=== PATIENT | female | born 1985 | race Caucasian/White ===

== ENCOUNTER 2024-04-11 12:31 | Outpatient (CLI) | payer OTHER, SELFPAY ==
--- OUTSIDE RECORDS SUMMARY | 2024-04-11 12:35 | XMS_ITS | Clinical Summary ---
Author Organization [facility] Address [address] [place] [place] [address] Care Team Providers Care Plastic Surgery Technician Name Role Phone Deja Mendez PA-C Unavailable [phone] Allergies No known active allergies Medications Medication Sig Dispensed Refills Start Date End Date Status hydrOXYzine (ATARAX) 25 MG tabletIndications:A nxiety Take 0.5-1 tablets (12.5-25 mg) by mouth 3 times daily as needed for anxiety 30 tablet 11/24/2022 Active Additional Information Patient not taking.Reported on 12/14/2023 FLUoxetine (PROZAC) 40 MG capsuleIndications: Moderate major depression (H) Take 1 capsule (40 mg) by mouth daily 90 capsule 1 04/20/2023 Active ADDERALL XR 10 MG 24 hr capsuleIndications: ADHD (attention deficit hyperactivity disorder), combined type TAKE ONE CAPSULE BY MOUTH ONCE DAILY 30 capsule 10/01/2023 Active ADDERALL XR 30 MG 24 hr capsuleIndications: ADHD (attention deficit hyperactivity disorder), combined type TAKE ONE CAPSULE BY MOUTH ONCE DAILY 30 capsule 10/01/2023 Active amphetamine-dextroa mphetamine (ADDERALL XR) 10 MG 24 hr capsuleIndications: ADHD (attention deficit hyperactivity disorder), combined type Take 1 capsule (10 mg) by mouth daily 30 capsule 12/10/2023 Active amphetamine-dextroa mphetamine (ADDERALL XR) 30 MG 24 hr capsuleIndications: ADHD (attention deficit hyperactivity disorder), combined type Take 1 capsule (30 mg) by mouth daily 30 capsule 12/10/2023 Active levothyroxine (SYNTHROID/LEVOTHRO ID) 25 MCG tabletIndications:H ypothyroidism, unspecified type Take 1 tablet (25 mcg) by mouth daily 90 tablet 1 12/14/2023 Active citalopram (CELEXA) 10 MG tabletIndications:M oderate major depression (H),Anxiety Take 1 tablet (10 mg) by mouth daily 30 tablet 02/11/2024 Active amphetamine-dextroa mphetamine (ADDERALL XR) 10 MG 24 hr capsuleIndications: ADHD (attention deficit hyperactivity disorder), combined type Take 1 capsule (10 mg) by mouth daily for 30 days Take in combination with 30 XR 30 capsule 03/08/2024 4 amphetamine-dextroa mphetamine (ADDERALL XR) 30 MG 24 hr capsuleIndications: ADHD (attention deficit hyperactivity disorder), combined type Take 1 capsule (30 mg) by mouth daily for 30 days 30 capsule 03/08/2024 4 Active Problems Problem Noted Date Diagnosed Date Controlled substance agreement signed 11/24/2022 Cervical high risk HPV (human papillomavirus) te st positive 03/15/2018 Overview: Hx of LSIL in 2014, no record of colposcopy. 03/15/18 NIL, +HR HPV, not 16/18. Plan colp 10/06/18 Patient is lost to pap tracking follow-up. 07/28/19 NIL, +HR HPV, not 16/18. Plan [place] 06/11/20 Patient is lost to pap tracking follow-up. 11/21/21 NIL Pap, Neg HPV. Plan cotest in 1 year. 11/28/2021 MyChart result note sent. Not read. Letter sent to pt 11/04/2022 Reminder MyChart 11/24/22 appt - added note 01/26/23 appt - canceled 02/17/2023 Reminder call - lm 04/20/23 appt - period started. Will schedule another appt for pap. 05/03/2023 Lost to follow-up for pap tracking - pt aware she needs pap done. Hypothyroidism 01/01/2016 Red blood cell antibody positive 12/04/2014 Overview: Unidentified Antibody Present Antibody with no identifiable specific reactivity. ADHD (attention deficit hype ractivity disorder), combined type 07/04/2013 Overview: Patient is followed by MARIEL GALINDO for ongoing prescription of stimulants. All refills should be approved by this provider, or covering partner. Medication(s): GENERIC ADDERALL 10 MG. And Generic Adderall XR 30 MG Maximum quantity per month: 30 Clinic visit frequency required: Q 3 months Controlled substance agreement on file: Date(s): 01/01/16 Neuropsych evaluation for ADD completed: UNKNOWN Last [employer] website verification: 06/28/19 [email or web address] Last Assessment & Plan: Patient is followed by MARIEL GALINDO for ongoing prescription of stimulants. All refills should be approved by this provider, or covering partner. Medication(s): amphetamine-dextroamphetamine (ADDERALL XR) 30 MG per 24 hr capsule. Maximum quantity per month: 30 Clinic visit frequency required: Q 6 months Controlled substance agreement on file: No Neuropsych evaluation for ADD completed: No Last [employer] website verification: done on 05.10.17 [email or web address] CARDIOVASCULAR SCREENING; LDL GOAL LESS THAN 160 08/08/2012 Moderate major depression 08/08/2012 Anxiety 08/08/2012 Resolved Problems Problem Noted Date Diagnosed Date Resolved Date Anemia due to blood loss, acute 12/05/2020 10/16/2021 12/03/2020 10/16/2021 (spontaneous vaginal delivery) 09/25/2016 10/16/2021 Labor and delivery, indication for care 09/24/2016 10/23/2016 Labor abnormality, antepartum 06/14/2015 06/19/2015 (spontaneous vaginal delivery) 06/14/2015 10/23/2016 Encounter for triage in patient 05/15/2015 06/19/2015 Indication for care in labor or delivery 12/31/2014 01/01/2016 Rubella non-immune status, antepartum 12/04/2014 10/23/2016 Overview: Rubella immunity equivocal Encounter for supervision of other normal 11/28/2014 06/19/2015 Overview: Diagnosis updated by automated process. Provider to review and confirm. History of hypothyroidism as a child 11/28/2014 01/01/2016 Encounters Date Type Department Care Team Description 02/11/2024 Refill M [address] [address] Deja Mendez PA-C Refill Request from Last 3 Months Immunizations Name Administration Dates Next Due Influenza Vaccine >6 months,quad, PF 07/28/2019, 07/11/2018 TDAP (Adacel,Boostrix) 05/13/2015 TDAP Vaccine (Adacel) 10/22/2020 Tdap (Adult) Unspecified Formulation 07/23/2016 Family History Medical History Relation Comments Depression/Anxiety Father Hyperlipidemia Father Hypertension Father Thyroid Disease Maternal Grandfather Cancer Maternal Grandmother Thyroid Disease Mother Depression/Anxiety Sister 3 Known Genetic Syndrome Sister 4 Austic Autism Spectrum Disorder Sister 5 Anesthesia Reaction No family hx of Breast Cancer No family hx of Cancer - colorectal No family hx of Cerebrovascular Disease No family hx of Chemical Addiction No family hx of Coronary Artery Disease No family hx of Diabetes No family hx of Osteoporosis No family hx of Ovarian Cancer No family hx of Prostate Cancer No family hx of Relation Status Comments Father Alive Maternal Grandfather Alive Maternal Grandmother CA Mother Alive Paternal Grandfather Alive Paternal Grandmother Alive Sister 1 Alive Sister 2 Alive Sister 3 Sister 4 Sister 5 Son 1 Alive Son 2 Alive Social History Tobacco Use Types Packs/Day Years Used Date Smoking Tobacco: Never Smokeless Tobacco: Never Tobacco Cessation:Counseling Given: Yes Alcohol Use Standard Drinks/Week Comments Yes 0 (1 standard drink = 0.6 oz pur e alcohol) wine occasionally Social Connection and Isolation Panel [NHANES] A nswer Date Recorded In a typical week, how many times do you talk on the phone with family, friends, or neighbors? Twice a week 04/20/2023 How often do you get togethe r with friends or relatives? Patient declined 04/20/2023 How often do you attend alevism or scientologist serv ices? Never 04/20/2023 Do you belong to any clubs o r organizations such as alevism groups, unions, fraternal or athletic groups, or school groups? No 04/20/2023 Attends Club or Organization Meetings Not on leighton e 04/20/2023 Are you , , di vorced, , never , or living with a partner? 04/20/2023 AUDIT-C Answer Date Recorded Q1: How often do you have a drink containing alcohol? 4 or more times a week 04/20/2023 Q2: How many drinks containi ng alcohol do you have on a typical day when you are drinking? 1 or 2 3 Q3: How often do you have si x or more drinks on one occasion? Never 04/20/2023 Overall Financial Resource Strain (CARDIA) Answe r Date Recorded How hard is it for you to pa y for the very basics like food, housing, medical care, and heating? Not very hard 04/20/2023 PHQ-2 Answer Date Recorded PHQ-2 Score 3 12/14/2023 [facility] - Occupational Stress Questionnaire Answer Date Recorded Do you feel stress - tense, restless, nervous, or anxious, or unable to sleep at night because your mind is troubled all the time - these days? Rather much 04/20/2023 Exercise Vital Sign Answer Date Recorde d On average, how many days pe r week do you engage in moderate to strenuous exercise (like a brisk walk)? 3 days 04/20/2023 On average, how many minutes do you engage in exercise at this level? 30 min 04/20/2023 Hunger Vital Sign Answer Date Recorded Within the past 12 months, y ou worried that your food would run out before you got the money to buy more. Never true 04/20/20 23 Within the past 12 months, t he food you bought just didn't last and you didn't have money to get more. Never true 04/20/2023 PRAPARE - Transportation Answer Date Re corded In the past 12 months, has l ack of transportation kept you from medical appointments or from getting medications? No 04/2023 In the past 12 months, has l ack of transportation kept you from meetings, work, or from getting things needed for daily living? No 04/20/2023 Housing Stability Vital Sign Answer Clayton e Recorded In the last 12 months, was t here a time when you were not able to pay the mortgage or rent on time? No 04/20/2023 In the last 12 months, how many places have you lived? 1 04/20/2023 In the last 12 months, was t here a time when you did not have a steady place to sleep or slept in a fpc (including now)? No 04/20/2023 [place] Depression Scale Answer Date Recorded [place] Depression Score 16 12/04/2020 Last EPDS Self Harm Result Not on file 12/04 Adolescent Education Answer Date Record ed Getting School Help Needed Not on file 06/04 Sex and Gender Information Value Date Recorded Sex Assigned at Female 04/07/2021 2:32 PM CDT Gender Identity Female 04/07/2021 2:32 PM CDT Sexual Orientation Straight 04/07/2021 2: 32 PM CDT Last Filed Vital Signs Vital Sign Reading Time Taken Comments Blood Pressure 115/80 04/20/2023 3:02 PM CDT Pulse 103 04/20/2023 3:02 PM CDT Temperature 36.7 ??C (98 ??F) 04/20/2023 3:02 PM CDT Respiratory Rate 18 04/20/2023 3:02 PM CDT Oxygen Saturation 98% 04/20/2023 3:02 PM CDT Inhaled Oxygen Concentration - - Weight 65.3 kg (144 lb) 04/20/2023 3:02 PM CDT Height 165.1 cm (5' 5) 04/20/2023 3:02 PM CDT Body Mass Index 23.96 04/20/2023 3:02 PM CDT Plan of Treatment Health Maintenance Due Date Last Done Comments HEPATITIS B IMMUNIZATION (1 of 3 - 19+ 3-dose series) 2004 HPV FOLLOW-UP 11/21/2022 11/21/2021, 0 09/2019, 05/14/2020, Additional history exists PAP FOLLOW-UP 11/21/2022 11/21/2021, 0 09/2019, 05/14/2020, Additional history exists COVID-19 Vaccine ( season) 2023 TSH W/FREE T4 REFLEX 11/25/2023 11/24/2022, 10/16/2021, 07/28/2019, Additional history exists YEARLY PREVENTIVE VISIT 04/20/2024 04/20/20 23, 11/21/2021, 03/15/2018 INFLUENZA VACCINE (#1) 2024 07/28/2019, 2017 PHQ-9 06/14/2024 12/14/2023, 08/0 04/2023, 01/25/2023, Additional history exists ANNUAL REVIEW OF HM ORDERS 12/13/202412/13, 11/24/2022, 11/21/2021, Additional history exists GLUCOSE 04/20/2026 04/20/2023, 10/16/2021 ADVANCE CARE PLANNING 11/21/2026 11/21/2021 DTAP/TDAP/TD IMMUNIZATION (4 - Td or Tdap) 10/22/2030 10/22/2020, 07/23/2016, 05/13/2015 HIV SCREENING Completed 05/20/2016, 11/28/2014 DEPRESSION ACTION PLAN Completed 8, 10/23/2016, 06/19/2015, Additional history exists PAP Discontinued 11/21/2021, 090 09/2019, 05/14/2020, Additional history exists HEPATITIS C SCREENING Completed 04/20/2023 HPV IMMUNIZATION Aged Out No longer e ligible based on patient's age to complete this topic IPV IMMUNIZATION Aged Out No longer e ligible based on patient's age to complete this topic MENINGITIS IMMUNIZATION Aged Out No l onger eligible based on patient's age to complete this topic Pneumococcal Vaccine: Pediatrics (0 to 5 Years) and At-Risk Patients (6 to 64 Years) Aged Out No longer eligible based on patient's age to complete this topic RSV MONOCLONAL ANTIBODY Aged Out No l onger eligible based on patient's age to complete this topic Procedures Procedure Name Priority Date/Time Associated Diagnosis Comments BASIC METABOLIC PANEL Routine 04/20/2023 3:45 PM CDT Screening for diabetes mellitus HEPATITIS C SCREEN REFLEX TO HCV RNA QUANT AND GENOTYPE Routine 04/20/2023 3:45 PM CDT Need for hepatitis C screening test TSH WITH FREE T4 REFLEX Routine 11/24/2022 11:06 AM CDT Other specified hypothyroidism HPV HIGH RISK TYPES DNA CERVICAL Routine 11/21/2021 8:09 AM MASTER LAY OUT SPECIALIST Cervical cancer screening GYNECOLOGIC CYTOLOGY Routine 11/21/2021 8:09 AM MASTER LAY OUT SPECIALIST Cervical cancer screening HIV ANTIGEN ANTIBODY COMBO Routine 05/20/2016 from Last 3 Months or Most Recently Relevant to Health Maintenance Results * Hepatitis C Screen Reflex to HCV RNA Quant and Genotype (04/20/2023 3:45 PM CDT) Hepatitis C Antibody Nonreactive Nonreactive 04/22/2023 12:15 PM CDT SPECIALTY CORE/PROT/EN DO Blood BLOOD SPECIMEN / Unknown Venipuncture / Unknown 04/20/2023 3:45 PM CDT 04/20/2023 3:45 PM CDT Narrative SPECIALTY CORE/PROT/ENDO - 04/22/2023 12:15 PM CDT Assay performance characteristics have not been established for newborns, infants, and children. Nadege Robert KELLEY [facility] - BLOOD ORDE ELE[facility] SPECIALTY CORE/PROT/ENDO Specialty Core/Prot/Endo [address] [facility], [address] [address], [facility] [place] [phone] * Basic metabolic panel (Ca, Cl, CO2, Creat, Gluc, K, Na, BUN) (04/20/2023 3:45 PM CDT) Pathologist [facility] [place] Sodium 137 136 - 145 mmol/L 04/21/2023 3:40 PM CDT [facility] Potassium 4.2 3.4 - 5.3 mmol/L 04/21/2023 3:40 PM CDT [facility] Chloride 99 98 - 107 mmol/L 04/21/2023 3:40 PM CDT [facility] Carbon Dioxide (CO2) 26 22 - 29 mmol/L 04/21/2023 3:40 PM CDT [facility] Anion Gap 12 7 - 15 mmol/L 04/21/2023 3:40 PM CDT [facility] Urea Nitrogen 10.7 6.0 - 20.0 mg/dL 04/21/2023 3:40 PM CDT [facility] Creatinine 0.58 0.51 - 0.95 mg/dL 04/21/2023 3:40 PM CDT [facility] Calcium 9.6 8.6 - 10.0 mg/dL 04/21/2023 3:40 PM CDT [facility] Glucose 94 70 - 99 mg/dL 04/21/2023 3:40 PM CDT [facility] GFR Estimate >90 >60 mL/min/1.7 3m2 04/21/2023 3:40 PM CDT [facility] Blood BLOOD SPECIMEN / Unknown Venipuncture / Unknown 04/20/2023 3:45 PM CDT 04/20/2023 3:45 PM CDT Nadege Jones APRN [facility] - BLOOD ORDE [facility]AT[facility] [place] Core Lab [address] [facility], [address] [id number], [facility] [place] [phone] * TSH WITH FREE T4 REFLEX (11/24/2022 11:06 AM CDT) TSH 1.31 0.30 - 4.20 uIU/mL 11/24/2022 5:51 PM CDT [facility] Blood BLOOD SPECIMEN / Unknown Venipuncture / Unknown 11/24/2022 11:06 AM CDT 11/24/2022 11:10 AM CDT Nadege Jones APRN [facility] - BLOOD ORDE [facility] [place] [facility] Lab [address] [facility] [id number], [facility] [place] [phone] * Pap Screen with HPV - recommended age 30 - 65 years (11/21/2021 8:09 AM MASTER LAY OUT SPECIALIST) Interpretation Negative for Intraepithelial Lesion or Malignancy (NILM) 11/25/2021 9:24 AM CDT SPECIALTY LABS Comment Papanicolaou Test Limitations: Cervical cytology is a screening test with limited sensitivity, and regular screening is critical for cancer prevention. Pap tests are primarily effective for the diagnosis/prevent ion of squamous cell carcinoma, not adenocarcinoma or other cancers. 11/25/2021 9:24 AM CDT [facility] LAB[facility] Specimen Adequacy Satisfactory for evaluation, endocervical/winters sformation zone component present 11/25/2021 9:24 AM CDT [facility] Clinical Information none 11/25/2021 9:24 AM CDT [facility] LMP/Menopause Date 11/05/2021 11/25/2021 9:24 AM CDT [facility] Reflex Testing Yes regardless of result 11/25/2021 9:24 AM CDT [facility] LAB[facility] Previous Abnormal? No 11/25/2021 9:24 AM CDT [facility] Performing Labs The technical component of this testing was completed at [facility] 11/25/2021 9:24 AM CDT SPECIAL[facility] LABS Brushing CERVIX UTERI STRUCTURE / Unknown 11/21/2021 8:09 AM MASTER LAY OUT SPECIALIST 11/21/2021 8:24 AM MASTER LAY OUT SPECIALIST Mariel Galindo APRN [facility] Specialty Lab [address] [facility], [address] [address], [facility] [place] [phone] * HPV High Risk Types DNA Cervical (11/21/2021 8:09 AM MASTER LAY OUT SPECIALIST) Other HR HPV Negative Negative 11/26/2021 2:10 PM CDT [facility]ST[facility] HPV16 DNA Negative Negative 11/26/2021 2:10 PM CDT [facility]AG[facility]ST[facility] HPV18 DNA Negative Negative 11/26/2021 2:10 PM CDT [facility] DIAGNOSTICS FINAL DIAGNOSIS This patient's sample is negative for HPV DNA. This test was developed and its performance characteristics determined by the [facility], Molecular Diagnostics Laboratory. It has not been cleared or approved by the FDA. The laboratory is regulated under CLIA as qualified to perform high-complexity testing. This test is used for clinical purposes. It should not be regarded as investigational or for research. METHODOLOGY: The Andreas Amada 4800 system uses automated extraction, simultaneous amplification of HPV (L1 region) and beta-globin, followed by real time detection of fluorescent labeled HPV and beta globin using specific oligonucleotide probes. The test specifically identified types HPV 16 DNA and HPV 18 DNA while concurrently detecting the rest of the high risk types (31, 33, 35, 39, 45, 51, 52, 56, 58, 59, 66 or 68). COMMENTS: This test is not intended for use as a screening device for woman under age 30 with normal cervical cytology. Results should be correlated with cytologic and histologic findings. Close clinical followup is recommended. 11/26/2021 2:10 PM CDT [facility] Brushing CERVIX UTERI STRUCTURE / Unknown Non-blood Collection / Unknown 11/21/2021 8:09 AM MASTER LAY OUT SPECIALIST 11/25/2021 3:59 PM CDT Mariel Galindo APRN [facility] - BLOOD ORDERABLES MOLECULAR DIAGNOSTICS Molecular Diagnostics [address] [facility], [address] [place] [address], [facility] [place] [phone] * HIV Antigen Antibody Combo (05/20/2016) HIV Antigen Antibody Combo Negative Blood specimen (specimen) Patient Reported LAB - BLOOD ORDERABL ES from Last 3 Months or Most Recently Relevant to Health Maintenance Care Teams Plastic Surgery Technician Relationship Specialty Start Date End Date Deja Mendez PA-C [id number] [facility] [place] [phone] Assigned PCP 01/04/24
--- OUTSIDE RECORDS SUMMARY | 2024-04-11 12:35 | XMS_ITS | Encounter Summary ---
Author Organization [facility] Address [address] [place] [address]. [place] [address] Care Team Providers Care Detective Narcotics And Vice Name Role Phone Deja Mendez PA-C Unavailable [phone] Reason for Visit * Reason Onset Date Comments Refill Request 02/11/2024 Encounter Details Date Type Department Care Team (Late st Contact Info) Description 02/11/2024 [facility] [address] [place] [phone] Deja Mendez PA-C [id number] [place] [phone] Refill Request Social History Tobacco Use Types Packs/Day Years Used Date Smoking Tobacco: Never Smokeless Tobacco: Never Alcohol Use Standard Drinks/Week Comments Yes 0 [...] declined 04/20/2023 How often do you attend congregational or gnosticist serv ices? Never 04/20/2023 Do you belong to any clubs o r organizations such as congregational groups, unions, fraternal or athletic groups, or [...] Answer Date Recorded PHQ-2 Score 3 12/14/2023 [facility] - Occupational Stress Questionnaire Answer Date [...] place to sleep or slept in a assisted (including now)? No 04/20/2023 Antelope Depression Scale Answer Date Recorded Antelope Depression Score 16 12/04/2020 Last EPDS Self Harm Result Not on file 12/04 Adolescent Education Answer Date Record ed Getting School Help Needed Not on file 06/04 Sex and Gender Information Value Date Recorded Sex Assigned at Female 04/07/2021 2:32 PM CDT Gender Identity Female 04/07/2021 2:32 PM CDT Sexual Orientation Straight 04/07/2021 2: 32 PM CDT documented as of this encounter Miscellaneous Notes * Telephone Encounter - Kiley Ba MA - 02/14/2024 8:40 AM CDT Pt informed. She was not able to schedule a appointment at the moment but says she will call back to schedule. * Telephone Encounter - Deja Mendez PA-C - 02/11/2024 2:48 PM CDT Due for virtual or in person follow up visit for med check if we could help her with scheduling this. Refilled one month supply to allow for scheduling. Thanks! Deja Mendez PA-C documented in this encounter Plan of Treatment Not on file documented as of this encounter Visit Diagnoses Diagnosis Moderate major depression (H) Major depressive disorder, single episode, moderate Anxiety Anxiety state, unspecified documented in this encounter Additional Health Concerns Assessment Noted Time PHQ-9 Depression Total Score: 12 024 4:09 PM CDT documented as of this encounter Care Teams Detective Narcotics And Vice Relationship Specialty Start Date End Date Deja Mendez PA-C [address] [place] [address] Assigned PCP 01/04/24 documented as of this encounter
--- OUTSIDE RECORDS SUMMARY | 2024-04-11 12:35 | XMS_ITS | Referral Summary ---
Author Organization [facility] Address [address] [place] [address] Care Team Providers Care Registered Nurse Teacher Name Role Phone Deja Mendez PA-C Unavailable [phone] Encounters Date Type Department Care Team Description 02/11/[address] [address] Deja Mendez PA-C Refill Request from Last 3 Months Allergies No known active allergies Medications Medication [...] 07/28/19 NIL, +HR HPV, not 16/18. Plan [place] 06/11/20 Patient is lost to pap tracking [...] Neuropsych evaluation for ADD completed: UNKNOWN Last [employer] website verification: 06/28/19 [email or web address] Last Assessment & Plan: Patient is followed by MARIEL GALINDO for ongoing prescription of stimulants. All refills should be approved by this provider, or covering partner. Medication(s): amphetamine-dextroamphetamine (ADDERALL XR) 30 MG per 24 hr capsule. Maximum quantity per month: 30 Clinic visit frequency required: Q 6 months Controlled substance agreement on file: No Neuropsych evaluation for ADD completed: No Last [employer] website verification: done on 05.10.17 [email or web address] [email or web address] SCREENING; LDL GOAL LESS THAN 160 [...] of hypothyroidism as a child 11/28/2014 01/01/2016 Immunizations Name Administration Dates Next Due Influenza Vaccine >6 months,quad, PF 07/28/2019, 07/11/2018 TDAP (Adacel,Boostrix) 05/13/2015 TDAP Vaccine (Adacel) 10/22/2020 Tdap (Adult) Unspecified Formulation 07/23/2016 Social History Tobacco Use Types Packs/Day Years [...] declined 04/20/2023 How often do you attend restorationism or muslim serv ices? Never 04/20/2023 Do you belong to any clubs o r organizations such as restorationism groups, unions, fraternal or athletic groups, or [...] Answer Date Recorded PHQ-2 Score 3 12/14/2023 [facility] Occupat ional [facility] - Occupational Stress Questionnaire Answer Date Recorded [...] place to sleep or slept in a [facility] (including now)? No 04/20/2023 [place] Depression Scale Answer Date Recorded [place] Depression Score 16 12/04/2020 Last EPDS Self [...] 04/20/2023 3:02 PM CDT Plan of Treatment Not on file Procedures Procedure Name Priority Date/Time Associated Diagnosis [...] TYPES DNA CERVICAL Routine 11/21/2021 8:09 AM RESPIRATORY CARE PRACTITIONER Cervical cancer screening GYNECOLOGIC CYTOLOGY Routine 11/21/2021 8:09 AM RESPIRATORY CARE PRACTITIONER Cervical cancer screening HIV ANTIGEN ANTIBODY COMBO Routine 05/20/2016 from Last 3 Months or Most Recently Relevant to Health Maintenance Results * Hepatitis C Screen Reflex to HCV RNA Quant and Genotype (04/20/2023 3:45 PM CDT) Hepatitis C Antibody Nonreactive Nonreactive 04/22/2023 12:15 PM CDT [facility]/PROT/EN DO Blood BLOOD SPECIMEN / Unknown Venipuncture / Unknown 04/20/2023 3:45 PM CDT 04/20/2023 3:45 PM CDT Narrative [facility]/PROT/ENDO - 04/22/2023 12:15 PM CDT Assay performance characteristics have not been established for newborns, infants, and children. Nadege Jones APRN OIL PIPE INSPECTOR LAB - BLOOD ORDE ELEUTERIO [facility] CORE/PROT/ENDO [facility] Specialty Core/Prot/Endo [address] [facility], [address] [place] [address], [facility] [phone] * Basic metabolic panel (Ca, Cl, CO2, Creat, Gluc, K, Na, BUN) (04/20/2023 3:45 PM CDT) Sodium 137 136 - 145 mmol/L 04/21/2023 [...] CDT 04/20/2023 3:45 PM CDT Nadege Jones [facility] - BLOOD ORDBrandi MCCLELLAN [facility]AT[facility] [address] [facility], [address] [address], [facility] [phone] * TSH WITH FREE T4 REFLEX (11/24/2022 11:06 AM CDT) TSH 1.31 0.30 - 4.20 uIU/mL 11/24/2022 5:51 PM CDT [facility]AT[facility] Blood BLOOD SPECIMEN / Unknown Venipuncture / Unknown 11/24/2022 11:06 AM CDT 11/24/2022 11:10 AM CDT Nadege Jones [facility] - BLOOD PATRICIA HARRISONPEARL Performing Organization Address City/Va Hospital/ZIP Co de Phone Number LABORATORY [facility] Core Lab [address] [facility], [address] [address], [facility] [phone] * Pap Screen with HPV - recommended age 30 - 65 years (11/21/2021 8:09 AM RESPIRATORY CARE PRACTITIONER) Interpretation Negative for Intraepithelial Lesion or Malignancy [...] component of this testing was completed at [facility] 11/25/2021 9:24 AM CDT SPECIALTY LABS Brushing CERVIX UTERI STRUCTURE / Unknown 11/21/2021 8:09 AM RESPIRATORY CARE PRACTITIONER 11/21/2021 8:24 AM RESPIRATORY CARE PRACTITIONER Mariel Galindo APRN OIL PIPE INSPECTOR LAB - [facility] Specialty Lab 500 [facility], Room [address] [place] [address], [facility] [phone] * HPV High Risk Types DNA Cervical (11/21/2021 8:09 AM RESPIRATORY CARE PRACTITIONER) Other HR HPV Negative Negative 11/26/2021 2:10 PM CDT MOLECULAR DIAGNOSTICS HPV16 DNA Negative Negative 11/26/2021 2:10 PM CDT MOLECULAR DIAGNOSTICS HPV18 DNA Negative Negative 11/26/2021 2:10 PM CDT MOLECULAR DIAGNOSTICS FINAL DIAGNOSIS This patient's sample is negative for HPV DNA. This test was developed and its performance characteristics determined by the [facility], Molecular Diagnostics Laboratory. It has not been [...] followup is recommended. 11/26/2021 2:10 PM CDT [facility] MO[facility]CULAR DIAGNOSTICS Brushing CERVIX UTERI STRUCTURE / Unknown Non-blood Collection / Unknown 11/21/2021 8:09 AM RESPIRATORY CARE PRACTITIONER 11/25/2021 3:59 PM CDT Mariel Argelia Haase TRANSACTIONAL ATTORNEY OIL PIPE INSPECTOR LAB - BLOOD ORDERABLES [facility] MOLECULAR DIAGNOSTICS [facility] Molecular Diagnostics [address], [address] [address], [facility] [phone] * HIV Antigen Antibody Combo (05/20/2016) HIV Antigen Antibody Combo Negative Blood specimen (specimen) Patient Reported LAB - BLOOD ORDERABL ES from Last 3 Months or Most Recently Relevant to Health Maintenance Care Teams Registered Nurse Teacher Relationship Specialty Start Date End Date Deja Mendez PA-C [id number] [place] [address] Assigned PCP 01/04/24
--- OUTSIDE RECORDS SUMMARY | 2024-04-11 12:35 | XMS_ITS | Encounter Summary ---
Author Organization [facility] Address [address] [place] [address]. [place] [address] Care Team Providers Care Kiln Firer Name Role Phone No Ref-Primary, Physician Primary Care Provider MateoMariel MANAGER ASSURANCE LEAD REFINERY SUPERVISOR Unavailable Un available Nadege Jones APRN LEAD REFINERY SUPERVISOR Unavailable Unavail able MateoMariel MANAGER ASSURANCE LEAD REFINERY SUPERVISOR Unavailable Un available MateoMariel MANAGER ASSURANCE LEAD REFINERY SUPERVISOR Unavailable Un available MateoMariel APRN LEAD REFINERY SUPERVISOR Unavailable Un available Deja Mendez PA-C Unavailable [phone] Encounter Details Date Type Department Care Team (Late st Contact Info) Description 04/16/2023 MyC Medical Advice [address] [address] Kimberly Montanez, [facility] Social History Tobacco Use Types Packs/Day Years [...] declined 04/20/2023 How often do you attend jain or sikhism serv ices? Never 04/20/2023 Do you belong to any clubs o r organizations such as jain groups, unions, fraternal or athletic groups, or [...] 04/20/2023 PHQ-2 Answer Date Recorded PHQ-2 Score 4 04/20/2023 [facility] Occupat ional [facility] - Occupational Stress Questionnaire Answer Date Recorded [...] place to sleep or slept in a [place] health [place] facility (including now)? No 04/20/2023 [place] Depression Scale Answer Date Recorded [place] Depression Score 16 12/04/2020 Last EPDS Self Harm Result Not on file 12/04 Sex and Gender Information Value Date Recorded Sex Assigned at Female 04/07/2021 2:32 PM CDT Gender Identity Female 04/07/2021 2:32 PM CDT Sexual Orientation Straight 04/07/2021 2: 32 PM CDT documented as of this encounter Plan of Treatment Not on file documented as of this encounter Visit Diagnoses Not on filedocumented in this encounter Additional Health Concerns Assessment Noted Time PHQ-9 Depression Total Score: 12 023 3:55 PM CDT documented as of this encounter Care Teams Kiln Firer Relationship Specialty Start Date End Date No Ref-Primary, Physician PCP - General 06/09/22 06/02/23 Mariel Galindo APRN CNP Assigned PCP 01/16/23 04/23/23 Nadege Jones APRN LEAD REFINERY SUPERVISOR Assigned PCP 04/24/23 10/06/23 Mariel Galindo APRN CNP Assigned PCP 10/07/23 11/04/23 Mariel Galindo APRN LEAD REFINERY SUPERVISOR Assigned PCP 11/05/23 12/03/23 Mariel Galindo APRN CNP Assigned PCP 12/04/23 01/03/24 Deja Mendez PA-C [address] [place] [phone] Assigned PCP 01/04/24 documented as of this encounter
--- OUTSIDE RECORDS SUMMARY | 2024-04-11 12:36 | XMS_ITS | Encounter Summary ---
Author Organization [facility] Address [address] [place] [address]. [place] [address] Care Team Providers Care Physical Education Aide Name Role Phone No Ref-Primary, Physician Primary Care Provider MateoMariel APRN PSYCH COORDINATOR Unavailable Un available Nadege Jones APRN PSYCH COORDINATOR Unavailable Unavail able Mateo, Mariel Stout APRN PSYCH COORDINATOR Unavailable Un available Mateo, Mariel Stout APRN PSYCH COORDINATOR Unavailable Un available Mateo, Mariel Stout APRN PSYCH COORDINATOR Unavailable Un available Deja Mendez PA-C Unavailable [phone] Reason for Visit * Reason Onset Date Comments Refill Request 02/18/2023 Encounter Details Date Type Department Care Team (Late st Contact Info) Description 02/18/2023 MyC Refill [facility] [address] [place] [phone] Amanda Tolbert PA-C [address] [place], [place] [phone] Refill Request Social History Tobacco Use Types Packs/Day Years Used Date Smoking Tobacco: Never Smokeless Tobacco: Never Alcohol Use Standard Drinks/Week Comments Yes 0 (1 standard drink = 0.6 oz pur e alcohol) wine occasionally PHQ-2 Answer Date Recorded PHQ-2 Total Score (Adult) - Positive if 3 or more points; Administer PHQ-9 if positive 2 02/18/2023 [place] Depression Scale Answer Date Recorded [place] Depression Score 16 12/04/2020 Last EPDS Self Harm Result Not on file 12/04 Sex and Gender Information Value Date Recorded Sex Assigned at Female 04/07/2021 2:32 PM CDT Gender Identity Female 04/07/2021 2:32 PM CDT Sexual Orientation Straight 04/07/2021 2: 32 PM CDT documented as of this encounter Plan of Treatment Not on file documented as of this encounter Visit Diagnoses Diagnosis ADHD (attention deficit hyperactivity disorder), combined type Attention deficit disorder with hyperactivity documented in this encounter Additional Health Concerns Assessment Noted Time PHQ-9 Depression Total Score: 12 023 3:55 PM CDT documented as of this encounter Care Teams Physical Education Aide Relationship Specialty Start Date End Date No Ref-Primary, Physician PCP - General 06/09/22 06/02/23 Mariel Galindo APRN PSYCH COORDINATOR Assigned PCP 01/16/23 04/23/23 Nadege Jones APRN PSYCH COORDINATOR Assigned PCP 04/24/23 10/06/23 Mariel Galindo APRN PSYCH COORDINATOR Assigned PCP 10/07/23 11/04/23 Mariel Galindo APRN PSYCH COORDINATOR Assigned PCP 11/05/23 12/03/23 Mariel Galindo APRN PSYCH COORDINATOR Assigned PCP 12/04/23 01/03/24 Deja Mendez PA-C [address] [place] [address] Assigned PCP 01/04/24 documented as of this encounter
--- OUTSIDE RECORDS SUMMARY | 2024-04-11 12:36 | XMS_ITS | Encounter Summary ---
Author Organization [facility] Address [address] [place] [address]. [place] [address] Care Team Providers Care Shipping Point Inspector Name Role Phone Mariel Galindo APRN TALENT RECRUITER Primary Care Provi adam Unavailable Mateo, Mariel Stout APRN TALENT RECRUITER Unavailable Un available Samia Silverman MD Unavailable [phone] No Ref-Primary, Physician Primary Care Provider MateoMariel meng APRN TALENT RECRUITER Unavailable Un available Nadege Jones APRN TALENT RECRUITER Unavailable Unavail able Mateo, Mariel Stout APRN TALENT RECRUITER Unavailable Un available Nadege Jones APRN TALENT RECRUITER Unavailable Unavail able Mateo, Mariel Stout APRN TALENT RECRUITER Unavailable Un available Mateo, Mariel Stout APRN TALENT RECRUITER Unavailable Un available Mateo, Mariel Stout APRN TALENT RECRUITER Unavailable Un available Deja Mendez PA-C Unavailable [phone] Reason for Visit * Reason Onset Date Comments Refill Request 03/06/2021 Encounter Details Date Type Department Care Team (Late st Contact Info) Description 03/06/2021 MyC Refill [address] [address] Mariel Galindo APRN CNP Refill Request Social History Tobacco Use Types Packs/Day Years Used Date Smoking Tobacco: Never Smokeless Tobacco: Never Alcohol Use Standard Drinks/Week Comments Not Currently 0 (1 standard drink = 0.6 oz pur e alcohol) wine occasionally PHQ-2 Answer Date Recorded PHQ-2 Total Score (Adult) - Positive if 3 or more points; Administer PHQ-9 if positive 0 03/06/2021 [place] Depression Scale Answer Date Recorded [place] Depression Score 16 12/04/2020 Last EPDS Self Harm Result Not on file 12/04 Sex and Gender Information Value Date Recorded Sex Assigned at Female 04/07/2021 2:32 PM CDT Gender Identity Female 04/07/2021 2:32 PM CDT Sexual Orientation Straight 04/07/2021 2: 32 PM CDT documented as of this encounter Miscellaneous Notes * Telephone Encounter - Tamra Chavez PA-C - 03/06/2021 3:51 PM CDT Fluoxetine just filled last month for 90 days. * Telephone Encounter - Trish Salvador RN - 03/06/2021 1:55 PM CDT Routing refill request to provider for review/approval because: Drug not on the [facility] [place] protocol Failing PHQ9 Trish Salvador RN documented in this encounter Plan of Treatment Not on file documented as of this encounter Visit Diagnoses Diagnosis Moderate major depression (H) Major depressive disorder, single episode, moderate ADHD (attention deficit hyperactivity disorder), combined type Attention deficit disorder with hyperactivity documented in this encounter Additional Health Concerns Assessment Noted Time PHQ-9 Depression Total Score: 10 021 7:04 AM CDT documented as of this encounter Care Teams Shipping Point Inspector Relationship Specialty Start Date End Date Mariel Galindo APRN TALENT RECRUITER PCP - General Nurse Practitioner 08/13/14 06/08/22 No Ref-Primary, Physician PCP - General 06/09/22 06/02/23 Mariel Galindo APRN TALENT RECRUITER Assigned PCP 10/21/14 04/10/22 Samia Silverman MD [address] [place] [address] [place] [address] Assigned OBGYN Provider 08/04/20 Mateo, Mariel Stout APRN TALENT RECRUITER Assigned PCP 06/27/22 01/08/23 Nadege Jones APRN TALENT RECRUITER Assigned PCP 01/09/23 01/15/23 Mateo, Mariel Stout APRN TALENT RECRUITER Assigned PCP 01/16/23 04/23/23 Nadege Joens APRN TALENT RECRUITER Assigned PCP 04/24/23 10/06/23 Mateo, Mariel Stout APRN TALENT RECRUITER Assigned PCP 10/07/23 11/04/23 Mateo, Mariel Stout APRN TALENT RECRUITER Assigned PCP 11/05/23 12/03/23 Mateo, Mariel Stout APRN TALENT RECRUITER Assigned PCP 12/04/23 01/03/24 Deja Mendez PA-C [address] [place] [phone] Assigned PCP 01/04/24 documented as of this encounter
--- OUTSIDE RECORDS SUMMARY | 2024-04-11 12:36 | XMS_ITS | Encounter Summary ---
Author Organization [facility] Address [address] [place] [address]. [place] [address] Care Team Providers Care Street Sprinkler Name Role Phone Mariel Galindo APRN, CNP Primary Care Provi adam Unavailable Mateo, Mariel Stout APRN BOTTLING ATTENDANT Unavailable Un available Samia Silverman MD Unavailable [phone] No Ref-Primary, Physician Primary Care Provider MateoMariel meng APRN BOTTLING ATTENDANT Unavailable Un available Nadege Jones APRN BOTTLING ATTENDANT Unavailable Unavail able Mateo, Mariel Stout APRN BOTTLING ATTENDANT Unavailable Un available Nadege Jones APRN BOTTLING ATTENDANT Unavailable Unavail able Mateo, Mariel Stout APRN BOTTLING ATTENDANT Unavailable Un available Mateo, Mariel Stout APRN BOTTLING ATTENDANT Unavailable Un available Mateo, Mariel Stout APRN BOTTLING ATTENDANT Unavailable Un available Deja Mendez PA-C Unavailable [phone] Reason for Visit * Reason Onset Date Comments Refill Request 07/07/2021 Encounter Details Date Type Department Care Team (Late st Contact Info) Description 07/07/2021 [facility] [address] [address] Mariel Galindo APRN BOTTLING ATTENDANT Refill Request Social History Tobacco Use Types Packs/Day Years Used Date Smoking Tobacco: Never Smokeless Tobacco: Never Alcohol Use Standard Drinks/Week Comments Not Currently 0 (1 standard drink = 0.6 oz pur e alcohol) wine occasionally PHQ-2 Answer Date Recorded PHQ-2 Total Score (Adult) - Positive if 3 or more points; Administer PHQ-9 if positive 2 07/09/2021 [place] Depression Scale Answer Date Recorded [place] Depression Score 16 12/04/2020 Last EPDS Self [...] Assessment Noted Time PHQ-9 Depression Total Score: 8 04/08/20 21 7:03 AM CDT documented as of this encounter Care Teams Street Sprinkler Relationship Specialty Start Date End Date Mariel Galindo APRN CNP PCP - General Nurse Practitioner 08/13/14 06/08/22 No Ref-Primary, Physician PCP - General 06/09/22 06/02/23 Mariel Galindo APRN CNP Assigned PCP 10/21/14 04/10/22 Samia Silverman MD [address] [place] [address] Assigned OBGYN Provider 08/04/20 Mariel Galindo APRN CNP Assigned PCP 06/27/22 01/08/23 Nadege Jones APRN CNP Assigned PCP 01/09/23 01/15/23 Mariel Galindo APRN CNP Assigned PCP 01/16/23 04/23/23 Nadege Jones APRN CNP Assigned PCP 04/24/23 10/06/23 MateoMariel meng APRN BOTTLING ATTENDANT Assigned PCP 10/07/23 11/04/23 Mariel Galindo APRN BOTTLING ATTENDANT Assigned PCP 11/05/23 12/03/23 Mariel Galindo APRN BOTTLING ATTENDANT Assigned PCP 12/04/23 01/03/24 Deja Mendez PA-C [address] [place] [address] Assigned PCP 01/04/24 documented as of this encounter
--- OUTSIDE RECORDS SUMMARY | 2024-04-11 12:36 | XMS_ITS | Encounter Summary ---
Author Organization [facility] Address [address] [place] [address] Care Team Providers Care Supervisor Roving Name Role Phone No Ref-Primary, Physician Primary Care Provider MateoMariel MOLD SHEET CLEANER HOTEL AND DINING ROOM CASHIER Unavailable Un available Nadege Jones APRN HOTEL AND DINING ROOM CASHIER Unavailable Unavail able Mateo, Mariel Stout MOLD SHEET CLEANER HOTEL AND DINING ROOM CASHIER Unavailable Un available MateoMariel MOLD SHEET CLEANER HOTEL AND DINING ROOM CASHIER Unavailable Un available MateoMariel APRN HOTEL AND DINING ROOM CASHIER Unavailable Un available Deja Mendez PA-C Unavailable [phone] Encounter Details Date Type Department Care Team (Late st Contact Info) Description 01/25/2023 MyC Medical Advice [address] [address] Kimberly Montanez, [facility] Social History Tobacco Use Types Packs/Day Years Used Date Smoking Tobacco: Never Smokeless Tobacco: Never Alcohol Use Standard Drinks/Week Comments Yes 0 (1 standard drink = 0.6 oz pur e alcohol) wine occasionally PHQ-2 Answer Date Recorded PHQ-2 Total Score (Adult) - Positive if 3 or more points; Administer PHQ-9 if positive 2 11/24/2022 [place] Depression Scale Answer Date Recorded [place] Depression Score 16 12/04/2020 Last EPDS Self [...] Noted Time PHQ-9 Depression Total Score: 12 02/18/ 023 3:55 PM CDT documented as of this encounter Care Teams Supervisor Roving Relationship Specialty Start Date End Date No Ref-Primary, Physician PCP - General 06/09/22 06/02/23 Mariel Galindo APRN HOTEL AND DINING ROOM CASHIER Assigned PCP 01/16/23 04/23/23 Nadege Jones APRN HOTEL AND DINING ROOM CASHIER Assigned PCP 04/24/23 10/06/23 Mariel Galindo APRN HOTEL AND DINING ROOM CASHIER Assigned PCP 10/07/23 11/04/23 Mariel Galindo APRN HOTEL AND DINING ROOM CASHIER Assigned PCP 11/05/23 12/03/23 MateoMariel meng APRN HOTEL AND DINING ROOM CASHIER Assigned PCP 12/04/23 01/03/24 Deja Mendez PA-C [address] [place] [address] Assigned PCP 01/04/24 documented as of this encounter
--- OUTSIDE RECORDS SUMMARY | 2024-04-11 12:36 | XMS_ITS | Encounter Summary ---
Author Organization [facility] Address [address] [place] [address] Care Team Providers Care Rn Building Name Role Phone Mariel Galindo APRN, CNP Primary Care Provi adam Unavailable Mateo, Mariel Stout APRN ACCESSIBILITY LIFT TECHNICIAN Unavailable Un available Mateo, Mariel Stout APRN ACCESSIBILITY LIFT TECHNICIAN Unavailable Un available Samia Silverman MD Unavailable [phone] No Ref-Primary, Physician Primary Care Provider Mateo, Mariel Stout APRN ACCESSIBILITY LIFT TECHNICIAN Unavailable Un available Nadege Jones APRN ACCESSIBILITY LIFT TECHNICIAN Unavailable Unavail able Mateo, Mariel Stout APRN ACCESSIBILITY LIFT TECHNICIAN Unavailable Un available Nadege Jones APRN ACCESSIBILITY LIFT TECHNICIAN Unavailable Unavail able Mateo, Mariel Stout APRN ACCESSIBILITY LIFT TECHNICIAN Unavailable Un available Mateo, Mariel Stout APRN ACCESSIBILITY LIFT TECHNICIAN Unavailable Un available Mateo, Mariel Stout APRN ACCESSIBILITY LIFT TECHNICIAN Unavailable Un available Deja Mendez PA-C Unavailable [phone] Reason for Visit * Reason Comments Medication Refill FLUoxetine (PROZAC) 20 MG capsule Encounter Details Date Type Department Care Team (Late st Contact Info) Description 03/25/[address] [address] Mariel Galindo APRN CNP Medication Refill (FLUoxetine (PROZAC) 20 MG capsule) Social History Tobacco Use Types Packs/Day Years Used Date Smoking Tobacco: Never Alcohol Use Standard Drinks/Week Comments No 0 (1 standard drink = 0.6 oz pur e alcohol) not during Sex and Gender Information Value Date Recorded Sex Assigned at Female 04/07/2021 2:32 PM CDT Gender Identity Female 04/07/2021 2:32 PM CDT Sexual Orientation Straight 04/07/2021 2: 32 PM CDT documented as of this encounter Miscellaneous Notes * Telephone Encounter - Mariel Galindo APRN CNP - 03/26/2017 9:13 PM CDT CAn you let * Telephone Encounter - Oksana Rodríguez RN - 03/26/2017 3:59 PM CDT Per telephone visit 01/12/17, patient was to f/u in 6 weeks, no appt. Scheduled Routing refill request to provider for review/approval because: Patient needs to be seen because: Patient OD for f/u Letter sent Oksana Rodríguez RN * Telephone Encounter - Cele Cassidy - 03/25/2017 7:39 PM CDT Pending Prescriptions: Disp Refills FLUoxetine (PROZAC) 20 MG capsule [Pharma*30 cap*0 Sig: TAKE 1 CAPSULE BY MOUTH EVERY DAY Last Written Prescription Date: 01/12/2017 Last Fill Quantity: 60, # refills: 1 Last Office Visit with [facility] [place] care provider: 10/23/2016Mateo Last PHQ-9 score on record= PHQ-9 SCORE 01/12/2017 Total Score - Total Score 14 documented in this encounter Plan of Treatment Not on file documented as of this encounter Visit Diagnoses Diagnosis Moderate major depression (H)- Primary Major depressive disorder, single episode, moderate documented in this encounter Additional Health Concerns Assessment Noted Time PHQ-9 Depression Total Score: 14 017 7:04 AM CDT documented as of this encounter Care Teams Rn Building Relationship Specialty Start Date End Date Mariel Galindo APRN CNP PCP - General Nurse Practitioner 08/13/14 06/08/22 Mariel Galindo APRN CNP PCP - Assigned PCP 10/21/14 11/15/18 No Ref-Primary, Physician PCP - General 06/09/22 06/02/23 Mariel Galindo APRN ACCESSIBILITY LIFT TECHNICIAN Assigned PCP 10/21/14 04/10/22 Samia Silverman MD [address] [address] Assigned OBGYN Provider 08/04/20 Mariel Galindo APRN ACCESSIBILITY LIFT TECHNICIAN Assigned PCP 06/27/22 01/08/23 Nadege Jones APRN ACCESSIBILITY LIFT TECHNICIAN Assigned PCP 01/09/23 01/15/23 Mariel Galindo APRN ACCESSIBILITY LIFT TECHNICIAN Assigned PCP 01/16/23 04/23/23 Nadege Jones APRN ACCESSIBILITY LIFT TECHNICIAN Assigned PCP 04/24/23 10/06/23 Mariel Galindo APRN ACCESSIBILITY LIFT TECHNICIAN Assigned PCP 10/07/23 11/04/23 Mariel Galindo APRN ACCESSIBILITY LIFT TECHNICIAN Assigned PCP 11/05/23 12/03/23 Mariel Galindo APRN ACCESSIBILITY LIFT TECHNICIAN Assigned PCP 12/04/23 01/03/24 Deja Mendez PA-C [address] [place] [phone] Assigned PCP 01/04/24 documented as of this encounter
--- OUTSIDE RECORDS SUMMARY | 2024-04-11 12:36 | XMS_ITS | Encounter Summary ---
Author Organization [facility] Address [address] [place] [address]. [place] [address] Care Team Providers Care Crime Laboratory Analyst Name Role Phone Mariel Galindo APRN SENIOR PHP WEB DEVELOPER Primary Care Provi adam Unavailable Mateo, Mariel Stout APRN SENIOR PHP WEB DEVELOPER Unavailable Un available Samia Silverman MD Unavailable [phone] No Ref-Primary, Physician Primary Care Provider MateoMariel meng APRN SENIOR PHP WEB DEVELOPER Unavailable Un available Nadege Jones APRN SENIOR PHP WEB DEVELOPER Unavailable Unavail able Mateo, Mariel Stout APRN SENIOR PHP WEB DEVELOPER Unavailable Un available Nadege Jones APRN SENIOR PHP WEB DEVELOPER Unavailable Unavail able Mateo, Mariel Stout APRN SENIOR PHP WEB DEVELOPER Unavailable Un available Mateo, Mariel Stout APRN SENIOR PHP WEB DEVELOPER Unavailable Un available Mateo, Mariel Stout APRN SENIOR PHP WEB DEVELOPER Unavailable Un available Deja Mendez PA-C Unavailable [phone] Reason for Visit * Reason Onset Date Comments Refill Request 10/09/2021 Encounter Details Date Type Department Care Team (Late st Contact Info) Description 10/09/2021 MyC Refill [address] [address] Mariel Galindo APRN CNP Refill Request Social History Tobacco Use Types Packs/Day Years Used Date Smoking Tobacco: Never Smokeless Tobacco: Never Alcohol Use Standard Drinks/Week Comments Not Currently 0 (1 standard drink = 0.6 oz pur e alcohol) wine occasionally PHQ-2 Answer Date Recorded PHQ-2 Total Score (Adult) - Positive if 3 or more points; Administer PHQ-9 if positive 2 07/09/2021 [place] Depression Scale Answer Date Recorded [place] Depression Score 16 12/04/2020 Last EPDS Self Harm Result Not on file 12/04 Sex and Gender Information Value Date Recorded Sex Assigned at Female 04/07/2021 2:32 PM CDT Gender Identity Female 04/07/2021 2:32 PM CDT Sexual Orientation Straight 04/07/2021 2: 32 PM CDT documented as of this encounter Miscellaneous Notes * Telephone Encounter - Mariel Pedersen RN - 10/09/2021 8:54 AM CST Routing refill request to provider for review/approval because: Drug not on the [facility] refill protocol Mariel Pedersen RN on 10/09/2021 at 8:54 AM TIME FLEXIBLE CLERK documented in this encounter Plan of Treatment Not on file documented as of this encounter Visit Diagnoses Diagnosis ADHD (attention deficit hyperactivity disorder), combined type Attention deficit disorder with hyperactivity documented in this encounter Additional Health Concerns Assessment Noted Time PHQ-9 Depression Total Score: 12 021 7:02 AM CDT documented as of this encounter Care Teams Crime Laboratory Analyst Relationship Specialty Start Date End Date Mariel Galindo APRN SENIOR PHP WEB DEVELOPER PCP - General Nurse Practitioner 08/13/14 06/08/22 No Ref-Primary, Physician PCP - General 06/09/22 06/02/23 Mariel Galindo APRN SENIOR PHP WEB DEVELOPER Assigned PCP 10/21/14 04/10/22 Samia Silveramn MD [address] [address] Assigned OBGYN Provider 08/04/20 Mariel Galindo APRN SENIOR PHP WEB DEVELOPER Assigned PCP 06/27/22 01/08/23 Nadege Jones APRN SENIOR PHP WEB DEVELOPER Assigned PCP 01/09/23 01/15/23 Mateo, Mariel Stout FUSE MAKER SENIOR PHP WEB DEVELOPER Assigned PCP 01/16/23 04/23/23 Nadege Jones APRN SENIOR PHP WEB DEVELOPER Assigned PCP 04/24/23 10/06/23 Mateo, Mariel Stout APRN SENIOR PHP WEB DEVELOPER Assigned PCP 10/07/23 11/04/23 MateoMariel meng APRN SENIOR PHP WEB DEVELOPER Assigned PCP 11/05/23 12/03/23 Mateo, Mariel Stout APRN SENIOR PHP WEB DEVELOPER Assigned PCP 12/04/23 01/03/24 Deja Mendez PA-C [address] [place] [address] Assigned PCP 01/04/24 documented as of this encounter
--- OUTSIDE RECORDS SUMMARY | 2024-04-11 12:36 | XMS_ITS | Encounter Summary ---
Author Organization [facility] Address [address] [place] [address]. [place] [address] Care Team Providers Care Garbage Stoker Name Role Phone Mariel Galindo APRN, CNP Primary Care Provi adam Unavailable Mateo, Mariel Stout APRN EMT B Unavailable Un available Samia Silverman MD Unavailable [phone] No Ref-Primary, Physician Primary Care Provider MateoMariel meng APRN EMT B Unavailable Un available Nadege Jones APRN EMT B Unavailable Unavail able Mateo, Mariel Stout APRN EMT B Unavailable Un available Nadege Jones APRN EMT B Unavailable Unavail able Mateo, Mariel Stout APRN EMT B Unavailable Un available Mateo, Mariel Stout APRN EMT B Unavailable Un available MateoMariel APRN EMT B Unavailable Un available Deja Mendez PA-C Unavailable [phone] Reason for Visit * Reason Comments Medication Refill Encounter Details Date Type Department Care Team (Late st Contact Info) Description 02/02/[address] [address] Mariel Galindo APRN CNP Medication Refill Social History Tobacco Use Types Packs/Day Years Used Date Smoking Tobacco: Never Smokeless Tobacco: Never Alcohol Use Standard Drinks/Week Comments Not Currently 0 (1 standard drink = 0.6 oz pur e alcohol) wine occasionally PHQ-2 Answer Date Recorded PHQ-2 Score 3 12/23/2020 [place] Depression Scale Answer Date Recorded [place] Depression Score 16 12/04/2020 Last EPDS Self Harm Result Not on file 12/04 Sex and Gender Information Value Date Recorded Sex Assigned at Female 04/07/2021 2:32 PM CDT Gender Identity Female 04/07/2021 2:32 PM CDT Sexual Orientation Straight 04/07/2021 2: 32 PM CDT documented as of this encounter Miscellaneous Notes * Telephone Encounter - Marcela Benedict RN - 02/04/2021 2:19 PM CDT Routing refill request to provider for review/approval because: Elevated PHQ-9 Marcela Benedict RN [facility] -- Triage Nurse documented in this encounter Plan of Treatment Not on file documented as of this encounter Visit Diagnoses Diagnosis Moderate major depression (H) Major depressive disorder, single episode, moderate documented in this encounter Additional Health Concerns Assessment Noted Time PHQ-9 Depression Total Score: 17 021 1:27 PM CDT documented as of this encounter Care Teams Garbage Stoker Relationship Specialty Start Date End Date Mariel Galindo APRN CNP PCP - General Nurse Practitioner 08/13/14 06/08/22 No Ref-Primary, Physician PCP - General 06/09/22 06/02/23 Mariel Galindo APRN EMT B Assigned PCP 10/21/14 04/10/22 Samia Silverman MD [address] [place] [address] Assigned OBGYN Provider 08/04/20 Mariel Galindo APRN EMT B Assigned PCP 06/27/22 01/08/23 Nadege Jones APRN EMT B Assigned PCP 01/09/23 01/15/23 Mateo, Mariel Stout APRN EMT B Assigned PCP 01/16/23 04/23/23 Nadege Jones APRN EMT B Assigned PCP 04/24/23 10/06/23 Mateo, Mariel Stout APRN EMT B Assigned PCP 10/07/23 11/04/23 Mateo, Mariel Stout APRN EMT B Assigned PCP 11/05/23 12/03/23 Mateo, Mariel Stout APRN EMT B Assigned PCP 12/04/23 01/03/24 Deja Mendez PA-C [address] [place] [address] Assigned PCP 01/04/24 documented as of this encounter
--- OUTSIDE RECORDS SUMMARY | 2024-04-11 12:36 | XMS_ITS | Encounter Summary ---
Author Organization [facility] Address [address] [place] [address]. [place] [address] Care Team Providers Care In Home Baby Sitter Name Role Phone Mateo, Mariel Stout STORY WRITER WET SANDER Primary Care Provi adam Unavailable Mateo, Mariel Stout APRN WET SANDER Unavailable Un available No Ref-Primary, Physician Primary Care Provider Mateo, Mariel Stout STORY WRITER WET SANDER Unavailable Un available GillNadege ricci APRN WET SANDER Unavailable Unavail able Mateo, Mariel Stout APRN WET SANDER Unavailable Un available GillNadege ricci APRN WET SANDER Unavailable Unavail able Mateo, Mariel Stout APRN WET SANDER Unavailable Un available Mateo, Mariel Stout APRN WET SANDER Unavailable Un available Mateo, Mariel Stout APRN WET SANDER Unavailable Un available Deja Mendez PA-C Unavailable [phone] Encounter Details Date Type Department Care Team (Late st Contact Info) Description 02/10/2022 [facility] [place] [facility] [facility] [address] [place] [phone] Tamra Chavez PA-C [address] [place], [place] [id number] Social History Tobacco Use Types Packs/Day Years Used Date Smoking Tobacco: Never Smokeless Tobacco: Never Alcohol Use Standard Drinks/Week Comments Yes 0 (1 standard drink = 0.6 oz pur e alcohol) wine occasionally PHQ-2 Answer Date Recorded PHQ-2 Score 2 11/21/2021 [place] Depression Scale Answer Date Recorded [place] Depression Score 16 12/04/2020 Last EPDS Self Harm Result Not on file 12/04 Sex and Gender Information Value Date Recorded Sex Assigned at Female 04/07/2021 2:32 PM CDT Gender Identity Female 04/07/2021 2:32 PM CDT Sexual Orientation Straight 04/07/2021 2: 32 PM CDT COVID-19 Exposure Response Date Recorded In the last 10 days, have yo u been in contact with someone who was confirmed or suspected to have Coronavirus/COVID-19? No / Unsure 01/20/2022 1:12 PM CDT documented as of this encounter Plan of Treatment Not on file documented as of this encounter Visit Diagnoses Not on filedocumented in this encounter Additional Health Concerns Assessment Noted Time PHQ-9 Depression Total Score: 13 022 7:03 AM ARMED SECURITY GUARD documented as of this encounter Care Teams In Home Baby Sitter Relationship Specialty Start Date End Date Mariel Galindo APRN CNP PCP - General Nurse Practitioner 08/13/14 06/08/22 No Ref-Primary, Physician PCP - General 06/09/22 06/02/23 Mariel Galindo APRN CNP Assigned PCP 10/21/14 04/10/22 Mariel Galindo APRN CNP Assigned PCP 06/27/22 01/08/23 Nadege Jones APRN CNP Assigned PCP 01/09/23 01/15/23 Mariel Galindo APRN CNP Assigned PCP 01/16/23 04/23/23 Nadege Jones APRN CNP Assigned PCP 04/24/23 10/06/23 Mariel Galindo APRN CNP Assigned PCP 10/07/23 11/04/23 Mariel Galindo APRN CNP Assigned PCP 11/05/23 12/03/23 Mariel Galindo, STORY WRITER WET SANDER Assigned PCP 12/04/23 01/03/24 Deja Mendez PA-C [address] [place] [phone] Assigned PCP 01/04/24 documented as of this encounter
--- OUTSIDE RECORDS SUMMARY | 2024-04-11 12:36 | XMS_ITS | Encounter Summary ---
Author Organization [facility] Address [address] [place] [address] Care Team Providers Care Bricklayer Name Role Phone Mariel Galindo APRN WELDING MACHINE FEEDER Primary Care Provi adam Unavailable Mateo, Mariel Stout APRN WELDING MACHINE FEEDER Unavailable Un available Mateo, Mariel Stout APRN WELDING MACHINE FEEDER Unavailable Un available Samia Silverman MD Unavailable [phone] No Ref-Primary, Physician Primary Care Provider Mateo, Mariel Stout APRN WELDING MACHINE FEEDER Unavailable Un available Nadege Jones APRN WELDING MACHINE FEEDER Unavailable Unavail able Mateo, Mariel Stout APRN WELDING MACHINE FEEDER Unavailable Un available Nadege Jones APRN WELDING MACHINE FEEDER Unavailable Unavail able Mateo, Mariel Stout APRN WELDING MACHINE FEEDER Unavailable Un available Mateo, Mariel Stout APRN WELDING MACHINE FEEDER Unavailable Un available Mateo, Mariel Stout APRN WELDING MACHINE FEEDER Unavailable Un available Deja Mendez PA-C Unavailable [phone] Encounter Details Date Type Department Care Team (Latest Contact Info) Description 10/23/2016 Historic Results Social History Tobacco Use Types Packs/Day Years [...] Noted Time PHQ-9 Depression Total Score: 12 017 7:21 AM SUPERVISOR DETASSELING CREW documented as of this encounter Care Teams Bricklayer Relationship Specialty Start Date End Date Mariel Galindo APRN CNP PCP - General Nurse Practitioner 08/13/14 06/08/22 Mariel Galindo APRN CNP PCP - Assigned PCP 10/21/14 11/15/18 No Ref-Primary, Physician PCP - General 06/09/22 06/02/23 Mariel aGlindo APRN CNP Assigned PCP 10/21/14 04/10/22 Samia Silverman MD [address] [place] [address] Assigned OBGYN Provider 08/04/20 Mariel Galindo APRN CNP Assigned PCP 06/27/22 01/08/23 Nadege Joens APRN WELDING MACHINE FEEDER Assigned PCP 01/09/23 01/15/23 Mariel Galindo APRN CNP Assigned PCP 01/16/23 04/23/23 Nadege Jones APRN WELDING MACHINE FEEDER Assigned PCP 04/24/23 10/06/23 Mariel Galindo APRN CNP Assigned PCP 10/07/23 11/04/23 Mariel Galindo APRN CNP Assigned PCP 11/05/23 12/03/23 Mariel Galindo APRN CNP Assigned PCP 12/04/23 01/03/24 Deja Mendez PA-C [address] [place] [phone] Assigned PCP 01/04/24 documented as of this encounter
--- OUTSIDE RECORDS SUMMARY | 2024-04-11 12:36 | XMS_ITS | Encounter Summary ---
Author Organization [facility] Address [address] [place] [address] Care Team Providers Care Team Coordinator Name Role Phone No Ref-Primary, Physician Primary Care Provider MateoMariel APRN CROWN BUFFER Unavailable Un available Nadege Jones APRN CROWN BUFFER Unavailable Unavail able Mateo, Mariel Stout APRN CROWN BUFFER Unavailable Un available Mateo, Mariel Stout APRN CROWN BUFFER Unavailable Un available Mateo, Mariel Stout APRN CROWN BUFFER Unavailable Un available Deja Mendez PA-C Unavailable [phone] Reason for Visit * Reason Onset Date Comments Refill Request 02/18/2023 Encounter Details Date Type Department Care Team (Late st Contact Info) Description 02/18/2023 MyC Refill [facility] [address] [place] [phone] Tamra Chavez PA-C [address] [place], [place] [phone] Refill Request Social History Tobacco Use Types Packs/Day Years Used Date Smoking Tobacco: Never Smokeless Tobacco: Never Alcohol Use Standard Drinks/Week Comments Yes 0 (1 standard drink = 0.6 oz pur e alcohol) wine occasionally PHQ-2 Answer Date Recorded PHQ-2 Total Score (Adult) - Positive if 3 or more points; Administer PHQ-9 if positive 2 02/18/2023 [place] Depression Scale Answer Date Recorded [place] Depression Score 16 12/04/2020 Last EPDS Self [...] documented as of this encounter Care Teams Team Coordinator Relationship Specialty Start Date End Date No Ref-Primary, Physician PCP - General 06/09/22 06/02/23 Mariel Galindo APRN CROWN BUFFER Assigned PCP 01/16/23 04/23/23 Nadege Jones APRN CROWN BUFFER Assigned PCP 04/24/23 10/06/23 Mariel Galindo APRN CROWN BUFFER Assigned PCP 10/07/23 11/04/23 Mariel Galindo APRN CROWN BUFFER Assigned PCP 11/05/23 12/03/23 Mariel Galindo APRN CROWN BUFFER Assigned PCP 12/04/23 01/03/24 Deja Mendez PA-C [address] [place] [address] Assigned PCP 01/04/24 documented as of this encounter
--- OUTSIDE RECORDS SUMMARY | 2024-04-11 12:36 | XMS_ITS | Encounter Summary ---
Author Organization [facility] Address [address] [place] [address] Care Team Providers Care Scientist/Engineer Name Role Phone MateoMariel meng APRN SEE SUPERVISOR Primary Care Provi adam Unavailable Mateo, Mariel Stout APRN SEE SUPERVISOR Unavailable Un available Samia Silverman MD Unavailable [phone] No Ref-Primary, Physician Primary Care Provider Mateo, Mariel Stout APRN SEE SUPERVISOR Unavailable Un available Nadege Jones APRN SEE SUPERVISOR Unavailable Unavail able Mateo, Mariel Stout APRN SEE SUPERVISOR Unavailable Un available Nadege Jones APRN SEE SUPERVISOR Unavailable Unavail able Mateo, Mariel Stout ASSISTANT SERVICE MANAGER SEE SUPERVISOR Unavailable Un available Mateo, Mariel Stout APRN SEE SUPERVISOR Unavailable Un available MateoMariel APRN SEE SUPERVISOR Unavailable Un available Deja Mendez PA-C Unavailable Encounter Details Date Type Department Care Team (Latest Contact Info) Description 03/07/2020 Historic Results Social History Tobacco Use Types Packs/Day Years Used Date Smoking Tobacco: Never Smokeless Tobacco: Never Alcohol Use Standard Drinks/Week Comments Yes 0 (1 standard drink = 0.6 oz pur e alcohol) wine occasionally PHQ-2 Answer Date Recorded PHQ-2 Score 2 07/28/2019 Sex and Gender Information Value Date Recorded Sex Assigned at Female 04/07/2021 2:32 PM CDT Gender Identity Female 04/07/2021 2:32 PM CDT Sexual Orientation Straight 04/07/2021 2: 32 PM CDT COVID-19 Exposure Response Date Recorded In the last month, have you been in contact with someone who was confirmed or suspected to have Coronavirus / COVID-19? No / Unsure 03/07/2020 2:21 PM CDT documented as of this encounter Plan of Treatment Not on file documented as of this encounter Visit Diagnoses Not on filedocumented in this encounter Additional Health Concerns Assessment Noted Time PHQ-9 Depression Total Score: 10 020 2:27 PM CDT documented as of this encounter Care Teams Scientist/Engineer Relationship Specialty Start Date End Date Mariel Galindo APRN CNP PCP - General Nurse Practitioner 08/13/14 06/08/22 No Ref-Primary, Physician PCP - General 06/09/22 06/02/23 Mariel Galindo APRN CNP Assigned PCP 10/21/14 04/10/22 Samia Silverman MD [address] [place] [address] Assigned OBGYN Provider 08/04/20 Mariel Galindo APRN CNP Assigned PCP 06/27/22 01/08/23 Nadege Jones APRN SEE SUPERVISOR Assigned PCP 01/09/23 01/15/23 Mariel Galindo APRN CNP Assigned PCP 01/16/23 04/23/23 Nadege Jones APRN CNP Assigned PCP 04/24/23 10/06/23 Mariel Galindo APRN CNP Assigned PCP 10/07/23 11/04/23 Mariel Galindo APRN CNP Assigned PCP 11/05/23 12/03/23 Mariel Galindo APRN CNP Assigned PCP 12/04/23 01/03/24 Deja Mendez PA-C [address] [place] [phone] Assigned PCP 01/04/24 documented as of this encounter
--- OUTSIDE RECORDS SUMMARY | 2024-04-11 12:36 | XMS_ITS | Data Portability ---
Author Organization [facility] - AVIATION SAFETY TECHNICIAN, [id number] Address [address] [place] [address] Assessment No assessment recorded. Plan of Treatment Reminders Order Date Submit Date Provider Last Modified By Organization Details Last Modified Time Details Appointments None recorded. Lab hemoglobin (Hb), fingerstick , blood 2020 021 eamon [id number]_[email or web address] _[place] , [address] [facility], [address], [place], [address], 17:16:48 unlisted lab - group B strep by PCR (OB patients) 2020 [facility], [address] [place] [address], [address], 12:42:00 Referral None recorded. Procedures None recorded. Surgeries None recorded. Imaging US, obstetric, biophysical profile 2020 021 ahuepfel [id number] le_[place], [address], [address], [place], [address], 18:52:27 US, obstetric, biophysical profile 2020 021 [place] [id number] [facility], [address], [address], [place], [address], 14:23:32 Medication Orders None recorded. Patient TargetsNo targets recorded. Patient InstructionsNo instructions recorded. Reason for Referral Maternal & Medicine Re ferral for Advanced maternal age Level 2 sono for AMA pt declines [id number] BMI 26 Referring Physician: Mervin Lyman, AVIATION SAFETY TECHNICIAN, Encounter Date: 06/24/2020 Results Created Date Observation Date Name Description Value Unit Range Abnormal Flag LastModifiedBy Organization Detail LastModifiedTime 11/25/2020 hemog lobin (Hb), finge rstic k, blood fingerstick hemoglobin 9.5 g/dL 12.0-1 5.0 Not Available [id number] le_[place] [address] [facility] [address], [place], [address], 11/25/2020 16:56:31 11/26/19 21 11/25/2020 strep tococ cus group B DNA group B strep by PCR No Group B Strept ococcu s detect ed by PCR. no group B strept ococcu s detect ed by PCR. Not Available [facility] Lab [address], [place], [address], 11/27/2020 12:42:00 11/04/19 21 US, obste tric, follo w-up No observ ation record ed. [email or web address] [address], [place], [address], 11/04/2020 15:03:03 11/27/19 21 US, obste tric, bioph ysica l profi le No observ ation record ed. [email or web address] [address], [place], [address], 12/02/2020 10:38:41 12/04/19 21 US, obste tric, bioph ysica l profi le No observ ation record ed. [place] [address], [place], [address], 12/04/2020 10:55:17 Result Notes None recorded. Problems Name Status Onset Date Resolution Date Notes Provider Name and Address Organization Details Recorded Time Completed 020 12/26/2020 Anupama tristan, [place] - [facility] AVIATION SAFETY TECHNICIAN 1 12:47:15 Advanced maternal age Completed level II Anupama tristan, [place] AVIATION SAFETY TECHNICIAN 1 12:47:10 Depression screening Completed 021 PHQ9: 16, GAD7: 19 @ 28 week visit, disc, declines meds. Desires to restart Anupama tristan, [place] - [place] [facility] AVIATION SAFETY TECHNICIAN 1 12:47:10 Problem Notes None recorded. Procedures Surgical History Date Name Laterality Status Provider Name and Address Organization Details Recorded Time 0 Date of Last Pap Smear completed Inés tristan, [place] - Prem[facility] AVIATION SAFETY TECHNICIAN 2020 17:26:50 colposcopy of cervix completed Not Available [facility] 04/22/2020 01:04:46 Imaging Results Imaging Date Name Status LastModified by Organiz ation Details LastModified Time 11/04/2020 US, obstetric, follow-up completed [email or web address] [address], [place], [address], 11/04/2020 15:03:03 11/26/2020 US, obstetric, biophysical profile completed [email or web address] [address], [place], [address], 12/02/2020 10:38:41 12/03/2020 US, obstetric, biophysical profile completed [email or web address] [address], [place], [address], 12/04/2020 10:55:17 Procedure Notes None recorded. Medical Equipment None Reported. Allergies No known drug allergies Medications Name Sig Start Date Stop Date Status Note LastModified by Organization Details LastModified Time dextroamphetami ne-amphetamine 10 mg tablet 05/14 completed Not Available Not Available Not Available Adderall XR 20 mg capsule,extende d release 05/14 completed Not Available Not Available Not Available Adderall XR 30 mg capsule,extende d release 05/14 completed Not Available Not Available Not Available clindamycin 1 % topical gel 05/14 completed Not Available Not Available Not Available levothyroxine 50 mcg tablet active Not Available Not Availabl e Not Available fluoxetine 20 mg capsule 05/14 completed Not Available Not Available Not Available Vitamin active Not Available Not Available Not Available Vitals Date Recorded Body height Body mass index (BMI) Body weight Systolic blood pressure Diastolic blood pressure Provider Name and Address Organization Details Last Updated DateTime 11/25/2020 165.1 cm 32.8 kg/m2 77792.13 3838 g 112 mm[Hg] 72 mm[Hg] Deya Adams (TERMED) [facility] AVIATION SAFETY TECHNICIAN 16:56:19 Date Recorded Body height Body mass index (BMI) Systolic blood pressure Diastolic blood pressure Provider Name and Address Organization Details Last Updated DateTime 11/26/2020 165.1 cm 33.3 kg/m2 102 mm[Hg] 70 mm[Hg] Yen Ann [facility] AVIATION SAFETY TECHNICIAN 11/26/2020 14:38:15 Date Recorded Body weight Provider Name an d Address Organization Details Last Updated DateTime 11/26/2020 15514.031578 [place] [address] [facility],[address], [place], [address], [facility] AVIATION SAFETY TECHNICIAN 11/28/2020 10:14:32 Date Recorded Body weight Systolic blood pressure Diastolic blood pressure Provider Name and Address Organization Details Last Updated DateTime 12/03/2020 61361.474 g 110 mm[Hg] 70 mm[Hg] Norma Cabrera [facility] AVIATION SAFETY TECHNICIAN 12/03/2020 12:25:27 Social History Question Answer Notes LastModified by Organizat ion Details LastModified Time Tobacco Smoking Status Never Smoker Tobacco *Status: Never *Note: 11/18/2016 - Not Available [facility] 04/22/2020 13:56:27 What Is Your Level Of Alcohol Consumption? None Alcohol *Status: Former *Qty: 2dr/wk Information not available 04/22/2020 What Is Your Level Of Caffeine Consumption? Moderate Caffeine *Status: Current Every Day *Qty: 1c/day Information not available 04/22/2020 History Of Domestic Violence No Denies All Domestic Violence [email or web address] Information not available 04/22/2020 Marital Status Information not available 04/22/2020 Sex: Unknown Functional Status None recorded. Mental Status None recorded. Family History Nothing Reported. Medical History Condition Response Neurology- Memory Loss/Dementia N Neurology- Stroke/TIA N Rheumatology- Fibromyalgia/Chronic Pain N Dermatology-Acne N Cancer- Genetic Screening N Endocrinology- Vitamin Deficiency N Endocrinology-Other N Urology-Other N Cardiology- Atrial fib/atrial flutter N ID- Usual childhood diseases- Chicken Po x N Rheumatology- Autoimmune Disease N Nephrology-Renal Disease N Neurology- Seizures/Epilepsy N Cardiology- Heart Attack N Ortho-Fractures N Neurology- Neuropathy N Endocrinology- Prolactinoma N Urology- Recurrent Urinary Tract Infecti ons N Pulmonary- Seasonal Allergies/Allergic R hinitis N Psych- PMS/PMDD N Pulmonary-Other N Pulmonary- Lung Disease N Endocrinology- Glucose Intolerance/Insul in Resistance N Psych- Anxiety Disorder N Hematology- Anemia N GI- Reflux/Ulcers N Cancer- Skin N GI- Irritable Bowel Syndrome N Cardiology- Heart Disease N GI- Colon Polyps N Ortho-Other N Endocrinology- Osteopenia N Psych-Other N ID- MRSA N Endocrinology- Elevated Prolactin N ID-Other N Psych- Eating Disorder N Ortho- Arthritis N Urology- Urinary Incontinence N Pulmonary- Asthma N Urology- Hematuria (Blood in Urine) N Pulmonary- Sleep Apnea N Neurology- Dementia N Vascular-Aneurysm N Urology- Interstitial Cystitis N Endocrinology- Hypothyroidism N Eyes-other N Rheumatology- Arthritis N GI- Hemorrhoids N ID- Rheumatic Fever N Neurology-Other N Hematology- Blood Clotting Disorder/Fact or V Leiden N Ortho- Degenerative Joint Disease N Cardiology-Other N Hematology- Bleeding Disorder N Endocrinology- Osteoporosis N Psych- Depression N Hematology-Other N Dermatology-Eczema/Psoriasis N Dermatology-Other N ID- Tuberculosis/Positive PPD N Ortho-Chronic Back Pain N ID- HIV N Cancer- Ovary N Cardiac- Mitral Valve Prolapse N Cardiology- High Cholesterol N ID- Chicken Pox/Shingles N Cardiology- Heart Arrhythmia N Urology- Kidney or Bladder Problems N Psych- Mental Disorder N Endocrinology- Hyperthyroidism N Endocrinology- Thyroid Problems N Cancer- Breast N Psych- ADD N GI- Liver Disease/Hepatitis N Weight Management/Obesity N Cancer- Colon N ENT- Hearing Loss N Cancer- Vulvar N Hematology- Blood Transfusion N Cancer- Vaginal N GI-Other N Neurology- Headaches/Migraines N Endocrinology- Diabetes N Cancer- Cervical N Pulmonary- COPD/Emphysema N GI- Vitamin Deficiency N Endocrinology- History of Gestational Di abetes N GI- Crohn's/Ulcerative Colitis N Psych- Bipolar Disease N Cardiology- High Blood Pressure N ENT- Seasonal Allergies/Allergic Rhiniti s N Cancer- Lung N Cancer- Endometrial/Uterine N Eyes- Glaucoma N ENT-Other N Eyes- Vision Loss/Macular Degeneration N Rheumatology-Other N Cardiac- Aneurysm N Urology- Kidney Infection N Cardiology- Heart Murmur/Mitral Valve Pr olapse N Hematology- DVT/Pulmonary Embolism N Urology- Stones N Cancer-Other N GI- Gallbladder Disease N Gynecological History Statement/Question Response Date of Last Pap Smear 05/14/2020 Date of LMP 03/06/2020 Obstetrics History GPAL:G 7 P 5 0 1 5 Type Value Multiple Births 0 Full Term 5 Induced 0 Spontaneous 1 Premature 0 Living 5 Ectopics 0 Total 7 Immunizations Vaccine Type Date Status Provider Name a mi Address Organization Details Recorded Time Tdap 05/13/2015 completed Not Available [facility] 01:10:22 Tdap 07/23/2016 completed Not Available [facility] 01:10:23 Tdap 10/22/2020 [place] [address] [facility],[address], [place], [address], [facility] AVIATION SAFETY TECHNICIAN 10/22/2020 18:06:11 Past Encounters Encounter ID Performer Location Encounter Start Date Encounter Closed Date Diagnosis/Indication Diagnosis SNOMED-CT Code [id number] MERVIN LYMAN DO [id number] [facility] [address] [facility], [address] [place] [address] 05/14/2020 14:44:49 05/14/2020 15:30:23 Past history of miscarriage [id number] [id number] MERVIN LYMAN DO [id number] [facility] [address] [facility], [address] [place] [address] 05/14/2020 15:08:40 05/15/2020 08:36:36 Gynecologic examination [id number] [id number] Hypothyroidism 81220067 Advanced m aternal age 603180393 [id number] MERVIN LYMAN, DO [id number] [facility] [address] [facility], [address] [place] [address] 06/24/2020 17:13:25 06/25/2020 08:00:24 [id number] MERVIN LYMAN, DO [id number] [facility] [address] [facility], [address] [place] [address] 08/20/2020 17:13:53 08/20/2020 17:41:37 Hypothyroidism in 575566803 [id number] ALIDA NOONAN ZION [id number] [facility] [address] [facility], [address] [address] 09/23/2020 12:18:42 09/23/2020 12:47:09 Gestation period, 28 weeks 45595160 screening 7904 22265 [id number] MERVIN LYMAN, [id number] [facility] [address] [facility], [address] [address] 10/08/2020 16:55:23 10/09/2020 09:02:08 [id number] MERVIN LYMAN, [id number] [facility] [address] [facility], [address] [address] 10/22/2020 16:57:54 10/22/2020 17:50:54 Routine care 682965244 [id number] JOSE SEPULVEDA MD [id number] [facility] [address] [facility], [address] [place] [address] 11/04/2020 10:32:08 11/04/2020 11:18:33 Multigravida of advanced maternal age 864667084 [id number] MERVIN LYMAN, DO [id number] [facility] [address] [facility], [address] [place] [id number] 11/04/2020 10:52:39 11/04/2020 11:52:35 [id number] MERVIN LYMAN, DO [id number] [facility] [address] [facility], [address] [place] [phone] 11/25/2020 16:46:50 11/25/2020 17:15:57 [id number] OCTAVIO SAGASTUME MD [id number] [facility] [address] [facility], [address] [address] 11/26/2020 12:00:12 11/26/2020 12:30:01 movement activity - finding [id number] MERVIN LYMAN, [id number] [facility] [address] [facility], [address] [address] 11/26/2020 14:35:25 11/26/2020 15:39:41 [id number] SAMMI RIOS MD [id number] [facility] [address] [facility], [address] [address] 12/03/2020 12:06:38 12/03/2020 12:53:29 Reduced movement 415851531 [id number] MERVIN LYMAN, [id number] [facility] [address] [facility], [address] [address] 12/03/2020 12:18:59 12/03/2020 13:26:24 Health Concerns Section Related Observation LastModified by Organization Detai ls LastModified Time None Recorded Concern Status LastModified by Organization Details LastModified Time None Recorded Advance Directives Directive None Recorded Payers Encounter Date Sequence Insurance Name Policy Number Policy Doss Covered Member ID Doss Member ID Guarantor Name 11/25/2020 1 [facility] [id number] Mayito Valenzuela [id number] Madeline Valenzuela 11/26/2020 1 [facility] [id number] Mayito Valenzuela [id number] Madeline Valenzuela 11/26/2020 1 [facility] [id number] Mayito Valenzuela [id number] Madeline Valenzuela 12/03/2020 1 [facility] [id number] Mayito Valenzuela [id number] Madeline Valenzuela 12/03/2020 1 [facility] [id number] Mayito Valenzuela [id number] Madeline Valenzuela OBGyn Episode Ob Episode Information Episode Created Date Number of Fetuses Patient Bloodtype Patient rh Status Prepregnancy Weight lbs Domestic Partner Domestic Partner Phone Father Name Graphic Technician Status 05/14/20 20 1 A Positive CLOSED Fetus Data First Name Last Name Admitted to NICU Weight (g) Sex Living Outcome Pediatric Complications Fetus ID Race Codes Race Delivery Type 3288.54 2 M true Full Term 6501 Problems Problem Notes Problem Name Start Date End Date Resolution Snomed Code Not e Advanced maternal age [id number] level II Depression screening 09/23/2020 28894477 6 PHQ9: 16, GAD7: 19 @ 28 week visit, disc, declines meds. Desires to restart Prashant Calculation Initial Prashant Date Initial Exam Date Initial Exam Provider Initial Ultrasound Date Last Menstrual Period Date Ultra Sound Weeks Gestation 12/21/2020 05/14/2020 03/06/2020 0 Eighteen To Twenty Week Prashant Update Ultra Sound Date Fundal Height At Umbil Quickening Date Ultra Sound Latest Weeks Gestation Final Prashant Confirmed By Final Prashant Confirmed Date Final Prashant Date Ultra Sound Latest Days Gestation 0 [email or web address] 06/24/2020 12/22/19 21 0 Pre- Flowsheet Flowsheet Date 05/14/2020 Fritz Score Blood Edema Fundus Height Fundus Units Glucose Ketones Leukocytes Nitrite Labor Signs Protein Cervic Dilation Cervic Effacement Cervic Station Type Weight in lbs BP Diastolic BP Location Tested BP Systolic BP Type Fetus Heart Rate Present Fetus Movement Comments Flowsheet Date 05/14/2020 Fritz Score Blood Edema Fundus Height Fundus Units Glucose Ketones Leukocytes Nitrite Labor Signs Protein Cervic Dilation Cervic Effacement Cervic Station none none neg Type Weight in lbs BP Diastolic BP Location Tested BP Systolic BP Type 70 110 Fetus Heart Rate Present A Present Fetus Movement Comments NOB visit Flowsheet Date 06/24/2020 Fritz Score Blood Edema Fundus Height Fundus Units Glucose Ketones Leukocytes Nitrite Labor Signs Protein Cervic Dilation Cervic Effacement Cervic Station none none neg Type Weight in lbs BP Diastolic BP Location Tested BP Systolic BP Type 70 R arm 104 sitting Fetus Heart Rate Present A Present Fetus Movement A Yes Comments feeling well, has declined M T21. will do LII US. RTC in 4 wks for regular visit. Flowsheet Date 08/20/2020 Fritz Score Blood Edema Fundus Height Fundus Units Glucose Ketones Leukocytes Nitrite Labor Signs Protein Cervic Dilation Cervic Effacement Cervic Station 24 cm none Backpain neg Type Weight in lbs BP Diastolic BP Location Tested BP Systolic BP Type 70 110 Fetus Heart Rate Present A Present Fetus Movement A Yes Comments LII US was normal, post plac enta not low lying, 3vc, boy!. is having left back and pelvic pain. sacral reseat done, with a little improvement. will recheck at next visit and send to PT if still having a hard time. JJ Flowsheet Date 09/23/2020 Fritz Score Blood Edema Fundus Height Fundus Units Glucose Ketones Leukocytes Nitrite Labor Signs Protein Cervic Dilation Cervic Effacement Cervic Station 29 cm none none neg Type Weight in lbs BP Diastolic BP Location Tested BP Systolic BP Type 74 R arm 102 sitting Fetus Heart Rate Present A Present Fetus Movement A Yes Comments 1. backpain slightly improve d x1 week after visit, offered PT, pt declines at this time. 2. PHQ9/GAD7: , discussed meds and therapy. Resources given. Was on meds pre-preg, declines. Would like to start after delivery. 3. Gct/Hgb today. 4. +FM, declines VB, LOF, ctxns. lw Flowsheet Date 10/08/2020 Fritz Score Blood Edema Fundus Height Fundus Units Glucose Ketones Leukocytes Nitrite Labor Signs Protein Cervic Dilation Cervic Effacement Cervic Station 30 cm none none neg Type Weight in lbs BP Diastolic BP Location Tested BP Systolic BP Type 70 110 Fetus Heart Rate Present A Present Fetus Movement A Yes Comments feeling well, is having lots of BH contractions. some back and sacral pain. discussed IOL at 39 wks due to fast labors. will consider. hx of big babies but does well.JJ Flowsheet Date 10/22/2020 Fritz Score Blood Edema Fundus Height Fundus Units Glucose Ketones Leukocytes Nitrite Labor Signs Protein Cervic Dilation Cervic Effacement Cervic Station 34 cm none [place] neg 0cm 10% -3 Type Weight in lbs BP Diastolic BP Location Tested BP Systolic BP Type 66 R arm 102 sitting Fetus Heart Rate Present A Present Fetus Movement A Yes Comments Tdap given today.PS Feeling lots of pressure all the time, had a glob of mucus come out the other day. Still having BH ctxs but not painful. S>D will get US to eval next time. Cvx examined for reassurance. JJ Flowsheet Date 11/04/2020 Fritz Score Blood Edema Fundus Height Fundus Units Glucose Ketones Leukocytes Nitrite Labor Signs Protein Cervic Dilation Cervic Effacement Cervic Station Type Weight in lbs BP Diastolic BP Location Tested BP Systolic BP Type Fetus Heart Rate Present Fetus Movement Comments Flowsheet Date 11/04/2020 Fritz Score Blood Edema Fundus Height Fundus Units Glucose Ketones Leukocytes Nitrite Labor Signs Protein Cervic Dilation Cervic Effacement Cervic Station none none neg Type Weight in lbs BP Diastolic BP Location Tested BP Systolic BP Type 66 R arm 104 sitting Fetus Heart Rate Present A Present Fetus Movement A Yes Comments pressure is better, not as f requent. Growth today for S>D 67%tile 5lbs. feels better about that. HC 87%tile. RTC in 2 wks and then weekly. JJ Flowsheet Date 11/25/2020 Fritz Score Blood Edema Fundus Height Fundus Units Glucose Ketones Leukocytes Nitrite Labor Signs Protein Cervic Dilation Cervic Effacement Cervic Station 36 cm none [place] neg Type Weight in lbs BP Diastolic BP Location Tested BP Systolic BP Type 72 112 Fetus Heart Rate Present A Present Fetus Movement A Yes Comments feeling OK. has had a few pa inful contractions but no pattern. she has noticed decreased amounts of movement, baby will move a lot a few times per day but then wont move much at other times. will get BPP tomorrow. EFW 6.5 lbs. JJ Flowsheet Date 11/26/2020 Fritz Score Blood Edema Fundus Height Fundus Units Glucose Ketones Leukocytes Nitrite Labor Signs Protein Cervic Dilation Cervic Effacement Cervic Station Type Weight in lbs BP Diastolic BP Location Tested BP Systolic BP Type Fetus Heart Rate Present Fetus Movement Comments Flowsheet Date 11/26/2020 Fritz Score Blood Edema Fundus Height Fundus Units Glucose Ketones Leukocytes Nitrite Labor Signs Protein Cervic Dilation Cervic Effacement Cervic Station none Type Weight in lbs BP Diastolic BP Location Tested BP Systolic BP Type 70 102 Fetus Heart Rate Present A Present Fetus Movement A Yes Comments BPP normal today 04/20 with no rmal BOBO, discussed kick counts and continuing weekly BPPs due to decreased FM. consider IOL at 39 wks or sooner if indicated. Flowsheet Date 12/03/2020 Fritz Score Blood Edema Fundus Height Fundus Units Glucose Ketones Leukocytes Nitrite Labor Signs Protein Cervic Dilation Cervic Effacement Cervic Station Type Weight in lbs BP Diastolic BP Location Tested BP Systolic BP Type Fetus Heart Rate Present Fetus Movement Comments Flowsheet Date 12/03/2020 Fritz Score Blood Edema Fundus Height Fundus Units Glucose Ketones Leukocytes Nitrite Labor Signs Protein Cervic Dilation Cervic Effacement Cervic Station none none trace 2cm 70% -3 Type Weight in lbs BP Diastolic BP Location Tested BP Systolic BP Type 70 R arm 110 sitting Fetus Heart Rate Present A Present Fetus Movement A Yes Comments Feeling well, ready for labo r. precautions discussed. BPP 04/20 normal BOBO. EFW 7lbs JJ Menstrual History Last Menstrual Date Menses Monthly On Bcp Conception Prior Menses Frequency Hcg Plus Date Menarche Onset Age 0603/06/2020 Genetic Screening And Infection History Question Response Note Any Other Genetic History false Artemio Disease false Other Infection History false Thalassemia (Haitian, Gambian, Mediterranean, Or Background): MCV < 80 false Patient Or Baby's Father Had A Child With Defects Not Listed Above false Patient's Age Will Be 35 Years Or Older At Estim ated Date of Delivery false Recurrent Loss, Or A Stillbirth false Maternal Metabolic Disorder (eg, Type 1 Diabetes , PKU) false Muscular Dystrophy false History Of STD, Gonorrhea, Chlamydia, HPV, Syphi lis false History of Hepatitis false Prior GBS-infected child false If Yes, Was Person Tested For Fragile X? false If Yes, Agent(s) And Strength/Dosage false Rash Or Viral Illness Since Last Menstrual Perio d false Muscular Dystrophy false Cystic Fibrosis false Mental Retardation/Autism false Live With Someone With TB Or Exposed To TB false Thalassemia (Haitian, Gambian, Mediterranean, Or Background): MCV < 80 false Sickle Cell Disease Or Trait () false Intellectual Disability/Autism false Patient Or Partner Has History Of Genital Herpes false History of HIV false Harry-Sachs (eg, Jehovah'S Witness, Cajun, Turkish-Runnels) f alse Neural Tube Defect (Meningomyelocele, Spina Bifi da, Or Anencephaly) false Hemophilia Or Other Blood Disorders false Bianca's Chorea false Congenital Heart Defect false Other Inherited Genetic Or Chromosomal Disorder false Down Syndrome false Sickle Cell Disease Or Trait () false Congenital Heart Defect false Bianca's Chorea false Medications (including Suppl ements, Vitamins, Herbs, OTC Drugs), Illicit/Recreational Drugs, Alcohol false Cystic Fibrosis false Down Syndrome false Delivery Information Delivery Date Delivery Type Labor Anesthesia Weeks Gestation Incision Type Labor Labor Length Hrs Delivered By Post Complications Tubal Sterilization Discharge Date Comments 1 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 Mervin Lyman DO Discharge Information Feeding Method Contraceptive Method Maternal HG B and HCT Levels Ob Episode Information Episode Created Date Number of Fetuses Patient Bloodtype Patient rh Status Prepregnancy Weight lbs Domestic Partner Domestic Partner Phone Father Name Graphic Technician Status 05/14/20 20 1 CLOSED Fetus Data First Name Last Name Admitted to NICU Weight (g) Sex Living Outcome Pediatric Complications Fetus ID Race Codes Race Delivery Type 3316.66 4704 M Full Term 6518 Prashant Calculation Initial Prashant Date Initial Exam Date Initial Exam Provider Initial Ultrasound Date Last Menstrual Period Date Ultra Sound Weeks Gestation 0 Eighteen To Twenty Week Prashant Update Ultra Sound Date Fundal Height At Umbil Quickening Date Ultra Sound Latest Weeks Gestation Final Prashant Confirmed By Final Prashant Confirmed Date Final Prashant Date Ultra Sound Latest Days Gestation 0 0 Menstrual History Last Menstrual Date Menses Monthly On Bcp Conception Prior Menses Frequency Hcg Plus Date Menarche Onset Age Delivery Information Delivery Date Delivery Type Labor Anesthesia Weeks Gestation Incision Type Labor Labor Length Hrs Delivered By Post Complications Tubal Sterilization Discharge Date Comments 8 None 39 Discharge Information Feeding Method Contraceptive Method Maternal HG B and HCT Levels Ob Episode Information Episode Created Date Number of Fetuses Patient Bloodtype Patient rh Status Prepregnancy Weight lbs Domestic Partner Domestic Partner Phone Father Name Graphic Technician Status 05/14/20 20 1 CLOSED Fetus Data First Name Last Name Admitted to NICU Weight (g) Sex Living Outcome Pediatric Complications Fetus ID Race Codes Race Delivery Type 4507.34 3704 M Full Term 6520 Prashant Calculation Initial Prashant Date Initial Exam Date Initial Exam Provider Initial Ultrasound Date Last Menstrual Period Date Ultra Sound Weeks Gestation 0 Eighteen To Twenty Week Prashant Update Ultra Sound Date Fundal Height At Umbil Quickening Date Ultra Sound Latest Weeks Gestation Final Prashant Confirmed By Final Prashant Confirmed Date Final Prashant Date Ultra Sound Latest Days Gestation 0 0 Menstrual History Last Menstrual Date Menses Monthly On Bcp Conception Prior Menses Frequency Hcg Plus Date Menarche Onset Age Delivery Information Delivery Date Delivery Type Labor Anesthesia Weeks Gestation Incision Type Labor Labor Length Hrs Delivered By Post Complications Tubal Sterilization Discharge Date Comments 7 None 41 15 Discharge Information Feeding Method Contraceptive Method Maternal HG B and HCT Levels Ob Episode Information Episode Created Date Number of Fetuses Patient Bloodtype Patient rh Status Prepregnancy Weight lbs Domestic Partner Domestic Partner Phone Father Name Graphic Technician Status 05/14/20 20 1 CLOSED Fetus Data First Name Last Name Admitted to NICU Weight (g) Sex Living Outcome Pediatric Complications Fetus ID Race Codes Race Delivery Type 3883.65 4704 F Full Term 6522 Prashant Calculation Initial Prashant Date Initial Exam Date Initial Exam Provider Initial Ultrasound Date Last Menstrual Period Date Ultra Sound Weeks Gestation 0 Eighteen To Twenty Week Prashant Update Ultra Sound Date Fundal Height At Umbil Quickening Date Ultra Sound Latest Weeks Gestation Final Prashant Confirmed By Final Prashant Confirmed Date Final Prashant Date Ultra Sound Latest Days Gestation 0 0 Menstrual History Last Menstrual Date Menses Monthly On Bcp Conception Prior Menses Frequency Hcg Plus Date Menarche Onset Age Delivery Information Delivery Date Delivery Type Labor Anesthesia Weeks Gestation Incision Type Labor Labor Length Hrs Delivered By Post Complications Tubal Sterilization Discharge Date Comments 5 Regional-Ep idural 40 Discharge Information Feeding Method Contraceptive Method Maternal HG B and HCT Levels Ob Episode Information Episode Created Date Number of Fetuses Patient Bloodtype Patient rh Status Prepregnancy Weight lbs Domestic Partner Domestic Partner Phone Father Name Graphic Technician Status 05/14/20 20 1 CLOSED Fetus Data First Name Last Name Admitted to NICU Weight (g) Sex Living Outcome Pediatric Complications Fetus ID Race Codes Race Delivery Type 3628.73 6 M Full Term 6526 Prashant Calculation Initial Prashant Date Initial Exam Date Initial Exam Provider Initial Ultrasound Date Last Menstrual Period Date Ultra Sound Weeks Gestation 0 Eighteen To Twenty Week Prashant Update Ultra Sound Date Fundal Height At Umbil Quickening Date Ultra Sound Latest Weeks Gestation Final Prashant Confirmed By Final Prashant Confirmed Date Final Prashant Date Ultra Sound Latest Days Gestation 0 0 Menstrual History Last Menstrual Date Menses Monthly On Bcp Conception Prior Menses Frequency Hcg Plus Date Menarche Onset Age Delivery Information Delivery Date Delivery Type Labor Anesthesia Weeks Gestation Incision Type Labor Labor Length Hrs Delivered By Post Complications Tubal Sterilization Discharge Date Comments 7 Regional- idural 40 Discharge Information Feeding Method Contraceptive Method Maternal HG B and HCT Levels
--- OUTSIDE RECORDS SUMMARY | 2024-04-11 12:36 | XMS_ITS | Encounter Summary ---
Author Organization [place] Address [address] [place] [address]. [place] [address] Care Team Providers Care Crayon Grader Name Role Phone Mateo, Mariel Stout MANAGER BOOK REGIONAL ENGINEER Primary Care Provi adam Unavailable Mateo, Mariel Stout MANAGER BOOK REGIONAL ENGINEER Unavailable Un available Samia Silverman MD Unavailable [phone] No Ref-Primary, Physician Primary Care Provider Mateo, Mariel Stout APRN REGIONAL ENGINEER Unavailable Un available Nadege Jones APRN REGIONAL ENGINEER Unavailable Unavail able Mateo, Mariel Stout APRN REGIONAL ENGINEER Unavailable Un available Nadege Jones APRN REGIONAL ENGINEER Unavailable Unavail able Mateo, Mariel Stout MANAGER BOOK REGIONAL ENGINEER Unavailable Un available Mateo, Mariel Stout APRN REGIONAL ENGINEER Unavailable Un available Mateo, Mariel Stout APRN REGIONAL ENGINEER Unavailable Un available Deja Mendez PA-C Unavailable [phone] Encounter Details Date Type Department Care Team (Late st Contact Info) Description [place]16/[place] [facility] [place] [address] [address] Sheyla Cespedes CMA Social History Tobacco Use Types Packs/Day Years Used Date Smoking Tobacco: Never Smokeless Tobacco: Never Alcohol Use Standard Drinks/Week Comments Yes 0 (1 standard drink = 0.6 oz pur e alcohol) wine occasionally PHQ-2 Answer Date Recorded PHQ-2 Score 2 07/28/2019 Comments Yes Sex and Gender Information Value Date Recorded [...] documented as of this encounter Care Teams Crayon Grader Relationship Specialty Start Date End Date Mariel Galindo APRN CNP PCP - General Nurse Practitioner 08/13/14 06/08/22 No Ref-Primary, Physician PCP - General 06/09/22 06/02/23 Mariel Galindo APRN CNP Assigned PCP 10/21/14 04/10/22 Samia Silverman MD [address] [place] [address] Assigned OBGYN Provider 08/04/20 Mariel Galindo APRN CNP Assigned PCP 06/27/22 01/08/23 Nadege Jones APRN CNP Assigned PCP 01/09/23 01/15/23 Mariel Galindo APRN CNP Assigned PCP 01/16/23 04/23/23 Nadege Jones APRN CNP Assigned PCP 04/24/23 10/06/23 Mariel Galindo APRN CNP Assigned PCP 10/07/23 11/04/23 Mariel Galindo APRN CNP Assigned PCP 11/05/23 12/03/23 Mariel Galindo APRN CNP Assigned PCP 12/04/23 01/03/24 Deja Mendez PA-C [address] [place] [phone] Assigned PCP 01/04/24 documented as of this encounter
--- OUTSIDE RECORDS SUMMARY | 2024-04-11 12:36 | XMS_ITS | Encounter Summary ---
Author Organization [place] Address [address] [place] [address]. [place] [address] Care Team Providers Care Electrical Repairer Name Role Phone Mateo, Mariel Stout CRYSTALLIZER OPERATOR POUNCING LATHE OPERATOR Primary Care Provi adam Unavailable Mateo, Mariel Stout CRYSTALLIZER OPERATOR POUNCING LATHE OPERATOR Unavailable Un available Samia Silverman MD Unavailable [phone] No Ref-Primary, Physician Primary Care Provider Mateo, Mariel Stout APRN POUNCING LATHE OPERATOR Unavailable Un available Nadege Jones APRN POUNCING LATHE OPERATOR Unavailable Unavail able Mateo, Mariel Stout APRN POUNCING LATHE OPERATOR Unavailable Un available Nadege Jones APRN POUNCING LATHE OPERATOR Unavailable Unavail able Mateo, Mariel Stout CRYSTALLIZER OPERATOR POUNCING LATHE OPERATOR Unavailable Un available Mateo, Mariel Stout APRN POUNCING LATHE OPERATOR Unavailable Un available Mateo, Mariel Stout CRYSTALLIZER OPERATOR POUNCING LATHE OPERATOR Unavailable Un available Deja Mendez PA-C Unavailable [phone] Encounter Details Date Type Department Care Team (Late st Contact Info) Description 03/03/2021 [facility] [place] Medical Advice [facility] [place] [address] [place] [address] Sheyla Cespedes, MAHI Social History Tobacco Use Types Packs/Day Years Used Date Smoking Tobacco: Never Smokeless Tobacco: Never Alcohol Use Standard Drinks/Week Comments Not Currently 0 (1 standard drink = 0.6 oz pur e alcohol) wine occasionally PHQ-2 Answer Date Recorded PHQ-2 Total Score (Adult) - Positive if 3 or more points; Administer PHQ-9 if positive 0 03/06/2021 [place] Depression Scale Answer Date Recorded [place] Depression Score 16 12/04/2020 Last EPDS Self [...] documented as of this encounter Care Teams Electrical Repairer Relationship Specialty Start Date End Date Mariel Galindo APRN CNP PCP - General Nurse Practitioner 08/13/14 06/08/22 No Ref-Primary, Physician PCP - General 06/09/22 06/02/23 Mariel Galindo APRN CNP Assigned PCP 10/21/14 04/10/22 Samia Silverman MD [address] [place] [address] Assigned OBGYN Provider 08/04/20 Mariel Galindo APRN POUNCING LATHE OPERATOR Assigned PCP 06/27/22 01/08/23 Nadege Jones APRN CNP Assigned PCP 01/09/23 01/15/23 Mariel Galindo APRN CNP Assigned PCP 01/16/23 04/23/23 Nadege Jones APRN CNP Assigned PCP 04/24/23 10/06/23 Mariel Galindo APRN CNP Assigned PCP 10/07/23 11/04/23 Mariel Galindo APRN POUNCING LATHE OPERATOR Assigned PCP 11/05/23 12/03/23 Mariel Galindo APRN POUNCING LATHE OPERATOR Assigned PCP 12/04/23 01/03/24 Deja Mendez PA-C [address] [place] [phone] Assigned PCP 01/04/24 documented as of this encounter
--- OUTSIDE RECORDS SUMMARY | 2024-04-11 12:36 | XMS_ITS | Encounter Summary ---
Author Organization [place] Address [address] [place] [address]. [place] [address] Care Team Providers Care Lift Supervisor Name Role Phone Mariel Galindo APRN RENAL CASE MANAGER Primary Care Provi adam Unavailable Mateo, Mariel Stout APRN RENAL CASE MANAGER Unavailable Un available Samia Silverman MD Unavailable [phone] No Ref-Primary, Physician Primary Care Provider Mateo, Mariel Stout APRN RENAL CASE MANAGER Unavailable Un available Nadege Jones APRN RENAL CASE MANAGER Unavailable Unavail able Mateo, Mariel Stout APRN RENAL CASE MANAGER Unavailable Un available Nadege Jones APRN RENAL CASE MANAGER Unavailable Unavail able Mateo, Mariel Stout APRN RENAL CASE MANAGER Unavailable Un available Mateo, Mariel Stout APRN RENAL CASE MANAGER Unavailable Un available Mateo, Mariel Stout APRN RENAL CASE MANAGER Unavailable Un available Deja Mendez PA-C Unavailable [phone] Reason for Visit * Reason Onset Date Comments Refill Request 06/20/2019 Adderrall Encounter Details Date Type Department Care Team (Late st Contact Info) Description 06/20/2019 My[facility] Refill [address] [phone] Mariel Galindo APRN CNP Refill Request (Adderrall) Social History Tobacco Use Types Packs/Day Years Used Date Smoking Tobacco: Never Smokeless Tobacco: Never Alcohol Use Standard Drinks/Week Comments No 0 (1 standard drink = 0.6 oz pur e alcohol) not during PHQ-2 Answer Date Recorded PHQ-2 Score 1 10/24/2018 Sex and Gender Information Value Date Recorded Sex Assigned at Female 04/07/2021 2:32 PM CDT Gender Identity Female 04/07/2021 2:32 PM CDT Sexual Orientation Straight 04/07/2021 2: 32 PM CDT documented as of this encounter Miscellaneous Notes * Telephone Encounter - Mariel Galindo APRN CNP - 06/21/2019 9:13 PM CDT Will refill at appointment on 06/26. Mariel Galindo CNP * Telephone Encounter - Joyce Whitley RN - 06/21/2019 4:59 PM CDT Disp Refills Start End [place] amphetamine-dextroamphetamine (ADDERALL) 10 MG tablet 60 tablet 0 05/07/2019 No Sig - Route: Take 1 tablet (10 mg) by mouth 2 times daily - Oral Sent to pharmacy as: amphetamine-dextroamphetamine (ADDERALL) 10 MG tablet Class: E-Prescribe Earliest Fill Date: 05/07/2019 Disp Refills Start End [place] amphetamine-dextroamphetamine (ADDERALL XR) 30 MG 24 hr capsule 30 capsule 0 05/07/2019 No Sig - Route: Take 1 capsule (30 mg) by mouth daily - Oral Sent to pharmacy as: amphetamine-dextroamphetamine (ADDERALL XR) 30 MG 24 hr capsule Class: E-Prescribe Routing refill request to provider for review/approval because: Drug not on the G refill protocol [employer] INSTRUCTOR: 1.31.19 Annual Controlled substance agreement: 12.31.16 Annual drug screenin07.11.19 Michelle Whitley RN * Telephone Encounter - Milagro Mcguire - 06/21/2019 10:30 AM CDT Controlled Substance Refill Request for Adderrall 30 mg Problem List Complete: No PROVIDER TO CONSIDER COMPLETION OF PROBLEM LIST AND OVERVIEW/CONTROLLED SUBSTANCE AGREEMENT Last Written Prescription Date: 05/07/2019 Last Fill Quantity: 30, # refills: 0 THE MOST RECENT OFFICE VISIT MUST BE WITHIN THE PAST 3 MONTHS. AT LEAST ONE FACE TO FACE VISIT MUSTOCCUR EVERY 6 MONTHS. ADDITIONAL VISITS CAN BE VIRTUAL. (THIS STATEMENT SHOULD BE DELETED.) Last Office Visit with [facility] primary care provider: 10/24/2018-Mariel Galindo Future Office visit: Controlled substance agreement: Encounter-Level CSA - 01/01/2016: Controlled Substance Agreement - Scan on 01/13/2016 9:17 AM: CONTROLLED SUBSTANCE AGREEMENT Patient-Level CSA: There are no patient-level csa. Last Urine Drug Screen: Pain Drug SCR UR W RPTD Meds Date Value Ref Range Status 07/11/2018 FINAL Final Comment: (Note) TOXASSURE COMP DRUG ANALYSIS,UR Test Result Flag Units Drug Present Amphetamine 2606 ng/mg creat Amphetamine is available as a schedule II prescription drug. Fluoxetine PRESENT Norfluoxetine PRESENT Norfluoxetine is an expected metabolite of fluoxetine. Test Result Flag Units Ref Range Creatinine 118 mg/dL >=20 Declared Medications: Medication list was not provided. For clinical consultation, please call . Analysis performed by [facility] [employer] [place] [address] , No results found for: COMDAT, No results found for: THC13, PCP13, COC13, MAMP13, OPI13, AMP13, BZO13, TCA13, MTD13, BAR13, OXY13, PPX13, BUP13 Processing: Send Electronically to pharmacy [email or web address] [employer] S[employer]OL INSTRUCTOR checked in past 3 months? No, route to RN documented in this encounter Plan of Treatment Not on file documented as of this encounter Visit Diagnoses Diagnosis ADHD (attention deficit hyperactivity disorder), combined type Attention deficit disorder with hyperactivity documented in this encounter Additional Health Concerns Assessment Noted Time PHQ-9 Depression Total Score: 13 019 7:06 AM TIE CARRIER documented as of this encounter Care Teams Lift Supervisor Relationship Specialty Start Date End Date Mariel Galindo APRN RENAL CASE MANAGER PCP - General Nurse Practitioner 08/13/14 06/08/22 No Ref-Primary, Physician PCP - General 06/09/22 06/02/23 Mariel Galindo APRN RENAL CASE MANAGER Assigned PCP 10/21/14 04/10/22 Samia Silverman MD [address] [place] [address] Assigned OBGYN Provider 08/04/20 Mariel Galinod APRN RENAL CASE MANAGER Assigned PCP 06/27/22 01/08/23 Nadege Jones APRN RENAL CASE MANAGER Assigned PCP 01/09/23 01/15/23 Mariel Galindo APRN RENAL CASE MANAGER Assigned PCP 01/16/23 04/23/23 Nadege Jones APRN RENAL CASE MANAGER Assigned PCP 04/24/23 10/06/23 Mariel Galindo APRN RENAL CASE MANAGER Assigned PCP 10/07/23 11/04/23 Mariel Galindo APRN RENAL CASE MANAGER Assigned PCP 11/05/23 12/03/23 Mariel Galindo APRN RENAL CASE MANAGER Assigned PCP 12/04/23 01/03/24 Deja Mendez PA-C [address] [facility] [phone] Assigned PCP 01/04/24 documented as of this encounter
--- OUTSIDE RECORDS SUMMARY | 2024-04-11 12:36 | XMS_ITS | Encounter Summary ---
Author Organization [facility] Address [address] [place] [address]. [place] [address] Care Team Providers Care Poison Information Specialist Name Role Phone Mariel Galindo APRN APPLICATION DEVELOPER MANAGER Primary Care Provi adam Unavailable Mateo, Mariel Stout APRN APPLICATION DEVELOPER MANAGER Unavailable Un available Samia Silverman MD Unavailable [phone] No Ref-Primary, Physician Primary Care Provider MateoMariel meng APRN APPLICATION DEVELOPER MANAGER Unavailable Un available Nadege Jones APRN APPLICATION DEVELOPER MANAGER Unavailable Unavail able Mateo, Mariel Stout APRN APPLICATION DEVELOPER MANAGER Unavailable Un available Nadege Jones APRN APPLICATION DEVELOPER MANAGER Unavailable Unavail able Mateo, Mariel Stout APRN APPLICATION DEVELOPER MANAGER Unavailable Un available Mateo, Mariel Stout APRN APPLICATION DEVELOPER MANAGER Unavailable Un available Mateo, Mariel Stout APRN APPLICATION DEVELOPER MANAGER Unavailable Un available Deja Mendez PA-C Unavailable [phone] Reason for Visit * Reason Onset Date Comments Refill Request 09/14/2019 Encounter Details Date Type Department Care Team (Late st Contact Info) Description 09/14/2019 My[facility] Refill [address] [address] Mariel Galindo APRN APPLICATION DEVELOPER MANAGER Refill Request Social History Tobacco Use Types [...] as of this encounter Visit Diagnoses Diagnosis Hypothyroidism, unspecified type Moderate major depression (H) Major depressive disorder, single episode, moderate Anxiety Anxiety state, unspecified ADHD (attention deficit hyperactivity disorder), combined type Attention deficit disorder with hyperactivity documented in this encounter Additional Health Concerns Assessment Noted Time PHQ-9 Depression Total Score: 9 07/28/20 19 8:28 AM DROPPER TANK STORAGE documented as of this encounter Care Teams Poison Information Specialist Relationship Specialty Start Date End Date Mariel Galindo APRN CNP PCP - General Nurse Practitioner 08/13/14 06/08/22 No Ref-Primary, Physician PCP - General 06/09/22 06/02/23 Mariel Galindo APRN CNP Assigned PCP 10/21/14 04/10/22 Samia Silverman MD [address] [place] [address] Assigned OBGYN Provider 08/04/20 Mariel Galindo APRN APPLICATION DEVELOPER MANAGER Assigned PCP 06/27/22 01/08/23 Nadege Jones APRN APPLICATION DEVELOPER MANAGER Assigned PCP 01/09/23 01/15/23 Mariel Galindo APRN CNP Assigned PCP 01/16/23 04/23/23 Nadege Jones APRN APPLICATION DEVELOPER MANAGER Assigned PCP 04/24/23 10/06/23 Mariel Galindo APRN CNP Assigned PCP 10/07/23 11/04/23 Mariel Galindo APRN APPLICATION DEVELOPER MANAGER Assigned PCP 11/05/23 12/03/23 Mariel Galindo APRN APPLICATION DEVELOPER MANAGER Assigned PCP 12/04/23 01/03/24 Deja Mendez PA-C [address] [place] [phone] Assigned PCP 01/04/24 documented as of this encounter
--- OUTSIDE RECORDS SUMMARY | 2024-04-11 12:36 | XMS_ITS | Encounter Summary ---
Author Organization [facility] Address [address] [place] [address]. [place] [address] Care Team Providers Care Lower School Spanish Teacher Name Role Phone Mariel Galindo APRN, CNP Primary Care Provi adam Unavailable Mateo, Mariel Stout APRN PUMPER GAUGER APPRENTICE Unavailable Un available Samia Silverman MD Unavailable [phone] No Ref-Primary, Physician Primary Care Provider MateoMariel meng APRN PUMPER GAUGER APPRENTICE Unavailable Un available Nadege Jones APRN PUMPER GAUGER APPRENTICE Unavailable Unavail able Mateo, Mariel Stout APRN PUMPER GAUGER APPRENTICE Unavailable Un available Nadege Jones APRN PUMPER GAUGER APPRENTICE Unavailable Unavail able Mateo, Mariel Stout APRN PUMPER GAUGER APPRENTICE Unavailable Un available Mateo, Mariel Stout APRN PUMPER GAUGER APPRENTICE Unavailable Un available Mateo, Mariel Stout APRN PUMPER GAUGER APPRENTICE Unavailable Un available Deja Mendez PA-C Unavailable [phone] Reason for Visit * Reason Onset Date Comments Refill Request 06/06/2021 Encounter Details Date Type Department Care Team (Late st Contact Info) Description 06/06/2021 [facility] [address] [place] [phone] Mariel Galindo APRN CNP Refill Request Social History Tobacco Use Types Packs/Day Years Used Date Smoking Tobacco: Never Smokeless Tobacco: Never Alcohol Use Standard Drinks/Week Comments Not Currently 0 (1 standard drink = 0.6 oz pur e alcohol) wine occasionally PHQ-2 Answer Date Recorded PHQ-2 Total Score (Adult) - Positive if 3 or more points; Administer PHQ-9 if positive 0 04/07/2021 [place] Depression Scale Answer Date Recorded [place] Depression Score 16 12/04/2020 Last EPDS Self Harm Result Not on file 12/04 Sex and Gender Information Value Date Recorded Sex Assigned at Female 04/07/2021 2:32 PM CDT Gender Identity Female 04/07/2021 2:32 PM CDT Sexual Orientation Straight 04/07/2021 2: 32 PM CDT documented as of this encounter Miscellaneous Notes * Telephone Encounter - Asia Stewart RN - 06/09/2021 5:17 PM CDT Routing refill request to provider for review/approval because: Drug not on the [facility] refill protocol Asia Stewart RN, BSN Message handled by CLINIC NURSE. documented in this encounter Plan of Treatment Not on file documented as of this encounter Visit Diagnoses Diagnosis ADHD (attention deficit hyperactivity disorder), combined type Attention deficit disorder with hyperactivity documented in this encounter Additional Health Concerns Assessment Noted Time PHQ-9 Depression Total Score: 8 04/08/20 21 7:03 AM CDT documented as of this encounter Care Teams Lower School Spanish Teacher Relationship Specialty Start Date End Date Mariel Galindo APRN PUMPER GAUGER APPRENTICE PCP - General Nurse Practitioner 08/13/14 06/08/22 No Ref-Primary, Physician PCP - General 06/09/22 06/02/23 Mariel Galindo APRN PUMPER GAUGER APPRENTICE Assigned PCP 10/21/14 04/10/22 Samia Silverman MD [address] [address] Assigned OBGYN Provider 08/04/20 Mariel Galindo APRN PUMPER GAUGER APPRENTICE Assigned PCP 06/27/22 01/08/23 Nadege Jones APRN PUMPER GAUGER APPRENTICE Assigned PCP 01/09/23 01/15/23 Mateo, Mariel Stout APRN PUMPER GAUGER APPRENTICE Assigned PCP 01/16/23 04/23/23 Nadege Jones APRN PUMPER GAUGER APPRENTICE Assigned PCP 04/24/23 10/06/23 Mateo, Mariel Stout APRN PUMPER GAUGER APPRENTICE Assigned PCP 10/07/23 11/04/23 Mateo, Mariel Stout APRN PUMPER GAUGER APPRENTICE Assigned PCP 11/05/23 12/03/23 Mateo, Mariel Stout APRN PUMPER GAUGER APPRENTICE Assigned PCP 12/04/23 01/03/24 Deja Mendez PA-C [address] [place] [phone] Assigned PCP 01/04/24 documented as of this encounter
--- OUTSIDE RECORDS SUMMARY | 2024-04-11 12:36 | XMS_ITS | Encounter Summary ---
Author Organization [place] Address [address] [place] [address]. [place] [address] Care Team Providers Care Rand Butting Machine Operator Name Role Phone Mateo, Mariel Stout APRN BOOM WORKER Primary Care Provi adam Unavailable Mateo, Mariel Stout MEDICAL REVIEW COORDINATOR BOOM WORKER Unavailable Un available Samia Silverman MD Unavailable [phone] No Ref-Primary, Physician Primary Care Provider Mateo, Mariel Stout APRN BOOM WORKER Unavailable Un available Nadege Jones APRN BOOM WORKER Unavailable Unavail able Mateo, Mariel Stout APRN BOOM WORKER Unavailable Un available Nadege oJnes APRN BOOM WORKER Unavailable Unavail able Mateo, Mariel Stout MEDICAL REVIEW COORDINATOR BOOM WORKER Unavailable Un available Mateo, Mariel Stout APRN BOOM WORKER Unavailable Un available Mateo, Mariel Stout APRN BOOM WORKER Unavailable Un available Deja Mendez PA-C Unavailable Encounter Details Date Type Department Care Team (Late st Contact Info) Description 09/27/2019 [facility] [address] [place] [address] Mimi Sun Social History Tobacco Use Types Packs/Day Years [...] Total Score: 9 07/28/20 19 8:28 AM YARD RIGGER documented as of this encounter Care Teams Rand Butting Machine Operator Relationship Specialty Start Date End Date Mariel Galindo APRN CNP PCP - General Nurse Practitioner 08/13/14 06/08/22 No Ref-Primary, Physician PCP - General 06/09/22 06/02/23 Mariel Galindo APRN CNP Assigned PCP 10/21/14 04/10/22 Samia Silverman MD [address] [place] [address] Assigned OBGYN Provider 08/04/20 Mariel Galindo APRN CNP Assigned PCP 06/27/22 01/08/23 Nadege Jones APRN BOOM WORKER Assigned PCP 01/09/23 01/15/23 Mariel Galindo APRN BOOM WORKER Assigned PCP 01/16/23 04/23/23 Nadege Jones APRN BOOM WORKER Assigned PCP 04/24/23 10/06/23 Mariel Galindo APRN CNP Assigned PCP 10/07/23 11/04/23 Mariel Galindo APRN CNP Assigned PCP 11/05/23 12/03/23 Mariel Galindo APRN CNP Assigned PCP 12/04/23 01/03/24 Deja Mendez PA-C [address] [place] [phone] Assigned PCP 01/04/24 documented as of this encounter
--- NOTE | 2024-04-11 12:45 | CRLHL7_ITS ---
For Patients: As a result of the Century Cures Act, medical imaging exams and procedure reports are released immediately into your electronic medical record. You may view this report before your referring provider. If you have questions, please contact your health care provider. INDICATION: First trimester scan, establish dates. COMPARISON: None. TECHNIQUE: Real-time ridley-scale imaging of the pelvis was performed. FINDINGS: Sonographic imaging demonstrates a single living intrauterine gestation. The embryo demonstrates a regular cardiac rate measuring 180 beats per minute. The embryo`s crown-rump length measurement of 4.3 cm corresponds to a gestational age of 11 weeks 1 day with a sonographic due date of 10/30/2024. Yolk sac measures 5.4 millimeters. There are no gross abnormalities noted within the embryo at this early state of development. The gestational sac has a normal appearance. There is no evidence of a perigestational hemorrhage. The amount of fluid within the sac appears appropriate for gestational age. The cervix is closed. The myometrium appears normal. Corpus luteal cyst left ovary. Right ovary not visualized. There are no suspicious fluid collections noted in the cul-de-sac. IMPRESSION: Single living intrauterine with sonographic gestational age 11 weeks 1 day and sonographic due date of 10/30/2024. Dictated by Heber Call MD @ 04/13/2024 6:59:42 AM (Electronically Signed)
== END 2024-04-11 12:32 | disposition home or self-care (01) ==
LOC: US 12:33
PROVIDERS: Visit Provider Midwife
DX: Z34.91 Encounter for supervision of normal pregnancy, unspecified, first trimester (principal); Z3A.11 11 weeks gestation of pregnancy
CPT/HCPCS: 76801

== ENCOUNTER 2024-04-11 14:04 | Outpatient (CLI) | payer OTHER, SELFPAY ==
--- OUTSIDE RECORDS SUMMARY | 2024-04-11 14:11 | XMS_ITS | Encounter Summary ---
Author Organization [place] Address [address] [place] [address] Care Team Providers Care Automation Tech Name Role Phone No Ref-Primary, Physician Primary Care Provider MateoMariel CENTRAL SERVICES TECH SOUND EQUIPMENT MECHANIC Unavailable Un available Nadege Jones APRN SOUND EQUIPMENT MECHANIC Unavailable Unavail able Mateo, Mariel Stout CENTRAL SERVICES TECH SOUND EQUIPMENT MECHANIC Unavailable Un available MateoMariel CENTRAL SERVICES TECH SOUND EQUIPMENT MECHANIC Unavailable Un available MateoMariel APRN SOUND EQUIPMENT MECHANIC Unavailable Un available Deja Mendez PA-C Unavailable [phone] Encounter Details Date Type Department Care Team (Late st Contact Info) Description 01/25/2023 MyC Medical Advice [address] [address] Kimberly Montanez, [facility] Social History Tobacco Use Types Packs/Day Years Used Date Smoking Tobacco: Never Smokeless Tobacco: Never Alcohol Use Standard Drinks/Week Comments Yes 0 (1 standard drink = 0.6 oz pur e alcohol) wine occasionally PHQ-2 Answer Date Recorded PHQ-2 Total Score (Adult) - Positive if 3 or more points; Administer PHQ-9 if positive 2 11/24/2022 [place] Depression Scale Answer Date Recorded [place] Depression Score 16 12/04/2020 Last EPDS Self [...] documented as of this encounter Care Teams Automation Tech Relationship Specialty Start Date End Date No Ref-Primary, Physician PCP - General 06/09/22 06/02/23 Mariel Galindo APRN SOUND EQUIPMENT MECHANIC Assigned PCP 01/16/23 04/23/23 Nadege Jones APRN SOUND EQUIPMENT MECHANIC Assigned PCP 04/24/23 10/06/23 Mariel Galindo APRN SOUND EQUIPMENT MECHANIC Assigned PCP 10/07/23 11/04/23 Mariel Galindo APRN SOUND EQUIPMENT MECHANIC Assigned PCP 11/05/23 12/03/23 MateoMariel meng APRN SOUND EQUIPMENT MECHANIC Assigned PCP 12/04/23 01/03/24 Deja Mendez PA-C [address] [place] [address] Assigned PCP 01/04/24 documented as of this encounter
--- OUTSIDE RECORDS SUMMARY | 2024-04-11 14:11 | XMS_ITS | Encounter Summary ---
Author Organization [place] Address [address] [place] [address]. [place] [address] Care Team Providers Care Spring Tester Name Role Phone No Ref-Primary, Physician Primary Care Provider MateoMariel CHEESEMAKER NURSE INFORMATICIST Unavailable Un available Nadege Jones APRN NURSE INFORMATICIST Unavailable Unavail able MateoMariel CHEESEMAKER NURSE INFORMATICIST Unavailable Un available MateoMariel CHEESEMAKER NURSE INFORMATICIST Unavailable Un available MateoMariel APRN NURSE INFORMATICIST Unavailable Un available Deja Mendez PA-C Unavailable Encounter Details Date Type Department Care Team (Late st Contact Info) Description 04/16/2023 MyC Medical Advice [address] [address] iKmberly Montanez, [facility] Social History Tobacco Use Types Packs/Day [...] declined 04/20/2023 How often do you attend muslim or shinto serv ices? Never 04/20/2023 Do you belong to any clubs o r organizations such as muslim groups, unions, fraternal or athletic groups, or [...] Answer Date Recorded PHQ-2 Score 4 04/20/2023 [facility] of Occupat ional [facility] - Occupational Stress Questionnaire Answer Date [...] place to sleep or slept in a custodial (including now)? No 04/20/2023 [place] Depression Scale Answer Date Recorded [place] Depression Score 16 12/04/2020 Last EPDS Self [...] documented as of this encounter Care Teams Spring Tester Relationship Specialty Start Date End Date No Ref-Primary, Physician PCP - General 06/09/22 06/02/23 Mariel Galindo APRN CNP Assigned PCP 01/16/23 04/23/23 Nadege Jones APRN NURSE INFORMATICIST Assigned PCP 04/24/23 10/06/23 Mariel Galindo APRN CNP Assigned PCP 10/07/23 11/04/23 Mariel Galindo APRN NURSE INFORMATICIST Assigned PCP 11/05/23 12/03/23 Mariel Galindo APRN CNP Assigned PCP 12/04/23 01/03/24 Deja Mendez PA-C [address] [place] [phone] Assigned PCP 01/04/24 documented as of this encounter
--- OUTSIDE RECORDS SUMMARY | 2024-04-11 14:11 | XMS_ITS | Referral Summary ---
Author Organization [place] Address [address] [place] [address] Care Team Providers Care Linux Network Administrator Name Role Phone Deja Mendez PA-C Unavailable [phone] Encounters Date Type Department Care Team Description 02/11/[address] [address] Deja Mendez PA-C Refill Request [...] 07/28/19 NIL, +HR HPV, not 16/18. Plan [place] 06/11/20 Patient is lost to pap tracking [...] Neuropsych evaluation for ADD completed: UNKNOWN Last [employer] website verification: 06/28/19 [email or web address] Last Assessment & Plan: Patient is followed by MARIEL GALINDO for ongoing prescription of stimulants. All refills should be approved by this provider, or covering partner. Medication(s): amphetamine-dextroamphetamine (ADDERALL XR) 30 MG per 24 hr capsule. Maximum quantity per month: 30 Clinic visit frequency required: Q 6 months Controlled substance agreement on file: No Neuropsych evaluation for ADD completed: No Last [employer] website verification: done on 05.10.17 [email or web address] CARDIOVASCULAR SCREENING; LDL GOAL LESS THAN 160 [...] declined 04/20/2023 How often do you attend pentecostal or yazdanism serv ices? Never 04/20/2023 Do you belong to any clubs o r organizations such as pentecostal groups, unions, fraternal or athletic groups, or [...] Answer Date Recorded PHQ-2 Score 3 12/14/2023 [facility] of Occupat ional Health - Occupational Stress [...] place to sleep or slept in a half-way (including now)? No 04/20/2023 [place] Depression Scale Answer Date Recorded [place] Depression Score 16 12/04/2020 Last EPDS Self [...] TYPES DNA CERVICAL Routine 11/21/2021 8:09 AM QUALITY CONTROL DIRECTOR Cervical cancer screening GYNECOLOGIC CYTOLOGY Routine 11/21/2021 8:09 AM QUALITY CONTROL DIRECTOR Cervical cancer screening HIV ANTIGEN ANTIBODY COMBO [...] newborns, infants, and children. Nadege Jones APRN FINGER GRIP MACHINE OPERATOR LAB - BLOOD ORDE ELEUTERIO UM SPECIALTY CORE/PROT/ENDO UM Specialty Core/Prot/Endo [address] [facility], [address] [place] [address], [facility] [phone] * Basic metabolic panel (Ca, Cl, CO2, [...] LAB - BLOOD ORDBrandi MCCLELLAN U LABORATORY [facility] Core Lab 500 [facility], [address] [address], [facility] [phone] * TSH WITH FREE T4 REFLEX (11/24/2022 11:06 AM CDT) TSH 1.31 0.30 - 4.20 uIU/mL 11/24/2022 5:51 PM CDT [facility]ATORY Blood BLOOD SPECIMEN / Unknown Venipuncture / Unknown 11/24/2022 11:06 AM CDT 11/24/2022 11:10 AM CDT Nadege Jones W[facility] LAB - BLOOD PATRICIA HARRISONPEARL Performing Organization Address City/[facility]/ZIP Co de Phone Number LABORATORY [facility] Core Lab [address] [facility], [address] [address], [facility] [phone] * Pap Screen with HPV - recommended age 30 - 65 years (11/21/2021 8:09 AM QUALITY CONTROL DIRECTOR) Interpretation Negative for Intraepithelial Lesion or Malignancy [...] component of this testing was completed at [facility] 11/25/2021 9:24 AM CDT SPECIALTY LABS Brushing CERVIX UTERI STRUCTURE / Unknown 11/21/2021 8:09 AM QUALITY CONTROL DIRECTOR 11/21/2021 8:24 AM QUALITY CONTROL DIRECTOR Mariel Galindo APRN FINGER GRIP MACHINE OPERATOR LAB - [facility] Specialty Lab [address] [facility], [address] [place] [phone], [facility] [phone] * HPV High Risk Types DNA Cervical (11/21/2021 8:09 AM QUALITY CONTROL DIRECTOR) Other HR HPV Negative Negative 11/26/2021 2:10 PM CDT [facility]ST[facility] HPV16 DNA Negative Negative 11/26/2021 2:10 PM CDT [facility] DIAGNOST[facility] HPV18 DNA Negative Negative 11/26/2021 2:10 PM CDT [facility] DIAGNOSTICS FINAL DIAGNOSIS This patient's sample is negative for HPV DNA. This test was developed and its performance characteristics determined by the [facility], Molecular Diagnostics Laboratory. It has not been [...] Non-blood Collection / Unknown 11/21/2021 8:09 AM QUALITY CONTROL DIRECTOR 11/25/2021 3:59 PM CDT Mariel Argelia Haase PULP PILER FINGER GRIP MACHINE OPERATOR LAB - BLOOD ORDERABLES UM MOLECULAR DIAGNOSTICS UM Molecular Diagnostics [address], [address] [address], [facility] [phone] * HIV Antigen Antibody Combo (05/20/2016) HIV Antigen Antibody Combo Negative Blood specimen (specimen) Patient Reported LAB - BLOOD ORDERABL ES from Last 3 Months or Most Recently Relevant to Health Maintenance Care Teams Linux Network Administrator Relationship Specialty Start Date End Date Deja Mendez PA-C [address] [place] [address] Assigned PCP 01/04/24
--- OUTSIDE RECORDS SUMMARY | 2024-04-11 14:11 | XMS_ITS | Encounter Summary ---
Author Organization [place] Address [address] [place] [address] Care Team Providers Care Floor Manager Name Role Phone No Ref-Primary, Physician Primary Care Provider MateoMariel APRN CITY ATTORNEY Unavailable Un available Nadege Jones APRN CITY ATTORNEY Unavailable Unavail able Mateo, Mariel Stout APRN CITY ATTORNEY Unavailable Un available Mateo, Mariel Stout APRN CITY ATTORNEY Unavailable Un available Mateo, Mariel Stout APRN CITY ATTORNEY Unavailable Un available Deja Mendez PA-C Unavailable [phone] Reason for Visit * Reason Onset Date Comments Refill Request 02/18/2023 Encounter Details Date Type Department Care Team (Late st Contact Info) Description 02/18/2023 MyC Refill [facility] [address] [place] [phone] Tamra Chavez PA-C [address] [place], [place] [phone] Refill Request Social History Tobacco Use Types Packs/Day Years Used Date Smoking Tobacco: Never Smokeless Tobacco: Never Alcohol Use Standard Drinks/Week Comments Yes 0 (1 standard drink = 0.6 oz pur e alcohol) wine occasionally PHQ-2 Answer Date Recorded PHQ-2 Total Score (Adult) - Positive if 3 or more points; Administer PHQ-9 if positive 2 02/18/2023 [place] Depression Scale Answer Date Recorded [place] Depression Score 16 12/04/2020 Last EPDS Self [...] documented as of this encounter Care Teams Floor Manager Relationship Specialty Start Date End Date No Ref-Primary, Physician PCP - General 06/09/22 06/02/23 Mariel Galindo APRN CITY ATTORNEY Assigned PCP 01/16/23 04/23/23 Nadege Jones APRN CITY ATTORNEY Assigned PCP 04/24/23 10/06/23 Mariel Galindo APRN CITY ATTORNEY Assigned PCP 10/07/23 11/04/23 Mariel Galindo APRN CITY ATTORNEY Assigned PCP 11/05/23 12/03/23 Mariel Galindo APRN CITY ATTORNEY Assigned PCP 12/04/23 01/03/24 Deja Mendez PA-C [address] [place] [address] Assigned PCP 01/04/24 documented as of this encounter
--- OUTSIDE RECORDS SUMMARY | 2024-04-11 14:11 | XMS_ITS | Encounter Summary ---
Author Organization [place] Address [address] [place] [address]. [place] [address] Care Team Providers Care Coffee Supervisor Name Role Phone Deja Mendez PA-C Unavailable [phone] Reason for Visit * Reason Onset Date Comments Refill Request 02/11/2024 Encounter Details Date Type Department Care Team (Late st Contact Info) Description 02/11/2024 [facility] [address] [place] [phone] Deja Mendez PA-C [id number] [place] [phone] Refill Request Social History Tobacco Use [...] declined 04/20/2023 How often do you attend evangelical or mandaen serv ices? Never 04/20/2023 Do you belong to any clubs o r organizations such as evangelical groups, unions, fraternal or athletic groups, or [...] Answer Date Recorded PHQ-2 Score 3 12/14/2023 [facility] - Occupational Stress Questionnaire Answer Date [...] place to sleep or slept in a residential (including now)? No 04/20/2023 [place] Depression Scale Answer Date Recorded [place] Depression Score 16 12/04/2020 Last EPDS Self [...] documented as of this encounter Care Teams Coffee Supervisor Relationship Specialty Start Date End Date Deja Mendez PA-C [address] [place] [address] Assigned PCP 01/04/24 documented as of this encounter
--- OUTSIDE RECORDS SUMMARY | 2024-04-11 14:11 | XMS_ITS | Encounter Summary ---
Author Organization [facility] Address [address] [place] [address]. [place] [address] Care Team Providers Care Eye Specialist Name Role Phone No Ref-Primary, Physician Primary Care Provider MateoMariel APRN HOMEWORKER Unavailable Un available Nadege Jones APRN HOMEWORKER Unavailable Unavail able Mateo, Mariel Stout APRN HOMEWORKER Unavailable Un available Mateo, Mariel Stout APRN HOMEWORKER Unavailable Un available Mateo, Mariel Stout APRN HOMEWORKER Unavailable Un available Deja Mendez PA-C Unavailable [phone] Reason for Visit * Reason Onset Date Comments Refill Request 02/18/2023 Encounter Details Date Type Department Care Team (Late st Contact Info) Description 02/18/2023 MyC Refill [facility] [address] [place] [phone] Amanda Tolbert PA-C [address] [place], [place] [phone] Refill Request Social History Tobacco Use Types Packs/Day Years Used Date Smoking Tobacco: Never Smokeless Tobacco: Never Alcohol Use Standard Drinks/Week Comments Yes 0 (1 standard drink = 0.6 oz pur e alcohol) wine occasionally PHQ-2 Answer Date Recorded PHQ-2 Total Score (Adult) - Positive if 3 or more points; Administer PHQ-9 if positive 2 02/18/2023 [place] Depression Scale Answer Date Recorded [place] Depression Score 16 12/04/2020 Last EPDS Self [...] documented as of this encounter Care Teams Eye Specialist Relationship Specialty Start Date End Date No Ref-Primary, Physician PCP - General 06/09/22 06/02/23 Mariel Galindo APRN HOMEWORKER Assigned PCP 01/16/23 04/23/23 Nadege Jones APRN HOMEWORKER Assigned PCP 04/24/23 10/06/23 Mariel Galindo APRN HOMEWORKER Assigned PCP 10/07/23 11/04/23 Mariel Galindo APRN HOMEWORKER Assigned PCP 11/05/23 12/03/23 Mariel Galindo APRN HOMEWORKER Assigned PCP 12/04/23 01/03/24 Deja Mendez PA-C [address] [place] [address] Assigned PCP 01/04/24 documented as of this encounter
--- OUTSIDE RECORDS SUMMARY | 2024-04-11 14:11 | XMS_ITS | Clinical Summary ---
Author Organization [place] Address [address] [place] [address] Care Team Providers Care Hand Paster Name Role Phone Deja Mendez PA-C Unavailable [phone] Allergies No known active allergies Medications [...] 07/28/19 NIL, +HR HPV, not 16/18. Plan [place] 06/11/20 Patient is lost to pap tracking [...] Neuropsych evaluation for ADD completed: UNKNOWN Last [employer] website verification: 06/28/19 [email or web address] Last Assessment & Plan: Patient is followed by MARIEL GALINDO for ongoing prescription of stimulants. All refills should be approved by this provider, or covering partner. Medication(s): amphetamine-dextroamphetamine (ADDERALL XR) 30 MG per 24 hr capsule. Maximum quantity per month: 30 Clinic visit frequency required: Q 6 months Controlled substance agreement on file: No Neuropsych evaluation for ADD completed: No Last [employer] website verification: done on 05.10.17 [email or web address] CARDIOVASCULAR SCREENING; LDL GOAL LESS THAN 160 [...] Department Care Team Description 02/11/2024 Refill M [address] [address] Deja Mendez PA-C Refill Request [...] declined 04/20/2023 How often do you attend latter-day or latter-day serv ices? Never 04/20/2023 Do you belong to any clubs o r organizations such as latter-day groups, unions, fraternal or athletic groups, or [...] Answer Date Recorded PHQ-2 Score 3 12/14/2023 [facility] - Occupational Stress Questionnaire Answer Date Recorded [...] place to sleep or slept in a intermediate (including now)? No 04/20/2023 [place] Depression Scale Answer Date Recorded [place] Depression Score 16 12/04/2020 Last EPDS Self [...] TYPES DNA CERVICAL Routine 11/21/2021 8:09 AM SOFTWARE SYSTEMS ARCHITECT Cervical cancer screening GYNECOLOGIC CYTOLOGY Routine 11/21/2021 8:09 AM SOFTWARE SYSTEMS ARCHITECT Cervical cancer screening HIV ANTIGEN ANTIBODY COMBO [...] newborns, infants, and children. Nadege Robert [facility] LAB - BLOOD ORDE ELEUTERIO UM SPECIALTY CORE/PROT/ENDO Specialty Core/Prot/Endo 500 [facility], [address] [address], [facility] [phone] * Basic metabolic panel (Ca, Cl, CO2, Creat, Gluc, K, Na, BUN) (04/20/2023 3:45 PM CDT) Pathologist [facility] Sodium 137 136 - 145 mmol/L 04/21/2023 [...] 04/20/2023 3:45 PM CDT Nadege Jones APRN [facility] LAB - BLOOD ORDE ELEUTERIO LABORATORY [facility] [place] Core Lab 500 [facility], [address] [phone], [facility] [phone] * TSH WITH FREE T4 REFLEX (11/24/2022 11:06 AM CDT) TSH 1.31 0.30 - 4.20 uIU/mL 11/24/2022 5:51 PM CDT [facility] LABORATORY Blood BLOOD SPECIMEN / Unknown Venipuncture / Unknown 11/24/2022 11:06 AM CDT 11/24/2022 11:10 AM CDT Nadege Jones APRN [facility] LAB - BLOOD ORDE ELEUTERIO LABORATORY [facility] [place] Core Lab [address] [facility], [address] [phone], [facility] [phone] * Pap Screen with HPV - recommended age 30 - 65 years (11/21/2021 8:09 AM SOFTWARE SYSTEMS ARCHITECT) Interpretation Negative for Intraepithelial Lesion or Malignancy [...] component of this testing was completed at [facility] 11/25/2021 9:24 AM CDT SPECIALTY LABS Brushing CERVIX UTERI STRUCTURE / Unknown 11/21/2021 8:09 AM SOFTWARE SYSTEMS ARCHITECT 11/21/2021 8:24 AM SOFTWARE SYSTEMS ARCHITECT Mariel Galindo APRN CUSTOMS CONSULTANT LAB - [facility] SPECIALTY LABS Specialty Lab 500 [facility], [address] [address], [facility] [phone] * HPV High Risk Types DNA Cervical (11/21/2021 8:09 AM SOFTWARE SYSTEMS ARCHITECT) Other HR HPV Negative Negative 11/26/2021 2:10 PM CDT [facility] DIAGNOST[facility] HPV16 DNA Negative Negative 11/26/2021 2:10 PM CDT [facility]ST[facility] HPV18 DNA Negative Negative 11/26/2021 2:10 PM CDT MOLE[facility] DIAGNOSTICS FINAL DIAGNOSIS This patient's sample is negative for HPV DNA. This test was developed and its performance characteristics determined by the [facility], Molecular Diagnostics Laboratory. It has not been [...] Non-blood Collection / Unknown 11/21/2021 8:09 AM SOFTWARE SYSTEMS ARCHITECT 11/25/2021 3:59 PM CDT Mariel Galindo APRN CUSTOMS CONSULTANT LAB - BLOOD ORDERABLES MOLECULAR DIAGNOSTICS Molecular Diagnostics 500 [facility], [address] [place] [address], [facility] [phone] * HIV Antigen Antibody Combo (05/20/2016) HIV Antigen Antibody Combo Negative Blood specimen (specimen) Patient Reported LAB - BLOOD ORDERABL ES from Last 3 Months or Most Recently Relevant to Health Maintenance Care Teams Hand Paster Relationship Specialty Start Date End Date Deja Mendez PA-C [address] [facility] [place] [phone] Assigned PCP 01/04/24
--- OUTSIDE RECORDS SUMMARY | 2024-04-11 14:12 | XMS_ITS | Encounter Summary ---
Author Organization [facility] Address [address] [place] [address]. [place] [address] Care Team Providers Care Nanotechnology Technician Name Role Phone Mateo, Mariel Stout SOCCER BALL ASSEMBLER STUDIO DESIGNER Primary Care Provi adam Unavailable Mateo, Mariel Stout SOCCER BALL ASSEMBLER STUDIO DESIGNER Unavailable Un available Samia Silverman MD Unavailable [phone] No Ref-Primary, Physician Primary Care Provider Mateo, Mariel Stout APRN STUDIO DESIGNER Unavailable Un available Nadege Jones APRN STUDIO DESIGNER Unavailable Unavail able Matoe, Mariel Stout APRN STUDIO DESIGNER Unavailable Un available Nadege Jones APRN STUDIO DESIGNER Unavailable Unavail able Mateo, Mariel Stout SOCCER BALL ASSEMBLER STUDIO DESIGNER Unavailable Un available Mateo, Mareil Stout APRN STUDIO DESIGNER Unavailable Un available Mateo, Mariel Stout APRN STUDIO DESIGNER Unavailable Un available Deja Mendez PA-C Unavailable [phone] Encounter Details Date Type Department Care Team (Late st Contact Info) Description 09/16/2020 [facility] Adv[place] [address] [address] Sheyla Cespedes CMA Social History [...] documented as of this encounter Care Teams Nanotechnology Technician Relationship Specialty Start Date End Date Mariel Galindo APRN CNP PCP - General Nurse Practitioner 08/13/14 06/08/22 No Ref-Primary, Physician PCP - General 06/09/22 06/02/23 Mariel Galindo APRN CNP Assigned PCP 10/21/14 04/10/22 Samia Silverman MD [address] [place] [address] Assigned OBGYN Provider 08/04/20 Mariel Galindo APRN CNP Assigned PCP 06/27/22 01/08/23 Nadege Jones APRN CNP Assigned PCP 01/09/23 01/15/23 Mariel Galindo APRN CNP Assigned PCP 01/16/23 04/23/23 Nadege Jones APRN CNP Assigned PCP 04/24/23 10/06/23 Mariel Galindo APRN CNP Assigned PCP 10/07/23 11/04/23 Mariel Galindo APRN CNP Assigned PCP 11/05/23 12/03/23 Mariel Galindo APRN CNP Assigned PCP 12/04/23 01/03/24 Deja Mendez PA-C [address] [place] [phone] Assigned PCP 01/04/24 documented as of this encounter
--- OUTSIDE RECORDS SUMMARY | 2024-04-11 14:12 | XMS_ITS | Encounter Summary ---
Author Organization [place] Address [address] [place] [address]. [address] Care Team Providers Care Business Manager College [employer] Name Role Phone Mariel Galindo APRN, CNP Primary Care Provi adam Unavailable Mateo, Mariel Stout APRN BRICK MAKER Unavailable Un available Samia Silverman MD Unavailable [phone] No Ref-Primary, Physician Primary Care Provider MateoMariel meng APRN BRICK MAKER Unavailable Un available Nadege Jones APRN BRICK MAKER Unavailable Unavail able Mateo, Mariel Stout APRN BRICK MAKER Unavailable Un available Nadege Jones APRN BRICK MAKER Unavailable Unavail able Mateo, Mariel Stout APRN BRICK MAKER Unavailable Un available Mateo, Mariel Stout APRN BRICK MAKER Unavailable Un available Mateo, Mariel Stout APRN BRICK MAKER Unavailable Un available Deja Mendez PA-C Unavailable [phone] Reason for Visit * Reason Onset Date Comments Refill Request 06/06/2021 Encounter Details Date Type Department Care Team (Late st Contact Info) Description 06/06/2021 [facility] [address] [place] [address] Mariel Galindo APRN CNP Refill Request Social History Tobacco Use Types Packs/Day Years Used Date Smoking Tobacco: Never Smokeless Tobacco: Never Alcohol Use Standard Drinks/Week Comments Not Currently 0 (1 standard drink = 0.6 oz pur e alcohol) wine occasionally PHQ-2 Answer Date Recorded PHQ-2 Total Score (Adult) - Positive if 3 or more points; Administer PHQ-9 if positive 0 04/07/2021 [place] Depression Scale Answer Date Recorded [place] Depression Score 16 12/04/2020 Last EPDS Self [...] documented as of this encounter Care Teams Business Manager College [employer] Relationship Specialty Start Date End Date Mariel Galindo APRN BRICK MAKER PCP - General Nurse Practitioner 08/13/14 06/08/22 No Ref-Primary, Physician PCP - General 06/09/22 06/02/23 Mariel Galindo APRN BRICK MAKER Assigned PCP 10/21/14 04/10/22 Samia Silverman MD [address] [address] Assigned OBGYN Provider 08/04/20 Mariel Galindo APRN BRICK MAKER Assigned PCP 06/27/22 01/08/23 Nadege Jones APRN BRICK MAKER Assigned PCP 01/09/23 01/15/23 Mateo, Mariel Stout APRN BRICK MAKER Assigned PCP 01/16/23 04/23/23 Nadege Jones APRN BRICK MAKER Assigned PCP 04/24/23 10/06/23 Mateo, Mariel Stout APRN BRICK MAKER Assigned PCP 10/07/23 11/04/23 Mateo, Mariel Stout APRN BRICK MAKER Assigned PCP 11/05/23 12/03/23 Mateo, Mariel Stout APRN BRICK MAKER Assigned PCP 12/04/23 01/03/24 Deja Mendez PA-C [address] [place] [phone] Assigned PCP 01/04/24 documented as of this encounter
--- OUTSIDE RECORDS SUMMARY | 2024-04-11 14:12 | XMS_ITS | Encounter Summary ---
Author Organization [facility] Address [address] [place] [address]. [place] [address] Care Team Providers Care Echocardiographer Name Role Phone Mateo, Mariel Stout SURVEYOR HELPER ROD CAPSULE INSPECTOR Primary Care Provi adam Unavailable Mateo, Mariel Stout APRN CAPSULE INSPECTOR Unavailable Un available No Ref-Primary, Physician Primary Care Provider Mateo, Mariel Stout SURVEYOR HELPER ROD CAPSULE INSPECTOR Unavailable Un available GillNadege ricci APRN CAPSULE INSPECTOR Unavailable Unavail able Mateo, Mariel Stout APRN CAPSULE INSPECTOR Unavailable Un available GillNadege ricci APRN CAPSULE INSPECTOR Unavailable Unavail able Mateo, Mariel Stout APRN CAPSULE INSPECTOR Unavailable Un available Mateo, Mariel Stout APRN CAPSULE INSPECTOR Unavailable Un available Mateo, Mariel Stout APRN CAPSULE INSPECTOR Unavailable Un available Deja Mendez PA-C Unavailable [phone] Encounter Details Date Type Department Care Team (Late st Contact Info) Description 02/10/2022 [facility] [place] [facility] [address] [place] [phone] Tamra Chavez PA-C [address] [place], [place] [phone] Social History Tobacco Use Types Packs/Day Years Used Date Smoking Tobacco: Never Smokeless Tobacco: Never Alcohol Use Standard Drinks/Week Comments Yes 0 (1 standard drink = 0.6 oz pur e alcohol) wine occasionally PHQ-2 Answer Date Recorded PHQ-2 Score 2 11/21/2021 [place] Depression Scale Answer Date Recorded [place] Depression Score 16 12/04/2020 Last EPDS Self [...] Depression Total Score: 13 022 7:03 AM WINE BOTTLE INSPECTOR documented as of this encounter Care Teams Echocardiographer Relationship Specialty Start Date End Date Mariel [...] CNP Assigned PCP 11/05/23 12/03/23 Mariel Galindo, SURVEYOR HELPER ROD CAPSULE INSPECTOR Assigned PCP 12/04/23 01/03/24 Deja Mendez PA-C [address] [place] [phone] Assigned PCP 01/04/24 documented as of this encounter
--- OUTSIDE RECORDS SUMMARY | 2024-04-11 14:12 | XMS_ITS | Encounter Summary ---
Author Organization [facility] Address [address] [place] [address]. [place] [address] Care Team Providers Care Breaker Unit Assembler Name Role Phone Mateo, Mariel Stout APRN SOIL SCIENCE TEACHER Primary Care Provi adam Unavailable Mateo, Mariel Stout FARM EQUIPMENT TECHNICIAN SOIL SCIENCE TEACHER Unavailable Un available Samia Silverman MD Unavailable [phone] No Ref-Primary, Physician Primary Care Provider Mateo, Mariel Stout APRN SOIL SCIENCE TEACHER Unavailable Un available Nadege Jones APRN SOIL SCIENCE TEACHER Unavailable Unavail able Mateo, Mariel Stout APRN SOIL SCIENCE TEACHER Unavailable Un available Nadege Jones APRN SOIL SCIENCE TEACHER Unavailable Unavail able Mateo, Mariel Stout FARM EQUIPMENT TECHNICIAN SOIL SCIENCE TEACHER Unavailable Un available Mateo, Mariel Stout APRN SOIL SCIENCE TEACHER Unavailable Un available Mateo, Mariel Stout APRN SOIL SCIENCE TEACHER Unavailable Un available Deja Mendez PA-C Unavailable [phone] Encounter Details Date Type Department Care Team (Late st Contact Info) Description 09/27/2019 [facility] [address] [place] [address] Mimi Sun Social History Tobacco [...] Total Score: 9 07/28/20 19 8:28 AM OVERHEAD LINE WORKER documented as of this encounter Care Teams Breaker Unit Assembler Relationship Specialty Start Date End Date Mariel Galindo APRN CNP PCP - General Nurse Practitioner 08/13/14 06/08/22 No Ref-Primary, Physician PCP - General 06/09/22 06/02/23 Mariel Galindo APRN CNP Assigned PCP 10/21/14 04/10/22 Samia Silverman MD [address] [place] [address] Assigned OBGYN Provider 08/04/20 Mariel Galindo APRN CNP Assigned PCP 06/27/22 01/08/23 Nadege Jones APRN SOIL SCIENCE TEACHER Assigned PCP 01/09/23 01/15/23 Mariel Galindo APRN SOIL SCIENCE TEACHER Assigned PCP 01/16/23 04/23/23 Nadege Jones APRN SOIL SCIENCE TEACHER Assigned PCP 04/24/23 10/06/23 Mariel Galindo APRN CNP Assigned PCP 10/07/23 11/04/23 Mariel Galindo APRN CNP Assigned PCP 11/05/23 12/03/23 Mariel Galindo APRN CNP Assigned PCP 12/04/23 01/03/24 Deja Mendez PA-C [address] [place] [phone] Assigned PCP 01/04/24 documented as of this encounter
--- OUTSIDE RECORDS SUMMARY | 2024-04-11 14:12 | XMS_ITS | Encounter Summary ---
Author Organization [facility] Address [address] [place] [address] Care Team Providers Care Marking Machine Tender Name Role Phone MateoMariel meng APRN PUBLIC RELATIONS ACCOUNT EXECUTIVE Primary Care Provi adam Unavailable Mateo, Mariel Stout APRN PUBLIC RELATIONS ACCOUNT EXECUTIVE Unavailable Un available Samia Silverman MD Unavailable [phone] No Ref-Primary, Physician Primary Care Provider Mateo, Mariel Stout APRN PUBLIC RELATIONS ACCOUNT EXECUTIVE Unavailable Un available Nadege Jones APRN PUBLIC RELATIONS ACCOUNT EXECUTIVE Unavailable Unavail able Mateo, Mariel Stout APRN PUBLIC RELATIONS ACCOUNT EXECUTIVE Unavailable Un available Nadege Jones APRN PUBLIC RELATIONS ACCOUNT EXECUTIVE Unavailable Unavail able Mateo, Mariel Stout SET UP MOLD TECHNICIAN PUBLIC RELATIONS ACCOUNT EXECUTIVE Unavailable Un available Mateo, Mariel Stout APRN PUBLIC RELATIONS ACCOUNT EXECUTIVE Unavailable Un available MateoMariel APRN PUBLIC RELATIONS ACCOUNT EXECUTIVE Unavailable Un available Deja Mendez PA-C Unavailable [phone] Encounter Details Date Type Department Care [...] documented as of this encounter Care Teams Marking Machine Tender Relationship Specialty Start Date End Date Mariel Galindo APRN CNP PCP - General Nurse Practitioner 08/13/14 06/08/22 No Ref-Primary, Physician PCP - General 06/09/22 06/02/23 Mariel Galindo APRN CNP Assigned PCP 10/21/14 04/10/22 Samia Silverman MD [address] [place] [address] Assigned OBGYN Provider 08/04/20 Mariel Galindo APRN CNP Assigned PCP 06/27/22 01/08/23 Nadege Jones APRN PUBLIC RELATIONS ACCOUNT EXECUTIVE Assigned PCP 01/09/23 01/15/23 Mariel Galindo APRN CNP Assigned PCP 01/16/23 04/23/23 Nadege Jones APRN CNP Assigned PCP 04/24/23 10/06/23 Mariel Galindo APRN CNP Assigned PCP 10/07/23 11/04/23 Mariel Galindo APRN CNP Assigned PCP 11/05/23 12/03/23 Mariel Galindo APRN CNP Assigned PCP 12/04/23 01/03/24 Deja Mendez PA-C [address] [place] [phone] Assigned PCP 01/04/24 documented as of this encounter
--- OUTSIDE RECORDS SUMMARY | 2024-04-11 14:12 | XMS_ITS | Encounter Summary ---
Author Organization [facility] Address [address] [place] [address]. [place] [address] Care Team Providers Care Technical Applications Scientist Name Role Phone Mariel Galindo APRN, CNP Primary Care Provi adam Unavailable Mateo, Mariel Stout APRN VISITING HOUSEKEEPER Unavailable Un available Samia Silverman MD Unavailable [phone] No Ref-Primary, Physician Primary Care Provider MateoMariel meng APRN VISITING HOUSEKEEPER Unavailable Un available Nadege Jones APRN VISITING HOUSEKEEPER Unavailable Unavail able Mateo, Mariel Stout APRN VISITING HOUSEKEEPER Unavailable Un available Nadege Jones APRN VISITING HOUSEKEEPER Unavailable Unavail able Mateo, Mariel Stout APRN VISITING HOUSEKEEPER Unavailable Un available Mateo, Mariel Stout APRN VISITING HOUSEKEEPER Unavailable Un available MateoMariel APRN VISITING HOUSEKEEPER Unavailable Un available Deja Mendez PA-C Unavailable [phone] Reason for Visit * Reason Comments Medication Refill Encounter Details Date Type Department Care Team (Late st Contact Info) Description 02/02/[address] [address] Mariel Galindo APRN CNP Medication Refill Social History Tobacco Use Types Packs/Day Years Used Date Smoking Tobacco: Never Smokeless Tobacco: Never Alcohol Use Standard Drinks/Week Comments Not Currently 0 (1 standard drink = 0.6 oz pur e alcohol) wine occasionally PHQ-2 Answer Date Recorded PHQ-2 Score 3 12/23/2020 [place] Depression Scale Answer Date Recorded [place] Depression Score 16 12/04/2020 Last EPDS Self [...] review/approval because: Elevated PHQ-9 Marcela Benedict RN [facility] -- Triage Nurse documented in this encounter Plan of Treatment Not on file documented as of this encounter Visit Diagnoses Diagnosis Moderate major depression (H) Major depressive disorder, single episode, moderate documented in this encounter Additional Health Concerns Assessment Noted Time PHQ-9 Depression Total Score: 17 021 1:27 PM CDT documented as of this encounter Care Teams Technical Applications Scientist Relationship Specialty Start Date End Date Mariel Galindo APRN CNP PCP - General Nurse Practitioner 08/13/14 06/08/22 No Ref-Primary, Physician PCP - General 06/09/22 06/02/23 Mariel Galindo APRN VISITING HOUSEKEEPER Assigned PCP 10/21/14 04/10/22 Samia Silverman MD [address] [place] [address] Assigned OBGYN Provider 08/04/20 Mariel Galindo APRN VISITING HOUSEKEEPER Assigned PCP 06/27/22 01/08/23 Nadege Jones APRN VISITING HOUSEKEEPER Assigned PCP 01/09/23 01/15/23 Mateo, Mariel Stout APRN VISITING HOUSEKEEPER Assigned PCP 01/16/23 04/23/23 Nadege Jones APRN VISITING HOUSEKEEPER Assigned PCP 04/24/23 10/06/23 Mateo, Mariel Stout APRN VISITING HOUSEKEEPER Assigned PCP 10/07/23 11/04/23 Mateo, Mariel Stout APRN VISITING HOUSEKEEPER Assigned PCP 11/05/23 12/03/23 Mateo, Mariel Stout APRN VISITING HOUSEKEEPER Assigned PCP 12/04/23 01/03/24 Deja Mendez PA-C [address] [place] [address] Assigned PCP 01/04/24 documented as of this encounter
--- OUTSIDE RECORDS SUMMARY | 2024-04-11 14:12 | XMS_ITS | Encounter Summary ---
Author Organization [facility] Address [address] [place] [address]. [place] [address] Care Team Providers Care Forensic Scientist Name Role Phone Mariel Galindo APRN LOGISTICS MANAGEMENT SPECIALIST Primary Care Provi adam Unavailable Mateo, Mariel Stout APRN LOGISTICS MANAGEMENT SPECIALIST Unavailable Un available Samia Silverman MD Unavailable [phone] No Ref-Primary, Physician Primary Care Provider MateoMariel meng APRN LOGISTICS MANAGEMENT SPECIALIST Unavailable Un available Nadege Jones APRN LOGISTICS MANAGEMENT SPECIALIST Unavailable Unavail able Mateo, Mariel Stout APRN LOGISTICS MANAGEMENT SPECIALIST Unavailable Un available Nadege Jones APRN LOGISTICS MANAGEMENT SPECIALIST Unavailable Unavail able Mateo, Mariel Stout APRN LOGISTICS MANAGEMENT SPECIALIST Unavailable Un available Mateo, Mariel Stout APRN LOGISTICS MANAGEMENT SPECIALIST Unavailable Un available Mateo, Mariel Stout APRN LOGISTICS MANAGEMENT SPECIALIST Unavailable Un available Deja Mendez PA-C Unavailable [phone] Reason for Visit * Reason Onset Date Comments Refill Request 03/06/2021 Encounter Details Date Type Department Care Team (Late st Contact Info) Description 03/06/2021 [facility] Refill [address] [address] Mariel Galindo APRN CNP Refill Request Social History Tobacco Use Types Packs/Day Years Used Date Smoking Tobacco: Never Smokeless Tobacco: Never Alcohol Use Standard Drinks/Week Comments Not Currently 0 (1 standard drink = 0.6 oz pur e alcohol) wine occasionally PHQ-2 Answer Date Recorded PHQ-2 Total Score (Adult) - Positive if 3 or more points; Administer PHQ-9 if positive 0 03/06/2021 [place] Depression Scale Answer Date Recorded [place] Depression Score 16 12/04/2020 Last EPDS Self [...] for review/approval because: [place] [facility] [place] Failing PHQ9 Trish Salvador RN [...] documented as of this encounter Care Teams Forensic Scientist Relationship Specialty Start Date End Date Mariel Galindo APRN LOGISTICS MANAGEMENT SPECIALIST PCP - General Nurse Practitioner 08/13/14 06/08/22 No Ref-Primary, Physician PCP - General 06/09/22 06/02/23 Mariel Galindo APRN LOGISTICS MANAGEMENT SPECIALIST Assigned PCP 10/21/14 04/10/22 Samia Silverman MD [address] [place] [address] [place] [address] Assigned OBGYN Provider 08/04/20 Mateo, Mariel Stout APRN LOGISTICS MANAGEMENT SPECIALIST Assigned PCP 06/27/22 01/08/23 Nadege Jones APRN LOGISTICS MANAGEMENT SPECIALIST Assigned PCP 01/09/23 01/15/23 Mateo, Mariel Stout APRN LOGISTICS MANAGEMENT SPECIALIST Assigned PCP 01/16/23 04/23/23 Nadege Jones APRN LOGISTICS MANAGEMENT SPECIALIST Assigned PCP 04/24/23 10/06/23 Mateo, Mariel Stout APRN LOGISTICS MANAGEMENT SPECIALIST Assigned PCP 10/07/23 11/04/23 Mateo, Mariel Stout APRN LOGISTICS MANAGEMENT SPECIALIST Assigned PCP 11/05/23 12/03/23 Mateo, Mariel Stout APRN LOGISTICS MANAGEMENT SPECIALIST Assigned PCP 12/04/23 01/03/24 Deja Mendez PA-C [address] [place] [address] Assigned PCP 01/04/24 documented as of this encounter
--- OUTSIDE RECORDS SUMMARY | 2024-04-11 14:12 | XMS_ITS | Encounter Summary ---
Author Organization [facility] Address [address] [place] [address] Care Team Providers Care Insurance Specialist Name Role Phone Mariel Galindo APRN, CNP Primary Care Provi adam Unavailable Mateo, Mariel Stout APRN CERTIFIED RETINAL ANGIOGRAPHER Unavailable Un available Mateo, Mariel Stout APRN CERTIFIED RETINAL ANGIOGRAPHER Unavailable Un available Samia Silverman MD Unavailable [phone] No Ref-Primary, Physician Primary Care Provider Mateo, Mariel Stout APRN CERTIFIED RETINAL ANGIOGRAPHER Unavailable Un available Nadege Jones APRN CERTIFIED RETINAL ANGIOGRAPHER Unavailable Unavail able Mateo, Mariel Stout APRN CERTIFIED RETINAL ANGIOGRAPHER Unavailable Un available Nadege Jones APRN CERTIFIED RETINAL ANGIOGRAPHER Unavailable Unavail able Mateo, Mariel Stout APRN CERTIFIED RETINAL ANGIOGRAPHER Unavailable Un available Mateo, Mariel Stout APRN CERTIFIED RETINAL ANGIOGRAPHER Unavailable Un available Mateo, Mariel Stout APRN CERTIFIED RETINAL ANGIOGRAPHER Unavailable Un available Deja Mendez PA-C Unavailable [phone] Reason for Visit * Reason Comments Medication Refill FLUoxetine (PROZAC) 20 MG capsule Encounter Details Date Type Department Care Team (Late st Contact Info) Description 03/25/[address] [address] Mariel Galindo APRN CNP Medication [...] # refills: 1 Last Office Visit with [facility] primary care provider: 10/23/2016Mateo Last PHQ-9 score [...] documented as of this encounter Care Teams Insurance Specialist Relationship Specialty Start Date End Date Mariel Galindo APRN CNP PCP - General Nurse Practitioner 08/13/14 06/08/22 Mariel Galindo APRN CNP PCP - Assigned PCP 10/21/14 11/15/18 No Ref-Primary, Physician PCP - General 06/09/22 06/02/23 Mariel Galindo APRN CERTIFIED RETINAL ANGIOGRAPHER Assigned PCP 10/21/14 04/10/22 Samia Silverman MD [address] [address] Assigned OBGYN Provider 08/04/20 Mariel Galindo APRN CERTIFIED RETINAL ANGIOGRAPHER Assigned PCP 06/27/22 01/08/23 Nadege Jones APRN CERTIFIED RETINAL ANGIOGRAPHER Assigned PCP 01/09/23 01/15/23 Mariel Galindo APRN CERTIFIED RETINAL ANGIOGRAPHER Assigned PCP 01/16/23 04/23/23 Nadege Jones APRN CERTIFIED RETINAL ANGIOGRAPHER Assigned PCP 04/24/23 10/06/23 Mariel Galindo APRN CERTIFIED RETINAL ANGIOGRAPHER Assigned PCP 10/07/23 11/04/23 Mariel Galindo APRN CERTIFIED RETINAL ANGIOGRAPHER Assigned PCP 11/05/23 12/03/23 Mariel Galindo APRN CERTIFIED RETINAL ANGIOGRAPHER Assigned PCP 12/04/23 01/03/24 Deja Mendez PA-C [address] [place] [phone] Assigned PCP 01/04/24 documented as of this encounter
--- OUTSIDE RECORDS SUMMARY | 2024-04-11 14:12 | XMS_ITS | Encounter Summary ---
Author Organization [facility] Address [address] [place] [address]. [place] [address] Care Team Providers Care Emr Analyst Name Role Phone Mateo, Mariel Stout BANKING SERVICES ADVISOR OVERHAULER BUS TRUCK Primary Care Provi adam Unavailable Mateo, Mariel Stout BANKING SERVICES ADVISOR OVERHAULER BUS TRUCK Unavailable Un available Samia Silverman MD Unavailable [phone] No Ref-Primary, Physician Primary Care Provider Mateo, Mariel Stout APRN OVERHAULER BUS TRUCK Unavailable Un available Nadege Jones APRN OVERHAULER BUS TRUCK Unavailable Unavail able Mateo, Mariel Stout APRN OVERHAULER BUS TRUCK Unavailable Un available Nadege Jones APRN OVERHAULER BUS TRUCK Unavailable Unavail able Mateo, Mariel Stout BANKING SERVICES ADVISOR OVERHAULER BUS TRUCK Unavailable Un available Mateo, Mariel Stout APRN OVERHAULER BUS TRUCK Unavailable Un available Mateo, Mariel Stout BANKING SERVICES ADVISOR OVERHAULER BUS TRUCK Unavailable Un available Deja Mendez PA-C Unavailable [phone] Encounter Details Date Type Department Care Team (Late st Contact Info) Description 03/03/2021 [facility] Medical Advice [facility] [place] [address] [place] [address] Sheyla Cespedes, MAHI Social History Tobacco Use Types Packs/Day Years Used Date Smoking Tobacco: Never Smokeless Tobacco: Never Alcohol Use Standard Drinks/Week Comments Not Currently 0 (1 standard drink = 0.6 oz pur e alcohol) wine occasionally PHQ-2 Answer Date Recorded PHQ-2 Total Score (Adult) - Positive if 3 or more points; Administer PHQ-9 if positive 0 03/06/2021 [place] Depression Scale Answer Date Recorded [place] Depression Score 16 12/04/2020 Last EPDS Self [...] documented as of this encounter Care Teams Emr Analyst Relationship Specialty Start Date End Date Mariel Galindo APRN CNP PCP - General Nurse Practitioner 08/13/14 06/08/22 No Ref-Primary, Physician PCP - General 06/09/22 06/02/23 Mariel Galindo APRN CNP Assigned PCP 10/21/14 04/10/22 Samia Silverman MD [address] [place] [address] Assigned OBGYN Provider 08/04/20 Mariel Galindo APRN OVERHAULER BUS TRUCK Assigned PCP 06/27/22 01/08/23 Nadege Jones APRN CNP Assigned PCP 01/09/23 01/15/23 Mariel Galindo APRN CNP Assigned PCP 01/16/23 04/23/23 Nadege Jones APRN CNP Assigned PCP 04/24/23 10/06/23 Mariel Galindo APRN CNP Assigned PCP 10/07/23 11/04/23 Mariel Galindo APRN OVERHAULER BUS TRUCK Assigned PCP 11/05/23 12/03/23 Mariel Galindo APRN OVERHAULER BUS TRUCK Assigned PCP 12/04/23 01/03/24 Deja Mendez PA-C [address] [place] [phone] Assigned PCP 01/04/24 documented as of this encounter
--- OUTSIDE RECORDS SUMMARY | 2024-04-11 14:12 | XMS_ITS | Encounter Summary ---
Author Organization [facility] Address [address] [place] [address]. [place] [address] Care Team Providers Care Senior Market Research Analyst Name Role Phone Mariel Galindo APRN INFORMATION TECHNOLOGY ADMINISTRATOR Primary Care Provi adam Unavailable Mateo, Mariel Stout APRN INFORMATION TECHNOLOGY ADMINISTRATOR Unavailable Un available Samia Silverman MD Unavailable [phone] No Ref-Primary, Physician Primary Care Provider MateoMariel meng APRN INFORMATION TECHNOLOGY ADMINISTRATOR Unavailable Un available Nadege Jones APRN INFORMATION TECHNOLOGY ADMINISTRATOR Unavailable Unavail able Mateo, Mariel Stout APRN INFORMATION TECHNOLOGY ADMINISTRATOR Unavailable Un available Nadege Jones APRN INFORMATION TECHNOLOGY ADMINISTRATOR Unavailable Unavail able Mateo, Mariel Stout APRN INFORMATION TECHNOLOGY ADMINISTRATOR Unavailable Un available Mateo, Mariel Stout APRN INFORMATION TECHNOLOGY ADMINISTRATOR Unavailable Un available Mateo, Mariel Stout APRN INFORMATION TECHNOLOGY ADMINISTRATOR Unavailable Un available Deja Mendez PA-C Unavailable [phone] Reason for Visit * Reason Onset Date Comments Refill Request 09/14/2019 Encounter Details Date Type Department Care Team (Late st Contact Info) Description 09/14/2019 MyC Refill [address] [address] Mariel Galindo APRN INFORMATION TECHNOLOGY ADMINISTRATOR Refill Request Social History Tobacco Use Types [...] Total Score: 9 07/28/20 19 8:28 AM PAINT AND TABLE EDGER documented as of this encounter Care Teams Senior Market Research Analyst Relationship Specialty Start Date End Date Mariel Galindo APRN CNP PCP - General Nurse Practitioner 08/13/14 06/08/22 No Ref-Primary, Physician PCP - General 06/09/22 06/02/23 Mariel Galindo APRN CNP Assigned PCP 10/21/14 04/10/22 Samia Silverman MD [address] [place] [address] Assigned OBGYN Provider 08/04/20 Mariel Galindo APRN INFORMATION TECHNOLOGY ADMINISTRATOR Assigned PCP 06/27/22 01/08/23 Nadege Jones APRN INFORMATION TECHNOLOGY ADMINISTRATOR Assigned PCP 01/09/23 01/15/23 Mariel Galindo APRN CNP Assigned PCP 01/16/23 04/23/23 Nadege Jones APRN INFORMATION TECHNOLOGY ADMINISTRATOR Assigned PCP 04/24/23 10/06/23 Mariel Galindo APRN CNP Assigned PCP 10/07/23 11/04/23 Mariel Galindo APRN INFORMATION TECHNOLOGY ADMINISTRATOR Assigned PCP 11/05/23 12/03/23 Mariel Galindo APRN INFORMATION TECHNOLOGY ADMINISTRATOR Assigned PCP 12/04/23 01/03/24 Deja Mendez PA-C [address] [place] [phone] Assigned PCP 01/04/24 documented as of this encounter
--- OUTSIDE RECORDS SUMMARY | 2024-04-11 14:12 | XMS_ITS | Encounter Summary ---
Author Organization [facility] Address [address] [place] [address]. [place] [address] Care Team Providers Care House Painter Helper Name Role Phone Mariel Galindo APRN CADD TECHNICIAN Primary Care Provi adam Unavailable Mateo, Mariel Stout APRN CADD TECHNICIAN Unavailable Un available Samia Silverman MD Unavailable [phone] No Ref-Primary, Physician Primary Care Provider MateoMariel meng APRN CADD TECHNICIAN Unavailable Un available Nadege Jones APRN CADD TECHNICIAN Unavailable Unavail able Mateo, Mariel Stout APRN CADD TECHNICIAN Unavailable Un available Nadege Jones APRN CADD TECHNICIAN Unavailable Unavail able Mateo, Mariel Stout APRN CADD TECHNICIAN Unavailable Un available Mateo, Mariel Stout APRN CADD TECHNICIAN Unavailable Un available Mateo, Mariel Stout APRN CADD TECHNICIAN Unavailable Un available Deja Mendez PA-C Unavailable [phone] Reason for Visit * Reason Onset Date Comments Refill Request 10/09/2021 Encounter Details Date Type Department Care Team (Late st Contact Info) Description 10/09/2021 MyC Refill [address] [address] Mariel Galindo APRN CNP Refill Request Social History Tobacco Use Types Packs/Day Years Used Date Smoking Tobacco: Never Smokeless Tobacco: Never Alcohol Use Standard Drinks/Week Comments Not Currently 0 (1 standard drink = 0.6 oz pur e alcohol) wine occasionally PHQ-2 Answer Date Recorded PHQ-2 Total Score (Adult) - Positive if 3 or more points; Administer PHQ-9 if positive 2 07/09/2021 [place] Depression Scale Answer Date Recorded [place] Depression Score 16 12/04/2020 Last EPDS Self [...] Pedersen RN on 10/09/2021 at 8:54 AM CONSULTANT documented in this encounter Plan of Treatment Not on file documented as of this encounter Visit Diagnoses Diagnosis ADHD (attention deficit hyperactivity disorder), combined type Attention deficit disorder with hyperactivity documented in this encounter Additional Health Concerns Assessment Noted Time PHQ-9 Depression Total Score: 12 021 7:02 AM CDT documented as of this encounter Care Teams House Painter Helper Relationship Specialty Start Date End Date Mariel Galindo APRN CADD TECHNICIAN PCP - General Nurse Practitioner 08/13/14 06/08/22 No Ref-Primary, Physician PCP - General 06/09/22 06/02/23 Mariel Galindo APRN CADD TECHNICIAN Assigned PCP 10/21/14 04/10/22 Samia Silverman MD [address] [address] Assigned OBGYN Provider 08/04/20 Mariel Galindo APRN CADD TECHNICIAN Assigned PCP 06/27/22 01/08/23 Nadege Jones APRN CADD TECHNICIAN Assigned PCP 01/09/23 01/15/23 Mateo, Mariel Stout SPORTS EQUIPMENT RACKER CADD TECHNICIAN Assigned PCP 01/16/23 04/23/23 Nadege Jones APRN CADD TECHNICIAN Assigned PCP 04/24/23 10/06/23 Mateo, Mariel Stout APRN CADD TECHNICIAN Assigned PCP 10/07/23 11/04/23 MateoMariel meng APRN CADD TECHNICIAN Assigned PCP 11/05/23 12/03/23 Mateo, Mariel Stout APRN CADD TECHNICIAN Assigned PCP 12/04/23 01/03/24 Deja Mendez PA-C [address] [place] [address] Assigned PCP 01/04/24 documented as of this encounter
--- OUTSIDE RECORDS SUMMARY | 2024-04-11 14:12 | XMS_ITS | Encounter Summary ---
Author Organization [facility] Address [address] [place] [address]. [place] [address] Care Team Providers Care Knocker Out Name Role Phone Mariel Galindo APRN, CNP Primary Care Provi adam Unavailable Mateo, Mariel Stout APRN DIRECTOR CLINICAL OPERATIONS Unavailable Un available Samia Silverman MD Unavailable [phone] No Ref-Primary, Physician Primary Care Provider MateoMariel meng APRN DIRECTOR CLINICAL OPERATIONS Unavailable Un available Nadege Jones APRN DIRECTOR CLINICAL OPERATIONS Unavailable Unavail able Mateo, Mariel Stout APRN DIRECTOR CLINICAL OPERATIONS Unavailable Un available Nadege Jones APRN DIRECTOR CLINICAL OPERATIONS Unavailable Unavail able Mateo, Mariel Stout APRN DIRECTOR CLINICAL OPERATIONS Unavailable Un available Mateo, Mariel Stout APRN DIRECTOR CLINICAL OPERATIONS Unavailable Un available Mateo, Mariel Stout APRN DIRECTOR CLINICAL OPERATIONS Unavailable Un available Deja Mendez PA-C Unavailable [phone] Reason for Visit * Reason Onset Date Comments Refill Request 07/07/2021 Encounter Details Date Type Department Care Team (Late st Contact Info) Description 07/07/2021 [facility] [address] [address] Mariel Galindo APRN DIRECTOR CLINICAL OPERATIONS Refill Request Social History Tobacco Use Types Packs/Day Years Used Date Smoking Tobacco: Never Smokeless Tobacco: Never Alcohol Use Standard Drinks/Week Comments Not Currently 0 (1 standard drink = 0.6 oz pur e alcohol) wine occasionally PHQ-2 Answer Date Recorded PHQ-2 Total Score (Adult) - Positive if 3 or more points; Administer PHQ-9 if positive 2 07/09/2021 Wellington Depression Scale Answer Date Recorded [place] Depression Score 16 12/04/2020 Last EPDS Self [...] documented as of this encounter Care Teams Knocker Out Relationship Specialty Start Date End Date Mariel Galindo APRN CNP PCP - General Nurse Practitioner 08/13/14 06/08/22 No Ref-Primary, Physician PCP - General 06/09/22 06/02/23 Mariel Galindo APRN CNP Assigned PCP 10/21/14 04/10/22 Samia Silverman MD [address] [place] [address] Assigned OBGYN Provider 08/04/20 Mariel Galindo APRN CNP Assigned PCP 06/27/22 01/08/23 Nadege Jones APRN CNP Assigned PCP 01/09/23 01/15/23 Mariel Galindo APRN CNP Assigned PCP 01/16/23 04/23/23 Nadege Jones APRN CNP Assigned PCP 04/24/23 10/06/23 MateoMariel meng APRN DIRECTOR CLINICAL OPERATIONS Assigned PCP 10/07/23 11/04/23 Mariel Galindo APRN DIRECTOR CLINICAL OPERATIONS Assigned PCP 11/05/23 12/03/23 Mariel Galindo APRN DIRECTOR CLINICAL OPERATIONS Assigned PCP 12/04/23 01/03/24 Deja Mendez PA-C [address] [place] [address] Assigned PCP 01/04/24 documented as of this encounter
--- OUTSIDE RECORDS SUMMARY | 2024-04-11 14:12 | XMS_ITS | Encounter Summary ---
Author Organization [facility] Address [address] [place] [address]. [place] [address] Care Team Providers Care Public Health Specialist Name Role Phone Mariel Galindo APRN ROCK DRILL OPERATOR Primary Care Provi adam Unavailable Mateo, Mariel Stout APRN ROCK DRILL OPERATOR Unavailable Un available Samia Silverman MD Unavailable [phone] No Ref-Primary, Physician Primary Care Provider Mateo, Mariel Stout APRN ROCK DRILL OPERATOR Unavailable Un available Nadege Jones APRN ROCK DRILL OPERATOR Unavailable Unavail able Mateo, Mariel Stout APRN ROCK DRILL OPERATOR Unavailable Un available Nadege Jones APRN ROCK DRILL OPERATOR Unavailable Unavail able Mateo, Mariel Stout APRN ROCK DRILL OPERATOR Unavailable Un available Mateo, Mariel Stout APRN ROCK DRILL OPERATOR Unavailable Un available Mateo, Mariel Stout APRN ROCK DRILL OPERATOR Unavailable Un available Deja Menedz PA-C Unavailable [phone] Reason for Visit * Reason Onset Date Comments Refill Request 06/20/2019 [place] Encounter Details Date Type Department Care Team (Late st Contact Info) Description 06/20/2019 MyC Refill [address] [phone] Mariel Galindo APRN CNP Refill Request ([place]) [...] Drug not on the G refill protocol TILE PROFESSIONAL: 1.31.19 Annual Controlled substance agreement: 12.31.16 Annual [...] SHOULD BE DELETED.) [facility] Office Visit with [facility] primary care provider: 10/24/2018-Mariel Galindo Future Office [...] consultation, please call . Analysis performed by [facility], [employer] [place] [address] , No results found for: COMDAT, No results found for: THC13, PCP13, COC13, MAMP13, OPI13, AMP13, BZO13, TCA13, MTD13, BAR13, OXY13, PPX13, BUP13 Processing: Send Electronically to pharmacy [email or web address] TILE PROFESSIONAL checked in past 3 months? No, route to RN documented in this encounter Plan of Treatment Not on file documented as of this encounter Visit Diagnoses Diagnosis ADHD (attention deficit hyperactivity disorder), combined type Attention deficit disorder with hyperactivity documented in this encounter Additional Health Concerns Assessment Noted Time PHQ-9 Depression Total Score: 13 019 7:06 AM HAIR BALER documented as of this encounter Care Teams Public Health Specialist Relationship Specialty Start Date End Date Mariel Galindo APRN ROCK DRILL OPERATOR PCP - General Nurse Practitioner 08/13/14 06/08/22 No Ref-Primary, Physician PCP - General 06/09/22 06/02/23 Mariel Galindo APRN ROCK DRILL OPERATOR Assigned PCP 10/21/14 04/10/22 Samia Silverman MD [address] [place] [address] Assigned OBGYN Provider 08/04/20 Mariel Galindo APRN ROCK DRILL OPERATOR Assigned PCP 06/27/22 01/08/23 Nadege Jones APRN ROCK DRILL OPERATOR Assigned PCP 01/09/23 01/15/23 Mariel Galindo APRN ROCK DRILL OPERATOR Assigned PCP 01/16/23 04/23/23 Nadege Jones APRN ROCK DRILL OPERATOR Assigned PCP 04/24/23 10/06/23 Mariel Galindo APRN ROCK DRILL OPERATOR Assigned PCP 10/07/23 11/04/23 Mariel Galindo APRN ROCK DRILL OPERATOR Assigned PCP 11/05/23 12/03/23 Mariel Galindo APRN ROCK DRILL OPERATOR Assigned PCP 12/04/23 01/03/24 Deja Mendez PA-C [address] [place] [address] Assigned PCP 01/04/24 documented as of this encounter
--- OUTSIDE RECORDS SUMMARY | 2024-04-11 14:12 | XMS_ITS | Encounter Summary ---
Author Organization [facility] Address [address] [place] [address] Care Team Providers Care Pump Tender Name Role Phone Mariel Galindo APRN CAR SALESPERSON Primary Care Provi adam Unavailable Mateo, Mariel Stout APRN CAR SALESPERSON Unavailable Un available Mateo, Mariel Stout APRN CAR SALESPERSON Unavailable Un available Samia Silverman MD Unavailable [phone] No Ref-Primary, Physician Primary Care Provider Mateo, Mariel Stout APRN CAR SALESPERSON Unavailable Un available Nadege Jones APRN CAR SALESPERSON Unavailable Unavail able Mateo, Mariel Stout APRN CAR SALESPERSON Unavailable Un available Nadege Jones APRN CAR SALESPERSON Unavailable Unavail able Mateo, Mariel Stout APRN CAR SALESPERSON Unavailable Un available Mateo, Mariel Stout APRN CAR SALESPERSON Unavailable Un available Mateo, Mariel Stout APRN CAR SALESPERSON Unavailable Un available Deja Mendez PA-C Unavailable [...] Depression Total Score: 12 017 7:21 AM QUALITY CONTROL CHEMIST documented as of this encounter Care Teams Pump Tender Relationship Specialty Start Date End Date Mariel Galindo APRN CNP PCP - General Nurse Practitioner 08/13/14 06/08/22 Mariel Galindo APRN CNP PCP - Assigned PCP 10/21/14 11/15/18 No Ref-Primary, Physician PCP - General 06/09/22 06/02/23 Mariel Galindo APRN CNP Assigned PCP 10/21/14 04/10/22 Samia Silverman MD [address] [place] [address] Assigned OBGYN Provider 08/04/20 Mariel Galindo APRN CNP Assigned PCP 06/27/22 01/08/23 Nadege Jones APRN CAR SALESPERSON Assigned PCP 01/09/23 01/15/23 Mariel Galindo APRN CNP Assigned PCP 01/16/23 04/23/23 Nadege Jones APRN CAR SALESPERSON Assigned PCP 04/24/23 10/06/23 Mariel Galindo APRN CNP Assigned PCP 10/07/23 11/04/23 Mariel Galindo APRN CNP Assigned PCP 11/05/23 12/03/23 Mariel Galindo APRN CNP Assigned PCP 12/04/23 01/03/24 Deja Mendez PA-C [address] [place] [address] Assigned PCP 01/04/24 documented as of this encounter
== END 2024-04-11 14:05 | disposition home or self-care (01) ==
PROVIDERS: Visit Provider Midwife
DX: Z34.91 Encounter for supervision of normal pregnancy, unspecified, first trimester (principal); Z3A.11 11 weeks gestation of pregnancy
CPT/HCPCS: 76801; 84443; 86592; 86703; 86704; 86706; 86762; 86787; 86803; 86850; 86900; 86901; 87086; 87340; 87491; 87591

== ENCOUNTER 2024-06-06 14:45 | Outpatient (CLI) | payer OTHER, SELFPAY ==
--- OUTSIDE RECORDS SUMMARY | 2024-06-06 14:52 | XMS_ITS | Encounter Summary ---
Author Organization [facility] Address [address] [place] [address] Care Team Providers Care Process Development Technician Name Role Phone No Ref-Primary, Physician Primary Care Provider Mateo, Mariel Stout APRN THERAPY AIDE Unavailable Un available Nadege Jones APRN THERAPY AIDE Unavailable Mateo, Mariel Stout APRN THERAPY AIDE Unavailable Un available Maeto, Mariel Stout APRN THERAPY AIDE Unavailable Un available Mateo, Mariel Stout APRN THERAPY AIDE Unavailable Un available Deja Mendez PA-C Unavailable [phone] Reason for Visit * Reason Onset Date Comments Refill Request 02/18/2023 Encounter Details Date Type Department Care Team (Late st Contact Info) Description 02/18/2023 MyC Refill [facility] [address] [place] [phone] Tamra Chavez PA-C [address] [place] [address] Refill Request Social History Tobacco Use Types Packs/Day Years Used Date Smoking Tobacco: Never Smokeless Tobacco: Never Alcohol Use Standard Drinks/Week Comments Yes 0 (1 standard drink = 0.6 oz pur e alcohol) wine occasionally PHQ-2 Answer Date Recorded PHQ-2 Total Score (Adult) - Positive if 3 or more points; Administer PHQ-9 if positive 2 02/18/2023 [place] Depression Scale Answer Date Recorded [place] Depression Score 16 12/04/2020 Last EPDS Self [...] documented as of this encounter Care Teams Process Development Technician Relationship Specialty Start Date End Date No Ref-Primary, Physician PCP - General 06/09/22 06/02/23 Mariel Galindo APRN THERAPY AIDE Assigned PCP 01/16/23 04/23/23 Nadege Jones APRN THERAPY AIDE [address] [place] [phone] Assigned PCP 04/24/23 10/06/23 Mairel Galindo APRN THERAPY AIDE Assigned PCP 10/07/23 11/04/23 Mariel Galindo APRN THERAPY AIDE Assigned PCP 11/05/23 12/03/23 Mariel Galindo APRN THERAPY AIDE Assigned PCP 12/04/23 01/03/24 Deja Mendez PA-C [address] [place] [phone] Assigned PCP 01/04/24 documented as of this encounter
--- OUTSIDE RECORDS SUMMARY | 2024-06-06 14:52 | XMS_ITS | Encounter Summary ---
Author Organization [facility] Address [address] [place] [address]. [place] [address] Care Team Providers Care Panama Hat Hydraulic Press Operator Name Role Phone No Ref-Primary, Physician Primary Care Provider MateoMariel INSIDE TECHNICAL SALES REPRESENTATIVE PHILOSOPHY FACULTY MEMBER Unavailable Un available Nadege Jones APRN PHILOSOPHY FACULTY MEMBER Unavailable MateoMariel APRN PHILOSOPHY FACULTY MEMBER Unavailable Un available MateoMariel APRN PHILOSOPHY FACULTY MEMBER Unavailable Un available MateoMariel APRN PHILOSOPHY FACULTY MEMBER Unavailable Un available Deja Mendez PA-C Unavailable [phone] Encounter Details Date Type Department Care Team (Late st Contact Info) Description 04/16/2023 MyC Medical Advice [facility] [address] [place] [address] Kimberly Montanez, PYTHON CONSULTANT Social History Tobacco Use Types Packs/Day Years [...] declined 04/20/2023 How often do you attend quaker or sikh serv ices? Never 04/20/2023 Do you belong to any clubs o r organizations such as quaker groups, unions, fraternal or athletic groups, or [...] when you are drinking? 1 or 2 Q3: How often do you have si x or more drinks on one occasion? Never 04/20/2023 Overall Financial Resource Strain (CARDIA) Answe r Date Recorded How hard is it for you to pa y for the very basics like food, housing, medical care, and heating? Not very hard 04/20/2023 PHQ-2 Answer Date Recorded PHQ-2 Score 4 04/20/2023 [facility] - Occupational Stress [...] place to sleep or slept in a penitentiary (including now)? No 04/20/2023 [place] Depression Scale Answer Date Recorded [place] Depression Score 16 12/04/2020 Last EPDS Self [...] documented as of this encounter Care Teams Panama Hat Hydraulic Press Operator Relationship Specialty Start Date End Date No Ref-Primary, Physician PCP - General 06/09/22 06/02/23 Mariel Galindo APRN PHILOSOPHY FACULTY MEMBER Assigned PCP 01/16/23 04/23/23 Nadege Jones APRN PHILOSOPHY FACULTY MEMBER [address] [place] [address] Assigned PCP 04/24/23 10/06/23 Mariel Galindo APRN CNP Assigned PCP 10/07/23 11/04/23 Mariel Galindo APRN PHILOSOPHY FACULTY MEMBER Assigned PCP 11/05/23 12/03/23 Mariel Galindo APRN PHILOSOPHY FACULTY MEMBER Assigned PCP 12/04/23 01/03/24 Deja Mendez PA-C [address] [place] [phone] Assigned PCP 01/04/24 documented as of this encounter
--- OUTSIDE RECORDS SUMMARY | 2024-06-06 14:52 | XMS_ITS | Encounter Summary ---
Author Organization [facility] Address [address] [place] [address]. [place] [address] Care Team Providers Care Malt House Supervisor Name Role Phone Mateo, Mariel Stout FISHER TROT LINE GRID TRIMMER Primary Care Provi adam Unavailable Mateo, Mariel Stout FISHER TROT LINE GRID TRIMMER Unavailable Un available Samia Silverman MD Unavailable No Ref-Primary, Physician Primary Care Provider Mateo, Mariel Stout FISHER TROT LINE GRID TRIMMER Unavailable Un available Nadege Jones APRN GRID TRIMMER Unavailable [phone] Mateo, Mariel Stout FISHER TROT LINE GRID TRIMMER Unavailable Un available Nadege Jones APRN GRID TRIMMER Unavailable [phone] Mateo, Mariel Stout APRN GRID TRIMMER Unavailable Un available Mateo, Mariel Stout APRN GRID TRIMMER Unavailable Un available Mateo, Mariel Stout FISHER TROT LINE GRID TRIMMER Unavailable Un available Deja Mendez PA-C Unavailable [phone] Encounter Details Date Type Department Care Team (Late st Contact Info) Description 03/03/2021 [facility] [place] [address] [place] [address] Sheyla Cespedes, FINANCIAL SERVICES ASSISTANT Social History Tobacco Use Types Packs/Day Years Used Date Smoking Tobacco: Never Smokeless Tobacco: Never Alcohol Use Standard Drinks/Week Comments Not Currently 0 (1 standard drink = 0.6 oz pur e alcohol) wine occasionally PHQ-2 Answer Date Recorded PHQ-2 Total Score (Adult) - Positive if 3 or more points; Administer PHQ-9 if positive 0 03/06/2021 [place] Depression Scale Answer Date Recorded [place] Depression Score 16 12/04/2020 Last EPDS Self [...] documented as of this encounter Care Teams Malt House Supervisor Relationship Specialty Start Date End Date Mariel Galindo APRN CNP PCP - General Nurse Practitioner 08/13/14 06/08/22 No Ref-Primary, Physician PCP - General 06/09/22 06/02/23 Mariel Galindo APRN GRID TRIMMER Assigned PCP 10/21/14 04/10/22 Samia Silverman MD [address] [place], [place] [address] Assigned OBGYN Provider 08/04/20 Mariel Galindo APRN GRID TRIMMER Assigned PCP 06/27/22 01/08/23 Nadege Jones APRN GRID TRIMMER [address] [place] [address] Assigned PCP 01/09/23 01/15/23 Mariel Galindo APRN GRID TRIMMER Assigned PCP 01/16/23 04/23/23 Nadege Jones APRN GRID TRIMMER [address] [place] [phone] Assigned PCP 04/24/23 10/06/23 Mateo, Mariel Stout APRN GRID TRIMMER Assigned PCP 10/07/23 11/04/23 Mateo, Mariel Stout APRN GRID TRIMMER Assigned PCP 11/05/23 12/03/23 Mateo, Mariel Stout APRN GRID TRIMMER Assigned PCP 12/04/23 01/03/24 Deja Mendez PA-C [address] [place] [address] Assigned PCP 01/04/24 documented as of this encounter
--- OUTSIDE RECORDS SUMMARY | 2024-06-06 14:52 | XMS_ITS | Encounter Summary ---
Author Organization [facility] [place] Address [address] [place] [address] Care Team Providers Care Electronics Teacher Name Role Phone Mariel Galindo APRN, CNP Primary Care Provi adam Unavailable Mateo, Mariel Stout APRN MECHANICAL SUPERVISOR Unavailable Un available Samia Silverman MD Unavailable [phone] No Ref-Primary, Physician Primary Care Provider Mateo, Mariel Stout APRN MECHANICAL SUPERVISOR Unavailable Un available Nadege Jones APRN MECHANICAL SUPERVISOR Unavailable Mateo, Mariel Stout APRN MECHANICAL SUPERVISOR Unavailable Un available Nadege Jones APRN MECHANICAL SUPERVISOR Unavailable Mateo, Mariel Stout APRN MECHANICAL SUPERVISOR Unavailable Un available Mateo, Mariel Stout APRN MECHANICAL SUPERVISOR Unavailable Un available Mateo, Mariel Stout APRN MECHANICAL SUPERVISOR Unavailable Un available Deja Mendez PA-C Unavailable [phone] Reason for Visit * Reason Onset Date Comments Refill Request 10/09/2021 Encounter Details Date Type Department Care Team (Late st Contact Info) Description 10/09/2021 [facility] [address] [phone] Mariel Galindo APRN CNP Refill Request Social History Tobacco Use Types Packs/Day Years Used Date Smoking Tobacco: Never Smokeless Tobacco: Never Alcohol Use Standard Drinks/Week Comments Not Currently 0 (1 standard drink = 0.6 oz pur e alcohol) wine occasionally PHQ-2 Answer Date Recorded PHQ-2 Total Score (Adult) - Positive if 3 or more points; Administer PHQ-9 if positive 2 07/09/2021 [place] Depression Scale Answer Date Recorded [place] Depression Score 16 12/04/2020 Last EPDS Self [...] Pedersen RN on 10/09/2021 at 8:54 AM ON BREEDER documented in this encounter Plan of Treatment Not on file documented as of this encounter Visit Diagnoses Diagnosis ADHD (attention deficit hyperactivity disorder), combined type Attention deficit disorder with hyperactivity documented in this encounter Additional Health Concerns Assessment Noted Time PHQ-9 Depression Total Score: 12 021 7:02 AM CDT documented as of this encounter Care Teams Electronics Teacher Relationship Specialty Start Date End Date Mariel Galindo APRN MECHANICAL SUPERVISOR PCP - General Nurse Practitioner 08/13/14 06/08/22 No Ref-Primary, Physician PCP - General 06/09/22 06/02/23 Mariel Galindo APRN MECHANICAL SUPERVISOR Assigned PCP 10/21/14 04/10/22 Samia Silverman MD [address] [address] Assigned OBGYN Provider 08/04/20 Mateo, Mariel Stout APRN MECHANICAL SUPERVISOR Assigned PCP 06/27/22 01/08/23 Nadege Jones APRN MECHANICAL SUPERVISOR [address] [place], [place] [phone] Assigned PCP 01/09/23 01/15/23 Mateo, Mariel Stout APRN MECHANICAL SUPERVISOR Assigned PCP 01/16/23 04/23/23 Nadege Jones APRN MECHANICAL SUPERVISOR [address] [place], [place] [phone] Assigned PCP 04/24/23 10/06/23 Mateo, Mariel Stout APRN MECHANICAL SUPERVISOR Assigned PCP 10/07/23 11/04/23 Mateo, Mariel Stout APRN MECHANICAL SUPERVISOR Assigned PCP 11/05/23 12/03/23 Mateo, Mariel Stout APRN MECHANICAL SUPERVISOR Assigned PCP 12/04/23 01/03/24 Deja Mendez PA-C [id number] [place] [address] Assigned PCP 01/04/24 documented as of this encounter
--- OUTSIDE RECORDS SUMMARY | 2024-06-06 14:52 | XMS_ITS | Encounter Summary ---
Author Organization [facility] Address [address] [place] [address] Care Team Providers Care Personal Computer Network Engineer Name Role Phone Mariel Galindo APRN, CNP Primary Care Provi adam Unavailable Mateo, Mariel Stout APRN NURSING PROJECT COORDINATOR Unavailable Un available Samia Silverman MD Unavailable [phone] No Ref-Primary, Physician Primary Care Provider Mateo, Mariel Stout APRN NURSING PROJECT COORDINATOR Unavailable Un available Nadege Jones APRN NURSING PROJECT COORDINATOR Unavailable Mateo, Mariel Stout APRN NURSING PROJECT COORDINATOR Unavailable Un available Nadege Jones APRN NURSING PROJECT COORDINATOR Unavailable [phone] Mateo, Mariel Stout APRN NURSING PROJECT COORDINATOR Unavailable Un available Mateo, Mariel Stout APRN NURSING PROJECT COORDINATOR Unavailable Un available Mateo, Mariel Stout APRN NURSING PROJECT COORDINATOR Unavailable Un available Deja Mendez PA-C Unavailable [phone] Reason for Visit * Reason Onset Date Comments Refill Request 03/06/2021 Encounter Details Date Type Department Care Team (Late st Contact Info) Description 03/06/2021 [facility] [address] [phone] Mariel Galindo APRN CNP Refill Request Social History Tobacco Use Types Packs/Day Years Used Date Smoking Tobacco: Never Smokeless Tobacco: Never Alcohol Use Standard Drinks/Week Comments Not Currently 0 (1 standard drink = 0.6 oz pur e alcohol) wine occasionally PHQ-2 Answer Date Recorded PHQ-2 Total Score (Adult) - Positive if 3 or more points; Administer PHQ-9 if positive 0 03/06/2021 [place] Depression Scale Answer Date Recorded [place] Depression Score 16 12/04/2020 Last EPDS Self [...] for review/approval because: Drug not on the [facility] refill protocol Failing PHQ9 Trish Salvador RN documented in this encounter Plan of Treatment Not on file documented as of this encounter Visit Diagnoses Diagnosis Moderate major depression Major depressive disorder, single episode, moderate ADHD (attention deficit hyperactivity disorder), combined type Attention deficit disorder with hyperactivity documented in this encounter Additional Health Concerns Assessment Noted Time PHQ-9 Depression Total Score: 10 021 7:04 AM CDT documented as of this encounter Care Teams Personal Computer Network Engineer Relationship Specialty Start Date End Date Mariel Galindo APRN CNP PCP - General Nurse Practitioner 08/13/14 06/08/22 No Ref-Primary, Physician PCP - General 06/09/22 06/02/23 Mariel Galindo APRN NURSING PROJECT COORDINATOR Assigned PCP 10/21/14 04/10/22 Samia Silverman MD [address] [place] [address] Assigned OBGYN Provider 08/04/20 Mateo, Mariel Stout APRN NURSING PROJECT COORDINATOR Assigned PCP 06/27/22 01/08/23 Nadege Jones APRN NURSING PROJECT COORDINATOR [address] [place] [phone] Assigned PCP 01/09/23 01/15/23 Mateo, Mariel Stout APRN NURSING PROJECT COORDINATOR Assigned PCP 01/16/23 04/23/23 Nadege Jones APRN NURSING PROJECT COORDINATOR [address] [facility] [place] [phone] Assigned PCP 04/24/23 10/06/23 Mateo, Mariel Stout APRN NURSING PROJECT COORDINATOR Assigned PCP 10/07/23 11/04/23 Mateo, Mariel Stout APRN NURSING PROJECT COORDINATOR Assigned PCP 11/05/23 12/03/23 Mateo, Mariel Stout APRN NURSING PROJECT COORDINATOR Assigned PCP 12/04/23 01/03/24 Deja Mendez PA-C [address] [place] [address] Assigned PCP 01/04/24 documented as of this encounter
--- OUTSIDE RECORDS SUMMARY | 2024-06-06 14:52 | XMS_ITS | Encounter Summary ---
Author Organization [facility] Address [address] [place] [address] Care Team Providers Care Switch House Operator Name Role Phone No Ref-Primary, Physician Primary Care Provider MateoMariel MOTION PICTURE PROJECTIONIST ADVICE LINE RN Unavailable Un available Nadege Jones APRN ADVICE LINE RN Unavailable MateoMariel MOTION PICTURE PROJECTIONIST ADVICE LINE RN Unavailable Un available MateoMariel APRN ADVICE LINE RN Unavailable Un available MateoMariel APRN ADVICE LINE RN Unavailable Un available Deja Mendez PA-C Unavailable [phone] Encounter Details Date Type Department Care Team (Late st Contact Info) Description 01/25/[address] [facility] [address] [place] [phone] Kimberly Montanez, CATTLE SORTER Social History Tobacco Use Types Packs/Day Years Used Date Smoking Tobacco: Never Smokeless Tobacco: Never Alcohol Use Standard Drinks/Week Comments Yes 0 (1 standard drink = 0.6 oz pur e alcohol) wine occasionally PHQ-2 Answer Date Recorded PHQ-2 Total Score (Adult) - Positive if 3 or more points; Administer PHQ-9 if positive 2 11/24/2022 [place] Depression Scale Answer Date Recorded [place] Depression Score 16 12/04/2020 Last EPDS Self [...] documented as of this encounter Care Teams Switch House Operator Relationship Specialty Start Date End Date No Ref-Primary, Physician PCP - General 06/09/22 06/02/23 Mariel Galindo APRN ADVICE LINE RN Assigned PCP 01/16/23 04/23/23 Nadege Jones APRN ADVICE LINE RN [address] [place] [phone] Assigned PCP 04/24/23 10/06/23 MateoMariel meng APRN ADVICE LINE RN Assigned PCP 10/07/23 11/04/23 Mariel Galindo APRN ADVICE LINE RN Assigned PCP 11/05/23 12/03/23 MateoMariel meng APRN ADVICE LINE RN Assigned PCP 12/04/23 01/03/24 Deja Mendez PA-C [address] [facility] [place] [address] Assigned PCP 01/04/24 documented as of this encounter
--- OUTSIDE RECORDS SUMMARY | 2024-06-06 14:52 | XMS_ITS | Encounter Summary ---
Author Organization [facility] Address [address] [place] [address] Care Team Providers Care Sock Boarder Name Role Phone Mariel Galindo APRN, CNP Primary Care Provi adam Unavailable Maeto, Mariel Stout APRN INSURANCE OPERATIONS REP Unavailable Un available Samia Silverman MD Unavailable [phone] No Ref-Primary, Physician Primary Care Provider Mateo, Mariel Stout APRN INSURANCE OPERATIONS REP Unavailable Un available Nadege Jones APRN INSURANCE OPERATIONS REP Unavailable [phone] Mateo, Mariel Stout APRN INSURANCE OPERATIONS REP Unavailable Un available Nadege Jones APRN INSURANCE OPERATIONS REP Unavailable Mateo, Mariel Stout APRN INSURANCE OPERATIONS REP Unavailable Un available Mateo, Mariel Stout APRN INSURANCE OPERATIONS REP Unavailable Un available MateoMariel APRN INSURANCE OPERATIONS REP Unavailable Un available Deja Mendez PA-C Unavailable [phone] Reason for Visit * Reason Onset Date Comments Refill Request 07/07/2021 Encounter Details Date Type Department Care Team (Late st Contact Info) Description 07/07/2021 Radha [facility] [address] [phone] Mariel Galindo APRN CNP Refill Request Social History Tobacco Use Types Packs/Day Years Used Date Smoking Tobacco: Never Smokeless Tobacco: Never Alcohol Use Standard Drinks/Week Comments Not Currently 0 (1 standard drink = 0.6 oz pur e alcohol) wine occasionally PHQ-2 Answer Date Recorded PHQ-2 Total Score (Adult) - Positive if 3 or more points; Administer PHQ-9 if positive 2 07/09/2021 [place] Depression Scale Answer Date Recorded [place] Depression Score 16 12/04/2020 Last EPDS Self [...] documented as of this encounter Care Teams Sock Boarder Relationship Specialty Start Date End Date Mariel Galindo APRN INSURANCE OPERATIONS REP PCP - General Nurse Practitioner 08/13/14 06/08/22 No Ref-Primary, Physician PCP - General 06/09/22 06/02/23 Mariel Galindo APRN INSURANCE OPERATIONS REP Assigned PCP 10/21/14 04/10/22 Samia Silverman MD [address] [place] [address] Assigned OBGYN Provider 08/04/20 Mariel Galindo APRN INSURANCE OPERATIONS REP Assigned PCP 06/27/22 01/08/23 Nadege Jones APRN INSURANCE OPERATIONS REP [address] [facility] [address] Assigned PCP 01/09/23 01/15/23 MateoMariel meng APRN INSURANCE OPERATIONS REP Assigned PCP 01/16/23 04/23/23 Nadege Jones APRN INSURANCE OPERATIONS REP [address] [place] [address] Assigned PCP 04/24/23 10/06/23 MateoMariel meng APRN INSURANCE OPERATIONS REP Assigned PCP 10/07/23 11/04/23 Mariel Galindo APRN INSURANCE OPERATIONS REP Assigned PCP 11/05/23 12/03/23 Mariel Galindo APRN INSURANCE OPERATIONS REP Assigned PCP 12/04/23 01/03/24 Deja Mendez PA-C [address] [place] [phone] Assigned PCP 01/04/24 documented as of this encounter
--- OUTSIDE RECORDS SUMMARY | 2024-06-06 14:52 | XMS_ITS | Encounter Summary ---
Author Organization [facility] Address [address] [place] [address] Care Team Providers Care Dog Trainer Name Role Phone Mariel Galindo APRN, CNP Primary Care Provi adam Unavailable Mateo, Mareil Stout APRN INDUSTRIAL TECHNOLOGY EDUCATION TEACHER Unavailable Un available Samia Silverman MD Unavailable [phone] No Ref-Primary, Physician Primary Care Provider Mateo, Mariel Stout APRN INDUSTRIAL TECHNOLOGY EDUCATION TEACHER Unavailable Un available Nadege Jones APRN INDUSTRIAL TECHNOLOGY EDUCATION TEACHER Unavailable [phone] Mateo, Mariel Stout APRN INDUSTRIAL TECHNOLOGY EDUCATION TEACHER Unavailable Un available Nadege Jones APRN INDUSTRIAL TECHNOLOGY EDUCATION TEACHER Unavailable Mateo, Mariel Stout APRN INDUSTRIAL TECHNOLOGY EDUCATION TEACHER Unavailable Un available Mateo, Mariel Stout APRN INDUSTRIAL TECHNOLOGY EDUCATION TEACHER Unavailable Un available MateoMariel APRN INDUSTRIAL TECHNOLOGY EDUCATION TEACHER Unavailable Un available Deja Mendez PA-C Unavailable Reason for Visit * Reason Onset Date Comments Refill Request 06/06/2021 Encounter Details Date Type Department Care Team (Late st Contact Info) Description 06/06/2021 Radha Tyler [facility] [address] [phone] Mariel Galindo APRN CNP Refill Request Social History Tobacco Use Types Packs/Day Years Used Date Smoking Tobacco: Never Smokeless Tobacco: Never Alcohol Use Standard Drinks/Week Comments Not Currently 0 (1 standard drink = 0.6 oz pur e alcohol) wine occasionally PHQ-2 Answer Date Recorded PHQ-2 Total Score (Adult) - Positive if 3 or more points; Administer PHQ-9 if positive 0 04/07/2021 [place] Depression Scale Answer Date Recorded [place] Depression Score 16 12/04/2020 Last EPDS Self [...] documented as of this encounter Care Teams Dog Trainer Relationship Specialty Start Date End Date Mariel Galindo APRN INDUSTRIAL TECHNOLOGY EDUCATION TEACHER PCP - General Nurse Practitioner 08/13/14 06/08/22 No Ref-Primary, Physician PCP - General 06/09/22 06/02/23 Mariel Galindo APRN INDUSTRIAL TECHNOLOGY EDUCATION TEACHER Assigned PCP 10/21/14 04/10/22 Samia Silverman MD [address] [address] Assigned OBGYN Provider 08/04/20 Mateo, Mariel Stout APRN INDUSTRIAL TECHNOLOGY EDUCATION TEACHER Assigned PCP 06/27/22 01/08/23 Nadege Jones APRN INDUSTRIAL TECHNOLOGY EDUCATION TEACHER [address], [place] [phone] Assigned PCP 01/09/23 01/15/23 Mateo, Mariel Stout APRN INDUSTRIAL TECHNOLOGY EDUCATION TEACHER Assigned PCP 01/16/23 04/23/23 Nadege Jones APRN INDUSTRIAL TECHNOLOGY EDUCATION TEACHER [address], [place] [phone] Assigned PCP 04/24/23 10/06/23 Mateo, Mariel Stout APRN INDUSTRIAL TECHNOLOGY EDUCATION TEACHER Assigned PCP 10/07/23 11/04/23 Mateo, Mariel Stout APRN INDUSTRIAL TECHNOLOGY EDUCATION TEACHER Assigned PCP 11/05/23 12/03/23 Mateo, Mariel Stout APRN INDUSTRIAL TECHNOLOGY EDUCATION TEACHER Assigned PCP 12/04/23 01/03/24 Deja Mendez PA-C [address] [place] [address] Assigned PCP 01/04/24 documented as of this encounter
--- OUTSIDE RECORDS SUMMARY | 2024-06-06 14:52 | XMS_ITS | Clinical Summary ---
Author Organization [facility] Address [address] [place] [address] Care Team Providers Care Seed Expert Name Role Phone AndreaLesleyDejaoriana Tyler PA-C Unavailable [phone] Allergies No known active allergies Medications Medication Sig Dispensed Refills Start Date End Date Status hydrOXYzine (ATARAX) 25 MG tabletIndications:An xiety Take 0.5-1 tablets (12.5-25 mg) by mouth 3 times daily as needed for anxiety 30 tablet 11/24/2022 Active Additional Information Patient not taking.Reported on 12/14/2023 FLUoxetine (PROZAC) 40 MG capsuleIndications:M oderate major depression Take 1 capsule (40 mg) by mouth daily 90 capsule 1 04/20/2023 Active ADDERALL XR 10 MG 24 hr capsuleIndications:A DHD (attention deficit hyperactivity disorder), combined type TAKE ONE CAPSULE BY MOUTH ONCE DAILY 30 capsule 10/01/2023 Active ADDERALL XR 30 MG 24 hr capsuleIndications:A DHD (attention deficit hyperactivity disorder), combined type TAKE ONE CAPSULE BY MOUTH ONCE DAILY 30 capsule 10/01/2023 Active amphetamine-dextroam phetamine (ADDERALL XR) 10 MG 24 hr capsuleIndications:A DHD (attention deficit hyperactivity disorder), combined type Take 1 capsule (10 mg) by mouth daily 30 capsule 12/10/2023 Active amphetamine-dextroam phetamine (ADDERALL XR) 30 MG 24 hr capsuleIndications:A DHD (attention deficit hyperactivity disorder), combined type Take 1 capsule (30 mg) by mouth daily 30 capsule 12/10/2023 Active levothyroxine (SYNTHROID/LEVOTHROI D) 25 MCG tabletIndications:Hy pothyroidism, unspecified type Take 1 tablet (25 mcg) by mouth daily 90 tablet 1 12/14/2023 Active citalopram (CELEXA) 10 MG tabletIndications:Mo derate major depression,Anxiety Take 1 tablet (10 mg) by mouth daily 30 tablet 02/11/2024 Active Active Problems Problem Noted Date Diagnosed Date Controlled substance agreement signed 11/24/2022 Cervical high risk HPV (human papillomavirus) te st positive 03/15/2018 Overview: Hx of LSIL in 2014, no record of colposcopy. 03/15/18 NIL, +HR HPV, not 16/18. Plan colp 10/06/18 Patient is lost to pap tracking follow-up. 07/28/19 NIL, +HR HPV, not 16/18. Plan [place] 06/11/20 Patient is lost to pap tracking [...] Neuropsych evaluation for ADD completed: UNKNOWN Last [employer] website verification: 06/28/19 [email or web address] Assessment & Plan: Patient is followed by MARIEL GALINDO for ongoing prescription of stimulants. All refills should be approved by this provider, or covering partner. Medication(s): amphetamine-dextroamphetamine (ADDERALL XR) 30 MG per 24 hr capsule. Maximum quantity per month: 30 Clinic visit frequency required: Q 6 months Controlled substance agreement on file: No Neuropsych evaluation for ADD completed: No Last [employer] website verification: done on 05.10.17 [email or web address] ID/ [email or web address] SCREENING; LDL GOAL LESS THAN 160 [...] declined 04/20/2023 How often do you attend mandaeism or jainism serv ices? Never 04/20/2023 Do you belong to any clubs o r organizations such as mandaeism groups, unions, fraternal or athletic groups, or [...] Answer Date Recorded PHQ-2 Score 3 12/14/2023 [facility] Occupat ional Health - Occupational Stress [...] place to sleep or slept in a skilled nursing (including now)? No 04/20/2023 [place] Depression Scale Answer Date Recorded [place] Depression Score 16 12/04/2020 Last EPDS Self [...] 3-dose series) 2004 HPV FOLLOW-UP 11/21/2022 11/21/2021, 090 09/2019, 05/14/2020, Additional history exists PAP FOLLOW-UP 11/21/2022 11/21/2021, 090 09/2019, 05/14/2020, Additional history exists TSH W/FREE T4 REFLEX 11/25/2023 11/24/2022, 10/16/2021, 07/28/2019, Additional history exists YEARLY PREVENTIVE VISIT 04/20/2024 04/20/20 23, 11/21/2021, 03/15/2018 COVID-19 Vaccine ( season) 2024 INFLUENZA VACCINE (#1) 2024 07/28/2019, 2017 PHQ-9 [...] 06/19/2015, Additional history exists PAP Discontinued 11/21/2021, 0909/2019, 05/14/2020, Additional history exists HEPATITIS C SCREENING [...] TYPES DNA CERVICAL Routine 11/21/2021 8:09 AM MEDICAL COLLECTIONS SPECIALIST Cervical cancer screening GYNECOLOGIC CYTOLOGY Routine 11/21/2021 8:09 AM MEDICAL COLLECTIONS SPECIALIST Cervical cancer screening HIV ANTIGEN ANTIBODY [...] newborns, infants, and children. Nadege Jones APRN SENIOR NETWORK ADMINISTRATOR LAB - BLOOD PATRICIA MCCLE[facility]/PROT/ENDO [facility] Special[facility] Core/Prot/Endo [address] [facility], [address] [phone] * Basic metabolic panel (Ca, Cl, CO2, [...] CDT 04/20/2023 3:45 PM CDT Nadege Jones APRN, CNP LAB - BLOOD ORDE ELEUTERIO [facility] [place] [facility] [address] [facility], [address] [place] [address], [facility] [phone] * TSH WITH FREE T4 REFLEX (11/24/2022 11:06 AM CDT) TSH 1.31 0.30 - 4.20 uIU/mL 11/24/2022 5:51 PM CDT [facility] Blood BLOOD SPECIMEN / Unknown Venipuncture / Unknown 11/24/2022 11:06 AM CDT 11/24/2022 11:10 AM CDT Nadege Jones APRN, CNP LAB - BLOOD ORDE ELEUTERIO Performing Organization Address City/[facility]/ZIP Co de Phone Number [facility] [place] [facility] [address] [facility], [address] [address], [facility] [phone] * Pap Screen with HPV - recommended age 30 - 65 years (11/21/2021 8:09 AM MEDICAL COLLECTIONS SPECIALIST) Interpretation Negative for Intraepithelial Lesion or [...] component of this testing was completed at [facility] 11/25/2021 9:24 AM CDT SPECIALTY LABS Brushing CERVIX UTERI STRUCTURE / Unknown 11/21/2021 8:09 AM MEDICAL COLLECTIONS SPECIALIST 11/21/2021 8:24 AM MEDICAL COLLECTIONS SPECIALIST Mariel [facility] Specialty Lab [address] [facility], [address] [place] [address], [facility] [phone] * HPV High Risk Types DNA Cervical (11/21/2021 8:09 AM MEDICAL COLLECTIONS SPECIALIST) Other HR HPV Negative Negative 11/26/2021 2:10 PM CDT [facility] HPV16 DNA Negative Negative 11/26/2021 2:10 PM CDT [facility]AGNOST[facility] HPV18 DNA Negative Negative 11/26/2021 2:10 PM CDT [facility] DIAGNOSTICS FINAL DIAGNOSIS This patient's sample is negative for HPV DNA. This test was developed and its performance characteristics determined by the [facility], Molecular Diagnostics Laboratory. It has not [...] Non-blood Collection / Unknown 11/21/2021 8:09 AM MEDICAL COLLECTIONS SPECIALIST 11/25/2021 3:59 PM CDT Mariel Galindo RESEARCH SUBJECT SENIOR NETWORK ADMINISTRATOR LAB - BLOOD ORDERABLES [facility] Molecular Diagnostics [address] [facility], [address] [address], [facility] [phone] * HIV Antigen Antibody Combo (05/20/2016) HIV Antigen Antibody Combo Negative Blood specimen (specimen) Patient Reported LAB - BLOOD ORDERABL ES from Last 3 Months or Most Recently Relevant to Health Maintenance Care Teams Seed Expert Relationship Specialty Start Date End Date Deja Mendez PA-C [address] [place] [phone] Assigned PCP 01/04/24
--- OUTSIDE RECORDS SUMMARY | 2024-06-06 14:52 | XMS_ITS | Encounter Summary ---
Author Organization [place] Address [address] [place] [address]. [place] [address] Care Team Providers Care Solutions Sales Consultant Name Role Phone Mateo, Mariel Stout ORGANIZATIONAL CONSULTANT CLIENT STRATEGIST Primary Care Provi adam Unavailable Mateo, Mariel Stout APRN CLIENT STRATEGIST Unavailable Un available No Ref-Primary, Physician Primary Care Provider Mateo, Mariel Stout APRN CLIENT STRATEGIST Unavailable Un available Nadege Jones APRN CLIENT STRATEGIST Unavailable Mateo, Mariel Stout APRN CLIENT STRATEGIST Unavailable Un available Nadege Jones APRN CLIENT STRATEGIST Unavailable Mateo, Mariel Stout APRN CLIENT STRATEGIST Unavailable Un available Mateo, Mariel Stout APRN CLIENT STRATEGIST Unavailable Un available Matoe, Mariel Stout APRN CLIENT STRATEGIST Unavailable Un available Deja Mendez PA-C Unavailable [phone] Encounter Details Date Type Department Care Team (Late st Contact Info) Description 02/10/2022 [facility] [address] [place] [phone] Tamra Chavez PA-C [address] [place], [place] [phone] Social History Tobacco Use Types Packs/Day Years Used Date Smoking Tobacco: Never Smokeless Tobacco: Never Alcohol Use Standard Drinks/Week Comments Yes 0 (1 standard drink = 0.6 oz pur e alcohol) wine occasionally PHQ-2 Answer Date Recorded PHQ-2 Score 2 11/21/2021 [place] Depression Scale Answer Date Recorded [place] Depression Score 16 12/04/2020 Last EPDS Self [...] Depression Total Score: 13 022 7:03 AM REFINERY OPERATOR ASSISTANT documented as of this encounter Care Teams Solutions Sales Consultant Relationship Specialty Start Date End Date Mariel Galindo APRN CNP PCP - General Nurse Practitioner 08/13/14 06/08/22 No Ref-Primary, Physician PCP - General 06/09/22 06/02/23 Mariel Galindo APRN CNP Assigned PCP 10/21/14 04/10/22 Mariel Galindo APRN CLIENT STRATEGIST Assigned PCP 06/27/22 01/08/23 Nadege Jones APRN CLIENT STRATEGIST [address], [place] [address] Assigned PCP 01/09/23 01/15/23 Mariel Galindo APRN CNP Assigned PCP 01/16/23 04/23/23 Nadege Jones APRN CLIENT STRATEGIST [address] [place] [phone] Assigned PCP 04/24/23 10/06/23 Mateo, Mariel Stout APRN CLIENT STRATEGIST Assigned PCP 10/07/23 11/04/23 MateoMariel meng APRN CLIENT STRATEGIST Assigned PCP 11/05/23 12/03/23 Mateo, Mariel Stout APRN CLIENT STRATEGIST Assigned PCP 12/04/23 01/03/24 Deja Mendez PA-C [address] [place] [phone] Assigned PCP 01/04/24 documented as of this encounter
--- OUTSIDE RECORDS SUMMARY | 2024-06-06 14:52 | XMS_ITS | Encounter Summary ---
Author Organization [place] Address [address] [place] [address]. [place] [address] Care Team Providers Care Wire Wrapper Machine Operator Name Role Phone No Ref-Primary, Physician Primary Care Provider Mateo, Mariel Stout APRN CORN GROWER Unavailable Un available Nadege Jones APRN CORN GROWER Unavailable Mateo, Mariel Stout APRN CORN GROWER Unavailable Un available MateoMariel APRN CORN GROWER Unavailable Un available Mateo, Mariel Stout APRN CORN GROWER Unavailable Un available Deja Mendez PA-C Unavailable [phone] Reason for Visit * Reason Onset Date Comments Refill Request 02/18/2023 Encounter Details Date Type Department Care Team (Late st Contact Info) Description 02/18/2023 MyC Refill [facility] [id number] [place] [phone] Amanda Tolbert PA-C [address] [place] [address] Refill Request Social History Tobacco Use Types Packs/Day Years Used Date Smoking Tobacco: Never Smokeless Tobacco: Never Alcohol Use Standard Drinks/Week Comments Yes 0 (1 standard drink = 0.6 oz pur e alcohol) wine occasionally PHQ-2 Answer Date Recorded PHQ-2 Total Score (Adult) - Positive if 3 or more points; Administer PHQ-9 if positive 2 02/18/2023 [place] Depression Scale Answer Date Recorded [place] Depression Score 16 12/04/2020 Last EPDS Self [...] documented as of this encounter Care Teams Wire Wrapper Machine Operator Relationship Specialty Start Date End Date No Ref-Primary, Physician PCP - General 06/09/22 06/02/23 Mariel Galindo APRN CORN GROWER Assigned PCP 01/16/23 04/23/23 Nadege Jones APRN CORN GROWER [address] [place] [phone] Assigned PCP 04/24/23 10/06/23 Mariel Galindo APRN CORN GROWER Assigned PCP 10/07/23 11/04/23 Mariel Galindo APRN CORN GROWER Assigned PCP 11/05/23 12/03/23 Mariel Galindo APRN CORN GROWER Assigned PCP 12/04/23 01/03/24 Deja Mendez PA-C [address] [place] [phone] Assigned PCP 01/04/24 documented as of this encounter
--- OUTSIDE RECORDS SUMMARY | 2024-06-06 14:52 | XMS_ITS | Referral Summary ---
Author Organization [facility] Address [address] [place] [address] Care Team Providers Care Size Roller Operator Name Role Phone AndreaLesleyDejaoriana Tyler PA-C Unavailable [phone] Allergies No known active allergies Medications [...] 07/28/19 NIL, +HR HPV, not 16/18. Plan [place] 06/11/20 Patient is lost to pap tracking [...] Neuropsych evaluation for ADD completed: UNKNOWN Last Tribunat website verification: 06/28/19 [email or web address] Last Assessment & Plan: Patient is followed by MARIEL GALINDO for ongoing prescription of stimulants. All refills should be approved by this provider, or covering partner. Medication(s): amphetamine-dextroamphetamine (ADDERALL XR) 30 MG per 24 hr capsule. Maximum quantity per month: 30 Clinic visit frequency required: Q 6 months Controlled substance agreement on file: No Neuropsych evaluation for ADD completed: No Last Tribunat website verification: done on 05.10.17 [email or web address] [email or web address] SCREENING; LDL GOAL LESS THAN 160 [...] declined 04/20/2023 How often do you attend nondenominational or yazidism serv ices? Never 04/20/2023 Do you belong to any clubs o r organizations such as nondenominational groups, unions, fraternal or athletic groups, or [...] Answer Date Recorded PHQ-2 Score 3 12/14/2023 [facility] - Occupational Stress [...] place to sleep or slept in a alf (including now)? No 04/20/2023 [place] Depression Scale Answer Date Recorded [place] Depression Score 16 12/04/2020 Last EPDS Self [...] TYPES DNA CERVICAL Routine 11/21/2021 8:09 AM HIV CTS SPECIALIST Cervical cancer screening GYNECOLOGIC CYTOLOGY Routine 11/21/2021 8:09 AM HIV CTS SPECIALIST Cervical cancer screening HIV ANTIGEN ANTIBODY [...] for newborns, infants, and children. Nadege Jones APRN, CNP LAB - BLOOD PATRICIA MCCLELLAN [facility] CORE/PROT/ENDO [facility] Specialty Core/Prot/Endo [address] [facility] [address] [facility], Room [address] [place] [address], [facility] [phone] * Basic metabolic panel (Ca, Cl, CO2, [...] 04/20/2023 3:45 PM CDT Nadege Jones APRN ACCOUNT SOLUTIONS ANALYST LAB - BLOOD PATRICIA MCCLELLAN [facility] [place] Core Lab [address] [facility], [address] [place] [address], [facility] [phone] * TSH WITH FREE T4 REFLEX (11/24/2022 11:06 AM CDT) TSH 1.31 0.30 - 4.20 uIU/mL 11/24/2022 5:51 PM CDT [facility] Blood BLOOD SPECIMEN / Unknown Venipuncture / Unknown 11/24/2022 11:06 AM CDT 11/24/2022 11:10 AM CDT Nadege Jones APRN ACCOUNT SOLUTIONS ANALYST LAB - BLOOD PATRICIA MCCLELLAN [facility] [place] [facility] Lab [address] [facility] [address] Building, [address] [place] [address], [place] [phone] * Pap Screen with HPV - recommended age 30 - 65 years (11/21/2021 8:09 AM HIV CTS SPECIALIST) Interpretation Negative for Intraepithelial Lesion or [...] of this testing was completed at [facility] 11/25/2021 9:24 AM CDT SPECIALTY LABS Brushing CERVIX UTERI STRUCTURE / Unknown 11/21/2021 8:09 AM HIV CTS SPECIALIST 11/21/2021 8:24 AM HIV CTS SPECIALIST Mariel Galindo APRN ACCOUNT SOLUTIONS ANALYST LAB - [facility] Specialty Lab [address] [facility] [address] Building, [address] [place] [address], [place] [phone] * HPV High Risk Types DNA Cervical (11/21/2021 8:09 AM HIV CTS SPECIALIST) Other HR HPV Negative Negative 11/26/2021 2:10 PM CDT [facility] HPV16 DNA Negative Negative 11/26/2021 2:10 PM CDT [facility] HPV18 DNA Negative Negative 11/26/2021 2:10 PM CDT [facility] FINAL DIAGNOSIS This patient's sample is negative for HPV DNA. This test was developed and its performance characteristics determined by the [facility], Molecular Diagnostics Laboratory. It has not [...] followup is recommended. 11/26/2021 2:10 PM CDT [facility] Brushing CERVIX UTERI STRUCTURE / Unknown Non-blood Collection / Unknown 11/21/2021 8:09 AM HIV CTS SPECIALIST 11/25/2021 3:59 PM CDT Mariel Galindo APRN ACCOUNT SOLUTIONS ANALYST LAB - BLOOD ORDERABLES [facility] File[employer] Document Management software Diagnostics [address], [address] [place] [address], [facility] [phone] * HIV Antigen Antibody Combo (05/20/2016) HIV Antigen Antibody Combo Negative Blood specimen (specimen) Patient Reported LAB - BLOOD ORDERABL ES from Last 3 Months or Most Recently Relevant to Health Maintenance Care Teams Size Roller Operator Relationship Specialty Start Date End Date Deja Mendez PA-C [address] [place] [phone] Assigned PCP 01/04/24
--- OUTSIDE RECORDS SUMMARY | 2024-06-06 14:53 | XMS_ITS | Encounter Summary ---
Author Organization [place] Address [address] [place] [address] Care Team Providers Care Contract Management Specialist Name Role Phone MtaeoMariel meng APRN PLUSH WEAVER Primary Care Provi adam Unavailable Mateo, Mariel Stout APRN PLUSH WEAVER Unavailable Un available aSmia Silverman MD Unavailable [phone] No Ref-Primary, Physician Primary Care Provider Mateo, Mariel Stout APRN PLUSH WEAVER Unavailable Un available Nadege Jones APRN PLUSH WEAVER Unavailable [phone] Mateo, Mariel Stout APRN PLUSH WEAVER Unavailable Un available Nadege Jones APRN PLUSH WEAVER Unavailable [phone] Mateo, Mariel Stout APRN PLUSH WEAVER Unavailable Un available Mateo, Mariel Stout APRN PLUSH WEAVER Unavailable Un available MateoMariel APRN PLUSH WEAVER Unavailable Un available Deja Mendez PA-C Unavailable [phone] Encounter Details Date Type Department Care [...] documented as of this encounter Care Teams Contract Management Specialist Relationship Specialty Start Date End Date Mariel Galindo APRN CNP PCP - General Nurse Practitioner 08/13/14 06/08/22 No Ref-Primary, Physician PCP - General 06/09/22 06/02/23 Mariel Galindo APRN PLUSH WEAVER Assigned PCP 10/21/14 04/10/22 Samia Silverman MD [address] [address] Assigned OBGYN Provider 08/04/20 Mariel Galindo APRN PLUSH WEAVER Assigned PCP 06/27/22 01/08/23 Nadege Jones APRN PLUSH WEAVER [address] [place] [phone] Assigned PCP 01/09/23 01/15/23 Mariel Galindo APRN PLUSH WEAVER Assigned PCP 01/16/23 04/23/23 Nadege Jones APRN PLUSH WEAVER [address] [place] [phone] Assigned PCP 04/24/23 10/06/23 MateoMariel meng APRN PLUSH WEAVER Assigned PCP 10/07/23 11/04/23 MateoMariel APRN PLUSH WEAVER Assigned PCP 11/05/23 12/03/23 MateoMariel meng APRN PLUSH WEAVER Assigned PCP 12/04/23 01/03/24 Deja Mendez PA-C [address] [place] [address] Assigned PCP 01/04/24 documented as of this encounter
--- OUTSIDE RECORDS SUMMARY | 2024-06-06 14:53 | XMS_ITS | Encounter Summary ---
Author Organization [place] Address [address] [place] [address] Care Team Providers Care Cut Out And Marking Machine Operator Name Role Phone Mariel Galindo APRN MIRROR POLISHER Primary Care Provi adam Unavailable Mateo, Mariel Stout APRN MIRROR POLISHER Unavailable Un available Samia Silverman MD Unavailable [phone] No Ref-Primary, Physician Primary Care Provider Mateo, Mariel Stout APRN MIRROR POLISHER Unavailable Un available Nadege Jones APRN MIRROR POLISHER Unavailable Mateo, Mariel Stout APRN MIRROR POLISHER Unavailable Un available Nadege Jones APRN MIRROR POLISHER Unavailable Mateo, Mariel Stout APRN MIRROR POLISHER Unavailable Un available Mateo, Mariel Stout APRN MIRROR POLISHER Unavailable Un available Mateo, Mariel Stout APRN MIRROR POLISHER Unavailable Un available Deja Mendez PA-C Unavailable [phone] Reason for Visit * Reason Onset Date Comments Refill Request 06/20/2019 [place] Encounter Details Date Type Department Care Team ([facility] st Contact Info) Description 06/20/2019 MyC Refill M [address] [phone] Mariel Galindo APRN CNP Refill Request ([place]) Social History Tobacco Use Types Packs/Day Years [...] Miscellaneous Notes * Telephone Encounter - Mariel Galnido APRN CNP - 06/21/2019 9:13 PM CDT [...] Drug not on the G refill protocol RADIO REPAIRER DOMESTIC: 1.31.19 Annual Controlled substance agreement: 01.01.16 Annual drug screenin07.11.19 Michelle Whitley RN * [...] SHOULD BE DELETED.) Last Office Visit with [facility] primary care provider: 10/24/2018-Mariel Galindo Future Office [...] consultation, please call . Analysis performed by [facility], [email or web address] [place] [address] , No results found for: COMDAT, No results found for: THC13, PCP13, COC13, MAMP13, OPI13, AMP13, BZO13, TCA13, MTD13, BAR13, OXY13, PPX13, BUP13 Processing: Send Electronically to pharmacy [email or web address] RADIO REPAIRER DOMESTIC checked in past 3 months? No, route to RN documented in this encounter Plan of Treatment Not on file documented as of this encounter Visit Diagnoses Diagnosis ADHD (attention deficit hyperactivity disorder), combined type Attention deficit disorder with hyperactivity documented in this encounter Additional Health Concerns Assessment Noted Time PHQ-9 Depression Total Score: 13 019 7:06 AM SURGICAL INSTRUMENT MECHANIC documented as of this encounter Care Teams Cut Out And Marking Machine Operator Relationship Specialty Start Date End Date Mariel Galindo APRN MIRROR POLISHER PCP - General Nurse Practitioner 08/13/14 06/08/22 No Ref-Primary, Physician PCP - General 06/09/22 06/02/23 Mariel Galindo APRN MIRROR POLISHER Assigned PCP 10/21/14 04/10/22 Samia Silverman MD [address] [place] [address] Assigned OBGYN Provider 08/04/20 Mateo, Mariel Stout APRN MIRROR POLISHER Assigned PCP 06/27/22 01/08/23 Nadege Jones APRN MIRROR POLISHER [address] [place] [phone] Assigned PCP 01/09/23 01/15/23 Mateo, Mariel Sotut APRN MIRROR POLISHER Assigned PCP 01/16/23 04/23/23 Nadege Jones APRN MIRROR POLISHER [address] [place] [phone] Assigned PCP 04/24/23 10/06/23 Mateo, Mariel Stout APRN MIRROR POLISHER Assigned PCP 10/07/23 11/04/23 Mateo, Mariel Stout APRN MIRROR POLISHER Assigned PCP 11/05/23 12/03/23 Mateo, Mariel Stout APRN MIRROR POLISHER Assigned PCP 12/04/23 01/03/24 Deja Mendez PA-C [address] [place] [phone] Assigned PCP 01/04/24 documented as of this encounter
--- OUTSIDE RECORDS SUMMARY | 2024-06-06 14:53 | XMS_ITS | Encounter Summary ---
Author Organization [facility] Address [address] [place] [address] Care Team Providers Care Tax Audit Manager Name Role Phone Mateo, Mariel Stout APRN OCCUPATIONAL WORK EXPERIENCE TEACHER Primary Care Provi adam Unavailable Mateo, Mariel Stout APRN OCCUPATIONAL WORK EXPERIENCE TEACHER Unavailable Un available Samia Silverman MD Unavailable [phone] No Ref-Primary, Physician Primary Care Provider Mateo, Mariel Stout APRN OCCUPATIONAL WORK EXPERIENCE TEACHER Unavailable Un available Nadege Jones APRN OCCUPATIONAL WORK EXPERIENCE TEACHER Unavailable [phone] Mateo, Mairel Stout APRN OCCUPATIONAL WORK EXPERIENCE TEACHER Unavailable Un available Nadege Jones APRN OCCUPATIONAL WORK EXPERIENCE TEACHER Unavailable Mateo, Mariel Stout APRN OCCUPATIONAL WORK EXPERIENCE TEACHER Unavailable Un available Mateo, Mariel Stout APRN OCCUPATIONAL WORK EXPERIENCE TEACHER Unavailable Un available MateoMariel APRN OCCUPATIONAL WORK EXPERIENCE TEACHER Unavailable Un available Deja Mendez PA-C Unavailable [phone] Reason for Visit * Reason Comments Medication Refill Encounter Details Date Type Department Care Team (Late st Contact Info) Description 02/02/[address] [address] Mariel Galindo APRN CNP Medication Refill Social History Tobacco Use Types Packs/Day Years Used Date Smoking Tobacco: Never Smokeless Tobacco: Never Alcohol Use Standard Drinks/Week Comments Not Currently 0 (1 standard drink = 0.6 oz pur e alcohol) wine occasionally PHQ-2 Answer Date Recorded PHQ-2 Score 3 12/23/2020 [place] Depression Scale Answer Date Recorded [place] Depression Score 16 12/04/2020 Last EPDS Self [...] review/approval because: Elevated PHQ-9 Marcela Benedict RN [facility] -- Triage Nurse documented in this encounter Plan of Treatment Not on file documented as of this encounter Visit Diagnoses Diagnosis Moderate major depression Major depressive disorder, single episode, moderate documented in this encounter Additional Health Concerns Assessment Noted Time PHQ-9 Depression Total Score: 17 021 1:27 PM CDT documented as of this encounter Care Teams Tax Audit Manager Relationship Specialty Start Date End Date Mariel Galindo APRN CNP PCP - General Nurse Practitioner 08/13/14 06/08/22 No Ref-Primary, Physician PCP - General 06/09/22 06/02/23 Mariel Galindo APRN OCCUPATIONAL WORK EXPERIENCE TEACHER Assigned PCP 10/21/14 04/10/22 Samia Silverman MD [address] [place] [address] Assigned OBGYN Provider 08/04/20 Mariel Galindo APRN OCCUPATIONAL WORK EXPERIENCE TEACHER Assigned PCP 06/27/22 01/08/23 Nadege Jones APRN OCCUPATIONAL WORK EXPERIENCE TEACHER [address], [place] [phone] Assigned PCP 01/09/23 01/15/23 Mateo, Mariel Stout APRN OCCUPATIONAL WORK EXPERIENCE TEACHER Assigned PCP 01/16/23 04/23/23 Nadege Jones APRN OCCUPATIONAL WORK EXPERIENCE TEACHER [address], [place] [phone] Assigned PCP 04/24/23 10/06/23 Mateo, Mariel Stout APRN OCCUPATIONAL WORK EXPERIENCE TEACHER Assigned PCP 10/07/23 11/04/23 Mateo, Mariel Stout APRN OCCUPATIONAL WORK EXPERIENCE TEACHER Assigned PCP 11/05/23 12/03/23 Mateo, Mariel Stout APRN OCCUPATIONAL WORK EXPERIENCE TEACHER Assigned PCP 12/04/23 01/03/24 Deja Mendez PA-C [address] [place] [phone] Assigned PCP 01/04/24 documented as of this encounter
--- OUTSIDE RECORDS SUMMARY | 2024-06-06 14:53 | XMS_ITS | Encounter Summary ---
Author Organization [place] Address [address] [place] [address] Care Team Providers Care Dispute Resolution Analyst Name Role Phone Mariel Galindo APRN, CNP Primary Care Provi adam Unavailable Mateo, Mairel Stout APRN QUALITY CONTROL SCIENTIST Unavailable Un available Samia Silverman MD Unavailable No Ref-Primary, Physician Primary Care Provider Mateo, Mariel Stout APRN QUALITY CONTROL SCIENTIST Unavailable Un available Nadege Jones APRN QUALITY CONTROL SCIENTIST Unavailable Mateo, Mariel Stout APRN QUALITY CONTROL SCIENTIST Unavailable Un available Nadege Jones APRN QUALITY CONTROL SCIENTIST Unavailable [phone] Mateo, Mariel Stout APRN QUALITY CONTROL SCIENTIST Unavailable Un available Mateo, Mariel Stout APRN QUALITY CONTROL SCIENTIST Unavailable Un available Mateo, Mariel Stout APRN QUALITY CONTROL SCIENTIST Unavailable Un available Deja Mendez PA-C Unavailable [phone] Reason for Visit * Reason Onset Date Comments Refill Request 09/14/2019 Encounter Details Date Type Department Care Team (Late st Contact Info) Description 09/14/2019 [facility] [address] [phone] Mariel Galindo APRN CNP Refill [...] Diagnosis Hypothyroidism, unspecified type Moderate major depression Major depressive disorder, single episode, moderate Anxiety Anxiety state, unspecified ADHD (attention deficit hyperactivity disorder), combined type Attention deficit disorder with hyperactivity documented in this encounter Additional Health Concerns Assessment Noted Time PHQ-9 Depression Total Score: 9 07/28/20 19 8:28 AM SHOP HAND documented as of this encounter Care Teams Dispute Resolution Analyst Relationship Specialty Start Date End Date Mariel Galindo APRN CNP PCP - General Nurse Practitioner 08/13/14 06/08/22 No Ref-Primary, Physician PCP - General 06/09/22 06/02/23 Mariel Galindo APRN CNP Assigned PCP 10/21/14 04/10/22 Samia Silverman MD [address] [address] Assigned OBGYN Provider 08/04/20 Mariel Galindo APRN QUALITY CONTROL SCIENTIST Assigned PCP 06/27/22 01/08/23 Nadege Jones APRN QUALITY CONTROL SCIENTIST [address] [place] [address] Assigned PCP 01/09/23 01/15/23 Mariel Galindo APRN CNP Assigned PCP 01/16/23 04/23/23 Nadege Jones APRN QUALITY CONTROL SCIENTIST [address] [place] [phone] Assigned PCP 04/24/23 10/06/23 Mateo, Mariel Stout APRN QUALITY CONTROL SCIENTIST Assigned PCP 10/07/23 11/04/23 Mateo, Mariel Stout APRN QUALITY CONTROL SCIENTIST Assigned PCP 11/05/23 12/03/23 Mateo, Mariel Stout APRN QUALITY CONTROL SCIENTIST Assigned PCP 12/04/23 01/03/24 Deja Mendez PA-C [address] [place] [phone] Assigned PCP 01/04/24 documented as of this encounter
--- OUTSIDE RECORDS SUMMARY | 2024-06-06 14:53 | XMS_ITS | Encounter Summary ---
Author Organization [place] Address [address] [place] [address]. [place] [address] Care Team Providers Care Mineral Resources Inspector Name Role Phone Mateo, Mariel Stout SUPERVISOR FINISHING DEMO EVENT SPECIALIST Primary Care Provi adam Unavailable Mateo, Mariel Stout SUPERVISOR FINISHING DEMO EVENT SPECIALIST Unavailable Un available Samia Silverman MD Unavailable [phone] No Ref-Primary, Physician Primary Care Provider Mateo, Mariel Stout APRN DEMO EVENT SPECIALIST Unavailable Un available Nadege Jones APRN DEMO EVENT SPECIALIST Unavailable Mateo, Mariel Stout APRN DEMO EVENT SPECIALIST Unavailable Un available Nadege Jones APRN DEMO EVENT SPECIALIST Unavailable Mateo, Mariel Stout APRN DEMO EVENT SPECIALIST Unavailable Un available Mateo, Mariel Stout APRN DEMO EVENT SPECIALIST Unavailable Un available Mateo, Mariel Stout APRN DEMO EVENT SPECIALIST Unavailable Un available Deja Mendez PA-C Unavailable [phone] Encounter Details Date Type Department Care Team (Late st Contact Info) Description 09/27/2019 [facility] Medical Advice [address] [place] [address] Mimi Sun Social History Tobacco [...] Total Score: 9 07/28/20 19 8:28 AM CASTING CARRIER documented as of this encounter Care Teams Mineral Resources Inspector Relationship Specialty Start Date End Date Mariel Galindo APRN CNP PCP - General Nurse Practitioner 08/13/14 06/08/22 No Ref-Primary, Physician PCP - General 06/09/22 06/02/23 Mariel Galindo APRN DEMO EVENT SPECIALIST Assigned PCP 10/21/14 04/10/22 Samia Silverman MD [address] [place] [address] Assigned OBGYN Provider 08/04/20 Mariel Galindo APRN DEMO EVENT SPECIALIST Assigned PCP 06/27/22 01/08/23 Nadege Jones APRN DEMO EVENT SPECIALIST [address] [place] [phone] Assigned PCP 01/09/23 01/15/23 Mariel Galindo APRN DEMO EVENT SPECIALIST Assigned PCP 01/16/23 04/23/23 Nadege Jones APRN DEMO EVENT SPECIALIST [address] [place] [phone] Assigned PCP 04/24/23 10/06/23 MateoMariel meng APRN DEMO EVENT SPECIALIST Assigned PCP 10/07/23 11/04/23 MateoMariel meng APRN DEMO EVENT SPECIALIST Assigned PCP 11/05/23 12/03/23 MateoMariel meng APRN DEMO EVENT SPECIALIST Assigned PCP 12/04/23 01/03/24 Deja Mendez PA-C [address] [place] [address] Assigned PCP 01/04/24 documented as of this encounter
--- OUTSIDE RECORDS SUMMARY | 2024-06-06 14:53 | XMS_ITS | Encounter Summary ---
Author Organization [place] Address [address] [place] [address]. [place] [address] Care Team Providers Care Mink Farmer Name Role Phone Mateo, Mariel Stout BOARD TURNER DYE PENETRANT TESTING TECHNICIAN Primary Care Provi adam Unavailable Mateo, Mariel Stout BOARD TURNER DYE PENETRANT TESTING TECHNICIAN Unavailable Un available Samia Silverman MD Unavailable [phone] No Ref-Primary, Physician Primary Care Provider Mateo, Mariel Stout APRN DYE PENETRANT TESTING TECHNICIAN Unavailable Un available Nadege Jones APRN DYE PENETRANT TESTING TECHNICIAN Unavailable [phone] Mateo, Mariel Stout APRN DYE PENETRANT TESTING TECHNICIAN Unavailable Un available Nadege Jones APRN DYE PENETRANT TESTING TECHNICIAN Unavailable Mateo, Mariel Stout APRN DYE PENETRANT TESTING TECHNICIAN Unavailable Un available Mateo, Mariel Stout APRN DYE PENETRANT TESTING TECHNICIAN Unavailable Un available Mateo, Mariel Stout APRN DYE PENETRANT TESTING TECHNICIAN Unavailable Un available Deja Mendez PA-C Unavailable [phone] Encounter Details Date Type Department Care Team (Late st Contact Info) Description 09/16/2020 [facility] [address] [address] Sheyla Cespedes, MATERIALS ASSISTANT Social History Tobacco Use Types Packs/Day [...] documented as of this encounter Care Teams Mink Farmer Relationship Specialty Start Date End Date Mariel Galindo APRN CNP PCP - General Nurse Practitioner 08/13/14 06/08/22 No Ref-Primary, Physician PCP - General 06/09/22 06/02/23 Mariel Galindo APRN DYE PENETRANT TESTING TECHNICIAN Assigned PCP 10/21/14 04/10/22 Samia Silverman MD [address] [address] Assigned OBGYN Provider 08/04/20 Mariel Galindo APRN DYE PENETRANT TESTING TECHNICIAN Assigned PCP 06/27/22 01/08/23 Nadege Jones APRN DYE PENETRANT TESTING TECHNICIAN [address] [place] [phone] Assigned PCP 01/09/23 01/15/23 Mariel Galindo APRN DYE PENETRANT TESTING TECHNICIAN Assigned PCP 01/16/23 04/23/23 Nadege Jones APRN DYE PENETRANT TESTING TECHNICIAN [address] [place] [phone] Assigned PCP 04/24/23 10/06/23 MateoMariel meng APRN DYE PENETRANT TESTING TECHNICIAN Assigned PCP 10/07/23 11/04/23 MateoMariel meng APRN DYE PENETRANT TESTING TECHNICIAN Assigned PCP 11/05/23 12/03/23 MateoMariel meng APRN DYE PENETRANT TESTING TECHNICIAN Assigned PCP 12/04/23 01/03/24 Deja Mendez PA-C [address] [place] [address] Assigned PCP 01/04/24 documented as of this encounter
--- OUTSIDE RECORDS SUMMARY | 2024-06-06 14:53 | XMS_ITS | Encounter Summary ---
Author Organization [place] Address [address] [place] [address] Care Team Providers Care Coffee Sampler Name Role Phone MateoMariel meng APRN MANAGER PAID Primary Care Provi adam Unavailable Mateo, Mariel Stout APRN MANAGER PAID Unavailable Un available Mateo, Mariel Stout APRN MANAGER PAID Unavailable Un available Samia Silverman MD Unavailable [phone] No Ref-Primary, Physician Primary Care Provider Mateo, Mariel Stout APRN MANAGER PAID Unavailable Un available Nadege Jones APRN MANAGER PAID Unavailable [phone] Mateo, Mariel Stout APRN MANAGER PAID Unavailable Un available Nadege Jones APRN MANAGER PAID Unavailable Mateo, Mariel Stout APRN MANAGER PAID Unavailable Un available Mateo, Mariel Stout APRN MANAGER PAID Unavailable Un available Mateo, Mariel Stout APRN MANAGER PAID Unavailable Un available Deja Mendez PA-C Unavailable [phone] Encounter Details Date Type Department Care [...] Depression Total Score: 12 017 7:21 AM ASSISTANT PROFESSOR OF GEOGRAPHY documented as of this encounter Care Teams Coffee Sampler Relationship Specialty Start Date End Date Mariel Galindo APRN CNP PCP - General Nurse Practitioner 08/13/14 06/08/22 Mariel Galindo APRN MANAGER PAID PCP - Assigned PCP 10/21/14 11/15/18 No Ref-Primary, Physician PCP - General 06/09/22 06/02/23 Mariel Galindo APRN CNP Assigned PCP 10/21/14 04/10/22 Samia Silverman MD [address] [facility] [address] [place], [place] [address] Assigned OBGYN Provider 08/04/20 Mariel Galindo APRN MANAGER PAID Assigned PCP 06/27/22 01/08/23 Nadege Jones APRN MANAGER PAID [address] [place] [address] Assigned PCP 01/09/23 01/15/23 Mariel Galindo APRN MANAGER PAID Assigned PCP 01/16/23 04/23/23 Nadege Jones APRN MANAGER PAID [address] [place] [phone] Assigned PCP 04/24/23 10/06/23 Mariel Galindo APRN MANAGER PAID Assigned PCP 10/07/23 11/04/23 Mariel Galindo APRN MANAGER PAID Assigned PCP 11/05/23 12/03/23 Mariel Galindo APRN MANAGER PAID Assigned PCP 12/04/23 01/03/24 Deja Mendez PA-C [address] [place] [address] Assigned PCP 01/04/24 documented as of this encounter
--- OUTSIDE RECORDS SUMMARY | 2024-06-06 14:53 | XMS_ITS | Encounter Summary ---
Author Organization [place] Address [address] [place] [address] Care Team Providers Care Kitchen Porter Name Role Phone Mateo, Mariel Stout APRN, CNP Primary Care Provi adam Unavailable Mateo, Mariel Stout APRN JEWEL INSERTER Unavailable Un available Mateo, Mariel Stout APRN JEWEL INSERTER Unavailable Un available Samia Silverman MD Unavailable [phone] No Ref-Primary, Physician Primary Care Provider Mateo, Mariel Stout APRN JEWEL INSERTER Unavailable Un available Nadege Jones APRN JEWEL INSERTER Unavailable [phone] Mateo, Mariel Stout APRN JEWEL INSERTER Unavailable Un available Nadege Jones APRN JEWEL INSERTER Unavailable Mateo, Mariel Stout APRN JEWEL INSERTER Unavailable Un available Mateo, Mariel Stout APRN JEWEL INSERTER Unavailable Un available Mateo, Mariel Stout APRN JEWEL INSERTER Unavailable Un available Deja Mendez PA-C Unavailable [phone] Reason for Visit * Reason Comments Medication Refill FLUoxetine (PROZAC) 20 MG capsule Encounter Details Date Type Department Care Team (Late st Contact Info) Description 03/25/[address] [address] Mariel Galindo APRN CNP Medication [...] # refills: 1 Last Office Visit with [facility] primary care provider: 10/23/2016Mateo Last PHQ-9 score on record= PHQ-9 SCORE 01/12/2017 Total Score - Total Score 14 documented in this encounter Plan of Treatment Not on file documented as of this encounter Visit Diagnoses Diagnosis Moderate major depression- Primary Major depressive disorder, single episode, moderate documented in this encounter Additional Health Concerns Assessment Noted Time PHQ-9 Depression Total Score: 14 017 7:04 AM CDT documented as of this encounter Care Teams Kitchen Porter Relationship Specialty Start Date End Date Mariel Galindo APRN CNP PCP - General Nurse Practitioner 08/13/14 06/08/22 Mariel Galindo APRN CNP PCP - Assigned PCP 10/21/14 11/15/18 No Ref-Primary, Physician PCP - General 06/09/22 06/02/23 Mariel Galindo APRN JEWEL INSERTER Assigned PCP 10/21/14 04/10/22 Samia Silverman MD [address] [address] Assigned OBGYN Provider 08/04/20 Mariel Galindo APRN JEWEL INSERTER Assigned PCP 06/27/22 01/08/23 Nadege Jones APRN JEWEL INSERTER [address] [place] [phone] Assigned PCP 01/09/23 01/15/23 Mariel Galindo APRN JEWEL INSERTER Assigned PCP 01/16/23 04/23/23 Nadege Jones APRN JEWEL INSERTER [address] [place] [phone] Assigned PCP 04/24/23 10/06/23 Mariel Galindo APRN JEWEL INSERTER Assigned PCP 10/07/23 11/04/23 Mariel Galindo APRN JEWEL INSERTER Assigned PCP 11/05/23 12/03/23 Mariel Galindo APRN JEWEL INSERTER Assigned PCP 12/04/23 01/03/24 Deja Mendez PA-C [address] [place] [phone] Assigned PCP 01/04/24 documented as of this encounter
== END 2024-06-06 14:46 | disposition home or self-care (01) ==
PROVIDERS: Visit Provider Midwife
DX: O99.712 Diseases of the skin and subcutaneous tissue complicating pregnancy, second trimester (principal); L29.9 Pruritus, unspecified; Z3A.19 19 weeks gestation of pregnancy
CPT/HCPCS: 82239; 84450; 84460; 84550

== ENCOUNTER 2024-06-21 10:04 | Outpatient (CLI) | payer OTHER, SELFPAY ==
--- OUTSIDE RECORDS SUMMARY | 2024-06-21 10:09 | XMS_ITS | Referral Summary ---
Author Organization [place] Address [address] [place] [address] Care Team Providers Care Sport Shoe Spike Assembler Name Role Phone Deja Mendez PA-C Unavailable [phone] Allergies No known active allergies Medications Medication Sig Dispensed Refills Start Date End Date Status hydrOXYzine (ATARAX) 25 MG tabletIndications:An xiety Take 0.5-1 tablets (12.5-25 mg) by mouth 3 times daily as needed for anxiety 30 tablet 11/24/2022 Active Additional Information Patient not taking.Reported on 12/14/2023 FLUoxetine (PROZAC) 40 MG capsuleIndications:M oderate major depression (H) Take 1 capsule (40 [...] citalopram (CELEXA) 10 MG tabletIndications:Mo derate major depression (H),Anxiety Take 1 tablet (10 [...] 07/28/19 NIL, +HR HPV, not 16/18. Plan [place] 06/11/20 Patient is lost to pap tracking [...] Neuropsych evaluation for ADD completed: UNKNOWN Last [employer] website verification: 06/28/19 [email or web address] Last Assessment & Plan: Patient is followed by MARIEL GALINDO for ongoing prescription of stimulants. All refills should be approved by this provider, or covering partner. Medication(s): amphetamine-dextroamphetamine (ADDERALL XR) 30 MG per 24 hr capsule. Maximum quantity per month: 30 Clinic visit frequency required: Q 6 months Controlled substance agreement on file: No Neuropsych evaluation for ADD completed: No Last [employer] website verification: done on 05.10.17 [email or web address] CARDIOVASCULAR SCREENING; LDL GOAL LESS THAN 160 [...] declined 04/20/2023 How often do you attend christianity or religion serv ices? Never 04/20/2023 Do you belong to any clubs o r organizations such as christianity groups, unions, fraternal or athletic groups, or [...] Answer Date Recorded PHQ-2 Score 3 12/14/2023 [facility] - Occupational [...] place to sleep or slept in a retirement (including now)? No 04/20/2023 [place] Depression Scale Answer Date Recorded [place] Depression Score 16 12/04/2020 Last EPDS Self [...] TYPES DNA CERVICAL Routine 11/21/2021 8:09 AM STRAW HAT BR[facility]HER Cervical cancer screening GYNECOLOGIC CYTOLOGY Routine 11/21/2021 8:09 AM [facility] Cervical cancer screening HIV ANTIGEN ANTIBODY COMBO [...] [facility] SPECIALTY CORE/PROT/ENDO UM Specialty Core/Prot/Endo [address] [facility] [address] [facility], [address] [address], [facility] [phone] * Basic metabolic panel (Ca, Cl, CO2, [...] 04/20/2023 3:45 PM CDT Nadege Jones [facility] FINISH[facility] LAB - BLOOD PATRICIA MCCLELLAN [facility] [place] [facility] [address] [facility], [address] [place] [address], [facility] [phone] * TSH WITH FREE T4 REFLEX (11/24/2022 11:06 AM CDT) TSH 1.31 0.30 - 4.20 uIU/mL 11/24/2022 5:51 PM CDT [facility] Blood BLOOD SPECIMEN / Unknown Venipuncture / Unknown 11/24/2022 11:06 AM CDT 11/24/2022 11:10 AM CDT Nadege Jones APRN [employer] AND GAMES HAND FINISHER LAB - BLOOD PATRICIA MCCLELLAN [facility] [place] [facility] [address] [facility] [address], [address] [place] [address], [facility] [phone] * Pap Screen with HPV - recommended age 30 - 65 years (11/21/2021 8:09 AM STRAW HAT BRUSHER) Interpretation Negative for Intraepithelial Lesion or Malignancy [...] of this testing was completed at [facility] 11/25/2021 9:24 AM CDT SPECIALTY LABS Brushing CERVIX UTERI STRUCTURE / Unknown 11/21/2021 8:09 AM STR[facility] BR[facility]HER 11/21/2021 8:24 AM STRAW [facility]AT BR[facility]HER Mariel Galindo APRN TOYS AND GAMES HAND FINISHER LAB - [facility] Specialty Lab [address] [facility] [address] Building, [address] [place] [address], [facility] [phone] * HPV High Risk Types DNA Cervical (11/21/2021 8:09 AM STR[facility]AT [facility]) Other HR HPV Negative Negative 11/26/2021 2:10 PM CDT [facility] HPV16 DNA Negative Negative 11/26/2021 2:10 PM CDT [facility] HPV18 DNA Negative Negative 11/26/2021 2:10 PM CDT [facility] FINAL DIAGNOSIS This patient's sample is negative for HPV DNA. This test was developed and its performance characteristics determined by the [facility], Molecular Diagnostics Laboratory. It has not [...] Non-blood Collection / Unknown 11/21/2021 8:09 AM STRAW HAT BRUSHER 11/25/2021 3:59 PM CDT Mariel Galindo MOVIE SHOT CAMERAM[employer] [facility] HAND FINISHER LAB - BLOOD ORDERABLES [facility] [address], [address] [place] [address], [facility] [phone] * HIV Antigen Antibody Combo (05/20/2016) HIV Antigen Antibody Combo Negative Blood specimen (specimen) Patient Reported LAB - BLOOD ORDERABL ES from Last 3 Months or Most Recently Relevant to Health Maintenance Care Teams Sport Shoe Spike Assembler Relationship Specialty Start Date End Date Deja Mendez PA-C [address] [place] [address] Assigned PCP 01/04/24
--- OUTSIDE RECORDS SUMMARY | 2024-06-21 10:09 | XMS_ITS | Encounter Summary ---
Author Organization [place] Address [address] [place] [address] Care Team Providers Care Etl Software Engineer Name Role Phone Mariel Galindo APRN, CNP Primary Care Provi adam Unavailable Mateo, Mariel Stout APRN MEDICAL RECORD ADMINISTRATOR Unavailable Un available Samia Silverman MD Unavailable [phone] No Ref-Primary, Physician Primary Care Provider Mateo, Mariel Stout APRN MEDICAL RECORD ADMINISTRATOR Unavailable Un available Nadege Jones APRN MEDICAL RECORD ADMINISTRATOR Unavailable Mateo, Mareil Stout APRN MEDICAL RECORD ADMINISTRATOR Unavailable Un available Nadege Jones APRN MEDICAL RECORD ADMINISTRATOR Unavailable Mateo, Mariel Stout APRN MEDICAL RECORD ADMINISTRATOR Unavailable Un available Mateo, Mariel Stout APRN MEDICAL RECORD ADMINISTRATOR Unavailable Un available Mateo, Mariel Stout APRN MEDICAL RECORD ADMINISTRATOR Unavailable Un available Deja Mendez PA-C Unavailable [phone] Reason for Visit * Reason Onset Date Comments Refill Request 03/06/2021 Encounter Details Date Type Department Care Team (Late st Contact Info) Description 03/06/2021 [facility] [address] [phone] Mariel Galindo APRN CNP Refill Request Social History Tobacco Use Types Packs/Day Years Used Date Smoking Tobacco: Never Smokeless Tobacco: Never Alcohol Use Standard Drinks/Week Comments Not Currently 0 (1 standard drink = 0.6 oz pur e alcohol) wine occasionally PHQ-2 Answer Date Recorded PHQ-2 Total Score (Adult) - Positive if 3 or more points; Administer PHQ-9 if positive 0 03/06/2021 [place] Depression Scale Answer Date Recorded [place] Depression Score 16 12/04/2020 Last EPDS Self [...] for review/approval because: Drug not on the [facility] refill protocol Failing PHQ9 Trish Salvador RN [...] documented as of this encounter Care Teams Etl Software Engineer Relationship Specialty Start Date End Date Mariel Galindo APRN MEDICAL RECORD ADMINISTRATOR PCP - General Nurse Practitioner 08/13/14 06/08/22 No Ref-Primary, Physician PCP - General 06/09/22 06/02/23 Mariel Galindo APRN MEDICAL RECORD ADMINISTRATOR Assigned PCP 10/21/14 04/10/22 Samia Silverman MD [address] [place] [address] [place] [address], [place] [address] Assigned OBGYN Provider 08/04/20 Mariel Galindo APRN MEDICAL RECORD ADMINISTRATOR Assigned PCP 06/27/22 01/08/23 Nadege Jones APRN MEDICAL RECORD ADMINISTRATOR [address] [place] [phone] Assigned PCP 01/09/23 01/15/23 Mariel Galindo APRN MEDICAL RECORD ADMINISTRATOR Assigned PCP 01/16/23 04/23/23 Nadege Jones APRN MEDICAL RECORD ADMINISTRATOR [address] [place] [phone] Assigned PCP 04/24/23 10/06/23 MatoeMariel meng APRN MEDICAL RECORD ADMINISTRATOR Assigned PCP 10/07/23 11/04/23 Mariel Galindo APRN MEDICAL RECORD ADMINISTRATOR Assigned PCP 11/05/23 12/03/23 MateoMariel APRN MEDICAL RECORD ADMINISTRATOR Assigned PCP 12/04/23 01/03/24 Deja Mendez PA-C [address] [place] [address] Assigned PCP 01/04/24 documented as of this encounter
--- OUTSIDE RECORDS SUMMARY | 2024-06-21 10:09 | XMS_ITS | Encounter Summary ---
Author Organization [facility] Address [address] [place] [address] Care Team Providers Care Heading Pinner Name Role Phone Mariel Galindo APRN, CNP Primary Care Provi adam Unavailable Mateo, Mariel Stout APRN GROUNDWATER CONSULTANT Unavailable Un available aSmia Silverman MD Unavailable No Ref-Primary, Physician Primary Care Provider Mateo, Mariel Stout APRN GROUNDWATER CONSULTANT Unavailable Un available Nadege Jones APRN GROUNDWATER CONSULTANT Unavailable [phone] Mateo, Mariel Stout APRN GROUNDWATER CONSULTANT Unavailable Un available Nadege Jones APRN GROUNDWATER CONSULTANT Unavailable [phone] Mateo, Mariel Stout APRN GROUNDWATER CONSULTANT Unavailable Un available Mateo, Mariel Stout APRN GROUNDWATER CONSULTANT Unavailable Un available Mateo, Mariel Stout APRN GROUNDWATER CONSULTANT Unavailable Un available Deja Mendez PA-C Unavailable [phone] Reason for Visit * Reason Onset Date Comments Refill Request 10/09/2021 Encounter Details Date Type Department Care Team (Late st Contact Info) Description 10/09/2021 [facility] [address] [phone] Mariel Galindo APRN CNP Refill Request Social History Tobacco Use Types Packs/Day Years Used Date Smoking Tobacco: Never Smokeless Tobacco: Never Alcohol Use Standard Drinks/Week Comments Not Currently 0 (1 standard drink = 0.6 oz pur e alcohol) wine occasionally PHQ-2 Answer Date Recorded PHQ-2 Total Score (Adult) - Positive if 3 or more points; Administer PHQ-9 if positive 2 07/09/2021 [place] Depression Scale Answer Date Recorded [place] Depression Score 16 12/04/2020 Last EPDS Self [...] Pedersen RN on 10/09/2021 at 8:54 AM DIALYSIS RN documented in this encounter Plan of Treatment Not on file documented as of this encounter Visit Diagnoses Diagnosis ADHD (attention deficit hyperactivity disorder), combined type Attention deficit disorder with hyperactivity documented in this encounter Additional Health Concerns Assessment Noted Time PHQ-9 Depression Total Score: 12 021 7:02 AM CDT documented as of this encounter Care Teams Heading Pinner Relationship Specialty Start Date End Date Mariel Galindo APRN GROUNDWATER CONSULTANT PCP - General Nurse Practitioner 08/13/14 06/08/22 No Ref-Primary, Physician PCP - General 06/09/22 06/02/23 Mariel Galindo APRN GROUNDWATER CONSULTANT Assigned PCP 10/21/14 04/10/22 Samia Silverman MD [address] [address] Assigned OBGYN Provider 08/04/20 Mateo, Mariel Stout APRN GROUNDWATER CONSULTANT Assigned PCP 06/27/22 01/08/23 Nadege Jones APRN GROUNDWATER CONSULTANT [address] [place], [place] [phone] Assigned PCP 01/09/23 01/15/23 Mateo, Mariel Stout APRN GROUNDWATER CONSULTANT Assigned PCP 01/16/23 04/23/23 Nadege Jones APRN GROUNDWATER CONSULTANT [address] [place], [place] [phone] Assigned PCP 04/24/23 10/06/23 Mateo, Mariel Stout APRN GROUNDWATER CONSULTANT Assigned PCP 10/07/23 11/04/23 Mateo, Mariel Stout APRN GROUNDWATER CONSULTANT Assigned PCP 11/05/23 12/03/23 Mateo, Mariel Stout APRN GROUNDWATER CONSULTANT Assigned PCP 12/04/23 01/03/24 Deja Mendez PA-C [address] [place] [address] Assigned PCP 01/04/24 documented as of this encounter
--- OUTSIDE RECORDS SUMMARY | 2024-06-21 10:09 | XMS_ITS | Encounter Summary ---
Author Organization [facility] Address [address] [place] [address] Care Team Providers Care Ironworker Apprentice Shop Name Role Phone Mariel Galindo APRN, CNP Primary Care Provi adam Unavailable Mateo, Mariel Stout APRN MINE CAR DISPATCHER Unavailable Un available Samia Silverman MD Unavailable [phone] No Ref-Primary, Physician Primary Care Provider Mateo, Mariel Stout APRN MINE CAR DISPATCHER Unavailable Un available Nadege Jones APRN MINE CAR DISPATCHER Unavailable Mateo, Mariel Stout APRN MINE CAR DISPATCHER Unavailable Un available Nadege Jones APRN MINE CAR DISPATCHER Unavailable [phone] Mateo, Mariel Stout APRN MINE CAR DISPATCHER Unavailable Un available Mateo, Mariel Stout APRN MINE CAR DISPATCHER Unavailable Un available MateoMariel APRN MINE CAR DISPATCHER Unavailable Un available Deja Mendez PA-C Unavailable [phone] Reason for Visit * Reason Onset Date Comments Refill Request 06/06/2021 Encounter Details Date Type Department Care Team (Late st Contact Info) Description 06/06/2021 [facility] [address] [address] Mariel Galindo APRN CNP Refill Request Social History Tobacco Use Types Packs/Day Years Used Date Smoking Tobacco: Never Smokeless Tobacco: Never Alcohol Use Standard Drinks/Week Comments Not Currently 0 (1 standard drink = 0.6 oz pur e alcohol) wine occasionally PHQ-2 Answer Date Recorded PHQ-2 Total Score (Adult) - Positive if 3 or more points; Administer PHQ-9 if positive 0 04/07/2021 [place] Depression Scale Answer Date Recorded [place] Depression Score 16 12/04/2020 Last EPDS Self [...] documented as of this encounter Care Teams Ironworker Apprentice Shop Relationship Specialty Start Date End Date Mariel Galindo APRN MINE CAR DISPATCHER PCP - General Nurse Practitioner 08/13/14 06/08/22 No Ref-Primary, Physician PCP - General 06/09/22 06/02/23 Mariel Galindo APRN MINE CAR DISPATCHER Assigned PCP 10/21/14 04/10/22 Samia Silverman MD [address] [address] Assigned OBGYN Provider 08/04/20 Mateo, Mariel Stout APRN MINE CAR DISPATCHER Assigned PCP 06/27/22 01/08/23 Nadege Jones APRN MINE CAR DISPATCHER [address] [place], [place] [phone] Assigned PCP 01/09/23 01/15/23 Mateo, Mariel Stout APRN MINE CAR DISPATCHER Assigned PCP 01/16/23 04/23/23 Nadege Jones APRN MINE CAR DISPATCHER [address] [place], [place] [phone] Assigned PCP 04/24/23 10/06/23 Mateo, Mariel Stout APRN MINE CAR DISPATCHER Assigned PCP 10/07/23 11/04/23 Mateo, Mariel Stout APRN MINE CAR DISPATCHER Assigned PCP 11/05/23 12/03/23 Mateo, Mariel Stout APRN MINE CAR DISPATCHER Assigned PCP 12/04/23 01/03/24 Deja Mendez PA-C [address] [place] [address] Assigned PCP 01/04/24 documented as of this encounter
--- OUTSIDE RECORDS SUMMARY | 2024-06-21 10:09 | XMS_ITS | Clinical Summary ---
Author Organization [facility] Address [address] [place] [address] Care Team Providers Care Fish Peddler Name Role Phone Deja Mendez PA-C Unavailable [phone] Allergies No known active allergies Medications [...] 07/28/19 NIL, +HR HPV, not 16/18. Plan [place] 06/11/20 Patient is lost to pap tracking [...] Neuropsych evaluation for ADD completed: UNKNOWN Last [employer] website verification: 06/28/19 [email or web address] Last Assessment & Plan: Patient is followed by MARIEL GALINDO for ongoing prescription of stimulants. All refills should be approved by this provider, or covering partner. Medication(s): amphetamine-dextroamphetamine (ADDERALL XR) 30 MG per 24 hr capsule. Maximum quantity per month: 30 Clinic visit frequency required: Q 6 months Controlled substance agreement on file: No Neuropsych evaluation for ADD completed: No Last [employer] website verification: done on 05.10.17 [email or web address] CARDIOVASCULAR SCREENING; LDL GOAL LESS THAN 160 [...] declined 04/20/2023 How often do you attend rastafari or adventist serv ices? Never 04/20/2023 Do you belong to any clubs o r organizations such as rastafari groups, unions, fraternal or athletic groups, or [...] Answer Date Recorded PHQ-2 Score 3 12/14/2023 [facility]at ional [facility] - Occupational Stress Questionnaire Answer Date Recorded [...] place to sleep or slept in a long term (including now)? No 04/20/2023 [place] Depression Scale Answer Date Recorded [place] Depression Score 16 12/04/2020 Last EPDS Self [...] 3-dose series) 2004 HPV FOLLOW-UP 11/21/2022 11/21/2021, 09/0 09/2019, 05/14/2020, Additional history exists PAP FOLLOW-UP [...] Td or Tdap) 10/22/2030 10/22/2020, 07/23/2016, 05/13/2015 RSV VACCINE (1 - 1-dose 75+ series) 2060 HIV SCREENING Completed 05/20/2016, 11/28/2014 DEPRESSION ACTION PLAN Completed 8, 10/23/2016, 06/19/2015, Additional history exists PAP Discontinued 11/21/2021, 09/2019, 05/14/2020, Additional history exists HEPATITIS C [...] TYPES DNA CERVICAL Routine 11/21/2021 8:09 AM RECREATION COORDINATOR Cervical cancer screening GYNECOLOGIC CYTOLOGY Routine 11/21/2021 8:09 AM RECREATION COORDINATOR Cervical cancer screening HIV ANTIGEN ANTIBODY COMBO [...] newborns, infants, and children. Nadege Jones APRN TELEPHOTO ENGINEER LAB - BLOOD ORDE ELEUTERIO [facility] SPECIALTY CORE/PROT/ENDO UM Specialty Core/Prot/Endo [address] [facility], [address] [place] [address], [facility] [phone] * Basic metabolic panel (Ca, Cl, CO2, [...] Jones W[facility]EN [facility] LAB - BLOOD PATRICIA MCCLELLAN U LABORATORY [facility] [address] [facility], [address] [place] [address], [facility] [phone] * TSH WITH FREE T4 REFLEX (11/24/2022 11:06 AM CDT) TSH 1.31 0.30 - 4.20 uIU/mL 11/24/2022 5:51 PM CDT [facility] LABORATORY Blood BLOOD SPECIMEN / Unknown Venipuncture / Unknown 11/24/2022 11:06 AM CDT 11/24/2022 11:10 AM CDT Nadege SolanoErick FRAZIER LAB - BLOOD PATRICIA HARRISONPEARL Performing Organization Address City/[facility]/ZIP Co de Phone Number LABORATORY [facility] Core Lab [address] [facility], [address] [place] [phone], [facility] [phone] * Pap Screen with HPV - recommended age 30 - 65 years (11/21/2021 8:09 AM RECREATION COORDINATOR) Interpretation Negative for Intraepithelial Lesion or Malignancy [...] component of this testing was completed at [facility] 11/25/2021 9:24 AM CDT SPECIALTY LABS Brushing CERVIX UTERI STRUCTURE / Unknown 11/21/2021 8:09 AM RECREATION COORDINATOR 11/21/2021 8:24 AM RECREATION COORDINATOR Mariel Postmk Galindo APRN TELEPHOTO ENGINEER LAB - NISHANT Glez AP SPECIALTY LABS Specialty Lab [address] [facility], [address] [address], [facility] [phone] * HPV High Risk Types DNA Cervical (11/21/2021 8:09 AM RECREATION COORDINATOR) Other HR HPV Negative Negative 11/26/2021 2:10 PM CDT [facility]NOSTICS HPV16 DNA Negative Negative 11/26/2021 2:10 PM CDT MOLECULAR DIAGNOSTICS HPV18 DNA Negative Negative 11/26/2021 2:10 PM CDT [facility] DIAGNOSTICS FINAL DIAGNOSIS This patient's sample is negative for HPV DNA. This test was developed and its performance characteristics determined by the [facility], Molecular Diagnostics Laboratory. It has not [...] Non-blood Collection / Unknown 11/21/2021 8:09 AM RECREATION COORDINATOR 11/25/2021 3:59 PM CDT Mariel Stout Mateo SURFACE GRINDER TENDER TELEPHOTO ENGINEER LAB - BLOOD ORDERABLES [facility] MOLECULAR DIAGNOSTICS UM Molecular Diagnostics [address], [address] [place] [address], [facility] [phone] * HIV Antigen Antibody Combo (05/20/2016) HIV Antigen Antibody Combo Negative Blood specimen (specimen) Patient Reported LAB - BLOOD ORDERABL ES from Last 3 Months or Most Recently Relevant to Health Maintenance Care Teams Fish Peddler Relationship Specialty Start Date End Date Deja Mendez PA-C [address] [place] [address] Assigned PCP 01/04/24
--- OUTSIDE RECORDS SUMMARY | 2024-06-21 10:09 | XMS_ITS | Encounter Summary ---
Author Organization [facility] Address [address] [place] [address] Care Team Providers Care Boat Carpenter Name Role Phone No Ref-Primary, Physician Primary Care Provider MateoMariel CERTIFIED JUVENILE PROBATION OFFICER BLOCK LAYER Unavailable Un available Nadege Jones APRN BLOCK LAYER Unavailable [phone] MateoMariel CERTIFIED JUVENILE PROBATION OFFICER BLOCK LAYER Unavailable Un available MateoMariel APRN BLOCK LAYER Unavailable Un available MateoMariel APRN BLOCK LAYER Unavailable Un available Deja Mendez PA-C Unavailable [phone] Encounter Details Date Type Department Care Team (Late st Contact Info) Description 01/25/2023 MyC Medical Advice [facility] [id number] [place] [address] Kimberly Montanez, MACHINE SIZER Social History Tobacco Use Types Packs/Day Years Used Date Smoking Tobacco: Never Smokeless Tobacco: Never Alcohol Use Standard Drinks/Week Comments Yes 0 (1 standard drink = 0.6 oz pur e alcohol) wine occasionally PHQ-2 Answer Date Recorded PHQ-2 Total Score (Adult) - Positive if 3 or more points; Administer PHQ-9 if positive 2 11/24/2022 [place] Depression Scale Answer Date Recorded [place] Depression Score 16 12/04/2020 Last EPDS Self [...] documented as of this encounter Care Teams Boat Carpenter Relationship Specialty Start Date End Date No Ref-Primary, Physician PCP - General 06/09/22 06/02/23 Mariel Galindo APRN BLOCK LAYER Assigned PCP 01/16/23 04/23/23 Nadege Jones APRN BLOCK LAYER [address] [place] [id number] Assigned PCP 04/24/23 10/06/23 MateoMariel meng APRN BLOCK LAYER Assigned PCP 10/07/23 11/04/23 Mariel Galindo APRN BLOCK LAYER Assigned PCP 11/05/23 12/03/23 MateoMariel meng APRN BLOCK LAYER Assigned PCP 12/04/23 01/03/24 Deja Mendez PA-C [address] [facility] [place] [address] Assigned PCP 01/04/24 documented as of this encounter
--- OUTSIDE RECORDS SUMMARY | 2024-06-21 10:09 | XMS_ITS | Encounter Summary ---
Author Organization [facility] Address [address] [place] [address] Care Team Providers Care Office Machine Technician Name Role Phone Mariel Galindo APRN, CNP Primary Care Provi adam Unavailable Mateo, Mariel Stout APRN CONVERTER SUPERVISOR Unavailable Un available Samia Silverman MD Unavailable [phone] No Ref-Primary, Physician Primary Care Provider Mateo, Mariel Stout APRN CONVERTER SUPERVISOR Unavailable Un available Nadege Jones APRN CONVERTER SUPERVISOR Unavailable Mateo, Mariel Stout APRN CONVERTER SUPERVISOR Unavailable Un available Nadege Jones APRN CONVERTER SUPERVISOR Unavailable [phone] Mateo, Mariel Stout APRN CONVERTER SUPERVISOR Unavailable Un available Mateo, Mariel Stout APRN CONVERTER SUPERVISOR Unavailable Un available MateoMariel APRN CONVERTER SUPERVISOR Unavailable Un available Deja Mendez PA-C Unavailable [phone] Reason for Visit * Reason Onset Date Comments Refill Request 07/07/2021 Encounter Details Date Type Department Care Team (Late st Contact Info) Description 07/07/2021 [facility] [address] [address] Mariel Galindo APRN CNP [...] points; Administer PHQ-9 if positive 2 07/09/2021 [place] Depression Scale Answer Date Recorded [place] Depression Score 16 12/04/2020 Last EPDS Self [...] documented as of this encounter Care Teams Office Machine Technician Relationship Specialty Start Date End Date Mariel Galindo APRN CONVERTER SUPERVISOR PCP - General Nurse Practitioner 08/13/14 06/08/22 No Ref-Primary, Physician PCP - General 06/09/22 06/02/23 Mariel Galindo APRN CONVERTER SUPERVISOR Assigned PCP 10/21/14 04/10/22 Samia Silverman MD [address] [place] [address] Assigned OBGYN Provider 08/04/20 Mariel Galindo APRN CONVERTER SUPERVISOR Assigned PCP 06/27/22 01/08/23 Nadege Jones APRN CONVERTER SUPERVISOR [address] [place] [address] Assigned PCP 01/09/23 01/15/23 MateoMariel meng APRN CONVERTER SUPERVISOR Assigned PCP 01/16/23 04/23/23 Nadege Jones APRN CONVERTER SUPERVISOR [address] [place] [address] Assigned PCP 04/24/23 10/06/23 MateoMariel meng APRN CONVERTER SUPERVISOR Assigned PCP 10/07/23 11/04/23 Mariel Galindo APRN CONVERTER SUPERVISOR Assigned PCP 11/05/23 12/03/23 Mariel Galindo APRN CONVERTER SUPERVISOR Assigned PCP 12/04/23 01/03/24 Deja Mendez PA-C [address] [place] [address] Assigned PCP 01/04/24 documented as of this encounter
--- OUTSIDE RECORDS SUMMARY | 2024-06-21 10:09 | XMS_ITS | Encounter Summary ---
Author Organization [facility] Address [address] [place] [address]. [place] [address] Care Team Providers Care Sql Data Analyst Name Role Phone No Ref-Primary, Physician Primary Care Provider Mateo, Mariel Stout APRN HEAD CUSTODIAN Unavailable Un available Nadege Jones APRN HEAD CUSTODIAN Unavailable Mateo, Mariel Stout APRN HEAD CUSTODIAN Unavailable Un available MateoMariel APRN HEAD CUSTODIAN Unavailable Un available Mateo, Mariel Stout APRN HEAD CUSTODIAN Unavailable Un available Deja Mendez PA-C Unavailable [phone] Reason for Visit * Reason Onset Date Comments Refill Request 02/18/2023 Encounter Details Date Type Department Care Team (Late st Contact Info) Description 02/18/2023 MyC Refill M [facility] [address] [place] [address] Amanda Tolbert PA-C [address] [place] [address] Refill Request Social History Tobacco Use Types Packs/Day Years Used Date Smoking Tobacco: Never Smokeless Tobacco: Never Alcohol Use Standard Drinks/Week Comments Yes 0 (1 standard drink = 0.6 oz pur e alcohol) wine occasionally PHQ-2 Answer Date Recorded PHQ-2 Total Score (Adult) - Positive if 3 or more points; Administer PHQ-9 if positive 2 02/18/2023 [place] Depression Scale Answer Date Recorded [place] Depression Score 16 12/04/2020 Last EPDS Self [...] documented as of this encounter Care Teams Sql Data Analyst Relationship Specialty Start Date End Date No Ref-Primary, Physician PCP - General 06/09/22 06/02/23 Mariel Galindo APRN HEAD CUSTODIAN Assigned PCP 01/16/23 04/23/23 Nadege Jones APRN HEAD CUSTODIAN [address] [place] [phone] Assigned PCP 04/24/23 10/06/23 Mariel Galindo APRN HEAD CUSTODIAN Assigned PCP 10/07/23 11/04/23 Mariel Galindo APRN HEAD CUSTODIAN Assigned PCP 11/05/23 12/03/23 Mariel Galindo APRN HEAD CUSTODIAN Assigned PCP 12/04/23 01/03/24 Deja Mendez PA-C [address] [place] [phone] Assigned PCP 01/04/24 documented as of this encounter
--- OUTSIDE RECORDS SUMMARY | 2024-06-21 10:09 | XMS_ITS | Encounter Summary ---
Author Organization [facility] Address [address] [place] [address] Care Team Providers Care Diesel Trailer Mechanic Name Role Phone No Ref-Primary, Physician Primary Care Provider Mateo, Mariel Stout APRN DRILL SETUP OPERATOR Unavailable Un available Nadege Jones APRN DRILL SETUP OPERATOR Unavailable [phone] Mateo, Mariel Stout APRN DRILL SETUP OPERATOR Unavailable Un available Mateo, Mariel Stout APRN DRILL SETUP OPERATOR Unavailable Un available Mateo, Mariel Stout APRN DRILL SETUP OPERATOR Unavailable Un available Deja Mendez PA-C Unavailable [phone] Reason for Visit * Reason Onset Date Comments Refill Request 02/18/2023 Encounter Details Date Type Department Care Team (Late st Contact Info) Description 02/18/2023 MyC Refill M [facility] [address] [place] [phone] Tamra Chavez PA-C [address] [place] [address] Refill Request Social History Tobacco Use Types Packs/Day Years Used Date Smoking Tobacco: Never Smokeless Tobacco: Never Alcohol Use Standard Drinks/Week Comments Yes 0 (1 standard drink = 0.6 oz pur e alcohol) wine occasionally PHQ-2 Answer Date Recorded PHQ-2 Total Score (Adult) - Positive if 3 or more points; Administer PHQ-9 if positive 2 02/18/2023 [place] Depression Scale Answer Date Recorded [place] Depression Score 16 12/04/2020 Last EPDS Self [...] documented as of this encounter Care Teams Diesel Trailer Mechanic Relationship Specialty Start Date End Date No Ref-Primary, Physician PCP - General 06/09/22 06/02/23 Mariel Galindo APRN DRILL SETUP OPERATOR Assigned PCP 01/16/23 04/23/23 Nadege Jones APRN DRILL SETUP OPERATOR [address] [place] [phone] Assigned PCP 04/24/23 10/06/23 Mariel Galindo APRN DRILL SETUP OPERATOR Assigned PCP 10/07/23 11/04/23 Mariel Galindo APRN DRILL SETUP OPERATOR Assigned PCP 11/05/23 12/03/23 Mariel Galindo APRN DRILL SETUP OPERATOR Assigned PCP 12/04/23 01/03/24 Deja Mendez PA-C [address] [place] [phone] Assigned PCP 01/04/24 documented as of this encounter
--- OUTSIDE RECORDS SUMMARY | 2024-06-21 10:09 | XMS_ITS | Encounter Summary ---
Author Organization [facility] Address [address] [place] [address]. [place] [address] Care Team Providers Care Electronic Data Interchange Specialist Name Role Phone No Ref-Primary, Physician Primary Care Provider MateoMariel ENTRY LEVEL ELECTRICAL ENGINEER ORTHOPAEDIC PHYSICIAN ASSISTANT Unavailable Un available Nadege Jones APRN ORTHOPAEDIC PHYSICIAN ASSISTANT Unavailable [phone] MateoMariel APRN ORTHOPAEDIC PHYSICIAN ASSISTANT Unavailable Un available MateoMariel APRN ORTHOPAEDIC PHYSICIAN ASSISTANT Unavailable Un available MateoMariel APRN ORTHOPAEDIC PHYSICIAN ASSISTANT Unavailable Un available Deja Mendez PA-C Unavailable [phone] Encounter Details Date Type Department Care Team (Late st Contact Info) Description 04/16/2023 MyC Medical Advice [facility] [address] [place] [address] Kimberly Montanez, FORM CARPENTER Social History Tobacco Use Types Packs/Day Years [...] declined 04/20/2023 How often do you attend moravian or holiness serv ices? Never 04/20/2023 Do you belong to any clubs o r organizations such as moravian groups, unions, fraternal or athletic groups, or [...] Answer Date Recorded PHQ-2 Score 4 04/20/2023 [facility] of Occupat ional Health - Occupational [...] in a penitentiary (including now)? No 04/20/2023 [place] Depression Scale Answer Date Recorded [place] Depression Score 16 12/04/2020 Last EPDS Self [...] documented as of this encounter Care Teams Electronic Data Interchange Specialist Relationship Specialty Start Date End Date No Ref-Primary, Physician PCP - General 06/09/22 06/02/23 Mariel Galindo APRN ORTHOPAEDIC PHYSICIAN ASSISTANT Assigned PCP 01/16/23 04/23/23 Nadege Jones APRN ORTHOPAEDIC PHYSICIAN ASSISTANT [address] [place] [address] Assigned PCP 04/24/23 10/06/23 Mariel Galindo APRN CNP Assigned PCP 10/07/23 11/04/23 Mariel Galindo APRN ORTHOPAEDIC PHYSICIAN ASSISTANT Assigned PCP 11/05/23 12/03/23 Mariel Galindo APRN ORTHOPAEDIC PHYSICIAN ASSISTANT Assigned PCP 12/04/23 01/03/24 Deja Mendez PA-C [address] [place] [phone] Assigned PCP 01/04/24 documented as of this encounter
--- OUTSIDE RECORDS SUMMARY | 2024-06-21 10:09 | XMS_ITS | Encounter Summary ---
Author Organization [facility] Address [address] [place] [address]. [place] [address] Care Team Providers Care Window Treatment Installer Name Role Phone Mateo, Mariel Stout CABBAGE SALTER INSTRUMENT FITTER Primary Care Provi adam Unavailable Mateo, Mariel Stout CABBAGE SALTER INSTRUMENT FITTER Unavailable Un available Samia Silverman MD Unavailable [phone] No Ref-Primary, Physician Primary Care Provider Mateo, Mariel Stout CABBAGE SALTER INSTRUMENT FITTER Unavailable Un available Nadege Jones APRN INSTRUMENT FITTER Unavailable Mateo, Mariel Stout CABBAGE SALTER INSTRUMENT FITTER Unavailable Un available Nadege Jones APRN INSTRUMENT FITTER Unavailable [phone] Mateo, Mariel Stout APRN INSTRUMENT FITTER Unavailable Un available Mateo, Mariel Stout APRN INSTRUMENT FITTER Unavailable Un available Mateo, Mariel Stout CABBAGE SALTER INSTRUMENT FITTER Unavailable Un available Deja Mendez PA-C Unavailable [phone] Encounter Details Date Type Department Care Team (Late st Contact Info) Description 03/03/2021 [facility] Medical Advice [facility] [place] [address] [place] [address] Sheyla Cespedes, PATIENT ASSISTANT Social History Tobacco Use Types Packs/Day Years Used Date Smoking Tobacco: Never Smokeless Tobacco: Never Alcohol Use Standard Drinks/Week Comments Not Currently 0 (1 standard drink = 0.6 oz pur e alcohol) wine occasionally PHQ-2 Answer Date Recorded PHQ-2 Total Score (Adult) - Positive if 3 or more points; Administer PHQ-9 if positive 0 03/06/2021 [place] Depression Scale Answer Date Recorded [place] Depression Score 16 12/04/2020 Last EPDS Self [...] documented as of this encounter Care Teams Window Treatment Installer Relationship Specialty Start Date End Date Mariel Galindo APRN CNP PCP - General Nurse Practitioner 08/13/14 06/08/22 No Ref-Primary, Physician PCP - General 06/09/22 06/02/23 Mariel Galindo APRN INSTRUMENT FITTER Assigned PCP 10/21/14 04/10/22 Samia Silverman MD [address] [place], [place] [address] Assigned OBGYN Provider 08/04/20 Mariel Galindo APRN INSTRUMENT FITTER Assigned PCP 06/27/22 01/08/23 Nadege Jones APRN INSTRUMENT FITTER [address] [place] [address] Assigned PCP 01/09/23 01/15/23 Mariel Galindo APRN INSTRUMENT FITTER Assigned PCP 01/16/23 04/23/23 Nadege Jones APRN INSTRUMENT FITTER [address] [place] [address] Assigned PCP 04/24/23 10/06/23 Mateo, Mariel Stout APRN INSTRUMENT FITTER Assigned PCP 10/07/23 11/04/23 Mateo, Mariel Stout APRN INSTRUMENT FITTER Assigned PCP 11/05/23 12/03/23 Mateo, Mariel Stout APRN INSTRUMENT FITTER Assigned PCP 12/04/23 01/03/24 Deja Mendez PA-C [address] [place] [address] Assigned PCP 01/04/24 documented as of this encounter
--- OUTSIDE RECORDS SUMMARY | 2024-06-21 10:09 | XMS_ITS | Encounter Summary ---
Author Organization [facility] Address [address] [place] [address]. [place] [address] Care Team Providers Care Credit Card Clerk Name Role Phone Mateo, Mariel Stout OXYGEN THERAPY TECHNICIAN MOBILE HOME INSTALLER Primary Care Provi adam Unavailable Mateo, Mariel Stout APRN MOBILE HOME INSTALLER Unavailable Un available No Ref-Primary, Physician Primary Care Provider Mateo, Mariel Stout APRN MOBILE HOME INSTALLER Unavailable Un available Nadege Jones APRN MOBILE HOME INSTALLER Unavailable [phone] Mateo, Mariel Stout APRN MOBILE HOME INSTALLER Unavailable Un available Nadege Jones APRN MOBILE HOME INSTALLER Unavailable [phone] Mateo, Mariel Stout APRN MOBILE HOME INSTALLER Unavailable Un available Mateo, Mariel Stout APRN MOBILE HOME INSTALLER Unavailable Un available Mateo, Mariel Stout APRN MOBILE HOME INSTALLER Unavailable Un available Deja Mendez PA-C Unavailable [phone] Encounter Details Date Type Department Care Team (Late st Contact Info) Description 02/10/2022 [facility] [address] [place] [phone] Tamra Chavez PA-C [address] [place], [place] [phone] Social History Tobacco Use Types Packs/Day Years Used Date Smoking Tobacco: Never Smokeless Tobacco: Never Alcohol Use Standard Drinks/Week Comments Yes 0 (1 standard drink = 0.6 oz pur e alcohol) wine occasionally PHQ-2 Answer Date Recorded PHQ-2 Score 2 11/21/2021 [place] Depression Scale Answer Date Recorded [place] Depression Score 16 12/04/2020 Last EPDS Self [...] Depression Total Score: 13 022 7:03 AM QUALITY CONTROL MANAGER documented as of this encounter Care Teams Credit Card Clerk Relationship Specialty Start Date End Date Mariel Galindo APRN CNP PCP - General Nurse Practitioner 08/13/14 06/08/22 No Ref-Primary, Physician PCP - General 06/09/22 06/02/23 Mariel Galindo APRN CNP Assigned PCP 10/21/14 04/10/22 Mariel Galindo APRN MOBILE HOME INSTALLER Assigned PCP 06/27/22 01/08/23 Nadege Jones APRN MOBILE HOME INSTALLER [address] [place], [place] [address] Assigned PCP 01/09/23 01/15/23 Mariel Galindo APRN CNP Assigned PCP 01/16/23 04/23/23 Nadege Jones APRN MOBILE HOME INSTALLER [address] [place] [phone] Assigned PCP 04/24/23 10/06/23 Mateo, Mariel Stout APRN MOBILE HOME INSTALLER Assigned PCP 10/07/23 11/04/23 MateoMariel meng APRN MOBILE HOME INSTALLER Assigned PCP 11/05/23 12/03/23 Mateo, Mariel Stout APRN MOBILE HOME INSTALLER Assigned PCP 12/04/23 01/03/24 Deja Mendez PA-C [address] [place] [phone] Assigned PCP 01/04/24 documented as of this encounter
--- OUTSIDE RECORDS SUMMARY | 2024-06-21 10:10 | XMS_ITS | Encounter Summary ---
Author Organization [place] Address [address] [place] [address] Care Team Providers Care Auto Hauler Name Role Phone MateoMariel meng APRN PROFESSOR OF LITERACY Primary Care Provi adam Unavailable Mateo, Mariel Stout APRN PROFESSOR OF LITERACY Unavailable Un available Mateo, Mariel Stout APRN PROFESSOR OF LITERACY Unavailable Un available Samia Silverman MD Unavailable [phone] No Ref-Primary, Physician Primary Care Provider Mateo, Mariel Stout APRN PROFESSOR OF LITERACY Unavailable Un available Nadege Jones APRN PROFESSOR OF LITERACY Unavailable [phone] Mateo, Mariel Stout APRN PROFESSOR OF LITERACY Unavailable Un available Nadege Jones APRN PROFESSOR OF LITERACY Unavailable Mateo, Mariel Stout APRN PROFESSOR OF LITERACY Unavailable Un available Mateo, Mariel Stout APRN PROFESSOR OF LITERACY Unavailable Un available Mateo, Mariel Stout APRN PROFESSOR OF LITERACY Unavailable Un available Deja Mendez PA-C Unavailable [phone] Encounter Details Date Type Department Care [...] Depression Total Score: 12 017 7:21 AM LOUVER MORTISER OPERATOR documented as of this encounter Care Teams Auto Hauler Relationship Specialty Start Date End Date Mariel Galindo APRN CNP PCP - General Nurse Practitioner 08/13/14 06/08/22 Mariel Galindo APRN PROFESSOR OF LITERACY PCP - Assigned PCP 10/21/14 11/15/18 No Ref-Primary, Physician PCP - General 06/09/22 06/02/23 Mariel Galindo APRN CNP Assigned PCP 10/21/14 04/10/22 Samia Silverman MD [address] [facility] [address] [place], [place] [address] Assigned OBGYN Provider 08/04/20 aMriel Galindo APRN PROFESSOR OF LITERACY Assigned PCP 06/27/22 01/08/23 Nadege Jones APRN PROFESSOR OF LITERACY [address] [place] [address] Assigned PCP 01/09/23 01/15/23 Mariel Galindo APRN PROFESSOR OF LITERACY Assigned PCP 01/16/23 04/23/23 Nadege Jones APRN PROFESSOR OF LITERACY [address] [place] [phone] Assigned PCP 04/24/23 10/06/23 Mariel Galindo APRN PROFESSOR OF LITERACY Assigned PCP 10/07/23 11/04/23 Mariel Galindo APRN PROFESSOR OF LITERACY Assigned PCP 11/05/23 12/03/23 Mariel Galindo APRN PROFESSOR OF LITERACY Assigned PCP 12/04/23 01/03/24 Deja Mendez PA-C [address] [place] [address] Assigned PCP 01/04/24 documented as of this encounter
--- OUTSIDE RECORDS SUMMARY | 2024-06-21 10:10 | XMS_ITS | Encounter Summary ---
Author Organization [place] Address [address] [place] [address] Care Team Providers Care Car Conditioner Name Role Phone Mariel Galindo APRN, CNP Primary Care Provi adam Unavailable Mateo, Mariel Stout APRN TUNNEL MUCKER Unavailable Un available Samia Silverman MD Unavailable [phone] No Ref-Primary, Physician Primary Care Provider Mateo, Mariel Stout APRN TUNNEL MUCKER Unavailable Un available Nadege Jones APRN TUNNEL MUCKER Unavailable [phone] Mateo, Mariel Stout APRN TUNNEL MUCKER Unavailable Un available Nadege Jones APRN TUNNEL MUCKER Unavailable Mateo, Mariel Stout APRN TUNNEL MUCKER Unavailable Un available Mateo, Mariel Stout APRN TUNNEL MUCKER Unavailable Un available Mateo, Mariel Stout APRN TUNNEL MUCKER Unavailable Un available Deja Mendez PA-C Unavailable [phone] Reason for Visit * Reason Onset Date Comments Refill Request 09/14/2019 Encounter Details Date Type Department Care Team (Late st Contact Info) Description 09/14/2019 [facility] [address] [address] Mariel Galindo APRN CNP Refill [...] Total Score: 9 07/28/20 19 8:28 AM GUM MAKER documented as of this encounter Care Teams Car Conditioner Relationship Specialty Start Date End Date Mariel Galindo APRN TUNNEL MUCKER PCP - General Nurse Practitioner 08/13/14 06/08/22 No Ref-Primary, Physician PCP - General 06/09/22 06/02/23 Mariel Galindo APRN TUNNEL MUCKER Assigned PCP 10/21/14 04/10/22 Samia Silverman MD [address] [place], [place] [address] Assigned OBGYN Provider 08/04/20 Mariel Galindo APRN TUNNEL MUCKER Assigned PCP 06/27/22 01/08/23 Nadege Jones APRN TUNNEL MUCKER [address] [place] [address] Assigned PCP 01/09/23 01/15/23 Mariel Galindo APRN TUNNEL MUCKER Assigned PCP 01/16/23 04/23/23 Nadege Jones APRN TUNNEL MUCKER [address] [place] [address] Assigned PCP 04/24/23 10/06/23 Mateo, Mariel Stout APRN TUNNEL MUCKER Assigned PCP 10/07/23 11/04/23 Mateo, Mariel Stout APRN TUNNEL MUCKER Assigned PCP 11/05/23 12/03/23 Mateo, Mariel Stout APRN TUNNEL MUCKER Assigned PCP 12/04/23 01/03/24 Deja Mendez PA-C [address] [place] [address] Assigned PCP 01/04/24 documented as of this encounter
--- OUTSIDE RECORDS SUMMARY | 2024-06-21 10:10 | XMS_ITS | Encounter Summary ---
Author Organization [place] Address [address] [place] [address] Care Team Providers Care Manager Steel Name Role Phone Mateo, Mariel Stout APRN, CNP Primary Care Provi adam Unavailable Mateo, Mariel Stout APRN ANIMAL TRAPPER Unavailable Un available Mateo, Mariel Stout APRN ANIMAL TRAPPER Unavailable Un available Samia Silverman MD Unavailable [phone] No Ref-Primary, Physician Primary Care Provider Mateo, Mariel Stout APRN ANIMAL TRAPPER Unavailable Un available Nadege Jones APRN ANIMAL TRAPPER Unavailable [phone] Mateo, Mariel Stout APRN ANIMAL TRAPPER Unavailable Un available Nadege Jones APRN ANIMAL TRAPPER Unavailable Mateo, Mariel Stout APRN ANIMAL TRAPPER Unavailable Un available Mateo, Mariel Stout APRN ANIMAL TRAPPER Unavailable Un available Mateo, Mariel Stout APRN ANIMAL TRAPPER Unavailable Un available Deja Mendez PA-C Unavailable [phone] Reason for Visit * Reason Comments Medication Refill FLUoxetine (PROZAC) 20 MG capsule Encounter Details Date Type Department Care Team (Late st Contact Info) Description 03/25/[address] [address] Mariel Galindo APRN CNP Medication [...] # refills: 1 [place] [facility] [place] provider: 10/23/[place]Mateo Last PHQ-9 score [...] documented as of this encounter Care Teams Manager Steel Relationship Specialty Start Date End Date Mariel Galindo APRN CNP PCP - General Nurse Practitioner 08/13/14 06/08/22 Mariel Galindo APRN ANIMAL TRAPPER PCP - Assigned PCP 10/21/14 11/15/18 No Ref-Primary, Physician PCP - General 06/09/22 06/02/23 Mariel Galindo APRN CNP Assigned PCP 10/21/14 04/10/22 Samia Silverman MD [address] [address] Assigned OBGYN Provider 08/04/20 Mariel Galindo APRN ANIMAL TRAPPER Assigned PCP 06/27/22 01/08/23 Nadege Jones APRN ANIMAL TRAPPER [address] [place] [address] Assigned PCP 01/09/23 01/15/23 Mariel Galindo APRN ANIMAL TRAPPER Assigned PCP 01/16/23 04/23/23 Nadege Jones APRN ANIMAL TRAPPER [address] [place] [phone] Assigned PCP 04/24/23 10/06/23 Mariel Galindo APRN ANIMAL TRAPPER Assigned PCP 10/07/23 11/04/23 Mariel Galindo APRN ANIMAL TRAPPER Assigned PCP 11/05/23 12/03/23 Mariel Galindo APRN ANIMAL TRAPPER Assigned PCP 12/04/23 01/03/24 Deja Mendez PA-C [address] [place] [address] Assigned PCP 01/04/24 documented as of this encounter
--- OUTSIDE RECORDS SUMMARY | 2024-06-21 10:10 | XMS_ITS | Encounter Summary ---
Author Organization [place] Address [address] [place] [address] Care Team Providers Care Photograph Mounter Name Role Phone Mariel Galindo APRN SUPPLY CHAIN LOGISTICS MANAGER Primary Care Provi adam Unavailable Mateo, Mariel Stout APRN SUPPLY CHAIN LOGISTICS MANAGER Unavailable Un available Samia Silverman MD Unavailable [phone] No Ref-Primary, Physician Primary Care Provider Mateo, Mariel Stout APRN SUPPLY CHAIN LOGISTICS MANAGER Unavailable Un available Nadege Jones APRN SUPPLY CHAIN LOGISTICS MANAGER Unavailable Mateo, Mariel Stout APRN SUPPLY CHAIN LOGISTICS MANAGER Unavailable Un available Nadege Jones APRN SUPPLY CHAIN LOGISTICS MANAGER Unavailable Mateo, Mariel Stout APRN SUPPLY CHAIN LOGISTICS MANAGER Unavailable Un available Mateo, Mariel Stout APRN SUPPLY CHAIN LOGISTICS MANAGER Unavailable Un available Mateo, Mariel Stout APRN SUPPLY CHAIN LOGISTICS MANAGER Unavailable Un available Deja Mendez PA-C Unavailable [phone] Reason for Visit * Reason Onset Date Comments Refill Request 06/20/2019 [place] Encounter Details Date Type Department Care Team ([facility] st Contact Info) Description 06/20/2019 MyC Refill M [address] [phone] Mariel Galindo APRN CNP Refill Request (Earnest) [...] Drug not on the G refill protocol DOBBY LOOM CHAIN PEGGER: 1.31.19 Annual Controlled substance agreement: 01.01.16 Annual [...] SHOULD BE DELETED.) Last Office Visit with [facility] [place] primary care provider: 10/24/2018-Mariel Galindo Future Office [...] consultation, please call . Analysis performed by [facility], [email or web address] [place] [address] , No results found for: COMDAT, No results found for: THC13, PCP13, COC13, MAMP13, OPI13, AMP13, BZO13, TCA13, MTD13, BAR13, OXY13, PPX13, BUP13 Processing: Send Electronically to pharmacy [email or web address] DOBBY LOOM CHAIN PEGGER checked in past 3 months? No, route to RN documented in this encounter Plan of Treatment Not on file documented as of this encounter Visit Diagnoses Diagnosis ADHD (attention deficit hyperactivity disorder), combined type Attention deficit disorder with hyperactivity documented in this encounter Additional Health Concerns Assessment Noted Time PHQ-9 Depression Total Score: 13 019 7:06 AM CORRECTIONAL SUBSTANCE ABUSE COUNSELOR documented as of this encounter Care Teams Photograph Mounter Relationship Specialty Start Date End Date Mariel Galindo APRN SUPPLY CHAIN LOGISTICS MANAGER PCP - General Nurse Practitioner 08/13/14 06/08/22 No Ref-Primary, Physician PCP - General 06/09/22 06/02/23 Mariel Galindo APRN SUPPLY CHAIN LOGISTICS MANAGER Assigned PCP 10/21/14 04/10/22 Samia Silverman MD [address] [place] [address] Assigned OBGYN Provider 08/04/20 Mateo, Mariel Stout APRN SUPPLY CHAIN LOGISTICS MANAGER Assigned PCP 06/27/22 01/08/23 Nadege Jones APRN SUPPLY CHAIN LOGISTICS MANAGER [address] [place] [phone] Assigned PCP 01/09/23 01/15/23 Mateo, Mariel Stout APRN SUPPLY CHAIN LOGISTICS MANAGER Assigned PCP 01/16/23 04/23/23 Nadege Jones APRN SUPPLY CHAIN LOGISTICS MANAGER [address] [place] [phone] Assigned PCP 04/24/23 10/06/23 Mateo, Mariel Stout APRN SUPPLY CHAIN LOGISTICS MANAGER Assigned PCP 10/07/23 11/04/23 Mateo, Mariel Stout APRN SUPPLY CHAIN LOGISTICS MANAGER Assigned PCP 11/05/23 12/03/23 Mateo, Mariel Stout APRN SUPPLY CHAIN LOGISTICS MANAGER Assigned PCP 12/04/23 01/03/24 Deja Mendez PA-C [address] [place] [address] Assigned PCP 01/04/24 documented as of this encounter
--- OUTSIDE RECORDS SUMMARY | 2024-06-21 10:10 | XMS_ITS | Encounter Summary ---
Author Organization [place] Address [address] [place] [address]. [place] [address] Care Team Providers Care Care Administrative Tech Name Role Phone Mateo, Mariel Stout MERGERS AND ACQUISITIONS BANKER ACCESS SERVICE REPRESENTATIVE Primary Care Provi adam Unavailable Mateo, Mariel Stout MERGERS AND ACQUISITIONS BANKER ACCESS SERVICE REPRESENTATIVE Unavailable Un available Samia Silverman MD Unavailable [phone] No Ref-Primary, Physician Primary Care Provider Mateo, Mariel Stout APRN ACCESS SERVICE REPRESENTATIVE Unavailable Un available Nadege Jones APRN ACCESS SERVICE REPRESENTATIVE Unavailable Mateo, Mariel Stout APRN ACCESS SERVICE REPRESENTATIVE Unavailable Un available Nadege Jones APRN ACCESS SERVICE REPRESENTATIVE Unavailable Mateo, Mariel Stout APRN ACCESS SERVICE REPRESENTATIVE Unavailable Un available Mateo, Mariel Stout APRN ACCESS SERVICE REPRESENTATIVE Unavailable Un available Mateo, Mariel Stout APRN ACCESS SERVICE REPRESENTATIVE Unavailable Un available Deja Mendez PA-C Unavailable [phone] Encounter Details Date Type Department Care Team (Late st Contact Info) Description 09/16/[address] [facility] [address] [address] Sheyla Cespedes, HEALTH INFORMATION MANAGEMENT DIRECTOR Social History Tobacco Use Types Packs/Day Years [...] documented as of this encounter Care Teams Care Administrative Tech Relationship Specialty Start Date End Date Mariel Galindo APRN CNP PCP - General Nurse Practitioner 08/13/14 06/08/22 No Ref-Primary, Physician PCP - General 06/09/22 06/02/23 Mariel Galindo APRN ACCESS SERVICE REPRESENTATIVE Assigned PCP 10/21/14 04/10/22 Samia Silverman MD [address] [address] Assigned OBGYN Provider 08/04/20 Mariel Galindo APRN ACCESS SERVICE REPRESENTATIVE Assigned PCP 06/27/22 01/08/23 Nadege Jones APRN ACCESS SERVICE REPRESENTATIVE [address] [place] [phone] Assigned PCP 01/09/23 01/15/23 Mariel Galindo APRN ACCESS SERVICE REPRESENTATIVE Assigned PCP 01/16/23 04/23/23 Nadege Jones APRN ACCESS SERVICE REPRESENTATIVE [address] [place] [phone] Assigned PCP 04/24/23 10/06/23 MateoMariel meng APRN ACCESS SERVICE REPRESENTATIVE Assigned PCP 10/07/23 11/04/23 MateoMariel meng APRN ACCESS SERVICE REPRESENTATIVE Assigned PCP 11/05/23 12/03/23 MateoMariel meng APRN ACCESS SERVICE REPRESENTATIVE Assigned PCP 12/04/23 01/03/24 Deja Mendez PA-C [address] [place] [address] Assigned PCP 01/04/24 documented as of this encounter
--- OUTSIDE RECORDS SUMMARY | 2024-06-21 10:10 | XMS_ITS | Encounter Summary ---
Author Organization [place] Address [address] [place] [address] Care Team Providers Care Intervention Nurse Name Role Phone MateoMariel meng APRN CONTACT LENS MOLDER Primary Care Provi adam Unavailable Mateo, Mariel Stout APRN CONTACT LENS MOLDER Unavailable Un available Samia Silverman MD Unavailable [phone] No Ref-Primary, Physician Primary Care Provider Mateo, Mariel Stout APRN CONTACT LENS MOLDER Unavailable Un available Nadege Jones APRN CONTACT LENS MOLDER Unavailable Mateo, Mariel Stout APRN CONTACT LENS MOLDER Unavailable Un available Nadege Jones APRN CONTACT LENS MOLDER Unavailable Mateo, Mariel Stout APRN CONTACT LENS MOLDER Unavailable Un available Mateo, Mariel Stout APRN CONTACT LENS MOLDER Unavailable Un available MateoMariel APRN CONTACT LENS MOLDER Unavailable Un available Deja Mendez PA-C Unavailable [phone] Encounter Details Date Type Department Care [...] documented as of this encounter Care Teams Intervention Nurse Relationship Specialty Start Date End Date Mariel Galindo APRN CNP PCP - General Nurse Practitioner 08/13/14 06/08/22 No Ref-Primary, Physician PCP - General 06/09/22 06/02/23 Mariel Galindo APRN CONTACT LENS MOLDER Assigned PCP 10/21/14 04/10/22 Samia Silverman MD [address] [address] Assigned OBGYN Provider 08/04/20 Mariel Galindo APRN CONTACT LENS MOLDER Assigned PCP 06/27/22 01/08/23 Nadege Jones APRN CONTACT LENS MOLDER [address] [place] [phone] Assigned PCP 01/09/23 01/15/23 Mariel Galindo APRN CONTACT LENS MOLDER Assigned PCP 01/16/23 04/23/23 Nadege Jones APRN CONTACT LENS MOLDER [address] [place] [phone] Assigned PCP 04/24/23 10/06/23 MateoMariel meng APRN CONTACT LENS MOLDER Assigned PCP 10/07/23 11/04/23 MateoMariel APRN CONTACT LENS MOLDER Assigned PCP 11/05/23 12/03/23 MateoMariel meng APRN CONTACT LENS MOLDER Assigned PCP 12/04/23 01/03/24 Deja Mendez PA-C [address] [place] [address] Assigned PCP 01/04/24 documented as of this encounter
--- OUTSIDE RECORDS SUMMARY | 2024-06-21 10:10 | XMS_ITS | Encounter Summary ---
Author Organization [facility] Address [address] [place] [address] Care Team Providers Care National Sales Name Role Phone Mateo, Mariel tSout APRN, CNP Primary Care Provi adam Unavailable Mateo, Mariel Stout APRN TUBING ASSEMBLER Unavailable Un available Samia Silverman MD Unavailable [phone] No Ref-Primary, Physician Primary Care Provider Mateo, Mariel Stout APRN TUBING ASSEMBLER Unavailable Un available Nadege Jones APRN TUBING ASSEMBLER Unavailable Mateo, Mariel Stout APRN TUBING ASSEMBLER Unavailable Un available Nadege Jones APRN TUBING ASSEMBLER Unavailable [phone] Mateo, Mariel Stout APRN TUBING ASSEMBLER Unavailable Un available Mateo, Mariel Stout APRN TUBING ASSEMBLER Unavailable Un available MateoMariel APRN TUBING ASSEMBLER Unavailable Un available Deja Mendez PA-C Unavailable [phone] Reason for Visit * Reason Comments Medication Refill Encounter Details Date Type Department Care Team (Late st Contact Info) Description 02/02/[address] [address] Mariel Galindo APRN CNP Medication Refill Social History Tobacco Use Types Packs/Day Years Used Date Smoking Tobacco: Never Smokeless Tobacco: Never Alcohol Use Standard Drinks/Week Comments Not Currently 0 (1 standard drink = 0.6 oz pur e alcohol) wine occasionally PHQ-2 Answer Date Recorded PHQ-2 Score 3 12/23/2020 [place] Depression Scale Answer Date Recorded [place] Depression Score 16 12/04/2020 Last EPDS Self [...] review/approval because: Elevated PHQ-[address] [facility] -- Triage Nurse documented in this encounter Plan of Treatment Not on file documented as of this encounter Visit Diagnoses Diagnosis Moderate major depression (H) Major depressive disorder, single episode, moderate documented in this encounter Additional Health Concerns Assessment Noted Time PHQ-9 Depression Total Score: 17 021 1:27 PM CDT documented as of this encounter Care Teams National Sales Relationship Specialty Start Date End Date Mariel Galindo APRN TUBING ASSEMBLER PCP - General Nurse Practitioner 08/13/14 06/08/22 No Ref-Primary, Physician PCP - General 06/09/22 06/02/23 Mariel Galindo APRN TUBING ASSEMBLER Assigned PCP 10/21/14 04/10/22 Samia Silverman MD [address] [facility] [address] [address] Assigned OBGYN Provider 08/04/20 Mariel Galindo APRN TUBING ASSEMBLER Assigned PCP 06/27/22 01/08/23 Nadege Jones APRN TUBING ASSEMBLER [address] [place], [place] [phone] Assigned PCP 01/09/23 01/15/23 Mateo, Mariel Stout APRN TUBING ASSEMBLER Assigned PCP 01/16/23 04/23/23 Nadege Jones APRN TUBING ASSEMBLER [address] [place], [place] [phone] Assigned PCP 04/24/23 10/06/23 Mateo, Mariel Stout APRN TUBING ASSEMBLER Assigned PCP 10/07/23 11/04/23 Mateo, Mariel Stout APRN TUBING ASSEMBLER Assigned PCP 11/05/23 12/03/23 Mateo, Mariel Stout APRN TUBING ASSEMBLER Assigned PCP 12/04/23 01/03/24 Deja Mendez PA-C [address] [place] [address] Assigned PCP 01/04/24 documented as of this encounter
--- OUTSIDE RECORDS SUMMARY | 2024-06-21 10:10 | XMS_ITS | Encounter Summary ---
Author Organization [facility] Address [address] [place] [address]. [place] [address] Care Team Providers Care Lead C Developer Name Role Phone Mateo, Mariel Stout CERTIFIED NOVELL ADMINISTRATOR AMBULATORY TECHNOLOGIST Primary Care Provi adam Unavailable Mateo, Mariel Stout CERTIFIED NOVELL ADMINISTRATOR AMBULATORY TECHNOLOGIST Unavailable Un available Samia Silverman MD Unavailable [phone] No Ref-Primary, Physician Primary Care Provider Mateo, Mariel Stout APRN AMBULATORY TECHNOLOGIST Unavailable Un available Nadege Jones APRN AMBULATORY TECHNOLOGIST Unavailable [phone] Mateo, Mariel Stout APRN AMBULATORY TECHNOLOGIST Unavailable Un available Nadege Jones APRN AMBULATORY TECHNOLOGIST Unavailable Mateo, Mariel Stout APRN AMBULATORY TECHNOLOGIST Unavailable Un available Mateo, Mariel Stout APRN AMBULATORY TECHNOLOGIST Unavailable Un available Mateo, Mariel Stout APRN AMBULATORY TECHNOLOGIST Unavailable Un available Deja Mendez PA-C Unavailable [phone] Encounter Details Date Type Department Care Team (Late st Contact Info) Description 09/27/2019 [facility] Medical Advice [address] [place] [address] Mimi Sun Social History Tobacco [...] Total Score: 9 07/28/20 19 8:28 AM MACHINE HEEL SPRAYER documented as of this encounter Care Teams Lead C Developer Relationship Specialty Start Date End Date Mariel Galindo APRN CNP PCP - General Nurse Practitioner 08/13/14 06/08/22 No Ref-Primary, Physician PCP - General 06/09/22 06/02/23 Mariel Galindo APRN AMBULATORY TECHNOLOGIST Assigned PCP 10/21/14 04/10/22 Samia Silverman MD [address] [place] [address] Assigned OBGYN Provider 08/04/20 Mariel Galindo APRN AMBULATORY TECHNOLOGIST Assigned PCP 06/27/22 01/08/23 Nadege Jones APRN AMBULATORY TECHNOLOGIST [address] [place] [phone] Assigned PCP 01/09/23 01/15/23 Mariel Galindo APRN AMBULATORY TECHNOLOGIST Assigned PCP 01/16/23 04/23/23 Nadege Jones APRN AMBULATORY TECHNOLOGIST [address] [place] [phone] Assigned PCP 04/24/23 10/06/23 MateoMariel meng APRN AMBULATORY TECHNOLOGIST Assigned PCP 10/07/23 11/04/23 MateoMariel meng APRN AMBULATORY TECHNOLOGIST Assigned PCP 11/05/23 12/03/23 MateoMariel meng APRN AMBULATORY TECHNOLOGIST Assigned PCP 12/04/23 01/03/24 Deja Mendez PA-C [address] [place] [address] Assigned PCP 01/04/24 documented as of this encounter
== END 2024-06-21 10:05 | disposition home or self-care (01) ==
PROVIDERS: Visit Provider Midwife
DX: O09.522 Supervision of elderly multigravida, second trimester (principal); Z3A.21 21 weeks gestation of pregnancy
CPT/HCPCS: 76811

== ENCOUNTER 2024-07-05 13:30 | Outpatient (CLI) | payer OTHER, SELFPAY ==
--- OUTSIDE RECORDS SUMMARY | 2024-07-05 13:33 | XMS_ITS | Encounter Summary ---
Author Organization [place] Address [address] [place] [address] Care Team Providers Care Tractor Driver Name Role Phone No Ref-Primary, Physician Primary Care Provider Mateo, Mariel Stout APRN SCHOOL SUPERINTENDENT Unavailable Un available Nadege Jones APRN SCHOOL SUPERINTENDENT Unavailable Mateo, Mariel Stout APRN SCHOOL SUPERINTENDENT Unavailable Un available Mateo, Mariel Stout APRN SCHOOL SUPERINTENDENT Unavailable Un available Mateo, Mariel Stout APRN SCHOOL SUPERINTENDENT Unavailable Un available Deja Mendez PA-C Unavailable [phone] Reason for Visit * Reason Onset Date Comments Refill Request 02/18/2023 Encounter Details Date Type Department Care Team (Late st Contact Info) Description 02/18/2023 MyC Refill M [facility] [address] [place] [address] Tamra Chavez PA-C [address] [place] [address] Refill Request Social History Tobacco Use Types Packs/Day Years Used Date Smoking Tobacco: Never Smokeless Tobacco: Never Alcohol Use Standard Drinks/Week Comments Yes 0 (1 standard drink = 0.6 oz pur e alcohol) wine occasionally PHQ-2 Answer Date Recorded PHQ-2 Total Score (Adult) - Positive if 3 or more points; Administer PHQ-9 if positive 2 02/18/2023 [place] Depression Scale Answer Date Recorded [place] Depression Score 16 12/04/2020 Last EPDS Self Harm Result Not on file 12/04 Comments No Sex and Gender Information Value Date Recorded Sex Assigned at Female 04/07/2021 2:32 PM CDT Legal Sex Female 10:33 AM BLASTING CAP ASSEMBLER Gender Identity Female 04/07/2021 2:32 PM CDT [...] documented as of this encounter Care Teams Tractor Driver Relationship Specialty Start Date End Date No Ref-Primary, Physician PCP - General 06/09/22 06/02/23 Mariel Galindo APRN SCHOOL SUPERINTENDENT Assigned PCP 01/16/23 04/23/23 Nadege Jones APRN SCHOOL SUPERINTENDENT [address] [place] [phone] Assigned PCP 04/24/23 10/06/23 Mariel Galindo APRN SCHOOL SUPERINTENDENT Assigned PCP 10/07/23 11/04/23 Mariel Galindo APRN SCHOOL SUPERINTENDENT Assigned PCP 11/05/23 12/03/23 Mariel Galindo APRN SCHOOL SUPERINTENDENT Assigned PCP 12/04/23 01/03/24 Deja Mendez PA-C [address] [place] [address] Assigned PCP 01/04/24 documented as of this encounter
--- OUTSIDE RECORDS SUMMARY | 2024-07-05 13:33 | XMS_ITS | Encounter Summary ---
Author Organization [facility] Address [address] [place] [address] Care Team Providers Care Image Consultant Name Role Phone Mariel Galindo APRN, CNP Primary Care Provi adam Unavailable Mateo, Mariel Stout APRN PATIENT COORDINATOR FRONT DESK Unavailable Un available Samia Silverman MD Unavailable [phone] No Ref-Primary, Physician Primary Care Provider Mateo, Mariel Stout APRN PATIENT COORDINATOR FRONT DESK Unavailable Un available Nadege Jones APRN PATIENT COORDINATOR FRONT DESK Unavailable Mateo, Mariel Stout APRN PATIENT COORDINATOR FRONT DESK Unavailable Un available Nadege Jones APRN PATIENT COORDINATOR FRONT DESK Unavailable Mateo, Mariel Stout APRN PATIENT COORDINATOR FRONT DESK Unavailable Un available Mateo, Mariel Stout APRN PATIENT COORDINATOR FRONT DESK Unavailable Un available MateoMariel meng APRN PATIENT COORDINATOR FRONT DESK Unavailable Un available Deja Mendez PA-C Unavailable [phone] Reason for Visit * Reason Onset Date Comments Refill Request 10/09/2021 Encounter Details Date Type Department Care Team (Late st Contact Info) Description 10/09/2021 [facility] [address] [address] Mariel Galindo APRN CNP Refill Request Social History Tobacco Use Types Packs/Day Years Used Date Smoking Tobacco: Never Smokeless Tobacco: Never Alcohol Use Standard Drinks/Week Comments Not Currently 0 (1 standard drink = 0.6 oz pur e alcohol) wine occasionally PHQ-2 Answer Date Recorded PHQ-2 Total Score (Adult) - Positive if 3 or more points; Administer PHQ-9 if positive 2 07/09/2021 [place] Depression Scale Answer Date Recorded [place] Depression Score 16 12/04/2020 Last EPDS Self Harm Result Not on file 12/04 Comments No Sex and Gender Information Value Date Recorded Sex Assigned at Female 04/07/2021 2:32 PM CDT Legal Sex Female 10:33 AM DIE MACHINE OPERATOR Gender Identity Female 04/07/2021 2:32 PM CDT Sexual Orientation Straight 04/07/2021 2: 32 PM CDT documented as of this encounter Miscellaneous Notes * Telephone Encounter - Mariel Pedersen RN - 10/09/2021 8:54 AM CST Routing refill request to provider for review/approval because: Drug not on the G refill protocol Mariel Pedersen RN on 10/09/2021 at 8:54 AM MACHINE OPERATOR documented in this encounter Plan of Treatment Not on file documented as of this encounter Visit Diagnoses Diagnosis ADHD (attention deficit hyperactivity disorder), combined type Attention deficit disorder with hyperactivity documented in this encounter Additional Health Concerns Assessment Noted Time PHQ-9 Depression Total Score: 12 021 7:02 AM CDT documented as of this encounter Care Teams Image Consultant Relationship Specialty Start Date End Date Mariel Galindo APRN PATIENT COORDINATOR FRONT DESK PCP - General Nurse Practitioner 08/13/14 06/08/22 No Ref-Primary, Physician PCP - General 06/09/22 06/02/23 Mariel Galindo APRN CNP Assigned PCP 10/21/14 04/10/22 Samia Silverman MD [address] [address] Assigned OBGYN Provider 08/04/20 Mateo, Mariel Stout APRN PATIENT COORDINATOR FRONT DESK Assigned PCP 06/27/22 01/08/23 Nadege Jones APRN PATIENT COORDINATOR FRONT DESK [address], [place] [phone] Assigned PCP 01/09/23 01/15/23 Mateo, Mariel Stout APRN PATIENT COORDINATOR FRONT DESK Assigned PCP 01/16/23 04/23/23 Nadege Jones APRN PATIENT COORDINATOR FRONT DESK [address], [place] [phone] Assigned PCP 04/24/23 10/06/23 Mateo, Mariel Stout APRN PATIENT COORDINATOR FRONT DESK Assigned PCP 10/07/23 11/04/23 Mateo, Mariel Stout APRN PATIENT COORDINATOR FRONT DESK Assigned PCP 11/05/23 12/03/23 Mateo, Mariel Stout APRN PATIENT COORDINATOR FRONT DESK Assigned PCP 12/04/23 01/03/24 Deja Mendez PA-C [address] [place] [address] Assigned PCP 01/04/24 documented as of this encounter
--- OUTSIDE RECORDS SUMMARY | 2024-07-05 13:33 | XMS_ITS | Encounter Summary ---
Author Organization [facility] Address [address] [place] [address] Care Team Providers Care Grain Buyer Name Role Phone Mariel Galindo APRN, CNP Primary Care Provi adam Unavailable Mateo, Mariel Stout APRN HEEL ROOM SUPERVISOR Unavailable Un available Samia Silverman MD Unavailable [phone] No Ref-Primary, Physician Primary Care Provider Mateo, Mariel Stout APRN HEEL ROOM SUPERVISOR Unavailable Un available Nadege Jones APRN HEEL ROOM SUPERVISOR Unavailable [phone] Mateo, Mariel Stout APRN HEEL ROOM SUPERVISOR Unavailable Un available Nadege Jones APRN HEEL ROOM SUPERVISOR Unavailable [phone] Mateo, Mariel Stout APRN HEEL ROOM SUPERVISOR Unavailable Un available Mateo, Mariel Stout APRN HEEL ROOM SUPERVISOR Unavailable Un available MateoMariel meng APRN HEEL ROOM SUPERVISOR Unavailable Un available Deja Mendez PA-C Unavailable [phone] Reason for Visit * Reason Onset Date Comments Refill Request 07/07/2021 Encounter Details Date Type Department Care Team (Late st Contact Info) Description 07/07/2021 [facility] [address] [address] Mariel Galindo APRN CNP Refill Request Social History Tobacco Use Types Packs/Day Years Used Date Smoking Tobacco: Never Smokeless Tobacco: Never Alcohol Use Standard Drinks/Week Comments Not Currently 0 (1 standard drink = 0.6 oz pur e alcohol) wine occasionally PHQ-2 Answer Date Recorded PHQ-2 Total Score (Adult) - Positive if 3 or more points; Administer PHQ-9 if positive 2 07/09/2021 [place] Depression Scale Answer Date Recorded [place] Depression Score 16 12/04/2020 Last EPDS Self Harm Result Not on file 12/04 Comments No Sex and Gender Information Value Date Recorded Sex Assigned at Female 04/07/2021 2:32 PM CDT Legal Sex Female 10:33 AM IMPORT DISPATCHER Gender Identity Female 04/07/2021 2:32 PM CDT [...] documented as of this encounter Care Teams Grain Buyer Relationship Specialty Start Date End Date Mariel Galindo APRN HEEL ROOM SUPERVISOR PCP - General Nurse Practitioner 08/13/14 06/08/22 No Ref-Primary, Physician PCP - General 06/09/22 06/02/23 Mariel Galindo APRN HEEL ROOM SUPERVISOR Assigned PCP 10/21/14 04/10/22 Samia Silverman MD [address] [address] Assigned OBGYN Provider 08/04/20 Mariel Galindo APRN HEEL ROOM SUPERVISOR Assigned PCP 06/27/22 01/08/23 Nadege Jones APRN HEEL ROOM SUPERVISOR [address] [facility] [address] Assigned PCP 01/09/23 01/15/23 Mateo, Mariel Stout APRN HEEL ROOM SUPERVISOR Assigned PCP 01/16/23 04/23/23 Nadege Jones APRN HEEL ROOM SUPERVISOR [address] [place], [place] [address] Assigned PCP 04/24/23 10/06/23 Mateo, Mariel Stout APRN HEEL ROOM SUPERVISOR Assigned PCP 10/07/23 11/04/23 Mateo, Mariel Stout APRN HEEL ROOM SUPERVISOR Assigned PCP 11/05/23 12/03/23 Mateo, Mariel Stout APRN HEEL ROOM SUPERVISOR Assigned PCP 12/04/23 01/03/24 Deja Mendez PA-C [address] [place] [address] Assigned PCP 01/04/24 documented as of this encounter
--- OUTSIDE RECORDS SUMMARY | 2024-07-05 13:33 | XMS_ITS | Encounter Summary ---
Author Organization [facility] Address [address] [place] [address] Care Team Providers Care Ammonium Nitrate Crystallizer Name Role Phone No Ref-Primary, Physician Primary Care Provider MateoMariel BUS ATTENDANT GEOMAGNETIST Unavailable Un available Nadege Jones APRN GEOMAGNETIST Unavailable [phone] MateoMariel BUS ATTENDANT GEOMAGNETIST Unavailable Un available MateoMariel APRN GEOMAGNETIST Unavailable Un available MateoMariel APRN GEOMAGNETIST Unavailable Un available Deja Mendez PA-C Unavailable [phone] Encounter Details Date Type Department Care Team (Late st Contact Info) Description 01/25/2023 MyC Medical Advice [facility] [id number] [place] [address] Kimberly Montanez, [facility] Social History Tobacco Use Types Packs/Day Years Used Date Smoking Tobacco: Never Smokeless Tobacco: Never Alcohol Use Standard Drinks/Week Comments Yes 0 (1 standard drink = 0.6 oz pur e alcohol) wine occasionally PHQ-2 Answer Date Recorded PHQ-2 Total Score (Adult) - Positive if 3 or more points; Administer PHQ-9 if positive 2 11/24/2022 [place] Depression Scale Answer Date Recorded [place] Depression Score 16 12/04/2020 Last EPDS Self Harm Result Not on file 12/04 Comments No Sex and Gender Information Value Date Recorded Sex Assigned at Female 04/07/2021 2:32 PM CDT Legal Sex Female 10: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 Gender Identity Female 04/07/2021 2:32 PM CDT Sexual Orientation Straight 04/07/2021 2: 32 PM CDT documented as of this encounter Plan of Treatment Not on file documented as of this encounter Visit Diagnoses Not on filedocumented in this encounter Additional Health Concerns Assessment Noted Time PHQ-9 Depression Total Score: 12 023 3:55 PM CDT documented as of this encounter Care Teams Ammonium Nitrate Crystallizer Relationship Specialty Start Date End Date No Ref-Primary, Physician PCP - General 06/09/22 06/02/23 Mariel Galindo APRN GEOMAGNETIST Assigned PCP 01/16/23 04/23/23 Nadege Jones APRN GEOMAGNETIST [address] [place] [phone] Assigned PCP 04/24/23 10/06/23 Mariel Galindo APRN GEOMAGNETIST Assigned PCP 10/07/23 11/04/23 Mariel Galindo APRN GEOMAGNETIST Assigned PCP 11/05/23 12/03/23 Mariel Galindo APRN GEOMAGNETIST Assigned PCP 12/04/23 01/03/24 Deja Mendez PA-C [address] [place] [address] Assigned PCP 01/04/24 documented as of this encounter
--- OUTSIDE RECORDS SUMMARY | 2024-07-05 13:33 | XMS_ITS | Encounter Summary ---
Author Organization [facility] Address [address] [place] [address]. [place] [address] Care Team Providers Care Latcher Name Role Phone Mateo, Mariel Stout DYE MACHINE OPERATOR ROBOTICS TECHNICIAN Primary Care Provi adam Unavailable Mateo, Mariel Stout DYE MACHINE OPERATOR ROBOTICS TECHNICIAN Unavailable Un available Samia Silverman MD Unavailable [phone] No Ref-Primary, Physician Primary Care Provider Mateo, Mariel Stout DYE MACHINE OPERATOR ROBOTICS TECHNICIAN Unavailable Un available Nadege Jones APRN ROBOTICS TECHNICIAN Unavailable [phone] Mateo, Mariel Argelia DYE MACHINE OPERATOR ROBOTICS TECHNICIAN Unavailable Un available Nadege Jones APRN ROBOTICS TECHNICIAN Unavailable [phone] Mateo, Mariel Stout DYE MACHINE OPERATOR ROBOTICS TECHNICIAN Unavailable Un available Mateo, Mariel Stout DYE MACHINE OPERATOR ROBOTICS TECHNICIAN Unavailable Un available Mateo, Mariel Stout DYE MACHINE OPERATOR ROBOTICS TECHNICIAN Unavailable Un available Deja Mendez PA-C Unavailable [phone] Encounter Details Date Type Department Care Team (Late st Contact Info) Description 03/03/2021 [facility] Medical Advice [facility] [place] [address] [place] [address] Shyela Cespedes, DRILL PRESSER Social History Tobacco Use Types Packs/Day Years Used Date Smoking Tobacco: Never Smokeless Tobacco: Never Alcohol Use Standard Drinks/Week Comments Not Currently 0 (1 standard drink = 0.6 oz pur e alcohol) wine occasionally PHQ-2 Answer Date Recorded PHQ-2 Total Score (Adult) - Positive if 3 or more points; Administer PHQ-9 if positive 0 03/06/2021 [place] Depression Scale Answer Date Recorded [place] Depression Score 16 12/04/2020 Last EPDS Self Harm Result Not on file 12/04 Comments No Sex and Gender Information Value Date Recorded Sex Assigned at Female 04/07/2021 2:32 PM CDT Legal Sex Female 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 Gender Identity Female 04/07/2021 2:32 PM CDT Sexual Orientation Straight 04/07/2021 2: 32 PM CDT documented as of this encounter Plan of Treatment Not on file documented as of this encounter Visit Diagnoses Not on filedocumented in this encounter Additional Health Concerns Assessment Noted Time PHQ-9 Depression Total Score: 10 021 7:04 AM CDT documented as of this encounter Care Teams Latcher Relationship Specialty Start Date End Date Mariel Galindo APRN CNP PCP - General Nurse Practitioner 08/13/14 06/08/22 No Ref-Primary, Physician PCP - General 06/09/22 06/02/23 Mariel Galindo APRN ROBOTICS TECHNICIAN Assigned PCP 10/21/14 04/10/22 Samia Silverman MD [address] [place] [address] Assigned OBGYN Provider 08/04/20 Mariel Galindo APRN ROBOTICS TECHNICIAN Assigned PCP 06/27/22 01/08/23 Nadege Jones APRN ROBOTICS TECHNICIAN [address] [place] [address] Assigned PCP 01/09/23 01/15/23 Mariel Galindo APRN ROBOTICS TECHNICIAN Assigned PCP 01/16/23 04/23/23 Nadege Jones APRN ROBOTICS TECHNICIAN [address] [place] [phone] Assigned PCP 04/24/23 10/06/23 Mateo, Mariel Stout APRN ROBOTICS TECHNICIAN Assigned PCP 10/07/23 11/04/23 Mateo, Mariel Stout APRN ROBOTICS TECHNICIAN Assigned PCP 11/05/23 12/03/23 Mateo, Mairel Stout APRN ROBOTICS TECHNICIAN Assigned PCP 12/04/23 01/03/24 Deja Mendez PA-C [address] [place] [address] Assigned PCP 01/04/24 documented as of this encounter
--- OUTSIDE RECORDS SUMMARY | 2024-07-05 13:33 | XMS_ITS | Encounter Summary ---
Author Organization [facility] Address [address] [place] [address]. [place] [address] Care Team Providers Care Procurement Engineer Name Role Phone No Ref-Primary, Physician Primary Care Provider Mateo, Mariel Stout APRN TREE SURGEON HELPER Unavailable Un available Nadege Jones APRN TREE SURGEON HELPER Unavailable [phone] Mateo, Mariel Stout APRN TREE SURGEON HELPER Unavailable Un available Mateo, Mariel Stout APRN TREE SURGEON HELPER Unavailable Un available Mateo, Mariel Stout APRN TREE SURGEON HELPER Unavailable Un available Deja Mendez PA-C Unavailable [phone] Reason for Visit * Reason Onset Date Comments Refill Request 02/18/2023 Encounter Details Date Type Department Care Team (Late st Contact Info) Description 02/18/2023 MyC Refill [facility] [address] [place] [address] Amanda Tolbert PA-C [address] [place] [address] Refill Request Social History Tobacco Use Types Packs/Day Years Used Date Smoking Tobacco: Never Smokeless Tobacco: Never Alcohol Use Standard Drinks/Week Comments Yes 0 (1 standard drink = 0.6 oz pur e alcohol) wine occasionally PHQ-2 Answer Date Recorded PHQ-2 Total Score (Adult) - Positive if 3 or more points; Administer PHQ-9 if positive 2 02/18/2023 [place] Depression Scale Answer Date Recorded [place] Depression Score 16 12/04/2020 Last EPDS Self Harm Result Not on file 12/04 Comments No Sex and Gender Information Value Date Recorded Sex Assigned at Female 04/07/2021 2:32 PM CDT Legal Sex Female 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 Gender Identity Female 04/07/2021 2:32 PM CDT [...] documented as of this encounter Care Teams Procurement Engineer Relationship Specialty Start Date End Date No Ref-Primary, Physician PCP - General 06/09/22 06/02/23 Mariel Galindo APRN TREE SURGEON HELPER Assigned PCP 01/16/23 04/23/23 Nadege Jones APRN TREE SURGEON HELPER [address] [place] [phone] Assigned PCP 04/24/23 10/06/23 Mariel Galindo APRN TREE SURGEON HELPER Assigned PCP 10/07/23 11/04/23 Mariel Galindo APRN TREE SURGEON HELPER Assigned PCP 11/05/23 12/03/23 Mariel Galindo APRN TREE SURGEON HELPER Assigned PCP 12/04/23 01/03/24 Deja Mendez PA-C [address] [place] [address] Assigned PCP 01/04/24 documented as of this encounter
--- OUTSIDE RECORDS SUMMARY | 2024-07-05 13:33 | XMS_ITS | Encounter Summary ---
Author Organization [facility] Address [address] [place] [address] Care Team Providers Care Stabilizing Machine Operator Name Role Phone Mateo, Mariel Stout MACHINE STACKER COTTON BALL MACHINE TENDER Primary Care Provi adam Unavailable Mateo, Mariel Stout MACHINE STACKER COTTON BALL MACHINE TENDER Unavailable Un available Samia Silverman MD Unavailable [phone] No Ref-Primary, Physician Primary Care Provider Mateo, Mariel Stout MACHINE STACKER COTTON BALL MACHINE TENDER Unavailable Un available Nadege Jones APRN COTTON BALL MACHINE TENDER Unavailable Mateo, Mariel Argelia MACHINE STACKER COTTON BALL MACHINE TENDER Unavailable Un available Nadege Jones APRN COTTON BALL MACHINE TENDER Unavailable Mateo, Mariel Stout APRN COTTON BALL MACHINE TENDER Unavailable Un available Mateo, Mariel Stout APRN COTTON BALL MACHINE TENDER Unavailable Un available Mateo, Mariel Stout APRN COTTON BALL MACHINE TENDER Unavailable Un available Deja Mendez PA-C Unavailable [phone] Encounter Details Date Type Department Care Team (Late st Contact Info) Description 09/16/2020 [facility] [address] [address] Sheyla Cespedes, PASTRYCOOK Social History Tobacco Use Types Packs/Day Years Used Date Smoking Tobacco: Never Smokeless Tobacco: Never Alcohol Use Standard Drinks/Week Comments Yes 0 (1 standard drink = 0.6 oz pur e alcohol) wine occasionally PHQ-2 Answer Date Recorded PHQ-2 Score 2 07/28/2019 Comments Yes Sex and Gender Information Value Date Recorded Sex Assigned at Female 04/07/2021 2:32 PM CDT 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 Gender Identity Female 04/07/2021 2:32 PM CDT Sexual Orientation Straight 04/07/2021 2: 32 PM CDT documented as of this encounter Plan of Treatment Not on file documented as of this encounter Visit Diagnoses Not on filedocumented in this encounter Additional Health Concerns Assessment Noted Time PHQ-9 Depression Total Score: 10 020 2:27 PM CDT documented as of this encounter Care Teams Stabilizing Machine Operator Relationship Specialty Start Date End Date Mariel Galindo APRN CNP PCP - General Nurse Practitioner 08/13/14 06/08/22 No Ref-Primary, Physician PCP - General 06/09/22 06/02/23 Mariel Galindo APRN CNP Assigned PCP 10/21/14 04/10/22 Samia Silverman MD [address] [id number] Assigned OBGYN Provider 08/04/20 Mariel Galindo APRN COTTON BALL MACHINE TENDER Assigned PCP 06/27/22 01/08/23 Nadege Jones APRN COTTON BALL MACHINE TENDER [address] [place] [phone] Assigned PCP 01/09/23 01/15/23 Mariel Galindo APRN COTTON BALL MACHINE TENDER Assigned PCP 01/16/23 04/23/23 Nadege Jones APRN COTTON BALL MACHINE TENDER [address] [place] [address] Assigned PCP 04/24/23 10/06/23 MateoMariel meng APRN COTTON BALL MACHINE TENDER Assigned PCP 10/07/23 11/04/23 MateoMariel meng APRN COTTON BALL MACHINE TENDER Assigned PCP 11/05/23 12/03/23 MateoMariel meng APRN COTTON BALL MACHINE TENDER Assigned PCP 12/04/23 01/03/24 Deja Mendez PA-C [address] [place] [phone] Assigned PCP 01/04/24 documented as of this encounter
--- OUTSIDE RECORDS SUMMARY | 2024-07-05 13:33 | XMS_ITS | Encounter Summary ---
Author Organization [facility] Address [address] [place] [address] Care Team Providers Care Accident Investigator Name Role Phone Mateo, Mariel Stout APRN, CNP Primary Care Provi adam Unavailable Mateo, Mariel Stout APRN [employer] Unavailable Un available Samia Silverman MD Unavailable No Ref-Primary, Physician Primary Care Provider Mateo, Mariel Stout APRN [employer] Unavailable Un available Nadege Jones APRN [employer] Unavailable [phone] Mateo, Mariel Stout APRN [employer] Unavailable Un available Nadege Jones APRN [employer] Unavailable [phone] Mateo, Mariel Stout APRN [employer] Unavailable Un available Mateo, Mariel Stout APRN [employer] Unavailable Un available MateoMariel meng APRN [employer] Unavailable Un available Deja Mendez PA-C Unavailable [phone] Reason for Visit * Reason Onset Date Comments Refill Request 03/06/2021 Encounter Details Date Type Department Care Team (Late st Contact Info) Description 03/06/2021 [facility] [address] [address] Mariel Galindo APRN CNP Refill Request Social History Tobacco Use Types Packs/Day Years Used Date Smoking Tobacco: Never Smokeless Tobacco: Never Alcohol Use Standard Drinks/Week Comments Not Currently 0 (1 standard drink = 0.6 oz pur e alcohol) wine occasionally PHQ-2 Answer Date Recorded PHQ-2 Total Score (Adult) - Positive if 3 or more points; Administer PHQ-9 if positive 0 03/06/2021 [place] Depression Scale Answer Date Recorded [place] Depression Score 16 12/04/2020 Last EPDS Self Harm Result Not on file 12/04 Comments No Sex and Gender Information Value Date Recorded Sex Assigned at Female 04/07/2021 2:32 PM CDT Legal Sex Female 10:33 AM TRUST OFFICER Gender Identity Female 04/07/2021 2:32 PM CDT [...] Drug not on the G refill protocol Failing PHQ9 Trish Salvador RN [...] documented as of this encounter Care Teams Accident Investigator Relationship Specialty Start Date End Date Mariel Galindo APRN [employer] PCP - General Nurse Practitioner 08/13/14 06/08/22 No Ref-Primary, Physician PCP - General 06/09/22 06/02/23 Mateo, Mariel Stout APRN [employer] Assigned PCP 10/21/14 04/10/22 Samia Silverman MD [address] [place] [address] Assigned OBGYN Provider 08/04/20 Mateo, Mariel Stout APRN [employer] Assigned PCP 06/27/22 01/08/23 Nadege Jones APRN [employer] [address] [place] [phone] Assigned PCP 01/09/23 01/15/23 Mateo, Mariel Stout APRN [employer] Assigned PCP 01/16/23 04/23/23 Nadege Jones APRN [employer] [address] [place] [phone] Assigned PCP 04/24/23 10/06/23 Mateo, Mariel Stout APRN [employer] Assigned PCP 10/07/23 11/04/23 Mateo, Mariel Stout APRN [employer] Assigned PCP 11/05/23 12/03/23 Mateo, Mariel Stout APRN [employer] Assigned PCP 12/04/23 01/03/24 Deja Mendez PA-C [address] [place] [address] Assigned PCP 01/04/24 documented as of this encounter
--- OUTSIDE RECORDS SUMMARY | 2024-07-05 13:33 | XMS_ITS | Encounter Summary ---
Author Organization [place] Address [address] [place] [address] Care Team Providers Care Demand Planner Name Role Phone Mateo, Mariel Stout TRAVEL COORDINATOR ART INSTALLER Primary Care Provi adam Unavailable Mateo, Mariel Stout TRAVEL COORDINATOR ART INSTALLER Unavailable Un available No Ref-Primary, Physician Primary Care Provider Mateo, Mariel Stout APRN ART INSTALLER Unavailable Un available Nadege Jones APRN ART INSTALLER Unavailable [phone] Mateo, Mariel Stout APRN ART INSTALLER Unavailable Un available Nadege Jones APRN ART INSTALLER Unavailable Mateo, Mariel Stout APRN ART INSTALLER Unavailable Un available Mateo, Mariel Stout APRN ART INSTALLER Unavailable Un available Mateo, Mariel Stout APRN ART INSTALLER Unavailable Un available Deja Mendez PA-C Unavailable [phone] Encounter Details Date Type Department Care Team (Late st Contact Info) Description 02/10/2022 [facility] [address] [place] [address] Tamra Chavez PA-C [address] [place], [place] [id number] Social History Tobacco Use Types Packs/Day Years Used Date Smoking Tobacco: Never Smokeless Tobacco: Never Alcohol Use Standard Drinks/Week Comments Yes 0 (1 standard drink = 0.6 oz pur e alcohol) wine occasionally PHQ-2 Answer Date Recorded PHQ-2 Score 2 11/21/2021 [place] Depression Scale Answer Date Recorded [place] Depression Score 16 12/04/2020 Last EPDS Self Harm Result Not on file 12/04 Comments No Sex and Gender Information Value Date Recorded Sex Assigned at Female 04/07/2021 2:32 PM CDT Legal Sex Female 10:33 AM CASINO CAGE MANAGER Gender Identity Female 04/07/2021 2:32 PM [...] Depression Total Score: 13 022 7:03 AM CASINO CAGE MANAGER documented as of this encounter Care Teams Demand Planner Relationship Specialty Start Date End Date Mariel Galindo APRN CNP PCP - General Nurse Practitioner 08/13/14 06/08/22 No Ref-Primary, Physician PCP - General 06/09/22 06/02/23 Mariel Galindo APRN CNP Assigned PCP 10/21/14 04/10/22 Mariel Galindo APRN CNP Assigned PCP 06/27/22 01/08/23 Nadege Jones APRN CNP [address] [place] [id number] Assigned PCP 01/09/23 01/15/23 Mariel Galindo APRN CNP Assigned PCP 01/16/23 04/23/23 Nadege Jones APRN CNP [address] [place] [phone] Assigned PCP 04/24/23 10/06/23 Mateo, Mariel Stout APRN ART INSTALLER Assigned PCP 10/07/23 11/04/23 Mateo, Mariel Stout APRN ART INSTALLER Assigned PCP 11/05/23 12/03/23 Mateo, Mariel Stout APRN ART INSTALLER Assigned PCP 12/04/23 01/03/24 Deja Mendez PA-C [address] [facility] [place] [address] Assigned PCP 01/04/24 documented as of this encounter
--- OUTSIDE RECORDS SUMMARY | 2024-07-05 13:33 | XMS_ITS | Clinical Summary ---
Author Organization [place] Address [address] [place] [address] Care Team Providers Care Tentmaker Name Role Phone Deja Mendez PA-C Unavailable [phone] Allergies No known active allergies Medications hydrOXYzine (ATARAX) 25 MG tabletIndications :Anxiety Take 0.5-1 tablets (12.5-25 mg) by mouth 3 times daily as needed for anxiety 30 tablet 3 Active Additional Information Patient not taking.Reported on 12/14/2023 FLUoxetine (PROZAC) 40 MG capsuleIndication s:Moderate major depression (H) Take 1 capsule (40 mg) by mouth daily 90 capsule 1 3 Active ADDERALL XR 10 MG 24 hr capsuleIndication s:ADHD (attention deficit hyperactivity disorder), combined type TAKE ONE CAPSULE BY MOUTH ONCE DAILY 30 capsule 4 Active ADDERALL XR 30 MG 24 hr capsuleIndication s:ADHD (attention deficit hyperactivity disorder), combined type TAKE ONE CAPSULE BY MOUTH ONCE DAILY 30 capsule 4 Active amphetamine-dextr oamphetamine (ADDERALL XR) 10 MG 24 hr capsuleIndication s:ADHD (attention deficit hyperactivity disorder), combined type Take 1 capsule (10 mg) by mouth daily 30 capsule 4 Active amphetamine-dextr oamphetamine (ADDERALL XR) 30 MG 24 hr capsuleIndication s:ADHD (attention deficit hyperactivity disorder), combined type Take 1 capsule (30 mg) by mouth daily 30 capsule 4 Active levothyroxine (SYNTHROID/LEVOTH ROID) 25 MCG tabletIndications :Hypothyroidism, unspecified type Take 1 tablet (25 mcg) by mouth daily 90 tablet 1 4 Active citalopram (CELEXA) 10 MG tabletIndications :Moderate major depression (H),Anxiety Take 1 tablet (10 mg) by mouth daily 30 tablet 4 Active Active Problems Problem Noted Date Diagnosed Date Controlled substance agreement signed 11/24/2022 Cervical high 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 03/15/18 NIL, +HR HPV, not 16/18. Plan colp 10/06/18 Patient is lost to pap tracking follow-up. 07/28/19 NIL, +HR HPV, not 16/18. Plan [place] 06/11/20 Patient is lost to pap tracking [...] 01/01/2016 Red blood cell antibody positive 12/04/2014 Overview (12/04/2014): Unidentified Antibody Present Antibody with no identifiable specific reactivity. ADHD (attention deficit hype ractivity disorder), combined type 07/04/2013 Overview (06/28/2019): Patient is followed by YAZMIN GALINDO for ongoing prescription of stimulants. All refills should be approved by this provider, or covering partner. Medication(s): GENERIC ADDERALL 10 MG. And Generic Adderall XR 30 MG Maximum quantity per month: 30 Clinic visit frequency required: Q 3 months Controlled substance agreement on file: Date(s): 01/01/16 Neuropsych evaluation for ADD completed: UNKNOWN Last [facility] website verification: 06/28/19 [email or web address] Assessment & Plan (05/10/2017 6:36 PM CDT): Patient is followed by YAZMIN GALINDO for ongoing prescription of stimulants. All refills should be approved by this provider, or covering partner. Medication(s): amphetamine-dextroamphetamine (ADDERALL XR) 30 MG per 24 hr capsule. Maximum quantity per month: 30 Clinic visit frequency required: Q 6 months Controlled substance agreement on file: No Neuropsych evaluation for ADD completed: No Last [facility] website verification: done on 05.10.17 [email or web address] CARDIOVASCULAR SCREENING; LDL GOAL LESS THAN 160 [...] 01/01/2016 Rubella non-immune status, antepartum 12/04/2014 10/23/2016 Overview (12/04/2014): Rubella immunity equivocal Encounter for supervision of other normal 11/28/2014 06/19/2015 Overview (07/15/2015): Diagnosis updated by automated process. Provider to [...] declined 04/20/2023 How often do you attend protestant or presybeterian serv ices? Never 04/20/2023 Do you belong to any clubs o r organizations such as protestant groups, unions, fraternal or athletic groups, or [...] Answer Date Recorded PHQ-2 Score 3 12/14/2023 [facility] of Occupat ional Health - Occupational Stress [...] a long term (including now)? No 04/20/2023 [place] Depression Scale Answer Date Recorded [place] Depression Score 16 12/04/2020 Last EPDS Self Harm Result Not on file 12/04 Adolescent Education Answer Date Record ed Getting School Help Needed Not on file 06/04 Comments No Sex and Gender Information Value Date Recorded Sex Assigned at Female 04/07/2021 2:32 PM CDT Legal Sex Female 10:33 AM DRUG ABUSE COUNSELOR Gender Identity Female 04/07/2021 2:32 PM CDT [...] Additional history exists PAP FOLLOW-UP 11/21/2022 11/21/2021, 09/0 09/2019, 05/14/2020, Additional history exists TSH W/FREE [...] TYPES DNA CERVICAL Routine 11/21/2021 8:09 AM DRUG ABUSE COUNSELOR Cervical cancer screening GYNECOLOGIC CYTOLOGY Routine 11/21/2021 8:09 AM DRUG ABUSE COUNSELOR Cervical cancer screening HIV ANTIGEN ANTIBODY COMBO [...] newborns, infants, and children. Nadege Jones APRN CABLE MACHINE OPERATOR LAB - BLOOD ORDERABLES F inal Result SPECIALTY CORE/PROT/ENDO Specialty Core/Prot/Endo [address] [facility] [address] [facility], [address] [address], [facility] [phone] * Basic metabolic panel (Ca, Cl, CO2, Creat, Gluc, K, Na, BUN) (04/20/2023 3:45 PM CDT) Pathologist [facility] Sodium 137 136 - 145 mmol/L 04/21/2023 [...] Nadege Jones APRN, CNP LAB - BLOOD ORDERABLES F inal Result Performing Organization Address City/[facility]/ZIP Co de Phone Number LABORATORY [facility] [place] Core Lab [address] [facility], [address] [address], [facility] [phone] * TSH WITH FREE T4 REFLEX (11/24/2022 11:06 AM CDT) TSH 1.31 0.30 - 4.20 uIU/mL 11/24/2022 5:51 PM CDT [facility]ATORY Blood BLOOD SPECIMEN / Unknown Venipuncture / Unknown 11/24/2022 11:06 AM CDT 11/24/2022 11:10 AM CDT Nadege Jones APRN, CNP LAB - BLOOD ORDERABLES F inal Result Performing Organization Address City/[facility] Co de Phone Number LABORATORY [facility] Core Lab [address] [facility], [address] [address], [facility] [phone] * Pap Screen with HPV - recommended age 30 - 65 years (11/21/2021 8:09 AM DRUG ABUSE COUNSELOR) Interpretation Negative for Intraepithelial Lesion or Malignancy [...] component of this testing was completed at [facility] 11/25/2021 9:24 AM CDT SPECIALTY LABS Brushing CERVIX UTERI STRUCTURE / Unknown 11/21/2021 8:09 AM DRUG ABUSE COUNSELOR 11/21/2021 8:24 AM DRUG ABUSE COUNSELOR Yazmin Galindo APRN [facility] Al al Result SPECIALTY LABS Specialty Lab [address] [facility], [address] [place] [address], [facility] [phone] * HPV High Risk Types DNA Cervical (11/21/2021 8:09 AM DRUG ABUSE COUNSELOR) Other HR HPV Negative Negative 11/26/2021 2:10 PM CDT [facility] DIAGNOSTICS HPV16 DNA Negative Negative 11/26/2021 2:10 PM CDT MOLECULAR DIAGNOSTICS HPV18 DNA Negative Negative 11/26/2021 2:10 PM CDT MOLECULAR DIAGNOSTICS FINAL DIAGNOSIS This patient's sample is negative for HPV DNA. This test was developed and its performance characteristics determined by the [facility], Molecular Diagnostics Laboratory. It has not been [...] Non-blood Collection / Unknown 11/21/2021 8:09 AM DRUG ABUSE COUNSELOR 11/25/2021 3:59 PM CDT us Yazmin Galindo EMERGENCY MEDCL EMT CABLE MACHINE OPERATOR LAB - BLOOD ORDERAB LES Final Result MOLECULAR DIAGNOSTICS Molecular Diagnostics [address] [facility], [address] [address], [facility] [phone] * HIV Antigen Antibody Combo (05/20/2016) HIV Antigen Antibody Combo Negative Blood specimen (specimen) us Patient Reported LAB - BLOOD ORDERABLES Final Re sult from Last 3 Months or Most Recently Relevant to Health Maintenance Care Teams Tentmaker Relationship Specialty Start Date End Date Deja Mendez PA-C [address] [place] [phone] Assigned PCP 01/04/24
--- OUTSIDE RECORDS SUMMARY | 2024-07-05 13:33 | XMS_ITS | Encounter Summary ---
Author Organization [place] Address [address] [place] [address] Care Team Providers Care Clinical Scientist Name Role Phone Mateo, Mariel Stout CORPORATE QUALITY ENGINEER MIGRATORY FARM HAND Primary Care Provi adam Unavailable Mateo, Mariel Stout CORPORATE QUALITY ENGINEER MIGRATORY FARM HAND Unavailable Un available Samia Silverman MD Unavailable No Ref-Primary, Physician Primary Care Provider Mateo, Mariel Stout APRN MIGRATORY FARM HAND Unavailable Un available Nadege Jones APRN MIGRATORY FARM HAND Unavailable Mateo, Mariel Stout APRN MIGRATORY FARM HAND Unavailable Un available Nadege Jones APRN MIGRATORY FARM HAND Unavailable [phone] Mateo, Mariel Stout APRN MIGRATORY FARM HAND Unavailable Un available Mateo, Mariel Stout APRN MIGRATORY FARM HAND Unavailable Un available MateoMariel APRN MIGRATORY FARM HAND Unavailable Un available Deja Mendez PA-C Unavailable [phone] Encounter Details Date Type Department Care Team (Latest Contact Info) Description 03/07/2020 Historic Results Social History Tobacco Use Types Packs/Day Years Used Date Smoking Tobacco: Never Smokeless Tobacco: Never Alcohol Use Standard Drinks/Week Comments Yes 0 (1 standard drink = 0.6 oz pur e alcohol) wine occasionally PHQ-2 Answer Date Recorded PHQ-2 Score 2 07/28/2019 Comments No Sex and Gender Information Value Date Recorded Sex Assigned at Female 04/07/2021 2:32 PM CDT Legal Sex Female 10:33 AM CUSTOMER EXPERT Gender Identity Female 04/07/2021 2:32 PM CDT [...] documented as of this encounter Care Teams Clinical Scientist Relationship Specialty Start Date End Date Mariel Galindo APRN CNP PCP - General Nurse Practitioner 08/13/14 06/08/22 No Ref-Primary, Physician PCP - General 06/09/22 06/02/23 Mariel Galindo APRN MIGRATORY FARM HAND Assigned PCP 10/21/14 04/10/22 Samia Silverman MD [address] [place] [address] Assigned OBGYN Provider 08/04/20 Mariel Galindo APRN MIGRATORY FARM HAND Assigned PCP 06/27/22 01/08/23 Nadege Jones APRN MIGRATORY FARM HAND [address] [place] [address] Assigned PCP 01/09/23 01/15/23 Mariel Galindo APRN MIGRATORY FARM HAND Assigned PCP 01/16/23 04/23/23 Nadege Jones APRN MIGRATORY FARM HAND [address] [place] [address] Assigned PCP 04/24/23 10/06/23 Mariel Galindo APRN MIGRATORY FARM HAND Assigned PCP 10/07/23 11/04/23 MateoMariel meng APRN MIGRATORY FARM HAND Assigned PCP 11/05/23 12/03/23 Mariel Galindo APRN MIGRATORY FARM HAND Assigned PCP 12/04/23 01/03/24 Deja Mendez PA-C [address] [place] [address] Assigned PCP 01/04/24 documented as of this encounter
--- OUTSIDE RECORDS SUMMARY | 2024-07-05 13:33 | XMS_ITS | Encounter Summary ---
Author Organization [place] Address [address] [place] [address]. [place] [address] Care Team Providers Care Brusher Machine Name Role Phone Mateo, Mariel Stout DISTRICT ATTORNEY PHYSICAL SCIENTIST Primary Care Provi adam Unavailable Mateo, Mariel Stout DISTRICT ATTORNEY PHYSICAL SCIENTIST Unavailable Un available Samia Silverman MD Unavailable No Ref-Primary, Physician Primary Care Provider Mateo, Mariel Stout DISTRICT ATTORNEY PHYSICAL SCIENTIST Unavailable Un available Nadege Jones APRN PHYSICAL SCIENTIST Unavailable Mateo, Mariel Argelia DISTRICT ATTORNEY PHYSICAL SCIENTIST Unavailable Un available Nadege Jones APRN PHYSICAL SCIENTIST Unavailable [phone] Mateo, Mariel Stout APRN PHYSICAL SCIENTIST Unavailable Un available Mateo, Mariel Stout APRN PHYSICAL SCIENTIST Unavailable Un available Mateo, Mariel Stout APRN PHYSICAL SCIENTIST Unavailable Un available Deja Mendez PA-C Unavailable [phone] Encounter Details Date Type Department Care Team (Late st Contact Info) Description 09/27/2019 [facility] Advice [address] [place] [address] Mimi Sun Social History Tobacco [...] PM CDT Legal Sex Female 10:33 AM DRYWALL HANGER Gender Identity Female 04/07/2021 2:32 PM CDT Sexual Orientation Straight 04/07/2021 2: 32 PM CDT documented as of this encounter Plan of Treatment Not on file documented as of this encounter Visit Diagnoses Not on filedocumented in this encounter Additional Health Concerns Assessment Noted Time PHQ-9 Depression Total Score: 9 07/28/20 19 8:28 AM DRYWALL HANGER documented as of this encounter Care Teams Brusher Machine Relationship Specialty Start Date End Date Mariel Galindo APRN CNP PCP - General Nurse Practitioner 08/13/14 06/08/22 No Ref-Primary, Physician PCP - General 06/09/22 06/02/23 Mariel Galindo APRN PHYSICAL SCIENTIST Assigned PCP 10/21/14 04/10/22 Samia Silverman MD [address] [address] Assigned OBGYN Provider 08/04/20 Mariel Galindo APRN PHYSICAL SCIENTIST Assigned PCP 06/27/22 01/08/23 Nadege Jones APRN PHYSICAL SCIENTIST [address] [place] [phone] Assigned PCP 01/09/23 01/15/23 Mariel Galindo APRN PHYSICAL SCIENTIST Assigned PCP 01/16/23 04/23/23 Nadege Jones APRN PHYSICAL SCIENTIST [address] [place] [phone] Assigned PCP 04/24/23 10/06/23 MateoMariel meng APRN PHYSICAL SCIENTIST Assigned PCP 10/07/23 11/04/23 MateoMariel meng APRN PHYSICAL SCIENTIST Assigned PCP 11/05/23 12/03/23 MateoMariel meng APRN PHYSICAL SCIENTIST Assigned PCP 12/04/23 01/03/24 Deja Mendez PA-C [address] [place] [address] Assigned PCP 01/04/24 documented as of this encounter
--- OUTSIDE RECORDS SUMMARY | 2024-07-05 13:33 | XMS_ITS | Encounter Summary ---
Author Organization [place] Address [address] [place] [address] Care Team Providers Care Director Of Sustainability Name Role Phone Mariel Galindo APRN, CNP Primary Care Provi adam Unavailable Mateo, Mariel Stout APRN SOLAR SALES SPECIALIST Unavailable Un available Samia Silverman MD Unavailable [phone] No Ref-Primary, Physician Primary Care Provider Mateo, Mariel Stout APRN SOLAR SALES SPECIALIST Unavailable Un available Nadege Jones APRN SOLAR SALES SPECIALIST Unavailable Mateo, Mariel Stout APRN SOLAR SALES SPECIALIST Unavailable Un available Nadege Jones APRN SOLAR SALES SPECIALIST Unavailable Mateo, Mariel Stout APRN SOLAR SALES SPECIALIST Unavailable Un available Mateo, Mariel Stout APRN SOLAR SALES SPECIALIST Unavailable Un available MateoMariel meng APRN SOLAR SALES SPECIALIST Unavailable Un available Deja Mendez PA-C Unavailable [phone] Reason for Visit * Reason Onset Date Comments Refill Request 06/06/2021 Encounter Details Date Type Department Care Team (Late st Contact Info) Description 06/06/2021 [facility] [address] [address] Mariel Galindo APRN CNP Refill Request Social History Tobacco Use Types Packs/Day Years Used Date Smoking Tobacco: Never Smokeless Tobacco: Never Alcohol Use Standard Drinks/Week Comments Not Currently 0 (1 standard drink = 0.6 oz pur e alcohol) wine occasionally PHQ-2 Answer Date Recorded PHQ-2 Total Score (Adult) - Positive if 3 or more points; Administer PHQ-9 if positive 0 04/07/2021 [place] Depression Scale Answer Date Recorded [place] Depression Score 16 12/04/2020 Last EPDS Self Harm Result Not on file 12/04 Comments No Sex and Gender Information Value Date Recorded Sex Assigned at Female 04/07/2021 2:32 PM CDT Legal Sex Female 10:33 AM BEATER BOSS Gender Identity Female 04/07/2021 2:32 PM CDT [...] documented as of this encounter Care Teams Director Of Sustainability Relationship Specialty Start Date End Date Mariel Galindo APRN SOLAR SALES SPECIALIST PCP - General Nurse Practitioner 08/13/14 06/08/22 No Ref-Primary, Physician PCP - General 06/09/22 06/02/23 Mariel Galindo APRN SOLAR SALES SPECIALIST Assigned PCP 10/21/14 04/10/22 Samia Silverman MD [address] [address] Assigned OBGYN Provider 08/04/20 Mateo, Mariel Stout APRN SOLAR SALES SPECIALIST Assigned PCP 06/27/22 01/08/23 Nadege Jones APRN SOLAR SALES SPECIALIST [address], [place] [phone] Assigned PCP 01/09/23 01/15/23 Mateo, Mariel Stout APRN SOLAR SALES SPECIALIST Assigned PCP 01/16/23 04/23/23 Nadege Jones APRN SOLAR SALES SPECIALIST [address], [place] [phone] Assigned PCP 04/24/23 10/06/23 Mateo, Mariel Stout APRN SOLAR SALES SPECIALIST Assigned PCP 10/07/23 11/04/23 Mateo, Mariel Stout APRN SOLAR SALES SPECIALIST Assigned PCP 11/05/23 12/03/23 Mateo, Mariel Stout APRN SOLAR SALES SPECIALIST Assigned PCP 12/04/23 01/03/24 Deja Mendez PA-C [address] [place] [address] Assigned PCP 01/04/24 documented as of this encounter
--- OUTSIDE RECORDS SUMMARY | 2024-07-05 13:33 | XMS_ITS | Encounter Summary ---
Author Organization [place] Address [address] [place] [address] Care Team Providers Care Process Coach Name Role Phone No Ref-Primary, Physician Primary Care Provider MateoMariel ANALYTICS MANAGER ORACLE WMS CONSULTANT Unavailable Un available Nadege Jones APRN ORACLE WMS CONSULTANT Unavailable [phone] MateoMariel ANALYTICS MANAGER ORACLE WMS CONSULTANT Unavailable Un available MateoMariel APRN ORACLE WMS CONSULTANT Unavailable Un available MateoMariel APRN ORACLE WMS CONSULTANT Unavailable Un available Deja Mendez PA-C Unavailable [phone] Encounter Details Date Type Department Care Team (Late st Contact Info) Description 04/16/2023 [facility] Medical Advice [facility] [address] [place] [address] Kimberly Montanez, [facility] Social History [...] declined 04/20/2023 How often do you attend yazidi or anabaptist serv ices? Never 04/20/2023 Do you belong to any clubs o r organizations such as yazidi groups, unions, fraternal or athletic groups, or [...] Answer Date Recorded PHQ-2 Score 4 04/20/2023 [facility] of Occupat ional Health - Occupational Stress [...] in a retirement (including now)? No 04/20/2023 [place] Depression Scale Answer Date Recorded [place] Depression Score 16 12/04/2020 Last EPDS Self Harm Result Not on file 12/04 Comments No Sex and Gender Information Value Date Recorded Sex Assigned at Female 04/07/2021 2:32 PM CDT Legal Sex Female 10:33 AM SHAREPOINT MANAGER Gender Identity Female 04/07/2021 2:32 PM CDT Sexual Orientation Straight 04/07/2021 2: 32 PM CDT documented as of this encounter Plan of Treatment Not on file documented as of this encounter Visit Diagnoses Not on filedocumented in this encounter Additional Health Concerns Assessment Noted Time PHQ-9 Depression Total Score: 12 023 3:55 PM CDT documented as of this encounter Care Teams Process Coach Relationship Specialty Start Date End Date No Ref-Primary, Physician PCP - General 06/09/22 06/02/23 Mariel Galindo APRN ORACLE WMS CONSULTANT Assigned PCP 01/16/23 04/23/23 Nadege Jones APRN ORACLE WMS CONSULTANT [address] [place] [address] Assigned PCP 04/24/23 10/06/23 Mareil Galindo APRN ORACLE WMS CONSULTANT Assigned PCP 10/07/23 11/04/23 Mariel Galindo APRN ORACLE WMS CONSULTANT Assigned PCP 11/05/23 12/03/23 Mariel Galindo APRN ORACLE WMS CONSULTANT Assigned PCP 12/04/23 01/03/24 Deja Mendez PA-C [address] [place] [phone] Assigned PCP 01/04/24 documented as of this encounter
--- OUTSIDE RECORDS SUMMARY | 2024-07-05 13:33 | XMS_ITS | Referral Summary ---
Author Organization [facility] Address [address] [place] [address] Care Team Providers Care Hat Renovator Name Role Phone Deja Mendez PA-C Unavailable [phone] Allergies No known active allergies Medications [...] 07/28/19 NIL, +HR HPV, not 16/18. Plan Twisp 06/11/20 Patient is lost to pap tracking [...] Neuropsych evaluation for ADD completed: UNKNOWN Last [facility] website verification: 06/28/19 [email or web address] Assessment & Plan (05/10/2017 6:36 PM CDT): [...] Neuropsych evaluation for ADD completed: No Last [facility] website verification: done on 05.10.17 [email or web address] [email or web address] SCREENING; LDL GOAL LESS THAN 160 [...] declined 04/20/2023 How often do you attend anabaptist or caodaism serv ices? Never 04/20/2023 Do you belong to any clubs o r organizations such as anabaptist groups, unions, fraternal or athletic groups, or [...] Answer Date Recorded PHQ-2 Score 3 12/14/2023 [facility] [place] of Occupat ional Health - Occupational Stress [...] place to sleep or slept in a senior living (including now)? No 04/20/2023 [place] Depression Scale Answer Date Recorded [place] Depression Score 16 12/04/2020 Last EPDS Self Harm Result Not on file 12/04 Adolescent Education Answer Date Record ed Getting School Help Needed Not on file 06/04 Comments No Sex and Gender Information Value Date Recorded Sex Assigned at Female 04/07/2021 2:32 PM CDT Legal Sex Female 10:33 AM COLLEGE ADVISOR Gender Identity Female 04/07/2021 2:32 PM CDT [...] TYPES DNA CERVICAL Routine 11/21/2021 8:09 AM COLLEGE ADVISOR Cervical cancer screening GYNECOLOGIC CYTOLOGY Routine 11/21/2021 8:09 AM COLLEGE ADVISOR Cervical cancer screening HIV ANTIGEN ANTIBODY COMBO [...] newborns, infants, and children. Nadege Jones APRN NEWS WRITER LAB - BLOOD ORDERABLES F inal Result [facility] SPECIALTY CORE/PROT/ENDO UM Specialty Core/Prot/Endo [address] [facility] [address] [facility], Room [address] [place], [place] [address] [phone] * Basic metabolic panel (Ca, Cl, CO2, Creat, Gluc, K, Na, BUN) (04/20/2023 3:45 PM CDT) [facility] Sodium 137 136 - 145 mmol/L 04/21/2023 [...] 3:45 PM CDT 04/20/2023 3:45 PM CDT us Nadege Jones APRN NEWS WRITER LAB - BLOOD ORDERABLES F inal Result [facility] [place] [facility] [address] [facility] [address] [facility], [address] [address], [facility] [phone] * TSH WITH FREE T4 REFLEX (11/24/2022 11:06 AM CDT) TSH 1.31 0.30 - 4.20 uIU/mL 11/24/2022 5:51 PM CDT [facility] Blood BLOOD SPECIMEN / Unknown Venipuncture / Unknown 11/24/2022 11:06 AM CDT 11/24/2022 11:10 AM CDT us Nadege Jones APRN NEWS WRITER LAB - BLOOD ORDERABLES F inal Result [facility] [place] [facility] 500 [facility], Room [address] [place] [address], [facility] [phone] * Pap Screen with HPV - recommended age 30 - 65 years (11/21/2021 8:09 AM COLLEGE ADVISOR) Interpretation Negative for Intraepithelial Lesion or Malignancy [...] component of this testing was completed at [facility] 11/25/2021 9:24 AM CDT SPECIALTY LABS Brushing CERVIX UTERI STRUCTURE / Unknown 11/21/2021 8:09 AM COLLEGE ADVISOR 11/21/2021 8:24 AM COLLEGE ADVISOR Yazmin Galindo APRN NEWS WRITER YAYA - CHRISTIAN Al al Result SPECIALTY LABS Specialty Lab 500 [facility] J [facility], [address] [address], [facility] [phone] * HPV High Risk Types DNA Cervical (11/21/2021 8:09 AM COLLEGE ADVISOR) Other HR HPV Negative Negative 11/26/2021 2:10 PM CDT [facility] HPV16 DNA Negative Negative 11/26/2021 2:10 PM CDT [facility] HPV18 DNA Negative Negative 11/26/2021 2:10 PM CDT [facility] FINAL DIAGNOSIS This patient's sample is negative for HPV DNA. This test was developed and its performance characteristics determined by the [facility], Molecular Diagnostics Laboratory. It has not [...] Non-blood Collection / Unknown 11/21/2021 8:09 AM COLLEGE ADVISOR 11/25/2021 3:59 PM CDT Yazmin Galindo APRN, CNP LAB - BLOOD ORDERAB LES Final Result [facility] [address], [address] [place] [address], [facility] [phone] * HIV Antigen Antibody Combo (05/20/2016) HIV Antigen Antibody Combo Negative Blood specimen (specimen) us Patient Reported LAB - BLOOD ORDERABLES Final Re sult from Last 3 Months or Most Recently Relevant to Health Maintenance Care Teams Hat Renovator Relationship Specialty Start Date End Date Deja Mendez PA-C [address] [place] [phone] Assigned PCP 01/04/24
--- OUTSIDE RECORDS SUMMARY | 2024-07-05 13:33 | XMS_ITS | Encounter Summary ---
Author Organization [facility] Address [address] [place] [address] Care Team Providers Care Active Directory Specialist Name Role Phone Mateo, Mariel Stout APRN, CNP Primary Care Provi adam Unavailable Mateo, Mariel Stout APRN CORPORATE REPRESENTATIVE Unavailable Un available Samia Silverman MD Unavailable [phone] No Ref-Primary, Physician Primary Care Provider Mateo, Mariel Stout APRN CORPORATE REPRESENTATIVE Unavailable Un available Nadege Jones APRN CORPORATE REPRESENTATIVE Unavailable Mateo, Mariel Stout APRN CORPORATE REPRESENTATIVE Unavailable Un available Nadege Jones APRN CORPORATE REPRESENTATIVE Unavailable Mateo, Mariel Stout APRN CORPORATE REPRESENTATIVE Unavailable Un available Mateo, Mariel Stout APRN CORPORATE REPRESENTATIVE Unavailable Un available MateoMariel meng APRN CORPORATE REPRESENTATIVE Unavailable Un available Deja Mendez PA-C Unavailable [phone] Reason for Visit * Reason Comments Medication Refill Encounter Details Date Type Department Care Team (Late st Contact Info) Description 02/02/[address] [address] Mariel Galindo APRN CNP Medication Refill Social History Tobacco Use Types Packs/Day Years Used Date Smoking Tobacco: Never Smokeless Tobacco: Never Alcohol Use Standard Drinks/Week Comments Not Currently 0 (1 standard drink = 0.6 oz pur e alcohol) wine occasionally PHQ-2 Answer Date Recorded PHQ-2 Score 3 12/23/2020 [place] Depression Scale Answer Date Recorded [place] Depression Score 16 12/04/2020 Last EPDS Self Harm Result Not on file 12/04 Comments No Sex and Gender Information Value Date Recorded Sex Assigned at Female 04/07/2021 2:32 PM CDT Legal Sex Female 10:33 AM MEDICAL GENETICIST Gender Identity Female 04/07/2021 2:32 PM CDT Sexual Orientation Straight 04/07/2021 2: 32 PM CDT documented as of this encounter Miscellaneous Notes * Telephone Encounter - Marcela Benedict RN - 02/04/2021 2:19 PM CDT Routing refill request to provider for review/approval because: Elevated PHQ-9 Marcela Benedict RN [facility] -- Triage Nurse documented in this encounter Plan of Treatment Not on file documented as of this encounter Visit Diagnoses Diagnosis Moderate major depression (H) Major depressive disorder, single episode, moderate documented in this encounter Additional Health Concerns Assessment Noted Time PHQ-9 Depression Total Score: 17 021 1:27 PM CDT documented as of this encounter Care Teams Active Directory Specialist Relationship Specialty Start Date End Date Mariel Galindo APRN CORPORATE REPRESENTATIVE PCP - General Nurse Practitioner 08/13/14 06/08/22 No Ref-Primary, Physician PCP - General 06/09/22 06/02/23 Mariel Galindo APRN CORPORATE REPRESENTATIVE Assigned PCP 10/21/14 04/10/22 Samia Silverman MD [address] [address] Assigned OBGYN Provider 08/04/20 Mariel Galindo APRN CNP Assigned PCP 06/27/22 01/08/23 Nadege Jones APRN CORPORATE REPRESENTATIVE [address] [place], [place] [phone] Assigned PCP 01/09/23 01/15/23 Mateo, Mariel Stout APRN CORPORATE REPRESENTATIVE Assigned PCP 01/16/23 04/23/23 Nadege Jones APRN CORPORATE REPRESENTATIVE [address] [place], [place] [phone] Assigned PCP 04/24/23 10/06/23 Mateo, Mariel Stout APRN CORPORATE REPRESENTATIVE Assigned PCP 10/07/23 11/04/23 Mateo, Mariel Stout APRN CORPORATE REPRESENTATIVE Assigned PCP 11/05/23 12/03/23 Mateo, Mariel Stout APRN CORPORATE REPRESENTATIVE Assigned PCP 12/04/23 01/03/24 Deja Mendez PA-C [address] [place] [address] Assigned PCP 01/04/24 documented as of this encounter
--- OUTSIDE RECORDS SUMMARY | 2024-07-05 13:34 | XMS_ITS | Encounter Summary ---
Author Organization [facility] Address [address] [place] [address] Care Team Providers Care Mainspring Former Brace End Name Role Phone Mateo, Mariel Stout APRN, CNP Primary Care Provi adam Unavailable Mateo, Mariel Stout APRN BANDER AND CELLOPHANER MACHINE HELPER Unavailable Un available Samia Silverman MD Unavailable [phone] No Ref-Primary, Physician Primary Care Provider Mateo, Mariel Stout APRN BANDER AND CELLOPHANER MACHINE HELPER Unavailable Un available Nadege Jones APRN BANDER AND CELLOPHANER MACHINE HELPER Unavailable Mateo, Mariel Stout APRN BANDER AND CELLOPHANER MACHINE HELPER Unavailable Un available Nadege Jones APRN BANDER AND CELLOPHANER MACHINE HELPER Unavailable Mateo, Mariel Stout APRN BANDER AND CELLOPHANER MACHINE HELPER Unavailable Un available Mateo, Mariel Stout APRN BANDER AND CELLOPHANER MACHINE HELPER Unavailable Un available MateoMariel meng APRN BANDER AND CELLOPHANER MACHINE HELPER Unavailable Un available Deja Mendez PA-C Unavailable [phone] Reason for Visit * Reason Onset Date Comments Refill Request 09/14/2019 Encounter Details Date Type Department Care Team (Late st Contact Info) Description 09/14/2019 [facility] [address] [address] Mariel Galindo APRN CNP Refill [...] PM CDT Legal Sex Female 10:33 AM INFANTRY 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 Gender Identity Female 04/07/2021 2:32 PM CDT [...] Total Score: 9 07/28/20 19 8:28 AM INFANTRY ASSAULTMAN documented as of this encounter Care Teams Mainspring Former Brace End Relationship Specialty Start Date End Date Mariel Galindo APRN CNP PCP - General Nurse Practitioner 08/13/14 06/08/22 No Ref-Primary, Physician PCP - General 06/09/22 06/02/23 Mariel Galindo APRN CNP Assigned PCP 10/21/14 04/10/22 Samia Silverman MD [address] [place] [address] Assigned OBGYN Provider 08/04/20 Mariel Galindo APRN BANDER AND CELLOPHANER MACHINE HELPER Assigned PCP 06/27/22 01/08/23 Nadege Jones APRN BANDER AND CELLOPHANER MACHINE HELPER [address] [facility] [address] Assigned PCP 01/09/23 01/15/23 Mariel Galindo APRN BANDER AND CELLOPHANER MACHINE HELPER Assigned PCP 01/16/23 04/23/23 Nadege Jones APRN BANDER AND CELLOPHANER MACHINE HELPER [address] [place] [phone] Assigned PCP 04/24/23 10/06/23 MateoMariel meng APRN BANDER AND CELLOPHANER MACHINE HELPER Assigned PCP 10/07/23 11/04/23 Mateo, Mariel Stout APRN BANDER AND CELLOPHANER MACHINE HELPER Assigned PCP 11/05/23 12/03/23 Mateo, Mariel Stout APRN BANDER AND CELLOPHANER MACHINE HELPER Assigned PCP 12/04/23 01/03/24 Deja Mendez PA-C [address] [place] [address] Assigned PCP 01/04/24 documented as of this encounter
--- OUTSIDE RECORDS SUMMARY | 2024-07-05 13:34 | XMS_ITS | Encounter Summary ---
Author Organization [facility] Address [address] [place] [address] Care Team Providers Care Enamel Finisher Name Role Phone Mateo, Mariel Stout APRN, CNP Primary Care Provi adam Unavailable Mateo, Mariel Stout APRN FARE REGISTER REPAIRER Unavailable Un available Mateo, Mariel Stout APRN FARE REGISTER REPAIRER Unavailable Un available Samia Silverman MD Unavailable No Ref-Primary, Physician Primary Care Provider Mateo, Mariel Stout APRN FARE REGISTER REPAIRER Unavailable Un available Nadege Jones APRN FARE REGISTER REPAIRER Unavailable Mateo, Mariel Stout APRN FARE REGISTER REPAIRER Unavailable Un available Nadege Jones APRN FARE REGISTER REPAIRER Unavailable [phone] Mateo, Mariel Stout APRN FARE REGISTER REPAIRER Unavailable Un available Mateo, Mariel Stout APRN FARE REGISTER REPAIRER Unavailable Un available Mateo, Mariel Stout APRN FARE REGISTER REPAIRER Unavailable Un available Deja Mendez PA-C Unavailable [phone] Reason for Visit * Reason Comments Medication Refill FLUoxetine (PROZAC) 20 MG capsule Encounter Details Date Type Department Care Team (Late st Contact Info) Description 03/25/[address] [address] Mariel Galindo APRN CNP Medication Refill (FLUoxetine (PROZAC) 20 MG capsule) Social History Tobacco Use Types Packs/Day Years Used Date Smoking Tobacco: Never Alcohol Use Standard Drinks/Week Comments No 0 (1 standard drink = 0.6 oz pur e alcohol) not during Comments No Sex and Gender Information Value Date Recorded Sex Assigned at Female 04/07/2021 2:32 PM CDT Legal Sex Female 10:33 AM PAPERHANGER PIPE Gender Identity Female 04/07/2021 2:32 PM CDT [...] # refills: 1 Last Office Visit with [facility] primary care provider: 10/23/2016, Mateo Last PHQ-9 score on record= PHQ-9 SCORE [...] documented as of this encounter Care Teams Enamel Finisher Relationship Specialty Start Date End Date Mariel Galindo APRN CNP PCP - General Nurse Practitioner 08/13/14 06/08/22 Mariel Galindo APRN FARE REGISTER REPAIRER PCP - Assigned PCP 10/21/14 11/15/18 No Ref-Primary, Physician PCP - General 06/09/22 06/02/23 Mariel Galindo APRN CNP Assigned PCP 10/21/14 04/10/22 Samia Silverman MD [address] [place] [id number] Assigned OBGYN Provider 08/04/20 Mariel Galindo APRN FARE REGISTER REPAIRER Assigned PCP 06/27/22 01/08/23 Nadege Jones APRN CNP [address] [facility] [place] [address] Assigned PCP 01/09/23 01/15/23 Mariel Galindo APRN FARE REGISTER REPAIRER Assigned PCP 01/16/23 04/23/23 Nadege Jones APRN FARE REGISTER REPAIRER [address] [place] [address] Assigned PCP 04/24/23 10/06/23 Mariel Galindo APRN CNP Assigned PCP 10/07/23 11/04/23 Mariel Galindo APRN FARE REGISTER REPAIRER Assigned PCP 11/05/23 12/03/23 Mariel Galindo, [place] FARE REGISTER REPAIRER Assigned PCP 12/04/23 01/03/24 Deja Mendez PA-C [address] [place] [address] Assigned PCP 01/04/24 documented as of this encounter
--- OUTSIDE RECORDS SUMMARY | 2024-07-05 13:34 | XMS_ITS | Encounter Summary ---
Author Organization [facility] Address [address] [place] [address] Care Team Providers Care Mailroom Manager Name Role Phone MateoMariel meng APRN ACCOUNT DEVELOPMENT MANAGER Primary Care Provi adam Unavailable Mateo, Mariel Stout APRN ACCOUNT DEVELOPMENT MANAGER Unavailable Un available Mateo, Mariel Stout APRN ACCOUNT DEVELOPMENT MANAGER Unavailable Un available Samia Silverman MD Unavailable [phone] No Ref-Primary, Physician Primary Care Provider Mateo, Mariel Stout APRN ACCOUNT DEVELOPMENT MANAGER Unavailable Un available Nadege Jones APRN ACCOUNT DEVELOPMENT MANAGER Unavailable Mateo, Mariel Stout APRN ACCOUNT DEVELOPMENT MANAGER Unavailable Un available Nadege Jones APRN ACCOUNT DEVELOPMENT MANAGER Unavailable Mateo, Mariel Stout APRN ACCOUNT DEVELOPMENT MANAGER Unavailable Un available Mateo, Mariel Stout APRN ACCOUNT DEVELOPMENT MANAGER Unavailable Un available Mateo, Mariel Stout APRN ACCOUNT DEVELOPMENT MANAGER Unavailable Un available Deja Mendez PA-C Unavailable [phone] Encounter Details Date Type Department Care [...] PM CDT Legal Sex Female 10:33 AM HEAD GROWER Gender Identity Female 04/07/2021 2:32 PM CDT Sexual Orientation Straight 04/07/2021 2: 32 PM CDT documented as of this encounter Plan of Treatment Not on file documented as of this encounter Visit Diagnoses Not on filedocumented in this encounter Additional Health Concerns Assessment Noted Time PHQ-9 Depression Total Score: 12 017 7:21 AM HEAD GROWER documented as of this encounter Care Teams Mailroom Manager Relationship Specialty Start Date End Date Mariel Galindo APRN CNP PCP - General Nurse Practitioner 08/13/14 06/08/22 Mariel Galindo APRN CNP PCP - Assigned PCP 10/21/14 11/15/18 No Ref-Primary, Physician PCP - General 06/09/22 06/02/23 Mariel Galindo APRN CNP Assigned PCP 10/21/14 04/10/22 Samia Silverman MD [address] [address] Assigned OBGYN Provider 08/04/20 Mariel Galindo APRN CNP Assigned PCP 06/27/22 01/08/23 Nadege Jones APRN ACCOUNT DEVELOPMENT MANAGER [address] [place] [phone] Assigned PCP 01/09/23 01/15/23 Mariel Galindo APRN ACCOUNT DEVELOPMENT MANAGER Assigned PCP 01/16/23 04/23/23 Nadege Jones APRN CNP [address] [place] [phone] Assigned PCP 04/24/23 10/06/23 MateoMariel meng APRN ACCOUNT DEVELOPMENT MANAGER Assigned PCP 10/07/23 11/04/23 MateoMariel meng APRN ACCOUNT DEVELOPMENT MANAGER Assigned PCP 11/05/23 12/03/23 Mariel Galindo APRN ACCOUNT DEVELOPMENT MANAGER Assigned PCP 12/04/23 01/03/24 Deja Mendez PA-C [address] [place] [address] Assigned PCP 01/04/24 documented as of this encounter
--- OUTSIDE RECORDS SUMMARY | 2024-07-05 13:34 | XMS_ITS | Encounter Summary ---
Author Organization [facility] Address [address] [place] [address] Care Team Providers Care Banking Paralegal Name Role Phone Mateo, Mariel Stout APRN ADVERTISING MANAGER Primary Care Provi adam Unavailable Mateo, Mariel Stout APRN ADVERTISING MANAGER Unavailable Un available Samia Silverman MD Unavailable [phone] No Ref-Primary, Physician Primary Care Provider Mateo, Mariel Stout APRN ADVERTISING MANAGER Unavailable Un available Nadege Jones APRN ADVERTISING MANAGER Unavailable [phone] Mateo, Mariel Stout APRN ADVERTISING MANAGER Unavailable Un available Nadege Jones APRN ADVERTISING MANAGER Unavailable Mateo, Mariel Stout APRN ADVERTISING MANAGER Unavailable Un available Mateo, Mariel Stout APRN ADVERTISING MANAGER Unavailable Un available Mateo, Mariel Stout APRN ADVERTISING MANAGER Unavailable Un available Deja Mendez PA-C Unavailable [phone] Reason for Visit * Reason Onset Date Comments Refill Request 06/20/2019 [place] Encounter Details Date Type Department Care Team (Late st Contact Info) Description 06/20/2019 [facility] [address] [address] Mariel Galindo APRN CNP Refill Request (Earnest) Social History Tobacco Use Types Packs/Day Years Used Date Smoking Tobacco: Never Smokeless Tobacco: Never Alcohol Use Standard Drinks/Week Comments No 0 (1 standard drink = 0.6 oz pur e alcohol) not during PHQ-2 Answer Date Recorded PHQ-2 Score 1 10/24/2018 Comments No Sex and Gender Information Value Date Recorded Sex Assigned at Female 04/07/2021 2:32 PM CDT Legal Sex Female 10:33 AM SUPERVISOR CEMETERY WORKERS Gender Identity Female 04/07/2021 2:32 PM CDT Sexual Orientation Straight 04/07/2021 2: 32 PM CDT documented as of this encounter Miscellaneous Notes * Telephone Encounter - Mariel Galindo APRN CNP - 06/21/2019 9:13 PM CDT Will refill at appointment on 06/26. Mairel Galindo CNP * Telephone Encounter - Joyce [...] for review/approval because: Drug not on the [facility] refill protocol SUPERVISOR PRINT LINE: .31. Annual Controlled substance agreement: 416 Annual drug screenin07.11.19 Michelle Whitley RN * [...] SHOULD BE DELETED.) Last Office Visit with [facility] primary care provider: 10/24/2018-Mariel Galindo Future Office [...] consultation, please call . Analysis performed by [facility], [facility] [place] [address] , No results found for: COMDAT, No results found for: THC13, PCP13, COC13, MAMP13, OPI13, AMP13, BZO13, TCA13, MTD13, BAR13, OXY13, PPX13, BUP13 Processing: Send Electronically to pharmacy [email or web address] PRINT LINE checked in past 3 months? No, route to RN documented in this encounter Plan of Treatment Not on file documented as of this encounter Visit Diagnoses Diagnosis ADHD (attention deficit hyperactivity disorder), combined type Attention deficit disorder with hyperactivity documented in this encounter Additional Health Concerns Assessment Noted Time PHQ-9 Depression Total Score: 13 019 7:06 AM SUPERVISOR CEMETERY WORKERS documented as of this encounter Care Teams Banking Paralegal Relationship Specialty Start Date End Date Mariel Galindo APRN ADVERTISING MANAGER PCP - General Nurse Practitioner 08/13/14 06/08/22 No Ref-Primary, Physician PCP - General 06/09/22 06/02/23 Mariel Galindo APRN ADVERTISING MANAGER Assigned PCP 10/21/14 04/10/22 Samia Silverman MD [address] [place] [address] Assigned OBGYN Provider 08/04/20 Mateo, Mariel Stout APRN ADVERTISING MANAGER Assigned PCP 06/27/22 01/08/23 Nadege Jones APRN ADVERTISING MANAGER [address] [place] [phone] Assigned PCP 01/09/23 01/15/23 Mateo, Mariel Stout APRN ADVERTISING MANAGER Assigned PCP 01/16/23 04/23/23 Nadege Jones APRN ADVERTISING MANAGER [address] [place] [phone] Assigned PCP 04/24/23 10/06/23 Mateo, Mariel Stout APRN ADVERTISING MANAGER Assigned PCP 10/07/23 11/04/23 Mateo, Mariel Stout APRN ADVERTISING MANAGER Assigned PCP 11/05/23 12/03/23 Mateo, Mariel Stout APRN ADVERTISING MANAGER Assigned PCP 12/04/23 01/03/24 Deja Mendez PA-C [address] [place] [address] Assigned PCP 01/04/24 documented as of this encounter
== END 2024-07-05 13:31 | disposition home or self-care (01) ==
LOC: US 13:31
PROVIDERS: Visit Provider Midwife
DX: O09.522 Supervision of elderly multigravida, second trimester (principal); O36.5990 Maternal care for other known or suspected poor fetal growth, unspecified trimester, not applicable or unspecified; Z3A.23 23 weeks gestation of pregnancy
CPT/HCPCS: 76816

== ENCOUNTER 2024-07-14 10:18 | Outpatient (CLI) | payer OTHER, SELFPAY ==
--- OUTSIDE RECORDS SUMMARY | 2024-07-14 10:30 | XMS_ITS | Referral Summary ---
Author Organization [facility] Address [address] [place] [address] Care Team Providers Care Armature Repairer Name Role Phone Deja Mendez PA-C Unavailable [phone] Allergies No known active allergies Medications [...] 07/28/19 NIL, +HR HPV, not 16/18. Plan [place] 06/11/20 Patient is lost to pap tracking [...] Neuropsych evaluation for ADD completed: UNKNOWN Last [facility] website verification: 06/28/19 [email or web address] Assessment & Plan (05/10/2017 6:36 PM CDT): [...] Neuropsych evaluation for ADD completed: No Last [facility] website verification: done on 05.10.17 [email or web address] CARDIOVASCULAR SCREENING; LDL GOAL LESS THAN 160 [...] declined 04/20/2023 How often do you attend scientologist or restorationist serv ices? Never 04/20/2023 Do you belong to any clubs o r organizations such as scientologist groups, unions, fraternal or athletic groups, or [...] Answer Date Recorded PHQ-2 Score 3 12/14/2023 [facility] [place] of Occupat ional Health - Occupational Stress [...] place to sleep or slept in a fdc (including now)? No 04/20/2023 [place] Depression Scale Answer Date Recorded [place] Depression Score 16 12/04/2020 Last EPDS Self Harm Result Not on file 12/04 Adolescent Education Answer Date Record ed Getting School Help Needed Not on file 06/04 Comments No Sex and Gender Information Value Date Recorded Sex Assigned at Female 04/07/2021 2:32 PM CDT Legal Sex Female 10:33 AM DIRECTIONAL BORE OPERATOR Gender Identity Female 04/07/2021 2:32 PM [...] TYPES DNA CERVICAL Routine 11/21/2021 8:09 AM DIRECTIONAL BORE OPERATOR Cervical cancer screening GYNECOLOGIC CYTOLOGY Routine 11/21/2021 8:09 AM DIRECTIONAL BORE OPERATOR Cervical cancer screening HIV ANTIGEN ANTIBODY COMBO [...] newborns, infants, and children. Nadege Jones APRN CUT OFF SAW OPERATOR PIPE BLANKS LAB - BLOOD ORDERABLES F inal Result UM SPECIALTY CORE/PROT/ENDO UM Specialty Core/Prot/Endo [address] [facility] [address] [facility], [address] [place], [place] [address] [phone] * Basic metabolic panel (Ca, Cl, CO2, Creat, Gluc, K, Na, BUN) (04/20/2023 3:45 PM CDT) [facility] Sodium 137 136 - 145 mmol/L 04/21/2023 [...] 3:45 PM CDT us Nadege Jones APRN CUT OFF SAW OPERATOR PIPE BLANKS LAB - BLOOD ORDERABLES F inal Result [facility] [place] Core Lab 500 [facility] [address] [facility], [address] [address], [facility] [phone] * TSH WITH FREE T4 REFLEX (11/24/2022 11:06 AM CDT) TSH 1.31 0.30 - 4.20 uIU/mL 11/24/2022 5:51 PM CDT [facility] LAB[facility]ATORY Blood BLOOD SPECIMEN / Unknown Venipuncture / Unknown 11/24/2022 11:06 AM CDT 11/24/2022 11:10 AM CDT us Nadege Jones APRN CUT OFF SAW OPERATOR PIPE BLANKS LAB - BLOOD ORDERABLES F inal Result [facility] [place] [facility] 500 [facility], [address] [place] [address], [facility] [phone] * Pap Screen with HPV - recommended age 30 - 65 years (11/21/2021 8:09 AM DIRECTIONAL BORE OPERATOR) Interpretation Negative for Intraepithelial Lesion or Malignancy [...] component of this testing was completed at [facility] 11/25/2021 9:24 AM CDT SPECIALTY LABS Brushing CERVIX UTERI STRUCTURE / Unknown 11/21/2021 8:09 AM DIRECTIONAL BORE OPERATOR 11/21/2021 8:24 AM DIRECTIONAL BORE OPERATOR Yazmin Galindo APRN CUT OFF SAW OPERATOR PIPE BLANKS YAYA - CHRISTIAN Al al Result SPECIALTY LABS Specialty Lab 500 [facility] [address] [facility], [address] [address], [facility] [phone] * HPV High Risk Types DNA Cervical (11/21/2021 8:09 AM DIRECTIONAL BORE OPERATOR) Other HR HPV Negative Negative 11/26/2021 2:10 PM CDT [facility]ST[facility] HPV16 DNA Negative Negative 11/26/2021 2:10 PM CDT [facility] HPV18 DNA Negative Negative 11/26/2021 2:10 PM CDT [facility] FINAL DIAGNOSIS This patient's sample is negative for HPV DNA. This test was developed and its performance characteristics determined by the [facility], Molecular Diagnostics Laboratory. It has not [...] Non-blood Collection / Unknown 11/21/2021 8:09 AM DIRECTIONAL BORE OPERATOR 11/25/2021 3:59 PM CDT Yazmin Galindo APRN, CNP LAB - BLOOD ORDERAB LES Final Result [facility] Molecular Diagnostics [address], [address] [place] [address], [facility] [phone] * HIV Antigen Antibody Combo (05/20/2016) HIV Antigen Antibody Combo Negative Blood specimen (specimen) us Patient Reported LAB - BLOOD ORDERABLES Final Re sult from Last 3 Months or Most Recently Relevant to Health Maintenance Care Teams Armature Repairer Relationship Specialty Start Date End Date Deja Mendez PA-C [address] [place] [phone] Assigned PCP 01/04/24
--- OUTSIDE RECORDS SUMMARY | 2024-07-14 10:30 | XMS_ITS | Encounter Summary ---
Author Organization [place] Address [address] [place] [address] Care Team Providers Care Human Resources Advisor Name Role Phone No Ref-Primary, Physician Primary Care Provider MateoMariel SECURITY SYSTEM ANALYST BLOCKMAN Unavailable Un available Nadege Jones APRN BLOCKMAN Unavailable [phone] MateoMariel SECURITY SYSTEM ANALYST BLOCKMAN Unavailable Un available MateoMariel APRN BLOCKMAN Unavailable Un available MateoMariel APRN BLOCKMAN Unavailable Un available Deja Mendez PA-C Unavailable Encounter Details Date Type Department Care Team (Late st Contact Info) Description 04/16/2023 MyC Medical Advice [facility] [id number] [place] [address] Kimberly Montanez, [facility] Social History Tobacco Use Types Packs/Day [...] declined 04/20/2023 How often do you attend christian or holiness serv ices? Never 04/20/2023 Do you belong to any clubs o r organizations such as christian groups, unions, fraternal or athletic groups, or [...] Answer Date Recorded PHQ-2 Score 4 04/20/2023 [facility] of Occupat ional Health - Occupational [...] in a penitentiary (including now)? No 04/20/2023 [place] Depression Scale Answer Date Recorded [place] Depression Score 16 12/04/2020 Last EPDS Self Harm Result Not on file 12/04 Comments No Sex and Gender Information Value Date Recorded Sex Assigned at Female 04/07/2021 2:32 PM CDT Legal Sex Female 10:33 AM RECORDING STUDIO SETUP WORKER Gender Identity Female 04/07/2021 2:32 PM CDT Sexual Orientation Straight 04/07/2021 2: 32 PM CDT documented as of this encounter Plan of Treatment Not on file documented as of this encounter Visit Diagnoses Not on filedocumented in this encounter Additional Health Concerns Assessment Noted Time PHQ-9 Depression Total Score: 12 023 3:55 PM CDT documented as of this encounter Care Teams Human Resources Advisor Relationship Specialty Start Date End Date No Ref-Primary, Physician PCP - General 06/09/22 06/02/23 Mariel Galindo APRN BLOCKMAN Assigned PCP 01/16/23 04/23/23 Nadege Jones APRN BLOCKMAN [address] [place] [address] Assigned PCP 04/24/23 10/06/23 Mariel Galindo APRN BLOCKMAN Assigned PCP 10/07/23 11/04/23 Mariel Galindo APRN BLOCKMAN Assigned PCP 11/05/23 12/03/23 Mariel Galindo APRN BLOCKMAN Assigned PCP 12/04/23 01/03/24 Deja Mendez PA-C [address] [place] [phone] Assigned PCP 01/04/24 documented as of this encounter
--- OUTSIDE RECORDS SUMMARY | 2024-07-14 10:30 | XMS_ITS | Clinical Summary ---
Author Organization [place] Address [address] [place] [address] Care Team Providers Care Contract Administrator Name Role Phone Deja Mendez PA-C Unavailable [phone] Allergies No known active allergies Medications [...] 07/28/19 NIL, +HR HPV, not 16/18. Plan [place] 06/11/20 Patient is lost to pap tracking [...] Neuropsych evaluation for ADD completed: UNKNOWN Last [facility] website verification: 06/28/19 [email or web address] Assessment & Plan (05/10/2017 6:36 PM CDT): [...] Neuropsych evaluation for ADD completed: No Last [facility] website verification: done on 05.10.17 [email or web address] CARDIOVASCULAR SCREENING; LDL GOAL LESS THAN 160 [...] How often do you attend anabaptist or bahai serv ices? Never 04/20/2023 Do you belong [...] Date Recorded PHQ-2 Score 3 12/14/2023 [facility] of Occupat ional Health [...] in a half-way (including now)? No 04/20/2023 [place] Depression Scale Answer Date Recorded [place] Depression Score 16 12/04/2020 Last EPDS Self Harm Result Not on file 12/04 Adolescent Education Answer Date Record ed Getting School Help Needed Not on file 06/04 Comments No Sex and Gender Information Value Date Recorded Sex Assigned at Female 04/07/2021 2:32 PM CDT Legal Sex Female 10:33 AM AUTO SERVICER Gender Identity Female 04/07/2021 2:32 PM CDT [...] TYPES DNA CERVICAL Routine 11/21/2021 8:09 AM AUTO SERVICER Cervical cancer screening GYNECOLOGIC CYTOLOGY Routine 11/21/2021 8:09 AM AUTO SERVICER Cervical cancer screening HIV ANTIGEN ANTIBODY COMBO [...] newborns, infants, and children. Nadege Jones APRN LIQUEFACTION SUPERVISOR LAB - BLOOD ORDERABLES F inal Result SPECIALTY CORE/PROT/ENDO Specialty Core/Prot/Endo 500 [facility] [address] [facility], [address] [address], [facility] [phone] * Basic metabolic panel (Ca, Cl, CO2, Creat, Gluc, K, Na, BUN) (04/20/2023 3:45 PM CDT) Pathologist [facility] Sodium 137 136 - 145 mmol/L 04/21/2023 [...] ORDERABLES F inal Result Performing Organization Address City/[facility]/ZIP Co de Phone Number LABORATORY [facility] [place] Core Lab 500 [facility], [address] [address], [facility] [phone] * TSH WITH FREE T4 REFLEX (11/24/2022 11:06 AM CDT) TSH 1.31 0.30 - 4.20 uIU/mL 11/24/2022 5:51 PM CDT [facility] LABORATORY Blood BLOOD SPECIMEN / Unknown Venipuncture / Unknown 11/24/2022 11:06 AM CDT 11/24/2022 11:10 AM CDT Nadege Jones APRN, CNP LAB - BLOOD ORDERABLES F inal Result Performing Organization Address City/[facility] Co de Phone Number LABORATORY [facility] Core Lab [address] [facility], [address] [address], [facility] [phone] * Pap Screen with HPV - recommended age 30 - 65 years (11/21/2021 8:09 AM AUTO SERVICER) Interpretation Negative for Intraepithelial Lesion or Malignancy [...] UTERI STRUCTURE / Unknown 11/21/2021 8:09 AM AUTO SERVICER 11/21/2021 8:24 AM AUTO SERVICER Yazmin Galindo APRN [facility] Al al Result SPECIALTY LABS Specialty Lab 500 [facility], [address] [place] [address], [facility] [phone] * HPV High Risk Types DNA Cervical (11/21/2021 8:09 AM AUTO SERVICER) Other HR HPV Negative Negative 11/26/2021 2:10 PM CDT MO[facility] DIAGNOSTICS HPV16 DNA Negative Negative 11/26/2021 2:10 PM CDT MO[facility] DIAGNOSTICS HPV18 DNA Negative Negative 11/26/2021 2:10 PM CDT [facility] DI[facility]ST[facility] FINAL DIAGNOSIS This patient's sample is negative for HPV DNA. This test was developed and its performance characteristics determined by the [facility], Molecular Diagnostics Laboratory. It has not been [...] Non-blood Collection / Unknown 11/21/2021 8:09 AM AUTO SERVICER 11/25/2021 3:59 PM CDT us aYzmin Galindo ELDER ASSISTANT LIQUEFACTION SUPERVISOR LAB - BLOOD ORDERAB LES Final Result [facility]ST[facility] Molecular Diagnostics [address] [facility], [address] [address], [facility] [phone] * HIV Antigen Antibody Combo (05/20/2016) HIV Antigen Antibody Combo Negative Blood specimen (specimen) us Patient Reported LAB - BLOOD ORDERABLES Final Re sult from Last 3 Months or Most Recently Relevant to Health Maintenance Care Teams Contract Administrator Relationship Specialty Start Date End Date Deja Mendez PA-C [address] [place] [phone] Assigned PCP 01/04/24
--- OUTSIDE RECORDS SUMMARY | 2024-07-14 10:30 | XMS_ITS | Encounter Summary ---
Author Organization [facility] Address [address] [place] [address] Care Team Providers Care Camp Head Counselor Name Role Phone No Ref-Primary, Physician Primary Care Provider MateoMariel STRIP DEBURRER BEADING INSTALLER Unavailable Un available Nadege Jones APRN BEADING INSTALLER Unavailable [phone] MateoMariel STRIP DEBURRER BEADING INSTALLER Unavailable Un available MateoMariel APRN BEADING INSTALLER Unavailable Un available MateoMariel APRN BEADING INSTALLER Unavailable Un available Deja Mendez PA-C Unavailable [phone] Encounter Details Date Type Department Care Team (Late st Contact Info) Description 01/25/[address] [facility] [id number] [place] [phone] Kimberly Montanez, [facility] Social History Tobacco Use Types Packs/Day Years Used Date Smoking Tobacco: Never Smokeless Tobacco: Never Alcohol Use Standard Drinks/Week Comments Yes 0 (1 standard drink = 0.6 oz pur e alcohol) wine occasionally PHQ-2 Answer Date Recorded PHQ-2 Total Score (Adult) - Positive if 3 or more points; Administer PHQ-9 if positive 2 11/24/2022 [place] Depression Scale Answer Date Recorded [place] Depression Score 16 12/04/2020 Last EPDS Self Harm Result Not on file 12/04 Comments No Sex and Gender Information Value Date Recorded Sex Assigned at Female 04/07/2021 2:32 PM CDT Legal Sex Female 10:33 AM MEDICAL INSURANCE BILLER Gender Identity Female 04/07/2021 2:32 PM CDT Sexual Orientation Straight 04/07/2021 2: 32 PM CDT documented as of this encounter Plan of Treatment Not on file documented as of this encounter Visit Diagnoses Not on filedocumented in this encounter Additional Health Concerns Assessment Noted Time PHQ-9 Depression Total Score: 12 023 3:55 PM CDT documented as of this encounter Care Teams Camp Head Counselor Relationship Specialty Start Date End Date No Ref-Primary, Physician PCP - General 06/09/22 06/02/23 Mariel Galindo APRN BEADING INSTALLER Assigned PCP 01/16/23 04/23/23 Nadege Jones APRN BEADING INSTALLER [address] [facility] [place] [phone] Assigned PCP 04/24/23 10/06/23 Mariel Galindo APRN BEADING INSTALLER Assigned PCP 10/07/23 11/04/23 Mariel Galindo APRN BEADING INSTALLER Assigned PCP 11/05/23 12/03/23 Mariel Galindo APRN BEADING INSTALLER Assigned PCP 12/04/23 01/03/24 Deja Mendez PA-C [address] [place] [phone] Assigned PCP 01/04/24 documented as of this encounter
--- OUTSIDE RECORDS SUMMARY | 2024-07-14 10:30 | XMS_ITS | Encounter Summary ---
Author Organization [facility] Address [address] [place] [address]. [place] [address] Care Team Providers Care Money Examiner Name Role Phone No Ref-Primary, Physician Primary Care Provider Mateo, Mariel Stout APRN SUPERINTENDENT OIL WELL SERVICES Unavailable Un available Nadege Jones APRN SUPERINTENDENT OIL WELL SERVICES Unavailable Mateo, Mariel Stout APRN SUPERINTENDENT OIL WELL SERVICES Unavailable Un available Mateo, Mariel Stout APRN SUPERINTENDENT OIL WELL SERVICES Unavailable Un available Mateo, Mariel Stout APRN SUPERINTENDENT OIL WELL SERVICES Unavailable Un available Deja Mendez PA-C Unavailable [phone] Reason for Visit * Reason Onset Date Comments Refill Request 02/18/2023 Encounter Details Date Type Department Care Team (Late st Contact Info) Description 02/18/2023 MyC Refill M [facility] [address] [place] [phone] Amanda Tolbert PA-C [address] [place] [address] Refill Request Social History Tobacco Use Types Packs/Day Years Used Date Smoking Tobacco: Never Smokeless Tobacco: Never Alcohol Use Standard Drinks/Week Comments Yes 0 (1 standard drink = 0.6 oz pur e alcohol) wine occasionally PHQ-2 Answer Date Recorded PHQ-2 Total Score (Adult) - Positive if 3 or more points; Administer PHQ-9 if positive 2 02/18/2023 [place] Depression Scale Answer Date Recorded [place] Depression Score 16 12/04/2020 Last EPDS Self Harm Result Not on file 12/04 Comments No Sex and Gender Information Value Date Recorded Sex Assigned at Female 04/07/2021 2:32 PM CDT Legal Sex Female 10:33 AM MANAGER HOME IMPROVEMENT Gender Identity Female 04/07/2021 2:32 PM CDT [...] documented as of this encounter Care Teams Money Examiner Relationship Specialty Start Date End Date No Ref-Primary, Physician PCP - General 06/09/22 06/02/23 Mariel Galindo APRN SUPERINTENDENT OIL WELL SERVICES Assigned PCP 01/16/23 04/23/23 Nadege Jones APRN SUPERINTENDENT OIL WELL SERVICES [address] [place] [phone] Assigned PCP 04/24/23 10/06/23 Mariel Galindo APRN SUPERINTENDENT OIL WELL SERVICES Assigned PCP 10/07/23 11/04/23 Mariel Galindo APRN SUPERINTENDENT OIL WELL SERVICES Assigned PCP 11/05/23 12/03/23 Mariel Galindo APRN SUPERINTENDENT OIL WELL SERVICES Assigned PCP 12/04/23 01/03/24 Deja Mendez PA-C [address] [place] [phone] Assigned PCP 01/04/24 documented as of this encounter
--- OUTSIDE RECORDS SUMMARY | 2024-07-14 10:30 | XMS_ITS | Encounter Summary ---
Author Organization [facility] Address [address] [place] [address] Care Team Providers Care Process Owner Name Role Phone No Ref-Primary, Physician Primary Care Provider Mateo, Mariel Stout APRN TILE FITTER Unavailable Un available Nadege Jones APRN TILE FITTER Unavailable Mateo, Mariel Stout APRN TILE FITTER Unavailable Un available Mateo, Mariel Stout APRN TILE FITTER Unavailable Un available Mateo, Mariel Stout APRN TILE FITTER Unavailable Un available Deja Mendez PA-C Unavailable [phone] Reason for Visit * Reason Onset Date Comments Refill Request 02/18/2023 Encounter Details Date Type Department Care Team (Late st Contact Info) Description 02/18/2023 MyC Refill M [facility] [address] [place] [address] Tamra Chavez PA-C [address] [place] [address] Refill Request Social History Tobacco Use Types Packs/Day Years Used Date Smoking Tobacco: Never Smokeless Tobacco: Never Alcohol Use Standard Drinks/Week Comments Yes 0 (1 standard drink = 0.6 oz pur e alcohol) wine occasionally PHQ-2 Answer Date Recorded PHQ-2 Total Score (Adult) - Positive if 3 or more points; Administer PHQ-9 if positive 2 02/18/2023 [place] Depression Scale Answer Date Recorded [place] Depression Score 16 12/04/2020 Last EPDS Self Harm Result Not on file 12/04 Comments No Sex and Gender Information Value Date Recorded Sex Assigned at Female 04/07/2021 2:32 PM CDT Legal Sex Female 10:33 AM FENCE POST DRIVER Gender Identity Female 04/07/2021 2:32 PM CDT [...] as of this encounter Care Teams Process Owner Relationship Specialty Start Date End Date No Ref-Primary, Physician PCP - General 06/09/22 06/02/23 Mariel Galindo APRN TILE FITTER Assigned PCP 01/16/23 04/23/23 Nadege Jones APRN TILE FITTER [address] [place] [phone] Assigned PCP 04/24/23 10/06/23 Mariel Galindo APRN TILE FITTER Assigned PCP 10/07/23 11/04/23 Mairel Galindo APRN TILE FITTER Assigned PCP 11/05/23 12/03/23 Mariel Galindo APRN TILE FITTER Assigned PCP 12/04/23 01/03/24 Deja Mendez PA-C [address] [place] [phone] Assigned PCP 01/04/24 documented as of this encounter
--- OUTSIDE RECORDS SUMMARY | 2024-07-14 10:31 | XMS_ITS | Encounter Summary ---
Author Organization [place] Address [address] [place] [address] Care Team Providers Care Home Economics Extension Worker Name Role Phone Mateo, Mariel Stout APRN, CNP Primary Care Provi adam Unavailable Mateo, Mariel Stout APRN THERAPEUTIC RECREATION ASSISTANT Unavailable Un available Samia Silverman MD Unavailable [phone] No Ref-Primary, Physician Primary Care Provider Mateo, Mariel Stout APRN THERAPEUTIC RECREATION ASSISTANT Unavailable Un available Nadege Jones APRN THERAPEUTIC RECREATION ASSISTANT Unavailable Mateo, Mariel Stout APRN THERAPEUTIC RECREATION ASSISTANT Unavailable Un available Nadege Jones APRN THERAPEUTIC RECREATION ASSISTANT Unavailable Mateo, Mariel Stout APRN THERAPEUTIC RECREATION ASSISTANT Unavailable Un available Mateo, Mariel Stout APRN THERAPEUTIC RECREATION ASSISTANT Unavailable Un available MateoMariel meng APRN THERAPEUTIC RECREATION ASSISTANT Unavailable Un available Deja Mendez PA-C Unavailable [phone] Reason for Visit * Reason Onset Date Comments Refill Request 09/14/2019 Encounter Details Date Type Department Care Team (Late st Contact Info) Description 09/14/2019 [facility] [address] [address] Mariel Galindo APRN CNP Refill [...] PM CDT Legal Sex Female 10:33 AM CONSTRUCTION ADMINISTRATOR Gender Identity Female 04/07/2021 2:32 PM CDT [...] Total Score: 9 07/28/20 19 8:28 AM CONSTRUCTION ADMINISTRATOR documented as of this encounter Care Teams Home Economics Extension Worker Relationship Specialty Start Date End Date Mariel Galindo APRN CNP PCP - General Nurse Practitioner 08/13/14 06/08/22 No Ref-Primary, Physician PCP - General 06/09/22 06/02/23 Mariel Galindo APRN CNP Assigned PCP 10/21/14 04/10/22 Samia Silverman MD [address] [place] [address] Assigned OBGYN Provider 08/04/20 Mariel Galindo APRN THERAPEUTIC RECREATION ASSISTANT Assigned PCP 06/27/22 01/08/23 Naedge Jones APRN THERAPEUTIC RECREATION ASSISTANT [address] [facility] [place] [address] Assigned PCP 01/09/23 01/15/23 Mariel Galindo APRN THERAPEUTIC RECREATION ASSISTANT Assigned PCP 01/16/23 04/23/23 Nadege Jones APRN THERAPEUTIC RECREATION ASSISTANT [address] [place] [phone] Assigned PCP 04/24/23 10/06/23 MateoMariel meng APRN THERAPEUTIC RECREATION ASSISTANT Assigned PCP 10/07/23 11/04/23 Mateo, Mariel Stout APRN THERAPEUTIC RECREATION ASSISTANT Assigned PCP 11/05/23 12/03/23 Mateo, Mariel Stout APRN THERAPEUTIC RECREATION ASSISTANT Assigned PCP 12/04/23 01/03/24 Deja Mendez PA-C [address] [facility] [place] [phone] Assigned PCP 01/04/24 documented as of this encounter
--- OUTSIDE RECORDS SUMMARY | 2024-07-14 10:31 | XMS_ITS | Encounter Summary ---
Author Organization [facility] Address [address] [place] [address]. [place] [address] Care Team Providers Care Ground Products Director Name Role Phone Mateo, Mariel Stout FIBER OPTIC TECHNICIAN ATTRACTIONS ASSOCIATE Primary Care Provi adam Unavailable Mateo, Mariel Stout FIBER OPTIC TECHNICIAN ATTRACTIONS ASSOCIATE Unavailable Un available Samia Silverman MD Unavailable [phone] No Ref-Primary, Physician Primary Care Provider Mateo, Mariel Stout FIBER OPTIC TECHNICIAN ATTRACTIONS ASSOCIATE Unavailable Un available Nadege Jones APRN ATTRACTIONS ASSOCIATE Unavailable [phone] Mateo, Mariel Argelia FIBER OPTIC TECHNICIAN ATTRACTIONS ASSOCIATE Unavailable Un available Nadege Jones APRN ATTRACTIONS ASSOCIATE Unavailable Mateo, Mariel Stout FIBER OPTIC TECHNICIAN ATTRACTIONS ASSOCIATE Unavailable Un available Mateo, Mariel Stout FIBER OPTIC TECHNICIAN ATTRACTIONS ASSOCIATE Unavailable Un available Mateo, Mariel Stout FIBER OPTIC TECHNICIAN ATTRACTIONS ASSOCIATE Unavailable Un available Deja Mendez PA-C Unavailable [phone] Encounter Details Date Type Department Care Team (Late st Contact Info) Description 03/03/2021 [facility] [place]ice [facility] [address] [place] [address] Sheyla Cespedes, POULTRY HATCHERY LABORER Social History Tobacco Use Types Packs/Day Years Used Date Smoking Tobacco: Never Smokeless Tobacco: Never Alcohol Use Standard Drinks/Week Comments Not Currently 0 (1 standard drink = 0.6 oz pur e alcohol) wine occasionally PHQ-2 Answer Date Recorded PHQ-2 Total Score (Adult) - Positive if 3 or more points; Administer PHQ-9 if positive 0 03/06/2021 [place] Depression Scale Answer Date Recorded [place] Depression Score 16 12/04/2020 Last EPDS Self Harm Result Not on file 12/04 Comments No Sex and Gender Information Value Date Recorded Sex Assigned at Female 04/07/2021 2:32 PM CDT Legal Sex Female 10:33 AM SAFETY RELIEF VALVE TECHNICIAN Gender Identity Female 04/07/2021 2:32 PM CDT Sexual Orientation Straight 04/07/2021 2: 32 PM CDT documented as of this encounter Plan of Treatment Not on file documented as of this encounter Visit Diagnoses Not on filedocumented in this encounter Additional Health Concerns Assessment Noted Time PHQ-9 Depression Total Score: 10 021 7:04 AM CDT documented as of this encounter Care Teams Ground Products Director Relationship Specialty Start Date End Date Mariel Galindo APRN CNP PCP - General Nurse Practitioner 08/13/14 06/08/22 No Ref-Primary, Physician PCP - General 06/09/22 06/02/23 Mariel Galindo APRN ATTRACTIONS ASSOCIATE Assigned PCP 10/21/14 04/10/22 Samia Silverman MD [address] [place] [address] Assigned OBGYN Provider 08/04/20 Mariel Galindo APRN ATTRACTIONS ASSOCIATE Assigned PCP 06/27/22 01/08/23 Nadege Jones APRN ATTRACTIONS ASSOCIATE [address] [place] [address] Assigned PCP 01/09/23 01/15/23 Mariel Galindo APRN ATTRACTIONS ASSOCIATE Assigned PCP 01/16/23 04/23/23 Nadege Jones APRN ATTRACTIONS ASSOCIATE [address] [place] [address] Assigned PCP 04/24/23 10/06/23 Mateo, Mariel Stout APRN ATTRACTIONS ASSOCIATE Assigned PCP 10/07/23 11/04/23 Mateo, Mariel Stout APRN ATTRACTIONS ASSOCIATE Assigned PCP 11/05/23 12/03/23 Mateo, Mariel Stout APRN ATTRACTIONS ASSOCIATE Assigned PCP 12/04/23 01/03/24 Deja Mendez PA-C [address] [place] [address] Assigned PCP 01/04/24 documented as of this encounter
--- OUTSIDE RECORDS SUMMARY | 2024-07-14 10:31 | XMS_ITS | Encounter Summary ---
Author Organization [facility] Address [address] [place] [address] Care Team Providers Care Batch Unloader Name Role Phone Mateo, Mariel Stout APRN, CNP Primary Care Provi adam Unavailable Mateo, Mariel Stout APRN LAND CONSERVATION SPECIALIST Unavailable Un available Mateo, Mariel Stout APRN LAND CONSERVATION SPECIALIST Unavailable Un available Samia Silverman MD Unavailable [phone] No Ref-Primary, Physician Primary Care Provider Mateo, Mariel Stout APRN LAND CONSERVATION SPECIALIST Unavailable Un available Nadege Jones APRN LAND CONSERVATION SPECIALIST Unavailable [phone] Mateo, Mariel Stout APRN LAND CONSERVATION SPECIALIST Unavailable Un available Nadege Jones APRN LAND CONSERVATION SPECIALIST Unavailable [phone] Mateo, Mariel Stout APRN LAND CONSERVATION SPECIALIST Unavailable Un available Mateo, Mariel Stout APRN LAND CONSERVATION SPECIALIST Unavailable Un available Mateo, Mariel Stout APRN LAND CONSERVATION SPECIALIST Unavailable Un available Deja Mendez PA-C Unavailable [phone] Reason for Visit * Reason Comments Medication Refill FLUoxetine (PROZAC) 20 MG capsule Encounter Details Date Type Department Care Team (Late st Contact Info) Description 03/25/[address] [address] Mariel Galindo APRN CNP [...] PM CDT Legal Sex Female 10:33 AM DRY CELL TESTER Gender Identity Female 04/07/2021 2:32 PM CDT [...] # refills: 1 Last Office Visit with [facility] primary care provider: 10/23/2016, Mateo Last PHQ-9 [...] documented as of this encounter Care Teams Batch Unloader Relationship Specialty Start Date End Date Mariel Galindo APRN CNP PCP - General Nurse Practitioner 08/13/14 06/08/22 Mariel Galindo APRN LAND CONSERVATION SPECIALIST PCP - Assigned PCP 10/21/14 11/15/18 No Ref-Primary, Physician PCP - General 06/09/22 06/02/23 Mariel Galindo APRN CNP Assigned PCP 10/21/14 04/10/22 Samia Silverman MD [address] [place] [id number] Assigned OBGYN Provider 08/04/20 Mariel Galindo APRN LAND CONSERVATION SPECIALIST Assigned PCP 06/27/22 01/08/23 Nadege Jones APRN CNP [address] [facility] [place] [address] Assigned PCP 01/09/23 01/15/23 Mariel Galindo APRN LAND CONSERVATION SPECIALIST Assigned PCP 01/16/23 04/23/23 Nadege Jones APRN LAND CONSERVATION SPECIALIST [address] [place] [address] Assigned PCP 04/24/23 10/06/23 Mariel Galindo APRN CNP Assigned PCP 10/07/23 11/04/23 Mariel Galindo APRN LAND CONSERVATION SPECIALIST Assigned PCP 11/05/23 12/03/23 Mariel Galindo, WARREN LAND CONSERVATION SPECIALIST Assigned PCP 12/04/23 01/03/24 Deja Mendez PA-C [address] [place] [address] Assigned PCP 01/04/24 documented as of this encounter
--- OUTSIDE RECORDS SUMMARY | 2024-07-14 10:31 | XMS_ITS | Encounter Summary ---
Author Organization [facility] Address [address] [place] [address] Care Team Providers Care Mmi Teacher Name Role Phone Mariel Galindo APRN, CNP Primary Care Provi adam Unavailable Mateo, Mariel Stout APRN CUSTOMER EQUIPMENT ENGINEER Unavailable Un available Samia Silverman MD Unavailable [phone] No Ref-Primary, Physician Primary Care Provider Mateo, Mariel Stout APRN CUSTOMER EQUIPMENT ENGINEER Unavailable Un available Nadege Jones APRN CUSTOMER EQUIPMENT ENGINEER Unavailable Mateo, Mariel Stout APRN CUSTOMER EQUIPMENT ENGINEER Unavailable Un available Nadege Jones APRN CUSTOMER EQUIPMENT ENGINEER Unavailable [phone] Mateo, Mariel Stout APRN CUSTOMER EQUIPMENT ENGINEER Unavailable Un available Mateo, Mariel Stout APRN CUSTOMER EQUIPMENT ENGINEER Unavailable Un available MateoMariel meng APRN CUSTOMER EQUIPMENT ENGINEER Unavailable Un available Deja Mendez PA-C Unavailable Reason for Visit * Reason Onset Date Comments Refill Request 07/07/2021 Encounter Details Date Type Department Care Team (Late st Contact Info) Description 07/07/2021 [facility] [address] [address] Mariel Galindo APRN CNP Refill Request Social History Tobacco Use Types Packs/Day Years Used Date Smoking Tobacco: Never Smokeless Tobacco: Never Alcohol Use Standard Drinks/Week Comments Not Currently 0 (1 standard drink = 0.6 oz pur e alcohol) wine occasionally PHQ-2 Answer Date Recorded PHQ-2 Total Score (Adult) - Positive if 3 or more points; Administer PHQ-9 if positive 2 07/09/2021 [place] Depression Scale Answer Date Recorded [place] Depression Score 16 12/04/2020 Last EPDS Self Harm Result Not on file 12/04 Comments No Sex and Gender Information Value Date Recorded Sex Assigned at Female 04/07/2021 2:32 PM CDT Legal Sex Female 10:33 AM GLASS TUBE BENDER Gender Identity Female 04/07/2021 2:32 PM CDT [...] documented as of this encounter Care Teams Mmi Teacher Relationship Specialty Start Date End Date Mariel Galindo APRN CUSTOMER EQUIPMENT ENGINEER PCP - General Nurse Practitioner 08/13/14 06/08/22 No Ref-Primary, Physician PCP - General 06/09/22 06/02/23 Mariel Galindo APRN CUSTOMER EQUIPMENT ENGINEER Assigned PCP 10/21/14 04/10/22 Samia Silverman MD [address] [id number] Assigned OBGYN Provider 08/04/20 Mariel Galindo APRN CUSTOMER EQUIPMENT ENGINEER Assigned PCP 06/27/22 01/08/23 Nadege Jones APRN CUSTOMER EQUIPMENT ENGINEER [address] [place] [address] Assigned PCP 01/09/23 01/15/23 Mateo, Mariel Stout APRN CUSTOMER EQUIPMENT ENGINEER Assigned PCP 01/16/23 04/23/23 Nadege Jones APRN CUSTOMER EQUIPMENT ENGINEER [address] [place], [place] [address] Assigned PCP 04/24/23 10/06/23 Mateo, Mariel Stout APRN CUSTOMER EQUIPMENT ENGINEER Assigned PCP 10/07/23 11/04/23 Mateo, Mariel Stout APRN CUSTOMER EQUIPMENT ENGINEER Assigned PCP 11/05/23 12/03/23 Mateo, Mariel Stout APRN CUSTOMER EQUIPMENT ENGINEER Assigned PCP 12/04/23 01/03/24 Deja Mendez PA-C [address] [place] [address] Assigned PCP 01/04/24 documented as of this encounter
--- OUTSIDE RECORDS SUMMARY | 2024-07-14 10:31 | XMS_ITS | Encounter Summary ---
Author Organization [facility] Address [address] [place] [address] Care Team Providers Care Stranding Supervisor Name Role Phone Mateo, Mariel Stout APRN AUTOMOBILE RADIO REPAIRER Primary Care Provi adam Unavailable Mateo, Mariel Stout APRN AUTOMOBILE RADIO REPAIRER Unavailable Un available Samia Silverman MD Unavailable No Ref-Primary, Physician Primary Care Provider Mateo, Mariel Stout APRN AUTOMOBILE RADIO REPAIRER Unavailable Un available Nadege Jones APRN AUTOMOBILE RADIO REPAIRER Unavailable Mateo, Mariel Stout APRN AUTOMOBILE RADIO REPAIRER Unavailable Un available Nadege Jones APRN AUTOMOBILE RADIO REPAIRER Unavailable Mateo, Mariel Stout APRN AUTOMOBILE RADIO REPAIRER Unavailable Un available Mateo, Mariel Stout APRN AUTOMOBILE RADIO REPAIRER Unavailable Un available Mateo, Mariel Stout APRN AUTOMOBILE RADIO REPAIRER Unavailable Un available Deja Mendez PA-C Unavailable Reason for Visit * Reason Onset Date Comments Refill Request 06/20/2019 [facility] Encounter Details Date Type Department Care Team (Late st Contact Info) Description 06/20/2019 [facility] [address] [address] Mariel Galindo APRN CNP Refill Request (Earnest) [...] PM CDT Legal Sex Female 10:33 AM PRESS MACHINE OPERATOR Gender Identity Female 04/07/2021 2:32 [...] for review/approval because: Drug not on the [facility] refill protocol CARPENTRY PROFESSIONAL: .31. Annual Controlled substance agreement: 416 Annual [...] SHOULD BE DELETED.) Last Office Visit with [facility] primary care provider: 10/24/2018-Mariel Galindo [...] consultation, please call . Analysis performed by [facility], [address] [place] [address] , No results found for: COMDAT, No results found for: THC13, PCP13, COC13, MAMP13, OPI13, AMP13, BZO13, TCA13, MTD13, BAR13, OXY13, PPX13, BUP13 Processing: Send Electronically to pharmacy [email or web address] CARPENTRY PROFESSIONAL checked in past 3 months? No, route to RN documented in this encounter Plan of Treatment Not on file documented as of this encounter Visit Diagnoses Diagnosis ADHD (attention deficit hyperactivity disorder), combined type Attention deficit disorder with hyperactivity documented in this encounter Additional Health Concerns Assessment Noted Time PHQ-9 Depression Total Score: 13 019 7:06 AM PRESS MACHINE OPERATOR documented as of this encounter Care Teams Stranding Supervisor Relationship Specialty Start Date End Date Mariel Galindo APRN AUTOMOBILE RADIO REPAIRER PCP - General Nurse Practitioner 08/13/14 06/08/22 No Ref-Primary, Physician PCP - General 06/09/22 06/02/23 Mariel Galindo APRN AUTOMOBILE RADIO REPAIRER Assigned PCP 10/21/14 04/10/22 Samia Silverman MD [address] [place] [address] Assigned OBGYN Provider 08/04/20 Mateo, Mariel Stout APRN AUTOMOBILE RADIO REPAIRER Assigned PCP 06/27/22 01/08/23 Nadege Jones APRN AUTOMOBILE RADIO REPAIRER [address] [place] [phone] Assigned PCP 01/09/23 01/15/23 Mateo, Mariel Stout APRN AUTOMOBILE RADIO REPAIRER Assigned PCP 01/16/23 04/23/23 Nadege Jones APRN AUTOMOBILE RADIO REPAIRER [address] [place] [phone] Assigned PCP 04/24/23 10/06/23 Mateo, Mariel Stout APRN AUTOMOBILE RADIO REPAIRER Assigned PCP 10/07/23 11/04/23 Mateo, Mariel Stout APRN AUTOMOBILE RADIO REPAIRER Assigned PCP 11/05/23 12/03/23 Mateo, Mariel Stout APRN AUTOMOBILE RADIO REPAIRER Assigned PCP 12/04/23 01/03/24 Deja Mendez PA-C [address] [place] [address] Assigned PCP 01/04/24 documented as of this encounter
--- OUTSIDE RECORDS SUMMARY | 2024-07-14 10:31 | XMS_ITS | Encounter Summary ---
Author Organization [facility] Address [address] [place] [address]. [place] [address] Care Team Providers Care Lift Operator Name Role Phone Mateo, Mariel Stout COOPERATIVE EXTENSION AGENT SOLID WASTE MANAGER Primary Care Provi adam Unavailable Mateo, Mariel Stout COOPERATIVE EXTENSION AGENT SOLID WASTE MANAGER Unavailable Un available Samia Silverman MD Unavailable [phone] No Ref-Primary, Physician Primary Care Provider Mateo, Mariel Stout COOPERATIVE EXTENSION AGENT SOLID WASTE MANAGER Unavailable Un available Nadege Jones APRN SOLID WASTE MANAGER Unavailable Mateo, Mariel Argelia COOPERATIVE EXTENSION AGENT SOLID WASTE MANAGER Unavailable Un available Nadege Jones APRN SOLID WASTE MANAGER Unavailable Mateo, Mariel Stout APRN SOLID WASTE MANAGER Unavailable Un available Mateo, Mariel Stout APRN SOLID WASTE MANAGER Unavailable Un available Mateo, Mariel Stout APRN SOLID WASTE MANAGER Unavailable Un available Deja Mendez PA-C Unavailable [phone] Encounter Details Date Type Department Care Team (Late st Contact Info) Description 09/27/2019 [facility] [place] Medical Advice [address] [place] [address] Mimi Sun Social History Tobacco [...] PM CDT Legal Sex Female 10:33 AM JEWELRY FACER Gender Identity Female 04/07/2021 2:32 PM CDT Sexual Orientation Straight 04/07/2021 2: 32 PM CDT documented as of this encounter Plan of Treatment Not on file documented as of this encounter Visit Diagnoses Not on filedocumented in this encounter Additional Health Concerns Assessment Noted Time PHQ-9 Depression Total Score: 9 07/28/20 19 8:28 AM JEWELRY FACER documented as of this encounter Care Teams Lift Operator Relationship Specialty Start Date End Date Mariel Galindo APRN CNP PCP - General Nurse Practitioner 08/13/14 06/08/22 No Ref-Primary, Physician PCP - General 06/09/22 06/02/23 Mariel Galindo APRN SOLID WASTE MANAGER Assigned PCP 10/21/14 04/10/22 Samia Silverman MD [address] [address] Assigned OBGYN Provider 08/04/20 Mariel Galindo APRN SOLID WASTE MANAGER Assigned PCP 06/27/22 01/08/23 Nadege Jones APRN SOLID WASTE MANAGER [address] [place] [phone] Assigned PCP 01/09/23 01/15/23 Mariel Galindo APRN SOLID WASTE MANAGER Assigned PCP 01/16/23 04/23/23 Nadege Jones APRN SOLID WASTE MANAGER [address] [place] [phone] Assigned PCP 04/24/23 10/06/23 MateoMariel meng APRN SOLID WASTE MANAGER Assigned PCP 10/07/23 11/04/23 MateoMariel meng APRN SOLID WASTE MANAGER Assigned PCP 11/05/23 12/03/23 MateoMariel meng APRN SOLID WASTE MANAGER Assigned PCP 12/04/23 01/03/24 Deja Mendez PA-C [address] [place] [address] Assigned PCP 01/04/24 documented as of this encounter
--- OUTSIDE RECORDS SUMMARY | 2024-07-14 10:31 | XMS_ITS | Encounter Summary ---
Author Organization [facility] Address [address] [place] [address] Care Team Providers Care Sustainability Coach Name Role Phone Mateo, Mariel Stout TOE LINING CLOSER BARROW WORKER Primary Care Provi adam Unavailable Mateo, Mariel Stout TOE LINING CLOSER BARROW WORKER Unavailable Un available Samia Silverman MD Unavailable [phone] No Ref-Primary, Physician Primary Care Provider Mateo, Mariel Stout APRN BARROW WORKER Unavailable Un available Nadege Jones APRN BARROW WORKER Unavailable Mateo, Mariel Stout APRN BARROW WORKER Unavailable Un available Nadege Jones APRN BARROW WORKER Unavailable [phone] Mateo, Mariel Stout APRN BARROW WORKER Unavailable Un available Mateo, Mariel Stout APRN BARROW WORKER Unavailable Un available MateoMariel APRN BARROW WORKER Unavailable Un available Deja Mendez PA-C Unavailable [phone] Encounter Details Date Type Department Care [...] PM CDT Legal Sex Female 10:33 AM ACTIVE DIRECTORY ADMINISTRATOR Gender Identity Female 04/07/2021 2:32 PM [...] documented as of this encounter Care Teams Sustainability Coach Relationship Specialty Start Date End Date Mariel Galindo APRN CNP PCP - General Nurse Practitioner 08/13/14 06/08/22 No Ref-Primary, Physician PCP - General 06/09/22 06/02/23 Mariel Galindo APRN BARROW WORKER Assigned PCP 10/21/14 04/10/22 Samia Silverman MD [address] [place] [address] Assigned OBGYN Provider 08/04/20 Mariel Galindo APRN BARROW WORKER Assigned PCP 06/27/22 01/08/23 Nadege Jones APRN BARROW WORKER [address] [place] [address] Assigned PCP 01/09/23 01/15/23 Mariel Galindo APRN BARROW WORKER Assigned PCP 01/16/23 04/23/23 Nadege Jones APRN BARROW WORKER [address] [place] [address] Assigned PCP 04/24/23 10/06/23 Mariel Galindo APRN BARROW WORKER Assigned PCP 10/07/23 11/04/23 MateoMariel meng APRN BARROW WORKER Assigned PCP 11/05/23 12/03/23 Mariel Galindo APRN BARROW WORKER Assigned PCP 12/04/23 01/03/24 Deja Mendez PA-C [address] [place] [address] Assigned PCP 01/04/24 documented as of this encounter
--- OUTSIDE RECORDS SUMMARY | 2024-07-14 10:31 | XMS_ITS | Encounter Summary ---
Author Organization [facility] Address [address] [place] [address] Care Team Providers Care Waiter Name Role Phone Mariel Galindo APRN, CNP Primary Care Provi adam Unavailable Mateo, Mariel Stout APRN LPN PER DIEM Unavailable Un available Samia Silverman MD Unavailable [phone] No Ref-Primary, Physician Primary Care Provider Mateo, Mariel Stout APRN LPN PER DIEM Unavailable Un available Nadege Jones APRN LPN PER DIEM Unavailable Mateo, Mariel Stout APRN LPN PER DIEM Unavailable Un available Nadege Jones APRN LPN PER DIEM Unavailable Mateo, Mariel Stout APRN LPN PER DIEM Unavailable Un available Mateo, Mariel Stout APRN LPN PER DIEM Unavailable Un available MateoMariel meng APRN LPN PER DIEM Unavailable Un available Deja Mendez PA-C Unavailable [phone] Reason for Visit * Reason Onset Date Comments Refill Request 10/09/2021 Encounter Details Date Type Department Care Team (Late st Contact Info) Description 10/09/2021 [facility] [address] [address] Mariel Galindo APRN CNP Refill Request Social History Tobacco Use Types Packs/Day Years Used Date Smoking Tobacco: Never Smokeless Tobacco: Never Alcohol Use Standard Drinks/Week Comments Not Currently 0 (1 standard drink = 0.6 oz pur e alcohol) wine occasionally PHQ-2 Answer Date Recorded PHQ-2 Total Score (Adult) - Positive if 3 or more points; Administer PHQ-9 if positive 2 07/09/2021 [place] Depression Scale Answer Date Recorded [place] Depression Score 16 12/04/2020 Last EPDS Self Harm Result Not on file 12/04 Comments No Sex and Gender Information Value Date Recorded Sex Assigned at Female 04/07/2021 2:32 PM CDT Legal Sex Female 10:33 AM SENIOR TECHNICAL WRITER Gender Identity Female 04/07/2021 2:32 PM CDT Sexual Orientation Straight 04/07/2021 2: 32 PM CDT documented as of this encounter Miscellaneous Notes * Telephone Encounter - Mariel Pedersen RN - 10/09/2021 8:54 AM CST Routing refill request to provider for review/approval because: Drug not on the [facility] refill protocol Mariel Pedersen RN on 10/09/2021 at 8:54 AM OR TECHNICAL WRITER documented in this encounter Plan of Treatment Not on file documented as of this encounter Visit Diagnoses Diagnosis ADHD (attention deficit hyperactivity disorder), combined type Attention deficit disorder with hyperactivity documented in this encounter Additional Health Concerns Assessment Noted Time PHQ-9 Depression Total Score: 12 021 7:02 AM CDT documented as of this encounter Care Teams Waiter Relationship Specialty Start Date End Date Mariel Galindo APRN LPN PER DIEM PCP - General Nurse Practitioner 08/13/14 06/08/22 No Ref-Primary, Physician PCP - General 06/09/22 06/02/23 Mariel Galindo APRN CNP Assigned PCP 10/21/14 04/10/22 Samia Silverman MD [address] [address] Assigned OBGYN Provider 08/04/20 Mateo, Mariel Stout APRN LPN PER DIEM Assigned PCP 06/27/22 01/08/23 Nadege Jones APRN LPN PER DIEM [address] [place], [place] [phone] Assigned PCP 01/09/23 01/15/23 Mateo, Mariel Stout APRN LPN PER DIEM Assigned PCP 01/16/23 04/23/23 Nadege Jones APRN LPN PER DIEM [address] [place], [place] [phone] Assigned PCP 04/24/23 10/06/23 Mateo, Mariel Stout APRN LPN PER DIEM Assigned PCP 10/07/23 11/04/23 Mateo, Mariel Stout APRN LPN PER DIEM Assigned PCP 11/05/23 12/03/23 Mateo, Mariel Stout APRN LPN PER DIEM Assigned PCP 12/04/23 01/03/24 Deaj Mendez PA-C [address] [place] [address] Assigned PCP 01/04/24 documented as of this encounter
--- OUTSIDE RECORDS SUMMARY | 2024-07-14 10:31 | XMS_ITS | Encounter Summary ---
Author Organization [facility] Address [address] [place] [address] Care Team Providers Care Eyedotter Name Role Phone Mariel Galindo APRN, CNP Primary Care Provi adam Unavailable Mateo, Mariel Stout APRN BLADE GRINDER Unavailable Un available Samia Silverman MD Unavailable [phone] No Ref-Primary, Physician Primary Care Provider Mateo, Mariel Stout APRN BLADE GRINDER Unavailable Un available Nadege Jones APRN BLADE GRINDER Unavailable Mateo, Mariel Stout APRN BLADE GRINDER Unavailable Un available Nadege Jones APRN BLADE GRINDER Unavailable Mateo, Mariel Stout APRN BLADE GRINDER Unavailable Un available Mateo, Mariel Stout APRN BLADE GRINDER Unavailable Un available MateoMariel meng APRN BLADE GRINDER Unavailable Un available Deja Mendez PA-C Unavailable [phone] Reason for Visit * Reason Onset Date Comments Refill Request 06/06/2021 Encounter Details Date Type Department Care Team (Late st Contact Info) Description 06/06/2021 Radha [facility] [address] [address] Mariel Galindo APRN CNP Refill Request Social History Tobacco Use Types Packs/Day Years Used Date Smoking Tobacco: Never Smokeless Tobacco: Never Alcohol Use Standard Drinks/Week Comments Not Currently 0 (1 standard drink = 0.6 oz pur e alcohol) wine occasionally PHQ-2 Answer Date Recorded PHQ-2 Total Score (Adult) - Positive if 3 or more points; Administer PHQ-9 if positive 0 04/07/2021 [place] Depression Scale Answer Date Recorded [place] Depression Score 16 12/04/2020 Last EPDS Self Harm Result Not on file 12/04 Comments No Sex and Gender Information Value Date Recorded Sex Assigned at Female 04/07/2021 2:32 PM CDT Legal Sex Female 10:33 AM MEDICAL DIR Gender Identity Female 04/07/2021 2:32 PM CDT [...] documented as of this encounter Care Teams Eyedotter Relationship Specialty Start Date End Date Mariel Galindo APRN BLADE GRINDER PCP - General Nurse Practitioner 08/13/14 06/08/22 No Ref-Primary, Physician PCP - General 06/09/22 06/02/23 Mariel Galindo APRN BLADE GRINDER Assigned PCP 10/21/14 04/10/22 Samia Silverman MD [address] [address] Assigned OBGYN Provider 08/04/20 Mateo, Mariel Stout APRN BLADE GRINDER Assigned PCP 06/27/22 01/08/23 Nadege Jones APRN BLADE GRINDER [address], [place] [phone] Assigned PCP 01/09/23 01/15/23 Mateo, Mariel Stout APRN BLADE GRINDER Assigned PCP 01/16/23 04/23/23 Nadege Jones APRN BLADE GRINDER [address] [place], [place] [phone] Assigned PCP 04/24/23 10/06/23 Mateo, Mariel Stout APRN BLADE GRINDER Assigned PCP 10/07/23 11/04/23 Mateo, Mariel Stout APRN BLADE GRINDER Assigned PCP 11/05/23 12/03/23 Mateo, Mariel Stout APRN BLADE GRINDER Assigned PCP 12/04/23 01/03/24 Deja Mendez PA-C [address] [place] [address] Assigned PCP 01/04/24 documented as of this encounter
--- OUTSIDE RECORDS SUMMARY | 2024-07-14 10:31 | XMS_ITS | Encounter Summary ---
Author Organization [facility] Address [address] [place] [address] Care Team Providers Care Brush Painter Name Role Phone Maeto, Mariel Stout SURFACE GRINDER SENIOR PLANNING MANAGER Primary Care Provi adam Unavailable Mateo, Mariel Stout SURFACE GRINDER SENIOR PLANNING MANAGER Unavailable Un available aSmia Silverman MD Unavailable [phone] No Ref-Primary, Physician Primary Care Provider Mateo, Mariel Stout SURFACE GRINDER SENIOR PLANNING MANAGER Unavailable Un available Nadege Jones APRN SENIOR PLANNING MANAGER Unavailable Mateo, Mariel Argelia SURFACE GRINDER SENIOR PLANNING MANAGER Unavailable Un available Nadege Jones APRN SENIOR PLANNING MANAGER Unavailable [phone] Mateo, Mariel Stout APRN SENIOR PLANNING MANAGER Unavailable Un available Mateo, Mariel Stout APRN SENIOR PLANNING MANAGER Unavailable Un available Mateo, Mariel Stout APRN SENIOR PLANNING MANAGER Unavailable Un available Deja Mendez PA-C Unavailable [phone] Encounter Details Date Type Department Care Team (Late st Contact Info) Description 09/16/2020 [facility] Medical Advice [address] [address] Sheyla Cespedes, AUTOMOTIVE SHOP FOREMAN Social History Tobacco Use Types Packs/Day Years Used Date Smoking Tobacco: Never Smokeless Tobacco: Never Alcohol Use Standard Drinks/Week Comments Yes 0 (1 standard drink = 0.6 oz pur e alcohol) wine occasionally PHQ-2 Answer Date Recorded PHQ-2 Score 2 07/28/2019 Comments Yes Sex and Gender Information Value Date Recorded Sex Assigned at Female 04/07/2021 2:32 PM CDT Legal Sex Female 10:33 AM RANGE MOUNTER Gender Identity Female 04/07/2021 2:32 PM CDT Sexual Orientation Straight 04/07/2021 2 :32 PM CDT documented as of this encounter Plan of Treatment Not on file documented as of this encounter Visit Diagnoses Not on filedocumented in this encounter Additional Health Concerns Assessment Noted Time PHQ-9 Depression Total Score: 10 020 2:27 PM CDT documented as of this encounter Care Teams Brush Painter Relationship Specialty Start Date End Date Mariel Galindo APRN CNP PCP - General Nurse Practitioner 08/13/14 06/08/22 No Ref-Primary, Physician PCP - General 06/09/22 06/02/23 Mariel Galindo APRN CNP Assigned PCP 10/21/14 04/10/22 Samia Silverman MD [address] [id number] Assigned OBGYN Provider 08/04/20 Mariel Galindo APRN SENIOR PLANNING MANAGER Assigned PCP 06/27/22 01/08/23 Nadege Jones APRN SENIOR PLANNING MANAGER [address] [place] [phone] Assigned PCP 01/09/23 01/15/23 Mariel Galindo APRN SENIOR PLANNING MANAGER Assigned PCP 01/16/23 04/23/23 Nadege Jones APRN SENIOR PLANNING MANAGER [address] [place] [phone] Assigned PCP 04/24/23 10/06/23 MateoMariel meng APRN SENIOR PLANNING MANAGER Assigned PCP 10/07/23 11/04/23 MateoMariel meng APRN SENIOR PLANNING MANAGER Assigned PCP 11/05/23 12/03/23 MateoMariel meng APRN SENIOR PLANNING MANAGER Assigned PCP 12/04/23 01/03/24 Deja Mendez PA-C [address] [place] [phone] Assigned PCP 01/04/24 documented as of this encounter
--- OUTSIDE RECORDS SUMMARY | 2024-07-14 10:31 | XMS_ITS | Encounter Summary ---
Author Organization [facility] Address [address] [place] [address] Care Team Providers Care Double Bottom Driver Name Role Phone Mateo, Mariel Stout APRN, CNP Primary Care Provi adam Unavailable Mateo, Mariel Stout APRN TEMPLER HEAD Unavailable Un available Samia Silverman MD Unavailable No Ref-Primary, Physician Primary Care Provider Mateo, Mariel Stout APRN TEMPLER HEAD Unavailable Un available Nadege Jones APRN TEMPLER HEAD Unavailable Mateo, Mariel Stout APRN TEMPLER HEAD Unavailable Un available Nadege Jones APRN TEMPLER HEAD Unavailable [phone] Mateo, Mariel Stout APRN TEMPLER HEAD Unavailable Un available Mateo, Mariel Stout APRN TEMPLER HEAD Unavailable Un available MateoMariel meng APRN TEMPLER HEAD Unavailable Un available Deja Mendez PA-C Unavailable [phone] Reason for Visit * Reason Comments Medication Refill Encounter Details Date Type Department Care Team (Late st Contact Info) Description 02/02/[address] [address] Mariel Galindo APRN CNP Medication Refill Social History Tobacco Use Types Packs/Day Years Used Date Smoking Tobacco: Never Smokeless Tobacco: Never Alcohol Use Standard Drinks/Week Comments Not Currently 0 (1 standard drink = 0.6 oz pur e alcohol) wine occasionally PHQ-2 Answer Date Recorded PHQ-2 Score 3 12/23/2020 [place] Depression Scale Answer Date Recorded [place] Depression Score 16 12/04/2020 Last EPDS Self Harm Result Not on file 12/04 Comments No Sex and Gender Information Value Date Recorded Sex Assigned at Female 04/07/2021 2:32 PM CDT Legal Sex Female 10:33 AM WASTE RECLAIMER Gender Identity Female 04/07/2021 2:32 PM CDT Sexual Orientation Straight 04/07/2021 2: 32 PM CDT documented as of this encounter Miscellaneous Notes * Telephone Encounter - Marcela Benedict RN - 02/04/2021 2:19 PM CDT Routing refill request to provider for review/approval because: Elevated PHQ-[address] [facility] -- Triage Nurse documented in this encounter Plan of Treatment Not on file documented as of this encounter Visit Diagnoses Diagnosis Moderate major depression (H) Major depressive disorder, single episode, moderate documented in this encounter Additional Health Concerns Assessment Noted Time PHQ-9 Depression Total Score: 17 021 1:27 PM CDT documented as of this encounter Care Teams Double Bottom Driver Relationship Specialty Start Date End Date Marile Galindo APRN TEMPLER HEAD PCP - General Nurse Practitioner 08/13/14 06/08/22 No Ref-Primary, Physician PCP - General 06/09/22 06/02/23 Mariel Galindo APRN TEMPLER HEAD Assigned PCP 10/21/14 04/10/22 Samia Silverman MD [address] [address] Assigned OBGYN Provider 08/04/20 Mariel Galindo APRN CNP Assigned PCP 06/27/22 01/08/23 Nadege Jones APRN TEMPLER HEAD [address] [place], [place] [phone] Assigned PCP 01/09/23 01/15/23 Mateo, Mariel Stout APRN TEMPLER HEAD Assigned PCP 01/16/23 04/23/23 Nadege Jones APRN TEMPLER HEAD [address] [place], [place] [phone] Assigned PCP 04/24/23 10/06/23 Mateo, Mariel Stout APRN TEMPLER HEAD Assigned PCP 10/07/23 11/04/23 Mateo, Mariel Stout APRN TEMPLER HEAD Assigned PCP 11/05/23 12/03/23 Matoe, Mariel Stout APRN TEMPLER HEAD Assigned PCP 12/04/23 01/03/24 Deja Mendez PA-C [address] [place] [address] Assigned PCP 01/04/24 documented as of this encounter
--- OUTSIDE RECORDS SUMMARY | 2024-07-14 10:31 | XMS_ITS | Encounter Summary ---
Author Organization [facility] Address [address] [place] [address] Care Team Providers Care Gas Appliance Servicer Helper Name Role Phone Mateo, Mariel Stout PILOT SAFETY INSPECTOR METAL BUFFER Primary Care Provi adam Unavailable Mateo, Mariel Stout PILOT SAFETY INSPECTOR METAL BUFFER Unavailable Un available No Ref-Primary, Physician Primary Care Provider Mateo, Mariel Stout APRN METAL BUFFER Unavailable Un available Nadege Jones APRN METAL BUFFER Unavailable [phone] Mateo, Mariel Stout APRN METAL BUFFER Unavailable Un available Nadege Jones APRN METAL BUFFER Unavailable Mateo, Mariel Stout APRN METAL BUFFER Unavailable Un available Mateo, Mariel Stout APRN METAL BUFFER Unavailable Un available Mateo, Mariel Stout APRN METAL BUFFER Unavailable Un available Deja Mendez PA-C Unavailable [phone] Encounter Details Date Type Department Care Team (Late st Contact Info) Description 02/10/2022 [facility] [address] [place] [address] Tamra Chavez PA-C [address] [place], [place] [id number] Social History Tobacco Use Types Packs/Day Years Used Date Smoking Tobacco: Never Smokeless Tobacco: Never Alcohol Use Standard Drinks/Week Comments Yes 0 (1 standard drink = 0.6 oz pur e alcohol) wine occasionally PHQ-2 Answer Date Recorded PHQ-2 Score 2 11/21/2021 [place] Depression Scale Answer Date Recorded [place] Depression Score 16 12/04/2020 Last EPDS Self Harm Result Not on file 12/04 Comments No Sex and Gender Information Value Date Recorded Sex Assigned at Female 04/07/2021 2:32 PM CDT Legal Sex Female 10:33 AM AIR TESTER Gender Identity Female 04/07/2021 2:32 PM [...] Depression Total Score: 13 022 7:03 AM AIR TESTER documented as of this encounter Care Teams Gas Appliance Servicer Helper Relationship Specialty Start Date End Date Mariel Galindo APRN CNP PCP - General Nurse Practitioner 08/13/14 06/08/22 No Ref-Primary, Physician PCP - General 06/09/22 06/02/23 Mariel Galindo APRN CNP Assigned PCP 10/21/14 04/10/22 Mariel Galindo APRN CNP Assigned PCP 06/27/22 01/08/23 Nadege Jnoes APRN CNP [address] [place] [phone] Assigned PCP 01/09/23 01/15/23 Mariel Galindo APRN CNP Assigned PCP 01/16/23 04/23/23 Nadege Jones APRN CNP [address] [place] [phone] Assigned PCP 04/24/23 10/06/23 Mateo, Mariel Stout APRN METAL BUFFER Assigned PCP 10/07/23 11/04/23 Mateo, Mariel Stout APRN METAL BUFFER Assigned PCP 11/05/23 12/03/23 Mateo, Mariel Stout APRN METAL BUFFER Assigned PCP 12/04/23 01/03/24 Deja Mendez PA-C [address] [place] [address] Assigned PCP 01/04/24 documented as of this encounter
--- OUTSIDE RECORDS SUMMARY | 2024-07-14 10:31 | XMS_ITS | Encounter Summary ---
Author Organization [facility] Address [address] [place] [address] Care Team Providers Care Forensic Investigator Name Role Phone Mateo, Mariel Stout APRN, CNP Primary Care Provi adam Unavailable Mateo, Mariel Stout APRN VESSEL LINER Unavailable Un available Samia Silverman MD Unavailable [phone] No Ref-Primary, Physician Primary Care Provider Mateo, Mariel Stout APRN VESSEL LINER Unavailable Un available Nadege Jones APRN VESSEL LINER Unavailable Mateo, Mariel Stout APRN VESSEL LINER Unavailable Un available Nadege Jones APRN VESSEL LINER Unavailable [phone] Mateo, Mariel Stout APRN VESSEL LINER Unavailable Un available Mateo, Mariel Stout APRN VESSEL LINER Unavailable Un available MateoMariel meng APRN VESSEL LINER Unavailable Un available Deja Mendez PA-C Unavailable [phone] Reason for Visit * Reason Onset Date Comments Refill Request 03/06/2021 Encounter Details Date Type Department Care Team (Late st Contact Info) Description 03/06/2021 [facility] Refill [facility] [address] [address] Mariel Galindo APRN CNP Refill Request Social History Tobacco Use Types Packs/Day Years Used Date Smoking Tobacco: Never Smokeless Tobacco: Never Alcohol Use Standard Drinks/Week Comments Not Currently 0 (1 standard drink = 0.6 oz pur e alcohol) wine occasionally PHQ-2 Answer Date Recorded PHQ-2 Total Score (Adult) - Positive if 3 or more points; Administer PHQ-9 if positive 0 03/06/2021 [place] Depression Scale Answer Date Recorded [place] Depression Score 16 12/04/2020 Last EPDS Self Harm Result Not on file 12/04 Comments No Sex and Gender Information Value Date Recorded Sex Assigned at Female 04/07/2021 2:32 PM CDT 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 Gender Identity Female 04/07/2021 2:32 PM CDT [...] as of this encounter Care Teams Forensic Investigator Relationship Specialty Start Date End Date Mariel Galindo APRN VESSEL LINER PCP - General Nurse Practitioner 08/13/14 06/08/22 No Ref-Primary, Physician PCP - General 06/09/22 06/02/23 Mateo, Mariel Stout APRN VESSEL LINER Assigned PCP 10/21/14 04/10/22 Samia Silverman MD [address] [place] [address] Assigned OBGYN Provider 08/04/20 Mateo, Mariel Stout APRN VESSEL LINER Assigned PCP 06/27/22 01/08/23 Nadege Jones APRN VESSEL LINER [address] [place] [phone] Assigned PCP 01/09/23 01/15/23 Mateo, Mariel Stout APRN VESSEL LINER Assigned PCP 01/16/23 04/23/23 Ndaege Jones APRN VESSEL LINER [address] [place] [phone] Assigned PCP 04/24/23 10/06/23 Mateo, Mariel Stout APRN VESSEL LINER Assigned PCP 10/07/23 11/04/23 Mateo, Mariel Stout APRN VESSEL LINER Assigned PCP 11/05/23 12/03/23 Mateo, Mariel Stout APRN VESSEL LINER Assigned PCP 12/04/23 01/03/24 Deja Mendez PA-C [address] [place] [address] Assigned PCP 01/04/24 documented as of this encounter
--- OUTSIDE RECORDS SUMMARY | 2024-07-14 10:31 | XMS_ITS | Encounter Summary ---
Author Organization [facility] Address [address] [place] [address] Care Team Providers Care Continuous Mining Machine Company Miner Name Role Phone MateoMariel meng APRN NEWBORN PHOTOGRAPHER Primary Care Provi adam Unavailable Mateo, Mariel Stout APRN NEWBORN PHOTOGRAPHER Unavailable Un available Mateo, Mariel Stout APRN NEWBORN PHOTOGRAPHER Unavailable Un available Samia Silverman MD Unavailable [phone] No Ref-Primary, Physician Primary Care Provider Mateo, Mariel Stout APRN NEWBORN PHOTOGRAPHER Unavailable Un available Nadege Jones APRN NEWBORN PHOTOGRAPHER Unavailable Mateo, Mariel Stout APRN NEWBORN PHOTOGRAPHER Unavailable Un available Nadege Jones APRN NEWBORN PHOTOGRAPHER Unavailable [phone] Mateo, Mariel Stout APRN NEWBORN PHOTOGRAPHER Unavailable Un available Mateo, Mariel Stout APRN NEWBORN PHOTOGRAPHER Unavailable Un available Mateo, Mariel Stout APRN NEWBORN PHOTOGRAPHER Unavailable Un available Deja Mendez PA-C Unavailable [phone] Encounter Details Date Type Department Care [...] PM CDT Legal 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 Gender Identity Female 04/07/2021 2:32 PM CDT Sexual Orientation Straight 04/07/2021 2: 32 PM CDT documented as of this encounter Plan of Treatment Not on file documented as of this encounter Visit Diagnoses Not on filedocumented in this encounter Additional Health Concerns Assessment Noted Time PHQ-9 Depression Total Score: 12 017 7:21 AM DISC PAD KNOCKOUT WORKER documented as of this encounter Care Teams Continuous Mining Machine Company Miner Relationship Specialty Start Date End Date Mariel Galindo APRN CNP PCP - General Nurse Practitioner 08/13/14 06/08/22 Mariel Galindo APRN CNP PCP - Assigned PCP 10/21/14 11/15/18 No Ref-Primary, Physician PCP - General 06/09/22 06/02/23 Mariel Galindo APRN CNP Assigned PCP 10/21/14 04/10/22 Samia Silverman MD [address] [address] Assigned OBGYN Provider 08/04/20 Mariel Galindo APRN CNP Assigned PCP 06/27/22 01/08/23 Nadege Jones APRN NEWBORN PHOTOGRAPHER [address] [place] [phone] Assigned PCP 01/09/23 01/15/23 Mariel Galindo APRN NEWBORN PHOTOGRAPHER Assigned PCP 01/16/23 04/23/23 Nadege Jones APRN CNP [address] [place] [phone] Assigned PCP 04/24/23 10/06/23 MateoMariel meng APRN NEWBORN PHOTOGRAPHER Assigned PCP 10/07/23 11/04/23 MateoMariel meng APRN NEWBORN PHOTOGRAPHER Assigned PCP 11/05/23 12/03/23 Mariel Galindo APRN NEWBORN PHOTOGRAPHER Assigned PCP 12/04/23 01/03/24 Deja Mendez PA-C [address] [place] [address] Assigned PCP 01/04/24 documented as of this encounter
== END 2024-07-14 10:19 | disposition home or self-care (01) ==
PROVIDERS: Visit Provider Midwife
DX: E03.9 Hypothyroidism, unspecified (principal)
CPT/HCPCS: 84443

== ENCOUNTER 2024-08-04 10:45 | Outpatient (CLI) | payer OTHER, SELFPAY ==
--- OUTSIDE RECORDS SUMMARY | 2024-08-06 15:17 | XMS_ITS | Encounter Summary ---
Author Organization [facility] Address [address] [place] [address]. [place] [address] Care Team Providers Care Soil Fertility Specialist Name Role Phone Mateo, Mariel Stout ROOF TECHNICIAN REHABILITATION SUPERVISOR Primary Care Provi adam Unavailable Mateo, Mariel Stout ROOF TECHNICIAN REHABILITATION SUPERVISOR Unavailable Un available Samia Silverman MD Unavailable [phone] No Ref-Primary, Physician Primary Care Provider Mateo, Mariel Stout ROOF TECHNICIAN REHABILITATION SUPERVISOR Unavailable Un available Nadege Jones APRN REHABILITATION SUPERVISOR Unavailable Mateo, Mariel Argelia ROOF TECHNICIAN REHABILITATION SUPERVISOR Unavailable Un available Nadege Jones APRN REHABILITATION SUPERVISOR Unavailable Mateo, Mariel Stout ROOF TECHNICIAN REHABILITATION SUPERVISOR Unavailable Un available Mateo, Mariel Stout ROOF TECHNICIAN REHABILITATION SUPERVISOR Unavailable Un available Mateo, Mariel Stout ROOF TECHNICIAN REHABILITATION SUPERVISOR Unavailable Un available Deja Mendez PA-C Unavailable [phone] Encounter Details Date Type Department Care Team (Late st Contact Info) Description 03/03/2021 [facility] Medical Advice [facility] [address] [place] [address] Sheyla Cespedes, DIESEL LUBE TECH Social History Tobacco Use Types Packs/Day Years Used Date Smoking Tobacco: Never Smokeless Tobacco: Never Alcohol Use Standard Drinks/Week Comments Not Currently 0 (1 standard drink = 0.6 oz pur e alcohol) wine occasionally PHQ-2 Answer Date Recorded PHQ-2 Total Score (Adult) - Positive if 3 or more points; Administer PHQ-9 if positive 0 03/06/2021 [place] Depression Scale Answer Date Recorded [place] Depression Score 16 12/04/2020 Last EPDS Self Harm Result Not on file 12/04 Comments No Sex and Gender Information Value Date Recorded Sex Assigned at Female 04/07/2021 2:32 PM CDT Legal Sex Female 10:33 AM PHOTOCOPY OPERATOR Gender Identity Female 04/07/2021 2:32 PM CDT Sexual Orientation Straight 04/07/2021 2: 32 PM CDT documented as of this encounter Plan of Treatment Not on file documented as of this encounter Visit Diagnoses Not on filedocumented in this encounter Additional Health Concerns Assessment Noted Time PHQ-9 Depression Total Score: 10 021 7:04 AM CDT documented as of this encounter Care Teams Soil Fertility Specialist Relationship Specialty Start Date End Date Mariel Galindo APRN CNP PCP - General Nurse Practitioner 08/13/14 06/08/22 No Ref-Primary, Physician PCP - General 06/09/22 06/02/23 Mariel Galindo APRN REHABILITATION SUPERVISOR Assigned PCP 10/21/14 04/10/22 Samia Silverman MD [address] [place] [address] Assigned OBGYN Provider 08/04/20 Mariel Galindo APRN REHABILITATION SUPERVISOR Assigned PCP 06/27/22 01/08/23 Nadege Jones APRN REHABILITATION SUPERVISOR [address] [place] [address] Assigned PCP 01/09/23 01/15/23 Mariel Galindo APRN REHABILITATION SUPERVISOR Assigned PCP 01/16/23 04/23/23 Nadege Jones APRN REHABILITATION SUPERVISOR [address] [place] [phone] Assigned PCP 04/24/23 10/06/23 Mateo, Mariel Stout APRN REHABILITATION SUPERVISOR Assigned PCP 10/07/23 11/04/23 Mateo, Mariel Stout APRN REHABILITATION SUPERVISOR Assigned PCP 11/05/23 12/03/23 Mateo, Mariel Stout APRN REHABILITATION SUPERVISOR Assigned PCP 12/04/23 01/03/24 Deja Mendze PA-C [address] [place] [address] Assigned PCP 01/04/24 documented as of this encounter
--- OUTSIDE RECORDS SUMMARY | 2024-08-06 15:17 | XMS_ITS | Encounter Summary ---
Author Organization [facility] Address [address] [place] [address] Care Team Providers Care Gun Number Name Role Phone Mariel Galindo APRN, CNP Primary Care Provi adam Unavailable Mateo, Mariel Stout APRN SITE PROMOTION AGENT Unavailable Un available Samia Silverman MD Unavailable [phone] No Ref-Primary, Physician Primary Care Provider Mateo, Mariel Stout APRN SITE PROMOTION AGENT Unavailable Un available Nadege Jones APRN SITE PROMOTION AGENT Unavailable Mateo, Mariel Stout APRN SITE PROMOTION AGENT Unavailable Un available Nadege Jones APRN SITE PROMOTION AGENT Unavailable Mateo, Mariel Stout APRN SITE PROMOTION AGENT Unavailable Un available Mateo, Mariel Stout APRN SITE PROMOTION AGENT Unavailable Un available MateoMariel meng APRN SITE PROMOTION AGENT Unavailable Un available Deja Mendez PA-C Unavailable [phone] Reason for Visit * Reason Onset Date Comments Refill Request 10/09/2021 Encounter Details Date Type Department Care Team (Late st Contact Info) Description 10/09/2021 [facility] [address] [address] Mariel Galindo APRN CNP Refill Request Social History Tobacco Use Types Packs/Day Years Used Date Smoking Tobacco: Never Smokeless Tobacco: Never Alcohol Use Standard Drinks/Week Comments Not Currently 0 (1 standard drink = 0.6 oz pur e alcohol) wine occasionally PHQ-2 Answer Date Recorded PHQ-2 Total Score (Adult) - Positive if 3 or more points; Administer PHQ-9 if positive 2 07/09/2021 [place] Depression Scale Answer Date Recorded [place] Depression Score 16 12/04/2020 Last EPDS Self Harm Result Not on file 12/04 Comments No Sex and Gender Information Value Date Recorded Sex Assigned at Female 04/07/2021 2:32 PM CDT Legal Sex Female 10:33 AM DIRECTOR OF CORPORATE MARKETING Gender Identity Female 04/07/2021 2:32 PM CDT Sexual Orientation Straight 04/07/2021 2: 32 PM CDT documented as of this encounter Miscellaneous Notes * Telephone Encounter - Mariel Pedersen RN - 10/09/2021 8:54 AM CST Routing refill request to provider for review/approval because: Drug not on the G refill protocol Mariel Pedersen RN on 10/09/2021 at 8:54 AM CTOR OF CORPORATE MARKETING documented in this encounter Plan of Treatment Not on file documented as of this encounter Visit Diagnoses Diagnosis ADHD (attention deficit hyperactivity disorder), combined type Attention deficit disorder with hyperactivity documented in this encounter Additional Health Concerns Assessment Noted Time PHQ-9 Depression Total Score: 12 021 7:02 AM CDT documented as of this encounter Care Teams Gun Number Relationship Specialty Start Date End Date Mariel Galindo APRN SITE PROMOTION AGENT PCP - General Nurse Practitioner 08/13/14 06/08/22 No Ref-Primary, Physician PCP - General 06/09/22 06/02/23 Mariel Galindo APRN CNP Assigned PCP 10/21/14 04/10/22 Samia Silverman MD [address] [address] Assigned OBGYN Provider 08/04/20 Mateo, Mariel Stout APRN SITE PROMOTION AGENT Assigned PCP 06/27/22 01/08/23 Nadege Jones APRN SITE PROMOTION AGENT [address] [place], [place] [phone] Assigned PCP 01/09/23 01/15/23 Mateo, Mariel Stout APRN SITE PROMOTION AGENT Assigned PCP 01/16/23 04/23/23 Nadege Jones APRN SITE PROMOTION AGENT [address] [place], [place] [phone] Assigned PCP 04/24/23 10/06/23 Mateo, Mariel Stout APRN SITE PROMOTION AGENT Assigned PCP 10/07/23 11/04/23 Mateo, Mariel Stout APRN SITE PROMOTION AGENT Assigned PCP 11/05/23 12/03/23 Mateo, Mariel Stout APRN SITE PROMOTION AGENT Assigned PCP 12/04/23 01/03/24 Deja Mendez PA-C [address] [place] [address] Assigned PCP 01/04/24 documented as of this encounter
--- OUTSIDE RECORDS SUMMARY | 2024-08-06 15:17 | XMS_ITS | Encounter Summary ---
Author Organization [facility] Address [address] [place] [address] Care Team Providers Care Hospitality Intern Name Role Phone Mateo, Mariel Stout CYANIDE FURNACE OPERATOR LICENSED LAND SURVEYOR Primary Care Provi adam Unavailable Mateo, Mariel Stout CYANIDE FURNACE OPERATOR LICENSED LAND SURVEYOR Unavailable Un available Samia Silverman MD Unavailable [phone] No Ref-Primary, Physician Primary Care Provider Mateo, Mariel Stout CYANIDE FURNACE OPERATOR LICENSED LAND SURVEYOR Unavailable Un available Nadege Jones APRN LICENSED LAND SURVEYOR Unavailable Mateo, Mariel Argelia CYANIDE FURNACE OPERATOR LICENSED LAND SURVEYOR Unavailable Un available Nadege Jones APRN LICENSED LAND SURVEYOR Unavailable Mateo, Mariel Stout APRN LICENSED LAND SURVEYOR Unavailable Un available Mateo, Mariel Stout APRN LICENSED LAND SURVEYOR Unavailable Un available Mateo, Mariel Stout APRN LICENSED LAND SURVEYOR Unavailable Un available Deja Mendez PA-C Unavailable Encounter Details Date Type Department Care Team (Late st Contact Info) Description 09/16/2020 [facility] Advice [address] [address] Sheyla Cespedes, FAMILY PHYSICIAN Social History Tobacco Use Types Packs/Day Years [...] Sex Female 10:33 AM DIRECTOR OF CORPORATE COMMUNICATIONS Gender Identity Female 04/07/2021 2:32 PM CDT Sexual Orientation Straight 04/07/2021 2 :32 PM CDT documented as of this encounter Plan of Treatment Not on file documented as of this encounter Visit Diagnoses Not on filedocumented in this encounter Additional Health Concerns Assessment Noted Time PHQ-9 Depression Total Score: 10 020 2:27 PM CDT documented as of this encounter Care Teams Hospitality Intern Relationship Specialty Start Date End Date Mariel Galindo APRN CNP PCP - General Nurse Practitioner 08/13/14 06/08/22 No Ref-Primary, Physician PCP - General 06/09/22 06/02/23 Mariel Galindo APRN CNP Assigned PCP 10/21/14 04/10/22 Samia Silverman MD [address] [address] Assigned OBGYN Provider 08/04/20 Mariel Galindo APRN LICENSED LAND SURVEYOR Assigned PCP 06/27/22 01/08/23 Nadege Jones APRN LICENSED LAND SURVEYOR [address] [place] [phone] Assigned PCP 01/09/23 01/15/23 Mariel Galindo APRN LICENSED LAND SURVEYOR Assigned PCP 01/16/23 04/23/23 Nadege Jones APRN LICENSED LAND SURVEYOR [address] [place] [phone] Assigned PCP 04/24/23 10/06/23 MateoMariel meng APRN LICENSED LAND SURVEYOR Assigned PCP 10/07/23 11/04/23 MateoMariel meng APRN LICENSED LAND SURVEYOR Assigned PCP 11/05/23 12/03/23 MateoMariel meng APRN LICENSED LAND SURVEYOR Assigned PCP 12/04/23 01/03/24 Deja Mendez PA-C [address] [place] [phone] Assigned PCP 01/04/24 documented as of this encounter
--- OUTSIDE RECORDS SUMMARY | 2024-08-06 15:17 | XMS_ITS | Encounter Summary ---
Author Organization [facility] Address [address] [place] [address] Care Team Providers Care Director Of Math Name Role Phone Mariel Galindo APRN, CNP Primary Care Provi adam Unavailable Mateo, Mariel Stout APRN COMMUNICATION EQUIPMENT MECHANIC Unavailable Un available Samia Silverman MD Unavailable [phone] No Ref-Primary, Physician Primary Care Provider Mateo, Mariel Stout APRN COMMUNICATION EQUIPMENT MECHANIC Unavailable Un available Nadege Jones APRN COMMUNICATION EQUIPMENT MECHANIC Unavailable Mateo, Mariel Stout APRN COMMUNICATION EQUIPMENT MECHANIC Unavailable Un available Nadege Jones APRN COMMUNICATION EQUIPMENT MECHANIC Unavailable [phone] Mateo, Mariel Stout APRN COMMUNICATION EQUIPMENT MECHANIC Unavailable Un available Mateo, Mariel Stout APRN COMMUNICATION EQUIPMENT MECHANIC Unavailable Un available MateoMariel meng APRN COMMUNICATION EQUIPMENT MECHANIC Unavailable Un available Deja Mendez PA-C Unavailable [phone] Reason for Visit * Reason Onset Date Comments Refill Request 06/06/2021 Encounter Details Date Type Department Care Team (Late st Contact Info) Description 06/06/2021 [facility] [address] [address] Mariel Galindo APRN CNP Refill Request Social History Tobacco Use Types Packs/Day Years Used Date Smoking Tobacco: Never Smokeless Tobacco: Never Alcohol Use Standard Drinks/Week Comments Not Currently 0 (1 standard drink = 0.6 oz pur e alcohol) wine occasionally PHQ-2 Answer Date Recorded PHQ-2 Total Score (Adult) - Positive if 3 or more points; Administer PHQ-9 if positive 0 04/07/2021 [place] Depression Scale Answer Date Recorded [place] Depression Score 16 12/04/2020 Last EPDS Self Harm Result Not on file 12/04 Comments No Sex and Gender Information Value Date Recorded Sex Assigned at Female 04/07/2021 2:32 PM CDT Legal Sex Female 10:33 AM SITE SPECIALIST Gender Identity Female 04/07/2021 2:32 PM CDT [...] of this encounter Care Teams Director Of Math Relationship Specialty Start Date End Date Mariel Galindo APRN COMMUNICATION EQUIPMENT MECHANIC PCP - General Nurse Practitioner 08/13/14 06/08/22 No Ref-Primary, Physician PCP - General 06/09/22 06/02/23 Mariel Galindo APRN COMMUNICATION EQUIPMENT MECHANIC Assigned PCP 10/21/14 04/10/22 Samia Silverman MD [address] [address] Assigned OBGYN Provider 08/04/20 Mateo, Mariel Stout APRN COMMUNICATION EQUIPMENT MECHANIC Assigned PCP 06/27/22 01/08/23 Nadege Jones APRN COMMUNICATION EQUIPMENT MECHANIC [address] [place], [place] [phone] Assigned PCP 01/09/23 01/15/23 Mateo, Mariel Stout APRN COMMUNICATION EQUIPMENT MECHANIC Assigned PCP 01/16/23 04/23/23 Nadege Jones APRN COMMUNICATION EQUIPMENT MECHANIC [address] [place], [place] [phone] Assigned PCP 04/24/23 10/06/23 Mateo, Mariel Stout APRN COMMUNICATION EQUIPMENT MECHANIC Assigned PCP 10/07/23 11/04/23 Mateo, Mariel Stout APRN COMMUNICATION EQUIPMENT MECHANIC Assigned PCP 11/05/23 12/03/23 Mateo, Mariel Stout APRN COMMUNICATION EQUIPMENT MECHANIC Assigned PCP 12/04/23 01/03/24 Deja Mendez PA-C [address] [place] [address] Assigned PCP 01/04/24 documented as of this encounter
--- OUTSIDE RECORDS SUMMARY | 2024-08-06 15:17 | XMS_ITS | Encounter Summary ---
Author Organization [facility] Address [address] [place] [address] Care Team Providers Care Email Producer Name Role Phone Mariel Galindo APRN, CNP Primary Care Provi adam Unavailable Mateo, Mariel Stout APRN SPARE HAND CARDING Unavailable Un available Samia Silverman MD Unavailable [phone] No Ref-Primary, Physician Primary Care Provider Mateo, Mariel Stout APRN SPARE HAND CARDING Unavailable Un available Nadege Jones APRN SPARE HAND CARDING Unavailable Mateo, Mariel Stout APRN SPARE HAND CARDING Unavailable Un available Nadege Jones APRN SPARE HAND CARDING Unavailable Mateo, Mariel Stout APRN SPARE HAND CARDING Unavailable Un available Mateo, Mariel Stout APRN SPARE HAND CARDING Unavailable Un available MateoMariel meng APRN SPARE HAND CARDING Unavailable Un available Deja Mendez PA-C Unavailable [phone] Reason for Visit * Reason Onset Date Comments Refill Request 07/07/2021 Encounter Details Date Type Department Care Team (Late st Contact Info) Description 07/07/[address] [facility] Ur[facility] Care [address] [address] Mariel Galindo APRN CNP Refill Request Social History Tobacco Use Types Packs/Day Years Used Date Smoking Tobacco: Never Smokeless Tobacco: Never Alcohol Use Standard Drinks/Week Comments Not Currently 0 (1 standard drink = 0.6 oz pur e alcohol) wine occasionally PHQ-2 Answer Date Recorded PHQ-2 Total Score (Adult) - Positive if 3 or more points; Administer PHQ-9 if positive 2 07/09/2021 [place] Depression Scale Answer Date Recorded [place] Depression Score 16 12/04/2020 Last EPDS Self Harm Result Not on file 12/04 Comments No Sex and Gender Information Value Date Recorded Sex Assigned at Female 04/07/2021 2:32 PM CDT Legal Sex Female 10:33 AM INSTRUMENT TECHNICIAN Gender Identity Female 04/07/2021 2:32 PM [...] documented as of this encounter Care Teams Email Producer Relationship Specialty Start Date End Date Mariel Galindo APRN SPARE HAND CARDING PCP - General Nurse Practitioner 08/13/14 06/08/22 No Ref-Primary, Physician PCP - General 06/09/22 06/02/23 Mariel Galindo APRN SPARE HAND CARDING Assigned PCP 10/21/14 04/10/22 aSmia Silverman MD [address] [address] Assigned OBGYN Provider 08/04/20 Mariel Galindo APRN SPARE HAND CARDING Assigned PCP 06/27/22 01/08/23 Nadege Jones APRN SPARE HAND CARDING [address] [facility] [place] [address] Assigned PCP 01/09/23 01/15/23 Mateo, Mariel Stout APRN SPARE HAND CARDING Assigned PCP 01/16/23 04/23/23 Nadege Jones APRN SPARE HAND CARDING [address] [place], [place] [address] Assigned PCP 04/24/23 10/06/23 Mateo, Mariel Stout APRN SPARE HAND CARDING Assigned PCP 10/07/23 11/04/23 Mateo, Mariel Stout APRN SPARE HAND CARDING Assigned PCP 11/05/23 12/03/23 Mateo, Mariel Stout APRN SPARE HAND CARDING Assigned PCP 12/04/23 01/03/24 Deja Mendez PA-C [address] [place] [phone] Assigned PCP 01/04/24 documented as of this encounter
--- OUTSIDE RECORDS SUMMARY | 2024-08-06 15:17 | XMS_ITS | Encounter Summary ---
Author Organization [facility] Address [address] [place] [address] Care Team Providers Care Plywood Factory Worker Name Role Phone Mateo, Mariel Stout APRN, CNP Primary Care Provi adam Unavailable Mateo, Mariel Stout APRN POCKET OPERATOR Unavailable Un available Samia Silverman MD Unavailable [phone] No Ref-Primary, Physician Primary Care Provider Mateo, Mariel Stout APRN POCKET OPERATOR Unavailable Un available Nadege Jones APRN POCKET OPERATOR Unavailable Mateo, Mariel Stout APRN POCKET OPERATOR Unavailable Un available Nadege Jones APRN POCKET OPERATOR Unavailable Mateo, Mariel Stout APRN POCKET OPERATOR Unavailable Un available Mateo, Mariel Stout APRN POCKET OPERATOR Unavailable Un available MateoMariel meng APRN POCKET OPERATOR Unavailable Un available Deja Mendez PA-C Unavailable [phone] Reason for Visit * Reason Comments Medication Refill Encounter Details Date Type Department Care Team (Late st Contact Info) Description 02/02/[address] [address] Mariel Galindo APRN CNP Medication Refill Social History Tobacco Use Types Packs/Day Years Used Date Smoking Tobacco: Never Smokeless Tobacco: Never Alcohol Use Standard Drinks/Week Comments Not Currently 0 (1 standard drink = 0.6 oz pur e alcohol) wine occasionally PHQ-2 Answer Date Recorded PHQ-2 Score 3 12/23/2020 [place] Depression Scale Answer Date Recorded [place] Depression Score 16 12/04/2020 Last EPDS Self Harm Result Not on file 12/04 Comments No Sex and Gender Information Value Date Recorded Sex Assigned at Female 04/07/2021 2:32 PM CDT Legal Sex Female 10:33 AM WATCH GUARD GATE Gender Identity Female 04/07/2021 2:32 PM CDT Sexual Orientation Straight 04/07/2021 2: 32 PM CDT documented as of this encounter Miscellaneous Notes * Telephone Encounter - Marcela Benedict RN - 02/04/2021 2:19 PM CDT Routing refill request to provider for review/approval because: Elevated PHQ-9 Marcela Benedict RN [facility] -- Triage Nurse documented in this encounter Plan of Treatment Not on file documented as of this encounter Visit Diagnoses Diagnosis Moderate major depression (H) Major depressive disorder, single episode, moderate documented in this encounter Additional Health Concerns Assessment Noted Time PHQ-9 Depression Total Score: 17 021 1:27 PM CDT documented as of this encounter Care Teams Plywood Factory Worker Relationship Specialty Start Date End Date Mariel Galindo APRN POCKET OPERATOR PCP - General Nurse Practitioner 08/13/14 06/08/22 No Ref-Primary, Physician PCP - General 06/09/22 06/02/23 Mariel Galindo APRN POCKET OPERATOR Assigned PCP 10/21/14 04/10/22 Samia Silverman MD [address] [address] Assigned OBGYN Provider 08/04/20 Mariel Galindo APRN CNP Assigned PCP 06/27/22 01/08/23 Nadege Jones APRN POCKET OPERATOR [address] [place], [place] [phone] Assigned PCP 01/09/23 01/15/23 Mateo, Mariel Stout APRN POCKET OPERATOR Assigned PCP 01/16/23 04/23/23 Nadege Jones APRN POCKET OPERATOR [address] [place], [place] [phone] Assigned PCP 04/24/23 10/06/23 Mateo, Mariel Stout APRN POCKET OPERATOR Assigned PCP 10/07/23 11/04/23 Mateo, Mariel Stout APRN POCKET OPERATOR Assigned PCP 11/05/23 12/03/23 Mateo, Mariel Stout APRN POCKET OPERATOR Assigned PCP 12/04/23 01/03/24 Deja Mendez PA-C [address] [place] [address] Assigned PCP 01/04/24 documented as of this encounter
--- OUTSIDE RECORDS SUMMARY | 2024-08-06 15:17 | XMS_ITS | Encounter Summary ---
Author Organization [facility] Address [address] [place] [address]. [place] [address] Care Team Providers Care Dolphin Trainer Name Role Phone Mateo, Mariel Stout PLUSH FINISHER BOMB SQUAD COMMANDER Primary Care Provi adam Unavailable Mateo, Mariel Stout PLUSH FINISHER BOMB SQUAD COMMANDER Unavailable Un available Samia Silverman MD Unavailable [phone] No Ref-Primary, Physician Primary Care Provider Mateo, Mariel Stout PLUSH FINISHER BOMB SQUAD COMMANDER Unavailable Un available Nadege Jones APRN BOMB SQUAD COMMANDER Unavailable Mateo, Mariel Argelia PLUSH FINISHER BOMB SQUAD COMMANDER Unavailable Un available Nadege Joens APRN BOMB SQUAD COMMANDER Unavailable Mateo, Mariel Stout APRN BOMB SQUAD COMMANDER Unavailable Un available Mateo, Mariel Stout APRN BOMB SQUAD COMMANDER Unavailable Un available Mateo, Mariel Stout APRN BOMB SQUAD COMMANDER Unavailable Un available Deja Mendez PA-C Unavailable [phone] Encounter Details Date Type Department Care Team (Late st Contact Info) Description 09/27/2019 [facility] Medical Advice [address] [place] [address] Mimi Sun Social History Tobacco [...] PM CDT Legal Sex Female 10:33 AM HELMET HAT BRIM CUTTER Gender Identity Female 04/07/2021 2:32 PM CDT Sexual Orientation Straight 04/07/2021 2: 32 PM CDT documented as of this encounter Plan of Treatment Not on file documented as of this encounter Visit Diagnoses Not on filedocumented in this encounter Additional Health Concerns Assessment Noted Time PHQ-9 Depression Total Score: 9 07/28/20 19 8:28 AM HELMET HAT BRIM CUTTER documented as of this encounter Care Teams Dolphin Trainer Relationship Specialty Start Date End Date Mariel Galindo APRN CNP PCP - General Nurse Practitioner 08/13/14 06/08/22 No Ref-Primary, Physician PCP - General 06/09/22 06/02/23 Mariel Galindo APRN BOMB SQUAD COMMANDER Assigned PCP 10/21/14 04/10/22 Samia Silverman MD [address] [address] Assigned OBGYN Provider 08/04/20 Mariel Galindo APRN BOMB SQUAD COMMANDER Assigned PCP 06/27/22 01/08/23 Nadege Jones APRN BOMB SQUAD COMMANDER [address] [place] [phone] Assigned PCP 01/09/23 01/15/23 Mariel Galindo APRN BOMB SQUAD COMMANDER Assigned PCP 01/16/23 04/23/23 Nadege Jones APRN BOMB SQUAD COMMANDER [address] [place] [phone] Assigned PCP 04/24/23 10/06/23 MateoMariel meng APRN BOMB SQUAD COMMANDER Assigned PCP 10/07/23 11/04/23 MateoMariel meng APRN BOMB SQUAD COMMANDER Assigned PCP 11/05/23 12/03/23 MateoMariel meng APRN BOMB SQUAD COMMANDER Assigned PCP 12/04/23 01/03/24 Deja Mendez PA-C [address] [place] [address] Assigned PCP 01/04/24 documented as of this encounter
--- OUTSIDE RECORDS SUMMARY | 2024-08-06 15:17 | XMS_ITS | Encounter Summary ---
Author Organization [facility] Address [address] [place] [address] Care Team Providers Care Therapeutic Specialist Name Role Phone Mateo, Mariel Stout LINUX KERNEL DEVELOPER CAMPUS POLICE OFFICER Primary Care Provi adam Unavailable Mateo, Mariel Stout LINUX KERNEL DEVELOPER CAMPUS POLICE OFFICER Unavailable Un available No Ref-Primary, Physician Primary Care Provider Mateo, Mariel Stout APRN CAMPUS POLICE OFFICER Unavailable Un available Nadege Jones APRN CAMPUS POLICE OFFICER Unavailable Mateo, Mariel Stout APRN CAMPUS POLICE OFFICER Unavailable Un available Nadege Jones APRN CAMPUS POLICE OFFICER Unavailable Mateo, Mariel Stout APRN CAMPUS POLICE OFFICER Unavailable Un available Mateo, Mariel Stout APRN CAMPUS POLICE OFFICER Unavailable Un available Mateo, Mariel Stout APRN CAMPUS POLICE OFFICER Unavailable Un available Deja Mendez PA-C Unavailable [phone] Encounter Details Date Type Department Care Team (Late st Contact Info) Description 02/10/2022 [facility] [address] [place] [phone] Tamra Chavez PA-C [address] [place], [place] [id number] Social History Tobacco Use Types Packs/Day Years Used Date Smoking Tobacco: Never Smokeless Tobacco: Never Alcohol Use Standard Drinks/Week Comments Yes 0 (1 standard drink = 0.6 oz pur e alcohol) wine occasionally PHQ-2 Answer Date Recorded PHQ-2 Score 2 11/21/2021 [place] Depression Scale Answer Date Recorded [place] Depression Score 16 12/04/2020 Last EPDS Self Harm Result Not on file 12/04 Comments No Sex and Gender Information Value Date Recorded Sex Assigned at Female 04/07/2021 2:32 PM CDT Legal Sex Female 10:33 AM INSOLE BUFFER Gender Identity Female 04/07/2021 2:32 PM CDT [...] Depression Total Score: 13 022 7:03 AM INSOLE BUFFER documented as of this encounter Care Teams Therapeutic Specialist Relationship Specialty Start Date End Date [...] Nadege Jones APRN CNP [address] [place] [phone] Assigned PCP 04/24/23 10/06/23 Mateo, Mariel Stout APRN CAMPUS POLICE OFFICER Assigned PCP 10/07/23 11/04/23 Mateo, Mariel Stout APRN CAMPUS POLICE OFFICER Assigned PCP 11/05/23 12/03/23 Mateo, Mariel Stout APRN CAMPUS POLICE OFFICER Assigned PCP 12/04/23 01/03/24 Deja Mendez PA-C [address] [place] [address] Assigned PCP 01/04/24 documented as of this encounter
--- OUTSIDE RECORDS SUMMARY | 2024-08-06 15:17 | XMS_ITS | Encounter Summary ---
Author Organization [facility] Address [address] [place] [address] Care Team Providers Care Home Health Speech Therapist Name Role Phone No Ref-Primary, Physician Primary Care Provider MateoMariel INTELLIGENCE SENIOR SERGEANT EXPERIMENTAL PREFLIGHT MECHANIC Unavailable Un available Nadege Jones APRN EXPERIMENTAL PREFLIGHT MECHANIC Unavailable [phone] MateoMariel INTELLIGENCE SENIOR SERGEANT EXPERIMENTAL PREFLIGHT MECHANIC Unavailable Un available MateoMariel APRN EXPERIMENTAL PREFLIGHT MECHANIC Unavailable Un available MateoMariel APRN EXPERIMENTAL PREFLIGHT MECHANIC Unavailable Un available Deja Mendez PA-C Unavailable [phone] Encounter Details Date Type Department Care Team (Late st Contact Info) Description 01/25/2023 MyC Medical Advice [facility] [address] [place] [address] Kimberly Montanez, [facility] Social History Tobacco Use Types Packs/Day Years Used Date Smoking Tobacco: Never Smokeless Tobacco: Never Alcohol Use Standard Drinks/Week Comments Yes 0 (1 standard drink = 0.6 oz pur e alcohol) wine occasionally PHQ-2 Answer Date Recorded PHQ-2 Total Score (Adult) - Positive if 3 or more points; Administer PHQ-9 if positive 2 11/24/2022 [place] Depression Scale Answer Date Recorded [place] Depression Score 16 12/04/2020 Last EPDS Self Harm Result Not on file 12/04 Comments No Sex and Gender Information Value Date Recorded Sex Assigned at Female 04/07/2021 2:32 PM CDT Legal Sex Female 10:33 AM CARD DECORATOR Gender Identity Female 04/07/2021 2:32 PM CDT Sexual Orientation Straight 04/07/2021 2: 32 PM CDT documented as of this encounter Plan of Treatment Not on file documented as of this encounter Visit Diagnoses Not on filedocumented in this encounter Additional Health Concerns Assessment Noted Time PHQ-9 Depression Total Score: 12 023 3:55 PM CDT documented as of this encounter Care Teams Home Health Speech Therapist Relationship Specialty Start Date End Date No Ref-Primary, Physician PCP - General 06/09/22 06/02/23 Mariel Galindo APRN EXPERIMENTAL PREFLIGHT MECHANIC Assigned PCP 01/16/23 04/23/23 Nadege Jones APRN EXPERIMENTAL PREFLIGHT MECHANIC [address] [place] [phone] Assigned PCP 04/24/23 10/06/23 Mariel Galindo APRN EXPERIMENTAL PREFLIGHT MECHANIC Assigned PCP 10/07/23 11/04/23 Mariel Galindo APRN EXPERIMENTAL PREFLIGHT MECHANIC Assigned PCP 11/05/23 12/03/23 Mariel Galindo APRN EXPERIMENTAL PREFLIGHT MECHANIC Assigned PCP 12/04/23 01/03/24 Deja Mendez PA-C [address] [place] [phone] Assigned PCP 01/04/24 documented as of this encounter
--- OUTSIDE RECORDS SUMMARY | 2024-08-06 15:17 | XMS_ITS | Encounter Summary ---
Author Organization [facility] Address [address] [place] [address] Care Team Providers Care Production Operations Engineer Name Role Phone Mateo, Mariel Stout APRN, CNP Primary Care Provi adam Unavailable Mateo, Mariel Stout APRN INSTALLATION TECHNICIAN Unavailable Un available Samia Silverman MD Unavailable [phone] No Ref-Primary, Physician Primary Care Provider Mateo, Mareil Stout APRN INSTALLATION TECHNICIAN Unavailable Un available Nadege Jones APRN INSTALLATION TECHNICIAN Unavailable Mateo, Mariel Stout APRN INSTALLATION TECHNICIAN Unavailable Un available Nadege Jones APRN INSTALLATION TECHNICIAN Unavailable Mateo, Mariel Stout APRN INSTALLATION TECHNICIAN Unavailable Un available Mateo, Mariel Stout APRN INSTALLATION TECHNICIAN Unavailable Un available MateoMariel meng APRN INSTALLATION TECHNICIAN Unavailable Un available Deja Mendez PA-C Unavailable [phone] Reason for Visit * Reason Onset Date Comments Refill Request 03/06/2021 Encounter Details Date Type Department Care Team (Late st Contact Info) Description 03/06/2021 [facility]C [facility]ill [facility] [address] [address] Mariel Galindo APRN CNP Refill Request Social History Tobacco Use Types Packs/Day Years Used Date Smoking Tobacco: Never Smokeless Tobacco: Never Alcohol Use Standard Drinks/Week Comments Not Currently 0 (1 standard drink = 0.6 oz pur e alcohol) wine occasionally PHQ-2 Answer Date Recorded PHQ-2 Total Score (Adult) - Positive if 3 or more points; Administer PHQ-9 if positive 0 03/06/2021 [place] Depression Scale Answer Date Recorded [place] Depression Score 16 12/04/2020 Last EPDS Self Harm Result Not on file 12/04 Comments No Sex and Gender Information Value Date Recorded Sex Assigned at Female 04/07/2021 2:32 PM CDT Legal Sex Female 10:33 AM DESIZING MACHINE OPERATOR Gender Identity Female 04/07/2021 2:32 [...] documented as of this encounter Care Teams Production Operations Engineer Relationship Specialty Start Date End Date Mariel Galindo APRN INSTALLATION TECHNICIAN PCP - General Nurse Practitioner 08/13/14 06/08/22 No Ref-Primary, Physician PCP - General 06/09/22 06/02/23 Mateo, Mariel Stout APRN INSTALLATION TECHNICIAN Assigned PCP 10/21/14 04/10/22 Samia Silverman MD [address] [place] [address] Assigned OBGYN Provider 08/04/20 Mateo, Mariel Stout APRN INSTALLATION TECHNICIAN Assigned PCP 06/27/22 01/08/23 Nadege Jones APRN INSTALLATION TECHNICIAN [address] [place] [phone] Assigned PCP 01/09/23 01/15/23 Mateo, Mariel Stout APRN INSTALLATION TECHNICIAN Assigned PCP 01/16/23 04/23/23 Nadege Jones APRN INSTALLATION TECHNICIAN [address] [place] [phone] Assigned PCP 04/24/23 10/06/23 Mateo, Mariel Stout APRN INSTALLATION TECHNICIAN Assigned PCP 10/07/23 11/04/23 Mateo, Mariel Stout APRN INSTALLATION TECHNICIAN Assigned PCP 11/05/23 12/03/23 Mateo, Mariel Stout APRN INSTALLATION TECHNICIAN Assigned PCP 12/04/23 01/03/24 Deja Mendez PA-C [address] [place] [address] Assigned PCP 01/04/24 documented as of this encounter
--- OUTSIDE RECORDS SUMMARY | 2024-08-06 15:17 | XMS_ITS | Encounter Summary ---
Author Organization [facility] Address [address] [place] [address] Care Team Providers Care Harness Inspector Name Role Phone No Ref-Primary, Physician Primary Care Provider MateoMariel POTATO CHIP SORTER BURIAL AGENT Unavailable Un available Nadege Jones APRN BURIAL AGENT Unavailable [phone] MateoMariel POTATO CHIP SORTER BURIAL AGENT Unavailable Un available MateoMariel APRN BURIAL AGENT Unavailable Un available MateoMariel APRN BURIAL AGENT Unavailable Un available Deja Mendez PA-C Unavailable [phone] Encounter Details Date Type Department Care Team (Late st Contact Info) Description 04/16/2023 MyC Medical Advice [facility] [id number] [place] [phone] Kimberly Montanez, [facility] [...] declined 04/20/2023 How often do you attend mormon or pentecostal serv ices? Never 04/20/2023 Do you belong to any clubs o r organizations such as mormon groups, unions, fraternal or athletic groups, or [...] Answer Date Recorded PHQ-2 Score 4 04/20/2023 [facility] of Occupat ional Health - Occupational Stress [...] place to sleep or slept in a snf (including now)? No 04/20/2023 [place] Depression Scale Answer Date Recorded [place] Depression Score 16 12/04/2020 Last EPDS Self Harm Result Not on file 12/04 Comments No Sex and Gender Information Value Date Recorded Sex Assigned at Female 04/07/2021 2:32 PM CDT Legal Sex Female 10:33 AM CONCRETE MIXING PLANT LABORER Gender Identity Female 04/07/2021 2:32 PM CDT Sexual Orientation Straight 04/07/2021 2: 32 PM CDT documented as of this encounter Plan of Treatment Not on file documented as of this encounter Visit Diagnoses Not on filedocumented in this encounter Additional Health Concerns Assessment Noted Time PHQ-9 Depression Total Score: 12 023 3:55 PM CDT documented as of this encounter Care Teams Harness Inspector Relationship Specialty Start Date End Date No Ref-Primary, Physician PCP - General 06/09/22 06/02/23 Mariel Galindo APRN BURIAL AGENT Assigned PCP 01/16/23 04/23/23 Nadege Jones APRN BURIAL AGENT [address] [place] [address] Assigned PCP 04/24/23 10/06/23 Mariel Galindo APRN BURIAL AGENT Assigned PCP 10/07/23 11/04/23 Mariel Galindo APRN BURIAL AGENT Assigned PCP 11/05/23 12/03/23 Mariel Galindo APRN BURIAL AGENT Assigned PCP 12/04/23 01/03/24 Deja Mendez PA-C [address] [place] [phone] Assigned PCP 01/04/24 documented as of this encounter
--- OUTSIDE RECORDS SUMMARY | 2024-08-06 15:17 | XMS_ITS | Referral Summary ---
Author Organization [facility] Address [address] [place] [address] Care Team Providers Care Warehouse Associate Name Role Phone Deja Mendez PA-C Unavailable [phone] Allergies No known active allergies Medications [...] 07/28/19 NIL, +HR HPV, not 16/18. Plan [place] 06/11/20 Patient is lost to pap tracking [...] Neuropsych evaluation for ADD completed: UNKNOWN Last [facility] website verification: 06/28/19 https://[email or web address]/ Assessment & Plan (05/10/2017 6:36 PM CDT): [...] Neuropsych evaluation for ADD completed: No Last [facility] website verification: done on 05.10.17 [email or web address] CARDIOVASCULAR SCREENING; LDL GOAL LESS THAN 160 [...] declined 04/20/2023 How often do you attend yazidism or methodist serv ices? Never 04/20/2023 Do you belong to any clubs o r organizations such as yazidism groups, unions, fraternal or athletic groups, or [...] Answer Date Recorded PHQ-2 Score 3 12/14/2023 [facility] [place] of Occupat ional Health - Occupational Stress [...] in a mcc (including now)? No 04/20/2023 [place] Depression Scale Answer Date Recorded [place] Depression Score 16 12/04/2020 Last EPDS Self Harm Result Not on file 12/04 Adolescent Education Answer Date Record ed Getting School Help Needed Not on file 06/04 Comments No Sex and Gender Information Value Date Recorded Sex Assigned at Female 04/07/2021 2:32 PM CDT Legal Sex Female 10:33 AM SCHOOL OFFICE MANAGER Gender Identity Female 04/07/2021 2:32 PM [...] TYPES DNA CERVICAL Routine 11/21/2021 8:09 AM SCHOOL OFFICE MANAGER Cervical cancer screening GYNECOLOGIC CYTOLOGY Routine 11/21/2021 8:09 AM SCHOOL OFFICE MANAGER Cervical cancer screening HIV ANTIGEN ANTIBODY [...] infants, and children. us Nadege Jones APRN LOG MANAGER LAB - BLOOD ORDERABLES F inal Result [facility] SPECIAL[facility] CORE/PROT/ENDO [facility] Specialty Core/Prot/Endo [address] [facility] [address] [facility], [address] [place] [address], [facility] [phone] * Basic metabolic panel (Ca, Cl, CO2, [...] 3:45 PM CDT us Nadege Jones APRN LOG MANAGER LAB - BLOOD ORDERABLES F inal Result [facility] LAB[facility] [place] [facility] Lab 500 [facility], [address] [place] [address], [facility] [phone] * TSH WITH FREE T4 REFLEX (11/24/2022 11:06 AM CDT) Pathologist [facility] TSH 1.31 0.30 - 4.20 uIU/mL 11/24/2022 5:51 PM CDT [facility] Blood BLOOD SPECIMEN / Unknown Venipuncture / Unknown 11/24/2022 11:06 AM CDT 11/24/2022 11:10 AM CDT us Nadege Jones APRN LOG MANAGER LAB - BLOOD ORDERABLES F inal Result [facility] [place] Core Lab 500 [facility] [address] Building, [address] [place] [address], [facility] [phone] * Pap Screen with HPV - recommended age 30 - 65 years (11/21/2021 8:09 AM SCHOOL OFFICE MANAGER) Interpretation Negative for Intraepithelial Lesion or [...] component of this testing was completed at [facility] 11/25/2021 9:24 AM CDT SPECIALTY LABS Brushing CERVIX UTERI STRUCTURE / Unknown 11/21/2021 8:09 AM SCHOOL OFFICE MANAGER 11/21/2021 8:24 AM SCHOOL OFFICE MANAGER Yazmin Galindo RESOURCE ANALYST LOG MANAGER YAYA - CHRISTIAN Al al Result SPECIALTY LABS Specialty Lab 500 [facility] J Building, [address] [place] [address], [facility] [phone] * HPV High Risk Types DNA Cervical (11/21/2021 8:09 AM SCHOOL OFFICE MANAGER) Other HR HPV Negative Negative 11/26/2021 2:10 PM CDT [facility] DIAGNOSTICS HPV16 DNA Negative Negative 11/26/2021 2:10 PM CDT [facility] HPV18 DNA Negative Negative 11/26/2021 2:10 PM CDT [facility] DIAGNOSTICS FINAL DIAGNOSIS This patient's sample is negative for HPV DNA. This test was developed and its performance characteristics determined by the [facility]. It has not [...] followup is recommended. 11/26/2021 2:10 PM CDT [facility] Brushing CERVIX UTERI STRUCTURE / Unknown Non-blood Collection / Unknown 11/21/2021 8:09 AM SCHOOL OFFICE MANAGER 11/25/2021 3:59 PM CDT Yazmin Galindo APRN LOG MANAGER LAB - BLOOD ORDERAB LES Final Result [facility] [address] [facility] [address] Building, [address] [place] [address], [facility] [phone] * HIV Antigen Antibody Combo (05/20/2016) HIV Antigen Antibody Combo Negative Blood specimen (specimen) us Patient Reported LAB - BLOOD ORDERABLES Final Re sult from Last 3 Months or Most Recently Relevant to Health Maintenance Care Teams Warehouse Associate Relationship Specialty Start Date End Date Deja Mendez PA-C [address] [place] [phone] Assigned PCP 01/04/24
--- OUTSIDE RECORDS SUMMARY | 2024-08-06 15:17 | XMS_ITS | Encounter Summary ---
Author Organization [facility] Address [address] [place] [address] Care Team Providers Care Business Management Professor Name Role Phone Mateo, Mariel Stout OFFICE SWEEPER TIMBER WATCHMAN Primary Care Provi adam Unavailable Mateo, Mariel Stout OFFICE SWEEPER TIMBER WATCHMAN Unavailable Un available Samia Silverman MD Unavailable [phone] No Ref-Primary, Physician Primary Care Provider Mateo, Mariel Stout APRN TIMBER WATCHMAN Unavailable Un available Nadege Jones APRN TIMBER WATCHMAN Unavailable [phone] Mateo, Mariel Stout APRN TIMBER WATCHMAN Unavailable Un available Nadege Jones APRN TIMBER WATCHMAN Unavailable Mateo, Mariel Stout APRN TIMBER WATCHMAN Unavailable Un available Mateo, Mariel Stout APRN TIMBER WATCHMAN Unavailable Un available MateoMariel APRN TIMBER WATCHMAN Unavailable Un available Deja Mendez PA-C Unavailable [phone] Encounter Details Date Type Department Care [...] PM CDT Legal Sex Female 10:33 AM MOCK UP MAKER Gender Identity Female 04/07/2021 2:32 PM CDT [...] as of this encounter Care Teams Business Management Professor Relationship Specialty Start Date End Date Mariel Galindo APRN CNP PCP - General Nurse Practitioner 08/13/14 06/08/22 No Ref-Primary, Physician PCP - General 06/09/22 06/02/23 Mariel Galindo APRN TIMBER WATCHMAN Assigned PCP 10/21/14 04/10/22 Samia Silverman MD [address] [place] [address] Assigned OBGYN Provider 08/04/20 Mariel Galindo APRN TIMBER WATCHMAN Assigned PCP 06/27/22 01/08/23 Nadege Jones APRN TIMBER WATCHMAN [address] [place] [address] Assigned PCP 01/09/23 01/15/23 Mariel Galindo APRN TIMBER WATCHMAN Assigned PCP 01/16/23 04/23/23 Nadege Jones APRN TIMBER WATCHMAN [address] [place] [address] Assigned PCP 04/24/23 10/06/23 Mariel Galindo APRN TIMBER WATCHMAN Assigned PCP 10/07/23 11/04/23 MateoMariel meng APRN TIMBER WATCHMAN Assigned PCP 11/05/23 12/03/23 Mariel Galindo APRN TIMBER WATCHMAN Assigned PCP 12/04/23 01/03/24 Deja Mendez PA-C [address] [place] [phone] Assigned PCP 01/04/24 documented as of this encounter
--- OUTSIDE RECORDS SUMMARY | 2024-08-06 15:17 | XMS_ITS | Encounter Summary ---
Author Organization [facility] Address [address] [place] [address] Care Team Providers Care Belting Inspector Name Role Phone No Ref-Primary, Physician Primary Care Provider Mateo, Mariel Stout APRN FARM MACHINE TENDER Unavailable Un available Nadege Jones APRN FARM MACHINE TENDER Unavailable [phone] Mateo, Mariel Stout APRN FARM MACHINE TENDER Unavailable Un available Mateo, Mariel Stout APRN FARM MACHINE TENDER Unavailable Un available Mateo, Mariel Stout APRN FARM MACHINE TENDER Unavailable Un available Deja Mendez PA-C Unavailable [phone] Reason for Visit * Reason Onset Date Comments Refill Request 02/18/2023 Encounter Details Date Type Department Care Team (Late st Contact Info) Description 02/18/2023 MyC Refill [facility] [address] [place] [address] Tamra Chavez PA-C [address] [place] [address] Refill Request Social History Tobacco Use Types Packs/Day Years Used Date Smoking Tobacco: Never Smokeless Tobacco: Never Alcohol Use Standard Drinks/Week Comments Yes 0 (1 standard drink = 0.6 oz pur e alcohol) wine occasionally PHQ-2 Answer Date Recorded PHQ-2 Total Score (Adult) - Positive if 3 or more points; Administer PHQ-9 if positive 2 02/18/2023 [place] Depression Scale Answer Date Recorded [place] Depression Score 16 12/04/2020 Last EPDS Self Harm Result Not on file 12/04 Comments No Sex and Gender Information Value Date Recorded Sex Assigned at Female 04/07/2021 2:32 PM CDT Legal Sex Female 10:33 AM SECURITY SYSTEMS ADMINISTRATOR Gender Identity Female 04/07/2021 2:32 PM [...] documented as of this encounter Care Teams Belting Inspector Relationship Specialty Start Date End Date No Ref-Primary, Physician PCP - General 06/09/22 06/02/23 Mariel Galindo APRN FARM MACHINE TENDER Assigned PCP 01/16/23 04/23/23 Nadege Jones APRN FARM MACHINE TENDER [address] [place] [phone] Assigned PCP 04/24/23 10/06/23 Mariel Galindo APRN FARM MACHINE TENDER Assigned PCP 10/07/23 11/04/23 Mariel Galindo APRN FARM MACHINE TENDER Assigned PCP 11/05/23 12/03/23 Mariel Galindo APRN FARM MACHINE TENDER Assigned PCP 12/04/23 01/03/24 Deja Mendez PA-C [address] [place] [address] Assigned PCP 01/04/24 documented as of this encounter
--- OUTSIDE RECORDS SUMMARY | 2024-08-06 15:17 | XMS_ITS | Clinical Summary ---
Author Organization [facility] Address [address] [place] [address] Care Team Providers Care Turn Operator Name Role Phone Deja Mendez PA-C Unavailable [phone] Allergies No known active allergies Medications [...] evaluation for ADD completed: UNKNOWN Last [facility] website verification: 06/28/19 [email or web address]/ Assessment & Plan (05/10/2017 6:36 PM CDT): [...] evaluation for ADD completed: No Last [facility] website verification: done on 05.10.17 [email or web address]/ CARDIOVASCULAR SCREENING; LDL GOAL LESS THAN 160 [...] declined 04/20/2023 How often do you attend voodoo or buddhism serv ices? Never 04/20/2023 Do you belong to any clubs o r organizations such as voodoo groups, unions, fraternal or athletic groups, or [...] Answer Date Recorded PHQ-2 Score 3 12/14/2023 [facility] of Occupat ional Health - [...] in a snf (including now)? No 04/20/2023 [place] Depression Scale Answer Date Recorded [place] Depression Score 16 12/04/2020 Last EPDS Self Harm Result Not on file 12/04 Adolescent Education Answer Date Record ed Getting School Help Needed Not on file 06/04 Comments No Sex and Gender Information Value Date Recorded Sex Assigned at Female 04/07/2021 2:32 PM CDT Legal Sex Female 10:33 AM COMPUTER EDUCATION TEACHER Gender Identity Female 04/07/2021 2:32 PM CDT [...] TYPES DNA CERVICAL Routine 11/21/2021 8:09 AM COMPUTER EDUCATION TEACHER Cervical cancer screening GYNECOLOGIC CYTOLOGY Routine 11/21/2021 8:09 AM COMPUTER EDUCATION TEACHER Cervical cancer screening HIV ANTIGEN ANTIBODY COMBO [...] infants, and children. us Nadege Jones WARREN FRONT OFFICE AGENT LAB - BLOOD ORDERABLES F inal Result UM SPECIALTY CORE/PROT/ENDO UM Specialty Core/Prot/Endo [address] [facility] [address] [facility], [address], [place] [address], [facility] [phone] * Basic metabolic panel (Ca, Cl, CO2, Creat, Gluc, K, Na, BUN) (04/20/2023 3:45 PM CDT) Pathologist [facility] Sodium 137 136 - 145 mmol/L [...] 04/20/2023 3:45 PM CDT Nadege Jones APRN FRONT OFFICE AGENT LAB - BLOOD ORDERABLES F inal Result Performing Organization Address City/[facility]/ZIP Co de Phone Number LABORATORY [facility] Core Lab [address] [facility], [address] [address], [facility] [phone] * TSH WITH FREE T4 REFLEX (11/24/2022 11:06 AM CDT) TSH 1.31 0.30 - 4.20 uIU/mL 11/24/2022 5:51 PM CDT [facility] LABORATORY Blood BLOOD SPECIMEN / Unknown Venipuncture / Unknown 11/24/2022 11:06 AM CDT 11/24/2022 11:10 AM CDT Nadege Jones APRN, CNP LAB - BLOOD ORDERABLES F inal Result Performing Organization Address City/[facility] Co de Phone Number LABORATORY [facility] Core Lab [address] [facility], [address] [address], [facility] [phone] * Pap Screen with HPV - recommended age 30 - 65 years (11/21/2021 8:09 AM COMPUTER EDUCATION TEACHER) Interpretation Negative for Intraepithelial Lesion or Malignancy [...] component of this testing was completed at [facility] 11/25/2021 9:24 AM CDT SPECIALTY LABS Brushing CERVIX UTERI STRUCTURE / Unknown 11/21/2021 8:09 AM COMPUTER EDUCATION TEACHER 11/21/2021 8:24 AM COMPUTER EDUCATION TEACHER Yazmin Galindo APRN FRONT OFFICE AGENT LAB - CHRISTIAN Al al Result SPECIALTY LABS Specialty Lab 500 [facility], [address] [place] [address], [facility] [phone] * HPV High Risk Types DNA Cervical (11/21/2021 8:09 AM COMPUTER EDUCATION TEACHER) Other HR HPV Negative Negative 11/26/2021 2:10 [...] Non-blood Collection / Unknown 11/21/2021 8:09 AM COMPUTER EDUCATION TEACHER 11/25/2021 3:59 PM CDT us Yazmin Galindo CAPTAIN AIRLINE PILOT FRONT OFFICE AGENT LAB - BLOOD ORDERAB LES Final Result MOLECULAR DIAGNOSTICS [facility] [address] [facility], [address] [place] [address], [facility] [phone] * HIV Antigen Antibody Combo (05/20/2016) HIV Antigen Antibody Combo Negative Blood specimen (specimen) us Patient Reported LAB - BLOOD ORDERABLES Final Re sult from Last 3 Months or Most Recently Relevant to Health Maintenance Care Teams Turn Operator Relationship Specialty Start Date End Date Deja Mendez PA-C [address] [place] [phone] Assigned PCP 01/04/24
--- OUTSIDE RECORDS SUMMARY | 2024-08-06 15:17 | XMS_ITS | Encounter Summary ---
Author Organization [place] Address [address] [place] [address]. [place] [address] Care Team Providers Care Pneumatic Tube Repairer Name Role Phone No Ref-Primary, Physician Primary Care Provider Mateo, Mariel Stout RECEIVABLE MANAGER FINANCIAL PLANNING ADVISER Unavailable Un available Nadege Jones APRN FINANCIAL PLANNING ADVISER Unavailable Mateo, Mariel Stout RECEIVABLE MANAGER FINANCIAL PLANNING ADVISER Unavailable Un available Mateo, Mariel Stout APRN FINANCIAL PLANNING ADVISER Unavailable Un available Mateo, Mariel Stout APRN FINANCIAL PLANNING ADVISER Unavailable Un available Deja Mendez PA-C Unavailable [phone] Reason for Visit * Reason Onset Date Comments Refill Request 02/18/2023 Encounter Details Date Type Department Care Team (Late st Contact Info) Description 02/18/2023 MyC Refill M [address] [address] Amanda Tolbert PA-C 0258 [facility] [address] [place], [place] [address] Refill Request Social History Tobacco Use Types Packs/Day Years Used Date Smoking Tobacco: Never Smokeless Tobacco: Never Alcohol Use Standard Drinks/Week Comments Yes 0 (1 standard drink = 0.6 oz pur e alcohol) wine occasionally PHQ-2 Answer Date Recorded PHQ-2 Total Score (Adult) - Positive if 3 or more points; Administer PHQ-9 if positive 2 02/18/2023 [place] Depression Scale Answer Date Recorded [place] Depression Score 16 12/04/2020 Last EPDS Self Harm Result Not on file 12/04 Comments No Sex and Gender Information Value Date Recorded Sex Assigned at Female 04/07/2021 2:32 PM CDT Legal Sex 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 Gender Identity Female 04/07/2021 2:32 PM CDT [...] documented as of this encounter Care Teams Pneumatic Tube Repairer Relationship Specialty Start Date End Date No Ref-Primary, Physician PCP - General 06/09/22 06/02/23 Mariel Galindo APRN FINANCIAL PLANNING ADVISER Assigned PCP 01/16/23 04/23/23 Nadege Jones APRN FINANCIAL PLANNING ADVISER [address] [place] [address] Assigned PCP 04/24/23 10/06/23 Mariel Galindo APRN FINANCIAL PLANNING ADVISER Assigned PCP 10/07/23 11/04/23 Mariel Galindo APRN FINANCIAL PLANNING ADVISER Assigned PCP 11/05/23 12/03/23 Mariel Galindo APRN FINANCIAL PLANNING ADVISER Assigned PCP 12/04/23 01/03/24 Deja Mendez PA-C [address] [place] [address] Assigned PCP 01/04/24 documented as of this encounter
--- OUTSIDE RECORDS SUMMARY | 2024-08-06 15:18 | XMS_ITS | Encounter Summary ---
Author Organization [facility] Address [address] [place] [address] Care Team Providers Care Livestock Farmworker Name Role Phone Mateo, Mariel Stout APRN, CNP Primary Care Provi adam Unavailable Mateo, Mariel Stout APRN BARREL PLANER Unavailable Un available Mateo, Mariel Stout APRN BARREL PLANER Unavailable Un available Samia Silverman MD Unavailable [phone] No Ref-Primary, Physician Primary Care Provider Mateo, Mariel Stout APRN BARREL PLANER Unavailable Un available Nadege Jones APRN BARREL PLANER Unavailable [phone] Mateo, Mariel Stout APRN BARREL PLANER Unavailable Un available Nadege Jones APRN BARREL PLANER Unavailable Mateo, Mariel Stout APRN BARREL PLANER Unavailable Un available Mateo, Mariel Sotut APRN BARREL PLANER Unavailable Un available Mateo, Mariel Stout APRN BARREL PLANER Unavailable Un available Deja Mendez PA-C Unavailable [phone] Reason for Visit * Reason Comments Medication Refill FLUoxetine (PROZAC) 20 MG capsule Encounter Details Date Type Department Care Team (Late st Contact Info) Description 03/25/[address] [address] Mariel Galindo APRN CNP Medication [...] CDT Legal Sex Female 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 Gender Identity Female 04/07/2021 2:32 PM CDT [...] # refills: 1 Last Office Visit with [facility] primary care provider: 10/23/2016, Mateo Last PHQ-9 [...] documented as of this encounter Care Teams Livestock Farmworker Relationship Specialty Start Date End Date Mariel Galindo APRN CNP PCP - General Nurse Practitioner 08/13/14 06/08/22 Mariel Galindo APRN BARREL PLANER PCP - Assigned PCP 10/21/14 11/15/18 No Ref-Primary, Physician PCP - General 06/09/22 06/02/23 Mariel Galindo APRN CNP Assigned PCP 10/21/14 04/10/22 Samia Silverman MD [address] [place] [id number] Assigned OBGYN Provider 08/04/20 Mariel Galindo APRN BARREL PLANER Assigned PCP 06/27/22 01/08/23 Nadege Jones APRN CNP [address] [facility] [address] Assigned PCP 01/09/23 01/15/23 Mariel Galindo APRN BARREL PLANER Assigned PCP 01/16/23 04/23/23 Nadege Jones APRN BARREL PLANER [address] [place] [address] Assigned PCP 04/24/23 10/06/23 Mariel Galindo APRN CNP Assigned PCP 10/07/23 11/04/23 Mariel Galindo APRN BARREL PLANER Assigned PCP 11/05/23 12/03/23 Mariel Galindo, WARREN BARREL PLANER Assigned PCP 12/04/23 01/03/24 Deja Mendez PA-C [address] [place] [address] Assigned PCP 01/04/24 documented as of this encounter
--- OUTSIDE RECORDS SUMMARY | 2024-08-06 15:18 | XMS_ITS | Encounter Summary ---
Author Organization [place] Address [address] [place] [address] Care Team Providers Care Financial Planner Name Role Phone Mateo, Mariel Stout APRN FABRICATION AND LAYOUT CRAFTSMAN Primary Care Provi adam Unavailable Mateo, Mariel Stout APRN FABRICATION AND LAYOUT CRAFTSMAN Unavailable Un available Samia Silverman MD Unavailable [phone] No Ref-Primary, Physician Primary Care Provider Mateo, Mariel Stout APRN FABRICATION AND LAYOUT CRAFTSMAN Unavailable Un available Nadege Jones APRN FABRICATION AND LAYOUT CRAFTSMAN Unavailable Mateo, Mariel Stout APRN FABRICATION AND LAYOUT CRAFTSMAN Unavailable Un available Nadege Jones APRN FABRICATION AND LAYOUT CRAFTSMAN Unavailable Mateo, Mariel Stout APRN FABRICATION AND LAYOUT CRAFTSMAN Unavailable Un available Mateo, Mariel Stout APRN FABRICATION AND LAYOUT CRAFTSMAN Unavailable Un available Mateo, Mariel Stout APRN FABRICATION AND LAYOUT CRAFTSMAN Unavailable Un available Deja Mendez PA-C Unavailable [phone] Reason for Visit * Reason Onset Date Comments Refill Request 06/20/2019 Earnest Encounter Details Date Type Department Care Team (Late st Contact Info) Description 06/20/2019 [facility] [address] [address] Mariel Galindo APRN CNP Refill Request (Earnest) [...] PM CDT Legal Sex Female 10:33 AM BULB WEEDER Gender Identity Female 04/07/2021 2:32 PM CDT [...] review/approval because: Drug not on the [facility] refill protocol EMERGENCY DETAIL DRIVER: .31. Annual Controlled substance agreement: 416 Annual [...] SHOULD BE DELETED.) Last Office Visit with [facility] primary care provider: 10/24/2018-Mariel Galindo [...] consultation, please call . Analysis performed by [facility], [facility] [place] [address] , No results found for: COMDAT, No results found for: THC13, PCP13, COC13, MAMP13, OPI13, AMP13, BZO13, TCA13, MTD13, BAR13, OXY13, PPX13, BUP13 Processing: Send Electronically to pharmacy [email or web address] EMERGENCY DETAIL DRIVER checked in past 3 months? No, route to RN documented in this encounter Plan of Treatment Not on file documented as of this encounter Visit Diagnoses Diagnosis ADHD (attention deficit hyperactivity disorder), combined type Attention deficit disorder with hyperactivity documented in this encounter Additional Health Concerns Assessment Noted Time PHQ-9 Depression Total Score: 13 019 7:06 AM BULB WEEDER documented as of this encounter Care Teams Financial Planner Relationship Specialty Start Date End Date Mariel Galindo APRN FABRICATION AND LAYOUT CRAFTSMAN PCP - General Nurse Practitioner 08/13/14 06/08/22 No Ref-Primary, Physician PCP - General 06/09/22 06/02/23 Mariel Galindo APRN FABRICATION AND LAYOUT CRAFTSMAN Assigned PCP 10/21/14 04/10/22 Samia Silverman MD [address] [place] [id number] Assigned OBGYN Provider 08/04/20 Mateo, Mariel Stout APRN FABRICATION AND LAYOUT CRAFTSMAN Assigned PCP 06/27/22 01/08/23 Nadege Jones APRN FABRICATION AND LAYOUT CRAFTSMAN [address] [place] [id number] Assigned PCP 01/09/23 01/15/23 Mateo, Mariel Stout APRN FABRICATION AND LAYOUT CRAFTSMAN Assigned PCP 01/16/23 04/23/23 Nadege Jones APRN FABRICATION AND LAYOUT CRAFTSMAN [address] [place] [id number] Assigned PCP 04/24/23 10/06/23 Mateo, Mariel Stout APRN FABRICATION AND LAYOUT CRAFTSMAN Assigned PCP 10/07/23 11/04/23 Mateo, Mariel Stout APRN FABRICATION AND LAYOUT CRAFTSMAN Assigned PCP 11/05/23 12/03/23 Mateo, Mariel Stout APRN FABRICATION AND LAYOUT CRAFTSMAN Assigned PCP 12/04/23 01/03/24 Deja Mendez PA-C [address] [place] [address] Assigned PCP 01/04/24 documented as of this encounter
--- OUTSIDE RECORDS SUMMARY | 2024-08-06 15:18 | XMS_ITS | Encounter Summary ---
Author Organization [place] Address [address] [place] [address] Care Team Providers Care Practical Nurse Name Role Phone Mateo, Mariel Stout APRN, CNP Primary Care Provi adam Unavailable Mateo, Mariel Stout APRN AWARD CLERK Unavailable Un available Samia Silverman MD Unavailable [phone] No Ref-Primary, Physician Primary Care Provider Mateo, Mariel Stout APRN AWARD CLERK Unavailable Un available Nadege Jones APRN AWARD CLERK Unavailable [phone] Mateo, Mariel Stout APRN AWARD CLERK Unavailable Un available Nadege Jones APRN AWARD CLERK Unavailable Mateo, Mariel Stout APRN AWARD CLERK Unavailable Un available Mateo, Mariel Stout APRN AWARD CLERK Unavailable Un available MateoMariel meng APRN AWARD CLERK Unavailable Un available Deja Mendez PA-C Unavailable [phone] Reason for Visit * Reason Onset Date Comments Refill Request 09/14/2019 Encounter Details Date Type Department Care Team (Late st Contact Info) Description 09/14/2019 [facility] [address] [address] Mariel Galindo APRN CNP Refill [...] PM CDT Legal 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 Gender Identity Female 04/07/2021 2:32 PM [...] Total Score: 9 07/28/20 19 8:28 AM OIL WELL PERFORATOR OPERATOR documented as of this encounter Care Teams Practical Nurse Relationship Specialty Start Date End Date Mariel Galindo APRN CNP PCP - General Nurse Practitioner 08/13/14 06/08/22 No Ref-Primary, Physician PCP - General 06/09/22 06/02/23 Mariel Galindo APRN CNP Assigned PCP 10/21/14 04/10/22 Samia Silverman MD [address] [place] [address] Assigned OBGYN Provider 08/04/20 Mariel Galindo APRN AWARD CLERK Assigned PCP 06/27/22 01/08/23 Nadege Jones APRN AWARD CLERK [address] [facility] [place] [address] Assigned PCP 01/09/23 01/15/23 Mariel Galindo APRN AWARD CLERK Assigned PCP 01/16/23 04/23/23 Nadege Jones APRN AWARD CLERK [address] [place] [address] Assigned PCP 04/24/23 10/06/23 MateoMariel meng APRN AWARD CLERK Assigned PCP 10/07/23 11/04/23 Mateo, Mariel Stout APRN AWARD CLERK Assigned PCP 11/05/23 12/03/23 Mateo, Mariel Stout APRN AWARD CLERK Assigned PCP 12/04/23 01/03/24 Deja Mendez PA-C [address] [place] [address] Assigned PCP 01/04/24 documented as of this encounter
--- OUTSIDE RECORDS SUMMARY | 2024-08-06 15:18 | XMS_ITS | Data Portability ---
Author Organization [facility] WEB APPLICATIONS ADMINISTRATOR, [id number] Address [address] [place] [address] Assessment No assessment recorded. Plan of Treatment Reminders Order Date Submit Date Provider Last Modified By Organization Details Last Modified Time Details Appointments None recorded. Lab hemoglobin (Hb), fingerstick , blood 2020 021 eamon [email or web address] _[place] , [address], [address], [place], [address], 17:16:48 unlisted lab - group B strep by PCR (OB patients) 2020 [facility], [address] [place] [address], [address], 12:42:00 Referral None recorded. Procedures None recorded. Surgeries None recorded. Imaging US, obstetric, biophysical profile 2020 021 [email or web address] [email or web address] le_[place], [address], [address], [place], [address], 18:52:27 US, obstetric, biophysical profile 2020 021 [place] [email or web address] [facility], [address], [address], [place], [address], 14:23:32 Medication Orders None recorded. Patient TargetsNo targets recorded. Patient InstructionsNo instructions recorded. Reason for Referral None Reported. Results Created Date Observation Date Name Description Value Unit Range Abnormal Flag Note LastModifiedBy Organization Detail LastModifiedTime 11/25/2020 hemog lobdheeraj (Hb), srinivasa rstic k, blood fingerstick hemoglobin 9.5 g/dL 12.0-1 5.0 Not Available [id number] [facility] [address], [place], [address], 11/25/2020 16:56:31 11/26/1911/25/2020 strep tococ cus group B DNA group B strep by PCR No Group B Strept ococcu s detect ed by PCR. no group B strept ococcu s detect ed by PCR. Not Available [facility] [address] [place], [address], 11/27/2020 12:42:00 11/04/19 21 US, obste tric, follo w-up No observ ation record ed. [email or web address] Bessie [address], [place], [address], 11/04/2020 15:03:03 11/27/19 21 US, obste tric, bioph ysica l profi le No observ ation record ed. [email or web address] [address], [place], [address], 12/02/2020 10:38:41 12/04/19 21 US, obste tric, bioph ysica l profi le No observ ation record ed. [email or web address] [address], [place], [address], 12/04/2020 10:55:17 Result Notes None recorded. Problems Name Problem SNOMED Code Status Onset Date Resolution Date Notes Provider Name and Address Organization Details Recorded Time Pregnanc y 38087076 Completed 201912/26/2020 Anupama tristan, [place] [facility] WEB APPLICATIONS ADMINISTRATOR 1 12:47:15 Advanced maternal age 551676469 Completed level II Anupama rios null, [place] [facility] WEB APPLICATIONS ADMINISTRATOR 1 12:47:10 Depressi on screenin g Completed 2020 PHQ9: 16, GAD7: 19 @ 28 week visit, disc, declines meds. Desires to restart postpartu m nAupama rios null, [place] [facility] WEB APPLICATIONS ADMINISTRATOR 12:47:10 Problem Notes None recorded. Procedures Surgical History Date Name Laterality Status Provider Name and Address Organization Details Recorded Time 0 Date of Last Pap Smear completed Inés Leach [facility] WEB APPLICATIONS ADMINISTRATOR 2020 17:26:50 colposcopy of cervix completed Not Available [facility] 04/22/2020 01:04:46 Imaging Results Imaging Date Name Status LastModified by Organiz ation Details LastModified Time 11/04/2020 US, obstetric, follow-up completed [email or web address] [address], [place], [address], 11/04/2020 15:03:03 11/26/2020 US, obstetric, biophysical profile completed [email or web address] [address], [place], [address], 12/02/2020 10:38:41 12/03/2020 US, obstetric, biophysical profile completed [email or web address] [address], [place], [address], 12/04/2020 10:55:17 Procedure Notes None recorded. Medical [...] Updated DateTime 11/25/2020 165.1 cm 32.8 kg/m2 89331.13 3838 g 112 mm[Hg] 72 mm[Hg] Deya Adams (TERMED) [facility] WEB APPLICATIONS ADMINISTRATOR 16:56:19 Date Recorded Body height Body mass index (BMI) Systolic blood pressure Diastolic blood pressure Provider Name and Address Organization Details Last Updated DateTime 11/26/2020 165.1 cm 33.3 kg/m2 102 mm[Hg] 70 mm[Hg] Yen Seth [facility] WEB APPLICATIONS ADMINISTRATOR 11/26/2020 14:38:15 Date Recorded Body weight Provider Name an d Address Organization Details Last Updated DateTime 11/26/2020 45635.772936 [place] [address] [facility],[address], [place], [address], [facility] WEB APPLICATIONS ADMINISTRATOR 11/28/2020 10:14:32 Date Recorded Body weight Systolic blood pressure Diastolic blood pressure Provider Name and Address Organization Details Last Updated DateTime 12/03/2020 56311.474 g 110 mm[Hg] 70 mm[Hg] Norma Cabrera (TERMED) [facility] WEB APPLICATIONS ADMINISTRATOR 12/03/2020 12:25:27 Social History Question Answer Notes [...] Domestic Violence No Denies All Domestic Violence Information not available 04/22/2020 Marital Status [place] [phone] Information not available 04/22/2020 Sex: Unknown Functional Status None recorded. Mental Status None recorded. Family History Nothing Reported. Medical History Condition Response Neurology- Memory Loss/Dementia N Neurology- Stroke/TIA N Rheumatology- Fibromyalgia/Chronic Pain N Dermatology-Acne N Cancer- Genetic Screening N Endocrinology- Vitamin Deficiency N Endocrinology-Other N Urology-Other N Cardiology- Atrial fib/atrial flutter N ID- Usual childhood diseases- Chicken Po x N Nephrology-Renal Disease N Rheumatology- Autoimmune Disease N Neurology- Seizures/Epilepsy N Cardiology- Heart [...] Vaccine Type Date Status Provider Name a me Address Organization Details Recorded Time Tdap 05/13/2015 completed Not Available [facility] 01:10:22 Tdap 07/23/2016 completed Not Available [facility] 01:10:23 Tdap 10/22/2020 completed MERVIN AUSTIN, [address] [facility],[address], [place], [address], [facility] WEB APPLICATIONS ADMINISTRATOR 10/22/2020 18:06:11 Past Encounters Encounter ID Performer Location Encounter Start Date Encounter Closed Date Diagnosis/Indication Diagnosis SNOMED-CT Code Diagnosis ICD10 Code [id number] MERVIN AUSTIN DO [id number] ,[facility] [address] [facility] [address] 05/14/2020 14:44:49 05/14/2020 15:30:23 Past history of miscarriage 505716163 Z87.59 [id number] MERVIN AUSTIN DO [id number] DA[address] ,[address] [place] [address] 05/14/2020 15:08:40 05/15/2020 08:36:36 Gynecologic examination 49481004 Z01.419 61646060 Z33.1 Hypothyroidism 85059853 E03.9 Advanced m aternal age 807792319 O09.140 [id number] MERVIN AUSTIN, DO [address] [facility] ,[address] [place] [address] 06/24/2020 17:13:25 06/25/2020 08:00:24 [id number] MERVIN AUSTIN, DO [address] [facility] ,[address] [place] [address] 08/20/2020 17:13:53 08/20/2020 17:41:37 Hypothyroidism in 268950218 E03.9 [id number] ALIDA NOONAN, [address] [facility] ,[address] [place] [address] 09/23/2020 12:18:42 09/23/2020 12:47:09 Gestation period, 28 weeks 83219362 Z3A.28 screening 2437 [address]65 Z36.89 [id number] MERVIN AUSTIN, DO [address] [facility] ,[address] [place] [address] 10/08/2020 16:55:23 10/09/2020 09:02:08 [id number] MERVIN AUSTIN, DO [address] ,[address] [place] [address] 10/22/2020 16:57:54 10/22/2020 17:50:54 Routine care 310792836 Z34.83 [id number] JOSE SEPULVEDA MD [address] [facility] ,[address] [place] [address] 11/04/2020 10:32:08 11/04/2020 11:18:33 Multigravida of advanced maternal age 027741076 O09.129 [id number] MERVIN AUSTIN, DO [id number] [address] ,[address] [place] [address] 11/04/2020 10:52:39 11/04/2020 11:52:35 [id number] MERVIN AUSTIN, DO [id number] [address] ,[address] [place] [address] 11/25/2020 16:46:50 11/25/2020 17:15:57 93336698 Z33.1 [id number] OCTAVIO SAGASTUME MD [address] ,[address] [place] [address] 11/26/2020 12:00:12 11/26/2020 12:30:01 movement activity - finding 168317814 Z34.03 [id number] MERVIN AUSTIN, DO [id number] [address] ,[address] [place] [address] 11/26/2020 14:35:25 11/26/2020 15:39:41 [id number] SAMMI RIOS MD [id number] [address] ,[address] [place] [address] 12/03/2020 12:06:38 12/03/2020 12:53:29 Reduced movement 618791320 O36.8199 [id number] MERVIN AUSTIN, DO [address] ,[address] [place] [address] 12/03/2020 12:18:59 12/03/2020 13:26:24 Health Concerns Section Related Observation LastModified by Organization Detai ls LastModified Time None Recorded Concern Status LastModified by Organization Details LastModified Time None Recorded Advance Directives Directive None Recorded Payers Encounter Date Sequence Insurance Name Policy Number Policy Doss Covered Member ID Doss Member ID Guarantor Name 11/25/2020 1 [facility] [id number] Mayito Maravillanos [id number] Madeline Maravillanos 11/26/2020 1 [facility] [id number] Mayito Maravillanos [id number] Madeline Maravillanos 11/26/2020 1 [facility] [id number] Mayito Maravillanos [id number] Madeline Hebertellanos 12/03/2020 1 [facility] [id number] Mayito Maravillanos [id number] Madeline Maravillanos 12/03/2020 1 [facility] [id number] Mayito Maravillanos [id number] Madeline Maravillanos OBGyn Episode Ob Episode Information Episode Created Date Number of Fetuses Patient Bloodtype Patient rh Status Prepregnancy Weight lbs Domestic Partner Domestic Partner Phone Father Name Passenger Service Representative Status 05/14/20 20 1 A Positive CLOSED Fetus Data First Name Last Name Admitted to NICU Weight (g) Sex Living Outcome Pediatric Complications Fetus ID Race Codes Race Delivery Type 3288.54 2 M true Full Term 6501 Problems Problem Notes Problem Name Start Date End Date Resolution Snomed Code Not e Advanced maternal age 136214212 level II Depression screening 09/23/2020 60543719 6 PHQ9: 16, GAD7: 19 @ 28 [...] Cervic Effacement Cervic Station 34 cm none Azael Medina neg 0cm 10% -3 Type Weight [...] Cervic Effacement Cervic Station 36 cm none Lonedell Medina neg Type Weight in lbs BP [...] Disease false Other Infection History false Thalassemia (Paraguayan, Wallisian, Mediterranean, Or Background): MCV < 80 false [...] TB Or Exposed To TB false Thalassemia (Paraguayan, Wallisian, Mediterranean, Or Background): MCV < 80 false Sickle Cell Disease Or Trait () false Intellectual Disability/Autism false Patient Or Partner Has History Of Genital Herpes false History of HIV false Harry-Sachs (eg, Gnosticism, Cajun, Kyrgyz-American) f alse Neural Tube Defect (Meningomyelocele, Spina Bifi da, Or Anencephaly) false Hemophilia Or Other Blood Disorders false [place] Ch[place] false Congenital Heart Defect false Other [...] 1 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 Mervin Austin DO [facility] Discharge Information Feeding Method Contraceptive Method Maternal HG B and HCT Levels Ob Episode Information Episode Created Date Number of Fetuses Patient Bloodtype Patient rh Status Prepregnancy Weight lbs Domestic Partner Domestic Partner Phone Father Name Passenger Service Representative Status 05/14/20 20 1 CLOSED Fetus Data [...] Domestic Partner Domestic Partner Phone Father Name Passenger Service Representative Status 05/14/20 20 1 CLOSED Fetus Data [...] Domestic Partner Domestic Partner Phone Father Name Passenger Service Representative Status 05/14/20 20 1 CLOSED Fetus Data [...] Date Ultra Sound Latest Weeks Gestation Final Prahsant Confirmed By Final Prashant Confirmed Date Final [...] Domestic Partner Domestic Partner Phone Father Name Passenger Service Representative Status 05/14/20 20 1 CLOSED Fetus Data [...]
--- OUTSIDE RECORDS SUMMARY | 2024-08-06 15:18 | XMS_ITS | Encounter Summary ---
Author Organization [facility] Address [address] [place] [address] Care Team Providers Care Metal Spray Operator Name Role Phone MateoMariel meng APRN EVAPORATOR OPERATOR Primary Care Provi adam Unavailable Mateo, Mariel Stout APRN EVAPORATOR OPERATOR Unavailable Un available Mateo, Mariel Stout APRN EVAPORATOR OPERATOR Unavailable Un available Samia Silverman MD Unavailable [phone] No Ref-Primary, Physician Primary Care Provider Mateo, Mariel Stout APRN EVAPORATOR OPERATOR Unavailable Un available Nadege Jones APRN EVAPORATOR OPERATOR Unavailable [phone] Mateo, Mariel Stout APRN EVAPORATOR OPERATOR Unavailable Un available Nadege Jones APRN EVAPORATOR OPERATOR Unavailable Mateo, Mariel Stout APRN EVAPORATOR OPERATOR Unavailable Un available Mateo, Mariel Stout APRN EVAPORATOR OPERATOR Unavailable Un available Mateo, Mariel Stout APRN EVAPORATOR OPERATOR Unavailable Un available Deja Mendez PA-C Unavailable [phone] Encounter Details Date Type Department Care [...] PM CDT Legal Sex Female 10:33 AM BENDER MACHINE OPERATOR Gender Identity Female 04/07/2021 2:32 PM CDT Sexual Orientation Straight 04/07/2021 2: 32 PM CDT documented as of this encounter Plan of Treatment Not on file documented as of this encounter Visit Diagnoses Not on filedocumented in this encounter Additional Health Concerns Assessment Noted Time PHQ-9 Depression Total Score: 12 017 7:21 AM BENDER MACHINE OPERATOR documented as of this encounter Care Teams Metal Spray Operator Relationship Specialty Start Date End Date Mariel Galindo APRN CNP PCP - General Nurse Practitioner 08/13/14 06/08/22 Mariel Galindo APRN CNP PCP - Assigned PCP 10/21/14 11/15/18 No Ref-Primary, Physician PCP - General 06/09/22 06/02/23 Mariel Galindo APRN CNP Assigned PCP 10/21/14 04/10/22 Samia Silverman MD [address] [address] Assigned OBGYN Provider 08/04/20 Mariel Galindo APRN CNP Assigned PCP 06/27/22 01/08/23 Nadege Jones APRN EVAPORATOR OPERATOR [address] [place] [phone] Assigned PCP 01/09/23 01/15/23 Mariel Galindo APRN EVAPORATOR OPERATOR Assigned PCP 01/16/23 04/23/23 Nadege Jones APRN CNP [address] [place] [phone] Assigned PCP 04/24/23 10/06/23 MateoMariel meng APRN EVAPORATOR OPERATOR Assigned PCP 10/07/23 11/04/23 MateoMariel meng APRN EVAPORATOR OPERATOR Assigned PCP 11/05/23 12/03/23 Mariel Galindo APRN EVAPORATOR OPERATOR Assigned PCP 12/04/23 01/03/24 Deja Mendez PA-C [address] [place] [address] Assigned PCP 01/04/24 documented as of this encounter
== END 2024-08-04 10:46 | disposition home or self-care (01) ==
LOC: NFLDREF 08-06 15:15
PROVIDERS: Visit Provider Midwife
DX: Z34.92 Encounter for supervision of normal pregnancy, unspecified, second trimester (principal); Z3A.27 27 weeks gestation of pregnancy
CPT/HCPCS: 86592

== ENCOUNTER 2024-08-04 11:22 | Outpatient (CLI) | payer OTHER, SELFPAY ==
--- NOTE | 2024-08-04 11:15 | CRLHL7_ITS ---
For Patients: As a result of the Century Cures Act, medical imaging exams and procedure reports are released immediately into your electronic medical record. You may view this report before your referring provider. If you have questions, please contact your health care provider. INDICATION: Third trimester scan, evaluate growth. COMPARISON: 07/05/2024 TECHNIQUE: Real time ridley scale imaging of the fetus was performed. FINDINGS: Sonographic imaging demonstrates a single living intrauterine gestation. Fetus demonstrates a regular cardiac rate of 150 beats per minute. Fetus has a vertex position. The placenta lies posteriorly. Amniotic fluid volume appears normal and there is a single deepest vertical pocket: 7.6 cm. The estimated weight is 1038gm which lies at the 16th %. On the prior OB ultrasound exam dated 07/05/2024 the estimated weight was at the 13th%. BPD 31st percentile. HC 12th percentile. AC 32nd percentile. FL is 7th percentile. The HC/AC ratio measures 1.09 range (1.04-1.22). IMPRESSION: Sonographic gestational age 27 weeks 2 days and sonographic due date of 11/01/2024. Good correlation with dates. Normal interval growth. Estimated weight 16th percentile. Abdominal circumference 32nd percentile. Dictated by Heber Call MD @ 08/04/2024 12:54:07 PM (Electronically Signed)
--- OUTSIDE RECORDS SUMMARY | 2024-08-04 11:26 | XMS_ITS | Clinical Summary ---
Author Organization [facility] Address [address] [place] [address] Care Team Providers Care Souvenir Assembler Name Role Phone Deja Mendez PA-C Unavailable [phone] Allergies No known active allergies Medications [...] 07/28/19 NIL, +HR HPV, not 16/18. Plan [place] 06/11/20 Patient is lost to pap tracking [...] Neuropsych evaluation for ADD completed: UNKNOWN Last [facility] website verification: 06/28/19 [email or web address]/ Assessment & Plan (05/10/2017 6:36 PM CDT): [...] Neuropsych evaluation for ADD completed: No Last [facility] website verification: done on 05.10.17 [email or web address]/ CARDIOVASCULAR SCREENING; LDL GOAL LESS THAN 160 [...] declined 04/20/2023 How often do you attend pentecostalism or judaism serv ices? Never 04/20/2023 Do you belong to any clubs o r organizations such as pentecostalism groups, unions, fraternal or athletic groups, or [...] Answer Date Recorded PHQ-2 Score 3 12/14/2023 [facility]at ional [facility] - [...] in a assisted (including now)? 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 Gender Identity Female 04/07/2021 2:32 PM CDT Sexual Orientation Straight 04/07/2021 2: 32 PM CDT Last Filed Vital Signs Vital Sign Reading Time Taken Comments Blood Pressure 115/80 04/20/2023 3:02 PM CDT Pulse 103 04/20/2023 3:02 PM CDT Temperature 36.7 C (98 F) 04/20/2023 3:02 PM CDT Respiratory Rate 18 [...] 3-dose series) 2004 HPV FOLLOW-UP 11/21/2022 11/21/2021, 09/2019, 05/14/2020, Additional history exists PAP FOLLOW-UP 11/21/2022 11/21/2021, 090 09/2019, 05/14/2020, Additional history exists TSH W/FREE T4 REFLEX 11/25/2023 11/24/2022, 10/16/2021, 07/28/2019, Additional history exists YEARLY PREVENTIVE VISIT 04/20/2024 04/20/20 23, 11/21/2021, 03/15/2018 COVID-19 Vaccine ( season) 2024 INFLUENZA VACCINE (#1) 2024 07/28/2019, 2017 PHQ-9 06/14/2024 12/14/2023, 080 04/2023, 01/25/2023, Additional history exists ANNUAL REVIEW [...] TYPES DNA CERVICAL Routine 11/21/2021 8:09 AM STEAM TANK OPERATOR Cervical cancer screening GYNECOLOGIC CYTOLOGY Routine 11/21/2021 8:09 AM STEAM TANK OPERATOR Cervical cancer screening HIV ANTIGEN ANTIBODY [...] been established for newborns, infants, and children. us Nadege Jones WARREN CLIENT SERVICES ADMINISTRATOR LAB - BLOOD ORDERABLES F inal Result UM SPECIALTY CORE/PROT/ENDO UM Specialty Core/Prot/Endo [address] [facility] [address] [facility], [address] [address], [facility] [phone] * Basic metabolic panel (Ca, Cl, CO2, [...] 04/20/2023 3:45 PM CDT Nadege Jones APRN CLIENT SERVICES ADMINISTRATOR LAB - BLOOD ORDERABLES F inal Result Performing Organization Address City/[facility]/ZIP Co de Phone Number LABORATORY [facility] Core Lab [address] [facility], [address] [address], [facility] [phone] * TSH WITH FREE T4 REFLEX (11/24/2022 11:06 AM CDT) TSH 1.31 0.30 - 4.20 uIU/mL 11/24/2022 5:51 PM CDT UU LABORATORY Blood BLOOD SPECIMEN / Unknown Venipuncture / Unknown 11/24/2022 11:06 AM CDT 11/24/2022 11:10 AM CDT Nadege Jones APRN, CNP LAB - BLOOD ORDERABLES F inal Result Performing Organization Address City/[facility] Co de Phone Number LABORATORY [facility] Core Lab [address] [facility], [address] [address], [facility] [phone] * Pap Screen with HPV - recommended age 30 - 65 years (11/21/2021 8:09 AM STEAM TANK OPERATOR) Interpretation Negative for Intraepithelial Lesion or [...] component of this testing was completed at [facility] 11/25/2021 9:24 AM CDT SPECIALTY LABS Brushing CERVIX UTERI STRUCTURE / Unknown 11/21/2021 8:09 AM STEAM TANK OPERATOR 11/21/2021 8:24 AM STEAM TANK OPERATOR Yazmin Galindo APRN CLIENT SERVICES ADMINISTRATOR LAB - CHRISTIAN Al al Result SPECIALTY LABS Specialty Lab 500 [facility], [address] [place] [address], [facility] [phone] * HPV High Risk Types DNA Cervical (11/21/2021 8:09 AM STEAM TANK OPERATOR) Other HR HPV Negative Negative 11/26/2021 2:10 PM CDT [facility] DI[facility]NOSTICS HPV16 DNA Negative Negative 11/26/2021 2:10 PM CDT [facility] HPV18 DNA Negative Negative 11/26/2021 2:10 PM CDT [facility] FINAL DIAGNOSIS This patient's sample is negative for HPV DNA. This test was developed and its performance characteristics determined by the [facility], Molecular Diagnostics Laboratory. It has not been [...] Non-blood Collection / Unknown 11/21/2021 8:09 AM STEAM TANK OPERATOR 11/25/2021 3:59 PM CDT us Yazmin Galindo HOT MIX OPERATOR CLIENT SERVICES ADMINISTRATOR LAB - BLOOD ORDERAB LES Final Result MOLECULAR DIAGNOSTICS UM Molecular Diagnostics [address] [facility], [address] [place] [phone], [facility] [phone] * HIV Antigen Antibody Combo (05/20/2016) HIV Antigen Antibody Combo Negative Blood specimen (specimen) us Patient Reported LAB - BLOOD ORDERABLES Final Re sult from Last 3 Months or Most Recently Relevant to Health Maintenance Care Teams Souvenir Assembler Relationship Specialty Start Date End Date Deja Mendez PA-C [address] [place] [phone] Assigned PCP 01/04/24
--- OUTSIDE RECORDS SUMMARY | 2024-08-04 11:26 | XMS_ITS | Encounter Summary ---
Author Organization [facility] Address [address] [place] [address]. [place] [address] Care Team Providers Care Medical Receptionist Medical Assistant Name Role Phone No Ref-Primary, Physician Primary Care Provider Mateo, Mariel Stout SUPERVISOR SCREEN PRINTING KNUCKLER Unavailable Un available Nadege Jones APRN KNUCKLER Unavailable Mateo, Mariel Stout SUPERVISOR SCREEN PRINTING KNUCKLER Unavailable Un available Mateo, Mariel Stout APRN KNUCKLER Unavailable Un available Mateo, Mariel Stout APRN KNUCKLER Unavailable Un available Deja Mendez PA-C Unavailable [phone] Reason for Visit * Reason Onset Date Comments Refill Request 02/18/2023 Encounter Details Date Type Department Care Team (Late st Contact Info) Description 02/18/2023 MyC Refill M [address] [address] Amanda Tolbert PA-C [address] [facility] [address] [place], [place] [address] Refill Request Social History Tobacco Use Types Packs/Day Years Used Date Smoking Tobacco: Never Smokeless Tobacco: Never Alcohol Use Standard Drinks/Week Comments Yes 0 (1 standard drink = 0.6 oz pur e alcohol) wine occasionally PHQ-2 Answer Date Recorded PHQ-2 Total Score (Adult) - Positive if 3 or more points; Administer PHQ-9 if positive 2 02/18/2023 [place] Depression Scale Answer Date Recorded [place] Depression Score 16 12/04/2020 Last EPDS Self Harm Result Not on file 12/04 Comments No Sex and Gender Information Value Date Recorded Sex Assigned at Female 04/07/2021 2:32 PM CDT Legal Sex Female 10:33 AM GLASS ROBOT 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 Gender Identity Female 04/07/2021 2:32 PM [...] documented as of this encounter Care Teams Medical Receptionist Medical Assistant Relationship Specialty Start Date End Date No Ref-Primary, Physician PCP - General 06/09/22 06/02/23 Mariel Galindo APRN KNUCKLER Assigned PCP 01/16/23 04/23/23 Nadege Jones APRN KNUCKLER [address] [place] [place] [phone] Assigned PCP 04/24/23 10/06/23 Mariel Galindo APRN KNUCKLER Assigned PCP 10/07/23 11/04/23 Mariel Galindo APRN KNUCKLER Assigned PCP 11/05/23 12/03/23 Mariel Galindo APRN KNUCKLER Assigned PCP 12/04/23 01/03/24 Deja Mendez PA-C [address] [place] [phone] Assigned PCP 01/04/24 documented as of this encounter
--- OUTSIDE RECORDS SUMMARY | 2024-08-04 11:26 | XMS_ITS | Encounter Summary ---
Author Organization [facility] Address [address] [place] [address] Care Team Providers Care Black Pickler Name Role Phone No Ref-Primary, Physician Primary Care Provider MateoMariel BEFORE SCHOOL FACILITIES ENGINEERING MANAGER Unavailable Un available Nadege Jones APRN FACILITIES ENGINEERING MANAGER Unavailable [phone] MateoMariel BEFORE SCHOOL FACILITIES ENGINEERING MANAGER Unavailable Un available MateoMariel APRN FACILITIES ENGINEERING MANAGER Unavailable Un available MateoMariel APRN FACILITIES ENGINEERING MANAGER Unavailable Un available Deja Mendez PA-C Unavailable [phone] Encounter Details Date Type Department Care Team (Late st Contact Info) Description 04/16/[address] [facility] [address] [place] [phone] Kimberly Montanez, [facility] Social History Tobacco Use Types Packs/Day Years [...] declined 04/20/2023 How often do you attend baptism or mandaeism serv ices? Never 04/20/2023 Do you belong to any clubs o r organizations such as baptism groups, unions, fraternal or athletic groups, or [...] Answer Date Recorded PHQ-2 Score 4 04/20/2023 [facility] Occupat ional Health - [...] place to sleep or slept in a nursing home (including now)? No 04/20/2023 [place] Depression Scale Answer Date Recorded [place] Depression Score 16 12/04/2020 Last EPDS Self Harm Result Not on file 12/04 Comments No Sex and Gender Information Value Date Recorded Sex Assigned at Female 04/07/2021 2:32 PM CDT Legal Sex Female 10:33 AM ANILINE PRESS WORKER Gender Identity Female 04/07/2021 2:32 PM CDT Sexual Orientation Straight 04/07/2021 2: 32 PM CDT documented as of this encounter Plan of Treatment Not on file documented as of this encounter Visit Diagnoses Not on filedocumented in this encounter Additional Health Concerns Assessment Noted Time PHQ-9 Depression Total Score: 12 023 3:55 PM CDT documented as of this encounter Care Teams Black Pickler Relationship Specialty Start Date End Date No Ref-Primary, Physician PCP - General 06/09/22 06/02/23 Mariel Galindo APRN FACILITIES ENGINEERING MANAGER Assigned PCP 01/16/23 04/23/23 Nadege Jones APRN FACILITIES ENGINEERING MANAGER [address] [place] [address] Assigned PCP 04/24/23 10/06/23 Mariel Galindo APRN FACILITIES ENGINEERING MANAGER Assigned PCP 10/07/23 11/04/23 Mariel Galindo APRN FACILITIES ENGINEERING MANAGER Assigned PCP 11/05/23 12/03/23 Mariel Galindo APRN FACILITIES ENGINEERING MANAGER Assigned PCP 12/04/23 01/03/24 Deja Mendez PA-C [address] [place] [phone] Assigned PCP 01/04/24 documented as of this encounter
--- OUTSIDE RECORDS SUMMARY | 2024-08-04 11:26 | XMS_ITS | Referral Summary ---
Author Organization [facility] Address [address] [place] [address] Care Team Providers Care Internet Media Planner Name Role Phone Deja Mendez PA-C Unavailable [phone] Allergies No known active allergies Medications [...] 07/28/19 NIL, +HR HPV, not 16/18. Plan [place] 06/11/20 Patient is lost to pap tracking [...] Neuropsych evaluation for ADD completed: UNKNOWN Last [facility] website verification: 06/28/19 [email or web address] Assessment & Plan (05/10/2017 6:36 PM CDT): [...] Neuropsych evaluation for ADD completed: No Last [facility] website verification: done on 05.10.17 [email or web address] CARDIOVASCULAR SCREENING; LDL GOAL LESS THAN 160 [...] declined 04/20/2023 How often do you attend advent or orthodox serv ices? Never 04/20/2023 Do you belong to any clubs o r organizations such as advent groups, unions, fraternal or athletic groups, or [...] Answer Date Recorded PHQ-2 Score 3 12/14/2023 [facility] [place] of Occupat ional Health - Occupational Stress [...] place to sleep or slept in a halfway (including now)? No 04/20/2023 [place] Depression Scale Answer Date Recorded [place] Depression Score 16 12/04/2020 Last EPDS Self Harm Result Not on file 12/04 Adolescent Education Answer Date Record ed Getting School Help Needed Not on file 06/04 Comments No Sex and Gender Information Value Date Recorded Sex Assigned at Female 04/07/2021 2:32 PM CDT Legal Sex Female 10:33 AM BUSINESS RELATIONSHIP MANAGER Gender Identity Female 04/07/2021 2:32 PM [...] TYPES DNA CERVICAL Routine 11/21/2021 8:09 AM BUSINESS RELATIONSHIP MANAGER Cervical cancer screening GYNECOLOGIC CYTOLOGY Routine 11/21/2021 8:09 AM BUSINESS RELATIONSHIP MANAGER Cervical cancer screening HIV ANTIGEN ANTIBODY COMBO [...] newborns, infants, and children. us Nadege Jones APRN DOBIE MAN LAB - BLOOD ORDERABLES F inal Result UM SPECIALTY CORE/PROT/ENDO UM Specialty Core/Prot/Endo [address] [facility] [address] [facility], [address] [place] [address], [facility] [phone] * Basic metabolic panel (Ca, Cl, CO2, [...] 3:45 PM CDT us Nadege Jones APRN DOBIE MAN LAB - BLOOD ORDERABLES F inal Result [facility] LABORATORY [facility] [place] Core Lab [address] [facility], [address] [place] [address], [facility] [phone] * TSH WITH FREE T4 REFLEX (11/24/2022 11:06 AM CDT) Pathologist [facility] TSH 1.31 0.30 - 4.20 uIU/mL 11/24/2022 5:51 PM CDT UU LABORATORY Blood BLOOD SPECIMEN / Unknown Venipuncture / Unknown 11/24/2022 11:06 AM CDT 11/24/2022 11:10 AM CDT us Nadege Jones APRN DOBIE MAN LAB - BLOOD ORDERABLES F inal Result [facility] LABORATORY [facility] [place] Core Lab 500 [facility] [address] Building, [address] [place] [address], [facility] [phone] * Pap Screen with HPV - recommended age 30 - 65 years (11/21/2021 8:09 AM BUSINESS RELATIONSHIP MANAGER) Interpretation Negative for Intraepithelial Lesion or Malignancy [...] component of this testing was completed at [facility] 11/25/2021 9:24 AM CDT SPECIALTY LABS Brushing CERVIX UTERI STRUCTURE / Unknown 11/21/2021 8:09 AM BUSINESS RELATIONSHIP MANAGER 11/21/2021 8:24 AM BUSINESS RELATIONSHIP MANAGER Yazmin Galindo SALES HUNTER DOBIE MAN YAYA - CHRISTIAN Al al Result SPECIALTY LABS Specialty Lab 500 [facility] J Building, [address] [place] [phone], [facility] [phone] * HPV High Risk Types DNA Cervical (11/21/2021 8:09 AM BUSINESS RELATIONSHIP MANAGER) Other HR HPV Negative Negative 11/26/2021 2:10 PM CDT MOLECULAR DIAGNOSTICS HPV16 DNA Negative Negative 11/26/2021 2:10 PM CDT [facility]ST[facility] HPV18 DNA Negative Negative 11/26/2021 2:10 PM CDT MO[facility] DIAGNOSTICS FINAL DIAGNOSIS This patient's sample is negative for HPV DNA. This test was developed and its performance characteristics determined by the [facility], Molecular Diagnostics Laboratory. It has not been [...] followup is recommended. 11/26/2021 2:10 PM CDT [facility] Brushing CERVIX UTERI STRUCTURE / Unknown Non-blood Collection / Unknown 11/21/2021 8:09 AM BUSINESS RELATIONSHIP MANAGER 11/25/2021 3:59 PM CDT Yazmin Galindo APRN DOBIE MAN LAB - BLOOD ORDERAB LES Final Result [facility] [address] [facility] [address] Building, [address] [place] [phone], [facility] [phone] * HIV Antigen Antibody Combo (05/20/2016) HIV Antigen Antibody Combo Negative Blood specimen (specimen) us Patient Reported LAB - BLOOD ORDERABLES Final Re sult from Last 3 Months or Most Recently Relevant to Health Maintenance Care Teams Internet Media Planner Relationship Specialty Start Date End Date Deja Mendez PA-C [address] [place] [phone] Assigned PCP 01/04/24
--- OUTSIDE RECORDS SUMMARY | 2024-08-04 11:26 | XMS_ITS | Encounter Summary ---
Author Organization [facility] Address [address] [place] [address] Care Team Providers Care Analytics Manager Name Role Phone Mariel Galindo APRN, CNP Primary Care Provi adam Unavailable Mateo, Mariel Stout APRN SANDWICH MACHINE OPERATOR Unavailable Un available Samia Silverman MD Unavailable [phone] No Ref-Primary, Physician Primary Care Provider Mateo, Mariel Stout APRN SANDWICH MACHINE OPERATOR Unavailable Un available Nadege Jones APRN SANDWICH MACHINE OPERATOR Unavailable Mateo, Mariel Stout APRN SANDWICH MACHINE OPERATOR Unavailable Un available Nadege Jones APRN SANDWICH MACHINE OPERATOR Unavailable [phone] Mateo, Mariel Stout APRN SANDWICH MACHINE OPERATOR Unavailable Un available Mateo, Mariel Stout APRN SANDWICH MACHINE OPERATOR Unavailable Un available MateoMariel meng APRN SANDWICH MACHINE OPERATOR Unavailable Un available Deja Mendez PA-C Unavailable [phone] Reason for Visit * Reason Onset Date Comments Refill Request 06/06/2021 Encounter Details Date Type Department Care Team (Late st Contact Info) Description 06/06/2021 [facility] [address] [address] Mariel Galindo APRN CNP Refill Request Social History Tobacco Use Types Packs/Day Years Used Date Smoking Tobacco: Never Smokeless Tobacco: Never Alcohol Use Standard Drinks/Week Comments Not Currently 0 (1 standard drink = 0.6 oz pur e alcohol) wine occasionally PHQ-2 Answer Date Recorded PHQ-2 Total Score (Adult) - Positive if 3 or more points; Administer PHQ-9 if positive 0 04/07/2021 [place] Depression Scale Answer Date Recorded [place] Depression Score 16 12/04/2020 Last EPDS Self Harm Result Not on file 12/04 Comments No Sex and Gender Information Value Date Recorded Sex Assigned at Female 04/07/2021 2:32 PM CDT Legal Sex Female 10:33 AM 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 OF THE 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 Gender Identity Female 04/07/2021 2:32 PM CDT [...] documented as of this encounter Care Teams Analytics Manager Relationship Specialty Start Date End Date Mariel Galindo APRN SANDWICH MACHINE OPERATOR PCP - General Nurse Practitioner 08/13/14 06/08/22 No Ref-Primary, Physician PCP - General 06/09/22 06/02/23 Mariel Galindo APRN SANDWICH MACHINE OPERATOR Assigned PCP 10/21/14 04/10/22 Samia Silverman MD [address] [address] Assigned OBGYN Provider 08/04/20 Mateo, Mariel Stout APRN SANDWICH MACHINE OPERATOR Assigned PCP 06/27/22 01/08/23 Nadege Jones APRN SANDWICH MACHINE OPERATOR [address] [place], [place] [phone] Assigned PCP 01/09/23 01/15/23 Mateo, Mariel Stout APRN SANDWICH MACHINE OPERATOR Assigned PCP 01/16/23 04/23/23 Nadege Jones APRN SANDWICH MACHINE OPERATOR [address] [place], [place] [phone] Assigned PCP 04/24/23 10/06/23 Mateo, Mariel Stout APRN SANDWICH MACHINE OPERATOR Assigned PCP 10/07/23 11/04/23 Mateo, Mariel Stout APRN SANDWICH MACHINE OPERATOR Assigned PCP 11/05/23 12/03/23 Mateo, Mariel Stout APRN SANDWICH MACHINE OPERATOR Assigned PCP 12/04/23 01/03/24 Deja Mendez PA-C [address] [place] [phone] Assigned PCP 01/04/24 documented as of this encounter
--- OUTSIDE RECORDS SUMMARY | 2024-08-04 11:26 | XMS_ITS | Encounter Summary ---
Author Organization [facility] Address [address] [place] [address] Care Team Providers Care Press Operator Heavy Duty Name Role Phone Mateo, Mariel Stout MUNICIPAL COURT MAGISTRATE LENS ASSISTANT Primary Care Provi adam Unavailable Mateo, Mariel tSout MUNICIP[address] MAGISTRATE LENS ASSISTANT Unavailable Un available No Ref-Primary, Physician Primary Care Provider Mateo, Mariel Stout APRN LENS ASSISTANT Unavailable Un available Nadege Jones APRN LENS ASSISTANT Unavailable Mateo, Mariel Stout APRN LENS ASSISTANT Unavailable Un available Nadege Jones APRN LENS ASSISTANT Unavailable [phone] Mateo, Mariel Stout APRN LENS ASSISTANT Unavailable Un available Mateo, Mariel Stout APRN LENS ASSISTANT Unavailable Un available Mateo, Mariel Stout APRN LENS ASSISTANT Unavailable Un available Deja Mendez PA-C Unavailable [phone] Encounter Details Date Type Department Care Team (Late st Contact Info) Description 02/10/2022 [facility] [address] [place] [phone] Tamra Chavez PA-C [address] [place], [place] [phone] Social History Tobacco Use Types Packs/Day Years Used Date Smoking Tobacco: Never Smokeless Tobacco: Never Alcohol Use Standard Drinks/Week Comments Yes 0 (1 standard drink = 0.6 oz pur e alcohol) wine occasionally PHQ-2 Answer Date Recorded PHQ-2 Score 2 11/21/2021 [place] Depression Scale Answer Date Recorded [place] Depression Score 16 12/04/2020 Last EPDS Self Harm Result Not on file 12/04 Comments No Sex and Gender Information Value Date Recorded Sex Assigned at Female 04/07/2021 2:32 PM CDT Legal Sex Female 10:33 AM ELECTRONICS TECHNICIAN Gender Identity Female 04/07/2021 2:32 PM [...] Depression Total Score: 13 022 7:03 AM ELECTRONICS TECHNICIAN documented as of this encounter Care Teams Press Operator Heavy Duty Relationship Specialty Start Date End Date Mariel Galindo APRN CNP PCP - General Nurse Practitioner 08/13/14 06/08/22 No Ref-Primary, Physician PCP - General 06/09/22 06/02/23 Mariel Galindo APRN CNP Assigned PCP 10/21/14 04/10/22 Mariel Galindo APRN CNP Assigned PCP 06/27/22 01/08/23 Nadege Jones APRN CNP [address] [place] [phone] Assigned PCP 01/09/23 01/15/23 Mariel Galindo APRN CNP Assigned PCP 01/16/23 04/23/23 Nadege Joens APRN CNP [address] [place] [phone] Assigned PCP 04/24/23 10/06/23 Mateo, Mariel Stout APRN LENS ASSISTANT Assigned PCP 10/07/23 11/04/23 Mateo, Mariel Stout APRN LENS ASSISTANT Assigned PCP 11/05/23 12/03/23 Mateo, Mariel Stout APRN LENS ASSISTANT Assigned PCP 12/04/23 01/03/24 Deja Mendez PA-C [address] [facility] [phone] Assigned PCP 01/04/24 documented as of this encounter
--- OUTSIDE RECORDS SUMMARY | 2024-08-04 11:26 | XMS_ITS | Encounter Summary ---
Author Organization [facility] Address [address] [place] [address] Care Team Providers Care Personnel Specialist Name Role Phone Mariel Galindo APRN, CNP Primary Care Provi adam Unavailable Mateo, Mariel Stout APRN DELIVERY ARCHITECT Unavailable Un available Samia Silverman MD Unavailable [phone] No Ref-Primary, Physician Primary Care Provider Mateo, Mariel Stout APRN DELIVERY ARCHITECT Unavailable Un available Nadege Jones APRN DELIVERY ARCHITECT Unavailable Mateo, Mariel Stout APRN DELIVERY ARCHITECT Unavailable Un available Nadege Jones APRN DELIVERY ARCHITECT Unavailable [phone] Mateo, Mariel Stout APRN DELIVERY ARCHITECT Unavailable Un available Mateo, Mariel Stout APRN DELIVERY ARCHITECT Unavailable Un available MateoMariel meng APRN DELIVERY ARCHITECT Unavailable Un available Deja Mendez PA-C Unavailable [phone] Reason for Visit * Reason Onset Date Comments Refill Request 07/07/2021 Encounter Details Date Type Department Care Team (Late st Contact Info) Description 07/07/2021 [facility] [address] [address] Mariel Galindo APRN CNP Refill Request Social History Tobacco Use Types Packs/Day Years Used Date Smoking Tobacco: Never Smokeless Tobacco: Never Alcohol Use Standard Drinks/Week Comments Not Currently 0 (1 standard drink = 0.6 oz pur e alcohol) wine occasionally PHQ-2 Answer Date Recorded PHQ-2 Total Score (Adult) - Positive if 3 or more points; Administer PHQ-9 if positive 2 07/09/2021 [place] Depression Scale Answer Date Recorded [place] Depression Score 16 12/04/2020 Last EPDS Self Harm Result Not on file 12/04 Comments No Sex and Gender Information Value Date Recorded Sex Assigned at Female 04/07/2021 2:32 PM CDT Legal Sex Female 10:33 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 Gender Identity Female 04/07/2021 2:32 PM CDT [...] documented as of this encounter Care Teams Personnel Specialist Relationship Specialty Start Date End Date Mariel Galindo APRN DELIVERY ARCHITECT PCP - General Nurse Practitioner 08/13/14 06/08/22 No Ref-Primary, Physician PCP - General 06/09/22 06/02/23 Mariel Galindo APRN DELIVERY ARCHITECT Assigned PCP 10/21/14 04/10/22 Samia Silverman MD [address] [address] Assigned OBGYN Provider 08/04/20 Mariel Galindo APRN DELIVERY ARCHITECT Assigned PCP 06/27/22 01/08/23 Nadege Jones APRN DELIVERY ARCHITECT [address] [place] [address] Assigned PCP 01/09/23 01/15/23 Mateo, Mariel Stout APRN DELIVERY ARCHITECT Assigned PCP 01/16/23 04/23/23 Nadege Jones APRN DELIVERY ARCHITECT [address] [place], [place] [address] Assigned PCP 04/24/23 10/06/23 Mateo, Mariel Stout APRN DELIVERY ARCHITECT Assigned PCP 10/07/23 11/04/23 Mateo, Mariel Stout APRN DELIVERY ARCHITECT Assigned PCP 11/05/23 12/03/23 Mateo, Mariel Stout APRN DELIVERY ARCHITECT Assigned PCP 12/04/23 01/03/24 Deja Mendez PA-C [address] [place] [address] Assigned PCP 01/04/24 documented as of this encounter
--- OUTSIDE RECORDS SUMMARY | 2024-08-04 11:26 | XMS_ITS | Encounter Summary ---
Author Organization [facility] Address [address] [place] [address] Care Team Providers Care Manager Of Manufacturing Name Role Phone Mariel Galindo APRN, CNP Primary Care Provi adam Unavailable Mateo, Mariel Stout APRN PROBATION AND PAROLE OFFICER Unavailable Un available Samia Silverman MD Unavailable [phone] No Ref-Primary, Physician Primary Care Provider Mateo, Mariel Stout APRN PROBATION AND PAROLE OFFICER Unavailable Un available Nadege Jones APRN PROBATION AND PAROLE OFFICER Unavailable Mateo, Mariel Stout APRN PROBATION AND PAROLE OFFICER Unavailable Un available Nadege Jones APRN PROBATION AND PAROLE OFFICER Unavailable [phone] Mateo, Mariel Stout APRN PROBATION AND PAROLE OFFICER Unavailable Un available Mateo, Mariel Stout APRN PROBATION AND PAROLE OFFICER Unavailable Un available MateoMariel meng APRN PROBATION AND PAROLE OFFICER Unavailable Un available Deja Mendez PA-C Unavailable [phone] Reason for Visit * Reason Onset Date Comments Refill Request 10/09/2021 Encounter Details Date Type Department Care Team (Late st Contact Info) Description 10/09/2021 [facility] [address] [address] Mariel Galindo APRN CNP Refill Request Social History Tobacco Use Types Packs/Day Years Used Date Smoking Tobacco: Never Smokeless Tobacco: Never Alcohol Use Standard Drinks/Week Comments Not Currently 0 (1 standard drink = 0.6 oz pur e alcohol) wine occasionally PHQ-2 Answer Date Recorded PHQ-2 Total Score (Adult) - Positive if 3 or more points; Administer PHQ-9 if positive 2 07/09/2021 [place] Depression Scale Answer Date Recorded [place] Depression Score 16 12/04/2020 Last EPDS Self Harm Result Not on file 12/04 Comments No Sex and Gender Information Value Date Recorded Sex Assigned at Female 04/07/2021 2:32 PM CDT Legal Sex Female 10:33 AM DIGITAL SOLUTIONS ARCHITECT Gender Identity Female 04/07/2021 2:32 PM CDT Sexual Orientation Straight 04/07/2021 2: 32 PM CDT documented as of this encounter Miscellaneous Notes * Telephone Encounter - Mariel Pedersen RN - 10/09/2021 8:54 AM CST Routing refill request to provider for review/approval because: Drug not on the G refill protocol Mariel Pedersen RN on 10/09/2021 at 8:54 AM TAL SOLUTIONS ARCHITECT documented in this encounter Plan of Treatment Not on file documented as of this encounter Visit Diagnoses Diagnosis ADHD (attention deficit hyperactivity disorder), combined type Attention deficit disorder with hyperactivity documented in this encounter Additional Health Concerns Assessment Noted Time PHQ-9 Depression Total Score: 12 021 7:02 AM CDT documented as of this encounter Care Teams Manager Of Manufacturing Relationship Specialty Start Date End Date Mariel Galindo APRN PROBATION AND PAROLE OFFICER PCP - General Nurse Practitioner 08/13/14 06/08/22 No Ref-Primary, Physician PCP - General 06/09/22 06/02/23 Mariel Galindo APRN CNP Assigned PCP 10/21/14 04/10/22 Samia Silverman MD [address] [address] Assigned OBGYN Provider 08/04/20 Mateo, Mariel Stout APRN PROBATION AND PAROLE OFFICER Assigned PCP 06/27/22 01/08/23 Nadege Jones APRN PROBATION AND PAROLE OFFICER [address] [place], [place] [phone] Assigned PCP 01/09/23 01/15/23 Mateo, Mariel Stout APRN PROBATION AND PAROLE OFFICER Assigned PCP 01/16/23 04/23/23 Nadege Jones APRN PROBATION AND PAROLE OFFICER [address] [place], [place] [phone] Assigned PCP 04/24/23 10/06/23 Mateo, Mariel Stout APRN PROBATION AND PAROLE OFFICER Assigned PCP 10/07/23 11/04/23 Mateo, Mariel Stout APRN PROBATION AND PAROLE OFFICER Assigned PCP 11/05/23 12/03/23 Mateo, Mariel Stout APRN PROBATION AND PAROLE OFFICER Assigned PCP 12/04/23 01/03/24 Deja Mendez PA-C [address] [place] [address] Assigned PCP 01/04/24 documented as of this encounter
--- OUTSIDE RECORDS SUMMARY | 2024-08-04 11:26 | XMS_ITS | Encounter Summary ---
Author Organization [facility] Address [address] [place] [address] Care Team Providers Care Wire Drawing Machine Tender Name Role Phone No Ref-Primary, Physician Primary Care Provider MateoMariel VASC TECH TELEPHONE ANSWERER Unavailable Un available Nadege Jones APRN TELEPHONE ANSWERER Unavailable MateoMariel VASC TECH TELEPHONE ANSWERER Unavailable Un available MateoMariel APRN TELEPHONE ANSWERER Unavailable Un available MateoMariel APRN TELEPHONE ANSWERER Unavailable Un available Deja Mendez PA-C Unavailable [phone] Encounter Details Date Type Department Care Team (Late st Contact Info) Description 01/25/2023 MyC Medical Advice [facility] [address] [place] [address] Kimberly Montanez, [facility] Social History Tobacco Use Types Packs/Day Years Used Date Smoking Tobacco: Never Smokeless Tobacco: Never Alcohol Use Standard Drinks/Week Comments Yes 0 (1 standard drink = 0.6 oz pur e alcohol) wine occasionally PHQ-2 Answer Date Recorded PHQ-2 Total Score (Adult) - Positive if 3 or more points; Administer PHQ-9 if positive 2 11/24/2022 [place] Depression Scale Answer Date Recorded [place] Depression Score 16 12/04/2020 Last EPDS Self Harm Result Not on file 12/04 Comments No Sex and Gender Information Value Date Recorded Sex Assigned at Female 04/07/2021 2:32 PM CDT Legal Sex Female 10:33 AM TEACHER OF THE DEAF/HARD OF HEARING Gender Identity Female 04/07/2021 2:32 PM CDT Sexual Orientation Straight 04/07/2021 2: 32 PM CDT documented as of this encounter Plan of Treatment Not on file documented as of this encounter Visit Diagnoses Not on filedocumented in this encounter Additional Health Concerns Assessment Noted Time PHQ-9 Depression Total Score: 12 023 3:55 PM CDT documented as of this encounter Care Teams Wire Drawing Machine Tender Relationship Specialty Start Date End Date No Ref-Primary, Physician PCP - General 06/09/22 06/02/23 Mariel Galindo APRN TELEPHONE ANSWERER Assigned PCP 01/16/23 04/23/23 Nadege Jones APRN TELEPHONE ANSWERER [address] [facility] [place] [phone] Assigned PCP 04/24/23 10/06/23 Mariel Galindo APRN TELEPHONE ANSWERER Assigned PCP 10/07/23 11/04/23 Mariel Galindo APRN TELEPHONE ANSWERER Assigned PCP 11/05/23 12/03/23 Mariel Galindo APRN TELEPHONE ANSWERER Assigned PCP 12/04/23 01/03/24 Deja Mendez PA-C [address] [place] [address] Assigned PCP 01/04/24 documented as of this encounter
--- OUTSIDE RECORDS SUMMARY | 2024-08-04 11:26 | XMS_ITS | Encounter Summary ---
Author Organization [facility] Address [address] [place] [address] Care Team Providers Care Theater Manager Name Role Phone No Ref-Primary, Physician Primary Care Provider Mateo, Mariel Stout APRN VINEYARD WORKER Unavailable Un available Nadege Jones APRN VINEYARD WORKER Unavailable Mateo, Mariel Stout APRN VINEYARD WORKER Unavailable Un available Mateo, Mariel Stout APRN VINEYARD WORKER Unavailable Un available Mateo, Mariel Stout APRN VINEYARD WORKER Unavailable Un available Deja Mendez PA-C Unavailable [phone] Reason for Visit * Reason Onset Date Comments Refill Request 02/18/2023 Encounter Details Date Type Department Care Team (Late st Contact Info) Description 02/18/2023 MyC Refill [facility] [address] [place] [address] Tamra Chavez PA-C [address] [place] [address] Refill Request Social History Tobacco Use Types Packs/Day Years Used Date Smoking Tobacco: Never Smokeless Tobacco: Never Alcohol Use Standard Drinks/Week Comments Yes 0 (1 standard drink = 0.6 oz pur e alcohol) wine occasionally PHQ-2 Answer Date Recorded PHQ-2 Total Score (Adult) - Positive if 3 or more points; Administer PHQ-9 if positive 2 02/18/2023 [place] Depression Scale Answer Date Recorded [place] Depression Score 16 12/04/2020 Last EPDS Self Harm Result Not on file 12/04 Comments No Sex and Gender Information Value Date Recorded Sex Assigned at Female 04/07/2021 2:32 PM CDT Legal Sex Female 10:33 AM APPLICATIONS ENGINEERING MANAGER Gender Identity Female 04/07/2021 2:32 PM [...] documented as of this encounter Care Teams Theater Manager Relationship Specialty Start Date End Date No Ref-Primary, Physician PCP - General 06/09/22 06/02/23 Mariel Galindo APRN VINEYARD WORKER Assigned PCP 01/16/23 04/23/23 Nadege Jones APRN VINEYARD WORKER [address] [place] [phone] Assigned PCP 04/24/23 10/06/23 Mariel Galindo APRN VINEYARD WORKER Assigned PCP 10/07/23 11/04/23 Mariel Galindo APRN VINEYARD WORKER Assigned PCP 11/05/23 12/03/23 Mariel Galindo APRN VINEYARD WORKER Assigned PCP 12/04/23 01/03/24 Deja Mendez PA-C [address] [place] [address] Assigned PCP 01/04/24 documented as of this encounter
--- OUTSIDE RECORDS SUMMARY | 2024-08-04 11:27 | XMS_ITS | Encounter Summary ---
Author Organization [facility] Address [address] [place] [address] Care Team Providers Care Wire Turning Machine Operator Name Role Phone Mateo, Mariel Stout APRN, CNP Primary Care Provi adam Unavailable Mateo, Mariel Stout APRN FASHION JOURNALIST Unavailable Un available Mateo, Mariel Stout APRN FASHION JOURNALIST Unavailable Un available Samia Silverman MD Unavailable [phone] No Ref-Primary, Physician Primary Care Provider Mateo, Mariel Stout APRN FASHION JOURNALIST Unavailable Un available Nadege Jones APRN FASHION JOURNALIST Unavailable Mateo, Mariel Stout APRN FASHION JOURNALIST Unavailable Un available Nadege Jones APRN FASHION JOURNALIST Unavailable Mateo, Mariel Stout APRN FASHION JOURNALIST Unavailable Un available Mateo, Mariel Stout APRN FASHION JOURNALIST Unavailable Un available Mateo, Mariel Stout APRN FASHION JOURNALIST Unavailable Un available Deja Mendez PA-C Unavailable [phone] Reason for Visit * Reason Comments Medication Refill FLUoxetine (PROZAC) 20 MG capsule Encounter Details Date Type Department Care Team (Late st Contact Info) Description 03/25/[address] [address] Mariel Galindo APRN CNP Medication [...] PM CDT Legal Sex Female 10:33 AM IT APPLICATION ADMINISTRATOR Gender Identity Female 04/07/2021 2:32 PM [...] # refills: 1 [place] Office [place] [facility] [place] care [place]: 10/23/2016, Mateo Last PHQ-9 [...] as of this encounter Care Teams Wire Turning Machine Operator Relationship Specialty Start Date End Date Mariel Galindo APRN CNP PCP - General Nurse Practitioner 08/13/14 06/08/22 Mariel Galindo APRN FASHION JOURNALIST PCP - Assigned PCP 10/21/14 11/15/18 No Ref-Primary, Physician PCP - General 06/09/22 06/02/23 Mariel Galindo APRN CNP Assigned PCP 10/21/14 04/10/22 Samia Silverman MD [address] [place] [id number] Assigned OBGYN Provider 08/04/20 Mariel Galindo APRN FASHION JOURNALIST Assigned PCP 06/27/22 01/08/23 Nadege Jones APRN CNP [address] [facility] [place] [address] Assigned PCP 01/09/23 01/15/23 Mariel Galindo APRN FASHION JOURNALIST Assigned PCP 01/16/23 04/23/23 Nadege Jones APRN FASHION JOURNALIST [address] [place] [address] Assigned PCP 04/24/23 10/06/23 Mariel Galindo APRN CNP Assigned PCP 10/07/23 11/04/23 Mariel Galindo APRN FASHION JOURNALIST Assigned PCP 11/05/23 12/03/23 Mariel Galindo, [place] FASHION JOURNALIST Assigned PCP 12/04/23 01/03/24 Deja Mendez PA-C [address] [place] [address] Assigned PCP 01/04/24 documented as of this encounter
--- OUTSIDE RECORDS SUMMARY | 2024-08-04 11:27 | XMS_ITS | Encounter Summary ---
Author Organization [facility] Address [address] [place] [address]. [place] [address] Care Team Providers Care Veterinarian Helper Name Role Phone Mateo, Mariel Stout CARDIOVASCULAR RN CORRECTIONAL OFFICER CHIEF Primary Care Provi adam Unavailable Mateo, Mariel Stout CARDIOVASCULAR RN CORRECTIONAL OFFICER CHIEF Unavailable Un available Samia Silverman MD Unavailable [phone] No Ref-Primary, Physician Primary Care Provider Mateo, Mariel Stout CARDIOVASCULAR RN CORRECTIONAL OFFICER CHIEF Unavailable Un available Nadege Jones APRN CORRECTIONAL OFFICER CHIEF Unavailable [phone] Mateo, Mariel Argelia CARDIOVASCULAR RN CORRECTIONAL OFFICER CHIEF Unavailable Un available Nadege Jones APRN CORRECTIONAL OFFICER CHIEF Unavailable Mateo, Mariel Stout CARDIOVASCULAR RN CORRECTIONAL OFFICER CHIEF Unavailable Un available Mateo, Mariel Stout CARDIOVASCULAR RN CORRECTIONAL OFFICER CHIEF Unavailable Un available Mateo, Mariel Stout CARDIOVASCULAR RN CORRECTIONAL OFFICER CHIEF Unavailable Un available Deja Mendez PA-C Unavailable [phone] Encounter Details Date Type Department Care Team (Late st Contact Info) Description 03/03/2021 [facility] [place] [facility] [address] [place] [address] Sheyla Cespedes, PULMONARY CARE NURSE Social History Tobacco Use Types Packs/Day Years Used Date Smoking Tobacco: Never Smokeless Tobacco: Never Alcohol Use Standard Drinks/Week Comments Not Currently 0 (1 standard drink = 0.6 oz pur e alcohol) wine occasionally PHQ-2 Answer Date Recorded PHQ-2 Total Score (Adult) - Positive if 3 or more points; Administer PHQ-9 if positive 0 03/06/2021 [place] Depression Scale Answer Date Recorded [place] Depression Score 16 12/04/2020 Last EPDS Self Harm Result Not on file 12/04 Comments No Sex and Gender Information Value Date Recorded Sex Assigned at Female 04/07/2021 2:32 PM CDT Legal Sex Female 10:33 AM PAPERBOARD BOXES ESTIMATOR Gender Identity Female 04/07/2021 2:32 PM CDT Sexual Orientation Straight 04/07/2021 2: 32 PM CDT documented as of this encounter Plan of Treatment Not on file documented as of this encounter Visit Diagnoses Not on filedocumented in this encounter Additional Health Concerns Assessment Noted Time PHQ-9 Depression Total Score: 10 021 7:04 AM CDT documented as of this encounter Care Teams Veterinarian Helper Relationship Specialty Start Date End Date Mariel Galindo APRN CNP PCP - General Nurse Practitioner 08/13/14 06/08/22 No Ref-Primary, Physician PCP - General 06/09/22 06/02/23 Mariel Galindo APRN CORRECTIONAL OFFICER CHIEF Assigned PCP 10/21/14 04/10/22 Samia Silverman MD [address] [place] [address] Assigned OBGYN Provider 08/04/20 Mariel Galindo APRN CORRECTIONAL OFFICER CHIEF Assigned PCP 06/27/22 01/08/23 Nadege Jones APRN CORRECTIONAL OFFICER CHIEF [address] [place] [address] Assigned PCP 01/09/23 01/15/23 Mariel Galindo APRN CORRECTIONAL OFFICER CHIEF Assigned PCP 01/16/23 04/23/23 Nadege Jones APRN CORRECTIONAL OFFICER CHIEF [address] [place] [address] Assigned PCP 04/24/23 10/06/23 Mateo, Mariel Stout APRN CORRECTIONAL OFFICER CHIEF Assigned PCP 10/07/23 11/04/23 Mateo, Mariel Stout APRN CORRECTIONAL OFFICER CHIEF Assigned PCP 11/05/23 12/03/23 Mateo, Mariel Stout APRN CORRECTIONAL OFFICER CHIEF Assigned PCP 12/04/23 01/03/24 Deja Mendez PA-C [address] [place] [address] Assigned PCP 01/04/24 documented as of this encounter
--- OUTSIDE RECORDS SUMMARY | 2024-08-04 11:27 | XMS_ITS | Encounter Summary ---
Author Organization [facility] Address [address] [place] [address] Care Team Providers Care Bank Operations Officer Name Role Phone MateoMariel meng APRN ASIAN STUDIES PROGRAM CHAIR Primary Care Provi adam Unavailable Mateo, Mariel Stout APRN ASIAN STUDIES PROGRAM CHAIR Unavailable Un available Mateo, Mariel Stout APRN ASIAN STUDIES PROGRAM CHAIR Unavailable Un available Samia Silverman MD Unavailable No Ref-Primary, Physician Primary Care Provider Mateo, Mariel Stout APRN ASIAN STUDIES PROGRAM CHAIR Unavailable Un available Nadege Jones APRN ASIAN STUDIES PROGRAM CHAIR Unavailable Mateo, Mariel Stout APRN ASIAN STUDIES PROGRAM CHAIR Unavailable Un available Nadege Jones APRN ASIAN STUDIES PROGRAM CHAIR Unavailable Mateo, Mariel Stout APRN ASIAN STUDIES PROGRAM CHAIR Unavailable Un available Mateo, Mariel Stout APRN ASIAN STUDIES PROGRAM CHAIR Unavailable Un available Mateo, Mariel Stout APRN ASIAN STUDIES PROGRAM CHAIR Unavailable Un available Deja Mendez PA-C Unavailable [phone] Encounter Details Date Type Department Care [...] PM CDT Legal Sex Female 10:33 AM MGMT ANALYST Gender Identity Female 04/07/2021 2:32 PM CDT Sexual Orientation Straight 04/07/2021 2: 32 PM CDT documented as of this encounter Plan of Treatment Not on file documented as of this encounter Visit Diagnoses Not on filedocumented in this encounter Additional Health Concerns Assessment Noted Time PHQ-9 Depression Total Score: 12 017 7:21 AM MGMT ANALYST documented as of this encounter Care Teams Bank Operations Officer Relationship Specialty Start Date End Date Mariel Galindo APRN CNP PCP - General Nurse Practitioner 08/13/14 06/08/22 Mariel Galindo APRN CNP PCP - Assigned PCP 10/21/14 11/15/18 No Ref-Primary, Physician PCP - General 06/09/22 06/02/23 Mariel Galindo APRN CNP Assigned PCP 10/21/14 04/10/22 Samia Silverman MD [address] [address] Assigned OBGYN Provider 08/04/20 Mariel Galindo APRN CNP Assigned PCP 06/27/22 01/08/23 Nadege Jones APRN ASIAN STUDIES PROGRAM CHAIR [address] [place] [phone] Assigned PCP 01/09/23 01/15/23 Mariel Galindo APRN ASIAN STUDIES PROGRAM CHAIR Assigned PCP 01/16/23 04/23/23 Nadege Jones APRN CNP [address] [place] [phone] Assigned PCP 04/24/23 10/06/23 MateoMariel meng APRN ASIAN STUDIES PROGRAM CHAIR Assigned PCP 10/07/23 11/04/23 MateoMariel meng APRN ASIAN STUDIES PROGRAM CHAIR Assigned PCP 11/05/23 12/03/23 Mariel Galindo APRN ASIAN STUDIES PROGRAM CHAIR Assigned PCP 12/04/23 01/03/24 Deja Mendez PA-C [address] [place] [address] Assigned PCP 01/04/24 documented as of this encounter
--- OUTSIDE RECORDS SUMMARY | 2024-08-04 11:27 | XMS_ITS | Encounter Summary ---
Author Organization [facility] Address [address] [place] [address] Care Team Providers Care Sampler First Name Role Phone Mateo, Mariel Stout MANAGER SEARCH LAWN TECHNICIAN Primary Care Provi adam Unavailable Mateo, Mariel Stout MANAGER SEARCH LAWN TECHNICIAN Unavailable Un available Samia Silverman MD Unavailable [phone] No Ref-Primary, Physician Primary Care Provider Mateo, Mariel Stout APRN LAWN TECHNICIAN Unavailable Un available Nadege Jones APRN LAWN TECHNICIAN Unavailable [phone] Mateo, Mariel Stout APRN LAWN TECHNICIAN Unavailable Un available Nadege Jones APRN LAWN TECHNICIAN Unavailable Mateo, Mariel Stout APRN LAWN TECHNICIAN Unavailable Un available Mateo, Mariel Stout APRN LAWN TECHNICIAN Unavailable Un available MateoMariel APRN LAWN TECHNICIAN Unavailable Un available Deja Mendez PA-C Unavailable [phone] Encounter Details Date Type Department Care [...] PM CDT Legal Sex Female 10:33 AM LEGAL ASSOCIATE Gender Identity Female 04/07/2021 2:32 PM CDT [...] documented as of this encounter Care Teams Sampler First Relationship Specialty Start Date End Date Mariel Galindo APRN CNP PCP - General Nurse Practitioner 08/13/14 06/08/22 No Ref-Primary, Physician PCP - General 06/09/22 06/02/23 Mariel Galindo APRN LAWN TECHNICIAN Assigned PCP 10/21/14 04/10/22 Samia Silverman MD [address] [place] [address] Assigned OBGYN Provider 08/04/20 Mariel Galinod APRN LAWN TECHNICIAN Assigned PCP 06/27/22 01/08/23 Nadege Jones APRN LAWN TECHNICIAN [address] [place] [address] Assigned PCP 01/09/23 01/15/23 Mariel Galindo APRN LAWN TECHNICIAN Assigned PCP 01/16/23 04/23/23 Nadege Jones APRN LAWN TECHNICIAN [address] [place] [address] Assigned PCP 04/24/23 10/06/23 Mariel Galindo APRN LAWN TECHNICIAN Assigned PCP 10/07/23 11/04/23 MateoMariel meng APRN LAWN TECHNICIAN Assigned PCP 11/05/23 12/03/23 Mariel Galindo APRN LAWN TECHNICIAN Assigned PCP 12/04/23 01/03/24 Deja Mendez PA-C [address] [place] [address] Assigned PCP 01/04/24 documented as of this encounter
--- OUTSIDE RECORDS SUMMARY | 2024-08-04 11:27 | XMS_ITS | Encounter Summary ---
Author Organization [facility] Address [address] [place] [address] Care Team Providers Care Risk Control Manager Name Role Phone Mateo, Mariel Stout APRN, CNP Primary Care Provi adam Unavailable Mateo, Mariel Stout APRN PHONE MANAGER Unavailable Un available Samia Silverman MD Unavailable [phone] No Ref-Primary, Physician Primary Care Provider Mateo, Mariel Stout APRN PHONE MANAGER Unavailable Un available Nadege Jones APRN PHONE MANAGER Unavailable [phone] Mateo, Mariel Stout APRN PHONE MANAGER Unavailable Un available Nadege Jones APRN PHONE MANAGER Unavailable Mateo, Mariel Stout APRN PHONE MANAGER Unavailable Un available Mateo, Mariel Stout APRN PHONE MANAGER Unavailable Un available MateoMariel meng APRN PHONE MANAGER Unavailable Un available Deja Mendez PA-C Unavailable [phone] Reason for Visit * Reason Onset Date Comments Refill Request 03/06/2021 Encounter Details Date Type Department Care Team (Late st Contact Info) Description 03/06/2021 [facility] [address] [address] Mariel Galindo APRN CNP Refill Request Social History Tobacco Use Types Packs/Day Years Used Date Smoking Tobacco: Never Smokeless Tobacco: Never Alcohol Use Standard Drinks/Week Comments Not Currently 0 (1 standard drink = 0.6 oz pur e alcohol) wine occasionally PHQ-2 Answer Date Recorded PHQ-2 Total Score (Adult) - Positive if 3 or more points; Administer PHQ-9 if positive 0 03/06/2021 [place] Depression Scale Answer Date Recorded [place] Depression Score 16 12/04/2020 Last EPDS Self Harm Result Not on file 12/04 Comments No Sex and Gender Information Value Date Recorded Sex Assigned at Female 04/07/2021 2:32 PM CDT Legal Sex Female 10:33 AM UNDERWRITING ASSISTANT Gender Identity Female 04/07/2021 2:32 PM CDT [...] documented as of this encounter Care Teams Risk Control Manager Relationship Specialty Start Date End Date Mariel Galindo APRN PHONE MANAGER PCP - General Nurse Practitioner 08/13/14 06/08/22 No Ref-Primary, Physician PCP - General 06/09/22 06/02/23 Mateo, Mariel Stout APRN PHONE MANAGER Assigned PCP 10/21/14 04/10/22 Samia Silverman MD [address] [place] [address] Assigned OBGYN Provider 08/04/20 Mateo, Mariel Stout APRN PHONE MANAGER Assigned PCP 06/27/22 01/08/23 Nadege Jones APRN PHONE MANAGER [address] [place] [phone] Assigned PCP 01/09/23 01/15/23 Mateo, Mariel Stout APRN PHONE MANAGER Assigned PCP 01/16/23 04/23/23 Nadege Jones APRN PHONE MANAGER [address] [place] [phone] Assigned PCP 04/24/23 10/06/23 Mateo, Mariel Stout APRN PHONE MANAGER Assigned PCP 10/07/23 11/04/23 Mateo, Mariel Stout APRN PHONE MANAGER Assigned PCP 11/05/23 12/03/23 Mateo, Mariel Stout APRN PHONE MANAGER Assigned PCP 12/04/23 01/03/24 Deja Mendez PA-C [address] [place] [address] Assigned PCP 01/04/24 documented as of this encounter
--- OUTSIDE RECORDS SUMMARY | 2024-08-04 11:27 | XMS_ITS | Encounter Summary ---
Author Organization [facility] Address [address] [place] [address] Care Team Providers Care Sheriffs Officer Name Role Phone Mateo, Mariel Stout APRN, CNP Primary Care Provi adam Unavailable Mateo, Mariel Stout APRN MEAT CUTTING BLOCK REPAIRER Unavailable Un available Samia Silverman MD Unavailable [phone] No Ref-Primary, Physician Primary Care Provider Mateo, Mariel Stout APRN MEAT CUTTING BLOCK REPAIRER Unavailable Un available Nadege Jones APRN MEAT CUTTING BLOCK REPAIRER Unavailable [phone] Mateo, Mariel Stout APRN MEAT CUTTING BLOCK REPAIRER Unavailable Un available Nadege Jones APRN MEAT CUTTING BLOCK REPAIRER Unavailable [phone] Mateo, Mariel Stout APRN MEAT CUTTING BLOCK REPAIRER Unavailable Un available Mateo, Mariel Stout APRN MEAT CUTTING BLOCK REPAIRER Unavailable Un available MateoMariel meng APRN MEAT CUTTING BLOCK REPAIRER Unavailable Un available Deja Mendez PA-C Unavailable [phone] Reason for Visit * Reason Onset Date Comments Refill Request 09/14/2019 Encounter Details Date Type Department Care Team (Late st Contact Info) Description 09/14/2019 [facility] [address] [address] Mariel Galindo APRN CNP Refill [...] PM CDT Legal Sex Female 10:33 AM MASONRY CONTRACTOR ADMINISTRATOR Gender Identity Female 04/07/2021 2:32 PM [...] Total Score: 9 07/28/20 19 8:28 AM MASONRY CONTRACTOR ADMINISTRATOR documented as of this encounter Care Teams Sheriffs Officer Relationship Specialty Start Date End Date Mariel Galindo APRN CNP PCP - General Nurse Practitioner 08/13/14 06/08/22 No Ref-Primary, Physician PCP - General 06/09/22 06/02/23 Mariel Galindo APRN CNP Assigned PCP 10/21/14 04/10/22 Samia Silverman MD [address] [place] [address] Assigned OBGYN Provider 08/04/20 Mariel Galindo APRN MEAT CUTTING BLOCK REPAIRER Assigned PCP 06/27/22 01/08/23 Nadege Jones APRN MEAT CUTTING BLOCK REPAIRER [address] [place] [place] [address] Assigned PCP 01/09/23 01/15/23 Mariel Galindo APRN MEAT CUTTING BLOCK REPAIRER Assigned PCP 01/16/23 04/23/23 Nadege Jones APRN MEAT CUTTING BLOCK REPAIRER [address] [place] [address] Assigned PCP 04/24/23 10/06/23 MateoMariel meng APRN MEAT CUTTING BLOCK REPAIRER Assigned PCP 10/07/23 11/04/23 Mateo, Mariel Stout APRN MEAT CUTTING BLOCK REPAIRER Assigned PCP 11/05/23 12/03/23 Mateo, Mariel Stout APRN MEAT CUTTING BLOCK REPAIRER Assigned PCP 12/04/23 01/03/24 Deja Mendez PA-C [address] [place] [address] Assigned PCP 01/04/24 documented as of this encounter
--- OUTSIDE RECORDS SUMMARY | 2024-08-04 11:27 | XMS_ITS | Encounter Summary ---
Author Organization [facility] Address [address] [place] [address]. [place] [address] Care Team Providers Care Screedman Name Role Phone Mateo, Mariel Stout CATTLE DRIVER PIERCING ARTIST Primary Care Provi adam Unavailable Mateo, Mariel Stout CATTLE DRIVER PIERCING ARTIST Unavailable Un available Samia Silverman MD Unavailable No Ref-Primary, Physician Primary Care Provider Mateo, Mariel Stout CATTLE DRIVER PIERCING ARTIST Unavailable Un available Nadege Jones APRN PIERCING ARTIST Unavailable [phone] Mateo, Mariel Argelia CATTLE DRIVER PIERCING ARTIST Unavailable Un available Nadege Jones APRN PIERCING ARTIST Unavailable Mateo, Mariel Stout APRN PIERCING ARTIST Unavailable Un available Mateo, Mariel Stout APRN PIERCING ARTIST Unavailable Un available Mateo, Mariel Stout APRN PIERCING ARTIST Unavailable Un available Deja Mendez PA-C Unavailable [phone] Encounter Details Date Type Department Care Team (Late st Contact Info) Description 09/27/2019 [facility] Medical Advice [address] [place] [address] Mimi Sun Social History Tobacco [...] PM CDT Legal Sex Female 10:33 AM ELECTRICAL PROSPECTING OPERATOR Gender Identity Female 04/07/2021 2:32 PM CDT Sexual Orientation Straight 04/07/2021 2: 32 PM CDT documented as of this encounter Plan of Treatment Not on file documented as of this encounter Visit Diagnoses Not on filedocumented in this encounter Additional Health Concerns Assessment Noted Time PHQ-9 Depression Total Score: 9 07/28/20 19 8:28 AM ELECTRICAL PROSPECTING OPERATOR documented as of this encounter Care Teams Screedman Relationship Specialty Start Date End Date Mariel Galindo APRN CNP PCP - General Nurse Practitioner 08/13/14 06/08/22 No Ref-Primary, Physician PCP - General 06/09/22 06/02/23 Mariel Galindo APRN PIERCING ARTIST Assigned PCP 10/21/14 04/10/22 Samia Silverman MD [address] [address] Assigned OBGYN Provider 08/04/20 Mariel Galindo APRN PIERCING ARTIST Assigned PCP 06/27/22 01/08/23 Nadege Jones APRN PIERCING ARTIST [address] [place] [phone] Assigned PCP 01/09/23 01/15/23 Mariel Galindo APRN PIERCING ARTIST Assigned PCP 01/16/23 04/23/23 Nadege Jones APRN PIERCING ARTIST [address] [place] [phone] Assigned PCP 04/24/23 10/06/23 MateoMariel meng APRN PIERCING ARTIST Assigned PCP 10/07/23 11/04/23 MateoMariel meng APRN PIERCING ARTIST Assigned PCP 11/05/23 12/03/23 MateoMariel meng APRN PIERCING ARTIST Assigned PCP 12/04/23 01/03/24 Deja Mendez PA-C [address] [place] [address] Assigned PCP 01/04/24 documented as of this encounter
--- OUTSIDE RECORDS SUMMARY | 2024-08-04 11:27 | XMS_ITS | Encounter Summary ---
Author Organization [facility] Address [address] [place] [address] Care Team Providers Care District Scout Executive Name Role Phone Mateo, Mariel Stout APRN, CNP Primary Care Provi adam Unavailable Mateo, Mariel Stout APRN MECHANICAL TEST ENGINEER Unavailable Un available Samia Silverman MD Unavailable [phone] No Ref-Primary, Physician Primary Care Provider Mateo, Mariel Stout APRN MECHANICAL TEST ENGINEER Unavailable Un available Nadege Jones APRN MECHANICAL TEST ENGINEER Unavailable Mateo, Mariel Stout APRN MECHANICAL TEST ENGINEER Unavailable Un available Nadege Jones APRN MECHANICAL TEST ENGINEER Unavailable Mateo, Mariel Stout APRN MECHANICAL TEST ENGINEER Unavailable Un available Mateo, Mariel Stout APRN MECHANICAL TEST ENGINEER Unavailable Un available MateoMariel meng APRN MECHANICAL TEST ENGINEER Unavailable Un available Deja Mendez PA-C Unavailable [phone] Reason for Visit * Reason Comments Medication Refill Encounter Details Date Type Department Care Team (Late st Contact Info) Description 02/02/[address] [address] Mariel Galindo APRN CNP Medication Refill Social History Tobacco Use Types Packs/Day Years Used Date Smoking Tobacco: Never Smokeless Tobacco: Never Alcohol Use Standard Drinks/Week Comments Not Currently 0 (1 standard drink = 0.6 oz pur e alcohol) wine occasionally PHQ-2 Answer Date Recorded PHQ-2 Score 3 12/23/2020 [place] Depression Scale Answer Date Recorded [place] Depression Score 16 12/04/2020 Last EPDS Self Harm Result Not on file 12/04 Comments No Sex and Gender Information Value Date Recorded Sex Assigned at Female 04/07/2021 2:32 PM CDT Legal Sex Female 10:33 AM CODING DIRECTOR Gender Identity Female 04/07/2021 2:32 PM CDT [...] documented as of this encounter Care Teams District Scout Executive Relationship Specialty Start Date End Date Mariel Galindo APRN MECHANICAL TEST ENGINEER PCP - General Nurse Practitioner 08/13/14 06/08/22 No Ref-Primary, Physician PCP - General 06/09/22 06/02/23 Mariel Galindo APRN MECHANICAL TEST ENGINEER Assigned PCP 10/21/14 04/10/22 Samia Silverman MD [address] [address] Assigned OBGYN Provider 08/04/20 Mariel Galindo APRN CNP Assigned PCP 06/27/22 01/08/23 Nadege Jones APRN MECHANICAL TEST ENGINEER [address], [place] [phone] Assigned PCP 01/09/23 01/15/23 Mateo, Mariel Stout APRN MECHANICAL TEST ENGINEER Assigned PCP 01/16/23 04/23/23 Nadege Jones APRN MECHANICAL TEST ENGINEER [address], [place] [phone] Assigned PCP 04/24/23 10/06/23 Mateo, Mariel Stout APRN MECHANICAL TEST ENGINEER Assigned PCP 10/07/23 11/04/23 Mateo, Mariel Stout APRN MECHANICAL TEST ENGINEER Assigned PCP 11/05/23 12/03/23 Mateo, Mariel Stout APRN MECHANICAL TEST ENGINEER Assigned PCP 12/04/23 01/03/24 Deja Mendez PA-C [address] [place] [address] Assigned PCP 01/04/24 documented as of this encounter
--- OUTSIDE RECORDS SUMMARY | 2024-08-04 11:27 | XMS_ITS | Encounter Summary ---
Author Organization [facility] Address [address] [place] [address] Care Team Providers Care Cornice Upholsterer Name Role Phone Mateo, Mariel Stout APRN COMPLEX CARE NURSE PRACTITIONER Primary Care Provi adam Unavailable Mateo, Mariel Stout APRN COMPLEX CARE NURSE PRACTITIONER Unavailable Un available Samia Silverman MD Unavailable [phone] No Ref-Primary, Physician Primary Care Provider Matoe, Mariel Stout APRN COMPLEX CARE NURSE PRACTITIONER Unavailable Un available Nadege Jones APRN COMPLEX CARE NURSE PRACTITIONER Unavailable [phone] Mateo, Mariel Stout APRN COMPLEX CARE NURSE PRACTITIONER Unavailable Un available Nadege Jones APRN COMPLEX CARE NURSE PRACTITIONER Unavailable Mateo, Mariel Stout APRN COMPLEX CARE NURSE PRACTITIONER Unavailable Un available Mateo, Mariel Stout APRN COMPLEX CARE NURSE PRACTITIONER Unavailable Un available Mateo, Mariel Stout APRN COMPLEX CARE NURSE PRACTITIONER Unavailable Un available Deaj Mendez PA-C Unavailable [phone] Reason for Visit * Reason Onset Date Comments Refill Request 06/20/2019 [facility] Encounter Details Date Type Department Care Team (Late st Contact Info) Description 06/20/2019 [facility] [address] [address] Mariel Galindo APRN CNP Refill Request ([facility]) [...] PM CDT Legal Sex Female 10:33 AM GLOBAL CEO Gender Identity Female 04/07/2021 2:32 PM CDT [...] for review/approval because: Drug not on the [facility] refill protocol SOFTWARE VALIDATION ENGINEER: .31. Annual Controlled substance agreement: 416 Annual [...] SHOULD BE DELETED.) Last Office Visit with [facility] primary care provider: 10/24/2018-Mariel Galindo Future Office [...] consultation, please call . Analysis performed by [facility], [address] [place] [address] , No results found for: COMDAT, No results found for: THC13, PCP13, COC13, MAMP13, OPI13, AMP13, BZO13, TCA13, MTD13, BAR13, OXY13, PPX13, BUP13 Processing: Send Electronically to pharmacy [email or web address] SOFTWARE VALIDATION ENGINEER checked in past 3 months? No, route to RN documented in this encounter Plan of Treatment Not on file documented as of this encounter Visit Diagnoses Diagnosis ADHD (attention deficit hyperactivity disorder), combined type Attention deficit disorder with hyperactivity documented in this encounter Additional Health Concerns Assessment Noted Time PHQ-9 Depression Total Score: 13 019 7:06 AM GLOBAL CEO documented as of this encounter Care Teams Cornice Upholsterer Relationship Specialty Start Date End Date Mariel Galindo APRN COMPLEX CARE NURSE PRACTITIONER PCP - General Nurse Practitioner 08/13/14 06/08/22 No Ref-Primary, Physician PCP - General 06/09/22 06/02/23 Mariel Galindo APRN COMPLEX CARE NURSE PRACTITIONER Assigned PCP 10/21/14 04/10/22 Samia Silverman MD [address] [place] [address] Assigned OBGYN Provider 08/04/20 Mateo, Mariel Stout APRN COMPLEX CARE NURSE PRACTITIONER Assigned PCP 06/27/22 01/08/23 Nadege Jones APRN COMPLEX CARE NURSE PRACTITIONER [address] [place] [phone] Assigned PCP 01/09/23 01/15/23 Mateo, Mariel Stout APRN COMPLEX CARE NURSE PRACTITIONER Assigned PCP 01/16/23 04/23/23 Nadege Jones APRN COMPLEX CARE NURSE PRACTITIONER [address] [place] [phone] Assigned PCP 04/24/23 10/06/23 Mateo, Mariel Stout APRN COMPLEX CARE NURSE PRACTITIONER Assigned PCP 10/07/23 11/04/23 Mateo, Mariel Stout APRN COMPLEX CARE NURSE PRACTITIONER Assigned PCP 11/05/23 12/03/23 Mateo, Mariel Stout APRN COMPLEX CARE NURSE PRACTITIONER Assigned PCP 12/04/23 01/03/24 Deja Mendez PA-C [address] [place] [address] Assigned PCP 01/04/24 documented as of this encounter
--- OUTSIDE RECORDS SUMMARY | 2024-08-04 11:27 | XMS_ITS | Encounter Summary ---
Author Organization [facility] Address [address] [place] [address] Care Team Providers Care Global Marketing Intern Name Role Phone Mateo, Mariel Stout CLASS A REGIONAL DRIVERS UX VISUAL DESIGNER Primary Care Provi adam Unavailable Mateo, Mariel Stout CLASS A REGIONAL DRIVERS UX VISUAL DESIGNER Unavailable Un available Samia Silverman MD Unavailable [phone] No Ref-Primary, Physician Primary Care Provider Mateo, Mariel Stout CLASS A REGIONAL DRIVERS UX VISUAL DESIGNER Unavailable Un available Nadege Jones APRN UX VISUAL DESIGNER Unavailable [phone] Mateo, Mariel Argelia CLASS A REGIONAL DRIVERS UX VISUAL DESIGNER Unavailable Un available Nadege Jones APRN UX VISUAL DESIGNER Unavailable Mateo, Mariel Stout APRN UX VISUAL DESIGNER Unavailable Un available Mateo, Mariel Stout APRN UX VISUAL DESIGNER Unavailable Un available Mateo, Mariel Stout APRN UX VISUAL DESIGNER Unavailable Un available Deja Mendez PA-C Unavailable [phone] Encounter Details Date Type Department Care Team (Late st Contact Info) Description 09/16/2020 [facility] Medical Advice [address] [address] Sheyla Cespedes, MEDICAL BILLER CODER Social History Tobacco Use Types Packs/Day Years Used Date Smoking Tobacco: Never Smokeless Tobacco: Never Alcohol Use Standard Drinks/Week Comments Yes 0 (1 standard drink = 0.6 oz pur e alcohol) wine occasionally PHQ-2 Answer Date Recorded PHQ-2 Score 2 07/28/2019 Comments Yes Sex and Gender Information Value Date Recorded Sex Assigned at Female 04/07/2021 2:32 PM CDT Legal Sex Female 10:33 AM ACUTE CARE NURSE PRACTITIONER Gender Identity Female 04/07/2021 2:32 PM CDT Sexual Orientation Straight 04/07/2021 2 :32 PM CDT documented as of this encounter Plan of Treatment Not on file documented as of this encounter Visit Diagnoses Not on filedocumented in this encounter Additional Health Concerns Assessment Noted Time PHQ-9 Depression Total Score: 10 020 2:27 PM CDT documented as of this encounter Care Teams Global Marketing Intern Relationship Specialty Start Date End Date Mariel Galindo APRN CNP PCP - General Nurse Practitioner 08/13/14 06/08/22 No Ref-Primary, Physician PCP - General 06/09/22 06/02/23 Mariel Galindo APRN CNP Assigned PCP 10/21/14 04/10/22 Samia Silverman MD [address] [address] Assigned OBGYN Provider 08/04/20 Mariel Galindo APRN UX VISUAL DESIGNER Assigned PCP 06/27/22 01/08/23 Nadege Jones APRN UX VISUAL DESIGNER [address] [place] [phone] Assigned PCP 01/09/23 01/15/23 Mariel Galindo APRN UX VISUAL DESIGNER Assigned PCP 01/16/23 04/23/23 Nadege Jones APRN UX VISUAL DESIGNER [address] [place] [phone] Assigned PCP 04/24/23 10/06/23 MateoMariel meng APRN UX VISUAL DESIGNER Assigned PCP 10/07/23 11/04/23 MateoMariel meng APRN UX VISUAL DESIGNER Assigned PCP 11/05/23 12/03/23 MateoMariel meng APRN UX VISUAL DESIGNER Assigned PCP 12/04/23 01/03/24 Deja Mendez PA-C [address] [place] [phone] Assigned PCP 01/04/24 documented as of this encounter
== END 2024-08-04 11:23 | disposition home or self-care (01) ==
LOC: US 11:22
PROVIDERS: Visit Provider Midwife
DX: O36.5920 Maternal care for other known or suspected poor fetal growth, second trimester, not applicable or unspecified (principal); Z3A.27 27 weeks gestation of pregnancy
CPT/HCPCS: 76816

== ENCOUNTER 2024-08-18 08:55 | Outpatient (CLI) | payer OTHER, SELFPAY ==
--- OUTSIDE RECORDS SUMMARY | 2024-08-22 07:20 | XMS_ITS | Encounter Summary ---
Author Organization [facility] Address [address] [place] [address] Care Team Providers Care Butcher Assistant Name Role Phone No Ref-Primary, Physician Primary Care Provider MateoMariel [employer] SALESPERSON BRIDGE MAINTENANCE WORKER Unavailable Un available Nadege Jones APRN BRIDGE MAINTENANCE WORKER Unavailable [phone] MateoMariel [employer] SALESPERSON BRIDGE MAINTENANCE WORKER Unavailable Un available MateoMariel APRN BRIDGE MAINTENANCE WORKER Unavailable Un available MateoMariel APRN BRIDGE MAINTENANCE WORKER Unavailable Un available Deja Mendez PA-C Unavailable [phone] Encounter Details Date Type Department Care Team (Late st Contact Info) Description 04/16/2023 MyC Medical Advice [facility] [address] [place] [phone] Kimberly Montanez, [facility] Social History Tobacco Use Types Packs/Day [...] declined 04/20/2023 How often do you attend hindu or lutheran serv ices? Never 04/20/2023 Do you belong to any clubs o r organizations such as hindu groups, unions, fraternal or athletic groups, or [...] to sleep or slept in a senior care (including now)? No 04/20/2023 [place] Depression Scale Answer Date Recorded [place] Depression Score 16 12/04/2020 Last EPDS Self Harm Result Not on file 12/04 Comments No Sex and Gender Information Value Date Recorded Sex Assigned at Female 04/07/2021 2:32 PM CDT Legal Sex Female 10:33 AM WHEEL AND AXLE INSPECTOR Gender Identity Female 04/07/2021 2:32 PM CDT Sexual Orientation Straight 04/07/2021 2: 32 PM CDT documented as of this encounter Plan of Treatment Not on file documented as of this encounter Visit Diagnoses Not on filedocumented in this encounter Additional Health Concerns Assessment Noted Time PHQ-9 Depression Total Score: 12 023 3:55 PM CDT documented as of this encounter Care Teams Butcher Assistant Relationship Specialty Start Date End Date No Ref-Primary, Physician PCP - General 06/09/22 06/02/23 Mariel Galindo APRN BRIDGE MAINTENANCE WORKER Assigned PCP 01/16/23 04/23/23 Nadege Jones APRN BRIDGE MAINTENANCE WORKER [address] [place] [address] Assigned PCP 04/24/23 10/06/23 Mariel Galindo APRN BRIDGE MAINTENANCE WORKER Assigned PCP 10/07/23 11/04/23 Mariel Galindo APRN BRIDGE MAINTENANCE WORKER Assigned PCP 11/05/23 12/03/23 Mariel Galindo APRN BRIDGE MAINTENANCE WORKER Assigned PCP 12/04/23 01/03/24 Deja Mendez PA-C [address] [place] [phone] Assigned PCP 01/04/24 documented as of this encounter
--- OUTSIDE RECORDS SUMMARY | 2024-08-22 07:20 | XMS_ITS | Encounter Summary ---
Author Organization [place] Address [address] [place] [address] Care Team Providers Care Writer Producer Name Role Phone No Ref-Primary, Physician Primary Care Provider MateoMariel COMMUNITY ENGAGEMENT SPECIALIST BUSINESS QUALITY ASSURANCE ANALYST Unavailable Un available Nadege Jones APRN BUSINESS QUALITY ASSURANCE ANALYST Unavailable MateoMariel COMMUNITY ENGAGEMENT SPECIALIST BUSINESS QUALITY ASSURANCE ANALYST Unavailable Un available MateoMariel APRN BUSINESS QUALITY ASSURANCE ANALYST Unavailable Un available MateoMariel APRN BUSINESS QUALITY ASSURANCE ANALYST Unavailable Un available Deja Mendez PA-C Unavailable [phone] Encounter Details Date Type Department Care Team (Late st Contact Info) Description 01/25/[address] [facility] [id number] [place] [phone] Kimberly Montanez, [facility] Social History Tobacco Use Types Packs/Day Years Used Date Smoking Tobacco: Never Smokeless Tobacco: Never Alcohol Use Standard Drinks/Week Comments Yes 0 (1 standard drink = 0.6 oz pur e alcohol) wine occasionally PHQ-2 Answer Date Recorded PHQ-2 Total Score (Adult) - Positive if 3 or more points; Administer PHQ-9 if positive 2 11/24/2022 [place] Depression Scale Answer Date Recorded [place] Depression Score 16 12/04/2020 Last EPDS Self Harm Result Not on file 12/04 Comments No Sex and Gender Information Value Date Recorded Sex Assigned at Female 04/07/2021 2:32 PM CDT Legal Sex Female 10:33 AM ROUTE JUMPER Gender Identity Female 04/07/2021 2:32 PM CDT Sexual Orientation Straight 04/07/2021 2: 32 PM CDT documented as of this encounter Plan of Treatment Not on file documented as of this encounter Visit Diagnoses Not on filedocumented in this encounter Additional Health Concerns Assessment Noted Time PHQ-9 Depression Total Score: 12 023 3:55 PM CDT documented as of this encounter Care Teams Writer Producer Relationship Specialty Start Date End Date No Ref-Primary, Physician PCP - General 06/09/22 06/02/23 Mariel Galindo APRN BUSINESS QUALITY ASSURANCE ANALYST Assigned PCP 01/16/23 04/23/23 Nadege Jones APRN BUSINESS QUALITY ASSURANCE ANALYST [address] [facility] [place] [phone] Assigned PCP 04/24/23 10/06/23 Mariel Galindo APRN BUSINESS QUALITY ASSURANCE ANALYST Assigned PCP 10/07/23 11/04/23 Mariel Galindo APRN BUSINESS QUALITY ASSURANCE ANALYST Assigned PCP 11/05/23 12/03/23 Mariel Galindo APRN BUSINESS QUALITY ASSURANCE ANALYST Assigned PCP 12/04/23 01/03/24 Deja Mendez PA-C [address] [place] [address] Assigned PCP 01/04/24 documented as of this encounter
--- OUTSIDE RECORDS SUMMARY | 2024-08-22 07:20 | XMS_ITS | Encounter Summary ---
Author Organization [place] Address [address] [place] [address] Care Team Providers Care Administrative Technician Name Role Phone Mateo, Mariel Stout SHAREPOINT ADMIN FASHION JOURNALIST Primary Care Provi adam Unavailable Mateo, Mariel Stout SHAREPOINT ADMIN FASHION JOURNALIST Unavailable Un available No Ref-Primary, Physician Primary [...] Unavailable Un available Deja Mendez PA-C Unavailable [phone] Encounter Details Date Type Department Care Team (Late st Contact Info) Description 02/10/2022 [facility] [address] [place] [phone] Tamra Chavez PA-C [address] [place], [place] [phone] Social History Tobacco Use Types Packs/Day Years Used Date Smoking Tobacco: Never Smokeless Tobacco: Never Alcohol Use Standard Drinks/Week Comments Yes 0 (1 standard drink = 0.6 oz pur e alcohol) wine occasionally PHQ-2 Answer Date Recorded PHQ-2 Score 2 11/21/2021 [place] Depression Scale Answer Date Recorded [place] Depression Score 16 12/04/2020 Last EPDS Self Harm Result Not on file 12/04 Comments No Sex and Gender Information Value Date Recorded Sex Assigned at Female 04/07/2021 2:32 PM CDT Legal Sex Female 10:33 AM ASSOCIATE PROFESSOR COMPUTER SCIENCE Gender Identity Female 04/07/2021 2:32 PM CDT [...] Depression Total Score: 13 022 7:03 AM ASSOCIATE PROFESSOR COMPUTER SCIENCE documented as of this encounter Care Teams Administrative Technician Relationship Specialty Start Date End Date [...] Nadege Jones APRN CNP [address] [place] [phone] Assigned PCP 04/24/23 10/06/23 Mateo, Mariel Stout APRN FASHION JOURNALIST Assigned PCP 10/07/23 11/04/23 Mateo, Mariel Stout APRN FASHION JOURNALIST Assigned PCP 11/05/23 12/03/23 Mateo, Mariel Stout APRN FASHION JOURNALIST Assigned PCP 12/04/23 01/03/24 Deja Mendez PA-C [address] [place] [address] Assigned PCP 01/04/24 documented as of this encounter
--- OUTSIDE RECORDS SUMMARY | 2024-08-22 07:20 | XMS_ITS | Clinical Summary ---
Author Organization [place] Address [address] [place] [address] Care Team Providers Care Diamond Saw Operator Name Role Phone Deja Mendez PA-C Unavailable [phone] Allergies No known active allergies Medications [...] 07/28/19 NIL, +HR HPV, not 16/18. Plan [place] 06/11/20 Patient is lost to pap tracking [...] Neuropsych evaluation for ADD completed: UNKNOWN Last [facility] website verification: 06/28/19 [email or web address] Assessment & Plan (05/10/2017 6:36 PM CDT): [...] Neuropsych evaluation for ADD completed: No Last [facility] website verification: done on 05.10.17 [email or web address] CARDIOVASCULAR SCREENING; LDL GOAL LESS THAN 160 [...] declined 04/20/2023 How often do you attend jainism or orthodox serv ices? Never 04/20/2023 Do you belong to any clubs o r organizations such as jainism groups, unions, fraternal or athletic groups, or [...] Answer Date Recorded PHQ-2 Score 3 12/14/2023 [facility] of Occupat ional Health - [...] health care facility (including now)? No 04/20/2023 [place] Depression Scale Answer Date Recorded [place] Depression Score 16 12/04/2020 Last EPDS Self Harm Result Not on file 12/04 Adolescent Education Answer Date Record ed Getting School Help Needed Not on file 06/04 Comments No Sex and Gender Information Value Date Recorded Sex Assigned at Female 04/07/2021 2:32 PM CDT Legal Sex Female 10:33 AM FEEDER CATCHER Gender Identity Female 04/07/2021 2:32 PM CDT [...] TYPES DNA CERVICAL Routine 11/21/2021 8:09 AM FEEDER CATCHER Cervical cancer screening GYNECOLOGIC CYTOLOGY Routine 11/21/2021 8:09 AM FEEDER CATCHER Cervical cancer screening HIV ANTIGEN ANTIBODY COMBO [...] infants, and children. us Nadege Jones WARREN BUHR MILL OPERATOR LAB - BLOOD ORDERABLES F inal Result UM SPECIALTY CORE/PROT/ENDO UM Specialty Core/Prot/Endo [address] [facility] [address] [facility], [address] [place] [address], [facility] [phone] * Basic metabolic panel (Ca, Cl, CO2, [...] 04/20/2023 3:45 PM CDT Nadege Jones APRN BUHR MILL OPERATOR LAB - BLOOD ORDERABLES F inal Result Performing Organization Address City/[facility]/ZIP Co de Phone Number LABORATORY [facility] Core Lab [address] [facility], [address] [phone], [facility] [phone] * TSH WITH FREE T4 REFLEX (11/24/2022 11:06 AM CDT) TSH 1.31 0.30 - 4.20 uIU/mL 11/24/2022 5:51 PM CDT UU LABORATORY Blood BLOOD SPECIMEN / Unknown Venipuncture / Unknown 11/24/2022 11:06 AM CDT 11/24/2022 11:10 AM CDT Nadege Jones APRN, CNP LAB - BLOOD ORDERABLES F inal Result Performing Organization Address City/[facility] Co de Phone Number LABORATORY [facility] Core Lab [address] [facility], [address] [phone], [facility] [phone] * Pap Screen with HPV - recommended age 30 - 65 years (11/21/2021 8:09 AM FEEDER CATCHER) Interpretation Negative for Intraepithelial Lesion or Malignancy [...] component of this testing was completed at [facility] 11/25/2021 9:24 AM CDT SPECIALTY LABS Brushing CERVIX UTERI STRUCTURE / Unknown 11/21/2021 8:09 AM FEEDER CATCHER 11/21/2021 8:24 AM FEEDER CATCHER Yazmin Galindo APRN BUHR MILL OPERATOR LAB - CHRISTIAN Al al Result SPECIALTY LABS Specialty Lab [address] [facility], [address] [place] [address], [facility] [phone] * HPV High Risk Types DNA Cervical (11/21/2021 8:09 AM FEEDER CATCHER) Other HR HPV Negative Negative 11/26/2021 2:10 PM CDT MOLECULAR DIAGNOSTICS HPV16 DNA Negative Negative 11/26/2021 2:10 PM CDT MOLECULAR DIAGNOSTICS HPV18 DNA Negative Negative 11/26/2021 2:10 PM CDT MOLECULAR DIAGNOSTICS FINAL DIAGNOSIS This patient's sample is negative for HPV DNA. This test was developed and its performance characteristics determined by the [facility], Molecular Diagnostics Laboratory. It has [...] Non-blood Collection / Unknown 11/21/2021 8:09 AM FEEDER CATCHER 11/25/2021 3:59 PM CDT us Yazmin Galindo COLLEGE PHYSICS INSTRUCTOR BUHR MILL OPERATOR LAB - BLOOD ORDERAB LES Final Result MOLECULAR DIAGNOSTICS UM Molecular Diagnostics [address] [facility], [address] [place] [phone], [facility] [phone] * HIV Antigen Antibody Combo (05/20/2016) HIV Antigen Antibody Combo Negative Blood specimen (specimen) us Patient Reported LAB - BLOOD ORDERABLES Final Re sult from Last 3 Months or Most Recently Relevant to Health Maintenance Care Teams Diamond Saw Operator Relationship Specialty Start Date End Date Deja Mendez PA-C [address] [place] [phone] Assigned PCP 01/04/24
--- OUTSIDE RECORDS SUMMARY | 2024-08-22 07:20 | XMS_ITS | Encounter Summary ---
Author Organization [place] Address [address] [place] [address]. [place] [address] Care Team Providers Care Base Wad Operator Adjuster Name Role Phone No Ref-Primary, Physician Primary Care Provider Mateo, Mariel Stout DEHYDROGENATION OPERATOR DIRECTOR SCRIPT Unavailable Un available Nadege Jones APRN DIRECTOR SCRIPT Unavailable Mateo, Mariel Stout DEHYDROGENATION OPERATOR DIRECTOR SCRIPT Unavailable Un available Mateo, Mariel Stout APRN DIRECTOR SCRIPT Unavailable Un available Mateo, Mariel Stout APRN DIRECTOR SCRIPT Unavailable Un available Deja Mendez PA-C Unavailable [phone] Reason for Visit * Reason Onset Date Comments Refill Request 02/18/2023 Encounter Details Date Type Department Care Team (Late st Contact Info) Description 02/18/2023 MyC Refill M [address] [address] Amanda Tolbert PA-C [address] [facility] [address] [place], [place] [phone] Refill Request Social History Tobacco Use Types Packs/Day Years Used Date Smoking Tobacco: Never Smokeless Tobacco: Never Alcohol Use Standard Drinks/Week Comments Yes 0 (1 standard drink = 0.6 oz pur e alcohol) wine occasionally PHQ-2 Answer Date Recorded PHQ-2 Total Score (Adult) - Positive if 3 or more points; Administer PHQ-9 if positive 2 02/18/2023 [place] Depression Scale Answer Date Recorded [place] Depression Score 16 12/04/2020 Last EPDS Self Harm Result Not on file 12/04 Comments No Sex and Gender Information Value Date Recorded Sex Assigned at Female 04/07/2021 2:32 PM CDT Legal Sex Female 10:33 AM IMPORT CLERK Gender Identity Female 04/07/2021 2:32 PM CDT [...] documented as of this encounter Care Teams Base Wad Operator Adjuster Relationship Specialty Start Date End Date No Ref-Primary, Physician PCP - General 06/09/22 06/02/23 Mariel Galindo APRN DIRECTOR SCRIPT Assigned PCP 01/16/23 04/23/23 Nadege Jones APRN DIRECTOR SCRIPT [address] [place] [phone] Assigned PCP 04/24/23 10/06/23 Mariel Galindo APRN DIRECTOR SCRIPT Assigned PCP 10/07/23 11/04/23 Mariel Galindo APRN DIRECTOR SCRIPT Assigned PCP 11/05/23 12/03/23 Mariel Galindo APRN DIRECTOR SCRIPT Assigned PCP 12/04/23 01/03/24 Deja Mendez PA-C [address] [place] [address] Assigned PCP 01/04/24 documented as of this encounter
--- OUTSIDE RECORDS SUMMARY | 2024-08-22 07:20 | XMS_ITS | Referral Summary ---
Author Organization [place] Address [address] [place] [address] Care Team Providers Care Pilot Control Operator Name Role Phone Deja Mendez PA-C Unavailable [phone] Allergies No known active allergies Medications [...] 07/28/19 NIL, +HR HPV, not 16/18. Plan [place] 06/11/20 Patient is lost to pap tracking [...] Neuropsych evaluation for ADD completed: UNKNOWN Last [facility] website verification: 06/28/19 [email or web address] Assessment & Plan (05/10/2017 6:36 PM CDT): [...] Neuropsych evaluation for ADD completed: No Last [facility] website verification: done on 05.10.17 [email or web address] CARDIOVASCULAR SCREENING; LDL GOAL LESS THAN 160 [...] declined 04/20/2023 How often do you attend confucianism or shinto serv ices? Never 04/20/2023 Do you belong to any clubs o r organizations such as confucianism groups, unions, fraternal or athletic groups, or [...] Answer Date Recorded PHQ-2 Score 3 12/14/2023 [facility] [place] of Occupat ional Health - Occupational Stress [...] place to sleep or slept in a usp (including now)? No 04/20/2023 [place] Depression Scale Answer Date Recorded [place] Depression Score 16 12/04/2020 Last EPDS Self Harm Result Not on file 12/04 Adolescent Education Answer Date Record ed Getting School Help Needed Not on file 06/04 Comments No Sex and Gender Information Value Date Recorded Sex Assigned at Female 04/07/2021 2:32 PM CDT Legal Sex Female 10:33 AM QUILL LAYER Gender Identity Female 04/07/2021 2:32 PM CDT [...] TYPES DNA CERVICAL Routine 11/21/2021 8:09 AM QUILL LAYER Cervical cancer screening GYNECOLOGIC CYTOLOGY Routine 11/21/2021 8:09 AM QUILL LAYER Cervical cancer screening HIV ANTIGEN ANTIBODY COMBO [...] infants, and children. us Nadege Jones APRN LATH TIER LAB - BLOOD ORDERABLES F inal Result UM SPECIALTY CORE/PROT/ENDO UM Specialty Core/Prot/Endo [address] [facility] [address] [facility], [address] [place] [address], [facility] [phone] * Basic metabolic panel (Ca, Cl, CO2, [...] 3:45 PM CDT us Nadege Jones APRN LATH TIER LAB - BLOOD ORDERABLES F inal Result [facility] LABORATORY [facility] Core Lab 500 [facility], [address] [place] [phone], [facility] [phone] * TSH WITH FREE T4 REFLEX (11/24/2022 11:06 AM CDT) Pathologist [facility] TSH 1.31 0.30 - 4.20 uIU/mL 11/24/2022 5:51 PM CDT UU LABORATORY Blood BLOOD SPECIMEN / Unknown Venipuncture / Unknown 11/24/2022 11:06 AM CDT 11/24/2022 11:10 AM CDT us Nadege Jones APRN LATH TIER LAB - BLOOD ORDERABLES F inal Result [facility] Lab [address] [facility] [address] Building, [address] [place] [address], [facility] [phone] * Pap Screen with HPV - recommended age 30 - 65 years (11/21/2021 8:09 AM QUILL LAYER) Interpretation Negative for Intraepithelial Lesion or Malignancy [...] component of this testing was completed at [facility] 11/25/2021 9:24 AM CDT SPECIALTY LABS Brushing CERVIX UTERI STRUCTURE / Unknown 11/21/2021 8:09 AM QUILL LAYER 11/21/2021 8:24 AM QUILL LAYER Yazmin Galindo SENIOR SALES OPERATIONS ANALYST LATH TIER YAYA - CHRISTIAN Al al Result SPECIALTY LABS Specialty Lab [address] [facility] [address] Building, [address] [place] [phone], [facility] [phone] * HPV High Risk Types DNA Cervical (11/21/2021 8:09 AM QUILL LAYER) Other HR HPV Negative Negative 11/26/2021 2:10 PM CDT MOLECULAR DIAGNOSTICS HPV16 DNA Negative Negative 11/26/2021 2:10 PM CDT MOLECULAR DIAGNOSTICS HPV18 DNA Negative Negative 11/26/2021 2:10 PM CDT MOLECULAR DIAGNOSTICS FINAL DIAGNOSIS This patient's sample is negative for HPV DNA. This test was developed and its performance characteristics determined by the [facility], Molecular Diagnostics Laboratory. It has [...] followup is recommended. 11/26/2021 2:10 PM CDT [facility] Brushing CERVIX UTERI STRUCTURE / Unknown Non-blood Collection / Unknown 11/21/2021 8:09 AM QUILL LAYER 11/25/2021 3:59 PM CDT Yazmin Galindo APRN LATH TIER LAB - BLOOD ORDERAB LES Final Result [facility] [address] [facility] [address] Building, [address] [place] [phone], [facility] [phone] * HIV Antigen Antibody Combo (05/20/2016) HIV Antigen Antibody Combo Negative Blood specimen (specimen) us Patient Reported LAB - BLOOD ORDERABLES Final Re sult from Last 3 Months or Most Recently Relevant to Health Maintenance Care Teams Pilot Control Operator Relationship Specialty Start Date End Date Deja Mendez PA-C [address] [place] [phone] Assigned PCP 01/04/24
--- OUTSIDE RECORDS SUMMARY | 2024-08-22 07:20 | XMS_ITS | Encounter Summary ---
Author Organization [place] Address [address] [place] [address] Care Team Providers Care Event Marketing Representative Name Role Phone No Ref-Primary, Physician Primary Care Provider Mateo, Mariel Stout APRN GLUE BONE CRUSHER Unavailable Un available Nadege Jones APRN GLUE BONE CRUSHER Unavailable [phone] Mateo, Mariel Stout APRN GLUE BONE CRUSHER Unavailable Un available Mateo, Mariel Stout APRN GLUE BONE CRUSHER Unavailable Un available Mateo, Mariel Stout APRN GLUE BONE CRUSHER Unavailable Un available Deja Mendez PA-C Unavailable [phone] Reason for Visit * Reason Onset Date Comments Refill Request 02/18/2023 Encounter Details Date Type Department Care Team (Late st Contact Info) Description 02/18/2023 MyC Refill M [facility] [address] [place] [address] Tamra Chavez PA-C [address] [place] [address] Refill Request Social History Tobacco Use Types Packs/Day Years Used Date Smoking Tobacco: Never Smokeless Tobacco: Never Alcohol Use Standard Drinks/Week Comments Yes 0 (1 standard drink = 0.6 oz pur e alcohol) wine occasionally PHQ-2 Answer Date Recorded PHQ-2 Total Score (Adult) - Positive if 3 or more points; Administer PHQ-9 if positive 2 02/18/2023 [place] Depression Scale Answer Date Recorded [place] Depression Score 16 12/04/2020 Last EPDS Self Harm Result Not on file 12/04 Comments No Sex and Gender Information Value Date Recorded Sex Assigned at Female 04/07/2021 2:32 PM CDT Legal Sex Female 10:33 AM RADAR TECHNICIAN Gender Identity Female 04/07/2021 2:32 PM [...] documented as of this encounter Care Teams Event Marketing Representative Relationship Specialty Start Date End Date No Ref-Primary, Physician PCP - General 06/09/22 06/02/23 Mariel Galindo APRN GLUE BONE CRUSHER Assigned PCP 01/16/23 04/23/23 Nadege Jones APRN GLUE BONE CRUSHER [address] [place] [phone] Assigned PCP 04/24/23 10/06/23 Mariel Galindo APRN GLUE BONE CRUSHER Assigned PCP 10/07/23 11/04/23 Mariel Galindo APRN GLUE BONE CRUSHER Assigned PCP 11/05/23 12/03/23 Mariel Galindo APRN GLUE BONE CRUSHER Assigned PCP 12/04/23 01/03/24 Deja Mendez PA-C [address] [place] [phone] Assigned PCP 01/04/24 documented as of this encounter
--- OUTSIDE RECORDS SUMMARY | 2024-08-22 07:21 | XMS_ITS | Encounter Summary ---
Author Organization [place] Address [address] [place] [address]. [place] [address] Care Team Providers Care Digital Experience Manager Name Role Phone Mateo, Mariel Stout FORKLIFT TECHNICIAN SCULPTURE CONSERVATOR Primary Care Provi adam Unavailable Mateo, Mariel Stout FORKLIFT TECHNICIAN SCULPTURE CONSERVATOR Unavailable Un available Samia Silverman MD Unavailable [phone] No Ref-Primary, Physician Primary Care Provider Mateo, Mariel Stout FORKLIFT TECHNICIAN SCULPTURE CONSERVATOR Unavailable Un available Nadege Jones APRN SCULPTURE CONSERVATOR Unavailable Mateo, Mariel Argelia FORKLIFT TECHNICIAN SCULPTURE CONSERVATOR Unavailable Un available Nadege Jones APRN SCULPTURE CONSERVATOR Unavailable Mateo, Mariel Stout FORKLIFT TECHNICIAN SCULPTURE CONSERVATOR Unavailable Un available Mateo, Mariel Stout FORKLIFT TECHNICIAN SCULPTURE CONSERVATOR Unavailable Un available Mateo, Mariel Stout FORKLIFT TECHNICIAN SCULPTURE CONSERVATOR Unavailable Un available Deja Mendez PA-C Unavailable [phone] Encounter Details Date Type Department Care Team (Late st Contact Info) Description 03/03/2021 [facility] Medical Advice [facility] [place] [address] [place] [address] Sheyla Cespedes, LOSS PREVENTION GUARD Social History Tobacco Use Types Packs/Day Years Used Date Smoking Tobacco: Never Smokeless Tobacco: Never Alcohol Use Standard Drinks/Week Comments Not Currently 0 (1 standard drink = 0.6 oz pur e alcohol) wine occasionally PHQ-2 Answer Date Recorded PHQ-2 Total Score (Adult) - Positive if 3 or more points; Administer PHQ-9 if positive 0 03/06/2021 [place] Depression Scale Answer Date Recorded [place] Depression Score 16 12/04/2020 Last EPDS Self Harm Result Not on file 12/04 Comments No Sex and Gender Information Value Date Recorded Sex Assigned at Female 04/07/2021 2:32 PM CDT Legal Sex Female 10:33 AM REGIONAL FACILITIES MANAGER Gender Identity Female 04/07/2021 2:32 PM CDT Sexual Orientation Straight 04/07/2021 2: 32 PM CDT documented as of this encounter Plan of Treatment Not on file documented as of this encounter Visit Diagnoses Not on filedocumented in this encounter Additional Health Concerns Assessment Noted Time PHQ-9 Depression Total Score: 10 021 7:04 AM CDT documented as of this encounter Care Teams Digital Experience Manager Relationship Specialty Start Date End Date Mariel Galindo APRN CNP PCP - General Nurse Practitioner 08/13/14 06/08/22 No Ref-Primary, Physician PCP - General 06/09/22 06/02/23 Mariel Galindo APRN SCULPTURE CONSERVATOR Assigned PCP 10/21/14 04/10/22 Samia Silverman MD [address] [place] [address] Assigned OBGYN Provider 08/04/20 Mariel Galindo APRN SCULPTURE CONSERVATOR Assigned PCP 06/27/22 01/08/23 Nadege Jones APRN SCULPTURE CONSERVATOR [address] [place] [address] Assigned PCP 01/09/23 01/15/23 Mariel Galindo APRN SCULPTURE CONSERVATOR Assigned PCP 01/16/23 04/23/23 Nadege Jones APRN SCULPTURE CONSERVATOR [address] [place] [phone] Assigned PCP 04/24/23 10/06/23 Mateo, Mariel Stout APRN SCULPTURE CONSERVATOR Assigned PCP 10/07/23 11/04/23 Mateo, Mariel Stout APRN SCULPTURE CONSERVATOR Assigned PCP 11/05/23 12/03/23 Mateo, Mariel Stout APRN SCULPTURE CONSERVATOR Assigned PCP 12/04/23 01/03/24 Deja Mendez PA-C [address] [place] [phone] Assigned PCP 01/04/24 documented as of this encounter
--- OUTSIDE RECORDS SUMMARY | 2024-08-22 07:21 | XMS_ITS | Encounter Summary ---
Author Organization [facility] Address [address] [place] [address] Care Team Providers Care Molder Vacuum Name Role Phone MateoMariel meng APRN AUTOMOTIVE ELECTRICIAN Primary Care Provi adam Unavailable Mateo, Mariel Stout APRN AUTOMOTIVE ELECTRICIAN Unavailable Un available Mateo, Mariel Stout APRN AUTOMOTIVE ELECTRICIAN Unavailable Un available Samia Silverman MD Unavailable [phone] No Ref-Primary, Physician Primary Care Provider Mateo, Mariel Stout APRN AUTOMOTIVE ELECTRICIAN Unavailable Un available Nadege Jones APRN AUTOMOTIVE ELECTRICIAN Unavailable Mateo, Mariel Stout APRN AUTOMOTIVE ELECTRICIAN Unavailable Un available Nadege Jones APRN AUTOMOTIVE ELECTRICIAN Unavailable [phone] Mateo, Mariel Stout APRN AUTOMOTIVE ELECTRICIAN Unavailable Un available Mateo, Mariel Stout APRN AUTOMOTIVE ELECTRICIAN Unavailable Un available Mateo, Mariel Stout APRN AUTOMOTIVE ELECTRICIAN Unavailable Un available Deja Mendez PA-C Unavailable [phone] Encounter Details Date Type Department Care [...] CDT Legal Sex Female 10:33 AM BUSINESS SERVICES OFFICER Gender Identity Female 04/07/2021 2:32 PM CDT Sexual Orientation Straight 04/07/2021 2: 32 PM CDT documented as of this encounter Plan of Treatment Not on file documented as of this encounter Visit Diagnoses Not on filedocumented in this encounter Additional Health Concerns Assessment Noted Time PHQ-9 Depression Total Score: 12 017 7:21 AM BUSINESS SERVICES OFFICER documented as of this encounter Care Teams Molder Vacuum Relationship Specialty Start Date End Date Mariel Galindo APRN CNP PCP - General Nurse Practitioner 08/13/14 06/08/22 Mariel Galindo APRN CNP PCP - Assigned PCP 10/21/14 11/15/18 No Ref-Primary, Physician PCP - General 06/09/22 06/02/23 Mariel Galindo APRN CNP Assigned PCP 10/21/14 04/10/22 Samia Silverman MD [address] [address] Assigned OBGYN Provider 08/04/20 Mariel Galindo APRN CNP Assigned PCP 06/27/22 01/08/23 Nadege Jones APRN AUTOMOTIVE ELECTRICIAN [address] [place] [phone] Assigned PCP 01/09/23 01/15/23 Mariel Galindo APRN AUTOMOTIVE ELECTRICIAN Assigned PCP 01/16/23 04/23/23 Nadege Jones APRN CNP [address] [place] [phone] Assigned PCP 04/24/23 10/06/23 MateoMariel meng APRN AUTOMOTIVE ELECTRICIAN Assigned PCP 10/07/23 11/04/23 MateoMariel meng APRN AUTOMOTIVE ELECTRICIAN Assigned PCP 11/05/23 12/03/23 Mariel Galindo APRN AUTOMOTIVE ELECTRICIAN Assigned PCP 12/04/23 01/03/24 Deja Mendez PA-C [address] [place] [address] Assigned PCP 01/04/24 documented as of this encounter
--- OUTSIDE RECORDS SUMMARY | 2024-08-22 07:21 | XMS_ITS | Encounter Summary ---
Author Organization [facility] Address [address] [place] [address] Care Team Providers Care Jig Fitter Name Role Phone Mateo, Mariel Stout CHILDREN'S NURSERY ASSISTANT CORPORATE COMMUNICATIONS ASSOCIATE Primary Care Provi adam Unavailable Mateo, Mariel Stout CHILDREN'S NURSERY ASSISTANT CORPORATE COMMUNICATIONS ASSOCIATE Unavailable Un available Samia Silverman MD Unavailable [phone] No Ref-Primary, Physician Primary Care Provider Mateo, Mariel Stout APRN CORPORATE COMMUNICATIONS ASSOCIATE Unavailable Un available Nadege Jones APRN CORPORATE COMMUNICATIONS ASSOCIATE Unavailable Mateo, Mariel Stout APRN CORPORATE COMMUNICATIONS ASSOCIATE Unavailable Un available Nadege Jones APRN CORPORATE COMMUNICATIONS ASSOCIATE Unavailable Mateo, Mariel Stout APRN CORPORATE COMMUNICATIONS ASSOCIATE Unavailable Un available Mateo, Mariel Stout APRN CORPORATE COMMUNICATIONS ASSOCIATE Unavailable Un available MateoMariel APRN CORPORATE COMMUNICATIONS ASSOCIATE Unavailable Un available Deja Mendez PA-C Unavailable [phone] Encounter Details Date Type Department Care [...] Legal Sex Female 10:33 AM DIRECTOR OF MATH Gender Identity Female 04/07/2021 2:32 PM CDT [...] documented as of this encounter Care Teams Jig Fitter Relationship Specialty Start Date End Date Mariel Galindo APRN CNP PCP - General Nurse Practitioner 08/13/14 06/08/22 No Ref-Primary, Physician PCP - General 06/09/22 06/02/23 Mariel Galindo APRN CORPORATE COMMUNICATIONS ASSOCIATE Assigned PCP 10/21/14 04/10/22 Samia Sivlerman MD [address] [place] [address] Assigned OBGYN Provider 08/04/20 Mariel Galindo APRN CORPORATE COMMUNICATIONS ASSOCIATE Assigned PCP 06/27/22 01/08/23 Nadege Jones APRN CORPORATE COMMUNICATIONS ASSOCIATE [address] [place] [address] Assigned PCP 01/09/23 01/15/23 Mariel Galindo APRN CORPORATE COMMUNICATIONS ASSOCIATE Assigned PCP 01/16/23 04/23/23 Nadege Jones APRN CORPORATE COMMUNICATIONS ASSOCIATE [address] [place] [address] Assigned PCP 04/24/23 10/06/23 Mariel Galindo APRN CORPORATE COMMUNICATIONS ASSOCIATE Assigned PCP 10/07/23 11/04/23 MateoMariel meng APRN CORPORATE COMMUNICATIONS ASSOCIATE Assigned PCP 11/05/23 12/03/23 Mariel Galindo APRN CORPORATE COMMUNICATIONS ASSOCIATE Assigned PCP 12/04/23 01/03/24 Deja Mendez PA-C [address] [place] [address] Assigned PCP 01/04/24 documented as of this encounter
--- OUTSIDE RECORDS SUMMARY | 2024-08-22 07:21 | XMS_ITS | Encounter Summary ---
Author Organization [facility] Address [address] [place] [address] Care Team Providers Care Gauge And Weigh Machine Operator Name Role Phone Mateo, Mariel Stout APRN CHAIRMAN Primary Care Provi adam Unavailable Mateo, Mariel Stout APRN CHAIRMAN Unavailable Un available Samia Silverman MD Unavailable [phone] No Ref-Primary, Physician Primary Care Provider Mateo, Mariel Stout APRN CHAIRMAN Unavailable Un available Ndaege Jones APRN CHAIRMAN Unavailable [phone] Mateo, Mariel Stout APRN CHAIRMAN Unavailable Un available Nadege Jones APRN CHAIRMAN Unavailable [phone] Mateo, Mariel Stout APRN CHAIRMAN Unavailable Un available Mateo, Mariel Stout APRN CHAIRMAN Unavailable Un available Mateo, Mariel Stout APRN CHAIRMAN Unavailable Un available Deja Mendez PA-C Unavailable [phone] Reason for Visit * Reason Onset Date Comments Refill Request 06/20/2019 [facility] Encounter Details Date Type Department Care Team (Late st Contact Info) Description 06/20/2019 [facility] [address] [address] Mariel Galindo APRN CNP Refill Request (Earnest) [...] PM CDT Legal Sex Female 10:33 AM MUD TRUCKER Gender Identity Female 04/07/2021 2:32 PM CDT [...] for review/approval because: Drug not on the [facility] refill protocol TUNNELING MACHINE OPERATOR: .31. Annual Controlled substance agreement: 416 Annual [...] SHOULD BE DELETED.) Last Office Visit with [facility] primary care provider: 10/24/2018-Mariel Galindo Future Office [...] consultation, please call . Analysis performed by [employer], [employer], [place] [address] , No results found for: COMDAT, No results found for: THC13, PCP13, COC13, MAMP13, OPI13, AMP13, BZO13, TCA13, MTD13, BAR13, OXY13, PPX13, BUP13 Processing: Send Electronically to pharmacy [email or web address] TUNNELING MACHINE OPERATOR checked in past 3 months? No, route to RN documented in this encounter Plan of Treatment Not on file documented as of this encounter Visit Diagnoses Diagnosis ADHD (attention deficit hyperactivity disorder), combined type Attention deficit disorder with hyperactivity documented in this encounter Additional Health Concerns Assessment Noted Time PHQ-9 Depression Total Score: 13 019 7:06 AM MUD TRUCKER documented as of this encounter Care Teams Gauge And Weigh Machine Operator Relationship Specialty Start Date End Date Mariel Galindo APRN CHAIRMAN PCP - General Nurse Practitioner 08/13/14 06/08/22 No Ref-Primary, Physician PCP - General 06/09/22 06/02/23 Mariel Galindo APRN CHAIRMAN Assigned PCP 10/21/14 04/10/22 Samia Silverman MD [address] [place] [address] Assigned OBGYN Provider 08/04/20 Mateo, Mariel Stout APRN CHAIRMAN Assigned PCP 06/27/22 01/08/23 Nadege Jones APRN CHAIRMAN [address] [place] [phone] Assigned PCP 01/09/23 01/15/23 Mateo, Mariel Stout APRN CHAIRMAN Assigned PCP 01/16/23 04/23/23 Nadege Jones APRN CHAIRMAN [address] [place] [phone] Assigned PCP 04/24/23 10/06/23 Mateo, Mariel Stout APRN CHAIRMAN Assigned PCP 10/07/23 11/04/23 Mateo, Mariel Stout APRN CHAIRMAN Assigned PCP 11/05/23 12/03/23 Mateo, Mariel Stout APRN CHAIRMAN Assigned PCP 12/04/23 01/03/24 Deja Mendez PA-C [address] [place] [address] Assigned PCP 01/04/24 documented as of this encounter
--- OUTSIDE RECORDS SUMMARY | 2024-08-22 07:21 | XMS_ITS | Encounter Summary ---
Author Organization [facility] Address [address] [place] [address] Care Team Providers Care Fibreglass Gun Hand Name Role Phone Mateo, Mariel Stout APRN, CNP Primary Care Provi adam Unavailable Mateo, Mariel Stout APRN CNC ROUTER OPERATOR Unavailable Un available Samia Silverman MD Unavailable [phone] No Ref-Primary, Physician Primary Care Provider Mateo, Mariel Stout APRN CNC ROUTER OPERATOR Unavailable Un available Nadege Jones APRN CNC ROUTER OPERATOR Unavailable Mateo, Mariel Stout APRN CNC ROUTER OPERATOR Unavailable Un available Nadege Jones APRN CNC ROUTER OPERATOR Unavailable Mateo, Mariel Stout APRN CNC ROUTER OPERATOR Unavailable Un available Mateo, Mariel Stout APRN CNC ROUTER OPERATOR Unavailable Un available MateoMariel meng APRN CNC ROUTER OPERATOR Unavailable Un available Deja Mendez PA-C Unavailable [phone] Reason for Visit * Reason Onset Date Comments Refill Request 09/14/2019 Encounter Details Date Type Department Care Team (Late st Contact Info) Description 09/14/2019 [facility] [address] [address] Mariel Galindo APRN CNP Refill [...] PM CDT Legal Sex Female 10:33 AM SWEATBAND PERFORATOR Gender Identity Female 04/07/2021 2:32 PM CDT [...] Total Score: 9 07/28/20 19 8:28 AM SWEATBAND PERFORATOR documented as of this encounter Care Teams Fibreglass Gun Hand Relationship Specialty Start Date End Date Mariel Galindo APRN CNP PCP - General Nurse Practitioner 08/13/14 06/08/22 No Ref-Primary, Physician PCP - General 06/09/22 06/02/23 Mariel Galindo APRN CNP Assigned PCP 10/21/14 04/10/22 Samia Silverman MD [address] [place] [address] Assigned OBGYN Provider 08/04/20 Mariel Galindo APRN CNC ROUTER OPERATOR Assigned PCP 06/27/22 01/08/23 Nadege Jones APRN CNC ROUTER OPERATOR [address] [facility] [place] [address] Assigned PCP 01/09/23 01/15/23 Mariel Galindo APRN CNC ROUTER OPERATOR Assigned PCP 01/16/23 04/23/23 Nadege Jones APRN CNC ROUTER OPERATOR [address] [place] [address] Assigned PCP 04/24/23 10/06/23 MateoMariel meng APRN CNC ROUTER OPERATOR Assigned PCP 10/07/23 11/04/23 Mateo, Mariel Stout APRN CNC ROUTER OPERATOR Assigned PCP 11/05/23 12/03/23 Mateo, Mariel Stout APRN CNC ROUTER OPERATOR Assigned PCP 12/04/23 01/03/24 Deja Mendez PA-C [address] [place] [address] Assigned PCP 01/04/24 documented as of this encounter
--- OUTSIDE RECORDS SUMMARY | 2024-08-22 07:21 | XMS_ITS | Encounter Summary ---
Author Organization [facility] Address [address] [place] [address] Care Team Providers Care Medical Office Receptionist Assistant Name Role Phone Mateo, Mariel Stout APRN, CNP Primary Care Provi adam Unavailable Mateo, Mariel Stout APRN DRY CLEANING COUNTER CLERK Unavailable Un available Mateo, Mariel Stout APRN DRY CLEANING COUNTER CLERK Unavailable Un available Samia Silverman MD Unavailable [phone] No Ref-Primary, Physician Primary Care Provider Mateo, Mariel Stout APRN DRY CLEANING COUNTER CLERK Unavailable Un available Nadege Jones APRN DRY CLEANING COUNTER CLERK Unavailable Mateo, Mariel Stout APRN DRY CLEANING COUNTER CLERK Unavailable Un available Nadege Jones APRN DRY CLEANING COUNTER CLERK Unavailable Mateo, Mariel Stout APRN DRY CLEANING COUNTER CLERK Unavailable Un available Mateo, Mariel Stout APRN DRY CLEANING COUNTER CLERK Unavailable Un available Mateo, Mariel Stout APRN DRY CLEANING COUNTER CLERK Unavailable Un available Deja Mendez PA-C Unavailable [phone] Reason for Visit * Reason Comments Medication Refill FLUoxetine (PROZAC) 20 MG capsule Encounter Details Date Type Department Care Team (Late st Contact Info) Description 03/25/[address] [address] Mariel Galindo APRN CNP Medication [...] PM CDT Legal Sex Female 10:33 AM PAWN BROKER Gender Identity Female 04/07/2021 2:32 PM CDT [...] as of this encounter Care Teams Medical Office Receptionist Assistant Relationship Specialty Start Date End Date Mariel Galindo APRN CNP PCP - General Nurse Practitioner 08/13/14 06/08/22 Mariel Galindo APRN DRY CLEANING COUNTER CLERK PCP - Assigned PCP 10/21/14 11/15/18 No Ref-Primary, Physician PCP - General 06/09/22 06/02/23 Mariel Galindo APRN CNP Assigned PCP 10/21/14 04/10/22 Samia Silverman MD [address] [place] [id number] Assigned OBGYN Provider 08/04/20 Mariel Galindo APRN DRY CLEANING COUNTER CLERK Assigned PCP 06/27/22 01/08/23 Nadege Jones APRN CNP [address] [facility] [place] [address] Assigned PCP 01/09/23 01/15/23 Mariel Galindo APRN DRY CLEANING COUNTER CLERK Assigned PCP 01/16/23 04/23/23 Nadege Jones APRN DRY CLEANING COUNTER CLERK [address] [place] [address] Assigned PCP 04/24/23 10/06/23 Mariel Galindo APRN CNP Assigned PCP 10/07/23 11/04/23 Mariel Galindo APRN DRY CLEANING COUNTER CLERK Assigned PCP 11/05/23 12/03/23 Mariel Galindo, WARREN DRY CLEANING COUNTER CLERK Assigned PCP 12/04/23 01/03/24 Deja Mendez PA-C [address] [place] [address] Assigned PCP 01/04/24 documented as of this encounter
--- OUTSIDE RECORDS SUMMARY | 2024-08-22 07:21 | XMS_ITS | Encounter Summary ---
Author Organization [facility] Address [address] [place] [address] Care Team Providers Care Shirt Ironer Supervisor Name Role Phone Mateo, Mariel Stout APRN, CNP Primary Care Provi adam Unavailable Mateo, Mariel Stout APRN SCADA OPERATOR Unavailable Un available Samia Silverman MD Unavailable [phone] No Ref-Primary, Physician Primary Care Provider Mateo, Mariel Stout APRN SCADA OPERATOR Unavailable Un available Nadege Jones APRN SCADA OPERATOR Unavailable [phone] Mateo, Mariel Stout APRN SCADA OPERATOR Unavailable Un available Nadege Jones APRN SCADA OPERATOR Unavailable [phone] Mateo, Mariel Stout APRN SCADA OPERATOR Unavailable Un available Mateo, Mariel Stout APRN SCADA OPERATOR Unavailable Un available MateoMariel meng APRN SCADA OPERATOR Unavailable Un available Deja Mendez PA-C Unavailable [phone] Reason for Visit * Reason Comments Medication Refill Encounter Details Date Type Department Care Team (Late st Contact Info) Description 02/02/[address] [address] Mariel Galindo APRN CNP Medication Refill Social History Tobacco Use Types Packs/Day Years Used Date Smoking Tobacco: Never Smokeless Tobacco: Never Alcohol Use Standard Drinks/Week Comments Not Currently 0 (1 standard drink = 0.6 oz pur e alcohol) wine occasionally PHQ-2 Answer Date Recorded PHQ-2 Score 3 12/23/2020 [place] Depression Scale Answer Date Recorded [place] Depression Score 16 12/04/2020 Last EPDS Self Harm Result Not on file 12/04 Comments No Sex and Gender Information Value Date Recorded Sex Assigned at Female 04/07/2021 2:32 PM CDT Legal Sex Female 10:33 AM ENERGY AND SUSTAINABILITY MANAGER Gender Identity Female 04/07/2021 2:32 PM CDT Sexual Orientation Straight 04/07/2021 2: 32 PM CDT documented as of this encounter Miscellaneous Notes * Telephone Encounter - Marcela Benedict RN - 02/04/2021 2:19 PM CDT Routing refill request to provider for review/approval because: Elevated PHQ-9 Marcela Benedict RN [facility] -- Triage Nurse documented in this encounter Plan of Treatment Not on file documented as of this encounter Visit Diagnoses Diagnosis Moderate major depression (H) Major depressive disorder, single episode, moderate documented in this encounter Additional Health Concerns Assessment Noted Time PHQ-9 Depression Total Score: 17 021 1:27 PM CDT documented as of this encounter Care Teams Shirt Ironer Supervisor Relationship Specialty Start Date End Date Mariel Galindo APRN SCADA OPERATOR PCP - General Nurse Practitioner 08/13/14 06/08/22 No Ref-Primary, Physician PCP - General 06/09/22 06/02/23 Mariel Galindo APRN SCADA OPERATOR Assigned PCP 10/21/14 04/10/22 Samia Silverman MD [address] [address] Assigned OBGYN Provider 08/04/20 Mariel Galindo APRN CNP Assigned PCP 06/27/22 01/08/23 Nadege Jones APRN SCADA OPERATOR [address] [place], [place] [phone] Assigned PCP 01/09/23 01/15/23 Mateo, Mariel Stout APRN SCADA OPERATOR Assigned PCP 01/16/23 04/23/23 Nadege Jones APRN SCADA OPERATOR [address] [place], [place] [phone] Assigned PCP 04/24/23 10/06/23 Mateo, Mariel Stout APRN SCADA OPERATOR Assigned PCP 10/07/23 11/04/23 Mateo, Mariel Stout APRN SCADA OPERATOR Assigned PCP 11/05/23 12/03/23 Mateo, Mariel Stout APRN SCADA OPERATOR Assigned PCP 12/04/23 01/03/24 Deja Mendez PA-C [address] [place] [address] Assigned PCP 01/04/24 documented as of this encounter
--- OUTSIDE RECORDS SUMMARY | 2024-08-22 07:21 | XMS_ITS | Encounter Summary ---
Author Organization [facility] Address [address] [place] [address] Care Team Providers Care Digital Sales Manager Name Role Phone Mateo, Mariel Stout SERVICE LINE BUS CLEANER AUTOMOTIVE MACHINIST APPRENTICE Primary Care Provi adam Unavailable Mateo, Mariel Stout SERVICE LINE BUS CLEANER AUTOMOTIVE MACHINIST APPRENTICE Unavailable Un available Samia Silverman MD Unavailable No Ref-Primary, Physician Primary Care Provider Mateo, Mariel Stout SERVICE LINE BUS CLEANER AUTOMOTIVE MACHINIST APPRENTICE Unavailable Un available Nadege Jones APRN AUTOMOTIVE MACHINIST APPRENTICE Unavailable [phone] Mateo, Mariel Argelia SERVICE LINE BUS CLEANER AUTOMOTIVE MACHINIST APPRENTICE Unavailable Un available Nadege Jones APRN AUTOMOTIVE MACHINIST APPRENTICE Unavailable [phone] Mateo, Mariel Stout APRN AUTOMOTIVE MACHINIST APPRENTICE Unavailable Un available Mateo, Mariel Stout APRN AUTOMOTIVE MACHINIST APPRENTICE Unavailable Un available Mateo, Mariel Stout APRN AUTOMOTIVE MACHINIST APPRENTICE Unavailable Un available Deja Mendez PA-C Unavailable [phone] Encounter Details Date Type Department Care Team (Late st Contact Info) Description 09/16/2020 [facility] Medical Advice [address] [address] Sheyla Cespedes, TEST RACK OPERATOR Social History Tobacco Use Types Packs/Day Years Used Date Smoking Tobacco: Never Smokeless Tobacco: Never Alcohol Use Standard Drinks/Week Comments Yes 0 (1 standard drink = 0.6 oz pur e alcohol) wine occasionally PHQ-2 Answer Date Recorded PHQ-2 Score 2 07/28/2019 Comments Yes Sex and Gender Information Value Date Recorded Sex Assigned at Female 04/07/2021 2:32 PM CDT Legal Sex Female 10:33 AM MARRIAGE COUNSELOR MINISTER Gender Identity Female 04/07/2021 2:32 PM CDT Sexual Orientation Straight 04/07/2021 2 :32 PM CDT documented as of this encounter Plan of Treatment Not on file documented as of this encounter Visit Diagnoses Not on filedocumented in this encounter Additional Health Concerns Assessment Noted Time PHQ-9 Depression Total Score: 10 020 2:27 PM CDT documented as of this encounter Care Teams Digital Sales Manager Relationship Specialty Start Date End Date Mariel Galindo APRN CNP PCP - General Nurse Practitioner 08/13/14 06/08/22 No Ref-Primary, Physician PCP - General 06/09/22 06/02/23 Mariel Galindo APRN CNP Assigned PCP 10/21/14 04/10/22 Samia Silverman MD [address] [id number] Assigned OBGYN Provider 08/04/20 Mariel Galindo APRN AUTOMOTIVE MACHINIST APPRENTICE Assigned PCP 06/27/22 01/08/23 Nadege Jones APRN AUTOMOTIVE MACHINIST APPRENTICE [address] [place] [phone] Assigned PCP 01/09/23 01/15/23 Mariel Galindo APRN AUTOMOTIVE MACHINIST APPRENTICE Assigned PCP 01/16/23 04/23/23 Nadege Jones APRN AUTOMOTIVE MACHINIST APPRENTICE [address] [place] [address] Assigned PCP 04/24/23 10/06/23 MateoMariel meng APRN AUTOMOTIVE MACHINIST APPRENTICE Assigned PCP 10/07/23 11/04/23 MateoMariel meng APRN AUTOMOTIVE MACHINIST APPRENTICE Assigned PCP 11/05/23 12/03/23 MateoMariel meng APRN AUTOMOTIVE MACHINIST APPRENTICE Assigned PCP 12/04/23 01/03/24 Deja Mendez PA-C [address] [place] [phone] Assigned PCP 01/04/24 documented as of this encounter
--- OUTSIDE RECORDS SUMMARY | 2024-08-22 07:21 | XMS_ITS | Encounter Summary ---
Author Organization [facility] Address [address] [place] [address] Care Team Providers Care Cannon Crewmember Name Role Phone Mariel Galindo APRN, CNP Primary Care Provi adam Unavailable Mateo, Mariel Stout APRN SCIENTIST IMMUNOLOGY Unavailable Un available Samia Silverman MD Unavailable [phone] No Ref-Primary, Physician Primary Care Provider Mateo, Mariel Stout APRN SCIENTIST IMMUNOLOGY Unavailable Un available Nadege Jones APRN SCIENTIST IMMUNOLOGY Unavailable Mateo, Mariel Sotut APRN SCIENTIST IMMUNOLOGY Unavailable Un available Nadege Jones APRN SCIENTIST IMMUNOLOGY Unavailable Mateo, Mariel Stout APRN SCIENTIST IMMUNOLOGY Unavailable Un available Mateo, Mariel Stout APRN SCIENTIST IMMUNOLOGY Unavailable Un available MateoMariel meng APRN SCIENTIST IMMUNOLOGY Unavailable Un available Deja Mendez PA-C Unavailable Reason for Visit * Reason Onset Date Comments Refill Request 06/06/2021 Encounter Details Date Type Department Care Team (Late st Contact Info) Description 06/06/2021 [facility] [address] [address] Mariel Galindo APRN CNP Refill Request Social History Tobacco Use Types Packs/Day Years Used Date Smoking Tobacco: Never Smokeless Tobacco: Never Alcohol Use Standard Drinks/Week Comments Not Currently 0 (1 standard drink = 0.6 oz pur e alcohol) wine occasionally PHQ-2 Answer Date Recorded PHQ-2 Total Score (Adult) - Positive if 3 or more points; Administer PHQ-9 if positive 0 04/07/2021 [place] Depression Scale Answer Date Recorded [place] Depression Score 16 12/04/2020 Last EPDS Self Harm Result Not on file 12/04 Comments No Sex and Gender Information Value Date Recorded Sex Assigned at Female 04/07/2021 2:32 PM CDT Legal Sex Female 10:33 AM CRM MANAGER Gender Identity Female 04/07/2021 2:32 PM [...] documented as of this encounter Care Teams Cannon Crewmember Relationship Specialty Start Date End Date Mariel Galindo APRN SCIENTIST IMMUNOLOGY PCP - General Nurse Practitioner 08/13/14 06/08/22 No Ref-Primary, Physician PCP - General 06/09/22 06/02/23 Mariel Galindo APRN SCIENTIST IMMUNOLOGY Assigned PCP 10/21/14 04/10/22 Samia Silverman MD [address] [address] Assigned OBGYN Provider 08/04/20 Mateo, Mariel Stout APRN SCIENTIST IMMUNOLOGY Assigned PCP 06/27/22 01/08/23 Nadege Jones APRN SCIENTIST IMMUNOLOGY [address] [place], [place] [phone] Assigned PCP 01/09/23 01/15/23 Mateo, Mariel Stout APRN SCIENTIST IMMUNOLOGY Assigned PCP 01/16/23 04/23/23 Nadege Jones APRN SCIENTIST IMMUNOLOGY [address] [place], [place] [phone] Assigned PCP 04/24/23 10/06/23 Mateo, Mariel Stout APRN SCIENTIST IMMUNOLOGY Assigned PCP 10/07/23 11/04/23 Mateo, Mariel Stout APRN SCIENTIST IMMUNOLOGY Assigned PCP 11/05/23 12/03/23 Mateo, Mariel Stout APRN SCIENTIST IMMUNOLOGY Assigned PCP 12/04/23 01/03/24 Deja Mendez PA-C [address] [place] [address] Assigned PCP 01/04/24 documented as of this encounter
--- OUTSIDE RECORDS SUMMARY | 2024-08-22 07:21 | XMS_ITS | Encounter Summary ---
Author Organization [facility] Address [address] [place] [address]. [place] [address] Care Team Providers Care Manager Business Continuity Name Role Phone Mateo, Mariel Stout OIL AND GAS FIELD TECHNICIAN ACCOUNT GROUP SUPERVISOR Primary Care Provi adam Unavailable Mateo, Mariel Stout OIL AND GAS FIELD TECHNICIAN ACCOUNT GROUP SUPERVISOR Unavailable Un available Samia Silverman MD Unavailable [phone] No Ref-Primary, Physician Primary Care Provider Mateo, Mariel Stout OIL AND GAS FIELD TECHNICIAN ACCOUNT GROUP SUPERVISOR Unavailable Un available Nadege Jones APRN ACCOUNT GROUP SUPERVISOR Unavailable Mateo, Mariel Argelia OIL AND GAS FIELD TECHNICIAN ACCOUNT GROUP SUPERVISOR Unavailable Un available Nadege Jones APRN ACCOUNT GROUP SUPERVISOR Unavailable [phone] Mateo, Mariel Stout APRN ACCOUNT GROUP SUPERVISOR Unavailable Un available Mateo, Mariel Stout APRN ACCOUNT GROUP SUPERVISOR Unavailable Un available Mateo, Mariel Stout APRN ACCOUNT GROUP SUPERVISOR Unavailable Un available Deja Mendez PA-C Unavailable [phone] Encounter Details Date Type Department Care Team (Late st Contact Info) Description 09/27/2019 [facility] [address] [place] [address] Mimi Sun Social History Tobacco [...] PM CDT Legal Sex Female 10:33 AM FINANCIAL PLANNING CONSULTANT Gender Identity Female 04/07/2021 2:32 PM CDT Sexual Orientation Straight 04/07/2021 2: 32 PM CDT documented as of this encounter Plan of Treatment Not on file documented as of this encounter Visit Diagnoses Not on filedocumented in this encounter Additional Health Concerns Assessment Noted Time PHQ-9 Depression Total Score: 9 07/28/20 19 8:28 AM FINANCIAL PLANNING CONSULTANT documented as of this encounter Care Teams Manager Business Continuity Relationship Specialty Start Date End Date Mariel Galindo APRN CNP PCP - General Nurse Practitioner 08/13/14 06/08/22 No Ref-Primary, Physician PCP - General 06/09/22 06/02/23 Mariel Galindo APRN ACCOUNT GROUP SUPERVISOR Assigned PCP 10/21/14 04/10/22 Samia Silverman MD [address] [address] Assigned OBGYN Provider 08/04/20 Mariel Galindo APRN ACCOUNT GROUP SUPERVISOR Assigned PCP 06/27/22 01/08/23 Nadege Jones APRN ACCOUNT GROUP SUPERVISOR [address] [place] [phone] Assigned PCP 01/09/23 01/15/23 Mariel Galindo APRN ACCOUNT GROUP SUPERVISOR Assigned PCP 01/16/23 04/23/23 Nadege Jones APRN ACCOUNT GROUP SUPERVISOR [address] [place] [phone] Assigned PCP 04/24/23 10/06/23 MateoMariel meng APRN ACCOUNT GROUP SUPERVISOR Assigned PCP 10/07/23 11/04/23 MateoMariel mneg APRN ACCOUNT GROUP SUPERVISOR Assigned PCP 11/05/23 12/03/23 MateoMariel meng APRN ACCOUNT GROUP SUPERVISOR Assigned PCP 12/04/23 01/03/24 Deja Mendez PA-C [address] [place] [address] Assigned PCP 01/04/24 documented as of this encounter
--- OUTSIDE RECORDS SUMMARY | 2024-08-22 07:21 | XMS_ITS | Encounter Summary ---
Author Organization [facility] Address [address] [place] [address] Care Team Providers Care Micrographics Services Supervisor Name Role Phone Mariel Galindo APRN, CNP Primary Care Provi adam Unavailable Mateo, Mariel Stout APRN CULINARY ASSISTANT Unavailable Un available Samia Silverman MD Unavailable [phone] No Ref-Primary, Physician Primary Care Provider Mateo, Mariel Stout APRN CULINARY ASSISTANT Unavailable Un available Nadege Jones APRN CULINARY ASSISTANT Unavailable [phone] Mateo, Mariel Stout APRN CULINARY ASSISTANT Unavailable Un available Nadege Jones APRN CULINARY ASSISTANT Unavailable Mateo, Mariel Stout APRN CULINARY ASSISTANT Unavailable Un available Mateo, Mariel Stout APRN CULINARY ASSISTANT Unavailable Un available AmteoMariel meng APRN CULINARY ASSISTANT Unavailable Un available Deja Mendez PA-C Unavailable Reason for Visit * Reason Onset Date Comments Refill Request 10/09/2021 Encounter Details Date Type Department Care Team (Late st Contact Info) Description 10/09/2021 [facility] [address] [address] Mariel Galindo APRN CNP Refill Request Social History Tobacco Use Types Packs/Day Years Used Date Smoking Tobacco: Never Smokeless Tobacco: Never Alcohol Use Standard Drinks/Week Comments Not Currently 0 (1 standard drink = 0.6 oz pur e alcohol) wine occasionally PHQ-2 Answer Date Recorded PHQ-2 Total Score (Adult) - Positive if 3 or more points; Administer PHQ-9 if positive 2 07/09/2021 [place] Depression Scale Answer Date Recorded [place] Depression Score 16 12/04/2020 Last EPDS Self Harm Result Not on file 12/04 Comments No Sex and Gender Information Value Date Recorded Sex Assigned at Female 04/07/2021 2:32 PM CDT Legal Sex Female 10:33 AM NETWORK SECURITY ADMINISTRATOR Gender Identity Female 04/07/2021 2:32 PM CDT Sexual Orientation Straight 04/07/2021 2: 32 PM CDT documented as of this encounter Miscellaneous Notes * Telephone Encounter - Mariel Pedersen RN - 10/09/2021 8:54 AM CST Routing refill request to provider for review/approval because: Drug not on the G refill protocol Mariel Pedersen RN on 10/09/2021 at 8:54 AM ORK SECURITY ADMINISTRATOR documented in this encounter Plan of Treatment Not on file documented as of this encounter Visit Diagnoses Diagnosis ADHD (attention deficit hyperactivity disorder), combined type Attention deficit disorder with hyperactivity documented in this encounter Additional Health Concerns Assessment Noted Time PHQ-9 Depression Total Score: 12 021 7:02 AM CDT documented as of this encounter Care Teams Micrographics Services Supervisor Relationship Specialty Start Date End Date Mariel Galindo APRN CULINARY ASSISTANT PCP - General Nurse Practitioner 08/13/14 06/08/22 No Ref-Primary, Physician PCP - General 06/09/22 06/02/23 Mariel Galindo APRN CNP Assigned PCP 10/21/14 04/10/22 Samia Silverman MD [address] [address] Assigned OBGYN Provider 08/04/20 Mateo, Mariel Stout APRN CULINARY ASSISTANT Assigned PCP 06/27/22 01/08/23 Nadege Jones APRN CULINARY ASSISTANT [address], [place] [phone] Assigned PCP 01/09/23 01/15/23 Mateo, Mariel Stout APRN CULINARY ASSISTANT Assigned PCP 01/16/23 04/23/23 Nadege Jones APRN CULINARY ASSISTANT [address], [place] [phone] Assigned PCP 04/24/23 10/06/23 Mateo, Mariel Stout APRN CULINARY ASSISTANT Assigned PCP 10/07/23 11/04/23 Mateo, Mariel Stout APRN CULINARY ASSISTANT Assigned PCP 11/05/23 12/03/23 Mateo, Mariel Stout APRN CULINARY ASSISTANT Assigned PCP 12/04/23 01/03/24 Deja Mendez PA-C [address] [place] [address] Assigned PCP 01/04/24 documented as of this encounter
--- OUTSIDE RECORDS SUMMARY | 2024-08-22 07:21 | XMS_ITS | Encounter Summary ---
Author Organization [facility] Address [address] [place] [address] Care Team Providers Care Director Of Assessment Name Role Phone Mateo, Mariel Stout APRN, CNP Primary Care Provi adam Unavailable Mateo, Mariel Stout APRN MOBILE PHONE SALESPERSON Unavailable Un available Samia Silverman MD Unavailable [phone] No Ref-Primary, Physician Primary Care Provider Mateo, Mariel Stout APRN MOBILE PHONE SALESPERSON Unavailable Un available Nadege Jones APRN MOBILE PHONE SALESPERSON Unavailable Mateo, Mariel Stout APRN MOBILE PHONE SALESPERSON Unavailable Un available Nadege Jones APRN MOBILE PHONE SALESPERSON Unavailable [phone] Mateo, Mariel Stout APRN MOBILE PHONE SALESPERSON Unavailable Un available Mateo, Mariel Stout APRN MOBILE PHONE SALESPERSON Unavailable Un available MateoMariel meng APRN MOBILE PHONE SALESPERSON Unavailable Un available Deja Mednez PA-C Unavailable [phone] Reason for Visit * Reason Onset Date Comments Refill Request 03/06/2021 Encounter Details Date Type Department Care Team (Late st Contact Info) Description 03/06/2021 [facility] [address] [address] Mariel Galindo APRN CNP Refill Request Social History Tobacco Use Types Packs/Day Years Used Date Smoking Tobacco: Never Smokeless Tobacco: Never Alcohol Use Standard Drinks/Week Comments Not Currently 0 (1 standard drink = 0.6 oz pur e alcohol) wine occasionally PHQ-2 Answer Date Recorded PHQ-2 Total Score (Adult) - Positive if 3 or more points; Administer PHQ-9 if positive 0 03/06/2021 [place] Depression Scale Answer Date Recorded [place] Depression Score 16 12/04/2020 Last EPDS Self Harm Result Not on file 12/04 Comments No Sex and Gender Information Value Date Recorded Sex Assigned at Female 04/07/2021 2:32 PM CDT Legal Sex Female 10:33 AM DRIER UNLOADER Gender Identity Female 04/07/2021 2:32 PM CDT [...] of this encounter Care Teams Director Of Assessment Relationship Specialty Start Date End Date Mariel Galindo APRN MOBILE PHONE SALESPERSON PCP - General Nurse Practitioner 08/13/14 06/08/22 No Ref-Primary, Physician PCP - General 06/09/22 06/02/23 Mateo, Mariel Stout APRN MOBILE PHONE SALESPERSON Assigned PCP 10/21/14 04/10/22 Samia Silverman MD [address] [place] [address] Assigned OBGYN Provider 08/04/20 Mateo, Mariel Stout APRN MOBILE PHONE SALESPERSON Assigned PCP 06/27/22 01/08/23 Nadege Jones APRN MOBILE PHONE SALESPERSON [address] [place] [phone] Assigned PCP 01/09/23 01/15/23 Mateo, Mariel Stout APRN MOBILE PHONE SALESPERSON Assigned PCP 01/16/23 04/23/23 Nadege Jones APRN MOBILE PHONE SALESPERSON [address] [place] [phone] Assigned PCP 04/24/23 10/06/23 Mateo, Mariel Stout APRN MOBILE PHONE SALESPERSON Assigned PCP 10/07/23 11/04/23 Mateo, Mariel Stout APRN MOBILE PHONE SALESPERSON Assigned PCP 11/05/23 12/03/23 Mateo, Mariel Stout APRN MOBILE PHONE SALESPERSON Assigned PCP 12/04/23 01/03/24 Deja Mendez PA-C [address] [place] [address] Assigned PCP 01/04/24 documented as of this encounter
--- OUTSIDE RECORDS SUMMARY | 2024-08-22 07:21 | XMS_ITS | Data Portability ---
Author Organization [facility] - Premriya ENROLLMENT REPRESENTATIVE, [id number] Address [address] [place] [address] Assessment No assessment recorded. Plan of Treatment Reminders Order Date Submit Date Provider Last Modified By Organization Details Last Modified Time Details Appointments None recorded. Lab hemoglobin (Hb), fingerstick , blood 2020 021 eamon [id number] _[place] , [address] [facility], [address], [place], [address], 17:16:48 unlisted lab - group B strep by PCR (OB patients) 2020 [facility], [address] [place] [address], [address], 12:42:00 Referral None recorded. Procedures None recorded. Surgeries None recorded. Imaging US, obstetric, biophysical profile 2020 021 [email or web address] [id number] le_[facility], [address], [address], [place], [address], 18:52:27 US, obstetric, biophysical profile 2020 021 [place] [id number] [facility], [address], [address], [place], [address], 14:23:32 Medication Orders None recorded. Patient TargetsNo targets recorded. Patient InstructionsNo instructions recorded. Reason for Referral None Reported. Results Created Date Observation Date Name Description Value Unit Range Abnormal Flag Note LastModifiedBy Organization Detail LastModifiedTime 11/25/2020 hemog lobdheeraj (Hb), srinivasa rstic k, blood fingerstick hemoglobin 9.5 g/dL 12.0-1 5.0 Not Available [id number] le[facility] [address] [facility] [address], [place], [address], 11/25/2020 16:56:31 11/26/1911/25/2020 strep tococ cus group B DNA group B strep by PCR No Group B Strept ococcu s detect ed by PCR. no group B strept ococcu s detect ed by PCR. Not Available [facility] [address] [place], [address], 11/27/2020 12:42:00 11/04/19 21 US, obste tric, follo w-up No observ ation record ed. [email or web address] [address], [place], [address], 11/04/2020 15:03:03 11/27/19 21 US, obste tric, bioph ysica l profi le No observ ation record ed. [email or web address] [address], [place], [address], 12/02/2020 10:38:41 12/04/19 21 US, obste tric, bioph ysica l profi le No observ ation record ed. [email or web address] [address], [place], [address], 12/04/2020 10:55:17 Result Notes None recorded. Problems Name Problem SNOMED Code Status Onset Date Resolution Date Notes Provider Name and Address Organization Details Recorded Time Pregnanc y 77021616 Completed 201912/26/2020 Anupama tristan, [place] - [place] ENROLLMENT REPRESENTATIVE 1 12:47:15 Advanced maternal age 519040261 Completed level II Anupama rios null, [place] - [place] ENROLLMENT REPRESENTATIVE 1 12:47:10 Depressi on screenin g Completed 2020 PHQ9: 16, GAD7: 19 @ 28 week visit, disc, declines meds. Desires to restart postpartu m Anupama rios null, [place] - [place] ENROLLMENT REPRESENTATIVE 12:47:10 Problem Notes None recorded. Procedures Surgical History Date Name Laterality Status Provider Name and Address Organization Details Recorded Time 0 Date of Last Pap Smear completed Inés Leach [facility] ENROLLMENT REPRESENTATIVE 2020 17:26:50 colposcopy of cervix completed Not Available [facility] 04/22/2020 01:04:46 Imaging Results Imaging Date Name Status LastModified by Organiz ation Details LastModified Time 11/04/2020 US, obstetric, follow-up completed [email or web address] [address], [place], [address], 11/04/2020 15:03:03 11/26/2020 US, obstetric, biophysical profile completed [email or web address] [address], [place], [address], 12/02/2020 10:38:41 12/03/2020 US, obstetric, biophysical profile completed [email or web address] [address], [place], [address], 12/04/2020 10:55:17 Procedure Notes None recorded. Medical [...] Updated DateTime 11/25/2020 165.1 cm 32.8 kg/m2 20687.13 3838 g 112 mm[Hg] 72 mm[Hg] Deya Adams (TERMED) [facility] ENROLLMENT REPRESENTATIVE 16:56:19 Date Recorded Body height Body mass index (BMI) Systolic blood pressure Diastolic blood pressure Provider Name and Address Organization Details Last Updated DateTime 11/26/2020 165.1 cm 33.3 kg/m2 102 mm[Hg] 70 mm[Hg] Yen Seth [facility] ENROLLMENT REPRESENTATIVE 11/26/2020 14:38:15 Date Recorded Body weight Provider Name an d Address Organization Details Last Updated DateTime 11/26/2020 12308.854792 [place] [address] [facility],[address], [place], [address], [facility] ENROLLMENT REPRESENTATIVE 11/28/2020 10:14:32 Date Recorded Body weight Systolic blood pressure Diastolic blood pressure Provider Name and Address Organization Details Last Updated DateTime 12/03/2020 19143.474 g 110 mm[Hg] 70 mm[Hg] Norma Cabrera (TERMED) [facility] ENROLLMENT REPRESENTATIVE 12/03/2020 12:25:27 Social History Question Answer Notes [...] Violence Information not available 04/22/2020 Marital Status [place] [phone] Information not available 04/22/2020 Sex: Unknown Functional Status None recorded. Mental Status None recorded. Family History Nothing Reported. Medical History Condition Response Neurology- Memory Loss/Dementia N Neurology- Stroke/TIA N Dermatology-Acne N Rheumatology- Fibromyalgia/Chronic Pain N Cancer- Genetic Screening N Endocrinology- Vitamin [...] N Rheumatology- Arthritis N GI- Hemorrhoids N Neurology-Other N ID- Rheumatic Fever N Hematology- Blood Clotting Disorder/Fact or V Leiden N Ortho- Degenerative Joint Disease N Cardiology-Other N Hematology- Bleeding Disorder N Endocrinology- Osteoporosis N Psych- Depression N Hematology-Other N Ortho-Chronic Back Pain N ID- Tuberculosis/Positive PPD N Dermatology-Other N Dermatology-Eczema/Psoriasis N ID- HIV N Cardiology- High Cholesterol N Cardiac- Mitral Valve Prolapse N Cancer- Ovary N ID- Chicken Pox/Shingles N Cardiology- Heart Arrhythmia N Urology- Kidney or Bladder Problems N Psych- Mental Disorder N Endocrinology- Hyperthyroidism N Endocrinology- Thyroid Problems N Cancer- Breast N Psych- ADD N GI- Liver Disease/Hepatitis N Weight Management/Obesity N Cancer- Colon N ENT- Hearing Loss N Hematology- Blood Transfusion N Cancer- Vulvar N Cancer- Vaginal N GI-Other N Neurology- Headaches/Migraines N Endocrinology- Diabetes N Cancer- Cervical N Pulmonary- COPD/Emphysema N GI- Vitamin Deficiency N GI- Crohn's/Ulcerative Colitis N Endocrinology- History of Gestational Di abetes N Psych- Bipolar Disease N ENT- Seasonal Allergies/Allergic Rhiniti s N Cardiology- High Blood Pressure N Cancer- Lung N Cancer- Endometrial/Uterine N Eyes- Glaucoma N Eyes- Vision Loss/Macular Degeneration N ENT-Other N Rheumatology-Other N Cardiac- Aneurysm N Urology- [...] Vaccine Type Date Status Provider Name a az Address Organization Details Recorded Time Tdap 05/13/2015 completed Not Available [facility] 01:10:22 Tdap 07/23/2016 completed Not Available [facility] 01:10:23 Tdap 10/22/2020 completed MERVIN AUST[place], [address] [facility],[address], [place], [address], [facility] ENROLLMENT REPRESENTATIVE 10/22/2020 18:06:11 Past Encounters Encounter ID Performer Location Encounter Start Date Encounter Closed Date Diagnosis/Indication Diagnosis SNOMED-CT Code Diagnosis ICD10 Code [id number] MERVIN AUSTIN DO [id number] ,[facility] [address] [facility] [address] 05/14/2020 14:44:49 05/14/2020 15:30:23 Past history of miscarriage 283926635 Z87.59 [id number] MERVIN AUSTIN DO [id number] [address] ,[address] [place] [address] 05/14/2020 15:08:40 05/15/2020 08:36:36 Gynecologic examination 16144256 Z01.419 84204929 Z33.1 Hypothyroidism 84940611 E03.9 Advanced m aternal age 130705092 O09.458 [id number] MERVIN AUSTIN, DO [address] [facility] ,[address] [place] [address] 06/24/2020 17:13:25 06/25/2020 08:00:24 [id number] MERVIN AUSTIN, DO [address] [facility] ,[address] [place] [address] 08/20/2020 17:13:53 08/20/2020 17:41:37 Hypothyroidism in 296343663 E03.9 [id number] ALIDA NOONAN, [address] [facility] ,[address] [place] [address] 09/23/2020 12:18:42 09/23/2020 12:47:09 Gestation period, 28 weeks 09436601 Z3A.28 screening 2437 84279 Z36.89 [id number] MERVIN AUSTIN, DO [address] [facility] ,[address] [place] [address] 10/08/2020 16:55:23 10/09/2020 09:02:08 [id number] MERVIN AUSTIN, DO [address] ,[address] [place] [address] 10/22/2020 16:57:54 10/22/2020 17:50:54 Routine care 886787498 Z34.83 [id number] JOSE SEPULVEDA MD [address] [facility] ,[address] [place] [address] 11/04/2020 10:32:08 11/04/2020 11:18:33 Multigravida of advanced maternal age 713758454 O09.636 [id number] MERVIN AUSTIN, DO [id number] [address] ,[address] [place] [address] 11/04/2020 10:52:39 11/04/2020 11:52:35 [id number] MERVIN AUSTIN, DO [id number] [address] ,[address] [place] [address] 11/25/2020 16:46:50 11/25/2020 17:15:57 [id number] Z33.1 [id number] OCTAVIO SAGASTUME MD [address] ,[address] [place] [address] 11/26/2020 12:00:12 11/26/2020 12:30:01 movement activity - finding 794071035 Z34.03 [id number] MERVIN AUSTIN, DO [id number] [address] ,[address] [place] [address] 11/26/2020 14:35:25 11/26/2020 15:39:41 [id number] SAMMI RIOS MD [id number] [address] ,[address] [place] [address] 12/03/2020 12:06:38 12/03/2020 12:53:29 Reduced movement 316667651 O36.8199 [id number] MERVIN AUSTIN, DO [address] ,[address] [place] [address] 12/03/2020 12:18:59 12/03/2020 13:26:24 Health Concerns Section Related Observation LastModified by Organization Detai ls LastModified Time None Recorded Concern Status LastModified by Organization Details LastModified Time None Recorded Advance Directives Directive None Recorded Payers Encounter Date Sequence Insurance Name Policy Number Policy Doss Covered Member ID Doss Member ID Guarantor Name 11/25/2020 1 [facility] [id number] Mayito Maravillanos [id number] Madeline Maravillanos 11/26/2020 1 [facility] [id number] Mayito Maravillanos [id number] Madeline Maravillanos 11/26/2020 1 [facility] [id number] Mayito Maravillanos [id number] Madeline Hebertellanos 12/03/2020 1 [facility] [id number] Mayito Maravillanos [id number] Madeline Maravillanos 12/03/2020 1 [facility] [id number] Mayito Maravillanos [id number] Madeline Maravillanos OBGyn Episode Ob Episode Information Episode Created Date Number of Fetuses Patient Bloodtype Patient rh Status Prepregnancy Weight lbs Domestic Partner Domestic Partner Phone Father Name Clinical Trials Assistant Status 05/14/20 20 1 A Positive CLOSED Fetus Data First Name Last Name Admitted to NICU Weight (g) Sex Living Outcome Pediatric Complications Fetus ID Race Codes Race Delivery Type 3288.54 2 M true Full Term 6501 Problems Problem Notes Problem Name Start Date End Date Resolution Snomed Code Not e Advanced maternal age 459346572 level II Depression screening 09/23/2020 11709010 6 PHQ9: 16, GAD7: 19 @ 28 [...] Cervic Effacement Cervic Station 36 cm none [place] neg Type Weight in lbs BP [...] Disease false Other Infection History false Thalassemia (Mexican, Macedonian, Mediterranean, Or Background): MCV < 80 false [...] TB Or Exposed To TB false Thalassemia (Mexican, Macedonian, Mediterranean, Or Background): MCV < 80 false Sickle Cell Disease Or Trait () false Intellectual Disability/Autism false Patient Or Partner Has History Of Genital Herpes false History of HIV false Harry-Sachs (eg, Anabaptism, Cajun, Pitcairn Islander-Vietnamese) f alse Neural Tube Defect (Meningomyelocele, Spina Bifi da, Or Anencephaly) false Hemophilia Or Other Blood Disorders false [place]'s Chorea false Congenital Heart Defect false Other [...] neous Regional-Ep idural 37.4 Mervin Austin DO [facility] Discharge Information Feeding Method Contraceptive Method Maternal HG B and HCT Levels Ob Episode Information Episode Created Date Number of Fetuses Patient Bloodtype Patient rh Status Prepregnancy Weight lbs Domestic Partner Domestic Partner Phone Father Name Clinical Trials Assistant Status 05/14/20 20 1 CLOSED Fetus Data [...] Domestic Partner Domestic Partner Phone Father Name Clinical Trials Assistant Status 05/14/20 20 1 CLOSED Fetus Data [...] Domestic Partner Domestic Partner Phone Father Name Clinical Trials Assistant Status 05/14/20 20 1 CLOSED Fetus Data [...] Domestic Partner Domestic Partner Phone Father Name Clinical Trials Assistant Status 05/14/20 20 1 CLOSED Fetus Data [...]
--- OUTSIDE RECORDS SUMMARY | 2024-08-22 07:21 | XMS_ITS | Encounter Summary ---
Author Organization [facility] Address [address] [place] [id number] Care Team Providers Care Cracking Unit Operator Name Role Phone Mariel Galindo APRN, CNP Primary Care Provi adam Unavailable Mateo, Mariel Stout APRN CASH CONTROL SPECIALIST Unavailable Un available Samia Silverman MD Unavailable [phone] No Ref-Primary, Physician Primary Care Provider Mateo, Mariel Stout APRN CASH CONTROL SPECIALIST Unavailable Un available Nadege Jones APRN CASH CONTROL SPECIALIST Unavailable Mateo, Mariel Stout APRN CASH CONTROL SPECIALIST Unavailable Un available Nadege Jones APRN CASH CONTROL SPECIALIST Unavailable Mateo, Mariel Stout APRN CASH CONTROL SPECIALIST Unavailable Un available Mateo, Mariel Stout APRN CASH CONTROL SPECIALIST Unavailable Un available MateoMariel meng APRN CASH CONTROL SPECIALIST Unavailable Un available Deja Mendez PA-C Unavailable [phone] Reason for Visit * Reason Onset Date Comments Refill Request 07/07/2021 Encounter Details Date Type Department Care Team (Late st Contact Info) Description 07/07/2021 [facility] [address] [address] Mariel Galindo APRN CNP Refill Request Social History Tobacco Use Types Packs/Day Years Used Date Smoking Tobacco: Never Smokeless Tobacco: Never Alcohol Use Standard Drinks/Week Comments Not Currently 0 (1 standard drink = 0.6 oz pur e alcohol) wine occasionally PHQ-2 Answer Date Recorded PHQ-2 Total Score (Adult) - Positive if 3 or more points; Administer PHQ-9 if positive 2 07/09/2021 [place] Depression Scale Answer Date Recorded [place] Depression Score 16 12/04/2020 Last EPDS Self Harm Result Not on file 12/04 Comments No Sex and Gender Information Value Date Recorded Sex Assigned at Female 04/07/2021 2:32 PM CDT Legal Sex Female 10:33 AM [employer] Gender Identity Female 04/07/2021 2:32 PM [...] documented as of this encounter Care Teams Cracking Unit Operator Relationship Specialty Start Date End Date Mariel Galindo APRN CASH CONTROL SPECIALIST PCP - General Nurse Practitioner 08/13/14 06/08/22 No Ref-Primary, Physician PCP - General 06/09/22 06/02/23 Mariel Galindo APRN CASH CONTROL SPECIALIST Assigned PCP 10/21/14 04/10/22 Samia Silverman MD [address] [id number] Assigned OBGYN Provider 08/04/20 Mariel Galindo APRN CASH CONTROL SPECIALIST Assigned PCP 06/27/22 01/08/23 Nadege Jones APRN CASH CONTROL SPECIALIST [address] [facility] [place] [address] Assigned PCP 01/09/23 01/15/23 Mateo, Mariel Stout APRN CASH CONTROL SPECIALIST Assigned PCP 01/16/23 04/23/23 Nadege Jones APRN CASH CONTROL SPECIALIST [address] [place], [place] [address] Assigned PCP 04/24/23 10/06/23 Mateo, Mariel Stout APRN CASH CONTROL SPECIALIST Assigned PCP 10/07/23 11/04/23 Mateo, Mariel Stout APRN CASH CONTROL SPECIALIST Assigned PCP 11/05/23 12/03/23 Mateo, Mariel Stout APRN CASH CONTROL SPECIALIST Assigned PCP 12/04/23 01/03/24 Deja Mendez PA-C [id number] [place] [id number] Assigned PCP 01/04/24 documented as of this encounter
== END 2024-08-18 08:56 | disposition home or self-care (01) ==
LOC: NFLDREF 08-22 07:18
PROVIDERS: Visit Provider Midwife
DX: O99.810 Abnormal glucose complicating pregnancy (principal)
CPT/HCPCS: 82951; 82952

== ENCOUNTER 2024-08-18 11:56 | Outpatient (CLI) | payer OTHER, SELFPAY ==
--- OUTSIDE RECORDS SUMMARY | 2024-08-18 11:59 | XMS_ITS | Encounter Summary ---
Author Organization [facility] Address [address] [place] [address] Care Team Providers Care Diesel Technician Mechanic Name Role Phone Mateo, Mariel Stout VALVE REPAIRER RECLAMATION TALLOW PUMPER Primary Care Provi adam Unavailable Mateo, Mariel Stout VALVE REPAIRER RECLAMATION TALLOW PUMPER Unavailable Un available Samia Silverman MD Unavailable [phone] No Ref-Primary, Physician Primary Care Provider Mateo, Mariel Stout APRN TALLOW PUMPER Unavailable Un available Nadege Jones APRN TALLOW PUMPER Unavailable Mateo, Mariel Stout APRN TALLOW PUMPER Unavailable Un available Nadege Jones APRN TALLOW PUMPER Unavailable Mateo, Mariel Stout APRN TALLOW PUMPER Unavailable Un available Mateo, Mariel Stout APRN TALLOW PUMPER Unavailable Un available MateoMariel APRN TALLOW PUMPER Unavailable Un available Deja Mendez PA-C Unavailable [phone] Encounter Details Date Type Department Care [...] CDT Legal Sex Female 10:33 AM SUPERVISOR ANODIZING Gender Identity Female 04/07/2021 2:32 PM CDT [...] as of this encounter Care Teams Diesel Technician Mechanic Relationship Specialty Start Date End Date Mariel Galindo APRN CNP PCP - General Nurse Practitioner 08/13/14 06/08/22 No Ref-Primary, Physician PCP - General 06/09/22 06/02/23 Mariel Galindo APRN TALLOW PUMPER Assigned PCP 10/21/14 04/10/22 Samia Silverman MD [address] [place] [address] Assigned OBGYN Provider 08/04/20 Mariel Galindo APRN TALLOW PUMPER Assigned PCP 06/27/22 01/08/23 Nadege Jones APRN TALLOW PUMPER [address] [place] [address] Assigned PCP 01/09/23 01/15/23 Mariel Galindo APRN TALLOW PUMPER Assigned PCP 01/16/23 04/23/23 Nadege Jones APRN TALLOW PUMPER [address] [place] [address] Assigned PCP 04/24/23 10/06/23 Mariel Galindo APRN TALLOW PUMPER Assigned PCP 10/07/23 11/04/23 MateoMariel meng APRN TALLOW PUMPER Assigned PCP 11/05/23 12/03/23 Mariel Galindo APRN TALLOW PUMPER Assigned PCP 12/04/23 01/03/24 Deja Mendez PA-C [address] [place] [address] Assigned PCP 01/04/24 documented as of this encounter
--- OUTSIDE RECORDS SUMMARY | 2024-08-18 11:59 | XMS_ITS | Encounter Summary ---
Author Organization [facility] Address [address] [place] [address]. [place] [address] Care Team Providers Care Rating Officer Name Role Phone Mateo, Mariel Stout TALENT PARTNER PROCESS ENVIRONMENTAL TECHNICIAN Primary Care Provi adam Unavailable Mateo, Mariel Stout TALENT PARTNER PROCESS ENVIRONMENTAL TECHNICIAN Unavailable Un available Samia Silverman MD Unavailable [phone] No Ref-Primary, Physician Primary Care Provider Mateo, Mariel Stout TALENT PARTNER PROCESS ENVIRONMENTAL TECHNICIAN Unavailable Un available Nadege Jones APRN PROCESS ENVIRONMENTAL TECHNICIAN Unavailable Mateo, Mariel Argelia TALENT PARTNER PROCESS ENVIRONMENTAL TECHNICIAN Unavailable Un available Nadege Jones APRN PROCESS ENVIRONMENTAL TECHNICIAN Unavailable [phone] Mateo, Mariel Stout TALENT PARTNER PROCESS ENVIRONMENTAL TECHNICIAN Unavailable Un available Mateo, Mariel Stout TALENT PARTNER PROCESS ENVIRONMENTAL TECHNICIAN Unavailable Un available Mateo, Mariel Stout TALENT PARTNER PROCESS ENVIRONMENTAL TECHNICIAN Unavailable Un available Deja Mendez PA-C Unavailable [phone] Encounter Details Date Type Department Care Team (Late st Contact Info) Description 03/03/2021 [facility] [place] [facility] [place] [address] [place] [address] Sheyla Cespedes, PROFESSOR OF EARLY CHILDHOOD EDUCATION Social History Tobacco Use Types Packs/Day Years Used Date Smoking Tobacco: Never Smokeless Tobacco: Never Alcohol Use Standard Drinks/Week Comments Not Currently 0 (1 standard drink = 0.6 oz pur e alcohol) wine occasionally PHQ-2 Answer Date Recorded PHQ-2 Total Score (Adult) - Positive if 3 or more points; Administer PHQ-9 if positive 0 03/06/2021 [place] Depression Scale Answer Date Recorded [place] Depression Score 16 12/04/2020 Last EPDS Self Harm Result Not on file 12/04 Comments No Sex and Gender Information Value Date Recorded Sex Assigned at Female 04/07/2021 2:32 PM CDT Legal Sex Female 10:33 AM PHYS ASST Gender Identity Female 04/07/2021 2:32 PM CDT Sexual Orientation Straight 04/07/2021 2: 32 PM CDT documented as of this encounter Plan of Treatment Not on file documented as of this encounter Visit Diagnoses Not on filedocumented in this encounter Additional Health Concerns Assessment Noted Time PHQ-9 Depression Total Score: 10 021 7:04 AM CDT documented as of this encounter Care Teams Rating Officer Relationship Specialty Start Date End Date Mariel Galindo APRN CNP PCP - General Nurse Practitioner 08/13/14 06/08/22 No Ref-Primary, Physician PCP - General 06/09/22 06/02/23 Mariel Galindo APRN PROCESS ENVIRONMENTAL TECHNICIAN Assigned PCP 10/21/14 04/10/22 Samia Silverman MD [address] [place] [address] Assigned OBGYN Provider 08/04/20 Mariel Galindo APRN PROCESS ENVIRONMENTAL TECHNICIAN Assigned PCP 06/27/22 01/08/23 Nadege Jones APRN PROCESS ENVIRONMENTAL TECHNICIAN [address] [place] [address] Assigned PCP 01/09/23 01/15/23 Mariel Galindo APRN PROCESS ENVIRONMENTAL TECHNICIAN Assigned PCP 01/16/23 04/23/23 Nadege Jones APRN PROCESS ENVIRONMENTAL TECHNICIAN [address] [place] [address] Assigned PCP 04/24/23 10/06/23 Mateo, Mariel Stout APRN PROCESS ENVIRONMENTAL TECHNICIAN Assigned PCP 10/07/23 11/04/23 Mateo, Mariel Stout APRN PROCESS ENVIRONMENTAL TECHNICIAN Assigned PCP 11/05/23 12/03/23 Mateo, Mariel Stout APRN PROCESS ENVIRONMENTAL TECHNICIAN Assigned PCP 12/04/23 01/03/24 Deja Mendez PA-C [address] [place] [address] Assigned PCP 01/04/24 documented as of this encounter
--- OUTSIDE RECORDS SUMMARY | 2024-08-18 11:59 | XMS_ITS | Encounter Summary ---
Author Organization [facility] Address [address] [place] [address]. [place] [address] Care Team Providers Care Instructional Design Consultant Name Role Phone Mateo, Mariel Stout RADIOLOGIST INSTALLER MOLDING AND TRIM Primary Care Provi adam Unavailable Mateo, Mariel Stout RADIOLOGIST INSTALLER MOLDING AND TRIM Unavailable Un available Samia Silverman MD Unavailable [phone] No Ref-Primary, Physician Primary Care Provider Mateo, Mariel Stout RADIOLOGIST INSTALLER MOLDING AND TRIM Unavailable Un available Nadege Jones APRN INSTALLER MOLDING AND TRIM Unavailable Mateo, Mariel Argelia RADIOLOGIST INSTALLER MOLDING AND TRIM Unavailable Un available Nadege Jones APRN INSTALLER MOLDING AND TRIM Unavailable [phone] Mateo, Mariel Stout APRN INSTALLER MOLDING AND TRIM Unavailable Un available Mateo, Mariel Stout APRN INSTALLER MOLDING AND TRIM Unavailable Un available Mateo, Mariel Stout APRN INSTALLER MOLDING AND TRIM Unavailable Un available Deja Mendez PA-C Unavailable [phone] Encounter Details Date Type Department Care Team (Late st Contact Info) Description 09/27/2019 [facility] [place] [address] [place] [address] Mimi Sun Social History Tobacco [...] PM CDT Legal Sex Female 10:33 AM ICE CREAM SERVER Gender Identity Female 04/07/2021 2:32 PM CDT Sexual Orientation Straight 04/07/2021 2: 32 PM CDT documented as of this encounter Plan of Treatment Not on file documented as of this encounter Visit Diagnoses Not on filedocumented in this encounter Additional Health Concerns Assessment Noted Time PHQ-9 Depression Total Score: 9 07/28/20 19 8:28 AM ICE CREAM SERVER documented as of this encounter Care Teams Instructional Design Consultant Relationship Specialty Start Date End Date Mariel Galindo APRN CNP PCP - General Nurse Practitioner 08/13/14 06/08/22 No Ref-Primary, Physician PCP - General 06/09/22 06/02/23 Mariel Galindo APRN INSTALLER MOLDING AND TRIM Assigned PCP 10/21/14 04/10/22 Samia Silverman MD [address] [address] Assigned OBGYN Provider 08/04/20 Mariel Galindo APRN INSTALLER MOLDING AND TRIM Assigned PCP 06/27/22 01/08/23 Nadege Jones APRN INSTALLER MOLDING AND TRIM [address] [place] [phone] Assigned PCP 01/09/23 01/15/23 Mariel Galindo APRN INSTALLER MOLDING AND TRIM Assigned PCP 01/16/23 04/23/23 Nadege Jones APRN INSTALLER MOLDING AND TRIM [address] [place] [phone] Assigned PCP 04/24/23 10/06/23 MateoMariel meng APRN INSTALLER MOLDING AND TRIM Assigned PCP 10/07/23 11/04/23 MateoMariel meng APRN INSTALLER MOLDING AND TRIM Assigned PCP 11/05/23 12/03/23 AmteoMariel meng APRN INSTALLER MOLDING AND TRIM Assigned PCP 12/04/23 01/03/24 Deja Mendez PA-C [address] [place] [address] Assigned PCP 01/04/24 documented as of this encounter
--- OUTSIDE RECORDS SUMMARY | 2024-08-18 11:59 | XMS_ITS | Encounter Summary ---
Author Organization [facility] Address [address] [place] [address] Care Team Providers Care Home Health Care Provider Name Role Phone No Ref-Primary, Physician Primary Care Provider Mateo, Mariel Stout APRN PROJECT INTERN Unavailable Un available Nadege Jones APRN PROJECT INTERN Unavailable Mateo, Mariel Stout APRN PROJECT INTERN Unavailable Un available Mtaeo, Mariel Stout APRN PROJECT INTERN Unavailable Un available Mateo, Mariel Stout APRN PROJECT INTERN Unavailable Un available Deja Mendez PA-C Unavailable [phone] Reason for Visit * Reason Onset Date Comments Refill Request 02/18/2023 Encounter Details Date Type Department Care Team (Late st Contact Info) Description 02/18/2023 MyC Refill [facility] [address] [place] [address] Tamra Chavez PA-C [address] [place] [address] Refill Request Social History Tobacco Use Types Packs/Day Years Used Date Smoking Tobacco: Never Smokeless Tobacco: Never Alcohol Use Standard Drinks/Week Comments Yes 0 (1 standard drink = 0.6 oz pur e alcohol) wine occasionally PHQ-2 Answer Date Recorded PHQ-2 Total Score (Adult) - Positive if 3 or more points; Administer PHQ-9 if positive 2 02/18/2023 [place] Depression Scale Answer Date Recorded [place] Depression Score 16 12/04/2020 Last EPDS Self Harm Result Not on file 12/04 Comments No Sex and Gender Information Value Date Recorded Sex Assigned at Female 04/07/2021 2:32 PM CDT Legal Sex Female 10:33 AM PLATING TANK OPERATOR Gender Identity Female 04/07/2021 2:32 [...] of this encounter Care Teams Home Health Care Provider Relationship Specialty Start Date End Date No Ref-Primary, Physician PCP - General 06/09/22 06/02/23 Mariel Galindo APRN PROJECT INTERN Assigned PCP 01/16/23 04/23/23 Nadege Jones APRN PROJECT INTERN [address] [place] [phone] Assigned PCP 04/24/23 10/06/23 Mariel Galindo APRN PROJECT INTERN Assigned PCP 10/07/23 11/04/23 Mariel Galindo APRN PROJECT INTERN Assigned PCP 11/05/23 12/03/23 Mariel Galindo APRN PROJECT INTERN Assigned PCP 12/04/23 01/03/24 Deja Mendez PA-C [address] [place] [address] Assigned PCP 01/04/24 documented as of this encounter
--- OUTSIDE RECORDS SUMMARY | 2024-08-18 11:59 | XMS_ITS | Encounter Summary ---
Author Organization [facility] Address [address] [place] [address] Care Team Providers Care Solid Tire Finisher Name Role Phone Mariel Galindo APRN, CNP Primary Care Provi adam Unavailable Mateo, Mariel Stout APRN HEAVY EQUIPMENT OPERATOR Unavailable Un available Samia Silverman MD Unavailable [phone] No Ref-Primary, Physician Primary Care Provider Mateo, Mariel Stout APRN HEAVY EQUIPMENT OPERATOR Unavailable Un available Nadege Jones APRN HEAVY EQUIPMENT OPERATOR Unavailable Mateo, Mariel Stout APRN HEAVY EQUIPMENT OPERATOR Unavailable Un available Nadege Jones APRN HEAVY EQUIPMENT OPERATOR Unavailable Mateo, Mariel Stout APRN HEAVY EQUIPMENT OPERATOR Unavailable Un available Mateo, Mariel Stout APRN HEAVY EQUIPMENT OPERATOR Unavailable Un available MateoMariel meng APRN HEAVY EQUIPMENT OPERATOR Unavailable Un available Deja Mendez PA-C Unavailable [phone] Reason for Visit * Reason Onset Date Comments Refill Request 06/06/2021 Encounter Details Date Type Department Care Team (Late st Contact Info) Description 06/06/2021 [facility] [address] [address] Mariel Galindo APRN CNP Refill Request Social History Tobacco Use Types Packs/Day Years Used Date Smoking Tobacco: Never Smokeless Tobacco: Never Alcohol Use Standard Drinks/Week Comments Not Currently 0 (1 standard drink = 0.6 oz pur e alcohol) wine occasionally PHQ-2 Answer Date Recorded PHQ-2 Total Score (Adult) - Positive if 3 or more points; Administer PHQ-9 if positive 0 04/07/2021 [place] Depression Scale Answer Date Recorded [place] Depression Score 16 12/04/2020 Last EPDS Self Harm Result Not on file 12/04 Comments No Sex and Gender Information Value Date Recorded Sex Assigned at Female 04/07/2021 2:32 PM CDT Legal Sex Female 10:33 AM ANIMAL GENETICIST Gender Identity Female 04/07/2021 2:32 PM [...] documented as of this encounter Care Teams Solid Tire Finisher Relationship Specialty Start Date End Date Mariel Galindo APRN HEAVY EQUIPMENT OPERATOR PCP - General Nurse Practitioner 08/13/14 06/08/22 No Ref-Primary, Physician PCP - General 06/09/22 06/02/23 Mariel Galindo APRN HEAVY EQUIPMENT OPERATOR Assigned PCP 10/21/14 04/10/22 Samia Silverman MD [address] [address] Assigned OBGYN Provider 08/04/20 Mateo, Mariel Stout APRN HEAVY EQUIPMENT OPERATOR Assigned PCP 06/27/22 01/08/23 Nadege Jones APRN HEAVY EQUIPMENT OPERATOR [address] [place], [place] [phone] Assigned PCP 01/09/23 01/15/23 Mateo, Mariel Stout APRN HEAVY EQUIPMENT OPERATOR Assigned PCP 01/16/23 04/23/23 Nadege Jones APRN HEAVY EQUIPMENT OPERATOR [address] [place], [place] [id number] Assigned PCP 04/24/23 10/06/23 Mateo, Mariel Stout APRN HEAVY EQUIPMENT OPERATOR Assigned PCP 10/07/23 11/04/23 Mateo, Mariel Stout APRN HEAVY EQUIPMENT OPERATOR Assigned PCP 11/05/23 12/03/23 Mateo, Mariel Stout APRN HEAVY EQUIPMENT OPERATOR Assigned PCP 12/04/23 01/03/24 Deja Mendez PA-C [address] [place] [address] Assigned PCP 01/04/24 documented as of this encounter
--- OUTSIDE RECORDS SUMMARY | 2024-08-18 11:59 | XMS_ITS | Encounter Summary ---
Author Organization [facility] Address [address] [place] [address] Care Team Providers Care Media Manager Name Role Phone No Ref-Primary, Physician Primary Care Provider MateoMariel SERICULTURE TEACHER DIRECTOR CORPORATE SALES Unavailable Un available Nadege Jones APRN DIRECTOR CORPORATE SALES Unavailable [phone] MateoMariel SERICULTURE TEACHER DIRECTOR CORPORATE SALES Unavailable Un available MateoMariel APRN DIRECTOR CORPORATE SALES Unavailable Un available MateoMariel APRN DIRECTOR CORPORATE SALES Unavailable Un available Deja Mendez PA-C Unavailable [phone] Encounter Details Date Type Department Care Team (Late st Contact Info) Description 04/16/2023 MyC Medical Advice [facility] [address] [place] [address] Kimberly Montanez, [facility] Social History Tobacco Use Types Packs/Day [...] declined 04/20/2023 How often do you attend samaritan or voodoo serv ices? Never 04/20/2023 Do you belong to any clubs o r organizations such as samaritan groups, unions, fraternal or athletic groups, or [...] Answer Date Recorded PHQ-2 Score 4 04/20/2023 [facility] - Occupational [...] No 04/20/2023 Housing Stability Vital Sign Answer Clayotn e Recorded In the last 12 months, [...] in a residential (including now)? No 04/20/2023 [place] Depression Scale Answer Date Recorded [place] Depression Score 16 12/04/2020 Last EPDS Self Harm Result Not on file 12/04 Comments No Sex and Gender Information Value Date Recorded Sex Assigned at Female 04/07/2021 2:32 PM CDT Legal Sex Female 10:33 AM COMPUTER SYSTEMS AUDITOR Gender Identity Female 04/07/2021 2:32 PM CDT Sexual Orientation Straight 04/07/2021 2: 32 PM CDT documented as of this encounter Plan of Treatment Not on file documented as of this encounter Visit Diagnoses Not on filedocumented in this encounter Additional Health Concerns Assessment Noted Time PHQ-9 Depression Total Score: 12 023 3:55 PM CDT documented as of this encounter Care Teams Media Manager Relationship Specialty Start Date End Date No Ref-Primary, Physician PCP - General 06/09/22 06/02/23 Mariel Galindo APRN DIRECTOR CORPORATE SALES Assigned PCP 01/16/23 04/23/23 Nadege Jones APRN DIRECTOR CORPORATE SALES [address] [place] [address] Assigned PCP 04/24/23 10/06/23 Mariel Galindo APRN DIRECTOR CORPORATE SALES Assigned PCP 10/07/23 11/04/23 Mariel Galindo APRN DIRECTOR CORPORATE SALES Assigned PCP 11/05/23 12/03/23 Mariel Galindo APRN DIRECTOR CORPORATE SALES Assigned PCP 12/04/23 01/03/24 Deja Mendez PA-C [address] [place] [phone] Assigned PCP 01/04/24 documented as of this encounter
--- OUTSIDE RECORDS SUMMARY | 2024-08-18 11:59 | XMS_ITS | Encounter Summary ---
Author Organization [facility] Address [address] [place] [address] Care Team Providers Care Fire Prevention Forester Name Role Phone Mateo, Mariel Stout APRN, CNP Primary Care Provi adam Unavailable Mateo, Mariel Stout APRN EXTRUSION PRESS SUPERVISOR Unavailable Un available Samia Silverman MD Unavailable [phone] No Ref-Primary, Physician Primary Care Provider Mateo, Mariel Stout APRN EXTRUSION PRESS SUPERVISOR Unavailable Un available Nadege Jones APRN EXTRUSION PRESS SUPERVISOR Unavailable [phone] Mateo, Mariel Stout APRN EXTRUSION PRESS SUPERVISOR Unavailable Un available Nadege Jones APRN EXTRUSION PRESS SUPERVISOR Unavailable Mateo, Mariel Stout APRN EXTRUSION PRESS SUPERVISOR Unavailable Un available Mateo, Mariel Stout APRN EXTRUSION PRESS SUPERVISOR Unavailable Un available MateoMariel meng APRN EXTRUSION PRESS SUPERVISOR Unavailable Un available Deja Mendez PA-C Unavailable [phone] Reason for Visit * Reason Onset Date Comments Refill Request 09/14/2019 Encounter Details Date Type Department Care Team (Late st Contact Info) Description 09/14/2019 [facility] [address] [address] Mariel Galindo APRN CNP Refill [...] PM CDT Legal Sex Female 10:33 AM LINE HELPER Gender Identity Female 04/07/2021 2:32 PM CDT [...] Total Score: 9 07/28/20 19 8:28 AM LINE HELPER documented as of this encounter Care Teams Fire Prevention Forester Relationship Specialty Start Date End Date Mariel Galindo APRN CNP PCP - General Nurse Practitioner 08/13/14 06/08/22 No Ref-Primary, Physician PCP - General 06/09/22 06/02/23 Mariel Galindo APRN CNP Assigned PCP 10/21/14 04/10/22 Samia Silverman MD [address] [place] [address] Assigned OBGYN Provider 08/04/20 Mariel Galindo APRN EXTRUSION PRESS SUPERVISOR Assigned PCP 06/27/22 01/08/23 Nadege Jones APRN EXTRUSION PRESS SUPERVISOR [address] [place] [address] Assigned PCP 01/09/23 01/15/23 Mariel Galindo APRN EXTRUSION PRESS SUPERVISOR Assigned PCP 01/16/23 04/23/23 Nadege Jones APRN EXTRUSION PRESS SUPERVISOR [address] [place] [address] Assigned PCP 04/24/23 10/06/23 MateoMariel meng APRN EXTRUSION PRESS SUPERVISOR Assigned PCP 10/07/23 11/04/23 Mateo, Mariel Stout APRN EXTRUSION PRESS SUPERVISOR Assigned PCP 11/05/23 12/03/23 Mateo, Mariel Stout APRN EXTRUSION PRESS SUPERVISOR Assigned PCP 12/04/23 01/03/24 Deja Mendez PA-C [address] [place] [address] Assigned PCP 01/04/24 documented as of this encounter
--- OUTSIDE RECORDS SUMMARY | 2024-08-18 11:59 | XMS_ITS | Encounter Summary ---
Author Organization [place] Address [address] [place] [address] Care Team Providers Care Fastener Technologist Name Role Phone Mariel Galindo APRN, CNP Primary Care Provi adam Unavailable Mateo, Mariel Stout APRN AUDIOVISUAL PRODUCTION SPECIALIST Unavailable Un available Samia Silverman MD Unavailable [phone] No Ref-Primary, Physician Primary Care Provider Mateo, Mariel Stout APRN AUDIOVISUAL PRODUCTION SPECIALIST Unavailable Un available Nadege Jones APRN AUDIOVISUAL PRODUCTION SPECIALIST Unavailable Mateo, Mariel Stout APRN AUDIOVISUAL PRODUCTION SPECIALIST Unavailable Un available Nadege Jones APRN AUDIOVISUAL PRODUCTION SPECIALIST Unavailable Mateo, Mariel Stout APRN AUDIOVISUAL PRODUCTION SPECIALIST Unavailable Un available Mateo, Mariel Stout APRN AUDIOVISUAL PRODUCTION SPECIALIST Unavailable Un available MateoMariel meng APRN AUDIOVISUAL PRODUCTION SPECIALIST Unavailable Un available Deja Mendez PA-C Unavailable [phone] Reason for Visit * Reason Onset Date Comments Refill Request 10/09/2021 Encounter Details Date Type Department Care Team (Late st Contact Info) Description 10/09/2021 [facility] [address] [address] Mariel Galindo APRN CNP Refill Request Social History Tobacco Use Types Packs/Day Years Used Date Smoking Tobacco: Never Smokeless Tobacco: Never Alcohol Use Standard Drinks/Week Comments Not Currently 0 (1 standard drink = 0.6 oz pur e alcohol) wine occasionally PHQ-2 Answer Date Recorded PHQ-2 Total Score (Adult) - Positive if 3 or more points; Administer PHQ-9 if positive 2 07/09/2021 [place] Depression Scale Answer Date Recorded [place] Depression Score 16 12/04/2020 Last EPDS Self Harm Result Not on file 12/04 Comments No Sex and Gender Information Value Date Recorded Sex Assigned at Female 04/07/2021 2:32 PM CDT Legal Sex Female 10:33 AM CERTIFIED MEDICAL ASST Gender Identity Female 04/07/2021 2:32 PM CDT Sexual Orientation Straight 04/07/2021 2: 32 PM CDT documented as of this encounter Miscellaneous Notes * Telephone Encounter - Mariel Pedersen RN - 10/09/2021 8:54 AM CST Routing refill request to provider for review/approval because: Drug not on the G refill protocol Mariel Pedersen RN on 10/09/2021 at 8:54 AM IFIED MEDICAL ASST documented in this encounter Plan of Treatment Not on file documented as of this encounter Visit Diagnoses Diagnosis ADHD (attention deficit hyperactivity disorder), combined type Attention deficit disorder with hyperactivity documented in this encounter Additional Health Concerns Assessment Noted Time PHQ-9 Depression Total Score: 12 021 7:02 AM CDT documented as of this encounter Care Teams Fastener Technologist Relationship Specialty Start Date End Date Mariel Galindo APRN AUDIOVISUAL PRODUCTION SPECIALIST PCP - General Nurse Practitioner 08/13/14 06/08/22 No Ref-Primary, Physician PCP - General 06/09/22 06/02/23 Mariel Galindo APRN CNP Assigned PCP 10/21/14 04/10/22 Samia Silverman MD [address] [address] Assigned OBGYN Provider 08/04/20 Mateo, Mariel Stout APRN AUDIOVISUAL PRODUCTION SPECIALIST Assigned PCP 06/27/22 01/08/23 Nadege Jones APRN AUDIOVISUAL PRODUCTION SPECIALIST [address], [place] [phone] Assigned PCP 01/09/23 01/15/23 Mateo, Mariel Stout APRN AUDIOVISUAL PRODUCTION SPECIALIST Assigned PCP 01/16/23 04/23/23 Ndaege Jones APRN AUDIOVISUAL PRODUCTION SPECIALIST [address], [place] [phone] Assigned PCP 04/24/23 10/06/23 Mateo, Mariel Stout APRN AUDIOVISUAL PRODUCTION SPECIALIST Assigned PCP 10/07/23 11/04/23 Mateo, Mariel Stout APRN AUDIOVISUAL PRODUCTION SPECIALIST Assigned PCP 11/05/23 12/03/23 Mateo, Mariel Stout APRN AUDIOVISUAL PRODUCTION SPECIALIST Assigned PCP 12/04/23 01/03/24 Deja Mendez PA-C [address] [place] [address] Assigned PCP 01/04/24 documented as of this encounter
--- OUTSIDE RECORDS SUMMARY | 2024-08-18 11:59 | XMS_ITS | Encounter Summary ---
Author Organization [facility] Address [address] [place] [address] Care Team Providers Care Sports Book Writer Name Role Phone Mateo, Mariel Stout PERSONAL ATTENDANT AMMUNITION SUPERVISOR Primary Care Provi adam Unavailable Mateo, Mariel Stout PERSONAL ATTENDANT AMMUNITION SUPERVISOR Unavailable Un available Samia Silverman MD Unavailable [phone] No Ref-Primary, Physician Primary Care Provider Mateo, Mariel Stout PERSONAL ATTENDANT AMMUNITION SUPERVISOR Unavailable Un available Nadege Jones APRN AMMUNITION SUPERVISOR Unavailable [phone] Mateo, Mariel Argelia PERSONAL ATTENDANT AMMUNITION SUPERVISOR Unavailable Un available Nadege Jones APRN AMMUNITION SUPERVISOR Unavailable Mateo, Mariel Stout APRN AMMUNITION SUPERVISOR Unavailable Un available Mateo, Mariel Stout APRN AMMUNITION SUPERVISOR Unavailable Un available Mateo, Mariel Stout APRN AMMUNITION SUPERVISOR Unavailable Un available Deja Mendez PA-C Unavailable [phone] Encounter Details Date Type Department Care Team (Late st Contact Info) Description 09/16/2020 [facility] [place] [address] [address] Sheyla Cespedes, ASSOCIATE PROFESSOR OF GEOLOGY Social History Tobacco Use Types Packs/Day Years Used Date Smoking Tobacco: Never Smokeless Tobacco: Never Alcohol Use Standard Drinks/Week Comments Yes 0 (1 standard drink = 0.6 oz pur e alcohol) wine occasionally PHQ-2 Answer Date Recorded PHQ-2 Score 2 07/28/2019 Comments Yes Sex and Gender Information Value Date Recorded Sex Assigned at Female 04/07/2021 2:32 PM CDT Legal Sex Female 10:33 AM BUTTON BRADDER Gender Identity Female 04/07/2021 2:32 PM CDT Sexual Orientation Straight 04/07/2021 2 :32 PM CDT documented as of this encounter Plan of Treatment Not on file documented as of this encounter Visit Diagnoses Not on filedocumented in this encounter Additional Health Concerns Assessment Noted Time PHQ-9 Depression Total Score: 10 020 2:27 PM CDT documented as of this encounter Care Teams Sports Book Writer Relationship Specialty Start Date End Date Mariel Galindo APRN CNP PCP - General Nurse Practitioner 08/13/14 06/08/22 No Ref-Primary, Physician PCP - General 06/09/22 06/02/23 Mariel Galindo APRN CNP Assigned PCP 10/21/14 04/10/22 Samia Silverman MD [address] [id number] Assigned OBGYN Provider 08/04/20 Mariel Galindo APRN AMMUNITION SUPERVISOR Assigned PCP 06/27/22 01/08/23 Nadege Jones APRN AMMUNITION SUPERVISOR [address] [place] [phone] Assigned PCP 01/09/23 01/15/23 Mariel Galindo APRN AMMUNITION SUPERVISOR Assigned PCP 01/16/23 04/23/23 Nadege Jones APRN AMMUNITION SUPERVISOR [address] [place] [phone] Assigned PCP 04/24/23 10/06/23 MateoMariel meng APRN AMMUNITION SUPERVISOR Assigned PCP 10/07/23 11/04/23 MateoMariel meng APRN AMMUNITION SUPERVISOR Assigned PCP 11/05/23 12/03/23 MateoMariel meng APRN AMMUNITION SUPERVISOR Assigned PCP 12/04/23 01/03/24 Deja Mendez PA-C [address] [place] [phone] Assigned PCP 01/04/24 documented as of this encounter
--- OUTSIDE RECORDS SUMMARY | 2024-08-18 11:59 | XMS_ITS | Referral Summary ---
Author Organization [place] Address [address] [place] [address] Care Team Providers Care Adoption Counselor Name Role Phone Deja Mendez PA-C Unavailable [phone] Allergies No known active allergies Medications [...] 07/28/19 NIL, +HR HPV, not 16/18. Plan [place] 06/11/20 Patient is lost to pap tracking [...] Neuropsych evaluation for ADD completed: UNKNOWN Last [facility] website verification: 06/28/19 [email or web address] Assessment & Plan (05/10/2017 6:36 PM CDT): [...] Neuropsych evaluation for ADD completed: No Last [facility] website verification: done on 05.10.17 [email or web address] CARDIOVASCULAR SCREENING; LDL GOAL LESS THAN 160 [...] How often do you attend quaker or worship serv ices? Never 04/20/2023 Do you belong [...] Answer Date Recorded PHQ-2 Score 3 12/14/2023 [facility] [place] of Occupat ional Health - Occupational Stress [...] in a snf (including now)? No 04/20/2023 [place] Depression Scale Answer Date Recorded [place] Depression Score 16 12/04/2020 Last EPDS Self Harm Result Not on file 12/04 Adolescent Education Answer Date Record ed Getting School Help Needed Not on file 06/04 Comments No Sex and Gender Information Value Date Recorded Sex Assigned at Female 04/07/2021 2:32 PM CDT Legal Sex Female 10:33 AM MILK DELIVERY DRIVER Gender Identity Female 04/07/2021 2:32 PM [...] TYPES DNA CERVICAL Routine 11/21/2021 8:09 AM MILK DELIVERY DRIVER Cervical cancer screening GYNECOLOGIC CYTOLOGY Routine 11/21/2021 8:09 AM MILK DELIVERY DRIVER Cervical cancer screening HIV ANTIGEN ANTIBODY COMBO [...] infants, and children. us Nadege Jones APRN PHYSICAL INSTRUCTOR LAB - BLOOD ORDERABLES F inal Result [facility] SPECIALTY CORE/PROT/ENDO UM Specialty Core/Prot/Endo [address] [facility] [address] [facility], [address] [place] [address], [facility] [phone] * Basic metabolic panel (Ca, Cl, CO2, [...] 3:45 PM CDT us Nadege Jones APRN PHYSICAL INSTRUCTOR LAB - BLOOD ORDERABLES F inal Result [facility] 500 [facility], [address] [address], [facility] [phone] * TSH WITH FREE T4 REFLEX (11/24/2022 11:06 AM CDT) Pathologist [facility] TSH 1.31 0.30 - 4.20 uIU/mL 11/24/2022 5:51 PM CDT [facility] Blood BLOOD SPECIMEN / Unknown Venipuncture / Unknown 11/24/2022 11:06 AM CDT 11/24/2022 11:10 AM CDT us Nadege Jones APRN PHYSICAL INSTRUCTOR LAB - BLOOD ORDERABLES F inal Result [facility] 500 [facility] J Building, [address] [place] [address], [facility] [phone] * Pap Screen with HPV - recommended age 30 - 65 years (11/21/2021 8:09 AM MILK DELIVERY DRIVER) Interpretation Negative for Intraepithelial Lesion or Malignancy [...] component of this testing was completed at [facility] 11/25/2021 9:24 AM CDT SPECIALTY LABS Brushing CERVIX UTERI STRUCTURE / Unknown 11/21/2021 8:09 AM MILK DELIVERY DRIVER 11/21/2021 8:24 AM MILK DELIVERY DRIVER Yazmin Galindo BIRD KEEPER PHYSICAL INSTRUCTOR YAYA - CHRISTIAN Al al Result SPECIALTY LABS Specialty Lab [address] [facility] J Building, Room [address] [address], [facility] [phone] * HPV High Risk Types DNA Cervical (11/21/2021 8:09 AM MILK DELIVERY DRIVER) Other HR HPV Negative Negative 11/26/2021 2:10 PM CDT [facility] HPV16 DNA Negative Negative 11/26/2021 2:10 PM CDT [facility] HPV18 DNA Negative Negative 11/26/2021 2:10 PM CDT [facility] FINAL DIAGNOSIS This patient's sample is negative for HPV DNA. This test was developed and its performance characteristics determined by the [facility], Molecular Diagnostics Laboratory. It has not been [...] followup is recommended. 11/26/2021 2:10 PM CDT [facility] Brushing CERVIX UTERI STRUCTURE / Unknown Non-blood Collection / Unknown 11/21/2021 8:09 AM MILK DELIVERY DRIVER 11/25/2021 3:59 PM CDT Yazmin Galindo APRN PHYSICAL INSTRUCTOR LAB - BLOOD ORDERAB LES Final Result [facility] [address] [facility] [address] Building, [address] [address], [facility] [phone] * HIV Antigen Antibody Combo (05/20/2016) HIV Antigen Antibody Combo Negative Blood specimen (specimen) us Patient Reported LAB - BLOOD ORDERABLES Final Re sult from Last 3 Months or Most Recently Relevant to Health Maintenance Care Teams Adoption Counselor Relationship Specialty Start Date End Date Deja Mendez PA-C [address] [place] [phone] Assigned PCP 01/04/24
--- OUTSIDE RECORDS SUMMARY | 2024-08-18 11:59 | XMS_ITS | Encounter Summary ---
Author Organization [place] Address [address] [place] [address] Care Team Providers Care Extrusion Die Corrector Name Role Phone Mateo, Mariel Stout APRN DEEP FRYER ASSEMBLER Primary Care Provi adam Unavailable Mateo, Mariel Stout APRN DEEP FRYER ASSEMBLER Unavailable Un available Samia Silverman MD Unavailable [phone] No Ref-Primary, Physician Primary Care Provider Mateo, Mariel Stout APRN DEEP FRYER ASSEMBLER Unavailable Un available Nadege Jones APRN DEEP FRYER ASSEMBLER Unavailable Mateo, Mariel Stout APRN DEEP FRYER ASSEMBLER Unavailable Un available Nadege Jones APRN DEEP FRYER ASSEMBLER Unavailable [phone] Mateo, Mariel Stout APRN DEEP FRYER ASSEMBLER Unavailable Un available Mateo, Mariel Stout APRN DEEP FRYER ASSEMBLER Unavailable Un available Mateo, Mariel Stout APRN DEEP FRYER ASSEMBLER Unavailable Un available Deja Mendez PA-C Unavailable [phone] Reason for Visit * Reason Onset Date Comments Refill Request 06/20/2019 [place] Encounter Details Date Type Department Care Team (Late st Contact Info) Description 06/20/2019 [facility] [address] [address] Mariel Galindo APRN CNP Refill Request (Earnest) [...] PM CDT Legal Sex Female 10:33 AM ALL SOURCE INTELLIGENCE ANALYST Gender Identity Female 04/07/2021 2:32 PM [...] review/approval because: Drug not on the [facility] refill protocol SOFTWARE TEST TECHNICIAN: .31. Annual Controlled substance agreement: 416 Annual [...] SHOULD BE DELETED.) Last Office Visit with [facility] primary care provider: 10/24/2018-Mariel Galindo Future Office [...] consultation, please call . Analysis performed by [facility], [employer] [place] [address] , No results found for: COMDAT, No results found for: THC13, PCP13, COC13, MAMP13, OPI13, AMP13, BZO13, TCA13, MTD13, BAR13, OXY13, PPX13, BUP13 Processing: Send Electronically to pharmacy [email or web address] SOFTWARE TEST TECHNICIAN checked in past 3 months? No, route to RN documented in this encounter Plan of Treatment Not on file documented as of this encounter Visit Diagnoses Diagnosis ADHD (attention deficit hyperactivity disorder), combined type Attention deficit disorder with hyperactivity documented in this encounter Additional Health Concerns Assessment Noted Time PHQ-9 Depression Total Score: 13 019 7:06 AM ALL SOURCE INTELLIGENCE ANALYST documented as of this encounter Care Teams Extrusion Die Corrector Relationship Specialty Start Date End Date Mariel Galindo APRN DEEP FRYER ASSEMBLER PCP - General Nurse Practitioner 08/13/14 06/08/22 No Ref-Primary, Physician PCP - General 06/09/22 06/02/23 Mariel Galindo APRN DEEP FRYER ASSEMBLER Assigned PCP 10/21/14 04/10/22 Samia Silverman MD [address] [place] [address] Assigned OBGYN Provider 08/04/20 Mateo, Mariel Stout APRN DEEP FRYER ASSEMBLER Assigned PCP 06/27/22 01/08/23 Nadege Jones APRN DEEP FRYER ASSEMBLER [address] [place] [phone] Assigned PCP 01/09/23 01/15/23 Mateo, Mariel Stout APRN DEEP FRYER ASSEMBLER Assigned PCP 01/16/23 04/23/23 Nadege Jones APRN DEEP FRYER ASSEMBLER [address] [place] [phone] Assigned PCP 04/24/23 10/06/23 Mateo, Mariel Stout APRN DEEP FRYER ASSEMBLER Assigned PCP 10/07/23 11/04/23 Mateo, Mariel Stout APRN DEEP FRYER ASSEMBLER Assigned PCP 11/05/23 12/03/23 Mateo, Mariel Stout APRN DEEP FRYER ASSEMBLER Assigned PCP 12/04/23 01/03/24 Deja Mendez PA-C [address] [place] [phone] Assigned PCP 01/04/24 documented as of this encounter
--- OUTSIDE RECORDS SUMMARY | 2024-08-18 11:59 | XMS_ITS | Encounter Summary ---
Author Organization [place] Address [address] [place] [address] Care Team Providers Care Director Of Business Continuity Name Role Phone Mateo, Mariel Stout APRN, CNP Primary Care Provi adam Unavailable Mateo, Mariel Stout APRN SUPERVISOR PUBLICATIONS Unavailable Un available Samia Silverman MD Unavailable [phone] No Ref-Primary, Physician Primary Care Provider Mateo, Mariel Stout APRN SUPERVISOR PUBLICATIONS Unavailable Un available Nadege Jones APRN SUPERVISOR PUBLICATIONS Unavailable Mateo, Mariel Stout APRN SUPERVISOR PUBLICATIONS Unavailable Un available Nadege Jones APRN SUPERVISOR PUBLICATIONS Unavailable [phone] Mateo, Mariel Stout APRN SUPERVISOR PUBLICATIONS Unavailable Un available Mateo, Mariel Stout APRN SUPERVISOR PUBLICATIONS Unavailable Un available MateoMariel meng APRN SUPERVISOR PUBLICATIONS Unavailable Un available Deja Mendez PA-C Unavailable [phone] Reason for Visit * Reason Onset Date Comments Refill Request 03/06/2021 Encounter Details Date Type Department Care Team (Late st Contact Info) Description 03/06/2021 [facility] [address] [address] Mariel Galindo APRN CNP Refill Request Social History Tobacco Use Types Packs/Day Years Used Date Smoking Tobacco: Never Smokeless Tobacco: Never Alcohol Use Standard Drinks/Week Comments Not Currently 0 (1 standard drink = 0.6 oz pur e alcohol) wine occasionally PHQ-2 Answer Date Recorded PHQ-2 Total Score (Adult) - Positive if 3 or more points; Administer PHQ-9 if positive 0 03/06/2021 [place] Depression Scale Answer Date Recorded [place] Depression Score 16 12/04/2020 Last EPDS Self Harm Result Not on file 12/04 Comments No Sex and Gender Information Value Date Recorded Sex Assigned at Female 04/07/2021 2:32 PM CDT Legal Sex Female 10:33 AM STUDENT SUCCESS COUNSELOR Gender Identity Female 04/07/2021 2:32 PM [...] of this encounter Care Teams Director Of Business Continuity Relationship Specialty Start Date End Date Mariel Galindo APRN SUPERVISOR PUBLICATIONS PCP - General Nurse Practitioner 08/13/14 06/08/22 No Ref-Primary, Physician PCP - General 06/09/22 06/02/23 Mateo, Mariel Stout APRN SUPERVISOR PUBLICATIONS Assigned PCP 10/21/14 04/10/22 Samia Silverman MD [address] [place] [address] Assigned OBGYN Provider 08/04/20 Mateo, Mariel Stout APRN SUPERVISOR PUBLICATIONS Assigned PCP 06/27/22 01/08/23 Nadege Jones APRN SUPERVISOR PUBLICATIONS [address] [place] [phone] Assigned PCP 01/09/23 01/15/23 Mateo, Mariel Stout APRN SUPERVISOR PUBLICATIONS Assigned PCP 01/16/23 04/23/23 Nadege Jones APRN SUPERVISOR PUBLICATIONS [address] [place] [phone] Assigned PCP 04/24/23 10/06/23 Mateo, Mariel Stout APRN SUPERVISOR PUBLICATIONS Assigned PCP 10/07/23 11/04/23 Mateo, Mariel Stout APRN SUPERVISOR PUBLICATIONS Assigned PCP 11/05/23 12/03/23 Mateo, Mariel Stout APRN SUPERVISOR PUBLICATIONS Assigned PCP 12/04/23 01/03/24 Deja Mendez PA-C [address] [place] [phone] Assigned PCP 01/04/24 documented as of this encounter
--- OUTSIDE RECORDS SUMMARY | 2024-08-18 11:59 | XMS_ITS | Clinical Summary ---
Author Organization [place] Address [address] [place] [address] Care Team Providers Care Tie Binder Name Role Phone Deja Mendez PA-C Unavailable [phone] Allergies No known active allergies Medications [...] 07/28/19 NIL, +HR HPV, not 16/18. Plan [place] 06/11/20 Patient is lost to pap tracking [...] evaluation for ADD completed: UNKNOWN Last [facility] website verification: 06/28/19 [email or web address] Assessment & Plan (05/10/2017 6:36 PM CDT): [...] evaluation for ADD completed: No Last [facility] website verification: done on 05.10.17 [email or web address] CARDIOVASCULAR SCREENING; LDL GOAL LESS THAN 160 [...] How often do you attend mandaeism or hinduism serv ices? Never 04/20/2023 Do you belong [...] Answer Date Recorded PHQ-2 Score 3 12/14/2023 [facility] Occupat ional Health - Occupational [...] in a intermediate (including now)? No 04/20/2023 [place] Depression Scale Answer Date Recorded [place] Depression Score 16 12/04/2020 Last EPDS Self Harm Result Not on file 12/04 Adolescent Education Answer Date Record ed Getting School Help Needed Not on file 06/04 Comments No Sex and Gender Information Value Date Recorded Sex Assigned at Female 04/07/2021 2:32 PM CDT Legal Sex Female 10:33 AM POULTICE MACHINE OPERATOR Gender Identity Female 04/07/2021 2:32 [...] TYPES DNA CERVICAL Routine 11/21/2021 8:09 AM POULTICE MACHINE OPERATOR Cervical cancer screening GYNECOLOGIC CYTOLOGY Routine 11/21/2021 8:09 AM POULTICE MACHINE OPERATOR Cervical cancer screening HIV ANTIGEN ANTIBODY [...] infants, and children. us Nadege Jones WARREN STRIP MINE SUPERVISOR LAB - BLOOD ORDERABLES F inal Result UM SPECIALTY CORE/PROT/ENDO UM Specialty Core/Prot/Endo [address] [facility] [address] [facility], [address] [address], [facility] [phone] * Basic metabolic panel (Ca, Cl, CO2, [...] 04/20/2023 3:45 PM CDT Nadege Jones APRN STRIP MINE SUPERVISOR LAB - BLOOD ORDERABLES F inal Result Performing Organization Address City/[facility]/ZIP Co de Phone Number LABORATORY [facility] Core Lab [address] [facility], [address] [phone], [facility] [phone] * TSH WITH FREE T4 REFLEX (11/24/2022 11:06 AM CDT) TSH 1.31 0.30 - 4.20 uIU/mL 11/24/2022 5:51 PM CDT [facility] Blood BLOOD SPECIMEN / Unknown Venipuncture / Unknown 11/24/2022 11:06 AM CDT 11/24/2022 11:10 AM CDT Nadege Jones APRN, CNP LAB - BLOOD ORDERABLES F inal Result Performing Organization Address City/[facility] Co de Phone Number LABORATORY [facility] Core Lab [address] [facility], [address] [phone], [facility] [phone] * Pap Screen with HPV - recommended age 30 - 65 years (11/21/2021 8:09 AM POULTICE MACHINE OPERATOR) Interpretation Negative for Intraepithelial Lesion or [...] component of this testing was completed at [facility] 11/25/2021 9:24 AM CDT SPECIALTY LABS Brushing CERVIX UTERI STRUCTURE / Unknown 11/21/2021 8:09 AM POULTICE MACHINE OPERATOR 11/21/2021 8:24 AM POULTICE MACHINE OPERATOR Yazmin Galindo APRN STRIP MINE SUPERVISOR LAB - CHRISTIAN Al al Result SPECIALTY LABS Specialty Lab [address] [facility], [address] [place] [address], [facility] [phone] * HPV High Risk Types DNA Cervical (11/21/2021 8:09 AM POULTICE MACHINE OPERATOR) Other HR HPV Negative Negative 11/26/2021 2:10 PM CDT [facility] HPV16 DNA Negative Negative 11/26/2021 2:10 PM CDT [facility] HPV18 DNA Negative Negative 11/26/2021 2:10 PM CDT [facility] FINAL DIAGNOSIS This patient's sample is negative for HPV DNA. This test was developed and its performance characteristics determined by the [facility], Molecular Diagnostics Laboratory. It has not been [...] Non-blood Collection / Unknown 11/21/2021 8:09 AM POULTICE MACHINE OPERATOR 11/25/2021 3:59 PM CDT us Yazmin Galindo CUSTOMER TRAINER STRIP MINE SUPERVISOR LAB - BLOOD ORDERAB LES Final Result [facility] [address] [facility], [address] [place] [phone], [facility] [phone] * HIV Antigen Antibody Combo (05/20/2016) HIV Antigen Antibody Combo Negative Blood specimen (specimen) us Patient Reported LAB - BLOOD ORDERABLES Final Re sult from Last 3 Months or Most Recently Relevant to Health Maintenance Care Teams Tie Binder Relationship Specialty Start Date End Date Deja Mendez PA-C [address] [place] [address] Assigned PCP 01/04/24
--- OUTSIDE RECORDS SUMMARY | 2024-08-18 11:59 | XMS_ITS | Encounter Summary ---
Author Organization [facility] Address [address] [place] [address] Care Team Providers Care Truck Driver Supervisor Name Role Phone Mateo, Mariel Stout APRN, CNP Primary Care Provi adam Unavailable Mateo, Mariel Stout APRN ORE MIXER Unavailable Un available Mateo, Mariel Stout APRN ORE MIXER Unavailable Un available Samia Silverman MD Unavailable [phone] No Ref-Primary, Physician Primary Care Provider Mateo, Mariel Stout APRN ORE MIXER Unavailable Un available Nadege Jones APRN ORE MIXER Unavailable Mateo, Mariel Stout APRN ORE MIXER Unavailable Un available Nadege Jones APRN ORE MIXER Unavailable Mateo, Mariel Stout APRN ORE MIXER Unavailable Un available Mateo, Mariel Stout APRN ORE MIXER Unavailable Un available Mateo, Mariel Stout APRN ORE MIXER Unavailable Un available Deja Mendez PA-C Unavailable [phone] Reason for Visit * Reason Comments Medication Refill FLUoxetine (PROZAC) 20 MG capsule Encounter Details Date Type Department Care Team (Late st Contact Info) Description 03/25/[address] [address] Mariel Galindo APRN CNP Medication [...] PM CDT Legal Sex Female 10:33 AM TRANSPORT [employer] OFFICER Gender Identity Female 04/07/2021 2:32 PM [...] # refills: 1 Last Office Visit with [facility] primary care provider: 10/23/2016, Mateo Last PHQ-9 [...] documented as of this encounter Care Teams Truck Driver Supervisor Relationship Specialty Start Date End Date Mariel Galindo APRN CNP PCP - General Nurse Practitioner 08/13/14 06/08/22 Mariel Galindo APRN ORE MIXER PCP - Assigned PCP 10/21/14 11/15/18 No Ref-Primary, Physician PCP - General 06/09/22 06/02/23 Mariel Galindo APRN CNP Assigned PCP 10/21/14 04/10/22 Samia Silverman MD [address] [place] [address] [place] [id number] Assigned OBGYN Provider 08/04/20 Mariel Galindo APRN ORE MIXER Assigned PCP 06/27/22 01/08/23 Nadege Jones APRN CNP [address] [facility] [place] [address] Assigned PCP 01/09/23 01/15/23 Mariel Galindo APRN ORE MIXER Assigned PCP 01/16/23 04/23/23 Nadege Jones APRN ORE MIXER [address] [place] [address] Assigned PCP 04/24/23 10/06/23 Mariel Galindo APRN CNP Assigned PCP 10/07/23 11/04/23 Mariel Galindo APRN ORE MIXER Assigned PCP 11/05/23 12/03/23 Mariel Galindo, WARREN ORE MIXER Assigned PCP 12/04/23 01/03/24 Deja Mendez PA-C [address] [place] [address] Assigned PCP 01/04/24 documented as of this encounter
--- OUTSIDE RECORDS SUMMARY | 2024-08-18 11:59 | XMS_ITS | Encounter Summary ---
Author Organization [facility] Address [address] [place] [address] Care Team Providers Care Quality Control Inspector Heading Name Role Phone Mateo, Mariel Stout APRN, CNP Primary Care Provi adam Unavailable Mateo, Mariel Stout APRN CARDIOVASCULAR LAB DIRECTOR Unavailable Un available Samia Silverman MD Unavailable No Ref-Primary, Physician Primary Care Provider Mateo, Mariel Stout APRN CARDIOVASCULAR LAB DIRECTOR Unavailable Un available Nadege Jones APRN CARDIOVASCULAR LAB DIRECTOR Unavailable Mateo, Mariel Stout APRN CARDIOVASCULAR LAB DIRECTOR Unavailable Un available Nadege Jones APRN CARDIOVASCULAR LAB DIRECTOR Unavailable [phone] Mateo, Mariel Stout APRN CARDIOVASCULAR LAB DIRECTOR Unavailable Un available Mateo, Mariel Stout APRN CARDIOVASCULAR LAB DIRECTOR Unavailable Un available MateoMariel meng APRN CARDIOVASCULAR LAB DIRECTOR Unavailable Un available Deja Mendez PA-C Unavailable [phone] Reason for Visit * Reason Comments Medication Refill Encounter Details Date Type Department Care Team (Late st Contact Info) Description 02/02/[address] [address] Mariel Galindo APRN CNP Medication Refill Social History Tobacco Use Types Packs/Day Years Used Date Smoking Tobacco: Never Smokeless Tobacco: Never Alcohol Use Standard Drinks/Week Comments Not Currently 0 (1 standard drink = 0.6 oz pur e alcohol) wine occasionally PHQ-2 Answer Date Recorded PHQ-2 Score 3 12/23/2020 [place] Depression Scale Answer Date Recorded [place] Depression Score 16 12/04/2020 Last EPDS Self Harm Result Not on file 12/04 Comments No Sex and Gender Information Value Date Recorded Sex Assigned at Female 04/07/2021 2:32 PM CDT Legal Sex Female 10:33 AM CUSTOMER ACCOUNT TECHNICIAN Gender Identity Female 04/07/2021 2:32 PM CDT Sexual Orientation Straight 04/07/2021 2: 32 PM CDT documented as of this encounter Miscellaneous Notes * Telephone Encounter - Marcela Benedict RN - 02/04/2021 2:19 PM CDT Routing refill request to provider for review/approval because: Elevated PHQ-9 Marcela Benedict RN [facility] -- Triage Nurse documented in this encounter Plan of Treatment Not on file documented as of this encounter Visit Diagnoses Diagnosis Moderate major depression (H) Major depressive disorder, single episode, moderate documented in this encounter Additional Health Concerns Assessment Noted Time PHQ-9 Depression Total Score: 17 021 1:27 PM CDT documented as of this encounter Care Teams Quality Control Inspector Heading Relationship Specialty Start Date End Date Mariel Galindo APRN CARDIOVASCULAR LAB DIRECTOR PCP - General Nurse Practitioner 08/13/14 06/08/22 No Ref-Primary, Physician PCP - General 06/09/22 06/02/23 Mariel Galindo APRN CARDIOVASCULAR LAB DIRECTOR Assigned PCP 10/21/14 04/10/22 Samia Silverman MD [address] [address] Assigned OBGYN Provider 08/04/20 Mariel Galindo APRN CNP Assigned PCP 06/27/22 01/08/23 Nadege Jones APRN CARDIOVASCULAR LAB DIRECTOR [address] [place], [place] [phone] Assigned PCP 01/09/23 01/15/23 Mateo, Mariel Stout APRN CARDIOVASCULAR LAB DIRECTOR Assigned PCP 01/16/23 04/23/23 Nadege Jones APRN CARDIOVASCULAR LAB DIRECTOR [address] [place], [place] [phone] Assigned PCP 04/24/23 10/06/23 Mateo, Mariel Stout APRN CARDIOVASCULAR LAB DIRECTOR Assigned PCP 10/07/23 11/04/23 Mateo, Mariel Stout APRN CARDIOVASCULAR LAB DIRECTOR Assigned PCP 11/05/23 12/03/23 Mateo, Mariel Stout APRN CARDIOVASCULAR LAB DIRECTOR Assigned PCP 12/04/23 01/03/24 Deja Mendez PA-C [address] [place] [address] Assigned PCP 01/04/24 documented as of this encounter
--- OUTSIDE RECORDS SUMMARY | 2024-08-18 11:59 | XMS_ITS | Encounter Summary ---
Author Organization [place] [facility] Address [address] [place] [address] Care Team Providers Care Housekeeping Room Inspector Name Role Phone MateoMariel meng APRN SHAMPOOER Primary Care Provi adam Unavailable Mateo, Mariel Stout APRN SHAMPOOER Unavailable Un available Mateo, Mariel Stout APRN SHAMPOOER Unavailable Un available Samia Silverman MD Unavailable [phone] No Ref-Primary, Physician Primary Care Provider Mateo, Mariel Stout APRN SHAMPOOER Unavailable Un available Nadege Jones APRN SHAMPOOER Unavailable Mateo, Mariel Stout APRN SHAMPOOER Unavailable Un available Nadege Jones APRN SHAMPOOER Unavailable Mateo, Mariel Stout APRN SHAMPOOER Unavailable Un available Mateo, Mariel Stout APRN SHAMPOOER Unavailable Un available Mateo, Mariel Stout APRN SHAMPOOER Unavailable Un available Deja Mendez PA-C Unavailable [phone] Encounter Details Date Type Department Care [...] PM CDT Legal Sex Female 10:33 AM COLLAR FOLDER OPERATOR Gender Identity Female 04/07/2021 2:32 PM CDT Sexual Orientation Straight 04/07/2021 2: 32 PM CDT documented as of this encounter Plan of Treatment Not on file documented as of this encounter Visit Diagnoses Not on filedocumented in this encounter Additional Health Concerns Assessment Noted Time PHQ-9 Depression Total Score: 12 017 7:21 AM COLLAR FOLDER OPERATOR documented as of this encounter Care Teams Housekeeping Room Inspector Relationship Specialty Start Date End Date Mariel Galindo APRN CNP PCP - General Nurse Practitioner 08/13/14 06/08/22 Mariel Galindo APRN CNP PCP - Assigned PCP 10/21/14 11/15/18 No Ref-Primary, Physician PCP - General 06/09/22 06/02/23 Mariel Galindo APRN CNP Assigned PCP 10/21/14 04/10/22 Samia Silverman MD [address] [address] Assigned OBGYN Provider 08/04/20 Mariel Galindo APRN CNP Assigned PCP 06/27/22 01/08/23 Nadege Jones APRN SHAMPOOER [address] [place] [phone] Assigned PCP 01/09/23 01/15/23 Mariel Galindo APRN SHAMPOOER Assigned PCP 01/16/23 04/23/23 Nadege Jones APRN CNP [address] [place] [phone] Assigned PCP 04/24/23 10/06/23 MateoMariel meng APRN SHAMPOOER Assigned PCP 10/07/23 11/04/23 MateoMariel meng APRN SHAMPOOER Assigned PCP 11/05/23 12/03/23 Mariel Galindo APRN SHAMPOOER Assigned PCP 12/04/23 01/03/24 Deja Mendez PA-C [address] [place] [address] Assigned PCP 01/04/24 documented as of this encounter
--- OUTSIDE RECORDS SUMMARY | 2024-08-18 11:59 | XMS_ITS | Encounter Summary ---
Author Organization [facility] Address [address] [place] [address] Care Team Providers Care Child Advocate Name Role Phone Mariel Galindo APRN, CNP Primary Care Provi adam Unavailable Mateo, Mariel Stout APRN ELECTRIC WIRER Unavailable Un available Samia Silverman MD Unavailable [phone] No Ref-Primary, Physician Primary Care Provider Mateo, Mariel Stout APRN ELECTRIC WIRER Unavailable Un available Nadege Jones APRN ELECTRIC WIRER Unavailable Mateo, Mariel Stout APRN ELECTRIC WIRER Unavailable Un available Nadege Jones APRN ELECTRIC WIRER Unavailable [phone] Mateo, Mariel Stout APRN ELECTRIC WIRER Unavailable Un available Mateo, Mariel Stout APRN ELECTRIC WIRER Unavailable Un available MateoMariel meng APRN ELECTRIC WIRER Unavailable Un available Deja Mendez PA-C Unavailable [phone] Reason for Visit * Reason Onset Date Comments Refill Request 07/07/2021 Encounter Details Date Type Department Care Team (Late st Contact Info) Description 07/07/2021 [facility] [place] [facility] [address] [address] Mariel Galindo APRN CNP Refill Request Social History Tobacco Use Types Packs/Day Years Used Date Smoking Tobacco: Never Smokeless Tobacco: Never Alcohol Use Standard Drinks/Week Comments Not Currently 0 (1 standard drink = 0.6 oz pur e alcohol) wine occasionally PHQ-2 Answer Date Recorded PHQ-2 Total Score (Adult) - Positive if 3 or more points; Administer PHQ-9 if positive 2 07/09/2021 [place] Depression Scale Answer Date Recorded [place] Depression Score 16 12/04/2020 Last EPDS Self Harm Result Not on file 12/04 Comments No Sex and Gender Information Value Date Recorded Sex Assigned at Female 04/07/2021 2:32 PM CDT Legal Sex Female 10:33 AM TIME SIGNAL WIRER Gender Identity Female 04/07/2021 2:32 PM CDT [...] documented as of this encounter Care Teams Child Advocate Relationship Specialty Start Date End Date Mariel Galindo APRN ELECTRIC WIRER PCP - General Nurse Practitioner 08/13/14 06/08/22 No Ref-Primary, Physician PCP - General 06/09/22 06/02/23 Mariel Galindo APRN ELECTRIC WIRER Assigned PCP 10/21/14 04/10/22 Samia Silverman MD [address] [address] Assigned OBGYN Provider 08/04/20 Mariel Galindo APRN ELECTRIC WIRER Assigned PCP 06/27/22 01/08/23 Nadege Jones APRN ELECTRIC WIRER [address] [facility] [address] Assigned PCP 01/09/23 01/15/23 Mateo, Mariel Stout APRN ELECTRIC WIRER Assigned PCP 01/16/23 04/23/23 Nadege Jones APRN ELECTRIC WIRER [address] [place], [place] [address] Assigned PCP 04/24/23 10/06/23 Mateo, Mariel Stout APRN ELECTRIC WIRER Assigned PCP 10/07/23 11/04/23 Mateo, Mariel Stout APRN ELECTRIC WIRER Assigned PCP 11/05/23 12/03/23 Mateo, Mariel Stout APRN ELECTRIC WIRER Assigned PCP 12/04/23 01/03/24 Deja Mendez PA-C [address] [place] [address] Assigned PCP 01/04/24 documented as of this encounter
--- OUTSIDE RECORDS SUMMARY | 2024-08-18 11:59 | XMS_ITS | Encounter Summary ---
Author Organization [facility] Address [address] [place] [address] Care Team Providers Care Friction Welding Machine Operator Name Role Phone No Ref-Primary, Physician Primary Care Provider MateoMariel BLACK TOP MACHINE OPERATOR BAG CHECKER Unavailable Un available Nadege Jones APRN BAG CHECKER Unavailable [phone] MateoMariel BLACK TOP MACHINE OPERATOR BAG CHECKER Unavailable Un available MateoMariel APRN BAG CHECKER Unavailable Un available MateoMariel APRN BAG CHECKER Unavailable Un available Deja Mendez PA-C Unavailable [phone] Encounter Details Date Type Department Care Team (Late st Contact Info) Description 01/25/[address] [facility] [id number] [place] [address] Kimberly Montanez, [facility] Social History Tobacco Use Types Packs/Day Years Used Date Smoking Tobacco: Never Smokeless Tobacco: Never Alcohol Use Standard Drinks/Week Comments Yes 0 (1 standard drink = 0.6 oz pur e alcohol) wine occasionally PHQ-2 Answer Date Recorded PHQ-2 Total Score (Adult) - Positive if 3 or more points; Administer PHQ-9 if positive 2 11/24/2022 [place] Depression Scale Answer Date Recorded [place] Depression Score 16 12/04/2020 Last EPDS Self Harm Result Not on file 12/04 Comments No Sex and Gender Information Value Date Recorded Sex Assigned at Female 04/07/2021 2:32 PM CDT Legal Sex Female 10:33 AM FITNESS DIRECTOR Gender Identity Female 04/07/2021 2:32 PM CDT Sexual Orientation Straight 04/07/2021 2: 32 PM CDT documented as of this encounter Plan of Treatment Not on file documented as of this encounter Visit Diagnoses Not on filedocumented in this encounter Additional Health Concerns Assessment Noted Time PHQ-9 Depression Total Score: 12 023 3:55 PM CDT documented as of this encounter Care Teams Friction Welding Machine Operator Relationship Specialty Start Date End Date No Ref-Primary, Physician PCP - General 06/09/22 06/02/23 Mariel Galindo APRN BAG CHECKER Assigned PCP 01/16/23 04/23/23 Nadege Jones APRN BAG CHECKER [address] [place] [id number] Assigned PCP 04/24/23 10/06/23 Mariel Galindo APRN BAG CHECKER Assigned PCP 10/07/23 11/04/23 Mariel Galindo APRN BAG CHECKER Assigned PCP 11/05/23 12/03/23 Mariel Galindo APRN BAG CHECKER Assigned PCP 12/04/23 01/03/24 Deja Mendez PA-C [address] [place] [address] Assigned PCP 01/04/24 documented as of this encounter
--- OUTSIDE RECORDS SUMMARY | 2024-08-18 11:59 | XMS_ITS | Encounter Summary ---
Author Organization [facility] Address [address] [place] [address]. [place] [address] Care Team Providers Care Slice Plug Cutter Operator Helper Name Role Phone No Ref-Primary, Physician Primary Care Provider Mateo, Mariel Stout HUMAN RESOURCES MANAGER MANUFACTURING VFX ARTIST Unavailable Un available Nadege Jones APRN VFX ARTIST Unavailable Mateo, Mariel Stout HUMAN RESOURCES MANAGER MANUFACTURING VFX ARTIST Unavailable Un available Mateo, Mariel Stout APRN VFX ARTIST Unavailable Un available Mateo, Mariel Stout APRN VFX ARTIST Unavailable Un available Deja Mendez PA-C Unavailable [phone] Reason for Visit * Reason Onset Date Comments Refill Request 02/18/2023 Encounter Details Date Type Department Care Team (Late st Contact Info) Description 02/18/2023 MyC Refill M [address] [address] Amanda Tolbert PA-C [address] [facility] [address] [place], [place] [phone] Refill Request Social History Tobacco Use Types Packs/Day Years Used Date Smoking Tobacco: Never Smokeless Tobacco: Never Alcohol Use Standard Drinks/Week Comments Yes 0 (1 standard drink = 0.6 oz pur e alcohol) wine occasionally PHQ-2 Answer Date Recorded PHQ-2 Total Score (Adult) - Positive if 3 or more points; Administer PHQ-9 if positive 2 02/18/2023 [place] Depression Scale Answer Date Recorded [place] Depression Score 16 12/04/2020 Last EPDS Self Harm Result Not on file 12/04 Comments No Sex and Gender Information Value Date Recorded Sex Assigned at Female 04/07/2021 2:32 PM CDT Legal Sex Female 10:33 AM CHEFS Gender Identity Female 04/07/2021 2:32 PM CDT [...] documented as of this encounter Care Teams Slice Plug Cutter Operator Helper Relationship Specialty Start Date End Date No Ref-Primary, Physician PCP - General 06/09/22 06/02/23 Mariel Galindo APRN VFX ARTIST Assigned PCP 01/16/23 04/23/23 Nadege Jones APRN VFX ARTIST [address] [place] [phone] Assigned PCP 04/24/23 10/06/23 Mariel Galindo APRN VFX ARTIST Assigned PCP 10/07/23 11/04/23 Mariel Galindo APRN VFX ARTIST Assigned PCP 11/05/23 12/03/23 Mariel Galindo APRN VFX ARTIST Assigned PCP 12/04/23 01/03/24 Deja Mendez PA-C [address] [place] [address] Assigned PCP 01/04/24 documented as of this encounter
--- OUTSIDE RECORDS SUMMARY | 2024-08-18 11:59 | XMS_ITS | Encounter Summary ---
Author Organization [facility] Address [address] [place] [address] Care Team Providers Care Social Service Worker Name Role Phone Mateo, Mariel Stout MOTOR TESTER MULTICUT LINE OPERATOR Primary Care Provi adam Unavailable Mateo, Mariel Stout MOTOR TESTER MULTICUT LINE OPERATOR Unavailable Un available No Ref-Primary, Physician Primary Care Provider Mateo, Mariel Stout APRN MULTICUT LINE OPERATOR Unavailable Un available Nadege Jones APRN MULTICUT LINE OPERATOR Unavailable Mateo, Mariel Stout APRN MULTICUT LINE OPERATOR Unavailable Un available Nadege Jones APRN MULTICUT LINE OPERATOR Unavailable [phone] Mateo, Mariel Stout APRN MULTICUT LINE OPERATOR Unavailable Un available Mateo, Mariel Stout APRN MULTICUT LINE OPERATOR Unavailable Un available Mateo, Mariel Stout APRN MULTICUT LINE OPERATOR Unavailable Un available Deja Mendez PA-C Unavailable [phone] Encounter Details Date Type Department Care Team (Late st Contact Info) Description 02/10/2022 [facility] [address] [place] [phone] Tamra Chavez PA-C [address] [place], [place] [phone] Social History Tobacco Use Types Packs/Day Years Used Date Smoking Tobacco: Never Smokeless Tobacco: Never Alcohol Use Standard Drinks/Week Comments Yes 0 (1 standard drink = 0.6 oz pur e alcohol) wine occasionally PHQ-2 Answer Date Recorded PHQ-2 Score 2 11/21/2021 [place] Depression Scale Answer Date Recorded [place] Depression Score 16 12/04/2020 Last EPDS Self Harm Result Not on file 12/04 Comments No Sex and Gender Information Value Date Recorded Sex Assigned at Female 04/07/2021 2:32 PM CDT Legal Sex Female 10:33 AM WRIST HEMMER Gender Identity Female 04/07/2021 2:32 PM CDT [...] Depression Total Score: 13 022 7:03 AM WRIST HEMMER documented as of this encounter Care Teams Social Service Worker Relationship Specialty Start Date End Date [...] Jones APRN CNP [address] [place] [phone] Assigned PCP 04/24/23 10/06/23 Mateo, Mariel Stout APRN MULTICUT LINE OPERATOR Assigned PCP 10/07/23 11/04/23 Mateo, Mariel Stout APRN MULTICUT LINE OPERATOR Assigned PCP 11/05/23 12/03/23 Mateo, Mariel Stout APRN MULTICUT LINE OPERATOR Assigned PCP 12/04/23 01/03/24 Deja Mendez PA-C [address] [place] [address] Assigned PCP 01/04/24 documented as of this encounter
--- NOTE | 2024-08-18 12:00 | CRLHL7_ITS ---
For Patients: As a result of the Century Cures Act, medical imaging exams and procedure reports are released immediately into your electronic medical record. You may view this report before your referring provider. If you have questions, please contact your health care provider. INDICATION: fundal height measuring large, evaluate fluid COMPARISON: 08/04/2024 TECHNIQUE: Real-time ridley-scale imaging of the pelvis was performed. FINDINGS/IMPRESSION: : Normal kidneys, stomach and bladder. Vertex position. Posterior placenta. heart rate 155 beats per minute. Amniotic fluid single deepest pocket 9.3 cm. BOBO 21.5 cm. Dictated by Heber Call MD @ 08/20/2024 6:07:09 PM (Electronically Signed)
== END 2024-08-18 11:57 | disposition home or self-care (01) ==
LOC: US 11:57
PROVIDERS: Visit Provider Physician Assistant
DX: O99.810 Abnormal glucose complicating pregnancy (principal); O36.63X1 Maternal care for excessive fetal growth, third trimester, fetus 1
CPT/HCPCS: 76815; 82951; 82952

== ENCOUNTER 2024-09-04 11:40 | Outpatient (CLI) | payer OTHER, BC, SELFPAY ==
--- NOTE | 2024-09-04 11:30 | CRLHL7_ITS ---
For Patients: As a result of the Century Cures Act, medical imaging exams and procedure reports are released immediately into your electronic medical record. You may view this report before your referring provider. If you have questions, please contact your health care provider. INDICATION: Third trimester scan, evaluate growth. growth and BOBO COMPARISON: 08/18/2024 TECHNIQUE: Real time ridley scale imaging of the fetus was performed. FINDINGS/IMPRESSION: Sonographic imaging demonstrates a single living intrauterine gestation. Fetus demonstrates a regular cardiac rate of 163 beats per minute. Fetus has a vertex position. The placenta lies posteriorly. Amniotic fluid volume appears normal and there is a single deepest vertical pocket: 6.9 cm. BOBO 20.6 cm. The estimated weight is 1794gm which lies at the 20th %. On the prior OB ultrasound exam dated 08/04/2024 the estimated weight was at the 16th%. BPD 27th percentile. HC 4th percentile. AC 48th percentile. FL 4th percentile. The HC/AC ratio measures 1.01 range (0.96-1.16). Sonographic gestational age 31 weeks 3 days and a sonographic due date 11/03/2024. Sonographic age is 6 days behind the clinical age. Dictated by Heber Call MD @ 09/04/2024 1:12:02 PM (Electronically Signed)
== END 2024-09-04 11:41 | disposition home or self-care (01) ==
PROVIDERS: Visit Provider Advanced Practice Midwife
DX: O36.63X0 Maternal care for excessive fetal growth, third trimester, not applicable or unspecified (principal); Z3A.31 31 weeks gestation of pregnancy
CPT/HCPCS: 76816

== ENCOUNTER 2024-09-21 13:56 | Outpatient (CLI) | payer BC, SELFPAY ==
--- NOTE | 2024-09-21 14:00 | CRLHL7_ITS ---
For Patients: As a result of the Century Cures Act, medical imaging exams and procedure reports are released immediately into your electronic medical record. You may view this report before your referring provider. If you have questions, please contact your health care provider. INDICATION: Gestational diabetes TECHNIQUE: Limited transabdominal two-dimensional ridley-scale ultrasound examination. COMPARISON: 09/04/2024 FINDINGS: There is a living fetus in cephalic lie with gestational age of 34 weeks 5 days by LMP and EDC of 10/28/2024. The biophysical profile score is 8/8 with component scores of 2 for breathing movements, 2 for gross body movements, 2 for tone and 2 for amniotic fluid/SDP. The heart rate is measured at 147 beats per minute and the rhythm appears regular. The amniotic fluid volume is within normal limits with single deepest pocket of 7.9 cm. The placenta is posterior and superior to the cervical os. There is no evidence of previa. IMPRESSION: 1. Living fetus in cephalic lie with gestational age of 34 weeks 5 days by LMP and EDC of 10/28/2024. 2. Biophysical profile score is 8/8. Dictated by Rashawn Solorio MD @ 09/25/2024 7:56:35 AM (Electronically Signed)
== END 2024-09-21 13:57 | disposition home or self-care (01) ==
LOC: US 13:56
PROVIDERS: Visit Provider Obstetrics & Gynecology
DX: O24.419 Gestational diabetes mellitus in pregnancy, unspecified control (principal); Z3A.34 34 weeks gestation of pregnancy
CPT/HCPCS: 76819; 82728; 84443

== ENCOUNTER 2024-09-26 11:56 | Outpatient (CLI) | payer BC, SELFPAY ==
--- NOTE | 2024-09-26 12:15 | CRLHL7_ITS ---
For Patients: As a result of the Century Cures Act, medical imaging exams and procedure reports are released immediately into your electronic medical record. You may view this report before your referring provider. If you have questions, please contact your health care provider. INDICATION: Nonreactive nonstress test COMPARISON: 09/21/2024 TECHNIQUE: Real time ridley scale imaging of the fetus was performed. Without non-stress testing. FINDINGS: Sonographic imaging demonstrates a single living intrauterine gestation. Fetus demonstrates a regular cardiac rate of 137 beats per minute. Fetus has a vertex position. The amniotic fluid volume appears normal and there is a single deepest pocket measurement of 6.3 cm. The fetus was active and demonstrated normal breathing movements. There was normal flexion and extension of the trunk and extremities. IMPRESSION: Normal biophysical profile score of 8 out of 8. Dictated by Heber Call MD @ 09/26/2024 12:57:20 PM (Electronically Signed)
== END 2024-09-26 11:57 | disposition home or self-care (01) ==
LOC: US 11:57
PROVIDERS: Visit Provider Obstetrics & Gynecology
DX: O24.419 Gestational diabetes mellitus in pregnancy, unspecified control (principal)
CPT/HCPCS: 76819

== ENCOUNTER 2024-09-29 10:27 | Outpatient (CLI) | payer BC, OTHER, SELFPAY ==
--- NOTE | 2024-09-29 10:15 | CRLHL7_ITS ---
For Patients: As a result of the Cures Act, medical imaging exams and procedure reports are released immediately into your electronic medical record. You may view this report before your referring provider. If you have questions, please contact your health care provider. OB ULTRASOUND KEVIN by LMP: 10/28/2024. GA: 35 w, 6 d. Single. INDICATION: GDMA2. TECHNIQUE: Real time ridley scale imaging of the fetus was performed. Transabdominal. CERVIX: Not visualized. POSITIONING: Vertex. AMNIOTIC FLUID: 6.6 cm. SDP (N: greater than 2 x 1 cm) BIOPHYSICAL PROFILE: Total score: 8. Gross body movements: 2. tone: 2. Respiratory activity: 2. Amniotic fluid: 2. (SDP N: greater than 2 x 1 cm) PLACENTA: Technique: Transabdominal. PLACENTA POSITION: Posterior. DOPPLER: heart rate: 150 bpm. IMPRESSION: Normal biophysical profile score 8/8. Heber Call M.D. Diagnostic Radiologist [email or web address] LUPE/[email or web address] crawley/Dictated by: Heber Call MD @ 09/29/2024 12:11:00 PM (Electronically Signed)
== END 2024-09-29 10:28 | disposition home or self-care (01) ==
PROVIDERS: Visit Provider Obstetrics & Gynecology
DX: O24.419 Gestational diabetes mellitus in pregnancy, unspecified control (principal); Z3A.35 35 weeks gestation of pregnancy
CPT/HCPCS: 76819

== ENCOUNTER 2024-09-29 12:00 | Outpatient (CLI) | payer BC, OTHER, SELFPAY | END 2024-09-29 12:01 | disposition home or self-care (01) | LOC: NFLDREF 10-02 02:10 | PROVIDERS: Visit Provider Obstetrics & Gynecology | DX: Z34.83 Encounter for supervision of other normal pregnancy, third trimester (principal) | CPT/HCPCS: 87081; 87186; 87653 ==

== ENCOUNTER 2024-10-06 10:13 | Outpatient (CLI) | payer BC, SELFPAY ==
--- NOTE | 2024-10-06 10:15 | CRLHL7_ITS ---
For Patients: As a result of the Century Cures Act, medical imaging exams and procedure reports are released immediately into your electronic medical record. You may view this report before your referring provider. If you have questions, please contact your health care provider. INDICATION: GDM TECHNIQUE: Real time ridley scale imaging of the fetus was performed. COMPARISON: 09/29/2024 FINDINGS: Sonographic imaging demonstrates a single living intrauterine gestation. Fetus demonstrates a regular cardiac rate of 149 beats per minute. Fetus has a vertex position. The placenta lies posteriorly. Amniotic fluid volume appears normal and there is a single deepest pocket of 5.8 cm. The estimated weight is 2888gm which lies at the 39th %. On the prior OB ultrasound dated 09/04/2024 the estimated weight was at the 20th percentile. BPD 39th percentile. HC 8th percentile. AC is 76th percentile. FL less than 3rd percentile. The fetus was active and demonstrated normal breathing movements. There was normal flexion and extension of the trunk and extremities. IMPRESSION: Normal biophysical profile score 8/8. Sonographic gestational age 35 weeks 6 days and a sonographic due date 11/04/2024. Sonographic age 1 week behind the clinical age. FL less than 3rd percentile. Estimated weight 39th percentile. Abdominal circumference 76th percentile. Dictated by Heber Call MD @ 10/07/2024 1:04:36 PM (Electronically Signed)
== END 2024-10-06 10:14 | disposition home or self-care (01) ==
LOC: US 10:17
PROVIDERS: Visit Provider Obstetrics & Gynecology
DX: O24.419 Gestational diabetes mellitus in pregnancy, unspecified control (principal); Z3A.35 35 weeks gestation of pregnancy
CPT/HCPCS: 76816; 76819

== ENCOUNTER 2024-10-13 06:51 | Inpatient (IN) | payer BC, SELFPAY ==
[2024-10-13] VITALS (55 sets, daily range): BP systolic 94–125; BP diastolic 51–72; PULSE 66–113; RESP 14–16; TEMP 36.4–37.3; O2SAT 91–100; BMI 30.5
--- NOTE | 2024-10-13 07:32 | P.LDBA_ITS ---
Subjective History of Present Illness Date Seen: 10/13/24 Narrative: Patient is being admitted to Labor and Delivery for IOL due to poorly controlled GDMA2. She is a 39 year old at 37 6/7 weeks gestation. Her full history and physical was dictated by Dr. Winchester on 10/06/24. Please see this for details. Today, feeling well. Took her regular NPH dose last night-22 units. Specific Issues/Plans Partner:Stuart (1st baby) Children: Luciano, Raymundo, Mackenzie, Eric and [place]. Baby: Girl! Era H&P completed by Dr. Winchester on 10/06/2024. #Problem 1. AMA-declines genetic screen despite increased risk with age. 2. Grand multigravida 3. ADHD: stopped med (with knowledge of ). PHQ9-18, REBECCA-17 at NOB. Phone call 04/12/24 to discuss more. LM. Reviewed SSRI use and recommendation in . 07/14: to see ADHD provider and consider restarting Adderall. 4. Pruritus in 06/06/2024 labs drawn. 5. SGA on Lev 2; F/U ordered in 2 wks per recommendation (07/05 [facility]): findings---There has been good interval growth since the prior US although the EFW remains at the lower limit of normal (currently at the 12.6th percentile). Genoveva was happy to hear that her baby's growth has remained above the 10th percentile. Given EFW at the lower limit of normal, recommend repeat US to re- evaluate growth and anatomy with Nayeli Maldonado in 4 weeks. 08/04/2024: EFW 16%, SDP 7.6 consider repeat in 4 weeks. * 08/18: Measuring large for dates. Ultrasound for fluid assessment: Elevated SDP 9.34, normal BOBO 21.52 * 09/04/24; EFW 20%ile. SDP 6.9, BOBO 20.3cm * 10/06/2024: EFW 39%, BPD 39%, AC 76%, FL<3%, SDP 5.8 cm 6. Hypothyroid- in 13mcg levo. Recheck TSH 07/14/2024 normal. * 09/21: TSH 0.918 7. GDMA1 change to GDMA2 likely-all fasting abnormal despite interventions. * Nutrition consult? * Consult with provider for Diabetic Education 09/22/24: 12 U NPH at hs, increase to 14 units 09/26/24 * Increased NPH to 18u QHS 09/29/24, 10/03: increase to 22U * Twice weekly testing starting at 32 weeks? * Growth US every 4 weeks starting at 28 weeks.? * Recommend delivery:? * Well controlled: 39 0/7-39 6/7?? * Poorly controlled: 37 0/7-38 6/7 weeks?? * Failed in-hospital attempt at control: 36 0/7-36 6/7??? 8. Anemia in . 09/21: Hb 10.2, ferritin 5.8. 09/29/2024: Recommended FESO4 QOD w/ food. Imaginst tri US 04/11/24: SLIUP, hemorrhagic cyst on left ovary. To f/u if any pain or at 20w scan. Lev 2 US:see above F/U see above Covid: Flu: Tdap: 09/21/2024 RSV: 09/29/2024 GBS (+): PCN allergy, resistant to clindamycin so will receive Ancef when she is in labor..... OB - Problem Based A/P Additional Plan (1) GDM, class A2: Status: Acute (2) : Status: Acute Plan 1. IOL: IV Oxytocin and AROM after 4 hours of antibiotics. 2. GBS positive, allergy to amoxicillin. Plan to utilize Ancef. 3. BS monitoring and treatment per protocol. 4. Pain management as needed. 5. Continuous monitoring. 6. Grand multiparity, anemia, IOL: collect type and screen, TXA in room. OB Exam Physical Exam Vital signs: Pulse Ox 98 10/13/24 07:27 Detailed Labor and Delivery Exam Patient Gravid: Yes Fetus (Single) Amniotic Membrane Status: intact Heart Rate Baseline: 145 Monitor Accelerations: Present Monitor Decelerations: Variable Chcf Variability: Moderate (6-25)
[2024-10-13 07:49] LABS: Basophils Absolute Auto 0.02 K/uL (0.00-0.30); Basophils Percent Auto 0.2 % (0.0-3.0); Eosinophils Absolute Auto 0.07 K/uL (0.00-0.50); Eosinophils Percent Auto 0.8 % (0.0-7.0); Hematocrit* 30.4 % (33.0-51.0); Hemoglobin* 9.8 gm/dL (12.0-16.0); Immature Granulocytes Abs Auto 0.05 K/uL (0.00-0.30); Immature Granulocytes Pct Auto 0.6 %; Lymphocytes Percent Auto 12.3 % (20-44); Mean Corpuscular HGB Conc 32 gm/dL (32-36); Mean Corpuscular Hemoglobin 26 pg (26-34); Mean Corpuscular Volume 82 fL (80-100); Monocytes Percent Auto 9.3 % (0.0-11.0); Neutrophils Percent Auto 76.8 % (42.0-72.0); Platelet Count* 241 K/uL (140-440); Red Blood Count* 3.73 m/uL (4.00-5.20); White Blood Count* 8.63 K/uL (4.50-11.00)
[2024-10-13 07:50] LABS: Slide Review Reflex No
[2024-10-13] MEDS: LACTATED RINGERS 1000 ML 1,000 ML 125 ML IV (08:06)
[2024-10-13] MEDS: OXYTOCIN 30 unit/500 ML in NS 30 UNIT/500 ML BAG IVPB (08:06)
[2024-10-13] MEDS: CEFAZOLIN 2 GM in 0.9 % SODIUM CHLORIDE Mini-bag 100 ML IVPB (08:19)
--- NOTE | 2024-10-13 15:33 | PM.OBPNL ---
Subjective Date Seen: 10/13/24 Narrative: Okay Objective Vital Signs: Last Vital Signs Temp 98.5 F 10/13/24 13:44 Pulse 82 10/13/24 15:03 Resp 16 10/13/24 12:10 BP 108/55 L 10/13/24 15:03 Pulse Ox 98 10/13/24 07:27 Pelvic Exam Dilation (cm): 5 Effacement (%): 75 Station: -1 Contractions Monitor mode: External Contraction pattern: Regular Contraction intensity: Moderate Pitocin Rate (mU/min): 15 Assessment Assessment: induction ongoing Station: -1 Amniotic Membrane Status: AROM Heart Rate Baseline: 145 Professor Of English Variability: Moderate (6-25) Monitor Accelerations: Present Monitor Decelerations: Variable Maternal Status: Treated PP BS with 2 units of aspart. Plan Plan: AROM, patient tolerated procedure well. Will continue to titrate oxytocin.
[2024-10-13] MEDS: CEFAZOLIN 1 GM in 0.9 % SODIUM CHLORIDE Mini-bag 100 ML IVPB (16:17)
[2024-10-13] MEDS: LACTATED RINGERS 1000 ML 1,000 ML 1200 ML IV (17:06)
[2024-10-13] MEDS: ROPIVACAINE 0.2 % PF 10 ML INJ 20 MG EPIDURAL (17:16)
[2024-10-13] MEDS: LIDOCAINE 2% (PF) 5 ML VIAL EPIDURAL (17:16)
[2024-10-13] MEDS: ROPIVACAINE 0.2% 100 ml 100 ML 12 MG EPIDURAL (17:23)
--- NOTE | 2024-10-13 17:30 | PM.ANBPRC ---
[facility] Medical History ADHD (attention deficit hyperactivity disorder) ?F90.9 - Attention-deficit hyperactivity disorder, unspecified type (ICD-10) Hypothyroid ?E03.9 - Hypothyroidism, unspecified (ICD-10) Anxiety and depression ?F41.9 - Anxiety disorder, unspecified (ICD-10) ?F32.A - Depression, unspecified (ICD-10) Social History What is your current living situation?: I presently have a place to live Problems where you live: no known problems In the past 12 months, utilities in danger of being shut off: no In past 12 months, lack of transportation kept you from medical appts, meetings, work, or getting things needed for daily living: no In the past 12 mos, have been you worried that your food would run out before you had money to buy more?: never true In the past 12 mos, the food you bought just didn't last and you didn't have money to buy more?: never true Smoking Status: Never smoker How often does anyone, including family, friends and others, physically hurt you: never How often does anyone, including family, friends and others, insult or talk down to you: never How often does anyone, including family, friends and others, threaten you with harm: never How often does anyone, including family, friends and others, scream or curse at you: never Meds Home Medications and Allergies Home Medications ?Medication ?Instructions ?Recorded ?Confirmed ?Type ascorbate calcium (vitamin C) 500 500 mg PO QDAY 04/11/24 10/13/24 History mg tablet docosahexaenoic acid 200 mg mg PO 04/11/24 10/06/24 History capsule ( DHA) multivitamin with iron (Daily 1 tab PO QDAY 04/11/24 10/13/24 History Vitamin with Iron tablet) Allergies Allergy/AdvReac Type Severity Reaction Status Date / Time amoxicillin Allergy Intermediate Rash Verified 10/06/24 08:02 Results Labs Labs: Laboratory Results - last 24 hr 10/13/24 07:43 WBC 8.63 RBC 3.73 L Hgb 9.8 L Hct 30.4 L MCV 82 MCH 26 MCHC 32 RDW Coeff of Octavio 13.0 Plt Count 241 Neut % (Auto) 76.8 H Lymph % (Auto) 12.3 L Kinney % (Auto) 9.3 Eos % (Auto) 0.8 Baso % (Auto) 0.2 Neut # (Auto) 6.60 Lymph # (Auto) 1.10 Kinney # (Auto) 0.80 Eos # (Auto) 0.07 Baso # (Auto) 0.02 Abs Immat Gran (auto) 0.05 Imm/Tot Granulo (auto) 0.6 Blood Type A Positive Antibody Screen NEGATIVE Vital Signs Vital Signs: Last Vital Signs Temp 97.9 F 10/13/24 17:07 Pulse 82 10/13/24 15:03 Resp 16 10/13/24 12:10 BP 108/55 L 10/13/24 15:03 Pulse Ox 99 10/13/24 17:27 Weight: 83.325 kg Height: 165.1 cm Anesthesia Procedures Epidural Insertion Patient Location: OB Start Time: 16:45 Stop Time: 17:30 Start Date: 10/13/24 Stop Date: 10/13/24 Reason for Block: procedure for pain Patient Position: sitting Performed By: Angel Ramos Preanesthetic Checklist: IV checked, risks and benefits discussed, surgical consent, monitors and equipment checked, pre-op evaluation, timeout performed and anesthesia consent Prep: chlorhexidine gluconate Monitoring: blood pressure monitoring, continuous pulse oximetry and heart rate Approach: midline Vertebral Space: lumbar (1-5) Epidural Technique: TY air Needle Type: Tuohy needle Injection Technique: continuous catheter Needle gauge: 17 Needle Length (cm): 10 cm Needle Insertion Depth (cm): 7 Catheter Gauge: 19 Catheter Type: multi-orifice Catheter at skin depth (cm): 13 Test Dose Result: negative and lidocaine 1.5% with epinephrine 1 to 200,000
--- NOTE | 2024-10-13 19:31 | W.PM.OBVAGDE ---
OB Procedure Vag Delivery Mother Details Mother Details: The patient is a 39 year-old, 7, Para 5, admitted on 10/13/24 at 37 6/7 Days gestation. IOL due to uncontrolled GDMA2. : 7 Para: 6 Weeks Gestation: 37.6 Admission Date: 10/13/24 Additional Details Amniotic Membrane Status: AROM Amniotic Membrane Rupture Date: 10/13/24 Amniotic Membrane Rupture Time: 15:13 Amniotic Membrane Fluid Description: Clear Analgesia/Anesthesia Type: Epidural Waterbirth: No Pitcoin: Yes Intrapartal Events: Labor Induction Induction Method: per pitocin protocol and AROM Labor Onset: 15:15 Complete: 19:00 Pushin:06 Heart: heart tones during second stage were category 1. Delivery Details Delivery Date: 10/13/24 Delivery Time: 19:09 Route of delivery: Infant Gender: Female Viability: Alive; Heart Rate Present Position at Delivery: OA Delivery Details: Delivered via spontaneous vaginal delivery. was placed on maternal abdomen.? Cord was clamped and cut after a 30-60 second delay. Nose and mouth were bulb suctioned.? weight pending. 1 Minute Interval Total Score: 9 5 Minute Interval Total Score: 9 Additional Details Shoulder Dystocia: No Placenta Delivery Time: 19:18 Placental Delivery Description: Spontaneous Procedure Done: Global Blood Loss: 100 Laceration: Periurethral - 1st Degree (Not bleeding, not repaired) Episiotomy Description: None Blood Loss Measurement Type: QBL Bakri Used: No Sponge/Need Count Correct: Yes Cord Vessel Description: 3 Vessels Event Summary Status: Mother and infant were stable after delivery. Disposition: floor
[2024-10-13] MEDS: IBUPROFEN 600 MG TABLET PO (21:36)
[2024-10-14] MEDS: IBUPROFEN 600 MG TABLET PO ×2 (03:41→18:42)
[2024-10-14 03:43] VITALS: BP 97/56; PULSE 61; RESP 14; TEMP 36.6; O2SAT 100
[2024-10-14] MEDS: FERROUS SULFATE 325 MG TABLET PO (08:33)
[2024-10-14] MEDS: ACETAMINOPHEN 500 MG TABLET 1000 MG PO ×2 (08:33→18:44)
[2024-10-14] MEDS: DOCUSATE SODIUM 100 MG CAPSULE PO (08:34)
--- NOTE | 2024-10-14 09:02 | PM.OBDSVD1 ---
DS: Providers Provider Time Seen by Provider: 09:02 Date Seen: 10/14/24 Date of admission: 10/13/24 06:51 Primary care physician: Not a Local Provider Admitting Clinician: Lisa Thurston MD Attending Physician on discharge: Lisa Thurston MD Exam Narrative: Exam Narrative: General: Alert and oriented, no acute distress Psych: Appropriate mood and affect Abdomen: Soft, nondistended. Fundus at 1 below umbilicus. Abdomen is nontender, no rebound or guarding. Extremities: Soft, non-tender and non-erythematous. Const: Vital Signs, click to edit/add: Vital Signs - 24 hr 10/13/24 10:17 10/13/24 10:17 10/13/24 11:13 Temperature 99.1 F Pulse Rate 78 76 Pulse Rate [Pulse Oximeter] Respiratory Rate Blood Pressure 108/63 105/67 Blood Pressure [Le ft Arm] [facility] 12:10 10/13/24 12:10 10/13/24 12:57 Temperature 98.3 F Pulse Rate 75 82 Pulse Rate [Pulse Oximeter] Respiratory Rate 16 Blood Pressure 101/63 106/64 Blood Pressure [Le ft Arm] Pulse Oximetry [facility] 10/13/24 13:44 10/13/24 13:44 10/13/24 15:03 Temperature 98.5 F Pulse Rate 79 82 Pulse Rate [Pulse Oximeter] Respiratory Rate Blood Pressure 103/59 L 108/55 L Blood Pressure [Le ft Arm] Pulse Oximetry [facility] 10/13/24 15:31 10/13/24 17:07 10/13/24 17:17 Temperature 98.4 F 97.9 F Pulse Rate Pulse Rate [Pulse Oximeter] Respiratory Rate Blood Pressure Blood Pressure [Le ft Arm] Pulse Oximetry 100 [facility] 10/13/24 17:18 10/13/24 17:22 10/13/24 17:24 Temperature Pulse Rate Pulse Rate [Pulse Oximeter] Respiratory Rate Blood Pressure Blood Pressure [Le ft Arm] Pulse Oximetry 91 99 94 [facility] 10/13/24 17:27 10/13/24 17:30 10/13/24 17:31 Temperature Pulse Rate 83 83 Pulse Rate [Pulse Oximeter] Respiratory Rate Blood Pressure 112/57 L 111/66 Blood Pressure [Le ft Arm] Pulse Oximetry 99 Oxygen Delivery [facility] 10/13/24 17:32 10/13/24 17:33 10/13/24 17:35 Temperature Pulse Rate 78 81 Pulse Rate [Pulse Oximeter] Respiratory Rate Blood Pressure 107/58 L 107/60 Blood Pressure [Le ft Arm] Pulse Oximetry 100 Oxygen Delivery [facility] 10/13/24 17:37 10/13/24 17:42 10/13/24 17:43 Temperature Pulse Rate 73 93 Pulse Rate [Pulse Oximeter] Respiratory Rate Blood Pressure 109/58 L 107/62 Blood Pressure [Le ft Arm] Pulse Oximetry 100 100 Oxygen Delivery [facility] 10/13/24 17:47 10/13/24 17:50 10/13/24 17:52 Temperature Pulse Rate 75 Pulse Rate [Pulse Oximeter] Respiratory Rate Blood Pressure 112/64 Blood Pressure [Le ft Arm] Pulse Oximetry 100 96 Oxygen Delivery [facility] 10/13/24 17:52 10/13/24 17:53 10/13/24 17:57 Temperature Pulse Rate 87 Pulse Rate [Pulse Oximeter] Respiratory Rate Blood Pressure 119/66 Blood Pressure [Le ft Arm] Pulse Oximetry 94 99 Oxygen Delivery [facility] 10/13/24 17:58 10/13/24 18:02 10/13/24 18:04 Temperature Pulse Rate 90 74 Pulse Rate [Pulse Oximeter] Respiratory Rate Blood Pressure 113/72 114/65 Blood Pressure [Le ft Arm] Pulse Oximetry 100 Oxygen Delivery Me [facility] 10/13/24 18:05 10/13/24 18:07 10/13/24 18:07 Temperature 97.6 F Pulse Rate Pulse Rate [Pulse Oximeter] Respiratory Rate Blood Pressure Blood Pressure [Le ft Arm] Pulse Oximetry 93 98 Oxygen Delivery Me [facility] 10/13/24 18:12 10/13/24 18:17 10/13/24 18:22 Temperature Pulse Rate Pulse Rate [Pulse Oximeter] Respiratory Rate Blood Pressure Blood Pressure [Le ft Arm] Pulse Oximetry 100 100 100 Oxygen Delivery Me [facility] 10/13/24 18:27 10/13/24 18:32 10/13/24 18:37 Temperature Pulse Rate 97 Pulse Rate [Pulse Oximeter] Respiratory Rate Blood Pressure 125/69 Blood Pressure [Le ft Arm] Pulse Oximetry 100 100 Oxygen Delivery Me od 10/13/24 19:25 10/13/24 19:33 10/13/24 19:51 Temperature Pulse Rate 82 81 81 Pulse Rate [Pulse Oximeter] Respiratory Rate Blood Pressure 122/63 111/63 102/51 L Blood Pressure [Le ft Arm] Pulse Oximetry Oxygen Delivery Me [facility] 10/13/24 20:21 10/13/24 20:33 10/13/24 20:45 Temperature 98.6 F Pulse Rate 76 83 Pulse Rate [Pulse Oximeter] Respiratory Rate Blood Pressure 94/53 L 99/63 Blood Pressure [Le ft Arm] Pulse Oximetry Oxygen Delivery Me [facility]od 10/13/24 20:48 10/13/24 21:03 10/13/24 21:18 Temperature Pulse Rate 76 85 100 Pulse Rate [Pulse Oximeter] Respiratory Rate Blood Pressure 105/68 108/69 105/67 Blood Pressure [Le ft Arm] Pulse Oximetry Oxygen Delivery Me [facility] 10/13/24 21:33 10/13/24 23:38 10/14/24 03:43 Temperature 98.1 F 98 F Pulse Rate 96 Pulse Rate [Pulse Oximeter] 80 61 Respiratory Rate 14 14 Blood Pressure 98/59 L Blood Pressure [Le ft Arm] 95/59 L 97/56 L Pulse Oximetry 100 Oxygen Delivery Me thod Room Air Room Air OB - DS: Summary Hospital Course Hospital Course: The patient is a 39 year old G7 P 6 at 37 weeks gestation that was admitted to the Center on 10/13/24 for poorly controlled GDMA2. was otherwise complicated by AMA, grandmultiparity and anemia. She had an uncomplicated vaginal delivery the evening of 10/13. She delivered a viable female . She is bottle feeding. the patient has done well. Madeline is feeling well with no acute concerns today. She notes her back is sore, taking ibuprofen/tylenol. No significant abdominal, pelvic or perineal pain. Lochia is moderate, no concerns. She is tolerating PO intake without nausea/vomiting. No bowel or bladder concerns. Ambulates without dizziness/lightheadedness. She is formula feeding, plans to suppress milk with compression/cold therapy and avoiding stimulation as she has done well with this in the past. Discussed pain management for engorgement and signs/symptoms of mastitis. She is bonding well with baby. [place] Gender: Female Time Spent with Patient Time attestation: Total time spent providing and/or coordinating discharge services: Discharge Plan Discharge Disposition: Home, Self-Care Date of Admission: 10/13/24 06:51 Primary Care Provider: Provider,Not a Local Condition: Stable Anticipated Discharge Date/Time: 10/14/24 19:00 Discharge Medications: Continued DHA 200 mg capsule 200 mg PO DAILY multivitamin with iron [Daily Vitamin with Iron] Tablet 1 tab PO QDAY ascorbate calcium (vitamin C) 500 mg tablet 500 mg PO QDAY levothyroxine 13 mcg capsule 13 mcg PO QDAY Qty: 90 3RF Discontinued (DME) Blood Glucose Meter Misc See Rx Instructions .MEDSUPPLY Qty: 1 0RF Rx Instructions: As directed (DME) lancets Misc See Rx Instructions .MEDSUPPLY Qty: 200 3RF Rx Instructions: Test blood sugar 4 times daily. (DME) Test Strips Misc See Rx Instructions .MEDSUPPLY Qty: 200 3RF Rx Instructions: Test blood sugar 4 times daily. Humulin N NPH U-100 Insulin 100 unit/mL suspension 12 unit subcut .hs Qty: 30 2RF Rx Instructions: 12 units at bedtime alcohol swabs Pads, Medicated 1 pad topical DAILY Qty: 100 1RF (DME) insulin syringe-needle U-100 [Sure Comfort Insulin Syringe] 1 mL 30 gauge x 5/16 syringe See Rx Instructions .ROUTE .MEDSUPPLY Qty: 100 3RF Rx Instructions: use at HS Discharge Orders: Discharge Order (Routine); Ordered 10/14/24 Ordered By: Kimi Alvarado Additional Instructions: Discharge instructions were reviewed with the patient including signs and symptoms of infection and home going medications Nothing vaginally for 6 weeks: no tampons or intercourse Do not drive while taking narcotic pain medication(s) Off Work or School for 8 weeks Symptoms to report to doctor: Bleeding that saturates more than one pad per hour Passing clots larger than the size of a golf ball Pain not relieved by prescribed medication Fever above 100.4 degrees Fahrenheit A foul vaginal odor Difficulty in emotions, mood, and functions Thoughts of hurting yourself and/or Painful, reddened area in your breast Any drainage, redness, or tenderness in your IV/epidural site Severe headache that doesn't improve after taking medications Changes in vision, including temporary loss of vision, blurred vision, and/or light sensitivity Upper abdominal pain (usually under ribs on the right side) Decrease in urination or painful, frequent urinating Chest pain Shortness of breath Tenderness or pain with redness and/swelling in the calf(s) of your leg *You will require a 2 hour glucose tolerance test at one of your visits* 2-week visit: discuss infant feeding concerns, review control options and screen for anxiety/depression. 6-week visit for an annual exam. consultation services are available to all mothers and babies for the first year after delivery.? To make an appointment, please call [phone]. Follow Up Appointments: Provider,Not a Local [Primary Care Provider] - Forms: [facility] Info Instructions
[2024-10-14 09:15] VITALS: BP 101/67; PULSE 78; RESP 16; TEMP 36.5; O2SAT 98
[2024-10-14 13:57] VITALS: BP 106/60; PULSE 78; RESP 16; TEMP 36.8; O2SAT 98
[2024-10-14 19:14] VITALS: BP 103/59; PULSE 69; RESP 16; O2SAT 99
[2024-10-14 21:23] LABS: Rapid Plasma Reagin (RPR) Non Reactive (Non Reactive)
== END 2024-10-14 19:40 | disposition home or self-care (01) | DRG 560 ==
PROVIDERS: Admitting Provider Obstetrics & Gynecology; Visit Provider Obstetrics & Gynecology
DX: O24.424 Gestational diabetes mellitus in childbirth, insulin controlled (principal); O99.824 Streptococcus B carrier state complicating childbirth; F90.9 Attention-deficit hyperactivity disorder, unspecified type; F41.9 Anxiety disorder, unspecified; F32.A Depression, unspecified; O70.0 First degree perineal laceration during delivery; O99.284 Endocrine, nutritional and metabolic diseases complicating childbirth; E03.9 Hypothyroidism, unspecified; L29.9 Pruritus, unspecified; O99.02 Anemia complicating childbirth; D64.9 Anemia, unspecified; Z37.0 Single live birth
CPT/HCPCS: 01967; 36415; 82962; 85018; 85025; 86592; 86850; 86900; 86901; 88307; A9270; J0690; J2371; J2795; J7120